=== PATIENT | male | born 1945 | race Caucasian/White ===

== ENCOUNTER 2022-09-08 09:19 | Outpatient (OUT) | payer MEDICARE, OTHER, SELFPAY ==
[2022-09-08 12:27] LABS: Prostate Specific Antigen Dx 0.96 ng/mL (<=4.00)
[2022-09-09 08:09] LABS: Testosterone 322 ng/dL (264-916)
== END 2022-09-08 09:20 ==
PROVIDERS: PCP Family Medicine
DX: N40.1 Benign prostatic hyperplasia with lower urinary tract symptoms (principal)
CPT/HCPCS: 36415; 84153

== ENCOUNTER 2022-09-08 09:25 | Outpatient (OUT) | payer MEDICARE, OTHER, SELFPAY ==
[2022-09-08 11:23] LABS: Basophils Percent Auto 0.4 % (0.2-2.0); Eosinophils Absolute Auto 0.1 10^3/uL (0.0-0.7); Eosinophils Percent Auto 2.1 % (0.9-7.0); Hematocrit 56.9 % (42.0-54.0); Hemoglobin 18.9 g/dL (14.0-18.0); Immature Granulocytes Abs Auto 0.02 10^3/uL (0.00-0.03); Immature Granulocytes Pct Auto 0.3 % (0.0-0.5); Lymphocytes Absolute Auto 1.7 10^3/uL (1.2-3.8); Lymphocytes Percent Auto 25.3 % (20.5-60.0); Mean Corpuscular HGB Conc 33.2 g/dL (29.9-35.2); Mean Corpuscular Hemoglobin 31.1 pg (25.9-34.0); Mean Corpuscular Volume 93.6 fL (80.0-94.0); Monocytes Absolute Auto 0.7 10^3/uL (0.3-0.8); Monocytes Percent Auto 9.9 % (1.7-12.0); Neutrophils Absolute Auto 4.1 10^3/uL (1.4-6.5); Platelet Count 154 10^3/uL (150-450); Red Blood Count 6.08 10^6/uL (4.70-6.10); Red Cell Distribution Width 14.3 % (11.0-15.0); White Blood Count 6.7 10^3/uL (4.0-11.0)
[2022-09-08 13:26] LABS: Alanine Aminotransferase 48 U/L (16-63); Albumin Globulin Ratio 0.9; Albumin Level 3.8 g/dL (3.4-5.0); Alkaline Phosphatase 75 U/L (46-116); Anion Gap 11.4; Aspartate Amino Transferase 26 U/L (15-37); Bilirubin Total 0.8 mg/dL (0.2-1.0); Calcium 9.4 mg/dL (8.5-10.1); Carbon Dioxide 27.1 mmol/L (21.0-32.0); Chloride 104 mmol/L (98-107); Estimated GFR (African America >60 (>=60); Estimated GFR (Non-African Ame 52 (>=60); Globulin 4.3 g/dL; Glucose 105 mg/dL (74-106); Potassium 4.5 mmol/L (3.5-5.1); Sodium 138 mmol/L (136-145); Thyroid Stimulating Hormone 1.196 uIU/mL (0.358-3.740); Total Protein 8.1 g/dL (6.4-8.2)
== END 2022-09-08 09:26 ==
LOC: LAB 09:27
PROVIDERS: PCP Family Medicine; Visit Provider Family Medicine
DX: N40.1 Benign prostatic hyperplasia with lower urinary tract symptoms (principal); E03.9 Hypothyroidism, unspecified; I10 Essential (primary) hypertension; N52.9 Male erectile dysfunction, unspecified
CPT/HCPCS: 36415; 80053; 84153; 84403; 84436; 84443; 85025

== ENCOUNTER 2022-10-24 20:50 | Outpatient (OUT) | payer MEDICARE, OTHER, SELFPAY | END 2022-10-24 20:51 | disposition home or self-care (01) | LOC: SLEEP 20:50 | PROVIDERS: PCP Psychiatry & Neurology Neurology; Visit Provider Psychiatry & Neurology Neurology | DX: G47.33 Obstructive sleep apnea (adult) (pediatric) (principal) | CPT/HCPCS: 95811 ==

== ENCOUNTER 2022-11-03 07:56 | Outpatient (OUT) | payer MEDICARE, OTHER, SELFPAY ==
[2022-11-03 08:27] LABS: Hemoglobin 17.5 g/dL (14.0-18.0)
[2022-11-03 09:08] LABS: Alanine Aminotransferase 45 U/L (16-63); Albumin Level 3.8 g/dL (3.4-5.0); Alkaline Phosphatase 71 U/L (46-116); Aspartate Amino Transferase 22 U/L (15-37); Bilirubin Direct 0.2 mg/dL (0.0-0.2); Bilirubin Total 0.7 mg/dL (0.2-1.0); Chol HDL Ratio 4.7; Cholesterol 169 mg/dL (<=200); Globulin 3.8 g/dL; HDL Cholesterol 36 mg/dL (40-60); Total Protein 7.6 g/dL (6.4-8.2); Triglycerides 88 mg/dL (<=150); VLDL CHOLESTEROL 17.6 mg/dL
== END 2022-11-03 07:57 ==
LOC: LAB 11-14 07:57
PROVIDERS: PCP Psychiatry & Neurology Neurology
DX: E29.1 Testicular hypofunction (principal)
CPT/HCPCS: 36415; 80061; 80076; 85014; 85018

== ENCOUNTER 2022-11-29 09:31 | Outpatient (OUT) | payer MEDICARE, OTHER, SELFPAY ==
[2022-11-30 04:10] LABS: Testosterone 561 ng/dL (264-916)
== END 2022-11-29 09:32 | disposition home or self-care (01) ==
LOC: LAB 09:34
PROVIDERS: PCP Family Medicine
DX: E29.1 Testicular hypofunction (principal)
CPT/HCPCS: 36415; 84403

== ENCOUNTER 2023-03-04 10:22 | Outpatient (OUT) | payer MEDICARE, OTHER, SELFPAY ==
[2023-03-05 08:12] LABS: Testosterone 530 ng/dL (264-916)
== END 2023-03-04 10:23 | disposition home or self-care (01) ==
LOC: LAB 10:24
PROVIDERS: PCP Family Medicine; Visit Provider Physician Assistant
DX: E29.1 Testicular hypofunction (principal)
CPT/HCPCS: 36415; 84403

== ENCOUNTER 2023-06-14 10:04 | Outpatient (OUT) | payer MEDICARE, OTHER, SELFPAY ==
--- OUTSIDE RECORDS SUMMARY | 2023-06-14 10:28 | XMS_ITS | CCD ---
Author Name Unknown Address [address] [place] [id number] Organization [facility] Care Team Providers Care Loading Inspector Name Role Phone NARCISO MARINELLI Attending Unavailable RICE, MURALI Blancas Referring Unavailable FANNING, NARCISO Zapien Referring Unavailable FANLUISA, NARCISO Zapien Attending Unavailable RUPERTO BLAS Referring Unavailab Frederick Villafuerte Primary Care Physician [phone] LISA, DR HARMAN Primary Care Unavailable SCOTT, DR MURALI Blancas Consulting Unavailable RICE, DR MURALI Blancas Admitting Unavailable RICE, DR MURALI Blanacs Attending Unavailable HOUSE, DR HARMAN Admitting Unavailable HOUSE, DR HARMAN Attending Unavailable HOUSE, DR HARMAN Consulting Unavailable HOUSE, DR HARMAN Primary Care Unavailable RICE, DR MURALI Blancas Attending Unavailable HOUSE, DR HARMAN Primary Care Unavailable RICE, DR MURALI Blancas Consulting Unavailable RICE, DR MURALI Blancas Admitting Unavailable HOUSE, DR HARMAN Primary Care Unavailable RICE, DR MURALI Blancas Attending Unavailable RICE, DR MURALI Blancas Consulting Unavailable SCOTT, DR MURALI Blancas Admitting Unavailable Magnolia Costa Unavailable Murali SCHRADER Attending Unavailable DARRION VIERA Attending Unavailab DARRION Mays Attending Unavailab DARRION Mays Admitting Unavailab DARRION Mays Attending Unavailab le SCOTT, Murali Blancas Attending Unavailable Myrna Isbell Unavailable Allergies Allergy Classification Reported Allergen(s) Allergy Type Date of Onset Reaction(s) Facility (1 source) No Known Medication Allergies; 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: [No Known Medication Allergies] Propensity to adverse reactions (disorder) [facility] Repository Medications Current Medications Medication Drug Class(es) Dates Sig (Normalized) Sig (Original) amoxicillin 875 mg / clavulanate 125 mg oral tablet (1 source) Penicillin-class Antibacterial Start: 03-19-2023 take 1 tablet by mouth every twelve hours Amoxicillin-Pot Clavulanate 875-125 MG 1 tablet Orally every 12 hrs for 10 day(s) Mar, Active azithromycin 250 mg oral tablet (2 sources) Macrolide Antimicrobial Start: 03-15-2023 Zithromax Z-Jean-Claude 250 MG as directed Orally Mar, Active levothyroxine sodium 0.075 mg oral tablet (6 sources) l-Thyroxine Start: 10-10-2020 take 1 tablet by mouth once daily levothyroxine 75 mcg (0.075 mg) Tab mcg tab(s), Oral, Daily, Refills(s) 0 Start Date: 10/10/20 Status: Ordered take 1 tablet by bryanna th once daily in the morning Levothyroxine Sodium 75 MCG 1 tablet in the morning on an empty stomach Orally Once a day Active omeprazole 10 mg delayed release oral capsule (6 sources) Proton Pump Inhibitor Start: 12-29-2018 take 1 mg by mouth once daily Prilosec 10 mg Cap-EC mg cap(s), Oral, Daily, Refills(s) 0 Start Date: 12/29/18 Status: Ordered take 1 capsule by mouth once skye ly PriLOSEC 10 MG 1 capsule 30 minutes before morning meal Orally Once a day Active tadalafil 5 mg oral tablet (3 sources) Phosphodiesterase 5 Inhibitor Start: 10-23-2018 take 1 tablet by mouth once daily Cialis 5 mg oral tablet 5 mg = 1 tab(s), Oral, Daily Start Date: 10/23/18 Status: Ordered Temazepam (5 sources) Benzodiazepine Start: 12-25-2018 temazepam 30 m g Start Date: 12/25/18 Status: Ordered Temazepam Not-Ta radha/PRN testosterone cypionate 100 mg/ml injectable solution (5 sources) Androgen Start: 10-17-2022 testosterone c ypionate 100 mg/mL intramuscular solution 50 mg, IntraMuscular, q5day, # 10 mL, Refills(s) 5, Pharmacy: [facility] #[id number], 172, cm, 10/17/22 13:50:00 EDT, Height/Length Dosing, 95, kg, 10/17/22 13:50:00 EDT, Weight Dosing Start Date: 10/17/22 Status: Ordered Start: 01-22-2022 testosterone c ypionate 100 mg/mL intramuscular solution 50 mg, IntraMuscular, q5day, # 10 mL, Refills(s) 3, Pharmacy: [facility] #[id number], 172, cm, 10/16/21 14:53:00 EDT, Height/Length Dosing, 95, kg, 10/16/21 14:53:00 EDT, Weight Dosing Start Date: 01/22/22 Status: Ordered Start: 10-16-2021 testosterone c ypionate 100 mg/mL intramuscular solution 50 mg, IntraMuscular, q7day, # 10 mL, Refills(s) 3, Pharmacy: [facility] #[id number], 172, cm, 10/16/21 14:53:00 EDT, Height/Length Dosing, 95, kg, 10/16/21 14:53:00 EDT, Weight Dosing Start Date: 10/16/21 Status: Ordered Start: 09-28-2019 Depo-Testoster one 50 mg, IntraMuscular Start Date: 09/28/19 Status: Ordered Testosterone Cypionate 50 MG/ML (3 sources) Testosterone Cyp ionate 50 MG/ML as directed Injection Active Timolol (6 sources) beta-Adrenergic Lala Start: 10-10-2020 Timolol GFS 0.5% Gel drop(s), Daily, Refill(s) 0 Start Date: 10/10/20 Status: Ordered Start: 10-10-2020 Timolol GFS 0. 5% Gel drop(s), Daily, Refill(s) 0 Start Date: 10/10/20 Status: Ordered Timolol Maleate Active valsartan 80 mg oral tablet (6 sources) Angiotensin 2 Receptor Lala Start: 10-10-2020 take 1 mg by mouth once daily valsartan 80 mg Tab mg tab(s), Oral, Daily, Refills(s) 0 Start Date: 10/10/20 Status: Ordered take 1 tablet by bryanna every twelve hours Valsartan 40 MG 1 tablet Orally Twice a day Active zolpidem tartrate 12.5 mg extended release oral tablet (4 sources) gamma-Aminobutyric Acid-ergic Agonist Start: 10-17-2022 take 1 tablet by mouth once daily at bedtime as needed for sleep Ambien CR 12.5 mg Tab-ER 12.5 mg = 1 tab(s), Oral, Once a day (at bedtime), PRN for sleep Start Date: 10/17/22 Status: Ordered Completed/Discontinued Medications Medication Drug Class(es) Dates Sig (Normalized) Sig (Original) methylPREDNISolone 4 mg oral tablet (3 sources) Corticosteroid Start: 12-31-2019 Medrol 4 MG as directed Orally for 6 days Dec, Not-Taking/PRN Triamcinolone (3 sources) Corticosteroid Start: 12-31-2019 KENALOG - 10 mg Dec, 40 mg Problems Active Problems Problem Classification Problem Date Documented Da te Episodic/Chronic Coagulation and hemorrhagic disorders (1 source) Thrombocytopenia, unspecified; 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: [THROMBOCYTOPENIA UNSPECIFIED] Onset: 09-12-2021 Chronic Essential hypertension (1 source) Essential (primary) hypertension; 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: [ESSENTIAL PRIMARY HYPERTENSION] Onset: 09-12-2021 Chronic Genitourinary symptoms and ill-defined conditions (4 sources) Delay when starting to pass urine; 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: [Microscopic hematuria] Onset: 10-17-2022 10-23-2018 Episodic Hyperplasia of prostate (14 sources) Benign prostatic hypertrophy with outflow obstruction; 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: [Benign prostatic hyperplasia with lower urinary tract symptoms] Onset: 09-01-2021 Chronic Other circulatory disease (1 source) Elevated blood-pressure reading, without diagnosis of hypertension Episodic Other endocrine disorders (3 sources) Testicular hypofunction; 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: [Testicular hypofunction] Onset: 10-16-2021 Chronic Other endocrine disorders (3 sources) Male hypogonadism 10-23-2018 Chronic Other endocrine disorders (5 sources) Testicular hypofunction; 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: [TESTICULAR HYPOFUNCTION] Onset: 09-07-2021 Chronic Other hematologic conditions (1 source) Secondary polycythemia; 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: [Secondary polycythemia] Onset: 05-29-2018 Episodic Other male genital disorders (3 sources) Impotence 10-23-2018 Chronic Other nutritional; endocrine; and metabolic disorders (3 sources) Body mass index 30+ - obesity 04-04-2020 Chronic Other upper respiratory infections (3 sources) Acute pharyngitis, unspecified; 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: [Acute pansinusitis, unspecified] Episodic Residual codes; unclassified (3 sources) Sleep apnea 10-23-2018 Chronic Residual codes; unclassified (3 sources) Insomnia 10-23-2018 Episodic Thyroid disorders (1 source) Hypothyroidism, unspecified; 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: [HYPOTHYROIDISM UNSPECIFIED] Onset: 09-12-2021 Chronic Unclassified (3 sources) Asymptomatic microscopic hematuria 04-04-2020 Unclassified (3 sources) Drug therapy finding 10-23-2018 Past or Other Problems Problem Classification Problem Date Documented Da te Episodic/Chronic Unclassified (1 source) Contact with and (suspected) exposure to covid-19 Z20.822 Results Test Name Value Interpretation Reference Range Facility [facility] 03-19-2023 Lab Reports [id number] IFF Normal [facility] COVID + FLU Quick Testingon 03-14-2023 SARS-CoV-2 (COVID-19) RNA STEFF+probe Ql (Unsp spec) Negative [facility] Other COVID + FLU Quick Testing Negative [facility] Other Quick Strepon 03-14-2023 S. pyogenes Org specific cx Ql (Throat) Negative [facility] Other Quick Strep [facility] Other [facility] 12-04-2022 Lab Reports [id number] D:127 Normal [facility] 11-27-2022 Lab Reports [id number] D:127 Normal [facility] C Urineon 10-19-2022 Bacteria identified Cx Nom (U) Microbiology PROCEDURE: Urine Culture [R1] SOURCE: U Random BODY SITE: COLLECTED DATE/TIME: 10/17/2022 15:25 EDT RECEIVED DATE/TIME: 10/17/2022 18:26 EDT START DATE/TIME: 10/17/2022 18:26 EDT FREE TEXT SOURCE: EWA VIERA PA-C, PA-C, JENNIFER E FINAL REPORTS Final Report [] Verified Date/Time: 10/19/2022 11:24 EDT No growth at 2 days. Performing Locations R1: This test was performed at: [facility], [address] [place] [address], [address] [email or web address]], [facility] Comment on above: Performed By: #### 2 [id number] ####[facility] [address] [place] [address] [facility] 10-19-2022 Lab Reports [id number] CD:127 [facility] Screenson 10-19-2022 Screens [id number] CD:127 [facility] Ambulatory Visit Summaryon 0 10-17-2022 Ambulatory Visit Summary LAMONT LOWERY :1945 MRN: Visit Date:10/17/2022 Ambulatory Visit Instructions Your Diagnosis BPH with urinary obstruction Male hypogonadism Asymptomatic microscopic hematuria Tests Performed Urnls Dip Stick Auto w/o Microscopy POC [id number] Your Care Team Attending Physician - EWA VIERA PA-C Primary Care Physician - Frederick Gonzalez DO This Is Your Medications List testosterone (testosterone cypionate 100 mg/mL intramuscular solution) Contact prescribing physician if questions or concerns levothyroxine (levothyroxine 75 mcg (0.075 mg) Tab) omeprazole (Prilosec 10 mg Cap-EC) tadalafil (Cialis 5 mg oral tablet) timolol ophthalmic (Timolol GFS 0.5% Gel) valsartan (valsartan 80 mg Tab) zolpidem (Ambien CR 12.5 mg Tab-ER) Procedures Performed Appendectomy, Carpal tunnel release. Discharge Vitals Heart Rate (Peripheral) 81 Blood Pressure 172/112 Height 172.0 cm Height 68 in Weight 95 kg Weight 209 lb BMI 32.11 What to do next Scheduled Follow-Up Appointments Saturday 1:20 PM EDT With: EWA VIERA PA-C Where: [facility] Patient Educationon 10-18-19 23 Patient Education Urology Hypogonadism, Male Male hypogonadism is a condition of having a level of testosterone that is lower than normal. Testosterone is a chemical, or hormone, that is made mainly in the testicles. In boys, testosterone is responsible for the development of male characteristics during puberty. These include: ? Making the penis bigger. ? Growing and building the muscles. ? Growing facial hair. ? Deepening the voice. In adult men, testosterone is responsible for maintaining: ? An interest in sex and the ability to have sex. ? Muscle mass. ? Sperm production. ? Red blood cell production. ? Bone strength. Testosterone also gives men energy and a sense of well-being. Testosterone normally decreases as men age and the testicles make less testosterone. Testosterone levels can vary from man to man. Not all men will have signs and symptoms of low testosterone. Weight, alcohol use, medicines, and certain medical conditions can affect a man's testosterone level. What are the causes? This condition is caused by: ? A natural decrease in testosterone that occurs as a man grows older. This is the main cause of this condition. ? Use of medicines, such as antidepressants, steroids, and opioids. ? Diseases and conditions that affect the testicles or the making of testosterone. These include: ? Injury or damage to the testicles from trauma, cancer, cancer treatment, or infection. ? Diabetes. ? Sleep apnea. ? Genetic conditions that men are born with. ? Disease of the pituitary gland. This gland is in the brain. It produces hormones. ? Obesity. ? Metabolic syndrome. This is a group of diseases that affect blood pressure, blood sugar, cholesterol, and belly fat. ? HIV or AIDS. ? Alcohol abuse. ? Kidney failure. ? Other long-term or chronic diseases. What are the signs or symptoms? Common symptoms of this condition include: ? Loss of interest in sex (low sex drive). ? Inability to have or maintain an erection (erectile dysfunction). ? Feeling tired (fatigue). ? Mood changes, like irritability or depression. ? Loss of muscle and body hair. ? Infertility. ? Large breasts. ? Weight gain (obesity). How is this diagnosed? Your health care provider can diagnose hypogonadism based on: ? Your signs and symptoms. ? A physical exam to check your testosterone levels. This includes blood tests. Testosterone levels can change throughout the day. Levels are highest in the morning. You may need to have repeat blood tests before getting a diagnosis of hypogonadism. Depending on your medical history and test results, your health care provider may also do other tests to find the cause of low testosterone. How is this treated? This condition is treated with testosterone replacement therapy. Testosterone can be given by: ? Injection or through pellets inserted under the skin. ? Gels or patches placed on the skin or in the mouth. Testosterone therapy is not for everyone. It has risks and side effects. Your health care provider will consider your medical history, your risk for prostate cancer, your age, and your symptoms before putting you on testosterone replacement therapy. Follow these instructions at home: ? Take ldnk-ril-ygburjk and prescription medicines only as told by your health care provider. ? Eat foods that are high in fiber, such as beans, whole grains, and fresh fruits and vegetables. Limit foods that are high in fat and processed sugars, such as fried or sweet foods. ? If you drink alcohol: ? Limit how much you have to 0?2 drinks a day. ? Know how much alcohol is in your drink. In the [place] one drink equals one 12 oz bottle of beer (355 mL), one 5 oz glass of wine (148 mL), or one 1? oz glass of hard liquor (44 mL). ? Return to your normal activities as told by your health care provider. Ask your health care provider what activities are safe for you. ? Keep all follow-up visits. This is important. Contact a health care provider if: ? You have any of the signs or symptoms of low testosterone. ? You have any side effects from testosterone therapy. Summary ? Male hypogonadism is a condition of having a level of testosterone that is lower than normal. ? The natural drop in testosterone production that occurs with age is the most common cause of this condition. ? Low testosterone can also be caused by many diseases and conditions that affect the testicles and the making of testosterone. ? This condition is treated with testosterone replacement therapy. ? There are risks and side effects of testosterone therapy. Your health care provider will consider your age, medical history, symptoms, and risks for prostate cancer before putting you on testosterone therapy. This information is not intended to replace advice given to you by your health care provider. Make sure you discuss any questions you have with your health care provider. Document Revised: 11/17/2020 Document (more content not included)... Normal [facility] Urinalysison 10-17-2022 Bilirubin Ql (U) Negative Normal Negative [facility] Comment on above: Performed By: #### 1 [id number] ####[facility] [address] [place] [address] Clarity (U) CLEAR Normal Clear [facility] Comment on above: Performed By: #### 1 [id number] ####[address] [address] Color (U) YELLOW Normal Yellow [facility] Comment on above: Performed By: #### 1 [id number] ####[address] [address] Epithelial cells.squamous LM.HPF (Urine sed) [#/Area] 0-2 Normal 0-2 [facility] Comment on above: Performed By: #### 1 [id number] ####[address] [address] Glucose Test strip (U) [Mass/Vol] Negative Normal Negative [facility] Comment on above: Performed By: #### 1 [id number] ####[address] [address] Hemoglobin Ql (U) Negative Normal Negative [facility] Comment on above: Performed By: #### 1 [id number] ####[address] [address] Ketones (U) [Mass/Vol] Negative Normal Negative [facility] Comment on above: Performed By: #### 1 [id number] ####[address] [address] [place].plasma/Lit hium.RBC (Bld) [Mass ratio] 0-3 Normal 0-3 [facility] Comment on above: Performed By: #### 1 [id number] ####[address] [address] Nitrite Ql (U) Negative Normal Negative [facility] Comment on above: Performed By: #### 1 [id number] ####[address] [address] pH (U) 6.0 [pH] Invalid Interpretation Code 5.0-9.0 [facility] Comment on above: Performed By: #### 1 [id number] ####[facility] [address] [place] [address] Protein (U) [Mass/Vol] Negative Normal Negative [facility] Comment on above: Performed By: #### 1 [id number] ####[address] [place] [address] Specific gravity (U) [Rel density] 1.015 Invalid Interpretation Code 1.005-1.030 [facility] Comment on above: Performed By: #### 1 [id number] ####[facility] [address] [place] [address] Type of Urine collection method Random Urine Normal [facility] Comment on above: Performed By: #### 1 [id number] ####[address] [address] Urobilinogen Qn (U) 0.2 {Elizabeth'U}/dL Normal 0.0-1.0 [facility] Comment on above: Performed By: #### 1 [id number] ####[facility] [address] [place] [address] WBC Auto Ql (U) Negative Normal Negative [facility] Comment on above: Performed By: #### 1 [id number] ####[facility] [address] [place] [address] WBC LM.HPF (Urine sed) [#/Area] 0-5 Normal 0-5 [facility] Comment on above: Performed By: #### 1 [id number] ####[facility] [address] [place] [address] Urology Office/Clinic Noteon 10-17-2022 Urology Office/Clinic Note Chief Complaint 6 month follow up w/ Testosterone levels HPI Staff Lamont is a 77 yr old male here for a 6 mos f/u with a testosterone level. Previous DX:BPH with Urinary Obstruction and Male Hypogonadism. Testosterone Levels:09/01/21-328, 01/26/22-740, 05/24/22- 749 (most recent). Pt is not currently on any BPH meds. Pt is taking 50mg 1/2 depo testosterone x 5 days, pt gives himself the injection. Previous PSA on 09/01/21 was 1.04. Most recent PSA 09/08/22 was 0.96. IPSS SCORE 8. Dysuria: denies pain and burning Incomplete bladder emptying: denies Hematuria: denies visible blood Frequency: every 2 hours Urgency: denies Nocturia: once a night Stream: denies hesitancy, spray stream towards the end Leaking: denies Post void dripping: denies Wearing pads/ Depends: denies Urge incontinence: denies Stress incontinence: denies Incontinence without Sensory Awareness: denies Abdominal pain: denies Flank pain: denies Sexual complaints: denies History of Present Illness staff HPI reviewed and agree. Review of Systems PHQ Score Initial Depression Screen Score: 0 no fever, chills, malaise, myalgia. no rash/lesions. no chest pain, palpitations, or SOB. no abdominal pain, nausea, vomiting. no unilateral calf swelling, redness, pain Physical Exam Vitals & Measurements HR: 81(Peripheral) BP: 172/112 HT: 68 in HT: 172.0 cm WT: 95 kg WT: 209 lb BMI: 32.11 General: nontoxic, NAD Mouth: moist mucosa Lungs: normal respiratory effort Cardio: regular rate, good distal perfusion Abdomen: nondistended, no suprapubic distention or tenderness, no CVA tenderness Neurologic: Grossly normal Skin: No rashes or suspicious lesions Assessment/Plan 1. BPH with urinary obstruction (N40.1: Benign prostatic hyperplasia with lower urinary tract symptoms) IPSS 8(7). QOL 2 Pt is currently taking Cialis 5 mg daily_and is mostly satisfiedwith overall symptom control. Pt is experiencing noside effects. Pt prefers to continue current regimen with no changes at this time. Does not need refills today. 2. Male hypogonadism (E29.1: Testicular hypofunction) Testosterone 01/26/22 - 740 09/01/21 - 328 05/24/22 - 749 09/08/22 - 322 pt gets his level drawn the day before he is due for next injection. he's been doing it this way for years w RWR and does not wish to change anything at this point. requested standing order to check it q3mos. written order provided. Currently taking 50mg every 5-7 days. Pt gives himself the injections. Pt states he tried prolonging the # of days btwn injections from 5 to 7 but notices a huge difference in sx on day 6 and day 7. would like to remain on 50mg every 5 days. refills provided. Discussed that the pt's HCT and HGB levels are high. Advised pt that he should donate blood TONEY to lower his levels and per guidelines he should withhold injections until he does so. Did give him a few upcoming dates from [employer] website of local blood drives. Pt will repeat his H&H levels after he donates. He will continue to donate blood every 2-3 mos to keep levels within normal range. PSA 09/01/21 - 1.04 09/08/22 - 0.96 Pt hasn't had lipid or LFTs in >1yr. was given written order to obtain in next couple weeks when he does repeat H&H. f/u 1 yr w PSA, LFTs, Lipids, H&H, total T level. call in meantime if feels dosing needs adjusted and we will schedule ov. 3. Asymptomatic microscopic hematuria (R31.21: Asymptomatic microscopic hematuria) today's in-office UA shows trace-intact hgb. we will send for microscopic eval and culture. if shows significant microhematuria and completely negative cx, then we will need to proceed with hematuria eval. hematuria eval components were not discussed in depth during today's visit. if + will need phone call or o.v. to discuss at length. if micro negative then no additional action needed at this time - pt aware that no news is good news in this regard. Follow up in 1 yr w/ Labs. All questions/concerns were discussed. Pt to call the office if he encounters any issues prior. Pt acknowledges understanding. Follow-up With When Contact Information EWA VIERA PA-C, URL [address] [place] [address] Additional Instructions: 1 yr w multiple labs Patient Education Hypogonadism, Male Documentation recorded by the scribmisa Munguia accurately reflects the services(s) I performed and decisions made by me. Authenticated by Ewa Viera PA-C on 10/17/2022 16:18:03. Pippa Abel, personally scribed for Ewa Viera PA-C on 10/17/2022 14:57:58. . Problem List/Past Medical History Ongoing Anticoagulated Asymptomatic microscopic hematuria BMI 30.0-30.9,adult BPH with urinary obstruction Male hypogonadism Male impotence Urinary hesitancy Historical Insomnia Sleep apnea Procedure/Surgical History Appendectomy, Carpal tunnel release. Medication (more content not included)... Normal [facility] Comment on above: Result Comment: Elec tronically Signed By: EWA VIERA PA-C\.br\Date and Time Signed: 10/17/22 16:19 EDT [facility] 05-28-2022 Lab Reports [id number] D:127 Normal [facility] TESTOSTERONE, TOTALon 2022 Testosterone [Mass/Vol] 749 ng/dL Normal [id number] [facility] Comment on above: Result Comment: Adul t male reference interval is based on a population of healthy nonobese males (BMI <30) between 19 and 39 years old. martha Roman.al. JCEM 2017,102;[id number]. PMID: [id number]. Performed By: #### T ESTTOT #### [facility] [address] [place] [address] Dr. Lazaro Sam [place] 04-18-2022 Screens [id number] [id number] D:127 Normal [facility] Ambulatory Visit Summaryon 0 04-16-2022 Ambulatory Visit Summary LAMONT LOWERY :1945 MRN:[id number] Visit Date:04/16/2022 Ambulatory Visit Instructions Your Diagnosis BPH with urinary obstruction Male hypogonadism Tests Performed Urnls Dip Stick Auto w/o Microscopy POC 36767 Your Care Team Attending Physician - SCOTT HOANG, Murali Blancas Primary Care Physician - House DO, Frederick P This Is Your Medications List testosterone (testosterone cypionate 100 mg/mL intramuscular solution) Contact prescribing physician if questions or concerns levothyroxine (levothyroxine 75 mcg (0.075 mg) Tab) omeprazole (Prilosec 10 mg Cap-EC) tadalafil (Cialis 5 mg oral tablet) temazepam testosterone (testosterone cypionate 100 mg/mL intramuscular solution) timolol ophthalmic (Timolol GFS 0.5% Gel) valsartan (valsartan 80 mg Tab) Procedures Performed Appendectomy, Carpal tunnel release. Discharge Vitals Height 172.0 cm Height 68 in Weight 95 kg Weight 209 lb BMI 32.11 What to do next Scheduled Follow-Up Appointments Saturday 2:15 PM EDT With: Murali SCHRADER MD Where: [facility] Patient Educationon 04-16-19 23 Patient Education Urology Testicular Self-Exam A self-examination of your testicles (testicular self-exam) involves looking at and feeling your testicles for abnormal lumps or swelling. Several things can cause swelling, lumps, or pain in your testicles. Some of these causes are: ? Injuries. ? Inflammation. ? Infection. ? Buildup of fluids around your testicle (hydrocele). ? Twisted testicles (testicular torsion). ? Testicular cancer. Why is it important to do a testicular self-exam? Self-examination of the testicles and the left and right groin areas may be recommended if you are at risk for testicular cancer. Your groin is where your lower abdomen meets your upper thighs. You may be at risk for testicular cancer if you have: ? An undescended testicle (cryptorchidism). ? A history of previous testicular cancer. ? A family history of testicular cancer. How to do a testicular self-exam The testicles are easiest to examine after a warm bath or shower. They are more difficult to examine when you are cold. This is because the muscles attached to the testicles retract and pull them up higher or into the abdomen. A normal testicle is egg-shaped and feels firm. It is smooth and not tender. The spermatic cord can be felt as a firm, spaghetti-like cord at the back of your testicle. Look and feel for changes ? Stand and hold your penis away from your body. ? Look at each testicle to check for lumps or swelling. ? Roll each testicle between your thumb and forefinger, feeling the entire testicle. Feel for: ? Lumps. ? Swelling. ? Discomfort. ? Check the groin area between your abdomen and upper thighs on both sides of your body. Look and feel for any swelling or bumps that are tender. These could be enlarged lymph nodes. Contact a health care provider if: ? You find any bumps or lumps, such as a small, hard, pea-sized lump. ? You find swelling, pain, or soreness. ? You see or feel any other changes in your testicles. Summary ? A self-examination of your testicles (testicular self-exam) involves looking at and feeling your testicles for any changes. ? Self-examination of the testicles and the left and right groin areas may be recommended if you are at risk for testicular cancer. ? You should check each of your testicles for lumps, swelling, or discomfort. ? You should check for swelling or tender bumps in your groin area between your lower abdomen and upper thighs. This information is not intended to replace advice given to you by your health care provider. Make sure you discuss any questions you have with your health care provider. Document Released: 06/24/2001 Document Revised: 07/09/2019 Document Reviewed: 02/11/2017 [employer] Patient Education ? 2019 [employer] [facility] Urology Office/Clinic Noteon 04-16-2022 Urology Office/Clinic Note Chief Complaint 6 month follow up w/ testosterone HPI Staff Lamont is a 76 y.o. male here for 6 month follow up w/ testosterone level. Previous Dx: asymptomatic microscopic hematuria, BPH w/ urinary obstruction, hypogonadism, impotence, urinary hesitancy. No urological procedures. Current testosterone 740 done on 01/26/22. Previous testosterone 328 done on 09/01/21. Previous PSA 1.04 done on 09/01/21. No current PSA. Dysuria: denies Incomplete bladder emptying: denies Hematuria: denies Frequency: only w/ caffeine Urgency: denies Nocturia: denies Stream: steady stream but weakens at end Leaking: denies Post void dripping: denies Wearing pads/ Depends: denies Urge incontinence: denies Stress incontinence: denies Incontinence without Sensory Awareness: denies Abdominal pain: denies Flank pain: denies Sexual complaints: _ History of Present Illness Tests Reviewed: Reviewed UA. I have reviewed and verified the staff HPI to be accurate for this encounter. I have reviewed the previous health record information and history for this patient from Dr. Schrader There have been no associated fever, chills, flank pain, or blood in the urine. Denies any urinary infections since last encounter. Review of Systems PHQ Score Initial Depression Screen Score: 0 ROS - Provider Constitutional: denies weight loss, denies hot flashes. Eyes: denies eye problems. Gastrointestinal: denies nausea, denies vomiting. Cardiovascular: denies chest pain or angina. Integumentary: no dryness Musculoskeletal: denies musculoskeletal symptoms. ENMT: denies otolaryngeal symptoms. Respiratory: no shortness of breath. Heme/Lymph: denies easy bleeding tendency, denies easy bruising tendency. Psychiatric: no confusion, no anxiety. Genitourinary: denies dysuria, denies hematuria, denies discharge, denies urinary frequency, denies urinary hesitancy, denies nocturia, denies incontinence, denies genital sores, denies decreased libido, and denies erectile dysfunction. Physical Exam Vitals & Measurements HT: 68 in HT: 172.0 cm WT: 95 kg WT: 209 lb BMI: 32.11 General Appearance: alert, no distress, well nourished, well developed male. Genitourinary: normal scrotum, normal testes, normal urethra, normal epididymis, normal vas deferens/spermatic cord. Flank Pain: none. Bladder: nonpalpable. Assessment/Plan 1. BPH with urinary obstruction (N40.1: Benign prostatic hyperplasia with lower urinary tract symptoms) IPSS(7) UA today shows trace-intact blood No urological procedures Currently not on any BPH medications at this time. PSA No recent PSA 09/01/21-1.04 PT will have his PSA checked in 6 months. PT agrees with this plan. All questions and concerns were discussed. Pt acknowledge and understands. Pt will call our office with any changes in urinary symptoms. 2. Male hypogonadism (E29.1: Testicular hypofunction) Testosterone 01/26/22- 740 09/01/21- 328 Currently taking 50mg 1/2 depo testosterone every 5 days. Pt gives his self the injections. Will continue to monitor with repeat labs. Well interesting testosterone level at 740 he is on the 50 every 5 days gives himself injections of the Depo he is happy where it is 6 months refill his medications redo the test and see him that Documentation recorded by the scribe, Sharon Headley, accurately reflects the services(s) I performed and decisions made by me. Authenticated by Dr. Schrader on 04/16/2022 16:09:10. Follow-up With When Contact Information SCOTT HOANG, SAMI Wells Within [address] [place] [address]- Additional Instructions: PSA & testosterone Patient Education Testicular Self-Exam Problem List/Past Medical History Ongoing Anticoagulated Asymptomatic microscopic hematuria BMI 30.0-30.9,adult BPH with urinary obstruction Male hypogonadism Male impotence Urinary hesitancy Historical Insomnia Sleep apnea Procedure/Surgical History Appendectomy, Carpal tunnel release. Medications Cialis 5 mg oral tablet, 5 mg= 1 tab(s), Oral, Daily levothyroxine 75 mcg (0.075 mg) Tab, Oral, Daily Prilosec 10 mg Cap-EC, Oral, Daily temazepam, 30 mg testosterone cypionate 100 mg/mL intramuscular solution, 50 mg, IntraMuscular, q5day, 3 refills testosterone cypionate 100 mg/mL intramuscular solution, 50 mg, IntraMuscular, q7day, 3 refills Timolol GFS 0.5% Gel, Daily valsartan 80 mg Tab, Oral, Daily Allergies No Known Medication Allergies Social History Alcohol Current, 1-2 times per month, 10/23/2018 Substance Abuse Past, Heavy steroid use, 10/23/2018 Tobacco Never (less than 100 in lifetime) Tobacco Use:. Never Smokeless Tobacco Use:., 04/16/2022 Immunizations Vaccine Date Status Comments SARS-CoV-2 (COVID-19) mRNA BNT-162b2 vax 03/16/2021 Recorded 2022-04-16: [id number] SARS-CoV-2 (COVID-19) mRNA BNT-162b2 vax 03/2021 Recorded SARS-CoV-2 (COVID-19) mRNA BNT-162b2 vax 06/29/2020 Recorded SARS-CoV-2 (COVID-19) mRN (more content not included)... Normal [facility] Comment on above: Result Comment: Elec tronically Signed By: Murali SCHRADER MD\.br\Date and Time Signed: 04/16/22 16:09 EST\.br\Electronically Co-Signed By: Nichol Rios\.br\Date and Time Co-Signed: 04/16/22 15:32 EST TESTOSTERONE, TOTALon 2021 Testosterone [Mass/Vol] 740 ng/dL Normal 264-916 [facility] Comment on above: Result Comment: Adul t male reference interval is based on a population of healthy nonobese males (BMI <30) between 19 and 39 years old. Abel et.al. JCEM 2017,102;3004-2368. PMID: [id number]. Performed By: #### T ESTTOT #### [facility] [address] [place] [address] Dr. Lazaro Sam CBC AUTO DIFFon 09-08-2021 BASO # 0.0 103/ul Normal 0.0-0.1 [facility] Comment on above: Performed By: #### C BC #### [facility] [address] [place] [address] Dr. Lazaro Sam Basophils/100 WBC (Bld) 0.4 % Normal 0.2-2.0 [facility] Comment on above: Performed By: #### C BC #### [facility] [address] [place] [address] Dr. Lazaro Sam EO # 0.1 103/ul Normal 0.0-0.7 [facility] Comment on above: Performed By: #### C BC #### [facility] [address] [place] [address] Dr. Lazaro Sam Eosinophils/100 WBC (Bld) 0.6 % Critically low 0.9-7.0 [facility] Comment on above: Performed By: #### C BC #### [facility] [address] [place] [address] Dr. Lazaro aSm Erythrocyte distribution width (RBC) [Ratio] 13.7 % Normal 11.0-15.0 [facility] Comment on above: Performed By: #### C BC #### [facility] [address] [place] [address] Dr. Lazaro Sam Hematocrit (Bld) [Volume fraction] 52.4 % Normal 42.0-54.0 [facility] Comment on above: Performed By: #### C BC #### [facility] [address] [place] [address] Dr. Lazaro Sam Hemoglobin (Bld) [Mass/Vol] 17.3 g/dL Normal 14.0-18.0 [facility] Comment on above: Performed By: #### C BC #### [facility] [address] [place] [address] Dr. Lazaro Sam IG # 0.03 10e3/ul Normal 0.00-0.03 [facility] Comment on above: Performed By: #### C BC #### [facility] [address] [place] [address] Dr. Lazaro Sam IG % 0.4 % Normal 0.0-0.5 [facility] Comment on above: Performed By: #### C BC #### [facility] [address] [place] [address] Dr. Lazaro Sam LYMPH # 1.5 103/ul Normal 1.2-3.8 [facility] Comment on above: Performed By: #### C BC #### [facility] [address] [place] [address] Dr. Lazaro Sam Lymphocytes/100 WBC (Bld) 18.7 % Critically low 20.5-60.0 [facility] Comment on above: Performed By: #### C BC #### [facility] [address] [place] [address] Dr. Lazaro Sam MANUAL DIFF REQ NO Normal [facility] Comment on above: Performed By: #### C BC #### [facility] [address] [place] [address] Dr. Lazaro Sam MCH (RBC) [Entitic mass] 29.7 pg Normal 25.9-34.0 [facility] Comment on above: Performed By: #### C BC #### [facility] [address] [address] [address] Lazaro Sam MCHC (RBC) [Mass/Vol] 33.0 g/dL Normal 29.9-35.2 [facility] Comment on above: Performed By: #### C BC #### [facility] [address] [place] [address] Dr. Lazaro Sam MCV (RBC) [Entitic vol] 90.0 fL Normal 80.0-94.0 [facility] Comment on above: Performed By: #### C BC #### [facility] [address] [place] [address] Dr. Lazaro Sam MONO # 0.6 103/ul Normal 0.3-0.8 [facility] Comment on above: Performed By: #### C BC #### [facility] [address] [place] [address] Dr. Lazaro Sam Monocytes/100 WBC (Bld) 7.7 % Normal 1.7-12.0 [facility] Comment on above: Performed By: #### C BC #### [facility] [address] [place] [address] Dr. Lazaro Sam NEUT # 5.8 103/ul Normal 1.4-6.5 [facility] Comment on above: Performed By: #### C BC #### [facility] [address] [place] [address] Dr. Lazaro Sam Neutrophils/100 WBC (Bld) 72.2 % Normal 43.0-75.0 [facility] Comment on above: Performed By: #### C BC #### [facility] [address] [place] [address] Dr. Lazaro Sam Platelet mean volume (Bld) [Entitic vol] 9.1 fL Critically low 9.5-13.5 [facility] Comment on above: Performed By: #### C BC #### [facility] [address] [place] [address] Dr. Lazaro Sam PLT 162 103/ul Normal 150-450 [facility] Comment on above: Performed By: #### C BC #### [facility] [address] [place] [address] Dr. Lazaro Sam RBC 5.82 106/ul Normal 4.70-6.10 [facility] Comment on above: Performed By: #### C BC #### [facility] [address] [place] [address] Dr. Lazaro Sam WBC 8.1 103/ul Normal 4.0-11.0 [facility] Comment on above: Performed By: #### C BC #### [facility] [address] [place] [address] Dr. Lazaro Sam PROF 14(COMP METB)on 022 Albumin [Mass/Vol] 3.7 g/dL Normal 3.4-5.0 [facility] Comment on above: Performed By: #### C MP, TSH #### [facility] [address] [place] [address] Dr. Lazaro Sam Albumin/Globulin [Mass ratio] 0.9 {ratio} Normal [facility] Comment on above: Performed By: #### C MP, TSH #### [facility] [address] [place] [address] Dr. Lazaro Sam ALP [Catalytic activity/Vol] 72 U/L Normal 46-116 [facility] Comment on above: Performed By: #### C MP, TSH #### [facility] [address] [place] [address] Dr. Lazaro Sam ALT [Catalytic activity/Vol] 42 U/L Normal 16-63 [facility] Comment on above: Performed By: #### C MP, TSH #### [facility] [address] [place] [address] Dr. Lazaro Sam Anion gap [Moles/Vol] 13.4 mmol/L Normal [facility] Comment on above: Performed By: #### C MP, TSH #### [facility] [address] [place] [address] Dr. Lazaro Sam AST [Catalytic activity/Vol] 22 U/L Normal 15-37 [facility] Comment on above: Performed By: #### C MP, TSH #### [facility] [address] [address] [address] Lazaro Sam Bilirubin [Mass/Vol] 0.6 mg/dL Normal 0.2-1.0 [facility] Comment on above: Performed By: #### C MP, TSH #### [facility] [address] [address] [address] Lazaro Sam Calcium [Mass/Vol] 8.8 mg/dL Normal 8.5-10.1 [facility] Comment on above: Performed By: #### C MP, TSH #### [facility] [address] [address] [address] Lazaro Sam Chloride [Moles/Vol] 104 mmol/L Normal 98-107 [facility] Comment on above: Performed By: #### C MP, TSH #### [facility] [address] [place] [address] Dr. Lazaro Sam CO2 [Moles/Vol] 26.5 mmol/L Normal 21.0-32.0 [facility] Comment on above: Performed By: #### C MP, TSH #### [facility] [address] [place] [address] Dr. Lazaro Sam Creatinine [Mass/Vol] 1.30 mg/dL Normal 0.70-1.30 [facility] Comment on above: Performed By: #### C MP, TSH #### [facility] [address] [place] [address] Dr. Lazaro Sam EGFR-AF [place] >60 Normal >=60 [facility] Comment on above: Performed By: #### C MP, TSH #### [facility] [address] [place] [address] Dr. Lazaro Sam EGFR-NON AF [place] 54 mL/min/1.73m2 Critically low >=60 [facility] Comment on above: Performed By: #### C MP, TSH #### [facility] [address] [place] [address] Dr. Lazaro Sam Globulin (S) [Mass/Vol] 3.9 g/dL Normal [facility] Comment on above: Performed By: #### C MP, TSH #### [facility] [address] [address] [address] Lazaro Sam Glucose [Mass/Vol] 117 mg/dL Critically high 74-106 [facility] Comment on above: Performed By: #### C MP, TSH #### [facility] [address] [address] [address] Lazaro Sam Potassium [Moles/Vol] 3.9 mmol/L Normal 3.5-5.1 [facility] Comment on above: Performed By: #### C MP, TSH #### [facility] [address] [place] [address] Dr. Lazaro Sam Protein [Mass/Vol] 7.6 g/dL Normal 6.4-8.2 [facility] Comment on above: Performed By: #### C MP, TSH #### [facility] [address] [place] [address] Dr. Lazaro Sam Sodium [Moles/Vol] 140 mmol/L Normal 136-145 [facility] Comment on above: Performed By: #### C MP, TSH #### [facility] [address] [place] [address] Dr. Lazaro Sam Urea nitrogen [Mass/Vol] 23.0 mg/dL Critically high 7.0-18.0 [facility] Comment on above: Performed By: #### C MP, TSH #### [facility] [address] [place] [address] Dr. Lazaro Sam Urea nitrogen/Creatinin e [Mass ratio] 17.7 mg/mg Normal [facility] Comment on above: Performed By: #### C MP, TSH #### [facility] [address] [place] [address] Dr. Lazaro Sam T4on 09-08-2021 T4 [Mass/Vol] 7.70 ug/dL Normal 4.50-12.10 [facility] Comment on above: Performed By: #### T 4 #### [facility] [address] [place] [address] Dr. Lazaro Sam TSHon 09-08-2021 TSH 1.079 uIU/mL Normal 0.358-3.740 [facility] Comment on above: Performed By: #### C MP, TSH #### [facility] [address] [place] [address] Dr. Lazaro Sam TSH RANGE SEE BELOW Normal [facility] Comment on above: Result Comment: <0.3 4 UIU/ml HYPERTHYROID 0.34-5.60 UIU/ml EUTHYROID >5.60 UIU/ml HYPOTHYROID Performed By: #### C MP, TSH #### [facility] [address] [place] [address] Dr. Lazaro Sam TESTOSTERONE, FREE,DIRECT, T OTALon 09-03-2021 Free Testosterone(Direc t) 9.4 pg/mL Normal 6.6-18.1 [facility] Comment on above: Result Comment: Perf ormed at: BN Performed By: #### T ESTFRD #### [facility] [address] [place] [address] Dr. Lazaro Sam Testosterone [Mass/Vol] 328 ng/dL Normal 264-916 [facility] Comment on above: Result Comment: Adul t male reference interval is based on a population of healthy nonobese males (BMI <30) between 19 and 39 years old. Abel et.al. JCEM 2017,102;2288-3326. PMID: [id number]. Performed at: CB Performed By: #### T ESTFRD #### [facility] [address] [place] [address] Dr. Lazaro GRIFFITHOVSPon 06-19-2018 CNOVS Visit (SP) Office ([facility]) LAMONT LOWERY ([id number]) 1945 M Date Time Provider Department 06/19/18 2:30 PM NARCISO MARINELLI HEMACL During your visit today, we recorded the following information about you: Temperature Pulse Respiration Blood pressure 98 degrees 74/minute 18/minute 186/97 Weight Height 93.6 kg 1.727 m Narciso Marinelli MD 06/19/2018 2:18 PM Signed HPI Lamont Lowery is a 72 year old male who presents in follow up. His hgb is better today down to normal. He backed his testosterone down to 50 mg weekly. I suspect his erythrocytosis is from testerone injections, especially since he backed his shot strength off and his hgb/hct has normalized. Hemoglobin (g/dL) Date Value 06/19/2018 16.8 Hematocrit (%) Date Value 06/19/2018 48.8 WBC (k/uL) Date Value 06/19/2018 8.91 Platelet Count (k/uL) Date Value 06/19/2018 152 Our work up is negative. It is reviewed below: BCR-ABL QUALITATIVE MULTIPLEX RT-PCR ? Date Ordered: ?05/30/2018 ? ? ? Date Reported: ?06/10/2018 Procedure Results and Interpretation BCR/ABL1 RT-PCR, QUALITATIVE Specimen type: Peripheral blood Result: ?BCR/ABL1 fusion transcripts are NOT DETECTED MYELOPROLIFERATIVE NEOPLASM PANEL BLOOD ? Date Ordered: ?05/30/2018 ? ? ? Date Reported: ?06/06/2018 Procedure Results and Interpretation Specimen type: Peripheral Blood Results: CALR ?No variant detected (Reference sequence: [id number]) JAK2 ?No variant detected (Reference sequence: [id number]) ? MPL - No variant detected (Reference sequence: [id number]) Results for LAMONT LOWERY ( ) as of 06/19/2018 14:15 Ref. 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 He has been on this since 1993. He has had erythrocytosis for some time now with his hemoglobin 19.4 hematocrit 58.5 back in 2014. In 2007 his hemoglobin was 18.9 with hematocrit of 56.5. More recently in April 2018 hemoglobin 19.4 with the normal up to 15.7 and hematocrit 59.2 with the normal up to 47.5. Current Outpatient Medications: lovastatin (MEVACOR) 10 mg tablet lovastatin 10 mg tablet Take 1 tablet every day by oral route. Omeprazole Magnesium (PRILOSEC OTC) 20 mg tablet Prilosec OTC 10mg QD testosterone cypionate (DEPO-TESTOSTERONE) 200 mg/mL injection testosterone cypionate 200 mg/mL intramuscular oil Tadalafil (CIALIS) 5 mg tablet Take 5 mg by mouth. CPAP RED YEAST RICE ORAL Take by mouth. VITAMIN A ORAL Take by mouth. cholecalciferol, vitamin D3, (VITAMIN D3 ORAL) Take by mouth. flaxseed oil (OMEGA 3 ORAL) Take by mouth. GARLIC OIL ORAL Take by mouth. Zinc 50 mg tab Take by mouth. lisinopril (ZESTRIL, PRINIVIL) 10 mg tablet Take 10 mg by mouth once daily. temazepam (RESTORIL) 30 mg cap Take by mouth at bedtime as needed. testosterone cypionate (DEPO-TESTOSTERONE) 100 mg/mL injection Inject intramuscularly one time only. timolol hemihydrate (BETIMOL) 0.25 % ophthalmic solution twice daily. No current facility-administered medications for this visit. ALLERGIES No Known Allergies REVIEW OF SYSTEMS GENERAL: No weight loss, malaise or fevers., SEE HPI HEENT: Negative for frequent or significant headaches, No changes in hearing or vision, no nose bleeds or other nasal problems NECK: Negative for lumps, goiter, pain and significant neck swelling RESPIRATORY: Negative for cough, wheezing or shortness of breath. CARDIOVASCULAR: Negative for chest pain, leg swelling or palpitations. GI: Negative for abdominal discomfort, blood in stools or black stools or change in bowel habits MUSCULOSKELETAL: Negative for joint pain or swelling, back pain or muscle pain. SKIN: Negative for lesions, rash, and itching. PSYCH: Negative for sleep disturbance, mood disorder and recent psychosocial stressors. HEMATOLOGY/LYMPHOLOGY: Negative for prolonged bleeding, bruising easily or swollen nodes. NEURO: No history of headaches, syncope, paralysis, seizures or tremors All other reviewed and negative other than HPI. PHYSICAL EXAM: BP 186/97 Pulse 74 Temp 36.7 ?C (98 ?F) (Oral) Resp 18 Ht 172.7 cm (5' 7.99 ) Wt 93.6 kg (206 lb 4.8 oz) SpO2 97% BMI 31.38 kg/m? General Appearance: alert and oriented, appearing in no acute distress Skin: skin color, texture, turgor normal, no suspicious rashes or lesions. Head: normal. Eyes: Anicteric sclera. Pupils are equally round. Extraocular movements are intact. . Ears: external ears normal Neck: Supple, no adenopathy; thyroid symmetric, normal size, no bruits. Back:no pain with ambulation Lungs: good air exchange overall Heart: RRR Abdomen: No obvious evidence of rebound tenderness or guarding Extremities: Extremities normal. No deformities, edema, or skin discoloration. Good capillary refill.. Musculoskeletal: Spine range of motion normal. Muscular strength intact. Peripheral Pulses: Normal. Neurologic: Gait normal. No gross cerebellar defects Psychiatric: the patient has an appropriate affect Hemoglobin (g/dL) Date Value 06/19/2018 16.8 Hematocrit (%) Date Value 06/19/2018 48.8 WBC (k/uL) Date Value 06/19/2018 8.91 Platelet Count (k/uL) Date Value 06/19/2018 152 ASSESSMENT/PLAN: 1. Erythrocytosis - ICD9: 289.0, ICD10: D75.1 He needs to be off testosterone. I discussed with him the likely cause of his erythrocytosis. Given that his hemoglobin and hematocrit normalized on the lower dose is good evidence that this is from testosterone. I will recommend checking a CBC once a month and see me in one year. The patient is hesitant about coming off of testosterone and wants to stay on 50 mg a week. - CBC + DIFF (FOR REMOTE [facility] USE) Narciso Marinelli MD Referring Provider: RUPERTO BLAS [[id number]] Allergies As of Date: 06/19/2018 (No Known Allergies) Date Reviewed: 06/19/2018 Reviewed by: Melvi Valle - Fully Assessed Reason for Visit: polycythemia [Other] Cmt: follow up Primary Visit Diagnosis:Erythrocytosi s [D75.1] Order(s):CBC + DIFF (FOR REMOTE [facility] USE) [SQRCBCDF] Order #: [id number] STANDING Disposition: Return in about 1 year (around 06/20/2019). Follow-up and Disposition History Recorded Prescriptions as of 06/19/2018 Sig: LOVASTATIN 10 MG TABLET lovastatin 10 mg tablet Viraj* OMEPRAZOLE MAGNESIUM 20 MG TA* Prilosec OTC 10mg QD TESTOSTERONE CYPIONATE 200 MG* testosterone cypionate 200 mg* TADALAFIL 5 MG TABLET Take 5 mg by mouth. CPAP RED YEAST RICE ORAL Take by mouth. VITAMIN A ORAL Take by mouth. VITAMIN D3 ORAL Take by mouth. OMEGA 3 ORAL Take by mouth. GARLIC OIL ORAL Take by mouth. ZINC 50 MG TABLET Take by mouth. LISINOPRIL 10 MG TABLET Take 10 mg by mouth once robyn* TEMAZEPAM 30 MG CAPSULE Take by mouth at bedtime as n* TESTOSTERONE CYPIONATE 100 MG* Inject intramuscularly one ti* TIMOLOL 0.25 % EYE DROPS twice daily. Problem List As Of Date 06/19/2018 Noted Resolved Erythrocytosis [D75.1] INVALID FOR* Encounter Status:Closed by NARCISO MARINELLI MD on 06/19/18 Normal [facility] PROGRESSon 06-19-2018 Protein mass conc HNO ID: [id number] Author: Narciso Marinelli Service: ? Author Type: Physician Type: Progress Notes Filed: 06/19/2018 2:18 PM Note Text: BARB Lamont Lowery is a 72 year old male who presents in follow up. His hgb is better today down to normal. He backed his testosterone down to 50 mg weekly. I suspect his erythrocytosis is from testerone injections, especially since he backed his shot strength off and his hgb/hct has normalized. Hemoglobin (g/dL) Date Value 06/19/2018 16.8 Hematocrit (%) Date Value 06/19/2018 48.8 WBC (k/uL) Date Value 06/19/2018 8.91 Platelet Count (k/uL) Date Value 06/19/2018 152 Our work up is negative. It is reviewed below: BCR-ABL QUALITATIVE MULTIPLEX RT-PCR ? Date Ordered: ?05/30/2018 ? ? ? Date Reported: ?06/10/2018 Procedure Results and Interpretation BCR/ABL1 RT-PCR, QUALITATIVE Specimen type: Peripheral blood Result: ?BCR/ABL1 fusion transcripts are NOT DETECTED MYELOPROLIFERATIVE NEOPLASM PANEL BLOOD ? Date Ordered: ?05/30/2018 ? ? ? Date Reported: ?06/06/2018 Procedure Results and Interpretation Specimen type: Peripheral Blood Results: CALR ?No variant detected (Reference sequence: [id number]) JAK2 ?No variant detected (Reference sequence: [id number]) ? MPL - No variant detected (Reference sequence: [id number]) Results for LAMONT LOWERY ( ) as of 06/19/2018 14:15 Ref. 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 He has been on this since 1993. He has had erythrocytosis for some time now with his hemoglobin 19.4 hematocrit 58.5 back in 2014. In 2007 his hemoglobin was 18.9 with hematocrit of 56.5. More recently in April 2018 hemoglobin 19.4 with the normal up to 15.7 and hematocrit 59.2 with the normal up to 47.5. Current Outpatient Medications: lovastatin (MEVACOR) 10 mg tablet lovastatin 10 mg tablet Take 1 tablet every day by oral route. Omeprazole Magnesium (PRILOSEC OTC) 20 mg tablet Prilosec OTC 10mg QD testosterone cypionate (DEPO-TESTOSTERONE) 200 mg/mL injection testosterone cypionate 200 mg/mL intramuscular oil Tadalafil (CIALIS) 5 mg tablet Take 5 mg by mouth. CPAP RED YEAST RICE ORAL Take by mouth. VITAMIN A ORAL Take by mouth. cholecalciferol, vitamin D3, (VITAMIN D3 ORAL) Take by mouth. flaxseed oil (OMEGA 3 ORAL) Take by mouth. GARLIC OIL ORAL Take by mouth. Zinc 50 mg tab Take by mouth. lisinopril (ZESTRIL, PRINIVIL) 10 mg tablet Take 10 mg by mouth once daily. temazepam (RESTORIL) 30 mg cap Take by mouth at bedtime as needed. testosterone cypionate (DEPO-TESTOSTERONE) 100 mg/mL injection Inject intramuscularly one time only. timolol hemihydrate (BETIMOL) 0.25 % ophthalmic solution twice daily. No current facility-administered medications for this visit. ALLERGIES No Known Allergies REVIEW OF SYSTEMS GENERAL: No weight loss, malaise or fevers., SEE HPI HEENT: Negative for frequent or significant headaches, No changes in hearing or vision, no nose bleeds or other nasal problems NECK: Negative for lumps, goiter, pain and significant neck swelling RESPIRATORY: Negative for cough, wheezing or shortness of breath. CARDIOVASCULAR: Negative for chest pain, leg swelling or palpitations. GI: Negative for abdominal discomfort, blood in stools or black stools or change in bowel habits MUSCULOSKELETAL: Negative for joint pain or swelling, back pain or muscle pain. SKIN: Negative for lesions, rash, and itching. PSYCH: Negative for sleep disturbance, mood disorder and recent psychosocial stressors. HEMATOLOGY/LYMPHOLOGY: Negative for prolonged bleeding, bruising easily or swollen nodes. NEURO: No history of headaches, syncope, paralysis, seizures or tremors All other reviewed and negative other than HPI. PHYSICAL EXAM: BP 186/97 Pulse 74 Temp 36.7 ?C (98 ?F) (Oral) Resp 18 Ht 172.7 cm (5' 7.99 ) Wt 93.6 kg (206 lb 4.8 oz) SpO2 97% BMI 31.38 kg/m? General Appearance: alert and oriented, appearing in no acute distress Skin: skin color, texture, turgor normal, no suspicious rashes or lesions. Head: normal. Eyes: Anicteric sclera. Pupils are equally round. Extraocular movements are intact. . Ears: external ears normal Neck: Supple, no adenopathy; thyroid symmetric, normal size, no bruits. Back:no pain with ambulation Lungs: good air exchange overall Heart: RRR Abdomen: No obvious evidence of rebound tenderness or guarding Extremities: Extremities normal. No deformities, edema, or skin discoloration. Good capillary refill.. Musculoskeletal: Spine range of motion normal. Muscular strength intact. Peripheral Pulses: Normal. Neurologic: Gait normal. No gross cerebellar defects Psychiatric: the patient has an appropriate affect Hemoglobin (g/dL) Date Value 06/19/2018 16.8 Hematocrit (%) Date Value 06/19/2018 48.8 WBC (k/uL) Date Value 06/19/2018 8.91 Platelet Count (k/uL) Date Value 06/19/2018 152 ASSESSMENT/PLAN: 1. Erythrocytosis - ICD9: 289.0, ICD10: D75.1 He needs to be off testosterone. I discussed with him the likely cause of his erythrocytosis. Given that his hemoglobin and hematocrit normalized on the lower dose is good evidence that this is from testosterone. I will recommend checking a CBC once a month and see me in one year. The patient is hesitant about coming off of testosterone and wants to stay on 50 mg a week. - CBC + DIFF (FOR REMOTE [facility] USE) Narciso Marinelli MD Normal [facility] Remote CBCDIF (for [facility] use o nly)on 06-19-2018 Abs Baso <0.03 Normal 0.00-0.10 [facility] Abs Meeker 1.02 k/uL High 0.00-0.86 [facility] Abs Neut 5.04 k/uL Normal 1.45-7.50 [facility] Basophils/100 WBC (Bld) 0.2 % Normal [facility] Eosinophils #/vol (Bld) 0.40 10*3/uL Normal 0.00-0.45 [facility] Eosinophils/100 WBC (Bld) 4.5 % Normal [facility] Erythrocyte distribution width Ratio (RBC) 13.3 % Normal 11.5-15.0 [facility] Hematocrit Volume Fraction (Bld) 48.8 % Normal 39.0-51.0 [facility] Hemoglobin mass conc (Bld) 16.8 g/dL Normal 13.0-17.0 [facility] Lymphocytes #/vol (Bld) 2.43 10*3/uL Normal 1.00-4.00 [facility] Lymphocytes/100 WBC (Bld) 27.3 % Normal [facility] MCH Entitic mass (RBC) 30.5 pG Normal 26.0-34.0 [facility] MCHC mass conc (RBC) 34.4 g/dL Normal 30.5-36.0 [facility] MCV Entitic volume (RBC) 88.6 fL Normal 80.0-100.0 [facility] Monocytes/100 WBC (Bld) 11.4 % Normal [facility] Neutrophils/100 WBC (Bld) 56.6 % Normal [facility] Platelet mean volume Entitic volume (Bld) 9.6 fL Normal 9.0-12.7 [facility] Platelets #/vol (Bld) 152 10*3/uL Normal 150-400 [facility] RBC #/vol (Bld) 5.51 10*6/uL Normal 4.20-6.00 [facility] WBC #/vol (Bld) 8.91 10*3/uL Normal 3.70-11.00 [facility] BCR-ABL Qualitativeon 2018 BCR-ABL Qualitative (NOTE) Normal [facility] Comment on above: Result Comment: Shannan vann refer to [facility] Surgical Pathology report, Performed By: #### C ALR, BCRQL #### [facility] [address], [place] [address] CALR Exon 9 Mutationon 05-29 CALR Result/Interp Duplicate request Normal [facility] Comment on above: Result Comment: Acco unt Credited SEE MPNP. DMCKNIGHT 05 30 2018 Performed By: #### C ALR, BCRQL #### [facility] [address] [place] [address] CALR Reviewed by Duplicate request Normal [facility] Comment on above: Result Comment: Acco unt Credited SEE MPNP. DMCKNIGHT 05 30 2018 Performed By: #### C ALR, BCRQL #### [facility] [address] [place] [address] CALR Specimen Type Duplicate request Normal [facility] Comment on above: Result Comment: Acco unt Credited SEE MPNP. DMCKNIGHT 05 30 2018 Performed By: #### C ALR, BCRQL #### [place] [address] CNCOon 05-29-2018 CNCO Letter Text Dear Lamont Lowery: How to activate your [facility] [employer] Account 1. Visit the [employer] Signup page at [email or web address] 2. Identify yourself using your one-time use activation code: [email or web address] 3. Follow the on-screen prompts to choose your own secure username and password The following information will be necessary to access your account for the first time: Information needed for sign-up: Your custom activation code used one-time only for the initial account set-up. Your date of The last 4 digits of your social security number What to do next: Fill in the requested information on the Identify Yourself Form at [email or web address] , click Next. Create your login and password, choose a [employer] ID and password that will be easy for you to use, but impossible for anyone else to guess. Pick a security question that will assist you in the event you forget your password the next time you log-on. If you have difficulty activating your account, please call our [employer] helpline at [phone] or toll free at . We hope you enjoy using [employer]! 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 He has been on this since 1993. He has had erythrocytosis for some time now with his hemoglobin 19.4 hematocrit 58.5 back in 2014. In 2007 his hemoglobin was 18.9 with hematocrit of 56.5. More recently in April 2018 hemoglobin 19.4 with the normal up to 15.7 and hematocrit 59.2 with the normal up to 47.5. He is presenting for evaluation. PAST MEDICAL HISTORY Diagnosis Date - Anxiety - Decreased testosterone level - Glaucoma - High blood hemoglobin F (HCC) ref. Dr. Schrader - Hypercholesterolemia - Sleep apnea PAST SURGICAL HISTORY Procedure Laterality Date - APPENDECTOMY HX - CARPAL TUNNEL - PAST SURGICAL HISTORY OF removed tonsils Social History Substance Use Topics - Smoking status: Never Smoker - Smokeless tobacco: Never Used - Alcohol use Yes Comment: occasionally FAMILY HISTORY Problem Relation Age of Onset - other (esophageal cancer) Mother - other (hypothyroidism) Mother - Parkinson?s Disease Father - other (smoker) Father - Breast Cancer Sister Current Outpatient Prescriptions: lovastatin (MEVACOR) 10 mg tablet lovastatin 10 mg tablet Take 1 tablet every day by oral route. Omeprazole Magnesium (PRILOSEC OTC) 20 mg tablet Prilosec OTC 10mg QD testosterone cypionate (DEPO-TESTOSTERONE) 200 mg/mL injection testosterone cypionate 200 mg/mL intramuscular oil Tadalafil (CIALIS) 5 mg tablet Take 5 mg by mouth. CPAP RED YEAST RICE ORAL Take by mouth. VITAMIN A ORAL Take by mouth. cholecalciferol, vitamin D3, (VITAMIN D3 ORAL) Take by mouth. flaxseed oil (OMEGA 3 ORAL) Take by mouth. GARLIC OIL ORAL Take by mouth. Zinc 50 mg tab Take by mouth. lisinopril (ZESTRIL, PRINIVIL) 10 mg tablet Take 10 mg by mouth once daily. temazepam (RESTORIL) 30 mg cap Take by mouth at bedtime as needed. testosterone cypionate (DEPO-TESTOSTERONE) 100 mg/mL injection Inject intramuscularly one time only. timolol hemihydrate (BETIMOL) 0.25 % ophthalmic solution twice daily. No current facility-administered medications for this visit. ALLERGIES No Known Allergies REVIEW OF SYSTEMS GENERAL: No weight loss, malaise or fevers., SEE HPI HEENT: Negative for frequent or significant headaches, No changes in hearing or vision, no nose bleeds or other nasal problems NECK: Negative for lumps, goiter, pain and significant neck swelling RESPIRATORY: Negative for cough, wheezing or shortness of breath. CARDIOVASCULAR: Negative for chest pain, leg swelling or palpitations. GI: Negative for abdominal discomfort, blood in stools or black stools or change in bowel habits MUSCULOSKELETAL: Negative for joint pain or swelling, back pain or muscle pain. SKIN: Negative for lesions, rash, and itching. PSYCH: Negative for sleep disturbance, mood disorder and recent psychosocial stressors. HEMATOLOGY/LYMPHOLOGY: Negative for prolonged bleeding, bruising easily or swollen nodes. NEURO: No history of headaches, syncope, paralysis, seizures or tremors All other reviewed and negative other than HPI. PHYSICAL EXAM: BP 192/89 Pulse 69 Temp 36.6 ?C (97.8 ?F) (Oral) Resp 16 Ht 172.7 cm (5' 8 ) Wt 91.8 kg (202 lb 4.8 oz) SpO2 97% BMI 30.76 kg/m? General Appearance: alert and oriented, appearing in no acute distress Skin: rubor like complexion Head: normal. Eyes: Anicteric sclera. Pupils are equally round. Extraocular movements are intact. . Ears: external ears normal Neck: Supple, no adenopathy; thyroid symmetric, normal size, no bruits. Back:no pain with ambulation Lungs: good air exchange overall Heart: RRR Abdomen: No obvious evidence of rebound tenderness or guarding No splenomegaly Extremities: Extremities normal. No deformities, edema, or skin discoloration. Good capillary refill.. Musculoskeletal: Spine range of motion normal. Muscular strength intact. Peripheral Pulses: Normal. Neurologic: Gait normal. No gross cerebellar defects Psychiatric: the patient has an appropriate affect Hemoglobin (g/dL) Date Value 05/29/2018 17.1 Hematocrit (%) Date Value 05/29/2018 49.6 WBC (k/uL) Date Value 05/29/2018 6.86 Platelet Count (k/uL) Date Value 05/29/2018 146 ASSESSMENT/PLAN: 1. 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 Will proceed with work up for myeloproliferative syndrome, check erythropoietin level. He talked about options and a lower dose testosterone could be in order or holding it altogether. If he is getting spikes in testosterone levels from the Depo shots then AndroGel low dose could be used with close attention to his hematocrit. The big danger of course is clotting, thrombosis, given that the biggest determinant of blood viscosity is hematocrit with the risk of DE, CVA, Budd Chiari, etc all increased proportionately to hematocrit. We will proceed with work up and see me in follow up. - LOVASTATIN 10 MG TABLET - OMEPRAZOLE MAGNESIUM 20 MG TABLET,DELAYED RELEASE - TESTOSTERONE CYPIONATE 200 MG/ML INTRAMUSCULAR OIL - TADALAFIL 5 MG TABLET - CPAP - RED YEAST RICE ORAL - VITAMIN A ORAL - VITAMIN D3 ORAL - OMEGA 3 ORAL - GARLIC OIL ORAL - ZINC 50 MG TABLET - JAK2 V617F MUTATION BLOOD - BCR-ABL QUALITATIVE MULTIPLEX RT-PCR - CALR EXON 9 MUTATION ANALYSIS BLOOD - MPL MUTATION ANALYSIS BLOOD - ABS GRAN CT + CBC (FOR REMOTE [facility] USE) - ERYTHROPOIETIN/EPO - HEPATIC FUNCTION PNL - TESTOSTERONE TOTAL 2. Erythrocytosis - ICD9: 289.0, ICD10: D75.1 See above - LOVASTATIN 10 MG TABLET - OMEPRAZOLE MAGNESIUM 20 MG TABLET,DELAYED RELEASE - TESTOSTERONE CYPIONATE 200 MG/ML INTRAMUSCULAR OIL - TADALAFIL 5 MG TABLET - CPAP - RED YEAST RICE ORAL - VITAMIN A ORAL - VITAMIN D3 ORAL - OMEGA 3 ORAL - GARLIC OIL ORAL - ZINC 50 MG TABLET - JAK2 V617F MUTATION BLOOD - BCR-ABL QUALITATIVE MULTIPLEX RT-PCR - CALR EXON 9 MUTATION ANALYSIS BLOOD - MPL MUTATION ANALYSIS BLOOD - ABS GRAN CT + CBC (FOR REMOTE [facility] USE) - ERYTHROPOIETIN/EPO - HEPATIC FUNCTION PNL - TESTOSTERONE TOTAL Narciso Marinelli MD Referring Provider: MURALI SCHRADER [[id number]] Allergies As of Date: 05/29/2018 (No Known Allergies) Date Reviewed: 05/29/2018 Reviewed by: Melvi Valle - Fully Assessed Reason for Visit: high HGB [Other] Cmt: new patient consultation ref. Dr. Schrader Primary Visit Diagnosis:Polycythemia [D75.1] Other Visit Diagnosis:Erythrocytosi s [D75.1] Order(s):JAK2 V617F MUTATION BLOOD [SQJAK2] Order #: [id number] FUTURE BCR-ABL QUALITATIVE MULTIPLEX RT-PCR [SQBCRQL] Order #: [id number] FUTURE CALR EXON 9 MUTATION ANALYSIS BLOOD [SQCALR] Order #: [id number] FUTURE MPL MUTATION ANALYSIS BLOOD [SQMPL] Order #: [id number] FUTURE ABS GRAN CT + CBC (FOR REMOTE [facility] USE) [SQRAGCBC] Order #: [id number] FUTURE ERYTHROPOIETIN/EPO [SQEPO] Order #: [id number] FUTURE HEPATIC FUNCTION PNL [SQHFP] Order #: [id number] FUTURE TESTOSTERONE TOTAL [SQTESTO] Order #: [id number] FUTURE Disposition: Return in about 3 weeks (around 06/19/2018). Follow-up and Disposition History Recorded Prescriptions as of 05/29/2018 Sig: LOVASTATIN 10 MG TABLET lovastatin 10 mg tablet Viraj* OMEPRAZOLE MAGNESIUM 20 MG TA* Prilosec OTC 10mg QD TESTOSTERONE CYPIONATE 200 MG* testosterone cypionate 200 mg* TADALAFIL 5 MG TABLET Take 5 mg by mouth. CPAP RED YEAST RICE ORAL Take by mouth. VITAMIN A ORAL Take by mouth. VITAMIN D3 ORAL Take by mouth. OMEGA 3 ORAL Take by mouth. GARLIC OIL ORAL Take by mouth. ZINC 50 MG TABLET Take by mouth. LISINOPRIL 10 MG TABLET Take 10 mg by mouth once robyn* TEMAZEPAM 30 MG CAPSULE Take by mouth at bedtime as n* TESTOSTERONE CYPIONATE 100 MG* Inject intramuscularly one ti* TIMOLOL 0.25 % EYE DROPS twice daily. Problem List As Of Date 05/29/2018 Noted Resolved Erythrocytosis [D75.1] INVALID FOR* Encounter Status:Closed by NARCISO MARINELLI MD on 05/29/18 Normal [facility] EPOon 05-29-2018 EPO 8.8 mIU/mL Normal 2.6-18.5 [facility] Comment on above: Result Comment: Test analyzed by the [employer] DxI method. Performed By: #### Lucille AK2, EPO, HFP #### [facility] [address] [address] Hepatic Functn Panelon 05-29 Albumin mass conc 4.6 g/dL Normal 3.9-4.9 [facility] Comment on above: Performed By: #### Lucille AKLesvia, EPO, HFP #### [facility] [address], [place] [id number] ALP enzyme act/vol 60 U/L Normal 38-113 [facility] Comment on above: Performed By: #### Lucille AK2, EPO, HFP #### [facility] [address], [place] [id number] ALT enzyme act/vol 36 U/L Normal 10-54 [facility] Comment on above: Performed By: #### Lucille AK2, EPO, HFP #### [facility] [address], [place] [address] AST enzyme act/vol 29 U/L Normal 14-40 [facility] Comment on above: Performed By: #### Lucille AK2, EPO, HFP #### [facility] [address], [place] [address] Bilirubin mass conc 0.5 mg/dL Normal 0.2-1.3 [facility] Comment on above: Performed By: #### J AK2, EPO, HFP #### [facility] [employer] [address] [place] [address] Bilirubin,Conjugat ed <0.2 Normal <0.2 [facility] Comment on above: Performed By: #### J AK2, EPO, HFP #### [place] [address] [place] [phone] Protein mass conc 7.6 g/dL Normal 6.3-8.0 [facility] Comment on above: Performed By: #### J AK2, EPO, HFP #### [place] [address] [place] [phone] JAK2 V617F Mutationon 2018 JAK2 V617F Interp Duplicate request Normal [facility] Comment on above: Result Comment: Acco unt Credited SEE MPNP. 2018 Performed By: #### J AK2, EPO, HFP #### [place] [address] [place] [phone] JAK2 V617F Spec Type Duplicate request Normal [facility] Comment on above: Result Comment: Acco unt Credited SEE MPNP. 2018 Performed By: #### J AK2, EPO, HFP #### [place] [id number] [place] [phone] Molecular Path Rev Duplicate request Normal [facility] Comment on above: Result Comment: Acco unt Credited SEE MPNP. 2018 Performed By: #### J AK2, EPO, HFP #### [facility] [address] [phone] MPL Mutationon 05-29-2018 MPL Mutation Interp Duplicate request Normal [facility] Comment on above: Result Comment: Acco unt Credited SEE MPNP. 2018 Performed By: #### M PL #### [place] [address] [id number] [place] [phone] Myeloprolif Neopl Pnl Bloodo n 05-29-2018 Myelo Neopl Pnl Bld (NOTE) Normal [facility] Comment on above: Result Comment: Shannan vann refer to [facility] Surgical Pathology report, . 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 He has been on this since 1993. He has had erythrocytosis for some time now with his hemoglobin 19.4 hematocrit 58.5 back in 2014. In 2007 his hemoglobin was 18.9 with hematocrit of 56.5. More recently in April 2018 hemoglobin 19.4 with the normal up to 15.7 and hematocrit 59.2 with the normal up to 47.5. He is presenting for evaluation. PAST MEDICAL HISTORY Diagnosis Date - Anxiety - Decreased testosterone level - Glaucoma - High blood hemoglobin F (HCC) ref. Dr. Schrader - Hypercholesterolemia - Sleep apnea PAST SURGICAL HISTORY Procedure Laterality Date - APPENDECTOMY HX - CARPAL TUNNEL - PAST SURGICAL HISTORY OF removed tonsils Social History Substance Use Topics - Smoking status: Never Smoker - Smokeless tobacco: Never Used - Alcohol use Yes Comment: occasionally FAMILY HISTORY Problem Relation Age of Onset - other (esophageal cancer) Mother - other (hypothyroidism) Mother - Parkinson?s Disease Father - other (smoker) Father - Breast Cancer Sister Current Outpatient Prescriptions: lovastatin (MEVACOR) 10 mg tablet lovastatin 10 mg tablet Take 1 tablet every day by oral route. Omeprazole Magnesium (PRILOSEC OTC) 20 mg tablet Prilosec OTC 10mg QD testosterone cypionate (DEPO-TESTOSTERONE) 200 mg/mL injection testosterone cypionate 200 mg/mL intramuscular oil Tadalafil (CIALIS) 5 mg tablet Take 5 mg by mouth. CPAP RED YEAST RICE ORAL Take by mouth. VITAMIN A ORAL Take by mouth. cholecalciferol, vitamin D3, (VITAMIN D3 ORAL) Take by mouth. flaxseed oil (OMEGA 3 ORAL) Take by mouth. GARLIC OIL ORAL Take by mouth. Zinc 50 mg tab Take by mouth. lisinopril (ZESTRIL, PRINIVIL) 10 mg tablet Take 10 mg by mouth once daily. temazepam (RESTORIL) 30 mg cap Take by mouth at bedtime as needed. testosterone cypionate (DEPO-TESTOSTERONE) 100 mg/mL injection Inject intramuscularly one time only. timolol hemihydrate (BETIMOL) 0.25 % ophthalmic solution twice daily. No current facility-administered medications for this visit. ALLERGIES No Known Allergies REVIEW OF SYSTEMS GENERAL: No weight loss, malaise or fevers., SEE HPI HEENT: Negative for frequent or significant headaches, No changes in hearing or vision, no nose bleeds or other nasal problems NECK: Negative for lumps, goiter, pain and significant neck swelling RESPIRATORY: Negative for cough, wheezing or shortness of breath. CARDIOVASCULAR: Negative for chest pain, leg swelling or palpitations. GI: Negative for abdominal discomfort, blood in stools or black stools or change in bowel habits MUSCULOSKELETAL: Negative for joint pain or swelling, back pain or muscle pain. SKIN: Negative for lesions, rash, and itching. PSYCH: Negative for sleep disturbance, mood disorder and recent psychosocial stressors. HEMATOLOGY/LYMPHOLOGY: Negative for prolonged bleeding, bruising easily or swollen nodes. NEURO: No history of headaches, syncope, paralysis, seizures or tremors All other reviewed and negative other than HPI. PHYSICAL EXAM: BP 192/89 Pulse 69 Temp 36.6 ?C (97.8 ?F) (Oral) Resp 16 Ht 172.7 cm (5' 8 ) Wt 91.8 kg (202 lb 4.8 oz) SpO2 97% BMI 30.76 kg/m? General Appearance: alert and oriented, appearing in no acute distress Skin: rubor like complexion Head: normal. Eyes: Anicteric sclera. Pupils are equally round. Extraocular movements are intact. . Ears: external ears normal Neck: Supple, no adenopathy; thyroid symmetric, normal size, no bruits. Back:no pain with ambulation Lungs: good air exchange overall Heart: RRR Abdomen: No obvious evidence of rebound tenderness or guarding No splenomegaly Extremities: Extremities normal. No deformities, edema, or skin discoloration. Good capillary refill.. Musculoskeletal: Spine range of motion normal. Muscular strength intact. Peripheral Pulses: Normal. Neurologic: Gait normal. No gross cerebellar defects Psychiatric: the patient has an appropriate affect Hemoglobin (g/dL) Date Value 05/29/2018 17.1 Hematocrit (%) Date Value 05/29/2018 49.6 WBC (k/uL) Date Value 05/29/2018 6.86 Platelet Count (k/uL) Date Value 05/29/2018 146 ASSESSMENT/PLAN: 1. 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 Will proceed with work up for myeloproliferative syndrome, check erythropoietin level. He talked about options and a lower dose testosterone could be in order or holding it altogether. If he is getting spikes in testosterone levels from the Depo shots then AndroGel low dose could be used with close attention to his hematocrit. The big danger of course is clotting, thrombosis, given that the biggest determinant of blood viscosity is hematocrit with the risk of DE, CVA, Budd Chiari, etc all increased proportionately to hematocrit. We will proceed with work up and see me in follow up. - LOVASTATIN 10 MG TABLET - OMEPRAZOLE MAGNESIUM 20 MG TABLET,DELAYED RELEASE - TESTOSTERONE CYPIONATE 200 MG/ML INTRAMUSCULAR OIL - TADALAFIL 5 MG TABLET - CPAP - RED YEAST RICE ORAL - VITAMIN A ORAL - VITAMIN D3 ORAL - OMEGA 3 ORAL - GARLIC OIL ORAL - ZINC 50 MG TABLET - JAK2 V617F MUTATION BLOOD - BCR-ABL QUALITATIVE MULTIPLEX RT-PCR - CALR EXON 9 MUTATION ANALYSIS BLOOD - MPL MUTATION ANALYSIS BLOOD - ABS GRAN CT + CBC (FOR REMOTE C USE) - ERYTHROPOIETIN/EPO - HEPATIC FUNCTION PNL - TESTOSTERONE TOTAL 2. Erythrocytosis - ICD9: 289.0, ICD10: D75.1 See above - LOVASTATIN 10 MG TABLET - OMEPRAZOLE MAGNESIUM 20 MG TABLET,DELAYED RELEASE - TESTOSTERONE CYPIONATE 200 MG/ML INTRAMUSCULAR OIL - TADALAFIL 5 MG TABLET - CPAP - RED YEAST RICE ORAL - VITAMIN A ORAL - VITAMIN D3 ORAL - OMEGA 3 ORAL - GARLIC OIL ORAL - ZINC 50 MG TABLET - JAK2 V617F MUTATION BLOOD - BCR-ABL QUALITATIVE MULTIPLEX RT-PCR - CALR EXON 9 MUTATION ANALYSIS BLOOD - MPL MUTATION ANALYSIS BLOOD - ABS GRAN CT + CBC (FOR REMOTE [facility] USE) - ERYTHROPOIETIN/EPO - HEPATIC FUNCTION PNL - TESTOSTERONE TOTAL Narciso Marinelli MD Normal [facility] Remote Abs Gran + CBC (for [facility] use only)on 05-29-2018 Absol Gran Count 3.85 k/uL Normal 1.45-7.50 [facility] Erythrocyte distribution width Ratio (RBC) 13.6 % Normal 11.5-15.0 [facility] Hematocrit Volume Fraction (Bld) 49.6 % Normal 39.0-51.0 [facility] Hemoglobin mass conc (Bld) 17.1 g/dL High 13.0-17.0 [facility] MCH Entitic mass (RBC) 30.5 pG Normal 26.0-34.0 [facility] MCHC mass conc (RBC) 34.5 g/dL Normal 30.5-36.0 [facility] MCV Entitic volume (RBC) 88.6 fL Normal 80.0-100.0 [facility] Platelet mean volume Entitic volume (Bld) 9.9 fL Normal 9.0-12.7 [facility] Platelets #/vol (Bld) 146 10*3/uL Low 150-400 [facility] RBC #/vol (Bld) 5.60 10*6/uL Normal 4.20-6.00 [facility] WBC #/vol (Bld) 6.86 10*3/uL Normal 3.70-11.00 [facility] SURGICAL PATHOLOGYon 019 SURGICAL PATHOLOGY PROCEDURE REPORT Specimen originated from [facility] Specimen #: [id number] Submitting Physician: NARCISO MARINELLI MD SPECIMEN SUBMITTED A: PERIPHERAL BLOOD PROCEDURE(S) BCR-ABL QUALITATIVE MULTIPLEX RT-PCR Date Ordered: 05/30/2018 Date Reported: 06/10/2018 Procedure Results and Interpretation BCR/ABL1 RT-PCR, QUALITATIVE Specimen type: Peripheral blood Result: BCR/ABL1 fusion transcripts are NOT DETECTED Interpretation: RT-PCR studies are negative for BCR/ABL1 fusion transcripts. For more sensitive residual disease detection in patients with a history of BCR/ABL1 positive chronic myeloid leukemia or acute lymphoblastic leukemia, please order BCR/ABL1 p210 RT-PCR, Quantiative or BCR/ABL1 p190 RT-PCR, Quantitative. Methodology: RNA was purified from this sample, and cDNA prepared by reverse air compressor engineer. Multiplex RT-PCR studies were performed using fluorescently labeled primers for BCR/ABL1 fusion transcripts including p210 (e13a2, e14a2, e13a3, e14a3), p190 (e1a2, e1a3), p230 (e19a2) and e6a2 isoforms. As an amplification control, primers for wild-type BCR are also included. PCR products are analyzed by capillary electrophoresis. The limit of detection of this assay is approximately 1% BCR/ABL1 normalized copy numbers (BCRABL1/ABL1). This test was developed and its performance characteristics determined by [facility]'s [facility] [place] ([facility]). It has not been cleared or approved by the FDA. -[facility] is regulated under CLIA as qualified to perform high-complexity testing. This test is used for clinical purposes. It should not be regarded as investigational or for research. As Reviewed by: Narciso Luong M.D., Ph. D. [facility]/cp 06/10/2018 Procedure Pathologist: Narciso Luong M.D. Electronic Signature MYELOPROLIFERATIVE NEOPLASM PANEL BLOOD Date Ordered: 05/30/2018 Date Reported: 06/06/2018 Procedure Results and Interpretation Specimen type: Peripheral Blood Results: CALR No variant detected (Reference sequence: [id number]) JAK2 No variant detected (Reference sequence: [id number]) MPL - No variant detected (Reference sequence: [id number]) Interpretation: No variants were identified in CALR exon 9, JAK2 exons 12-16 or MPL exons 10 and 11. This result does not exclude the possibility of a myeloproliferative neoplasm. If clinically indicated, additional testing for a broader panel of myeloid neoplasm-associated mutations (i.e., Hematologic Neoplasms NGS panel) may be helpful to further assess for clonal hematopoiesis. Methodology: Genomic DNA extracted from blood or bone marrow was subject to an amplicon based method to enrich for CALR exon 9, JAK2 exons 12-16 and MPL exons 10 and 11, including the flanking canonical splicing sites. Pair-end DNA sequencing was performed on the Illumina instrument ([place], [place]). A customized bioinformatic pipeline was used to align the sequencing reads to the reference human genome (GRCh37/hg19). Benign common polymorphisms are not reported. Limitations: Sequence changes outside the analyzed regions, including intronic, noncoding, and splice-site variants, will not be identified by this test. The lower limit of detection of this assay is approximately 1% allele proportion for the JAK2 [id number] single nucleotide variant and approximately 5% allele proportion for other variants. Variants below 5% allele proportion may be reported at the discretion of the molecular pathology professional staff if the technical quality of the sequencing is sufficient at that location and the call is unequivocal. Common germline polymorphisms are considered to represent wild type sequence and are not included in this report. The presence of nucleotide polymorphisms or variants at the annealing sites of the primers used in amplification and sequencing may cause allele drop-outs, hence a false negative result is possible. This test was developed and its performance characteristics determined by [facility]'s [facility] [place] ([facility]). It has not been cleared or approved by the FDA. [facility] is regulated under CLIA as qualified to perform high-complexity testing. This test is used for clinical purposes. It should not be regarded as investigational or for research. As Reviewed by: Quin Hill M.D. Ph.D. [facility]K/ap [id number] References: Temi DA, Syd A, Joshua R, Payal J, Borowitz MJ, Johanna Rashid MM, et al. The 2016 revision to the World Health Organization (WHO) classification of myeloid neoplasms and acute leukemia. Blood 2016;127: 2391-405. NCCN Guidelines, Myeloproliferative Neoplasms, Version 2.2018. Patricio K, Leobardo DELUCA. Genomics of Myeloproliferative Neoplasms. J Clin Oncol. 2017 Jun 18;35(9):947-954. Procedure Pathologist: Quin Hill M.D. Electronic Signature CLINICAL DATA None provided. Date of Report: Date of Procedure: 05/29/2018 Date of Receipt: 05/30/2018 Submitted: NARCISO MARINELLI MD Location: [facility] Diagnostic interpretation performed at [facility], [address] [place] [address]. Normal [facility] Testosteroneon 05-29-2018 Testosterone mass conc 249 ng/dL Normal 193-824 [facility] Comment on above: Result Comment: A te stosterone level in the 193-320 ng/dL range with associated clinical symptoms is considered low and may indicate hypogonadism (from NEJM 2010 363:123-135). Results >320 ng/dL are considered normal. Performed By: #### T ESTO ####[facility] [address] [place], [place] [phone] Vital Signs Date Time Vital Sign Value Performing Clinician Facility 03-19-2023 12:05-0500 Body height 172.72 cm Myrna Isbell Other [facility] Other 03-19-2023 12:05-0500 Body mass index (BMI) [Ratio] 30.62 kg/m2 Myrna Isbell Other [facility] Other 03-19-2023 12:05-0500 Body temperature 98.9 [degF] Myrna Isbell Other [facility] Other 03-19-2023 12:05-0500 Body weight 91.36 kg Myrna Isbell Other [facility] Other 03-19-2023 12:05-0500 Diastolic blood pressure 104 mm[Hg] Myrna Isbell Other [facility] Other 03-19-2023 12:05-0500 Respiratory rate 18 /min Myrna Isbell Other [facility] Other 03-19-2023 12:05-0500 SaO2% (BldA) [Mass fraction] 96 % Myrna Isbell Other [facility] Other 03-19-2023 12:05-0500 Systolic blood pressure 178 mm[Hg] Myrna Isbell Other [facility] Other 03-14-2023 13:10-0500 Body height 172.72 cm Magnolia Igor Other [facility] Other 03-14-2023 13:10-0500 Body mass index (BMI) [Ratio] 30.41 kg/m2 Magnolia Igor Other [facility] Other 03-14-2023 13:10-0500 Body temperature 100.1 [degF] [facility] I[facility] Other [facility] Other 03-14-2023 13:10-0500 Body weight 90.72 kg Magnolia Igor Other [facility] Other 03-14-2023 13:10-0500 Diastolic blood pressure 87 mm[Hg] Magnolia Igor Other [facility] Other 03-14-2023 13:10-0500 Respiratory rate 18 /min Magnolia Igor Other [facility] Other 03-14-2023 13:10-0500 SaO2% (BldA) [Mass fraction] 96 % Magnolia Igor Other [facility] Other 03-14-2023 13:10-0500 Systolic blood pressure 190 mm[Hg] Magnolia Igor Other [facility] Other 10-17-2022 13:35-0400 Blood Pressure Location EWA VIERA [facility] 10-17-2022 13:35-0400 Diastolic blood pressure 112 mm[Hg] EWA VIERA [facility] 10-17-2022 13:35-0400 Heart rate 81 /min EWA VIERA [facility] 10-17-2022 13:35-0400 Systolic blood pressure 172 mm[Hg] EWA VIERA [facility] 04-16-2022 14:37-0500 Blood Pressure Location Murali [employer] [facility] 10-16-2021 14:30-0400 Blood Pressure Location [employer]urali [employer] [facility] [place] 10-16-2021 14:30-0400 Diastolic blood pressure 85 mm[Hg] [employer] [facility] [place] 10-16-2021 14:30-0400 Heart rate 67 /min [employer] [facility] [place] 10-16-2021 14:30-0400 Respiratory rate 16 /min [email or web address] [email or web address] [facility] [place] [employer] 10-16-2021 14:30-0400 Systolic blood pressure 170 mm[Hg] [email or web address] [email or web address] [facility] [place] [employer] Encounters Encounter Date Encounter Type Care Provider Facility Start: 03-19-2023 End: 03-19-2023 ambulatory Myrna Isbell Other [facility] Other Start: 03-19-2023 Office outpatient vi sit 15 minutes Myrna Isbell [facility] Start: 03-15-2023 End: 03-15-2023 ambulatory Magnolia Igor Other [facility] Other Start: 03-15-2023 Telephone encounter Magnolia Igor [facility] Start: 03-14-2023 End: 03-14-2023 ambulatory Magnolia Igor Other [facility] Other Start: 03-14-2023 Office outpatient vi sit 15 minutes Magnolia Igor [facility] Start: 10-17-2022 End: 10-18-2022 ambulatory PAMillicent VIERA [place] Start: 10-17-2022 End: 10-18-2022 ambulatory DARRION VIERA Facility:[facility] Start: 10-17-2022 End: 10-17-2022 Patient encounter procedure EWA VIERA [facility] Start: 10-15-2022 ambulatory Murali SCHRADER Facility: [facility] Start: 05-24-2022 End: 05-25-[address] FREDERICK GONZALEZ Facility:[facility] Start: 04-16-2022 End: 04-17-2022 ambulatory Murali SCHRADER Facility:[facility] [place] Start: 04-16-2022 End: 04-16-2022 Patient encounter procedure Murali SCHRADER [facility] [place] Start: 01-26-2022 End: 01-27-[address] MURALI SCHRADER Facility:[facility] Start: 10-16-2021 End: 10-16-2021 Patient encounter procedure Murali SCHRADER [facility] [place] Start: 09-08-2021 End: 09-09-[address] FREDERICK GONZALEZ Facility:[facility] Start: 09-01-2021 End: 09-02-[address] FREDERICK GONZALEZ Facility:[facility] Start: 06-19-2018 End: 06-20-2018 Patient encounter procedure NARCISO MARINELLI [facility] Start: 05-29-2018 End: 05-30-2018 Patient encounter procedure NARCISO MARINELLI [facility] Procedures Date Procedure Procedure Detail Performing Clinician Start: 09-01-[address] ROBIN GONZALEZ Comment on above: Performed By: #### P SAD #### [facility] [address] [place] [address] Dr. Lazaro Sam Appendectomy [employer] Decompression of med trev nerve [employer] Plan of Treatment Date Care Activity Detail Author Start: 10-23-2023 ambulatory Ambulatory Facility:[facility] Immunizations Immunization Date Immunization Notes Care Provider Fa cility 03-16-2021 SARS-CoV-2 (COVID-19 ) mRNA BNT-162b2 vax [facility] Comment on above: Result Comment: 2022: [id number] 03-01-2021 SARS-CoV-2 (COVID-19 ) mRNA BNT-162b2 vax Dakim [facility] 06-29-2020 SARS-CoV-2 (COVID-19 ) mRNA BNT-162b2 vax [employer] [facility] 06-24-2020 SARS-CoV-2 (COVID-19 ) mRNA-1273 vaccine [employer] [facility] 06-08-2020 SARS-CoV-2 (COVID-19 ) mRNA BNT-162b2 vax Dakim [facility] 06-03-2020 SARS-CoV-2 (COVID-19 ) mRNA-1273 vaccine [employer] [facility] 04-10-2018 tetanus toxoid, redu maurisio diphtheria toxoid, and acellular pertussis vaccine, adsorbed [facility]urali [email or web address] [facility] Payers Date Payer Category Payer Medicare [id number] 1957 Medicare [id number] 1957 Unknown [id number] 1945 Unknown [id number] 2.16.84 [id number] 1945 Unknown [id number] 2.16.84 [id number] 1945 Unknown [id number] 2.16.84 [id number] 1945 Unknown [id number] 2.16.84 [id number] 1945 Unknown [id number] 2.16.8 [id number] 1945 Unknown [id number] 2.16.8 [id number] 1947 Unknown [id number] 2.16.8 [id number] 1945 Unknown [id number] 2.16.8 [id number] 1945 Unknown [id number] 2.16.8 [id number] Unknown [id number] 2.16.84 [id number] Social History Date Type Detail Facility Start: 04-17-2021 End: 10-17-2022 Tobacco smoking status Never smoked tobacco (finding) [facility] Tobacco smoking status Never [facility] [employer] Sex Assigned At Male [facility] [employer] Functional Status Date Assessment Result Facility 10-17-2022 Functional Status N/A [facility] 04-16-2022 Functional Status N/A [facility] 10-16-2021 Functional Status N/A [facility] [employer] Clinical Notes 10-16-2021 to 03-19-2023 Note Date & Type Note Facility 03-19-2023 Evaluation note Encounter Date Diagnosis Assessment Notes Mar, Acute non-recurrent pansinusitis (ICD-10 - J01.40) Will tx tody for bacterial sinusitis based on physical exam and duration of symptoms. Previously on z-pack, will switch to Augmentin. Take antibiotic as prescribed, complete entire course of therapy even if symptoms resolve. Encouraged Mucinex. Supportive care as directed, push fluids and rest, Tylenol/Motrin as directed for aches/fever, warm moist compress over sinuses several times a day, cool mist humidifier, nasal saline spray as directed. Symptoms should improve in the next 3 days, if symptoms persist follow up with PCP. Immediate eval for warning s/sx as discussed. Patient verbalizes understanding and is agreeable to treatment plan. Mar, Elevated blood pressure reading (ICD-10 - R03.0) Discussed elevated BP. known hx of HTN. Is waiting to be seen by new PCP this month. He does monitor at home and earlier today 120s/80s, he reports white coat syndrome. [facility] Other 12-14-2023 Evaluation note* Encounter Date Diagnosis Assessment Notes Treatment Notes Treatment Clinical Notes Mar, Sore throat (ICD-10 - J02.9) Mar, Acute viral pharyngitis (ICD-10 - J02.9) Patient is a 77 yo male who presents to urgent care with complaints of fever, chills, sore throat, congestion, post nasal drip and ear pain for the past seeral days. He denies chest pain, shoretness of breath, or difficulty breathing. DDX includes strep., covid, flu, viral URI, viral pharyngitis. Patient tested negative for covid, strep and flu. Exam is consistent with a viral UIR, viral sore throat. He is being diagnosed with viral pharyngitis. He has been educated to rest. Take tylenol as needed for fever, sore throat. Drink plenty of water/fluids. garle with warm salt water as needed. May use over the counter throat chloraseptic spray as needed. Follow up with primary care provider if symptoms persist. Go to the ER if shortness of breath, chest pain occur. Mar, Contact with and (suspected) exposure to covid-19 (ICD-10 - Z20.822) [facility] Other 07-19-2023 Hospital Discharge instructions Patient Education 10/17/2022 14:52:18 Hypogonadism, Male Hypogonadism, Male Male hypogonadism is a condition of having a level of testosterone that is lower than normal. Testosterone is a chemical, or hormone, that is made mainly in the testicles. In boys, testosterone is responsible for the development of male characteristics during puberty. These include: Making the penis bigger. Growing and building the muscles. Growing facial hair. Deepening the voice. In adult men, testosterone is responsible for maintaining: An interest in sex and the ability to have sex. Muscle mass. Sperm production. Red blood cell production. Bone strength. Testosterone also gives men energy and a sense of well-being. Testosterone normally decreases as men age and the testicles make less testosterone. Testosterone levels can vary from man to man. Not all men will have signs and symptoms of low testosterone. Weight, alcohol use, medicines, and certain medical conditions can affect a man's testosterone level. What are the causes? This condition is caused by: A natural decrease in testosterone that occurs as a man grows older. This is the main cause of thiscondition. Use of medicines, such as antidepressants, steroids, and opioids. Diseases and conditions that affect the testicles or the making of testosterone. These include: ?Injury or damage to the testicles from trauma, cancer, cancer treatment, or infection. ?Diabetes. ?Sleep apnea. ?Genetic conditions that men are born with. ?Disease of the pituitary gland. This gland is in the brain. It produces hormones. ?Obesity. ?Metabolic syndrome. This is a group of diseases that affect blood pressure, blood sugar, cholesterol, and belly fat. ?HIV or AIDS. ?Alcohol abuse. ?Kidney failure. ?Other long-term or chronic diseases. What are the signs or symptoms? Common symptoms of this condition include: Loss of interest in sex (low sex drive). Inability to have or maintain an erection (erectile dysfunction). Feeling tired (fatigue). Mood changes, like irritability or depression. Loss of muscle and body hair. Infertility. Large breasts. Weight gain (obesity). How is this diagnosed? Your health care provider can diagnose hypogonadism based on: Your signs and symptoms. A physical exam to check your testosterone levels. This includes blood tests. Testosterone levels can change throughout the day. Levels are highest in the morning. You may need to have repeat blood tests before getting a diagnosis of hypogonadism. Depending on your medical history and test results, your health care provider may also do other tests to find the cause of low testosterone. How is this treated? This condition is treated with testosterone replacement therapy. Testosterone can be given by: Injection or through pellets inserted under the skin. Gels or patches placed on the skin or in the mouth. Testosterone therapy is not for everyone. It has risks and side effects. Your health care provider will consider your medical history, your risk for prostate cancer, your age, and your symptoms before putting you on testosterone replacement therapy. Follow these instructions at home: Take vbsx-stq-niqyvjj and prescription medicines only as told by your health care provider. Eat foods that are high in fiber, such as beans, whole grains, and fresh fruits and vegetables. Limit foods that are high in fat and processed sugars, such as fried or sweet foods. If you drink alcohol: ?Limit how much you have to 0 2 drinks a day. ?Know how much alcohol is in your drink. In the [place] one drink equals one 12 oz bottle of beer (355 mL), one 5 oz glass of wine (148 mL), or one 1 oz glass of hard liquor (44 mL). Return to your normal activities as told by your health care provider. Ask your health care provider what activities are safe for you. Keep all follow-up visits. This is important. Contact a health care provider if: You have any of the signs or symptoms of low testosterone. You have any side effects from testosterone therapy. Summary Male hypogonadism is a condition of having a level of testosterone that is lower than normal. The natural drop in testosterone production that occurs with age is the most common cause of this condition. Low testosterone can also be caused by many diseases and conditions that affect the testicles and the making of testosterone. This condition is treated with testosterone replacement therapy. There are risks and side effects of testosterone therapy. Your health care provider will consider your age, medical history, symptoms, and risks for prostate cancer before putting you on testosteronetherapy. This information is not intended to replace advice given to you by your health care provider. Make sure you discuss any questions you have with your health care provider. Document Revised: 11/17/2020 Document Reviewed: 11/17/2020 [employer] Patient Education 2022 [employer]. Follow Up Care 08/31/2022 12:38:12 With:EWA VIERA PA-C, URL Address: [address] [place], [place] [address] [address] When: Unknown [facility] 01-16-2023 Hospital Discharge instructions Patient Education 04/16/2022 15:28:45 Testicular Self-Exam Testicular Self-Exam A self-examination of your testicles (testicular self-exam) involves looking at and feeling your testicles for abnormal lumps or swelling. Several things can cause swelling, lumps, or pain in your testicles. Some of these causes are: Injuries. Inflammation. Infection. Buildup of fluids around your testicle (hydrocele). Twisted testicles (testicular torsion). Testicular cancer. Why is it important to do a testicular self-exam? Self-examination of the testicles and the left and right groin areas may be recommended if you are at risk for testicular cancer. Your groin is where your lower abdomen meets your upper thighs. You may be at risk for testicular cancer if you have: An undescended testicle (cryptorchidism). A history of previous testicular cancer. A family history of testicular cancer. How to do a testicular self-exam The testicles are easiest to examine after a warm bath or shower. They are more difficult to examine when you are cold. This is because the muscles attached to the testicles retract and pull them up higher or into the abdomen. A normal testicle is egg-shaped and feels firm. It is smooth and not tender. The spermatic cord canbe felt as a firm, spaghetti-like cord at the back of your testicle. Look and feel for changes Stand and hold your penis away from your body. Look at each testicle to check for lumps or swelling. Roll each testicle between your thumb and forefinger, feeling the entire testicle. Feel for: ?Lumps. ?Swelling. ?Discomfort. Check the groin area between your abdomen and upper thighs on both sides of your body. Look and feel for any swelling or bumps that are tender. These could be enlarged lymph nodes. Contact a health care provider if: You find any bumps or lumps, such as a small, hard, pea-sized lump. You find swelling, pain, or soreness. You see or feel any other changes in your testicles. Summary A self-examination of your testicles (testicular self-exam) involves looking at and feeling your testicles for any changes. Self-examination of the testicles and the left and right groin areas may be recommended if you are at risk for testicular cancer. You should check each of your testicles for lumps, swelling, or discomfort. You should check for swelling or tender bumps in your groin area between your lower abdomen and upper thighs. This information is not intended to replace advice given to you by your health care provider. Make sure you discuss any questions you have with your health care provider. Document Released: 06/24/2001 Document Revised: 07/09/2019 Document Reviewed: 02/11/2017 [employer] Patient Education 2020 [employer] Follow Up Care 10/16/2021 15:07:22 With:SCOTT HOANG, Murali Blancas, URL Address: [address] [place], [place] [id number]- When:6 months Comments:PSA & testosterone [facility] 07-18-2022 Hospital Discharge instructions Patient Education 10/16/2021 15:04:58 Benign Prostatic Hyperplasia Benign Prostatic Hyperplasia Benign prostatic hyperplasia (BPH) is an enlarged prostate gland that is caused by the normal agingprocess and not by cancer. The prostate is a walnut-sized gland that is involved in the production of semen. It is located in front of the rectum and below the bladder. The bladder stores urine and the urethra is the tube that carries the urine out of the body. The prostate may get bigger as a man gets older. An enlarged prostate can press on the urethra. This can make it harder to pass urine. The build-up of urine in the bladder can cause infection. Back pressure and infection may progress to bladder damage and kidney (renal) failure. What are the causes? This condition is part of a normal aging process. However, not all men develop problems from this condition. If the prostate enlarges away from the urethra, urine flow will not be blocked. If it enlarges toward the urethra and compresses it, there will be problems passing urine. What increases the risk? This condition is more likely to develop in men over the age of 50 years. What are the signs or symptoms? Symptoms of this condition include: Getting up often during the night to urinate. Needing to urinate frequently during the day. Difficulty starting urine flow. Decrease in size and strength of your urine stream. Leaking (dribbling) after urinating. Inability to pass urine. This needs immediate treatment. Inability to completely empty your bladder. Pain when you pass urine. This is more common if there is also an infection. Urinary tract infection (UTI). How is this diagnosed? This condition is diagnosed based on your medical history, a physical exam, and your symptoms. Tests will also be done, such as: A post-void bladder scan. This measures any amount of urine that may remain in your bladder after you finish urinating. A digital rectal exam. In a rectal exam, your health care provider checks your prostate by putting a lubricated, gloved finger into your rectum to feel the back of your prostate gland. This exam detects the size of your gland and any abnormal lumps or growths. An exam of your urine (urinalysis). A prostate specific antigen (PSA) screening. This is a blood test used to screen for prostate cancer. An ultrasound. This test uses sound waves to electronically produce a picture of your prostate gland. Your health care provider may refer you to a specialist in kidney and prostate diseases (urologist). How is this treated? Once symptoms begin, your health care provider will monitor your condition (active surveillance or watchful waiting). Treatment for this condition will depend on the severity of your condition. Treatment may include: Observation and yearly exams. This may be the only treatment needed if your condition and symptoms are mild. Medicines to relieve your symptoms, including: ?Medicines to shrink the prostate. ?Medicines to relax the muscle of the prostate. Surgery in severe cases. Surgery may include: ?Prostatectomy. In this procedure, the prostate tissue is removed completely through an open incision or with a laparoscope or robotics. ?Transurethral resection of the prostate (TURP). In this procedure, a tool is inserted through the opening at the tip of the penis (urethra). It is used to cut away tissue of the inner core of the prostate. The pieces are removed through the same opening of the penis. This removes the blockage. ?Transurethral incision (TUIP). In this procedure, small cuts are made in the prostate. This lessens the prostate's pressure on the urethra. ?Transurethral microwave thermotherapy (TUMT). This procedure uses microwaves to create heat. The heat destroys and removes a small amount of prostate tissue. ?Transurethral needle ablation (TUNA). This procedure uses radio frequencies to destroy and remove a small amount of prostate tissue. ?Interstitial laser coagulation (ILC). This procedure uses a laser to destroy and remove a small amount of prostate tissue. ?Transurethral electrovaporization (TUVP). This procedure uses electrodes to destroy and remove a small amount of prostate tissue. ?Prostatic urethral lift. This procedure inserts an implant to push the lobes of the prostate away from the urethra. Follow these instructions at home: Take ywqa-nyg-tytehcy and prescription medicines only as told by your health care provider. Monitor your symptoms for any changes. Contact your health care provider with any changes. Avoid drinking large amounts of liquid before going to bed or out in public. Avoid or reduce how much caffeine or alcohol you drink. Give yourself time when you urinate. Keep all follow-up visits as told by your health care provider. This is important. Contact a health care provider if: You have unexplained back pain. Your symptoms do not get better with treatment. You develop side effects from the medicine you are taking. Your urine becomes very dark or has a bad smell. Your lower abdomen becomes distended and you have trouble passing your urine. Get help right away if: You have a fever or chills. You suddenly cannot urinate. You feel lightheaded, or very dizzy, or you faint. There are large amounts of blood or clots in the urine. Your urinary problems become hard to manage. You develop moderate to severe low back or flank pain. The flank is the side of your body between the ribs and the hip. These symptoms may represent a serious problem that is an emergency. Do not wait to see if the symptoms will go away. Get medical help right away. Call your local emergency services (911 in the [place] Do not drive yourself to the hospital. Summary Benign prostatic hyperplasia (BPH) is an enlarged prostate that is caused by the normal aging process and not by cancer. An enlarged prostate can press on the urethra. This can make it hard to pass urine. This condition is part of a normal aging process and is more likely to develop in men over the age of 50 years. Get help right away if you suddenly cannot urinate. This information is not intended to replace advice given to you by your health care provider. Make sure you discuss any questions you have with your health care provider. Document Released: 03/18/2006 Document Revised: 02/10/2019 Document Reviewed: 04/22/2017 [employer] Patient Education 2020 [employer]. Follow Up Care 04/17/2021 14:02:48 With:Murali SCHRADER MD, URL Address: [address] [place], [place] [id number]- When:3 months Comments:Testosterone level [facility] Evaluation + Plan note Future Appointments Appointment Date:04/16/2022 02:15:00 PM Scheduled Provider:Murali SCHRADER MD Location:[facility] Appointment Type:URO Office Visit Diagnostic Tests Pending * Testosterone Level Total 10/16/21 [facility] Evaluation + Plan note Future Appointments Appointment Date:10/15/2022 02:15:00 PM Scheduled Provider:Murali SCHRADER MD Location:[facility] Appointment Type:URO Office Visit Diagnostic Tests Pending * PSA Total 04/16/22 * Testosterone Level Total 04/16/22 [facility] [employer] Evaluation + Plan note Future Appointments Appointment Date:10/23/2023 01:20:00 PM Scheduled Provider:EWA VIERA PA-C Location:[facility] Appointment Type:URO Office Visit Diagnostic Tests Pending * PSA Total 08/31/23 * Testosterone Level Total 10/17/22 * Hemoglobin and Hematocrit 08/31/23 * Hepatic Function Panel 08/31/23 * Lipid Panel 08/31/23 [facility] evaluation noteNo InformationNort [facility] Other History general Narrative - Reported* Type Description Date Medical History glaucoma Medical History insomnia Medical History GERD (gastroesophageal reflux di sease) Medical History Hypothyroidism Surgical History tonsillectomy Surgical History appendectomy Surgical History carpal tunnel release right Hospitalization History see above Provasculon Other Hospital course Narrative No data available for this section [facility] [employer] Progress note No data available for this section [facility] [employer] Summary Purpose Family History No Family History Records FoundNo Family History Records FoundNo Family History Records Found Advance Directives No Advanced Directives Records FoundNo Advanced Directives Records FoundNo Advanced Directives Records Found Additional Source Comments (unrecognized sect ion and content) No Status Records FoundNo Status Records FoundNo Status Records Found INFORMATION SOURCE (unrecogn ized section and content) DATE CREATED AUTHOR 06/20/2018 [facility] DATE CREATED AUTHOR AUTHOR'S ORGANIZ ATION 05/29/2022 [facility] DATE CREATED AUTHOR AUTHOR'S ORGANIZ ATION 03/19/2023 [facility] Care Team (unrecognized sect ion and content) Personnel Name: Frederick Gonzalez DO Address: [address] [place] [address] Personnel Name: Frederick Gonzalez DO Address: Address: [address] [place] [address] Personnel Name: Frederick Gonzalez DO Address: Address: [address] [place] [id number]- REASON FOR VISIT (unrecogniz ed section and content) SINUS INFECTION, SORE THROAT , YELLOW MUCUSNo InformationSINUS INFECTION, HERE A WEEK AGO, FINISHED MEDICATIONS BUT SYMPTOMS PERSIST FOR RECORDS PERTAINING TO PATIENTS WHO ARE OR HAVE BEEN ENROLLED IN A CHEMICAL DEPENDENCY/SUBSTANCEABUSE PROGRAM, SOME INFORMATION MAY BE OMITTED. This clinical summary was aggregated from multiple sources. Caution should be exercised in using it in the provision of clinical care. This summary normalizes information from multiple sources, and as a consequence, information in this document may materially change the coding, format and clinical context of patient data. In addition, data may be omitted in some cases. CLINICAL DECISIONS SHOULD BE BASED ON THE PRIMARY CLINICAL RECORDS. [employer] provides no warranty or guarantee of the accuracy or completeness of information in this document.
[2023-06-15 02:07] LABS: Testosterone 524 ng/dL (264-916)
== END 2023-06-14 10:05 | disposition home or self-care (01) ==
LOC: LAB 10:06
PROVIDERS: Visit Provider Physician Assistant
DX: E29.1 Testicular hypofunction (principal)
CPT/HCPCS: 36415; 84403

== ENCOUNTER 2023-09-07 09:09 | Outpatient (OUT) | payer MEDICARE, OTHER, SELFPAY ==
--- OUTSIDE RECORDS SUMMARY | 2023-09-07 09:13 | XMS_ITS ---
Patient Summarization (C-CDA 2.1 CCD) Created on: September 07, 2023 LAMONT LOWERY : 1945 Sex: Male Author Organization Sample organization Care Team Providers Care Restoration Ecologist Name Role Phone NARCISO MARINELLI Attending Unavailable RICE, MURALI Blancas Referring Unavailable FANNING, NARCISO Zapien Referring Unavailable FANNING, NARCISO Zapien Attending Unavailable RUPERTO BLAS Referring Unavailab Frederick Villafuerte Primary Care Physician HOUSE, DR HARMAN Primary Care Unavailable RICE, DR MURALI Blancas Consulting Unavailable RICE, DR MURALI Blancas Admitting Unavailable RICE, DR MURALI Blancas Attending Unavailable HOUSE, DR HARMAN Admitting Unavailable [...] Unavailable RICE, DR MURALI Blancas Admitting Unavailable Igor, Magnolia Unavailable Myrna Isbell Unavailable Murali SCHRADER Attending Unavailable MAXIMILIANOEWA Attending Unavailable MAXIMILIANOEWA BENITEZ Attending Unavailable MAXIMILIANO, EWA Zapien Admitting Unavailable MAXIMILIANOEWA BENITEZ Attending Unavailable Allergies Allergy Classification Reported Allergen(s) Allergy Type Date of Onset Reaction(s) Facility (1 source) No Known Medication Allergies; 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: [No Known Medication Allergies] Propensity to adverse reactions (disorder) [facility] Repository Encounters Encounter Date Encounter Type Care Provider Facility Start: 03-19-2023 End: 03-19-2023 ambulatory Myrna Isbell Other [facility] Other Start: 03-19-2023 Office outpatient vi sit 15 minutes Myrna Isbell [facility] Start: 03-15-2023 End: 03-15-2023 ambulatory Magnolia Costa Other [facility] Other Start: 03-15-2023 Telephone encounter Magnolia Igor [facility] Start: 03-14-2023 End: 03-14-2023 ambulatory Magnolia Igor Other [facility] Other Start: 03-14-2023 Office outpatient vi sit 15 minutes Magnolia Igor [facility] Start: 10-17-2022 End: 10-18-2022 ambulatory EWA VIERA Facility:[facility] Start: 10-17-2022 End: 10-18-2022 ambulatory EWA VIERA Facility:[facility] Start: 10-17-2022 End: 10-17-2022 Patient encounter procedure EWA VIERA [facility] Start: 10-15-2022 ambulatory Murali SCHRADER Facility: [facility] Start: 05-24-2022 End: 05-25-[address] FREDERICK GONZALEZ Facility:[facility] Start: 04-16-2022 End: 04-16-2022 Patient encounter procedure Murali SCHRADER [facility] Start: 01-26-2022 End: 01-27-[address] MURALI SCHRADER Facility:[facility] Start: 10-16-2021 End: 10-16-2021 Patient encounter procedure Murali SCHRADER [facility] Start: 09-08-2021 End: 09-09-[address] FREDERICK GONZALEZ Facility:[facility] Start: 09-01-2021 End: 09-02-[address] FREDERICK GONZALEZ Facility:[facility] Start: 06-19-2018 End: 06-20-2018 Patient encounter procedure NARCISO MARINELLI [facility] Start: 05-29-2018 End: 05-30-2018 Patient encounter procedure NARCISO MARINELLI [facility] Immunizations Immunization Date Immunization Notes Care Provider Fa itzel 03-16-2021 SARS-CoV-2 (COVID-19 ) mRNA BNT-162b2 vax [facility] Comment on above: Result Comment: 2022: [id number] 03-01-2021 SARS-CoV-2 (COVID-19 ) mRNA BNT-162b2 vax [facility] 06-29-2020 SARS-CoV-2 (COVID-19 ) mRNA BNT-162b2 vax [facility] 06-24-2020 SARS-CoV-2 (COVID-19 ) mRNA-1273 vaccine [facility] 06-08-2020 SARS-CoV-2 (COVID-19 ) mRNA BNT-162b2 Edufiix [facility] 06-03-2020 SARS-CoV-2 (COVID-19 ) mRNA-1273 vaccine [facility] 04-10-2018 tetanus toxoid, redu maurisio diphtheria toxoid, and acellular pertussis vaccine, adsorbed [facility] Medications Current Medications Medication Drug Class(es) Dates [...] Status: Ordered take 1 tablet by bryanna once daily in the morning Levothyroxine Sodium [...] q5day, # 10 mL, Refills(s) 5, Pharmacy: [id number], 172, cm, 10/17/22 13:50:00 EDT, Height/Length Dosing, 95, kg, 10/17/22 13:50:00 EDT, Weight Dosing Start Date: 10/17/22 Status: Ordered Start: 01-22-2022 testosterone c ypionate 100 mg/mL intramuscular solution 50 mg, IntraMuscular, q5day, # 10 mL, Refills(s) 3, Pharmacy: [facility][id number], 172, cm, 10/16/21 14:53:00 EDT, Height/Length Dosing, 95, kg, 10/16/21 14:53:00 EDT, Weight Dosing Start Date: 01/22/22 Status: Ordered Start: 10-16-2021 testosterone c ypionate 100 mg/mL intramuscular solution 50 mg, IntraMuscular, q7day, # 10 mL, Refills(s) 3, Pharmacy: [facility] #[id number], 172, cm, 10/16/21 14:53:00 EDT, Height/Length Dosing, [...] 10/10/20 Status: Ordered take 1 tablet by [facility] every twelve hours Valsartan 40 MG 1 [...] KENALOG - 10 mg Dec, 40 mg Payers Date Payer Category Payer Medicare [id number] 1957 Medicare [id number] 1957 Unknown [id number] 1945 Unknown [id number] 2.16.84 [id number] 1945 Unknown [id number] 2.16.84 [id number] 1945 Unknown [id number] 2.16.84 [id number] 1945 Unknown [id number] 2.16.84 [id number] 1945 Unknown [id number] 2.16.8 [id number] 1945 Unknown [id number] 2.16.8 [id number] 1945 Unknown [id number] 2.16.8 [id number] 1945 Unknown [id number] 2.16.8 [id number] Unknown [id number] 2.16.84 [id number] Plan of Treatment Date Care Activity Detail Author Start: 10-15-2023 ambulatory Ambulatory Facility:[facility] Problems Active Problems Problem Classification Problem Date [...] with and (suspected) exposure to covid-19 Z20.822 Procedures Date Procedure Procedure Detail Performing Clinician Start: 09-01-[address] ROBIN GONZALEZ Comment on above: Performed By: #### P SAD #### [facility] [address] [place] [address] Dr. Lazaro Sam Appendectomy Murali SCHRADER Decompression of med trev nerve Murali SCHRADER Results Test Name Value Interpretation Reference Range Facility [facility] 06-17-2023 Lab Reports [id number]#1.00T IFF Normal [facility] 03-19-2023 Lab Reports [id number]#1.00T IFF Normal [facility] COVID + FLU Quick Testingon 03-14-2023 SARS-CoV-2 (COVID-19) RNA STEFF+probe Ql (Unsp spec) Negative [facility] Other COVID + FLU Quick Testing Negative [facility] Other Quick Strepon 03-14-2023 S. pyogenes Org specific cx Ql (Throat) Negative [facility] Other Quick Strep [facility] Other [facility] 12-04-2022 Lab Reports [id number]#1.00C D:127 Normal [facility] 11-27-2022 Lab Reports [id number]#1.00C D:127 Normal [facility] C Urineon 10-19-2022 Bacteria identified Cx Nom (U) Microbiology PROCEDURE: Urine Culture [R1] SOURCE: U Random BODY SITE: COLLECTED DATE/TIME: 10/17/2022 15:25 EDT RECEIVED DATE/TIME: 10/17/2022 18:26 EDT START DATE/TIME: 10/17/2022 18:26 EDT FREE TEXT SOURCE: MAXIMILIANO MAIER, EWA VIERA PA-C, EWA Zapien FINAL REPORTS Final Report [] Verified Date/Time: 10/19/2022 11:24 EDT No growth at 2 days. Performing Locations R1: This test was performed at: [employer] [facility], [address] [place] [address], [id number] , , [facility] Comment on above: Performed By: #### 2 [id number] #### [address] [place] [address] [facility] 10-19-2022 Lab Reports [id number]#1.00 CD:127 Normal [facility] Screenson 10-19-2022 Screens [id number]#1.00 CD:127 Normal [facility] Ambulatory Visit Summaryon 0 10-17-2022 Ambulatory Visit Summary LAMONT LOWERY :1945 MRN: Visit Date:10/17/2022 Ambulatory Visit Instructions Your Diagnosis BPH with urinary obstruction Male hypogonadism Asymptomatic microscopic hematuria Tests Performed Urnls Dip Stick Auto w/o Microscopy POC [id number] Your Care Team Attending Physician - EWA [...] EWA VIERA PA-C Where: [facility] Patient Educationon 10-18-19 23 Patient Education Urology [...] Follow these instructions at home: ? Take bqhq-hrh-popjepj and prescription medicines only as told by [...] 11/17/2020 Document (more content not included)... Normal [facility] Urinalysison 10-17-2022 Bilirubin Ql (U) Negative Normal Negative [facility] Comment on above: Performed By: #### 1 [id number] #### [facility] [address] [place] [address] Clarity (U) CLEAR Normal Clear [facility] Comment on above: Performed By: #### 1 [id number] #### [facility] [address] [place] [address] Color (U) YELLOW Normal Yellow [facility] Comment on above: Performed By: #### 1 [id number] #### [facility] [address] [place] [address] Epithelial cells.squamous LM.HPF (Urine sed) [#/Area] 0-2 Normal 0-2 [facility] Comment on above: Performed By: #### 1 [id number] #### [facility] [address] [place] [address] Glucose Test strip (U) [Mass/Vol] Negative Normal Negative [facility] Comment on above: Performed By: #### 1 [id number] #### [facility] [address] [place] [address] Hemoglobin Ql (U) Negative Normal Negative [facility] Comment on above: Performed By: #### 1 [id number] #### [facility] [address] [place] [address] Ketones (U) [Mass/Vol] Negative Normal Negative [facility] Comment on above: Performed By: #### 1 [id number] #### [facility] [address] [place] [address] [place].plasma/Lit hium.RBC (Bld) [Mass ratio] 0-3 Normal 0-3 [facility] Comment on above: Performed By: #### 1 [id number] #### [facility] [address] [place] [address] Nitrite Ql (U) Negative Normal Negative [facility] Comment on above: Performed By: #### 1 [id number] #### [facility] [address] [place] [address] pH (U) 6.0 [pH] Invalid Interpretation Code 5.0-9.0 [facility] Comment on above: Performed By: #### 1 [id number] #### [facility] [address] [place] [address] Protein (U) [Mass/Vol] Negative Normal Negative [facility] Comment on above: Performed By: #### 1 [id number] #### [facility] [address] [place] [address] Specific gravity (U) [Rel density] 1.015 Invalid Interpretation Code 1.005-1.030 [facility] Comment on above: Performed By: #### 1 [id number] #### [facility] [address] [id number] Type of Urine collection method Random Urine Normal [facility] Comment on above: Performed By: #### 1 [id number] #### [facility] [address] [place] [address] Urobilinogen Qn (U) 0.2 {Elizabeth'U}/dL Normal 0.0-1.0 [facility] Comment on above: Performed By: #### 1 [id number] #### [facility] [address] [place] [address] WBC Auto Ql (U) Negative Normal Negative [facility] Comment on above: Performed By: #### 1 [id number] #### [facility] [address] [place] [address] WBC LM.HPF (Urine sed) [#/Area] 0-5 Normal 0-5 [facility] Comment on above: Performed By: #### 1 [id number] #### [facility] [address] [id number] Urology Office/Clinic Noteon 10-17-2022 Urology Office/Clinic Note [...] give him a few upcoming dates from [employer] website of local blood drives. Pt will [...] When Contact Information EWA VIERA PA-C, URL [address] [place] [place] [address] Additional Instructions: 1 yr w multiple labs Patient Education Hypogonadism, Male Documentation recorded by the scribe Pippa Munguia accurately reflects the services(s) I performed and decisions made by me. Authenticated by Ewa Viera PA-C on 10/17/2022 16:18:03. IPippa, personally scribed for Ewa Viera PA-C on 10/17/2022 14:57:58. . Problem List/Past Medical History Ongoing Anticoagulated Asymptomatic microscopic hematuria BMI 30.0-30.9,adult BPH with urinary obstruction Male hypogonadism Male impotence Urinary hesitancy Historical Insomnia Sleep apnea Procedure/Surgical History Appendectomy, Carpal tunnel release. Medication (more content not included)... Normal [facility] Comment on above: Result Comment: Elec tronically Signed By: MAXIMILIANO MAIER, EWA Zapien\.br\Date and Time Signed: 10/17/22 16:19 EDT TESTOSTERONE, TOTALon 2022 Testosterone [Mass/Vol] 749 ng/dL Normal 264-916 [facility] Comment on above: Result Comment: Adul t male reference interval is based on a population of healthy nonobese males (BMI <30) between 19 and 39 years old. Abel, et.al. JCEM 2017,102;4776-7471. PMID: [id number]. Performed By: #### T ESTTOT #### [facility] [address] [place] [address] Dr. Lazaro Sam TESTOSTERONE, TOTALon 2021 Testosterone [Mass/Vol] 740 ng/dL Normal 264-916 [facility] Comment on above: Result Comment: Adul t male reference interval is based on a population of healthy nonobese males (BMI <30) between 19 and 39 years old. Travison, et.al. JCEM 2017,102;2773-9351. PMID: [id number]. Performed By: #### T ESTTOT #### [facility] [address] [place] [address] Dr. Lazaro Sam CBC AUTO DIFFon 09-08-2021 BASO # 0.0 103/ul Normal 0.0-0.1 [facility] Comment on above: Performed By: #### C BC #### [facility] [address] [place] [address] Dr. Lazaro Sam Basophils/100 WBC (Bld) 0.4 % Normal 0.2-2.0 [facility] Comment on above: Performed By: #### C BC #### [facility] [address] [place] [address] Dr. Lazaro Sam EO # 0.1 103/ul Normal 0.0-0.7 [facility] Comment on above: Performed By: #### C BC #### [facility] [address] [place] [address] Dr. Lazaro Sam Eosinophils/100 WBC (Bld) 0.6 % Critically low 0.9-7.0 [facility] Comment on above: Performed By: #### C BC #### [facility] [address] [place] [address] Dr. Lazaro Sam Erythrocyte distribution width (RBC) [Ratio] 13.7 % Normal 11.0-15.0 [facility] Comment on above: Performed By: #### C BC #### [facility] [address] [place] [address] Dr. Lazaro Sam Hematocrit (Bld) [Volume fraction] 52.4 % Normal 42.0-54.0 [facility] Comment on above: Performed By: #### C BC #### [facility] [address] [place] [address] Dr. Lazaro Sam Hemoglobin (Bld) [Mass/Vol] 17.3 g/dL Normal 14.0-18.0 [facility] Comment on above: Performed By: #### C BC #### [facility] [address] [place] [address] Dr. Lazaro Sam IG # 0.03 10e3/ul Normal 0.00-0.03 [facility] Comment on above: Performed By: #### C BC #### [facility] [address] [place] [address] Dr. Lazaro Sam IG % 0.4 % Normal 0.0-0.5 [facility] Comment on above: Performed By: #### C BC #### [facility] [address] [place] [address] Dr. Lazaro Sam LYMPH # 1.5 103/ul Normal 1.2-3.8 [facility] Comment on above: Performed By: #### C BC #### [facility] [address] [place] [address] Dr. Lazaro Sam Lymphocytes/100 WBC (Bld) 18.7 % Critically low 20.5-60.0 [facility] Comment on above: Performed By: #### C BC #### [facility] [address] [address] [address] Lazaro Sam MANUAL DIFF REQ NO Normal [facility] Comment on above: Performed By: #### C BC #### [facility] [address] [place] [address] Dr. Lazaor Sam MCH (RBC) [Entitic mass] 29.7 pg Normal 25.9-34.0 [facility] Comment on above: Performed By: #### C BC #### [facility] [address] [place] [address] Dr. Lazaro Sam MCHC (RBC) [Mass/Vol] 33.0 g/dL Normal 29.9-35.2 [facility] Comment on above: Performed By: #### C BC #### [facility] [address] [place] [address] Dr. Lazaro Sam MCV (RBC) [Entitic vol] 90.0 fL Normal 80.0-94.0 [facility] Comment on above: Performed By: #### C BC #### [facility] [address] [place] [address] Dr. Lazaro Sam MONO # 0.6 103/ul Normal 0.3-0.8 [facility] Comment on above: Performed By: #### C BC #### [facility] [address] [place] [address] Dr. Lazaro Sam Monocytes/100 WBC (Bld) 7.7 % Normal 1.7-12.0 [facility] Comment on above: Performed By: #### C BC #### [facility] [address] [place] [address] Dr. Lazaro Sam NEUT # 5.8 103/ul Normal 1.4-6.5 [facility] Comment on above: Performed By: #### C BC #### [facility] [address] [place] [address] Dr. Lazaro Sam Neutrophils/100 WBC (Bld) 72.2 % Normal 43.0-75.0 [facility] Comment on above: Performed By: #### C BC #### [facility] [address] [place] [address] Dr. Lazaro Sam Platelet mean volume (Bld) [Entitic vol] 9.1 fL Critically low 9.5-13.5 [facility] Comment on above: Performed By: #### C BC #### [facility] [address] [place] [address] Dr. Lazaro Sam PLT 162 103/ul Normal 150-450 [facility] Comment on above: Performed By: #### C BC #### [facility] [address] [place] [address] Dr. Lazaro Sam RBC 5.82 106/ul Normal 4.70-6.10 [facility] Comment on above: Performed By: #### C BC #### [facility] [address] [place] [address] Dr. Lazaro Sam WBC 8.1 103/ul Normal 4.0-11.0 [facility] Comment on above: Performed By: #### C BC #### [facility] [address] [place] [address] Dr. Lazaro Sam PROF 14(COMP METB)on 022 Albumin [Mass/Vol] 3.7 g/dL Normal 3.4-5.0 [facility] Comment on above: Performed By: #### C MP, TSH #### [facility] [address] [place] [address] Dr. Lazaro Sam Albumin/Globulin [Mass ratio] 0.9 {ratio} Normal [facility] Comment on above: Performed By: #### C MP, TSH #### [facility] [address] [place] [address] Dr. Lazaro Sam ALP [Catalytic activity/Vol] 72 U/L Normal 46-116 [facility] Comment on above: Performed By: #### C MP, TSH #### [facility] [address] [address] [address] Lazaro Sam ALT [Catalytic activity/Vol] 42 U/L Normal 16-63 [facility] Comment on above: Performed By: #### C MP, TSH #### [facility] [address] [place] [address] Dr. Lazaro Sam Anion gap [Moles/Vol] 13.4 mmol/L Normal [facility] Comment on above: Performed By: #### C MP, TSH #### [facility] [address] [address] [address] Lazaro Sam AST [Catalytic activity/Vol] 22 U/L Normal 15-37 [facility] Comment on above: Performed By: #### C MP, TSH #### [facility] [address] [place] [address] Dr. Lazaro Sam Bilirubin [Mass/Vol] 0.6 mg/dL Normal 0.2-1.0 [facility] Comment on above: Performed By: #### C MP, TSH #### [facility] [address] [place] [address] Dr. Lazaro Sam Calcium [Mass/Vol] 8.8 mg/dL Normal 8.5-10.1 [facility] Comment on above: Performed By: #### C MP, TSH #### [facility] [address] [place] [address] Dr. Lazaro Sam Chloride [Moles/Vol] 104 mmol/L Normal 98-107 [facility] Comment on above: Performed By: #### C MP, TSH #### [facility] [address] [place] [address] Dr. Lazaro Sam CO2 [Moles/Vol] 26.5 mmol/L Normal 21.0-32.0 [facility] Comment on above: Performed By: #### C MP, TSH #### [facility] [address] [place] [address] Dr. Lazaro Sam Creatinine [Mass/Vol] 1.30 mg/dL Normal 0.70-1.30 [facility] Comment on above: Performed By: #### C MP, TSH #### [facility] [address] [address] [address] Lazaro Sam EGFR-AF [place]ER >60 Normal >=60 [facility] Comment on above: Performed By: #### C MP, TSH #### [facility] [address] [address] [address] Lazaro Sam EGFR-NON AF [place] 54 mL/min/1.73m2 Critically low >=60 [facility] Comment on above: Performed By: #### C MP, TSH #### [facility] [address] [address] [address] Lazaro Sam Globulin (S) [Mass/Vol] 3.9 g/dL Normal [facility] Comment on above: Performed By: #### C MP, TSH #### [facility] [address] [address] [address] Lazaro Sam Glucose [Mass/Vol] 117 mg/dL Critically high 74-106 [facility] Comment on above: Performed By: #### C MP, TSH #### [facility] [address] [address] [address] Lazaro Sam Potassium [Moles/Vol] 3.9 mmol/L Normal 3.5-5.1 [facility] Comment on above: Performed By: #### C MP, TSH #### [facility] [address] [place] [address] Dr. Lazaro Sam Protein [Mass/Vol] 7.6 g/dL Normal 6.4-8.2 [facility] Comment on above: Performed By: #### C MP, TSH #### [facility] [address] [place] [address] Dr. Lazaro Sam Sodium [Moles/Vol] 140 mmol/L Normal 136-145 [facility] Comment on above: Performed By: #### C MP, TSH #### [facility] [address] [address] [address] Lazaro Sam Urea nitrogen [Mass/Vol] 23.0 mg/dL Critically high 7.0-18.0 [facility] Comment on above: Performed By: #### C MP, TSH #### [facility] [address] [place] [address] Dr. Lazaro Sam Urea nitrogen/Creatinin e [Mass ratio] 17.7 mg/mg Normal [facility] Comment on above: Performed By: #### C MP, TSH #### [facility] [address] [place] [address] Dr. Lazaro Sam T4on 09-08-2021 T4 [Mass/Vol] 7.70 ug/dL Normal 4.50-12.10 [facility] Comment on above: Performed By: #### T 4 #### [facility] [address] [place] [address] Dr. Lazaro Sam TSHon 09-08-2021 TSH 1.079 uIU/mL Normal 0.358-3.740 [facility] Comment on above: Performed By: #### C MP, TSH #### [facility] [address] [place] [address] Dr. Lazaro Sam TSH RANGE SEE BELOW Normal [facility] Comment on above: Result Comment: <0.3 4 UIU/ml HYPERTHYROID 0.34-5.60 UIU/ml EUTHYROID >5.60 UIU/ml HYPOTHYROID Performed By: #### C MP, TSH #### [facility] [address] [place] [address] Dr. Lazaro Sam TESTOSTERONE, FREE,DIRECT, T OTALon 09-03-2021 Free Testosterone(Direc t) 9.4 pg/mL Normal 6.6-18.1 [facility] Comment on above: Result Comment: Perf ormed at: BN Performed By: #### T ESTFRD #### [facility] [address] [place] [address] Dr. Lazaro Sam Testosterone [Mass/Vol] 328 ng/dL Normal 264-916 [facility] Comment on above: Result Comment: Adul t male reference interval is based on a population of healthy nonobese males (BMI <30) between 19 and 39 years old. martha Roman.al. JCEM 2017,102;5304-4030. PMID: [id number]. Performed at: CB Performed By: #### T ESTFRD #### [facility] [address] [address] [address] Lazaro Sam CNOVSPon 06-19-2018 CNOVSP Visit (SP) Office (HEMACL) LAMONT LOWERY ([id number]) 1945 M Date Time Provider Department 06/19/18 2:30 PM NARCISO MARINELLI During your visit today, we recorded the [...] week. - CBC + DIFF (FOR REMOTE ON LICENSE OF [facility] USE) Narciso Marinelli MD Referring Provider: RUPERTO BLAS [[id number]] Allergies As of Date: 06/19/2018 (No Known Allergies) Date Reviewed: 06/19/2018 Reviewed by: Melvi Valle - Fully Assessed Reason for Visit: polycythemia [Other] Cmt: follow up Primary Visit Diagnosis:Erythrocytosi s [D75.1] Order(s):CBC + DIFF (FOR REMOTE ON LICENSE OF [facility] USE) [SQRCBCDF] Order #: [id number] STANDING Disposition: Return in about 1 year [...] by NARCISO MARINELLI MD on 06/19/18 Normal [facility] [place] [facility] PROGRESSon 06-19-2018 Protein mass conc HNO ID: [id number] Author: Narciso Marinelli Service: ? Author Type: Physician Type: Progress Notes Filed: 06/19/2018 2:18 PM Note Text: BARB Lowery is a 72 year old male [...] week. - CBC + DIFF (FOR REMOTE ON LICENSE OF [facility] USE) Narciso Marinelli MD Normal [facility] [place] [facility] Remote CBCDIF (for ON LICENSE OF [facility] use o nly)on 06-19-2018 Abs Baso <0.03 Normal 0.00-0.10 [facility] [place] [facility] Abs [place] 1.02 k/uL High 0.00-0.86 [facility] [place] [facility] Abs Neut 5.04 k/uL Normal 1.45-7.50 [facility] [place] [facility] Basophils/100 WBC (Bld) 0.2 % Normal [facility] [place] [facility] Eosinophils #/vol (Bld) 0.40 10*3/uL Normal 0.00-0.45 [facility] [place] [facility] Eosinophils/100 WBC (Bld) 4.5 % Normal [facility] [place] [facility] Erythrocyte distribution width Ratio (RBC) 13.3 % Normal 11.5-15.0 [facility] [place] [facility] Hematocrit Volume Fraction (Bld) 48.8 % Normal 39.0-51.0 [facility] [place] [facility] Hemoglobin mass conc (Bld) 16.8 g/dL Normal 13.0-17.0 [facility] [place] [facility] Lymphocytes #/vol (Bld) 2.43 10*3/uL Normal 1.00-4.00 [facility] [place] [facility] Lymphocytes/100 WBC (Bld) 27.3 % Normal [facility] [place] [facility] MCH Entitic mass (RBC) 30.5 pG Normal 26.0-34.0 [facility] [place] [facility] MCHC mass conc (RBC) 34.4 g/dL Normal 30.5-36.0 [facility] [place] [facility] MCV Entitic volume (RBC) 88.6 fL Normal 80.0-100.0 [facility] [place] [facility] Monocytes/100 WBC (Bld) 11.4 % Normal [facility] [place] [facility] Neutrophils/100 WBC (Bld) 56.6 % Normal [facility] [place] [facility] Platelet mean volume Entitic volume (Bld) 9.6 fL Normal 9.0-12.7 [facility] [place] [facility] Platelets #/vol (Bld) 152 10*3/uL Normal 150-400 [facility] [place] [facility] RBC #/vol (Bld) 5.51 10*6/uL Normal 4.20-6.00 [facility] WBC #/vol (Bld) 8.91 10*3/uL Normal 3.70-11.00 [facility] BCR-ABL Qualitativeon 2018 BCR-ABL Qualitative (NOTE) Normal [facility] [place] [facility] Comment on above: Result Comment: Plea se refer to [facility] Surgical Pathology report, Performed By: #### C ALR, BCRQL #### [id number] [address] CALR Exon 9 Mutationon 05-29 CALR Result/Interp Duplicate request Normal [facility] [place] [facility] Comment on above: Result Comment: Acco unt Credited SEE MPNP. DMCKNIGHT 05 30 2018 Performed By: #### C ALR, BCRQL #### [address] [address] CALR Reviewed by Duplicate request Normal [facility] Comment on above: Result Comment: Acco unt Credited SEE MPNP. DMCKNIGHT 05 30 2018 Performed By: #### C ALR, BCRQL #### [id number] [place] [address] CALR Specimen Type Duplicate request Normal [facility] [place] [facility] Comment on above: Result Comment: Acco unt Credited SEE MPNP. DMCK2018 Performed By: #### C ALR, BCRQL #### [id number] [place] [address] CNCOon 05-29-2018 CNCO Letter Text Dear Lamont Lowery: How to activate your [facility] [employer] Account 1. Visit the [employer] Signup page at [email or web address] 2. Identify yourself using your one-time use activation code: [email or web address] 3. Follow the on-screen prompts to choose [...] information on the Identify Yourself Form at [email or web address] , click Next. Create your login and password, choose a [employer] ID and password that will be easy for you to use, but impossible for anyone else to guess. Pick a security question that will assist you in the event you forget your password the next time you log-on. If you have difficulty activating your account, please call our [employer] helpline at [phone] or toll free at . We hope you enjoy using [employer]! Kindest Regards, [facility] [employer] Team Normal [facility] [place] [facility] CNOVSPon 05-29-2018 CNOVSP Visit (SP) Office (HEMACL) LAMONT LOWERY ([id number]) 1945 M Date Time Provider Department 05/29/18 11:15 AM NARCISO MARINELLI HEMGIULIANA During your visit today, we recorded the following information about you: Temperature Pulse Respiration Blood pressure 97.8 degrees 69/minute 16/minute 192/89 Weight Height 91.8 kg 1.727 m Narciso Marinelli MD 05/29/2018 12:28 PM Signed HPI Lamont Aguirre Beverley is a 72 year old male who [...] viscosity is hematocrit with the risk of TN, CVA, Budd Chiari, etc all increased proportionately [...] Narciso Marinelli MD Referring Provider: MURALI SCHRADER [[id number]] Allergies As of Date: 05/29/2018 (No Known Allergies) Date Reviewed: 05/29/2018 Reviewed by: Melvi Valle - Fully Assessed Reason for Visit: high HGB [Other] Cmt: new patient consultation ref. Dr. Schrader Primary Visit Diagnosis:Polycythemia [D75.1] Other Visit Diagnosis:Erythrocytosi s [D75.1] Order(s):JAK2 V617F MUTATION BLOOD [SQJAK2] Order #: [id number] FUTURE BCR-ABL QUALITATIVE MULTIPLEX RT-PCR [SQBCRQL] Order #: [id number] FUTURE CALR EXON 9 MUTATION ANALYSIS BLOOD [SQCALR] Order #: [id number] FUTURE MPL MUTATION ANALYSIS BLOOD [SQMPL] Order #: [id number] FUTURE ABS GRAN CT + CBC (FOR REMOTE [facility] USE) [SQRAGCBC] Order #: [id number] FUTURE ERYTHROPOIETIN/EPO [SQEPO] Order #: [id number] FUTURE HEPATIC FUNCTION PNL [SQHFP] Order #: [id number] FUTURE TESTOSTERONE TOTAL [SQTESTO] Order #: [id number] FUTURE Disposition: Return in about 3 weeks [...] by NARCISO MARINELLI MD on 05/29/18 Normal [facility] [place] [facility] EPOon 05-29-2018 EPO 8.8 mIU/mL Normal 2.6-18.5 [facility] [place] [facility] Comment on above: Result Comment: Test analyzed by the Xiang DxI method. Performed By: #### Lucille AK2, EPO, HFP #### [facility] [employer] [address] [id number] Hepatic Functn Panelon 05-29 Albumin mass conc 4.6 g/dL Normal 3.9-4.9 [facility] Comment on above: Performed By: #### J AK2, EPO, HFP #### [facility] [employer] [address] [place], [place] [address] ALP enzyme act/vol 60 U/L Normal 38-113 [facility] Comment on above: Performed By: #### J AK2, EPO, HFP #### [facility] [employer] [address] [address] ALT enzyme act/vol 36 U/L Normal 10-54 [facility] Comment on above: Performed By: #### J AK2, EPO, HFP #### [address] [place] [address] AST enzyme act/vol 29 U/L Normal 14-40 [facility] Comment on above: Performed By: #### Lucille AK2, EPO, HFP #### [address] [place] [address] Bilirubin mass conc 0.5 mg/dL Normal 0.2-1.3 [facility] [place] [facility] Comment on above: Performed By: #### Lucille AK2, EPO, HFP #### [address] [place] [address] Bilirubin,Conjugat ed <0.2 Normal <0.2 [facility] [place] [facility] Comment on above: Performed By: #### Lucille AK2, EPO, HFP #### [address] [address] Protein mass conc 7.6 g/dL Normal 6.3-8.0 [facility] Comment on above: Performed By: #### Lucille AK2, EPO, HFP #### [address] [place] [address] JAK2 V617F Mutationon 2018 JAK2 V617F Interp Duplicate request Normal [facility] [place] [facility] Comment on above: Result Comment: Acco unt Credited SEE MPNP. DMCKNIGHT 05 30 2018 Performed By: #### Lucille AK2, EPO, HFP #### [address] [place] [address] JAK2 V617F Spec Type Duplicate request Normal [facility] [place] [facility] Comment on above: Result Comment: Acco unt Credited SEE MPNP. DMCKNIGHT 05 30 2018 Performed By: #### Lucille AK2, EPO, HFP #### [address] [address] Molecular Path Rev Duplicate request Normal [facility] [place] [facility] Comment on above: Result Comment: Acco unt Credited SEE MPNP. DMCKNIGHT 05 30 2018 Performed By: #### J AK2, EPO, HFP #### [facility] [address] [place], [place] [address] MPL Mutationon 05-29-2018 MPL Mutation Interp Duplicate request Normal [facility] [place] [facility] Comment on above: Result Comment: Acco unt Credited SEE MPNP. DMCKNIGHT 05 30 2018 Performed By: #### M PL #### [facility] [address] [id number] Myeloprolif Neopl Pnl Bloodo n 05-29-2018 Myelo Neopl Pnl Bld (NOTE) Normal [facility] [place] [facility] Comment on above: Result Comment: Plea se refer to [facility] Surgical Pathology report, . Performed By: #### M PNP ####[facility] [address] [place], [place] [phone] PROGRESSon 05-29-2018 Protein mass conc HNO ID: [id number] Author: Narciso Marinelli Service: (none) Author Type: Physician Type: Progress Notes Filed: 05/29/2018 12:28 PM Note Text: BARB Lamont Lowery is [...] viscosity is hematocrit with the risk of TN, CVA, Budd Chiari, etc all increased proportionately [...] - TESTOSTERONE TOTAL Narciso Marinelli MD Normal [facility] [place] [facility] Remote Abs Gran + CBC (for [facility] use only)on 05-29-2018 Absol Gran Count 3.85 k/uL Normal 1.45-7.50 [facility] Erythrocyte distribution width Ratio (RBC) 13.6 % Normal 11.5-15.0 [facility] [place] [facility] Hematocrit Volume Fraction (Bld) 49.6 % Normal 39.0-51.0 [facility] [place] [facility] Hemoglobin mass conc (Bld) 17.1 g/dL High 13.0-17.0 [facility] [place] [facility] MCH Entitic mass (RBC) 30.5 pG Normal 26.0-34.0 [facility] [place] [facility] MCHC mass conc (RBC) 34.5 g/dL Normal 30.5-36.0 [facility] [place] [facility] MCV Entitic volume (RBC) 88.6 fL Normal 80.0-100.0 [facility] [place] [facility] Platelet mean volume Entitic volume (Bld) 9.9 fL Normal 9.0-12.7 [facility] [place] [facility] Platelets #/vol (Bld) 146 10*3/uL Low 150-400 [facility] [place] [facility] RBC #/vol (Bld) 5.60 10*6/uL Normal 4.20-6.00 [facility] WBC #/vol (Bld) 6.86 10*3/uL Normal 3.70-11.00 [facility] SURGICAL PATHOLOGYon 28-2 019 SURGICAL PATHOLOGY PROCEDURE REPORT Specimen originated from [facility] Specimen #: [id number] Submitting Physician: NARCISO MARINELLI MD SPECIMEN SUBMITTED [...] this sample, and cDNA prepared by reverse pc tech. Multiplex RT-PCR studies were performed using fluorescently [...] developed and its performance characteristics determined by [facility]'s [facility] [place] ([facility]). It has not been cleared or approved by the FDA. [facility] is regulated under CLIA as qualified to perform high-complexity testing. This test is used for clinical purposes. It should not be regarded as investigational or for research. As Reviewed by: Narciso Luong M.D., Ph. D. [facility] [[email or web address] 06/10/2018 Procedure Pathologist: Narciso Luong M.D. Electronic [...] sequencing was performed on the Illumina instrument ([place], [place]). A customized bioinformatic pipeline was used to align the sequencing reads to the reference human genome (GRCh37/hg19). Benign common polymorphisms are not reported. Limitations: Sequence changes outside the analyzed regions, including intronic, noncoding, and splice-site variants, will not be identified by this test. The lower limit of detection of this assay is approximately 1% allele proportion for the JAK2 [id number] single nucleotide variant and approximately 5% allele [...] developed and its performance characteristics determined by [facility] [place] ([facility]). It has not been cleared or approved by the FDA. -[facility] is regulated under CLIA as qualified to perform high-complexity testing. This test is used for clinical purposes. It should not be regarded as investigational or for research. As Reviewed by: Quin Hill M.D. Ph.D. HENRIK/ap [id number] References: Temi HESTER, Syd A, Joshua R, Payal J, Ariella MJ, Johanna Rashid MM, et al. The 2016 revision to the World Health Organization (WHO) classification of myeloid neoplasms and acute leukemia. Blood 2016;127: 2391-405. NCCN Guidelines, Myeloproliferative Neoplasms, Version 2.2018. Patricio K, Leobardo DELUCA. Genomics of Myeloproliferative Neoplasms. J Clin Oncol. 2017 May 20;35(9):947-954. Procedure Pathologist: Quin Hill M.D. Electronic Signature CLINICAL DATA None provided. Date of Report: Date of Procedure: 05/29/2018 Date of Receipt: 05/30/2018 Submitted: NARCISO MARINELLI MD Location: [facility] Diagnostic interpretation performed at [facility], [address] [place] [address]. Normal [facility] [place] [facility] Testosteroneon 05-29-2018 Testosterone mass conc 249 ng/dL Normal 193-824 [facility] [place] [facility] Comment on above: Result Comment: A te stosterone level in the 193-320 ng/dL range with associated clinical symptoms is considered low and may indicate hypogonadism (from RIJ 2010 363:123-135). Results >320 ng/dL are considered normal. Performed By: #### T ESTO ####[facility] [address] [place], [place] [phone] Social History Date Type Detail Facility Start: 04-17-2021 End: 10-17-2022 Tobacco smoking status Never smoked tobacco (finding) [facility] [place] [employer] Tobacco smoking status Never [facility] [place] Sex Assigned At Male [facility] [employer] Vital Signs Date Time Vital Sign Value Performing Clinician Facility 03-19-2023 12:05-0500 Body height 172.72 cm Myrna Isbell Other [facility] Other 03-19-2023 12:05-0500 Body mass index (BMI) [Ratio] 30.62 kg/m2 Myrna Isbell Other [facility] Other 03-19-2023 12:05-0500 Body temperature 98.9 [degF] Myrna Isbell Other [facility] Other 03-19-2023 12:05-0500 Body weight 91.36 kg Myrna Isbell Other [facility] Other 03-19-2023 12:05-0500 Diastolic blood pressure 104 mm[Hg] Myrna Isbell Other [facility] Other 03-19-2023 12:05-0500 Respiratory rate 18 /min Myrna Isbell Other [facility] Other 03-19-2023 12:05-0500 SaO2% (BldA) [Mass fraction] 96 % Myrna Isbell Other [facility] Other 03-19-2023 12:05-0500 Systolic blood pressure 178 mm[Hg] Myrna Isbell Other [facility] Other 03-14-2023 13:10-0500 Body height 172.72 cm Magnolia Igor Other [facility] Other 03-14-2023 13:10-0500 Body mass index (BMI) [Ratio] 30.41 kg/m2 Magnolia Igor Other [facility] Other 03-14-2023 13:10-0500 Body temperature 100.1 [degF] Magnolia Igor Other [facility] Other 03-14-2023 13:10-0500 Body weight 90.72 kg Magnolia Igor Other [facility] Other 03-14-2023 13:10-0500 Diastolic blood pressure 87 mm[Hg] Magnolia Igor Other [facility] Other 03-14-2023 13:10-0500 Respiratory rate 18 /min Magnolia Igor Other [facility] Other 03-14-2023 13:10-0500 SaO2% (BldA) [Mass fraction] 96 % Magnolia Igor Other [facility] Other 03-14-2023 13:10-0500 Systolic blood pressure 190 mm[Hg] Magnolia Igor Other [facility] [employer] Other 10-17-2022 13:35-0400 Blood Pressure Location EWA CARRRY [facility] 10-17-2022 13:35-0400 Diastolic blood pressure 112 mm[Hg] EWA MAXIMILIANO [facility] 10-17-2022 13:35-0400 Heart rate 81 /min EWA MAXIMILIANO [facility] 10-17-2022 13:35-0400 Systolic blood pressure 172 mm[Hg] EWA MAXIMILIANO [facility] 04-16-2022 14:37-0500 Blood Pressure Location Murali RICE [facility] 10-16-2021 14:30-0400 Blood Pressure Location Murali RICE [facility] 10-16-2021 14:30-0400 Diastolic blood pressure 85 mm[Hg] Murali RICE [facility] [place] [employer] 10-16-2021 14:30-0400 Heart rate 67 /min [place] [facility] [place] [employer] 10-16-2021 14:30-0400 Respiratory rate 16 /min [place] 10-16-2021 14:30-0400 Systolic blood pressure 170 mm[Hg] [facility] [place] [employer] Functional Status Date Assessment Result Facility 10-17-2022 Functional Status N/A [facility] 04-16-2022 Functional Status N/A [facility] 10-16-2021 Functional Status N/A [facility] Clinical Notes 10-16-2021 to 03-19-2023 Note Date [...] today 120s/80s, he reports white coat syndrome. [facility] Other 12-14-2023 Evaluation note* Encounter Date Diagnosis [...] (suspected) exposure to covid-19 (ICD-10 - Z20.822) [facility] Other 07-19-2023 Hospital Discharge instructions Patient Education [...] therapy. Follow these instructions at home: Take skfq-tul-wppxtix and prescription medicines only as told by [...] provider. Document Revised: 11/17/2020 Document Reviewed: 11/17/2020 [employer] Patient Education 2022 [employer]. Follow Up Care 08/31/2022 12:38:12 With:EWA VIERA PA-C, URL Address: [address] [place] [address] When: Unknown [facility] 01-16-2023 Hospital Discharge instructions Patient Education 04/16/2022 [...] 06/24/2001 Document Revised: 07/09/2019 Document Reviewed: 02/11/2017 [employer] Patient Education 2019 [employer]. Follow Up Care 10/16/2021 15:07:22 With:SCOTT HOANG, SAMI Wells Address: [address] [place] [address]- When:6 months Comments:PSA & testosterone [facility] 07-18-2022 Hospital Discharge instructions Patient Education 10/16/2021 [...] urethra. Follow these instructions at home: Take hfza-wqm-qcwqtee and prescription medicines only as told by [...] 03/18/2006 Document Revised: 02/10/2019 Document Reviewed: 04/22/2017 [employer] Patient Education 2020 [employer] Follow Up Care 04/17/2021 14:02:48 With:SCOTT HOANG, Murali Blancas, URL Address: [address] [place] [address]- When:3 months Comments:Testosterone level [facility] Evaluation + Plan note Future Appointments Appointment Date:04/16/2022 02:15:00 PM Scheduled Provider:Murali SCHRADER MD Location:[facility] Appointment Type:URO Office Visit Diagnostic Tests Pending * Testosterone Level Total 10/16/21 [facility] [employer] Evaluation + Plan note Future Appointments Appointment Date:10/15/2022 02:15:00 PM Scheduled Provider:Murali SCHRADER MD Location:[facility] Appointment Type:URO Office Visit Diagnostic Tests Pending * PSA Total 04/16/22 * Testosterone Level Total 04/16/22 [facility] [employer] Evaluation + Plan note Future Appointments Appointment Date:10/23/2023 01:20:00 PM Scheduled Provider:EWA VIERA PA-C Location:[facility] Appointment Type:URO Office Visit Diagnostic Tests Pending * PSA Total 08/31/23 * Testosterone Level Total 10/17/22 * Hemoglobin and Hematocrit 08/31/23 * Hepatic Function Panel 08/31/23 * Lipid Panel 08/31/23 [facility] [place] evaluation [facility]No [facility] [employer] Other History general Narrative - Reported* Type Description Date Medical History glaucoma Medical History insomnia Medical History GERD (gastroesophageal reflux di sease) Medical History Hypothyroidism Surgical History tonsillectomy Surgical History appendectomy Surgical History carpal tunnel release right Hospitalization History see above [facility] Other Hospital course Narrative No data available for this section [facility] Progress note No data available for this section [facility] [place] [employer] Summary Purpose Family History No Family History Records FoundNo Family History Records FoundNo Family History Records Found Advance Directives No Advanced Directives Records FoundNo Advanced Directives Records FoundNo Advanced Directives Records Found Additional Source Comments (unrecognized sect ion and content) No Status Records FoundNo Status Records FoundNo Status Records Found INFORMATION SOURCE (unrecogn ized section and content) DATE CREATED AUTHOR 06/20/2018 [facility] [place] [facility] DATE CREATED AUTHOR AUTHOR'S ORGANIZ ATION 05/29/2022 [facility] DATE CREATED AUTHOR AUTHOR'S ORGANIZ ATION 07/12/2023 Adian Solomon [facility] Team (unrecognized sect ion and content) Personnel Name: Frederick Gonzalez DO Address: [address] [place] [address] Personnel Name: Frederick Gonzalez DO Address: Address: [address] [place] [address] Personnel Name: Frederick Gonzalez DO Address: Address: [address] [place] [address] REASON FOR VISIT (unrecogniz ed section and [...] BE BASED ON THE PRIMARY CLINICAL RECORDS. [facility]. provides no warranty or guarantee of the accuracy or completeness of information in this document.
[2023-09-07 10:20] LABS: Hematocrit 50.5 % (42.0-54.0); Hemoglobin 16.4 g/dL (14.0-18.0)
[2023-09-07 11:20] LABS: Prostate Specific Antigen Dx 1.01 ng/mL (<=4.00)
[2023-09-07 14:52] LABS: Alanine Aminotransferase 45 U/L (16-63); Albumin Level 3.8 g/dL (3.4-5.0); Alkaline Phosphatase 78 U/L (46-116); Aspartate Amino Transferase 27 U/L (15-37); Bilirubin Direct 0.1 mg/dL (0.0-0.2); Bilirubin Total 0.6 mg/dL (0.2-1.0); Chol HDL Ratio 4.5; Cholesterol 166 mg/dL (<=200); Globulin 3.9 g/dL; HDL Cholesterol 37 mg/dL (40-60); Total Protein 7.7 g/dL (6.4-8.2); Triglycerides 58 mg/dL (<=150); VLDL CHOLESTEROL 11.6 mg/dL
[2023-09-08 08:10] LABS: Testosterone 353 ng/dL (264-916)
== END 2023-09-07 09:10 | disposition home or self-care (01) ==
LOC: LAB 09:11
PROVIDERS: Visit Provider Physician Assistant
DX: N40.1 Benign prostatic hyperplasia with lower urinary tract symptoms (principal); E29.1 Testicular hypofunction; R31.21 Asymptomatic microscopic hematuria
CPT/HCPCS: 36415; 80061; 80076; 84153; 84403; 85014; 85018

== ENCOUNTER 2023-11-02 09:27 | Emergency (ER) | payer MEDICARE, OTHER, SELFPAY ==
[2023-11-02 09:34] VITALS: PULSE 85; TEMP 36.8; O2SAT 96; BMI 28.9
[2023-11-02 09:39] VITALS: BP 178/104
--- NOTE | 2023-11-02 09:49 | ED.WOUNDLAC1 ---
HPI - Wound/Laceration General Chief Complaint: Wound/Laceration Stated Complaint: WOUND CHECK, FACE/MOUTH Time Seen by Provider: 11/02/23 09:28 Source: patient Mode of arrival: walk-in Limitations: no limitations History of Present Illness HPI narrative: 78 old male presents for a wound on his right upper lip. He had a small scab and when he was shaving he nicked off the scab and it started bleeding and he can get it to stop. He is not on blood thinners. He has never had any bleeding issues. He put pressure on it at home. Related Data Allergies Allergy/AdvReac Type Severity Reaction Status Date / Time No Known Drug Allergies Allergy Verified 11/02/23 09:36 Review of Systems ROS Narrative A ten point review of systems is negative except as noted above. Exam Narrative Exam Narrative: Nurses note and vital signs reviewed and patient is not hypoxic. General: The patient appears well and in no apparent distress. Patient is resting comfortably on cart. He is holding pressure on his upper lip when I walked into the room. Skin: Warm, dry, no pallor noted. There is no rash noted. No bruises or petechia. Head: Normocephalic, atraumatic Eye: Normal conjunctiva, no drainage Ears, Nose, Mouth, and Throat: oral mucosa is moist. Nares patent. He has a pinhole sized wound on the right upper lip. There is no active bleeding. Cardiovascular: Regular Rate and Rhythm Respiratory: Patient is in no distress, no accessory muscle use, lungs are clear to auscultation, no wheezing, rales or rhonchi Back: non-tender GI: Soft and nontender Musculoskeletal: The patient has no evidence of calf tenderness, no pitting edema, symmetrical pulses noted bilaterally Neurological: Awake and alert Psychiatric: Cooperative Constitutional Vital Signs, click to edit/add: Last Vital Signs Temp 98.2 F 11/02/23 09:34 Pulse 71 11/02/23 10:27 Resp 18 11/02/23 10:27 BP 174/94 H 11/02/23 10:27 Pulse Ox 95 11/02/23 10:27 O2 Del Method Room Air 11/02/23 09:34 Course Vital Signs Vital signs: Vital Signs Temperature 98.2 F 11/02/23 09:34 Pulse Rate 85 11/02/23 09:34 Respiratory Rate 18 11/02/23 09:34 Pulse Oximetry 96 11/02/23 09:34 Oxygen Delivery Method Room Air 11/02/23 09:34 Temperature 98.2 F 11/02/23 09:34 Pulse Rate 71 11/02/23 10:27 Respiratory Rate 18 11/02/23 10:27 Blood Pressure 174/94 H 11/02/23 10:27 Pulse Oximetry 95 11/02/23 10:27 Oxygen Delivery Method Room Air 11/02/23 09:34 MDM - Wound/Laceration MDM Narrative Medical decision making narrative: Gelfoam and pressure were applied and the bleeding has now stopped and he is able to be discharged. Findings were discussed with the patient. Differential Diagnosis Differential diagnosis: Likely laceration and avulsion of skin Discharge Plan Discharge Stand Alone Forms: Portal Instructions Chief Complaint: Wound/Laceration Clinical Impression: Laceration Patient Disposition: Home, Self-Care Time of Disposition Decision: 10:30 Condition: Good Mode of Transportation: Private Vehicle Print Language: [place] Instructions: Laceration Without Closure (ED) Referrals: Physician,Non-Staff, MD [Primary Care Provider] - 1 week
--- OUTSIDE RECORDS SUMMARY | 2023-11-02 09:55 | XMS_ITS | CCD ---
Author Organization [facility] Care Team Providers Care Homoeopath Name Role Phone NARCISO MARINELLI Attending Unavailable RICE, MURALI Blancas Referring Unavailable FANNING, NARCISO Zapien Referring Unavailable FANLUISA, NARCISO Zapien Attending Unavailable RUPERTO BLAS Referring Unavailab Frederick Villafuerte Primary Care Physician [phone] LISA, DR HARMAN Primary Care Unavailable RICE, DR [...] Unavailable RICE, DR MURALI Blancas Admitting Unavailable IgorMagnolia pinzon Unavailable Myrna Isbell Unavailable EWA VIERA Attending Unavailable EWA VIERA Attending Unavailable MAXIMILIANO, EWA Zapien Attending Unavailable EWA VIERA Admitting Unavailable Allergies Allergy Classification Reported Allergen(s) Allergy Type Date of Onset Reaction(s) Facility (1 source) No Known Medication Allergies; 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: [No Known Medication Allergies] Propensity to adverse reactions (disorder) [facility] Repository Medications Current Medications Medication Drug Class(es) [...] 10/10/20 Status: Ordered take 1 tablet by [facility] once daily in the morning Levothyroxine Sodium 75 MCG 1 tablet in the morning on an empty stomach Orally Once a day Active methylPREDNISolone 4 mg oral tablet (4 sources) Corticosteroid Start: 11-01-2023 take 1 tablet by mouth once Methylprednisolone (Medrol (Jean-Claude)) 4 mg tablets,dose pack Active 0 PO per package directions November 01, 2023 12:00am PO PER PKG DIR Start: 12-31-2019 Medrol 4 MG as directed Orally for 6 days Dec, Not-Taking/PRN omeprazole 10 mg delayed release oral capsule (8 sources) Proton Pump Inhibitor Start: 11-01-2023 take 10 mg by mouth once daily Omeprazole Active 10 MG PO Daily November 01, 2023 12:00am Start: 12-29-2018 take 1 mg by mouth once daily Prilosec 10 mg Cap-EC mg cap(s), Oral, Daily, Refills(s) 0 Start Date: 12/29/18 Status: Ordered take 1 capsule by [facility] once daily PriLOSEC 10 MG 1 capsule 30 minutes before morning meal Orally Once a day Active tadalafil 5 mg oral tablet (4 sources) Phosphodiesterase 5 Inhibitor Start: 10-23-2018 take 1 tablet by mouth once daily Cialis 5 mg oral tablet 5 mg = 1 tab(s), Oral, Daily Start Date: 10/23/18 Status: Ordered Temazepam (5 sources) Benzodiazepine Start: 12-25-2018 temazepam 30 m g Start Date: 12/25/18 Status: Ordered Temazepam Not-Ta radha/PRN testosterone cypionate 100 mg/ml injectable solution (7 sources) Androgen Start: 11-01-2023 Testosterone C ypionate Active 50 MG IM .Q5days November 01, 2023 12:00am Start: 09-17-2023 testosterone c ypionate 100 mg/mL intramuscular solution 50 mg, IntraMuscular, q5day, # 10 mL, Refills(s) 5, Pharmacy: [id number], 172, cm, 10/17/22 13:50:00 EDT, Height/Length Dosing, 95, kg, 10/17/22 13:50:00 EDT, Weight Dosing Start Date: 09/17/23 Status: Ordered Start: 10-17-2022 testosterone c ypionate 100 mg/mL intramuscular solution 50 mg, IntraMuscular, q5day, # 10 mL, Refills(s) 5, Pharmacy: [id number], 172, cm, 10/17/22 13:50:00 EDT, Height/Length Dosing, 95, kg, 10/17/22 13:50:00 EDT, Weight Dosing Start Date: 10/17/22 Status: Ordered Start: 01-22-2022 testosterone c ypionate 100 mg/mL intramuscular solution 50 mg, IntraMuscular, q5day, # 10 mL, Refills(s) 3, Pharmacy: [facility] #[id number], 172, cm, 10/16/21 14:53:00 EDT, Height/Length Dosing, 95, kg, 10/16/21 14:53:00 EDT, Weight Dosing Start Date: 01/22/22 Status: Ordered Start: 10-16-2021 testosterone c ypionate 100 mg/mL intramuscular solution 50 mg, IntraMuscular, q7day, # 10 mL, Refills(s) 3, Pharmacy: [facility] #[id number], 172, cm, 10/16/21 14:53:00 EDT, Height/Length Dosing, 95, kg, 10/16/21 14:53:00 EDT, Weight Dosing Start Date: 10/16/21 Status: Ordered Start: 09-28-2019 Depo-Testoster one 50 mg, IntraMuscular Start Date: 09/28/19 Status: Ordered Testosterone Cypionate 50 MG/ML (3 sources) Testosterone Cypionate 50 MG/ML as directed Injection Active Timolol (8 sources) beta-Adrenergic Lala Start: 11-01-2023 take 1 drop(s) into the eye(s) once daily Timolol Active 1 DROPS EYE-BOTH Daily November 01, 2023 12:00am Start: 10-10-2020 Timolol GFS 0. 5% Gel drop(s), Daily, Refill(s) 0 Start Date: 10/10/20 Status: Ordered Start: 10-10-2020 Timolol GFS 0. 5% Gel drop(s), Daily, Refill(s) 0 Start Date: 10/10/20 Status: Ordered Timolol Maleate Active valsartan 40 mg oral tablet (8 sources) Angiotensin 2 Receptor Lala Start: 11-01-2023 take 40 mg by mouth once daily Valsartan Active 40 MG PO Daily November 01, 2023 12:00am Start: 10-10-2020 take 1 mg by mouth once daily valsartan 80 mg Tab mg tab(s), Oral, Daily, Refills(s) 0 Start Date: 10/10/20 Status: Ordered take 1 tablet by bryanna th every twelve hours Valsartan 40 MG 1 tablet Orally Twice a day Active zolpidem tartrate 12.5 mg extended release oral tablet (6 sources) gamma-Aminobutyric Acid-ergic Agonist Start: 11-01-2023 Zolpidem Active MG PO November 01, 2023 12:00am Start: 10-17-2022 take 1 tablet by bryanna th once daily at bedtime as needed for sleep Ambien CR 12.5 mg Tab-ER 12.5 mg = 1 tab(s), Oral, Once a day (at bedtime), PRN for sleep Start Date: 10/17/22 Status: Ordered Completed/Discontinued Medications Medication Drug Class(es) Dates Sig (Normalized) Sig (Original) Triamcinolone (3 sources) Corticosteroid Start: 12-31-2019 KENALOG - 10 m g Dec, 40 mg Problems Active Problems Problem Classification Problem Date Documented Da te Episodic/Chronic Coagulation and hemorrhagic disorders (1 source) Thrombocytopenia, unspecified; 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: [THROMBOCYTOPENIA UNSPECIFIED] Onset: 09-12-2021 Chronic Essential hypertension (1 source) Essential (primary) hypertension; 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: [ESSENTIAL PRIMARY HYPERTENSION] Onset: 09-12-2021 Chronic Genitourinary symptoms and ill-defined conditions (6 sources) Delay when starting to pass urine; 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: [Microscopic hematuria] Onset: 10-17-2022 10-23-2018 Episodic Hyperplasia of prostate (16 sources) Benign prostatic hypertrophy with outflow obstruction; 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: [Benign prostatic hyperplasia with lower urinary tract symptoms] Onset: 09-01-2021 Chronic Other circulatory disease (1 source) Elevated blood-pressure reading, without diagnosis of hypertension Episodic Other endocrine disorders (4 sources) Testicular hypofunction; 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: [Testicular hypofunction] Onset: 10-16-2021 Chronic Other endocrine disorders (4 sources) Male hypogonadism 10-23-2018 Chronic Other endocrine disorders (5 sources) Testicular hypofunction; 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: [TESTICULAR HYPOFUNCTION] Onset: 09-07-2021 Chronic Other hematologic conditions (1 source) Secondary polycythemia; 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: [Secondary polycythemia] Onset: 05-29-2018 Episodic Other male genital disorders (4 sources) Impotence 10-23-2018 Chronic Other nutritional; endocrine; and metabolic disorders (4 sources) Body mass index 30+ - obesity 04-04-2020 Chronic Other upper respiratory infections (3 sources) Acute pharyngitis, unspecified; 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: [Acute pansinusitis, unspecified] Episodic Poisoning by nonmedicinal substances (2 sources) Bee sting; 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: [Toxic effect of venom of bees, accidental (unintentional), initial encounter] 11-01-2023 Episodic Residual codes; unclassified (4 sources) Sleep apnea 10-23-2018 Chronic Residual codes; unclassified (4 sources) Insomnia 10-23-2018 Episodic Thyroid disorders (1 source) Hypothyroidism, unspecified; 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: [HYPOTHYROIDISM UNSPECIFIED] Onset: 09-12-2021 Chronic Unclassified (4 sources) Asymptomatic microscopic hematuria 04-04-2020 Unclassified (4 sources) Drug therapy finding 10-23-2018 Past or Other Problems Problem Classification Problem Date Documented Da te Episodic/Chronic Unclassified (1 source) Contact with and (suspected) exposure to covid-19 Z20.822 Results Test Name Value Interpretation Reference Range Facility Ambulatory Visit Summaryon 0 10-15-2023 Ambulatory Visit Summary Ambulatory Visit Summary LAMONT LOWERY :1945 Visit Date:09/27/2018 Ambulatory Visit Instructions Your Diagnosis Male hypogonadism Abnormal LFTs (liver function tests) This Is Your Medications List omeprazole (Prilosec 10 mg Cap-EC) tadalafil (Cialis 5 mg oral tablet) testosterone (testosterone cypionate 100 mg/mL intramuscular solution) timolol ophthalmic (Timolol GFS 0.5% Gel) valsartan (valsartan 80 mg Tab) zolpidem (Ambien CR 12.5 mg Tab-ER) [Image Removed: STOP]Stop taking these medications aspirin lisinopril lovastatin timolol Procedures Performed Appendectomy, Carpal tunnel release. Medications What How Much When Why Instructions Changed omeprazole (Prilosec 10 mg Cap-EC) By Mouth Every day Changed testosterone (testosterone cypionate 100 mg/ mL intramuscular solution) 50 Milligram Intramuscular Every 5 days Male hypogonadism Pickup at [facility] Unchanged tadalafil (Cialis 5 mg oral tablet) 1 Tablets By Mouth Every day Unchanged timolol ophthalmic (Timolol GFS 0.5% Gel) Every day Unchanged valsartan (valsartan 80 mg Tab) By Mouth Every day Unchanged zolpidem (Ambien CR 12.5 mg Tab-ER) 1 Tablets By Mouth Once a day (at bedtime) as needed for for sleep Pharmacy Information [facility]: [address] [place], [place] [id number] [phone] What When Comments Stop Taking aspirin Stop Taking lisinopril Stop Taking lovastatin Stop Taking timolol Allergies No Known Medication Allergies Problems Ongoing - Any problem that you are currently receiving treatment for. Anticoagulated Asymptomatic microscopic hematuria BMI 30.0-30.9,adult BPH with urinary obstruction Male hypogonadism Male impotence Urinary hesitancy Historical - Any problem that you are no longer receiving treatment for. Insomnia Sleep apnea Patient Survey You may receive a survey via text or e-mail asking about your office visit. Please share your experience with us by completing your survey. We appreciate your feedback and thank you for choosing us for your care. Normal [facility] Urology Office/Clinic Noteon 10-15-2023 Urology Office/Clinic Note Urology Office/Clinic Note Chief Complaint 1yr T Level HPI Staff 78 year old male patient presents today for a year follow up with labs. Previous DX:BPH with Urinary Obstruction and Male Hypogonadism. *Cialis 5mg qd Pt is taking 50mg q5 days, pt gives himself the injection. Testosterone: 11/29/22: 561 03/04/23- 530 06/14/23- 524 09/07/23- 353 PSA: 09/08/22- 0.96. 09/07/23- 1.01 HGB on 11/03/22: 17.5 09/07/23- 16.4 HCT: 11/03/22- 52 09/07/23- 50.5 Lipids done 09/07/23 as well Has been donating blood q65 days or so. Denies complications with injections. Takes a while for stream to start, but no other complaints voiding. History of Present Illness staff HPI reviewed and agree. Review of Systems PHQ Score Initial Depression Screen Score: 0 SCORE no fever, chills, malaise, myalgia. no rash/lesions. no chest pain, palpitations, or SOB. no abdominal pain, nausea, vomiting. no unilateral calf swelling, redness, pain Physical Exam Vitals & Measurements HR: 81(Peripheral) RR: 16 BP: 162/90 HT: 68 in HT: 172 cm WT: 88.5 kg WT: 194.7 lb BMI: 29.91 General: nontoxic, NAD Mouth: moist mucosa Lungs: normal respiratory effort Cardio: regular rate, good distal perfusion Abdomen: nondistended, no suprapubic distention or tenderness, no CVA tenderness Neurologic: Grossly normal Skin: No rashes or suspicious lesions Assessment/Plan Prior RWR pt 1. Male hypogonadism (E29.1: Testicular hypofunction) Testosterone: 01/26/22 - 740 09/01/21 - 328 05/24/22 - 749 09/08/22 - 322 11/29/22 - 561 03/04/23 - 530 06/14/23 - 524 09/07/23 - 353 CBC: 11/03/22 - Hgb 17.5, Hct 52 09/07/23 - Hgb 16.4, Hct 50.5 PSA: 09/01/21 - 1.04 09/08/22 - 0.96 09/07/23 - 1.01 pt gets his level drawn the day before he is due for next injection. he's been doing it this way for years w RWR and does not wish to change anything at this point. [1] On testosterone IM 50mg every 5 days, gives himself the injections. Has been donating blood q65 days, most recently gave blood 10/04/23, hgb was 17.3. Reviewed labs, all wnl. No indication for dosage changes. States he feels current energy level is slightly lower but has been on TRT for many years. Pt inquired about Jatenzo as this would allow for more stability of sxs. Pt states he will call his insurance to see if this is covered. -F/u in 1 year w/ PSA, LFTs, Lipids, H&H, total T level -Cont Testosterone 50mg q5days and donating blood q2mos -Call if wishes to switch to Jatenzo and if able to obtain insurance coverage 2. BPH with urinary obstruction (N40.1: Benign prostatic hyperplasia with lower urinary tract symptoms) Taking Cialis 5 mg qd. Has some hesitancy and occasional urgency. Pt is taking Cialis 5 mg qd and is highly satisfiedwith overall symptom control. Pt is experiencing noside effects. IPSS 7 QOL 1 We discussed current dose and optional changes: adding an additional agent such as finasteride/dutasteride I discussed with the patient the different surgical treatment options for bladder outlet obstruction including TURP, Rezum, and Urolift. The patient prefers to continue the BPH medications with no changes at this time. -Cont Cialis 5mg qd 3. Asymptomatic microscopic hematuria (R31.21: Asymptomatic microscopic hematuria) Micro UA 10/27/22 - 0-3 RBC. Neg cx. UA today negative for blood (trace-intact). -Cont sx monitoring and routine UAs Follow-up With When Contact Information MAXIMILIANO MAIER, EWA Zapien, URL [address] [facility] [place] [address] [phone] Additional Instructions: 1 year w/ PSA, LFTs, Lipids, H&H, total T level Patient Education Hypogonadism, Male Documentation recorded by the ava Mason accurately reflects the services(s) I performed and decisions made by me. Authenticated by Ewa Viera PA-C on 10/15/2023 13:46:14. IChhaya, personally scribed for Ewa Viera PA-C on 10/15/2023 13:42:41. . Problem List/Past Medical History Ongoing Anticoagulated Asymptomatic microscopic hematuria BMI 30.0-30.9,adult BPH with urinary obstruction Male hypogonadism Male impotence Urinary hesitancy Historical Insomnia Sleep apnea Procedure/Surgical History Appendectomy, Carpal tunnel release. Medications Ambien CR 12.5 mg Tab-ER, 12.5 mg= 1 tab(s), Oral, Once a day (at bedtime), PRN Cialis 5 mg oral tablet, 5 mg= 1 tab(s), Oral, Daily Prilosec 10 mg Cap-EC, Oral, Daily testosterone cypionate 100 mg/mL intramuscular solution, 50 mg, IntraMuscular, q5day, 5 refills Timolol GFS 0.5% Gel, Daily valsartan 80 mg Tab, Oral, Daily Allergies No Known Medication Allergies Social History Alcohol Current, 1-2 times per month, 10/23/2018 Substance Abuse Past, Heavy steroid use, 10/23/2018 Tobacco Never (less than 100 in lifetime) Tobacco Use:. Never Smokeless Tobacco Use:., 10/15/2023 Family History Family (more content not included)... Normal [facility] Comment on above: Result Comment: Elec tronically Signed By: EWA VIERA PA-C\.br\Date and Time Signed: 10/15/23 13:49 EDT\.br\Electronically Co-Signed By: Chhaya Mason\.br\Date and Time Co-Signed: 10/15/23 13:43 EDT [facility] 09-12-2023 Lab Reports [id number]#1.00T IFF Normal [facility] 06-17-2023 Lab Reports [id number]#1.00T IFF Normal [facility] 03-18-2023 Lab Reports [id number]#1.00T IFF Normal [facility] COVID + FLU Quick Testingon 03-14-2023 SARS-CoV-2 (COVID-19) RNA STEFF+probe Ql (Unsp spec) Negative [employer]gg Other COVID + FLU Quick Testing Negative [employer] Other Quick Strepon 03-14-2023 S. pyogenes Org specific cx Ql (Throat) Negative [employer] [facility] Easy Tempo Other Quick Strep [employer] [facility] [employer] Other [facility] 12-03-2022 Lab Reports [id number]#1.00C D:[address] [facility] 11-27-2022 Lab Reports [id number]#1.00C D:[address] [facility] C Urineon 10-19-2022 Bacteria identified Cx Nom [...] Locations R1: This test was performed at: [facility], [address] [place] [address], [address] [place] [address], [facility] Comment on above: Performed By: #### 2 [id number] ####[facility] [address] [place] [address] Lab Report[facility] 10-19-2022 Lab Reports [id number] CD:[address] [facility] Screenson 10-19-2022 Screens [id number] CD:127 [facility] Ambulatory Visit Summaryon 0 10-17-2022 Ambulatory Visit Summary LAMONT LOWERY :1945 MRN: Visit Date:10/17/2022 Ambulatory Visit Instructions Your Diagnosis BPH with urinary obstruction Male hypogonadism Asymptomatic microscopic hematuria Tests Performed Urnls Dip Stick Auto w/o Microscopy POC [id number] Your Care Team Attending Physician - EWA [...] EWA VIERA PA-C Where: [facility] Patient Educationon 10-18-19 Patient Education Urology Hypogonadism, Male Male hypogonadism [...] Follow these instructions at home: ? Take eejh-sto-oijkeqm and prescription medicines only as told by [...] 11/17/2020 Document (more content not included)... Normal [facility] Urinalysison 10-17-2022 Bilirubin Ql (U) Negative Normal Negative [facility] Comment on above: Performed By: #### 1 [id number] ####[facility] [address] [place] [address] Clarity (U) CLEAR Normal Clear [facility] Comment on above: Performed By: #### 1 [id number] ####[facility] [address] [place] [address] Color (U) YELLOW Normal Yellow [facility] Comment on above: Performed By: #### 1 [id number] ####[facility] [address] [place] [address] Epithelial cells.squamous LM.HPF (Urine sed) [#/Area] 0-2 Normal 0-2 [facility] Comment on above: Performed By: #### 1 [id number] ####[address] [address] Glucose Test strip (U) [Mass/Vol] Negative Normal Negative [facility] Comment on above: Performed By: #### 1 [id number] ####[address] [address] Hemoglobin Ql (U) Negative Normal Negative [facility] Comment on above: Performed By: #### 1 [id number] ####[address] [address] Ketones (U) [Mass/Vol] Negative Normal Negative [facility] Comment on above: Performed By: #### 1 [id number] ####[address] [address] Gravette.plasma/Lit hium.RBC (Bld) [Mass ratio] 0-3 Normal 0-3 [facility] Comment on above: Performed By: #### 1 [id number] ####[address] [address] Nitrite Ql (U) Negative Normal Negative [facility] Comment on above: Performed By: #### 1 [id number] ####[address] [address] pH (U) 6.0 [pH] Invalid Interpretation Code 5.0-9.0 [facility] Comment on above: Performed By: #### 1 [id number] ####[address] [address] Protein (U) [Mass/Vol] Negative Normal Negative [facility] Comment on above: Performed By: #### 1 [id number] ####[address] [address] Specific gravity (U) [Rel density] 1.015 Invalid Interpretation Code 1.005-1.030 [facility] Comment on above: Performed By: #### 1 [id number] ####[address] [address] Type of Urine collection method Random Urine Normal [facility] Comment on above: Performed By: #### 1 [id number] ####[facility] [address] [place] [address] Urobilinogen Qn (U) 0.2 {Elizabeth'U}/dL Normal 0.0-1.0 [facility] Comment on above: Performed By: #### 1 [id number] ####[facility] [address] [place] [address] WBC Auto Ql (U) Negative Normal Negative [facility] Comment on above: Performed By: #### 1 [id number] ####[facility] [address] [place] [address] WBC LM.HPF (Urine sed) [#/Area] 0-5 Normal 0-5 [facility] Comment on above: Performed By: #### 1 [id number] ####[facility] [address] [place] [address] Urology Office/Clinic Noteon 10-17-2022 Urology Office/Clinic Note [...] doing it this way for years w [facility] and does not wish to change anything [...] give him a few upcoming dates from [employer] website of local blood drives. Pt will [...] When Contact Information EWA VIERA PA-C, URL [address] [place] [address] Additional Instructions: 1 yr w multiple labs Patient Education Hypogonadism, Male Documentation recorded by the ava Munguia accurately reflects the services(s) I performed [...] release. Medication (more content not included)... Normal [facility] Comment on above: Result Comment: Elec tronically Signed By: EWA VIERA PA-C\.br\Date and Time Signed: 07/19/23 16:19 EDT TESTOSTERONE, TOTALon 2022 Testosterone [Mass/Vol] 749 ng/dL Normal 264-916 [facility] Comment on above: Result Comment: Adul t male reference interval is based on a population of healthy nonobese males (BMI <30) between 19 and 39 years old. Abel, et.al. JCEM 2017,102;6459-6855. PMID: 39866470. Performed By: #### T ESTTOT #### [facility] [address] [place] [address] Dr. Lazaro Sam TESTOSTERONE, TOTALon 2021 Testosterone [Mass/Vol] 740 ng/dL Normal 264-916 [facility] Comment on above: Result Comment: Adul t male reference interval is based on a population of healthy nonobese males (BMI <30) between 19 and 39 years old. Abel, et.al. JCEM 2017,102;3168-0748. PMID: [id number]. Performed By: #### T ESTTOT #### [facility] [address] [place] [address] Dr. Lazaro Sam CBC AUTO DIFFon 09-08-2021 BASO # 0.0 103/ul Normal 0.0-0.1 [facility] Comment on above: Performed By: #### C BC #### [facility] [address] [place] [address] Dr. Lazaro Sam Basophils/100 WBC (Bld) 0.4 % Normal 0.2-2.0 [facility] Comment on above: Performed By: #### C BC #### [facility] [address] [place] [address] Dr. Lazaro Sam EO # 0.1 103/ul Normal 0.0-0.7 [facility] Comment on above: Performed By: #### C BC #### [facility] [address] [place] [address] Dr. Lazaro Sam Eosinophils/100 WBC (Bld) 0.6 % Critically low 0.9-7.0 [facility] Comment on above: Performed By: #### C BC #### [facility] [address] [place] [address] Dr. Lazaro Sam Erythrocyte distribution width (RBC) [Ratio] 13.7 % Normal 11.0-15.0 [facility] Comment on above: Performed By: #### C BC #### [facility] [address] [place] [address] Dr. Lazaro Sam Hematocrit (Bld) [Volume fraction] 52.4 % Normal 42.0-54.0 [facility] Comment on above: Performed By: #### C BC #### [facility] [address] [place] [address] Dr. Lazaro Sam Hemoglobin (Bld) [Mass/Vol] 17.3 g/dL Normal 14.0-18.0 [facility] Comment on above: Performed By: #### C BC #### [facility] [address] [place] [address] Dr. Lazaro Sam IG # 0.03 10e3/ul Normal 0.00-0.03 [facility] Comment on above: Performed By: #### C BC #### [facility] [address] [place] [address] Dr. Lazaro Sam IG % 0.4 % Normal 0.0-0.5 [facility] Comment on above: Performed By: #### C BC #### [facility] [address] [place] [address] Dr. Lazaro Sam LYMPH # 1.5 103/ul Normal 1.2-3.8 [facility] Comment on above: Performed By: #### C BC #### [facility] [address] [place] [address] Dr. Lazaro aSm Lymphocytes/100 WBC (Bld) 18.7 % Critically low 20.5-60.0 [facility] Comment on above: Performed By: #### C BC #### [facility] [address] [place] [address] Dr. Lazaro Sam MANUAL DIFF REQ NO Normal [facility] Comment on above: Performed By: #### C BC #### [facility] [address] [place] [address] Dr. Lazaro Sam MCH (RBC) [Entitic mass] 29.7 pg Normal 25.9-34.0 [facility] Comment on above: Performed By: #### C BC #### [facility] [address] [place] [address] Dr. Lazaro Sam MCHC (RBC) [Mass/Vol] 33.0 g/dL Normal 29.9-35.2 [facility] Comment on above: Performed By: #### C BC #### [facility] [address] [place] [address] Dr. Lazaro Sam MCV (RBC) [Entitic vol] 90.0 fL Normal 80.0-94.0 [facility] Comment on above: Performed By: #### C BC #### [facility] [address] [place] [address] Dr. Lazaro Sam MONO # 0.6 103/ul Normal 0.3-0.8 [facility] Comment on above: Performed By: #### C BC #### [facility] [address] [place] [address] Dr. Lazaro Sam Monocytes/100 WBC (Bld) 7.7 % Normal 1.7-12.0 [facility] Comment on above: Performed By: #### C BC #### [facility] [address] [place] [address] Dr. Lazaro Sam NEUT # 5.8 103/ul Normal 1.4-6.5 [facility] Comment on above: Performed By: #### C BC #### [facility] [address] [place] [address] Dr. Lazaro Sam Neutrophils/100 WBC (Bld) 72.2 % Normal 43.0-75.0 [facility] Comment on above: Performed By: #### C BC #### [facility] [address] [place] [address] Dr. Lazaro Sam Platelet mean volume (Bld) [Entitic vol] 9.1 fL Critically low 9.5-13.5 [facility] Comment on above: Performed By: #### C BC #### [facility] [address] [place] [address] Dr. Lazaro Sam PLT 162 103/ul Normal 150-450 [facility] Comment on above: Performed By: #### C BC #### [facility] [address] [place] [address] Dr. Lazaro Sam RBC 5.82 106/ul Normal 4.70-6.10 [facility] Comment on above: Performed By: #### C BC #### [facility] [address] [place] [address] Dr. Lazaro Sam WBC 8.1 103/ul Normal 4.0-11.0 [facility] Comment on above: Performed By: #### C BC #### [facility] [address] [place] [address] Dr. Lazaro Sam PROF 14(COMP METB)on 022 Albumin [Mass/Vol] 3.7 g/dL Normal 3.4-5.0 [facility] Comment on above: Performed By: #### C MP, TSH #### [facility] [address] [place] [address] Dr. Lazaro Sam Albumin/Globulin [Mass ratio] 0.9 {ratio} Normal [facility] Comment on above: Performed By: #### C MP, TSH #### [facility] [address] [place] [address] Dr. Lazaro Sam ALP [Catalytic activity/Vol] 72 U/L Normal 46-116 [facility] Comment on above: Performed By: #### C MP, TSH #### [facility] [address] [place] [address] Dr. Lazaro Sam ALT [Catalytic activity/Vol] 42 U/L Normal 16-63 [facility] Comment on above: Performed By: #### C MP, TSH #### [facility] [address] [place] [address] Dr. Lazaro Sam Anion gap [Moles/Vol] 13.4 mmol/L Normal [facility] Comment on above: Performed By: #### C MP, TSH #### [facility] [address] [place] [address] Dr. Lazaro Sam AST [Catalytic activity/Vol] 22 U/L Normal 15-37 [facility] Comment on above: Performed By: #### C MP, TSH #### [facility] [address] [place] [address] Dr. Lazaro Sam Bilirubin [Mass/Vol] 0.6 mg/dL Normal 0.2-1.0 [facility] Comment on above: Performed By: #### C MP, TSH #### [facility] [address] [place] [address] Dr. Lazaro Sma Calcium [Mass/Vol] 8.8 mg/dL Normal 8.5-10.1 [facility] Comment on above: Performed By: #### C MP, TSH #### [facility] [address] [place] [address] Dr. Lazaro Sam Chloride [Moles/Vol] 104 mmol/L Normal 98-107 [facility] Comment on above: Performed By: #### C MP, TSH #### [facility] [address] [place] [address] Dr. Lazaro Sam CO2 [Moles/Vol] 26.5 mmol/L Normal 21.0-32.0 [facility] Comment on above: Performed By: #### C MP, TSH #### [facility] [address] [place] [address] Dr. Lazaro Sam Creatinine [Mass/Vol] 1.30 mg/dL Normal 0.70-1.30 [facility] Comment on above: Performed By: #### C MP, TSH #### [facility] [address] [place] [address] Dr. Lazaro Sam EGFR-AF ZIMBABWEAN >60 Normal >=60 [facility] Comment on above: Performed By: #### C MP, TSH #### [facility] [address] [place] [address] Dr. Lazaro Sam EGFR-NON AF ZIMBABWEAN 54 mL/min/1.73m2 Critically low >=60 [facility] Comment on above: Performed By: #### C MP, TSH #### [facility] [address] [place] [address] Dr. Lazaro Sam Globulin (S) [Mass/Vol] 3.9 g/dL Normal [facility] Comment on above: Performed By: #### C MP, TSH #### [facility] [address] [place] [address] Dr. Lazaro Sam Glucose [Mass/Vol] 117 mg/dL Critically high 74-106 [facility] Comment on above: Performed By: #### C MP, TSH #### [facility] [address] [place] [address] Dr. Lazaro Sam Potassium [Moles/Vol] 3.9 mmol/L Normal 3.5-5.1 [facility] Comment on above: Performed By: #### C MP, TSH #### [facility] [address] [place] [address] Dr. Lazaro Sam Protein [Mass/Vol] 7.6 g/dL Normal 6.4-8.2 [facility] Comment on above: Performed By: #### C MP, TSH #### [facility] [address] [place] [address] Dr. Lazaro Sam Sodium [Moles/Vol] 140 mmol/L Normal 136-145 [facility] Comment on above: Performed By: #### C MP, TSH #### [facility] [address] [place] [address] Dr. Lazaro Sam Urea nitrogen [Mass/Vol] 23.0 mg/dL Critically high 7.0-18.0 [facility] Comment on above: Performed By: #### C MP, TSH #### [facility] [address] [place] [address] Dr. Lazaro Sam Urea nitrogen/Creatinin e [Mass ratio] 17.7 mg/mg Normal [facility] Comment on above: Performed By: #### C MP, TSH #### [facility] [address] [place] [address] Dr. Lazaro Sam T4on 09-08-2021 T4 [Mass/Vol] 7.70 ug/dL Normal 4.50-12.10 [facility] Comment on above: Performed By: #### T 4 #### [facility] [address] [place] [address] Dr. Lazaro Sam TSHon 09-08-2021 TSH 1.079 uIU/mL Normal 0.358-3.740 [facility] Comment on above: Performed By: #### C MP, TSH #### [facility] [address] [address] [address] Lazaro Sam TSH RANGE SEE BELOW Normal [facility] Comment on above: Result Comment: <0.3 4 UIU/ml HYPERTHYROID 0.34-5.60 UIU/ml EUTHYROID >5.60 UIU/ml HYPOTHYROID Performed By: #### C MP, TSH #### [facility] [address] [address] [address] Lazaro Sam TESTOSTERONE, FREE,DIRECT, T OTALon 09-03-2021 Free Testosterone(Direc t) 9.4 pg/mL Normal 6.6-18.1 [facility] Comment on above: Result Comment: Perf ormed at: BN Performed By: #### T ESTFRD #### [facility] [address] [address] [address] Lazaro Sam Testosterone [Mass/Vol] 328 ng/dL Normal 264-916 [facility] Comment on above: Result Comment: Adul t male reference interval is based on a population of healthy nonobese males (BMI <30) between 19 and 39 years old. Abel et.al. JCEM 2017,102;5175-4104. PMID: [id number]. Performed at: CB Performed By: #### T ESTFRD #### [facility] [address] [address] [address] Lazaro Sam CNOVSPon 06-19-2018 CNOVSP Visit (SP) Office (HEMACL) LAMONT LOWERY ([id number]) 1945 M Date Time Provider Department 3/21/19 2:30 PM NARCISO MARINELLI During your visit [...] week. - CBC + DIFF (FOR REMOTE [facility] USE) Narciso Marinelli MD Referring Provider: RUPERTO BLAS [[id number]] Allergies As of Date: 06/19/2018 (No Known Allergies) Date Reviewed: 06/19/2018 Reviewed by: Melvi Valle - Fully Assessed Reason for Visit: polycythemia [Other] Cmt: follow up Primary Visit Diagnosis:Erythrocytosi s [D75.1] Order(s):CBC + DIFF (FOR REMOTE [facility] USE) [SQRCBCDF] Order #: [id number] STANDING Disposition: Return in about 1 year [...] by NARCISO MARINELLI MD on 06/19/18 Normal [facility] PROGRESSon 06-19-2018 Protein mass conc HNO ID: [id number] Author: Narciso Marinelli Service: ? Author Type: [...] week. - CBC + DIFF (FOR REMOTE [facility] USE) Narcios Marinelli MD Normal [facility] Remote CBCDIF (for [facility] use o nly)on 06-19-2018 Abs Baso <0.03 Normal 0.00-0.10 [facility] Abs Randolph 1.02 k/uL High 0.00-0.86 [facility] Abs Neut 5.04 k/uL Normal 1.45-7.50 [facility] Basophils/100 WBC (Bld) 0.2 % Normal [facility] Eosinophils #/vol (Bld) 0.40 10*3/uL Normal 0.00-0.45 [facility] Eosinophils/100 WBC (Bld) 4.5 % Normal [facility] Erythrocyte distribution width Ratio (RBC) 13.3 % Normal 11.5-15.0 [facility] Hematocrit Volume Fraction (Bld) 48.8 % Normal 39.0-51.0 [facility] Hemoglobin mass conc (Bld) 16.8 g/dL Normal 13.0-17.0 [facility] Lymphocytes #/vol (Bld) 2.43 10*3/uL Normal 1.00-4.00 [facility] Lymphocytes/100 WBC (Bld) 27.3 % Normal [facility] MCH Entitic mass (RBC) 30.5 pG Normal 26.0-34.0 [facility] MCHC mass conc (RBC) 34.4 g/dL Normal 30.5-36.0 [facility] MCV Entitic volume (RBC) 88.6 fL Normal 80.0-100.0 [facility] Monocytes/100 WBC (Bld) 11.4 % Normal [facility] Neutrophils/100 WBC (Bld) 56.6 % Normal [facility] Platelet mean volume Entitic volume (Bld) 9.6 fL Normal 9.0-12.7 [facility] Platelets #/vol (Bld) 152 10*3/uL Normal 150-400 [facility] RBC #/vol (Bld) 5.51 10*6/uL Normal 4.20-6.00 [facility] WBC #/vol (Bld) 8.91 10*3/uL Normal 3.70-11.00 [facility] BCR-ABL Qualitativeon 2018 BCR-ABL Qualitative (NOTE) Normal [facility] Comment on above: Result Comment: Plea se refer to [facility] Surgical Pathology report, Performed By: #### C ALR, BCRQL #### [facility] [address] [address] CALR Exon 9 Mutationon 05-29 CALR Result/Interp Duplicate request Normal [facility] Comment on above: Result Comment: Acco unt Credited SEE MPNP. DMCKNIGHT 05 30 2018 Performed By: #### C ALR, BCRQL #### [facility] [place] [address] [address] CALR Reviewed by Duplicate request Normal [facility] Comment on above: Result Comment: Acco unt Credited SEE MPNP. DMCKNIGHT 05 30 2018 Performed By: #### C ALR, BCRQL #### [facility] [address] [address] CALR Specimen Type Duplicate request Normal [facility] Comment on above: Result Comment: Acco unt Credited SEE MPNP. DMCK2018 Performed By: #### C ALR, BCRQL #### [facility] [address] [address] CNCOon 05-29-2018 CNCO Letter Text Dear Lamont Lowery: How to activate your [facility] [employer] Account 1. Visit the [employer] Signup page at [email or web address] 2. Identify yourself using your one-time use activation code: [id number] 3. Follow the on-screen prompts to choose [...] information on the Identify Yourself Form at [email or web address] , click Next. Create your login and password, choose a [employer] ID and password that will be easy for you to use, but impossible for anyone else to guess. Pick a security question that will assist you in the event you forget your password the next time you log-on. If you have difficulty activating your account, please call our [employer] helpline at [phone] or toll free at . We hope you enjoy using [employer]! Kindest Regards, [facility] [employer] Team Normal [facility] CNOVSPon 05-29-2018 CNOVSP Visit (SP) Office (HEMACL) LAMONT LOWERY ([id number]) 1945 M Date Time Provider Department 05/29/18 11:15 AM NARCISO MARINELLI HEMACL During your visit today, we recorded the following information about you: Temperature Pulse Respiration Blood pressure 97.8 degrees 69/minute 16/minute 192/89 Weight Height 91.8 kg 1.727 m Narciso Marinelli MD 05/29/2018 12:28 PM Signed HPI Lamont Lowery is a [...] viscosity is hematocrit with the risk of HI, CVA, Budd Chiari, etc all increased proportionately [...] Narciso Marinelli MD Referring Provider: MURALI SCHRADER [[id number]] Allergies As of Date: 05/29/2018 (No Known Allergies) Date Reviewed: 05/29/2018 Reviewed by: Melvi Valle - Fully Assessed Reason for Visit: high HGB [Other] Cmt: new patient consultation ref. Dr. Schrader Primary Visit Diagnosis:Polycythemia [D75.1] Other Visit Diagnosis:Erythrocytosi s [D75.1] Order(s):JAK2 V617F MUTATION BLOOD [SQJAK2] Order #: [id number] FUTURE BCR-ABL QUALITATIVE MULTIPLEX RT-PCR [SQBCRQL] Order #: [id number] FUTURE CALR EXON 9 MUTATION ANALYSIS BLOOD [SQCALR] Order #: [id number] FUTURE MPL MUTATION ANALYSIS BLOOD [SQMPL] Order #: [id number] FUTURE ABS GRAN CT + CBC (FOR REMOTE [facility] USE) [SQRAGCBC] Order #: [id number] FUTURE ERYTHROPOIETIN/EPO [SQEPO] Order #: [id number] FUTURE HEPATIC FUNCTION PNL [SQHFP] Order #: [id number] FUTURE TESTOSTERONE TOTAL [SQTESTO] Order #: [id number] FUTURE Disposition: Return in about 3 weeks [...] by NARCISO MARINELLI MD on 05/29/18 Normal [facility] EPOon 05-29-2018 EPO 8.8 mIU/mL Normal 2.6-18.5 [facility] Comment on above: Result Comment: Test analyzed by the [employer] DxI method. Performed By: #### Lucille AK2, EPO, HFP #### [facility] [address] [address] Hepatic Functn Panelon 05-29 Albumin mass conc 4.6 g/dL Normal 3.9-4.9 [facility] Comment on above: Performed By: #### Lucille AK2, EPO, HFP #### [facility] [place] [address] [address] ALP enzyme act/vol 60 U/L Normal 38-113 [facility] Comment on above: Performed By: #### Lucille AK2, EPO, HFP #### [facility] [place] [address] [place], [place] [address] ALT enzyme act/vol 36 U/L Normal 10-54 [facility] Comment on above: Performed By: #### Lucille AK2, EPO, HFP #### [facility] [place] [address] [address] AST enzyme act/vol 29 U/L Normal 14-40 [facility] Comment on above: Performed By: #### Lucille AK2, EPO, HFP #### [facility] [place] [address] [address] Bilirubin mass conc 0.5 mg/dL Normal 0.2-1.3 [facility] Comment on above: Performed By: #### Lucille AK2, EPO, HFP #### [address] [phone] Bilirubin,Conjugat ed <0.2 Normal <0.2 [facility] Comment on above: Performed By: #### Lucille AK2, EPO, HFP #### [address] [phone] Protein mass conc 7.6 g/dL Normal 6.3-8.0 [facility] Comment on above: Performed By: #### Lucille AK2, EPO, HFP #### [address] [phone] JAK2 V617F Mutationon 2018 JAK2 V617F Interp Duplicate request Normal [facility] Comment on above: Result Comment: Acco unt Credited SEE MPNP. [id number] Performed By: #### Lucille AK2, EPO, HFP #### [address] [phone] JAK2 V617F Spec Type Duplicate request Normal [facility] Comment on above: Result Comment: Acco unt Credited SEE MPNP. 2018 Performed By: #### Lucille AK2, EPO, HFP #### [address] [address] Molecular Path Rev Duplicate request Normal [facility] Comment on above: Result Comment: Acco unt Credited SEE MPNP. DM2018 Performed By: #### Lucille AK2, EPO, HFP #### [address] [phone] MPL Mutationon 05-29-2018 MPL Mutation Interp Duplicate request Normal [facility] Comment on above: Result Comment: Acco unt Credited SEE MPNP. 2018 Performed By: #### M PL #### [address] [place], [place] [address] Myeloprolif Neopl Pnl Bloodo n 05-29-2018 Myelo Neopl Pnl Bld (NOTE) Normal [facility] Comment on above: Result Comment: Hectormau vann refer to [facility] Surgical Pathology report, . Performed By: #### M PNP ####[facility] [id number] [place], [place] [phone] PROGRESSon 05-29-2018 Protein mass conc HNO ID: [id number] Author: Narciso Marinelli Service: (none) Author Type: [...] viscosity is hematocrit with the risk of HI, CVA, Budd Chiari, etc all increased proportionately [...] ABS GRAN CT + CBC (FOR REMOTE [facility] USE) - ERYTHROPOIETIN/EPO - HEPATIC FUNCTION PNL [...] - TESTOSTERONE TOTAL Narciso Marinelli MD Normal [facility] Remote Abs Gran + CBC (for [facility] use only)on 05-29-2018 Absol Gran Count 3.85 k/uL Normal 1.45-7.50 [facility] Erythrocyte distribution width Ratio (RBC) 13.6 % Normal 11.5-15.0 [facility] Hematocrit Volume Fraction (Bld) 49.6 % Normal 39.0-51.0 [facility] Hemoglobin mass conc (Bld) 17.1 g/dL High 13.0-17.0 [facility] MCH Entitic mass (RBC) 30.5 pG Normal 26.0-34.0 [facility] MCHC mass conc (RBC) 34.5 g/dL Normal 30.5-36.0 [facility] MCV Entitic volume (RBC) 88.6 fL Normal 80.0-100.0 [facility] Platelet mean volume Entitic volume (Bld) 9.9 fL Normal 9.0-12.7 [facility] Platelets #/vol (Bld) 146 10*3/uL Low 150-400 [facility] RBC #/vol (Bld) 5.60 10*6/uL Normal 4.20-6.00 [facility] WBC #/vol (Bld) 6.86 10*3/uL Normal 3.70-11.00 [facility] SURGICAL PATHOLOGYon 019 SURGICAL PATHOLOGY PROCEDURE REPORT Specimen originated from [facility] Specimen #: [id number] Submitting Physician: NARCISO MARINELLI MD SPECIMEN SUBMITTED [...] this sample, and cDNA prepared by reverse spinning frame fixer. Multiplex RT-PCR studies were performed using fluorescently [...] developed and its performance characteristics determined by [facility]'s [facility] Pathology [facility] [place] ([facility]). It has not been cleared or approved by the FDA. -[facility] is regulated under CLIA as qualified to perform high-complexity testing. This test is used for clinical purposes. It should not be regarded as investigational or for research. As Reviewed by: Narciso Luong M.D., Ph. D. JRC/cp 06/10/2018 Procedure Pathologist: Narciso Luong M.D. Electronic [...] sequencing was performed on the Illumina instrument ([place], [place]). A customized bioinformatic pipeline was used to align the sequencing reads to the reference human genome (GRCh37/hg19). Benign common polymorphisms are not reported. Limitations: Sequence changes outside the analyzed regions, including intronic, noncoding, and splice-site variants, will not be identified by this test. The lower limit of detection of this assay is approximately 1% allele proportion for the JAK2 Hec145Upl single nucleotide variant and approximately 5% allele [...] developed and its performance characteristics determined by [facility]'s [facility] Pathology [facility] [place] ([facility]). It has not been cleared or approved by the FDA. -[facility] is regulated under CLIA as qualified to perform high-complexity testing. This test is used for clinical purposes. It should not be regarded as investigational or for research. As Reviewed by: Quin Hill M.D. Ph.D. [facility]/ap [id number] References: Temi DA, Syd A, Joshua R, Payal J, Borvirgil MJ, Johanna Rashid MM, et al. The 2016 revision to the World Health Organization (WHO) classification of myeloid neoplasms and acute leukemia. Blood 2016;127: 2391-405. NCCN Guidelines, Myeloproliferative Neoplasms, Version 2.2018. Patricio Sapp, Leobardo DELUCA. Genomics of Myeloproliferative Neoplasms. J Clin Oncol. 2017 May 20;35(9):947-954. Procedure Pathologist: Quin Hill M.D. Electronic Signature CLINICAL DATA None provided. Date of Report: Date of Procedure: 05/29/2018 Date of Receipt: 05/30/2018 Submitted: NARCISO MARINELLI MD Location: [facility] Diagnostic interpretation performed at [facility], [address] [place] [address]. Normal [facility] 05-29-2018 Testosterone mass conc 249 ng/dL Normal 193-824 [facility] Comment on above: Result Comment: A te stosterone level in the 193-320 ng/dL range with associated clinical symptoms is considered low and may indicate hypogonadism (from NEJM 2009 363:123-135). Results >320 ng/dL are considered normal. Performed By: #### T ESTO ####[facility] [id number] [place], [place] [phone] Vital Signs Date Time Vital Sign Value Performing Clinician Facility 11-01-2023 14:44-0400 Body height 172.72 cm [facility] 11-01-2023 14:44-0400 Body mass index (BMI) [Ratio] 30.4 kg/m2 [facility] 11-01-2023 14:44-0400 Body temperature 99.1 [degF] [facility] 11-01-2023 14:44-0400 Body weight 90.94 kg [facility] 11-01-2023 14:44-0400 Diastolic blood pressure 98 mm[Hg] [facility] 11-01-2023 14:44-0400 Heart rate 80 /min [facility] 11-01-2023 14:44-0400 Respiratory rate 18 /min [facility] 11-01-2023 14:44-0400 SaO2% (BldA) [Mass fraction] 95 % [facility] 11-01-2023 14:44-0400 Systolic blood pressure 169 mm[Hg] [facility] 10-15-2023 12:58-0400 Blood Pressure Location [facility] 10-15-2023 12:58-0400 Diastolic blood pressure 90 mm[Hg] [facility] 10-15-2023 12:58-0400 Heart rate 81 /min [facility] 10-15-2023 12:58-0400 Respiratory rate 16 /min [facility] 10-15-2023 12:58-0400 Systolic blood pressure 162 mm[Hg] [facility] 03-19-2023 12:05-0500 Body height 172.72 cm Myrna Isbell Other [facility] Other 03-19-2023 12:05-0500 Body mass index (BMI) [Ratio] 30.62 kg/m2 Myrna Isbell Other [facility] Other 03-19-2023 12:05-0500 Body temperature 98.9 [degF] [facility]rna Isbell Other [facility] Other 03-19-2023 12:05-0500 Body weight 91.36 kg Myrna Isbell Other [facility] Other 03-19-2023 12:05-0500 Diastolic blood pressure 104 mm[Hg] [facility]rna Isbell Other [facility] Other 03-19-2023 12:05-0500 Respiratory rate 18 /min Myrna Isbell Other [facility] Other 03-19-2023 12:05-0500 SaO2% (BldA) [Mass fraction] 96 % Myrna Isbell Other [facility] Other 03-19-2023 12:05-0500 Systolic blood pressure 178 mm[Hg] Myrna Isbell Other [facility] Other 03-14-2023 13:10-0500 Body height 172.72 cm Magnolia Igor Other [facility] Other 03-14-2023 13:10-0500 Body mass index (BMI) [Ratio] 30.41 kg/m2 Magnolia Igor Other [facility] Other 03-14-2023 13:10-0500 Body temperature 100.1 [degF] Magnolia Igor Other [facility] Other 03-14-2023 13:10-0500 Body weight 90.72 kg Magnolia Igor Other [facility] Other 03-14-2023 13:10-0500 Diastolic blood pressure 87 mm[Hg] Magnolia Igor Other [facility] Other 03-14-2023 13:10-0500 Respiratory rate 18 /min Magnolia Igor Other [facility] Other 03-14-2023 13:10-0500 SaO2% (BldA) [Mass fraction] 96 % Magnolia Igor Other [facility] Other 03-14-2023 13:10-0500 Systolic blood pressure 190 mm[Hg] Magnolia Igor Other [facility] Other 10-17-2022 13:35-0400 Blood Pressure Location EWA VIERA [facility] 10-17-2022 13:35-0400 Diastolic blood pressure 112 mm[Hg] EWA VIERA [facility] 10-17-2022 13:35-0400 Heart rate 81 /min EWA VIERA [facility] 10-17-2022 13:35-0400 Systolic blood pressure 172 mm[Hg] EWA VIERA [facility] 04-16-2022 14:37-0500 Blood Pressure Location Murali RICE [facility] 10-16-2021 14:30-0400 Blood Pressure Location Murali Playroll [facility] [place] 10-16-2021 14:30-0400 Diastolic blood pressure 85 mm[Hg] Murali Playroll [facility] [place] 10-16-2021 14:30-0400 Heart rate 67 /min Murali RICE [facility] [place] 10-16-2021 14:30-0400 Respiratory rate 16 /min Murali Playroll [facility] [place] 10-16-2021 14:30-0400 Systolic blood pressure 170 mm[Hg] Murali RICE [facility] [place] Encounters Encounter Date Encounter Type Care Provider Facility Start: 11-01-2023 End: 11-01-2023 ambulatory [facility] Work Phone: Start: 11-01-2023 End: 11-01-2023 Patient encounter procedure [facility] Work Phone: Start: 10-15-2023 End: 10-15-2023 ambulatory EWA Zapien MAXIMILIANO Facility:[facility] Start: 10-15-2023 End: 10-15-2023 Patient encounter procedure EWA Curry MAXIMILIANO [facility] Start: 03-19-2023 End: 03-19-2023 ambulatory Myrna Isbell Other [facility] Other Start: 03-19-2023 Office outpatient vi sit 15 minutes Myrna Isbell [facility] Start: 03-15-2023 End: 03-15-2023 ambulatory Magnolia Igor Other [facility] Other Start: 03-15-2023 Telephone encounter Magnolia Igor [facility] Start: 03-14-2023 End: 03-14-2023 ambulatory Magnolia Igor Other [facility] Other Start: 03-14-2023 Office outpatient vi sit 15 minutes Magnolia Igor [facility] Start: 10-17-2022 End: 10-17-2022 ambulatory EWA Zapien MAXIMILIANO Facility:[facility] Start: 10-17-2022 End: 10-17-2022 ambulatory EWA CARRRY Facility:[facility] Start: 10-17-2022 End: 10-17-2022 Patient encounter procedure EWAJOSE MANUEL VIERA [facility] Start: 05-24-2022 End: 05-25-[address] FREDERICK GONZALEZ Facility: Start: 04-16-2022 End: 04-16-2022 Patient encounter procedure Murali SCHRADER [facility] [place] Start: 01-26-2022 End: 01-27-[address] MURALI SCHRADER Facility:[facility] Start: 10-16-2021 End: 10-16-2021 Patient encounter procedure Murali Blancas SCOTT [facility] Start: 09-08-2021 End: 09-09-[address] FREDERICK GONZALEZ Facility:[facility] Start: 09-01-2021 End: 09-02-[address] FREDERICK GONZALEZ Facility:[facility] Start: 06-19-2018 End: 06-20-2018 Patient encounter procedure NARCISO MARINELLI [facility] Start: 05-29-2018 End: 05-30-2018 [facility] Procedures Date Procedure Procedure Detail Performing Clinician Start: 09-01-[address] ROBIN GONZALEZ Comment on above: Performed By: #### P SAD #### [facility] [address] [place] [address] Dr. Lazaro Sam Appendectomy Murali SCHRADER Decompression of med trev nerve Murali Playroll Immunizations Immunization Date Immunization Notes Care Provider Fa cility 03-16-2021 SARS-CoV-2 (COVID-19 ) mRNA BNT-162b2 vax Murali Playroll [facility] Comment on above: Result Comment: 2022: [id number] 03-01-2021 SARS-CoV-2 (COVID-19 ) mRNA BNT-162b2 vax Murali Playroll [facility] 06-29-2020 SARS-CoV-2 (COVID-19 ) mRNA BNT-162b2 vax Murali Playroll [facility] 06-24-2020 SARS-CoV-2 (COVID-19 ) mRNA-1273 vaccine Murali Playroll [facility] 06-08-2020 SARS-CoV-2 (COVID-19 ) mRNA BNT-162b2 vax Murali Playroll [facility] 06-03-2020 SARS-CoV-2 (COVID-19 ) mRNA-1273 vaccine Murali Playroll [facility] 04-10-2018 tetanus toxoid, redu maurisio diphtheria toxoid, and acellular pertussis vaccine, adsorbed Murali Playroll [facility] Payers Date Payer Category Payer Unknown [id number] 2018 Medicare [id number] 1957 Medicare [id number] 1957 Unknown [id number] 1945 Unknown [id number] 2.16.84 [id number] 1945 Unknown [id number] 2.16.84 [id number] 1945 Unknown [id number] 2.16.84 [id number] 1945 Unknown [id number] 2.16.84 [id number] 1945 Unknown [id number] 2.16.8 [id number] 1945 Unknown [id number] 2.16.8 [id number] 1945 Unknown [id number] 2.16.8 [id number] Unknown [id number] 2.16.84 [id number] Social History Date Type Detail Facility Start: 04-17-2021 End: 10-15-2023 Tobacco smoking status Never smoked tobacco (finding) [facility] [place] [employer] Tobacco smoking status Never [facility] [employer] Sex Assigned At Male [facility] Start: 1945 Sex Assigned At Male F [facility] Functional Status Date Assessment Result Facility 10-15-2023 Functional Status N/A [facility] 10-17-2022 Functional Status N/A [facility] 04-16-2022 Functional Status N/A [facility] 10-16-2021 Functional Status N/A [facility] [employer] Clinical Notes 10-16-2021 to 10-15-2023 Note Date & Type Note Facility 10-15-2023 Hospital Discharge instructions Patient Education 10/15/2023 13:38:59 Hypogonadism, Male Hypogonadism, Male Male hypogonadism is [...] is the main cause of this condition. Use of medicines, such as antidepressants, steroids, [...] therapy. Follow these instructions at home: Take cfnn-qpa-rdxyjen and prescription medicines only as told by [...] provider. Document Revised: 11/17/2020 Document Reviewed: 11/17/2020 [facility] Patient Education 2022 [employer]. Follow Up Care 10/17/2022 15:04:57 With:MAXIMILIANO MAIER, EWA Zapien, URL Address: [address] [place] [address]. [place] [address] [phone] When: Unknown Comments:1 year w/ PSA, LFTs, Lipids, H&H, total T level [facility] 10-15-2023 Evaluation + Plan note Diagnostic Tests PendingTestosterone Level Total 10/15/23epatic Function Panel 10/15/23Lipid Panel 10/15/23emoglobin and Hematocrit 10/15/23PSA Total 10/15/23 [facility] 10-15-2023 Note Patient Education Urology Hypogonadism, Male Male hypogonadism [...] Follow these instructions at home: ? Take wmib-ygw-ksgkufe and prescription medicines only as told by [...] with your health care provider. Document Revised: (more content not included)... [facility] 03-19-2023 Evaluation note Encounter Date Diagnosis Assessment [...] today 120s/80s, he reports white coat syndrome. [facility] Other 12-14-2023 Evaluation note* Encounter Date Diagnosis [...] (suspected) exposure to covid-19 (ICD-10 - Z20.822) [facility] Other 07-19-2023 Hospital Discharge instructions Patient Education [...] therapy. Follow these instructions at home: Take yztw-ulj-dkoreyt and prescription medicines only as told by [...] provider. Document Revised: 11/17/2020 Document Reviewed: 11/17/2020 [facility] Patient Education 2022 [employer]rating. Follow Up Care 08/31/2022 12:38:12 With:EWA VIERA PA-C, URL Address: [address] [place] [address] When: Unknown [facility] 01-16-2023 Hospital Discharge instructions Patient Education 04/16/2022 [...] 06/24/2001 Document Revised: 07/09/2019 Document Reviewed: 02/11/2017 [facility] Patient Education 2020 [employer]. Follow Up Care 10/16/2021 15:07:22 With:SCOTT HOANG, Murali Blancas, URL Address: [address] [place] [address]- When:6 months Comments:PSA & testosterone [facility] 07-18-2022 Hospital Discharge instructions Patient Education 10/16/2021 [...] urethra. Follow these instructions at home: Take rxfk-lni-vkkdofn and prescription medicines only as told by [...] 03/18/2006 Document Revised: 02/10/2019 Document Reviewed: 04/22/2017 [facility] Patient Education 2020 [facility] [employer] Follow Up Care 04/17/2021 14:02:48 With:SCOTT HOANG, Murali Blancas, URL Address: [address] [place] [address] [place] [address]- When:3 months Comments:Testosterone level [facility] Evaluation + Plan note Future Appointments Appointment Date:04/16/2022 02:15:00 PM Scheduled Provider:Murali SCHRADER MD Location:[facility] Appointment Type:URO Office Visit Diagnostic Tests Pending * Testosterone Level Total 10/16/21 [facility] Evaluation + Plan note Future Appointments Appointment Date:10/15/2022 02:15:00 PM Scheduled Provider:Murali SCHRADER MD Location:[facility] Appointment Type:URO Office Visit Diagnostic Tests Pending * PSA Total 04/16/22 * Testosterone Level Total 04/16/22 [facility] Evaluation + Plan note Future Appointments Appointment Date:10/23/2023 01:20:00 PM Scheduled Provider:EWA VIERA PA-C Location:[facility] Appointment Type:URO Office Visit Diagnostic Tests Pending * PSA Total 08/31/23 * Testosterone Level Total 10/17/22 * Hemoglobin and Hematocrit 08/31/23 * Hepatic Function Panel 08/31/23 * Lipid Panel 08/31/23 [facility] evaluation [facility]No [facility] Other Evaluation note* Diagnosis Onset Date Resolution Status Bee sting reaction acute [facility] Work Phone: History general Narrative - Reported* Type Description Date Medical History glaucoma Medical History insomnia Medical History GERD (gastroesophageal reflux di sease) Medical History Hypothyroidism Surgical History tonsillectomy Surgical History appendectomy Surgical History carpal tunnel release right Hospitalization History see above [facility] Other Hospital course Narrative No data available for this section [facility] Progress note No data available for this section [facility] Summary Purpose Family History Relationship Condition Age at Onset Recorded Date/T mason father Unknown mother Unknown Advance Directives Advance Directive Response Recorded Date/ Time Advance Directives No October 31 2:36pm Chief Complaint and Reason for Visit Chief Complaint bug bite on left bearden d,foot Reason for Visit Bee sting reaction Additional Source Comments (unrecognized sect ion and content) No Status Records FoundNo Status Records FoundNo Status Records Found INFORMATION SOURCE (unrecogn ized section and content) DATE CREATED AUTHOR 06/20/2018 [facility] DATE CREATED AUTHOR AUTHOR'S ORGANIZ ATION 05/29/2022 [facility] DATE CREATED AUTHOR AUTHOR'S ORGANIZ ATION 10/17/2023 [facility] Care Team (unrecognized sect ion and content) Team Status: Active Member Role Status Dates PHYSICIAN NO FAMILY Primary Care Provider Active Team Status: Inactive Member Role Status Dates PHYSICIAN NO FAMILY Primary Care Provider Active Start: November 01, 2023 End: November 01, 2023 Magnolia Costa APRN Attending Provider Active S tart: November 01, 2023 End: November 01, 2023 REASON FOR VISIT (unrecogniz ed section and content) SINUS INFECTION, SORE THROAT , YELLOW MUCUSNo InformationSINUS INFECTION, HERE A WEEK AGO, FINISHED MEDICATIONS BUT SYMPTOMS PERSIST Goals (unrecognized section and content) Goals may be documented in a n alternate section FOR RECORDS PERTAINING TO PATIENTS WHO ARE [...] BE BASED ON THE PRIMARY CLINICAL RECORDS. [employer] [facility]. provides no warranty or guarantee of the accuracy or completeness of information in this document.
[2023-11-02] MEDS: SURGIFOAM GEL SPONGE SIZE 100 1 EACH TOPICAL (09:56)
[2023-11-02 10:27] VITALS: BP 174/94; PULSE 71; O2SAT 95
[2023-11-02 10:39] VITALS: BP 102/59
== END 2023-11-02 10:42 | disposition home or self-care (01) ==
PROVIDERS: Emergency Provider Emergency Medicine
DX: S01.511A Laceration without foreign body of lip, initial encounter (principal); W45.8XXA Other foreign body or object entering through skin, initial encounter
CPT/HCPCS: 99282

== ENCOUNTER 2023-12-31 12:56 | Emergency (ER) | payer MEDICARE, OTHER, SELFPAY ==
[2023-12-31 13:03] VITALS: BP 178/105; PULSE 102; TEMP 36.7; O2SAT 97; BMI 29.3
--- OUTSIDE RECORDS SUMMARY | 2023-12-31 13:12 | XMS_ITS | CCD ---
Author Organization [facility] Care Team Providers Care Harness Maker Name Role Phone NARCISO MARINELLI Attending Unavailable RICE, MURALI Blancas Referring Unavailable FANNING, NARCISO Bynum Referring Unavailable FANNING, NARCISO Bynum Attending Unavailable RUPERTO BLAS Referring Unavailab Frederick Villafuerte Primary Care Physician LISA, DR HARMAN Primary Care Unavailable RICE, [...] Unavailable RICE, DR MURALI Blancas Admitting Unavailable Magnolia Costa Unavailable Myrna Isbell Unavailable EWA VIREA Attending Unavailable EWA VIERA Attending Unavailable MAXMIILIANO, EWA Bynum Attending Unavailable EWA VIERA Admitting Unavailable JOSH HERNANDEZ Attending Unavailguillermo bynum Allergies Allergy Classification Reported Allergen(s) Allergy Type Date of Onset Reaction(s) Facility (1 source) No Known Medication Allergies; 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: [No Known Medication Allergies] Propensity to adverse reactions (disorder) [facility] Repository Medications Current Medications Medication Drug Class(es) Dates Sig (Normalized) Sig (Original) amoxicillin 875 mg / clavulanate 125 mg oral tablet (2 sources) Penicillin-class Antibacterial Start: 12-28-2023 take 1 tablet by mouth every twelve hours Amoxicillin-Pot Clavulanate Active 1 TAB PO Every 12 hours 18 01December 28, 2023 12:00am Start: 03-19-2023 take 1 tablet by bryanna th every twelve hours Amoxicillin-Pot Clavulanate 875-125 MG 1 tablet Orally every 12 hrs for 10 day(s) Mar, Active azithromycin 250 mg oral tablet (2 sources) Macrolide Antimicrobial Start: 03-15-2023 Zithromax Z-Jean-Claude 250 MG as directed Orally Mar, Active fluticasone propionate 0.05 mg/actuat metered dose nasal spray (1 source) Corticosteroid Start: 12-28-2023 Fluticasone Propionate Active INTRANASAL December 28, 2023 12:00am levothyroxine sodium 0.075 mg oral tablet (6 sources) l-Thyroxine Start: 10-10-2020 take 1 tablet by mouth once daily levothyroxine 75 mcg (0.075 mg) Tab mcg tab(s), Oral, Daily, Refills(s) 0 Start Date: 10/10/20 Status: Ordered take 1 tablet by bryanna once daily in the morning Levothyroxine Sodium 75 MCG 1 tablet in the morning on an empty stomach Orally Once a day Active loratadine 10 mg oral tablet (1 source) Start: 12-28-2023 take 1 tablet by mouth once daily Loratadine (Allergy Relief (Loratadine)) 10 mg tablet Active 10 MG PO Daily December 28, 2023 12:00am omeprazole 10 mg delayed release oral capsule (9 sources) Proton Pump Inhibitor Start: 11-01-2023 take 10 mg by mouth once daily Omeprazole Active 10 MG PO Daily November 01, 2023 12:00am Start: 12-29-2018 take 1 mg by mouth once daily Prilosec 10 mg Cap-EC mg cap(s), Oral, Daily, Refills(s) 0 Start Date: 12/29/18 Status: Ordered take 1 [facility] PriLOSEC 10 MG 1 [...] radha/PRN testosterone cypionate 100 mg/ml injectable solution (8 sources) Androgen Start: 11-01-2023 Testosterone C ypionate Active 50 MG IM .Q5days November 01, 2023 12:00am Start: 09-17-2023 testosterone c ypionate 100 mg/mL intramuscular solution 50 mg, IntraMuscular, q5day, # 10 mL, Refills(s) 5, Pharmacy: [id number], 172, cm, 10/17/22 13:50:00 EDT, Height/Length Dosing, 95, kg, 10/17/22 13:50:00 EDT, Weight Dosing Start Date: 09/17/23 Status: Ordered Start: 10-17-2022 testosterone c ypionate 100 mg/mL intramuscular solution 50 mg, IntraMuscular, q5day, # 10 mL, Refills(s) 5, Pharmacy: [id number], 172, cm, 10/17/22 13:50:00 EDT, Height/Length Dosing, 95, kg, 10/17/22 13:50:00 EDT, Weight Dosing Start Date: 10/17/22 Status: Ordered Start: 01-22-2022 testosterone c ypionate 100 mg/mL intramuscular solution 50 mg, IntraMuscular, q5day, # 10 mL, Refills(s) 3, [facility]: [id number], 172, cm, 10/16/21 14:53:00 EDT, Height/Length Dosing, 95, kg, 10/16/21 14:53:00 EDT, Weight Dosing Start Date: 01/22/22 Status: Ordered Start: 10-16-2021 testosterone c ypionate 100 mg/mL intramuscular solution 50 mg, IntraMuscular, q7day, # 10 mL, Refills(s) 3, [facility]: [facility] #[id number], 172, cm, 10/16/21 14:53:00 EDT, Height/Length Dosing, 95, kg, 10/16/21 14:53:00 EDT, Weight Dosing Start Date: 10/16/21 Status: Ordered Start: 09-28-2019 Depo-Testoster one 50 mg, IntraMuscular Start Date: 09/28/19 Status: Ordered Testosterone Cypionate 50 MG/ML (3 sources) Testosterone Cyp ionate 50 MG/ML as directed Injection Active timolol 2.5 mg/ml ophthalmic solution (10 sources) beta-Adrenergic Lala Start: 12-28-2023 take 1 drop(s) into the eye(s) once Timolol Maleate Active 1 DROPS OPHTHALMIC Once December 28, 2023 12:00am Start: 11-01-2023 End: 12-28-2023 take 1 drop(s) into the eye(s) once daily Timolol Discontinued 1 DROPS EYE-BOTH Daily November 01, 2023 12:00am December 28, 2023 11:22am Start: 11-01-2023 take 1 drop(s) into the eye(s) once daily Timolol Active 1 DROPS EYE-BOTH Daily November 01, 2023 12:00am Start: 10-10-2020 Timolol GFS 0. 5% Gel drop(s), Daily, Refill(s) 0 Start Date: 10/10/20 Status: Ordered Start: 10-10-2020 Timolol GFS 0. 5% Gel drop(s), Daily, Refill(s) 0 Start Date: 10/10/20 Status: Ordered Timolol Maleate Active zolpidem tartrate 12.5 mg extended release oral tablet (7 sources) gamma-Aminobutyric Acid-ergic Agonist Start: 11-01-2023 Zolpidem Active MG PO November 01, 2023 12:00am Start: 10-17-2022 take 1 tablet by bryanna once daily at bedtime as needed for sleep Ambien CR 12.5 mg Tab-ER 12.5 mg = 1 tab(s), Oral, Once a day (at bedtime), PRN for sleep Start Date: 10/17/22 Status: Ordered Completed/Discontinued Medications Medication Drug Class(es) Dates Sig (Normalized) Sig (Original) methylPREDNISolone 4 mg oral tablet (5 sources) Corticosteroid Start: 4 End: 4 take 1 tablet by mouth once Methylprednisolone (Medrol (Jean-Claude)) 4 mg tablets,dose pack Discontinued 0 PO per package directions November 01, 2023 12:00am December 28, 2023 11:19am PO PER PKG DIR Start: 12-31-2019 Medrol 4 MG as directed Orally for 6 days Dec, Not-Taking/PRN Triamcinolone (3 sources) Corticosteroid Start: 12-31-2019 KENALOG - 10 mg Dec, 40 mg valsartan 40 mg oral tablet (11 sources) Angiotensin 2 Receptor Lala Start: 12-28-2023 End: 12-28-2023 take 80 mg by mouth once daily Valsartan Discontinued 80 MG PO Daily December 28, 2023 11:20am December 28, 2023 11:22am Start: 12-28-2023 take 80 mg by mouth once daily Valsartan Active 80 MG PO Daily December 28, 2023 12:00am Start: 11-01-2023 End: 12-28-2023 take 40 mg by mouth once daily Valsartan Discontinued 40 MG PO Daily November 01, 2023 12:00am December 28, 2023 11:22am Start: 10-10-2020 take 1 mg by mouth once daily valsartan 80 mg Tab mg tab(s), Oral, Daily, Refills(s) 0 Start Date: 10/10/20 Status: Ordered take 1 tablet by bryanna th every twelve hours Valsartan 40 MG 1 tablet Orally Twice a day Active Problems Active Problems Problem Classification Problem Date [...] obesity 04-04-2020 Chronic Other upper respiratory infections (5 sources) Acute pharyngitis, unspecified; 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: [Acute pansinusitis, unspecified] Episodic Poisoning by nonmedicinal substances (4 sources) Bee sting; 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: [Toxic effect of [...] 10-15-2023 Ambulatory Visit Summary Ambulatory Visit Summary JEFERSON LAMONT Aguirre :1945 Visit Date:09/27/2018 Ambulatory Visit Instructions Your [...] Every 5 days Male hypogonadism Pickup at [facility] Unchanged tadalafil (Cialis 5 mg oral tablet) 1 Tablets By Mouth Every day Unchanged timolol ophthalmic (Timolol GFS 0.5% Gel) Every day Unchanged valsartan (valsartan 80 mg Tab) By Mouth Every day Unchanged zolpidem (Ambien CR 12.5 mg Tab-ER) 1 Tablets By Mouth Once a day (at bedtime) as needed for for sleep Pharmacy Information [id number]: [address] [place] [id number] [phone] What When Comments Stop Taking aspirin Stop [...] for choosing us for your care. Normal [facility] Urology Office/Clinic Noteon 10-15-2023 Urology [...] With When Contact Information MAXIMILIANO MAIER, EWA Bynum, URL [address] [facility] [place] [address] [phone] Additional Instructions: 1 year w/ PSA, LFTs, Lipids, H&H, total T level Patient Education Hypogonadism, Male Documentation recorded by the scribmisa Mason accurately reflects the services(s) I performed [...] History Family (more content not included)... Normal [facility] Comment on above: Result Comment: Elec tronically Signed By: EWA VIERA PA-C\.br\Date and Time Signed: 10/15/23 13:49 EDT\.br\Electronically Co-Signed By: Chhaya Mason\.br\Date and Time Co-Signed: 10/15/23 13:43 EDT [facility] 09-12-2023 Lab Reports [id number] IFF [facility] Lab Report[facility] 06-17-2023 Lab Reports [id number] IFF [facility] 03-18-2023 Lab Reports [id number] IFF Normal [facility] COVID + FLU Quick Testingon 03-14-2023 SARS-CoV-2 (COVID-19) RNA STEFF+probe Ql (Unsp spec) Negative N[facility]ed [facility] [employer] Other COVID + FLU Quick Testing Negative [employer] Other Quick Strepon 03-14-2023 S. pyogenes Org specific cx Ql (Throat) Negative [employer] Other Quick Strep [employer] Other Lab Report[facility] 12-03-2022 Lab Reports [id number] D:127 Normal [facility] Lab Report[facility] 11-27-2022 Lab Reports [id number] D:127 Normal [facility] C Urineon 10-19-2022 Bacteria identified [...] Locations R1: This test was performed at: [facility], [address] [place] [address], [facility] , , [facility] Comment on above: Performed By: #### 2 [id number] ####[facility] [address] [place] [address] Lab Reportson 10-19-2022 Lab Reports [id number] CD:127 Normal [facility] Screenson 10-19-2022 Screens [id number] CD:127 Normal [facility] Ambulatory Visit Summaryon 0 10-17-2022 Ambulatory Visit Summary LAMONT LOWERY :1945 [id number] Visit Date:10/17/2022 Ambulatory Visit Instructions Your Diagnosis BPH with urinary obstruction Male hypogonadism Asymptomatic microscopic hematuria Tests Performed Urnls Dip Stick Auto w/o Microscopy POC 11166 Your Care Team Attending Physician - EWA [...] EWA VIERA PA-C Where: [facility] Normal [facility] Patient Educationon 10-18-19 Patient Education Urology Hypogonadism, [...] Follow these instructions at home: ? Take jcog-ehz-jiufsbl and prescription medicines only as told by [...] 11/17/2020 Document (more content not included)... Normal [facility] Urinalysison 10-17-2022 Bilirubin Ql (U) Negative Normal Negative [facility] Comment on above: Performed By: #### 1 [id number] ####[facility] [address] [place] [address] Clarity (U) CLEAR Normal Clear [facility] Comment on above: Performed By: #### 1 [id number] ####[facility] [address] [place] [address] Color (U) YELLOW Normal Yellow [facility] Comment on above: Performed By: #### 1 [id number] ####[facility] [address] [place] [address] Epithelial cells.squamous LM.HPF (Urine sed) [#/Area] 0-2 Normal 0-2 [facility] Comment on above: Performed By: #### 1 [id number] ####[facility] [address] [place] [address] Glucose Test strip (U) [Mass/Vol] Negative Normal Negative [facility] Comment on above: Performed By: #### 1 [id number] ####[facility] [address] [place] [address] Hemoglobin Ql (U) Negative Normal Negative [facility] Comment on above: Performed By: #### 1 [id number] ####[facility] [address] [address] Ketones (U) [Mass/Vol] Negative Normal Negative [facility] Comment on above: Performed By: #### 1 [id number] ####[address] [address] Shorter.plasma/Lit hium.RBC (Bld) [Mass ratio] 0-3 Normal 0-3 [facility] Comment on above: Performed By: #### 1 [id number] ####[address] [address] Nitrite Ql (U) Negative Normal Negative [facility] Comment on above: Performed By: #### 1 [id number] ####[address] [address] pH (U) 6.0 [pH] Invalid Interpretation Code 5.0-9.0 [facility] Comment on above: Performed By: #### 1 [id number] ####[address] [address] Protein (U) [Mass/Vol] Negative Normal Negative [facility] Comment on above: Performed By: #### 1 [id number] ####[address] [address] Specific gravity (U) [Rel density] 1.015 Invalid Interpretation Code 1.005-1.030 [facility] Comment on above: Performed By: #### 1 [id number] ####[address] [address] Type of Urine collection method Random Urine Normal [facility] Comment on above: Performed By: #### 1 [id number] ####[address] [address] Urobilinogen Qn (U) 0.2 {Elizabeth'U}/dL Normal 0.0-1.0 [facility] Comment on above: Performed By: #### 1 [id number] ####[address] [address] WBC Auto Ql (U) Negative Normal Negative [facility] Comment on above: Performed By: #### 1 [id number] ####[facility] [address] [place] [address] WBC LM.HPF (Urine sed) [#/Area] 0-5 Normal 0-5 [facility] Comment on above: Performed By: #### 1 [id number] ####[facility] [address] [place] [address] Urology Office/Clinic Noteon 10-17-2022 Urology Office/Clinic Note [...] give him a few upcoming dates from [employer] website of local blood drives. Pt will [...] When Contact Information EWA VIERA PA-C, URL [address] [place] [address] Additional Instructions: 1 yr w multiple labs Patient Education Hypogonadism, Male Documentation recorded by the scribmisa Munguia accurately reflects the services(s) I performed and decisions made by me. Authenticated by Ewa Viera PA-C on 10/17/2022 16:18:03. I, Pippa Munguia, personally scribed for Ewa Viera PA-C on 10/17/2022 14:57:58. . Problem List/Past Medical History Ongoing Anticoagulated Asymptomatic microscopic hematuria BMI 30.0-30.9,adult BPH with urinary obstruction Male hypogonadism Male impotence Urinary hesitancy Historical Insomnia Sleep apnea Procedure/Surgical History Appendectomy, Carpal tunnel release. Medication (more content not included)... Normal [facility] Comment on above: Result Comment: Elec tronically Signed By: EWA VIERA PA-C\.br\Date and Time Signed: 10/17/22 16:19 EDT TESTOSTERONE, TOTALon 2022 Testosterone [Mass/Vol] 749 ng/dL Normal 264-916 [facility] Comment on above: Result Comment: Adul t male reference interval is based on a population of healthy nonobese males (BMI <30) between 19 and 39 years old. martha Roman.al. JCEM 2017,102;0870-6949. PMID: [id number]. Performed By: #### T ESTTOT #### [facility] [address] [place] [address] Dr. Lazaro Sam TESTOSTERONE, TOTALon 2021 Testosterone [Mass/Vol] 740 ng/dL Normal 264-916 [facility] Comment on above: Result Comment: Adul t male reference interval is based on a population of healthy nonobese males (BMI <30) between 19 and 39 years old. Abel et.al. JCEM 2017,102;7524-8317. PMID: [id number]. Performed By: #### T ESTTOT #### [facility] [address] [place] [address] Dr. Lazaro Sam CBC AUTO DIFFon 09-08-2021 BASO # 0.0 103/ul Normal 0.0-0.1 [facility] Comment on above: Performed By: #### C BC #### [facility] [address] [place] [address] Dr. Lazaro Sam Basophils/100 WBC (Bld) 0.4 % Normal 0.2-2.0 [facility] Comment on above: Performed By: #### C BC #### [facility] [address] [place] [address] Dr. Lazaro Sam EO # 0.1 103/ul Normal 0.0-0.7 [facility] Comment on above: Performed By: #### C BC #### [facility] [address] [place] [address] Dr. Lazaro Sam Eosinophils/100 WBC (Bld) 0.6 % Critically low 0.9-7.0 [facility] Comment on above: Performed By: #### C BC #### [facility] [address] [place] [address] Dr. Lazaro Sam Erythrocyte distribution width (RBC) [Ratio] 13.7 % Normal 11.0-15.0 [facility] Comment on above: Performed By: #### C BC #### [facility] [address] [place] [address] Dr. Lazaro Sam Hematocrit (Bld) [Volume fraction] 52.4 % Normal 42.0-54.0 [facility] Comment on above: Performed By: #### C BC #### [facility] [address] [address] [address] Lazaro Sam Hemoglobin (Bld) [Mass/Vol] 17.3 g/dL Normal 14.0-18.0 [facility] Comment on above: Performed By: #### C BC #### [facility] [address] [place] [address] Dr. Lazaro Sam IG # 0.03 10e3/ul Normal 0.00-0.03 [facility] Comment on above: Performed By: #### C BC #### [facility] [address] [place] [address] Dr. Lazaro Sam IG % 0.4 % Normal 0.0-0.5 [facility] Comment on above: Performed By: #### C BC #### [facility] [address] [place] [address] Dr. Lazaro Sam LYMPH # 1.5 103/ul Normal 1.2-3.8 [facility] Comment on above: Performed By: #### C BC #### [facility] [address] [place] [address] Dr. Lazaro Sam Lymphocytes/100 WBC (Bld) 18.7 % Critically low 20.5-60.0 [facility] Comment on above: Performed By: #### C BC #### [facility] [address] [place] [address] Dr. Lazaro Sam MANUAL DIFF REQ NO Normal [facility] Comment on above: Performed By: #### C BC #### [facility] [address] [place] [address] Dr. Lazaro Sam MCH (RBC) [Entitic mass] 29.7 pg Normal 25.9-34.0 [facility] Comment on above: Performed By: #### C BC #### [facility] [address] [place] [address] Dr. Lazaro Sam MCHC (RBC) [Mass/Vol] 33.0 g/dL Normal 29.9-35.2 [facility] Comment on above: Performed By: #### C BC #### [facility] [address] [address] [address] Lazaro Sam MCV (RBC) [Entitic vol] 90.0 fL Normal 80.0-94.0 [facility] Comment on above: Performed By: #### C BC #### [facility] [address] [address] [address] Lazaro Sam MONO # 0.6 103/ul Normal 0.3-0.8 [facility] Comment on above: Performed By: #### C BC #### [facility] [address] [place] [address] Dr. Lazaro Sam Monocytes/100 WBC (Bld) 7.7 % Normal 1.7-12.0 [facility] Comment on above: Performed By: #### C BC #### [facility] [address] [place] [address] Dr. Lazaro Sam NEUT # 5.8 103/ul Normal 1.4-6.5 [facility] Comment on above: Performed By: #### C BC #### [facility] [address] [place] [address] Dr. Lazaro Sam Neutrophils/100 WBC (Bld) 72.2 % Normal 43.0-75.0 [facility] Comment on above: Performed By: #### C BC #### [facility] [address] [place] [address] Dr. Lazaro Sam Platelet mean volume (Bld) [Entitic vol] 9.1 fL Critically low 9.5-13.5 [facility] Comment on above: Performed By: #### C BC #### [facility] [address] [place] [address] Dr. Lazaro Sam PLT 162 103/ul Normal 150-450 [facility] Comment on above: Performed By: #### C BC #### [facility] [address] [place], [place] [id number] Dr. Lazaro Sam RBC 5.82 106/ul Normal 4.70-6.10 [facility] Comment on above: Performed By: #### C BC #### [facility] [address] [place] [address] Dr. Lazaro Sam WBC 8.1 103/ul Normal 4.0-11.0 [facility] Comment on above: Performed By: #### C BC #### [facility] [address] [place] [address] Dr. Lazaro Sam PROF 14(COMP METB)on 022 Albumin [Mass/Vol] 3.7 g/dL Normal 3.4-5.0 [facility] Comment on above: Performed By: #### C MP, TSH #### [facility] [address] [place] [address] Dr. Lazaro Sam Albumin/Globulin [Mass ratio] 0.9 {ratio} Normal [facility] Comment on above: Performed By: #### C MP, TSH #### [facility] [address] [place] [address] Dr. Lazaro Sam ALP [Catalytic activity/Vol] 72 U/L Normal 46-116 [facility] Comment on above: Performed By: #### C MP, TSH #### [facility] [address] [place] [address] Dr. Lazaro Sam ALT [Catalytic activity/Vol] 42 U/L Normal 16-63 [facility] Comment on above: Performed By: #### C MP, TSH #### [facility] [address] [place] [address] Dr. Lazaro Sam Anion gap [Moles/Vol] 13.4 mmol/L Normal [facility] Comment on above: Performed By: #### C MP, TSH #### [facility] [address] [place] [address] Dr. Lazaro Sam AST [Catalytic activity/Vol] 22 U/L Normal 15-37 [facility] Comment on above: Performed By: #### C MP, TSH #### [facility] [address] [place] [address] Dr. Lazaro Sam Bilirubin [Mass/Vol] 0.6 mg/dL Normal 0.2-1.0 [facility] Comment on above: Performed By: #### C MP, TSH #### [facility] [address] [place] [address] Dr. Lazaro Sam Calcium [Mass/Vol] 8.8 mg/dL Normal 8.5-10.1 [facility] Comment on above: Performed By: #### C MP, TSH #### [facility] [address] [place] [address] Dr. Lazaro Sam Chloride [Moles/Vol] 104 mmol/L Normal 98-107 [facility] Comment on above: Performed By: #### C MP, TSH #### [facility] [address] [place] [address] Dr. Lazaro Sam CO2 [Moles/Vol] 26.5 mmol/L Normal 21.0-32.0 [facility] Comment on above: Performed By: #### C MP, TSH #### [facility] [address] [place] [address] Dr. Lazaro Sam Creatinine [Mass/Vol] 1.30 mg/dL Normal 0.70-1.30 [facility] Comment on above: Performed By: #### C MP, TSH #### [facility] [address] [place] [address] Dr. Lazaro Sam EGFR-AF SCOTTISH >60 Normal >=60 [facility] Comment on above: Performed By: #### C MP, TSH #### [facility] [address] [place] [address] Dr. Lazaro Sam EGFR-NON AF SCOTTISH 54 mL/min/1.73m2 Critically low >=60 [facility] Comment on above: Performed By: #### C MP, TSH #### [facility] [address] [place] [address] Dr. Lazaro Sam Globulin (S) [Mass/Vol] 3.9 g/dL Normal [facility] Comment on above: Performed By: #### C MP, TSH #### [facility] [address] [place] [address] Dr. Lazaro Sam Glucose [Mass/Vol] 117 mg/dL Critically high 74-106 T [facility] Comment on above: Performed By: #### C MP, TSH #### [facility] [address] [place] [address] Dr. Lazaro Sam Potassium [Moles/Vol] 3.9 mmol/L Normal 3.5-5.1 [facility] Comment on above: Performed By: #### C MP, TSH #### [facility] [address] [place] [address] Dr. Lazaro Sam Protein [Mass/Vol] 7.6 g/dL Normal 6.4-8.2 [facility] Comment on above: Performed By: #### C MP, TSH #### [facility] [address] [place] [address] Dr. Lazaro Sam Sodium [Moles/Vol] 140 mmol/L Normal 136-145 [facility] Comment on above: Performed By: #### C MP, TSH #### [facility] [address] [place] [address] Dr. Lazaro Sam Urea nitrogen [Mass/Vol] 23.0 mg/dL Critically high 7.0-18.0 [facility] Comment on above: Performed By: #### C MP, TSH #### [facility] [address] [place] [address] Dr. Lazaro Sam Urea nitrogen/Creatinin e [Mass ratio] 17.7 mg/mg Normal [facility] Comment on above: Performed By: #### C MP, TSH #### [facility] [address] [place] [address] Dr. Lazaro Sam T4on 09-08-2021 T4 [Mass/Vol] 7.70 ug/dL Normal 4.50-12.10 [facility] Comment on above: Performed By: #### T 4 #### [facility] [address] [place] [address] Dr. Lazaro Sam TSHon 09-08-2021 TSH 1.079 uIU/mL Normal 0.358-3.740 [facility] Comment on above: Performed By: #### C MP, TSH #### [facility] [address] [place] [address] Dr. Lazaro Sam TSH RANGE SEE BELOW Normal [facility] Comment on above: Result Comment: <0.3 4 UIU/ml HYPERTHYROID 0.34-5.60 UIU/ml EUTHYROID >5.60 UIU/ml HYPOTHYROID Performed By: #### C MP, TSH #### [facility] [id number] aLzaro Sam TESTOSTERONE, FREE,DIRECT, T OTALon 09-03-2021 Free Testosterone(Direc t) 9.4 pg/mL Normal 6.6-18.1 [facility] Comment on above: Result Comment: Perf ormed at: BN Performed By: #### T ESTFRD #### [facility] [address] [address] [address] Lazaro Sam Testosterone [Mass/Vol] 328 ng/dL Normal 264-916 [facility] Comment on above: Result Comment: Adul t male reference interval is based on a population of healthy nonobese males (BMI <30) between 19 and 39 years old. Abel et.al. JCEM 2017,102;4154-7243. PMID: [id number]. Performed at: CB Performed By: #### T ESTFRD #### [facility] [address] [place] [address] Dr. Lazaro Sam CNOVSPon 06-19-2018 CNOVSP Visit (SP) Office (HEMACL) LAMONT LOWERY ([id number]) 1945 M Date Time Provider Department 06/19/18 2:30 PM NARCISO MARINELLI During your visit today, we recorded the following information about you: Temperature Pulse Respiration Blood pressure 98 degrees 74/minute 18/minute 186/97 Weight Height 93.6 kg 1.727 m Narciso Marinelli MD 06/19/2018 2:18 PM Signed HPI Lamont Carla Lowery is [...] week. - CBC + DIFF (FOR REMOTE [facility] USE) Narciso Marinelli MD Referring Provider: RUPERTO BLAS [[id number]] Allergies As of Date: 06/19/2018 (No Known Allergies) Date Reviewed: 06/19/2018 Reviewed by: Melvi Valle - Fully Assessed Reason for Visit: polycythemia [Other] Cmt: follow up Primary Visit Diagnosis:Erythrocytosi s [D75.1] Order(s):CBC + DIFF (FOR REMOTE [facility] USE) [SQRCBCDF] Order #: [id number] STANDING Disposition: Return in about 1 year [...] by NARCISO MARINELLI MD on 06/19/18 Normal [facility] PROGRESSon 06-19-2018 Protein mass conc HNO ID: [id number] Author: Narciso Marinelli Service: ? Author Type: [...] week. - CBC + DIFF (FOR REMOTE [facility] USE) Narciso Marinelli MD Normal [facility] Remote CBCDIF (for [facility] use o nly)on 06-19-2018 Abs Baso <0.03 Normal 0.00-0.10 [facility] Abs Adams 1.02 k/uL High 0.00-0.86 [facility] Abs Neut 5.04 k/uL Normal 1.45-7.50 [facility] Basophils/100 WBC (Bld) 0.2 % Normal [facility] Eosinophils #/vol (Bld) 0.40 10*3/uL Normal 0.00-0.45 [facility] Eosinophils/100 WBC (Bld) 4.5 % Normal [facility] Erythrocyte distribution width Ratio (RBC) 13.3 % Normal 11.5-15.0 [facility] Hematocrit Volume Fraction (Bld) 48.8 % Normal 39.0-51.0 [facility] Hemoglobin mass conc (Bld) 16.8 g/dL Normal 13.0-17.0 [facility] Lymphocytes #/vol (Bld) 2.43 10*3/uL Normal 1.00-4.00 [facility] Lymphocytes/100 WBC (Bld) 27.3 % Normal [facility] MCH Entitic mass (RBC) 30.5 pG Normal 26.0-34.0 [facility] MCHC mass conc (RBC) 34.4 g/dL Normal 30.5-36.0 [facility] MCV Entitic volume (RBC) 88.6 fL Normal 80.0-100.0 [facility] Monocytes/100 WBC (Bld) 11.4 % Normal [facility] Neutrophils/100 WBC (Bld) 56.6 % Normal [facility] Platelet mean volume Entitic volume (Bld) 9.6 fL Normal 9.0-12.7 [facility] Platelets #/vol (Bld) 152 10*3/uL Normal 150-400 [facility] RBC #/vol (Bld) 5.51 10*6/uL Normal 4.20-6.00 [facility] WBC #/vol (Bld) 8.91 10*3/uL Normal 3.70-11.00 [facility] BCR-ABL Qualitativeon 2018 BCR-ABL Qualitative (NOTE) Normal [facility] Comment on above: Result Comment: Plea se refer to [facility] Surgical Pathology report, Performed By: #### C ALR, BCRQL #### [facility] [address] [place], [place] [address] CALR Exon 9 Mutationon 05-29 CALR Result/Interp Duplicate request Normal [facility] Comment on above: Result Comment: Acco unt Credited SEE MPNP. DMCKNIGHT 05 30 2018 Performed By: #### C ALR, BCRQL #### [facility] [address] [place], [place] [address] CALR Reviewed by Duplicate request Normal [facility] Comment on above: Result Comment: Acco unt Credited SEE MPNP. DMCKNIGHT 05 30 2018 Performed By: #### C ALR, BCRQL #### [facility] [address] [address] CALR Specimen Type Duplicate request Normal [facility] Comment on above: Result Comment: Acco unt Credited SEE MPNP. DMCKNIGHT 05 30 2018 Performed By: #### C ALR, BCRQL #### [facility] [address] [id number] CNCOon 05-29-2018 CNCO Letter Text Dear Lamont Lowery: How to activate your [facility] [employer] Account 1. Visit the [employer] Signup page at [email or web address] 2. Identify yourself using your one-time use activation code: [email or web address] 3. Follow the on-screen prompts to choose [...] information on the Identify Yourself Form at [email or web address] , click Next. Create your login and password, choose a First[employer] ID and password that will be easy for you to use, but impossible for anyone else to guess. Pick a security question that will assist you in the event you forget your password the next time you log-on. If you have difficulty activating your account, please call our [employer] helpline at [phone] or toll free at . We hope you enjoy using [employer]! Kindest Regards, [facility] [employer] Team Normal [facility] CNOVSPon 05-29-2018 CNOVSP Visit (SP) Office (HEMACL) LAMONT LOWERY ([id number]) 1945 M Date Time Provider Department 05/29/18 11:15 AM NARCISO MARINELLI During your visit today, we [...] viscosity is hematocrit with the risk of UT, CVA, Budd Chiari, etc all increased proportionately [...] ABS GRAN CT + CBC (FOR REMOTE [facility] USE) - ERYTHROPOIETIN/EPO - [...] Narciso Marinelli MD Referring Provider: MURALI SCHRADER [[id number]] Allergies As of Date: 05/29/2018 (No Known Allergies) Date Reviewed: 05/29/2018 Reviewed by: Melvi Valle - Fully Assessed Reason for Visit: high HGB [Other] Cmt: new patient consultation ref. Dr. Schrader Primary Visit Diagnosis:Polycythemia [D75.1] Other Visit Diagnosis:Erythrocytosi s [D75.1] Order(s):JAK2 V617F MUTATION BLOOD [SQJAK2] Order #: [id number] FUTURE BCR-ABL QUALITATIVE MULTIPLEX RT-PCR [SQBCRQL] Order #: [id number] FUTURE CALR EXON 9 MUTATION ANALYSIS BLOOD [SQCALR] Order #: [id number] FUTURE MPL MUTATION ANALYSIS BLOOD [SQMPL] Order #: [id number] FUTURE ABS GRAN CT + CBC (FOR REMOTE [facility] USE) [SQRAGCBC] Order #: [id number] FUTURE ERYTHROPOIETIN/EPO [SQEPO] Order #: [id number] FUTURE HEPATIC FUNCTION PNL [SQHFP] Order #: [id number] FUTURE TESTOSTERONE TOTAL [SQTESTO] Order #: [id number] FUTURE Disposition: Return in about 3 weeks [...] by NARCISO MARINELLI MD on 05/29/18 Normal [facility] EPOon 05-29-2018 EPO 8.8 mIU/mL Normal 2.6-18.5 [facility] Comment on above: Result Comment: Test analyzed by the Ocelus DxI method. Performed By: #### Lucille AK2, EPO, HFP #### [facility] [address] [address] Hepatic Functn Panelon 05-29 Albumin mass conc 4.6 g/dL Normal 3.9-4.9 [facility] Comment on above: Performed By: #### Lucille AK2, EPO, HFP #### [address] [phone] ALP enzyme act/vol 60 U/L Normal 38-113 [facility] Comment on above: Performed By: #### Lucille AK2, EPO, HFP #### [address] [address] ALT enzyme act/vol 36 U/L Normal 10-54 [facility] Comment on above: Performed By: #### Lucille AK2, EPO, HFP #### [address] [address] AST enzyme act/vol 29 U/L Normal 14-40 [facility] Comment on above: Performed By: #### J AK2, EPO, HFP #### [address] [address] Bilirubin mass conc 0.5 mg/dL Normal 0.2-1.3 [facility] Comment on above: Performed By: #### J AK2, EPO, HFP #### [address] [address] Bilirubin,Conjugat ed <0.2 Normal <0.2 [facility] Comment on above: Performed By: #### Lucille AK2, EPO, HFP #### [address] [place], [place] [address] Protein mass conc 7.6 g/dL Normal 6.3-8.0 [facility] Comment on above: Performed By: #### J AK2, EPO, HFP #### [facility] [address] [id number] JAK2 V617F Mutationon 2018 JAK2 V617F Interp Duplicate request Normal [facility] Comment on above: Result Comment: Acco unt Credited SEE MPNP. DMCK2018 Performed By: #### J AK2, EPO, HFP #### [facility] [address] [address] JAK2 V617F Spec Type Duplicate request Normal [facility] Comment on above: Result Comment: Acco unt Credited SEE MPNP. DM2018 Performed By: #### Lucille AK2, EPO, HFP #### [facility] [address] [phone] Molecular Path Rev Duplicate request Normal [facility] Comment on above: Result Comment: Acco unt Credited SEE MPNP. DMCK2018 Performed By: #### J AK2, EPO, HFP #### [facility] [address] [place], [place] [address] MPL Mutationon 05-29-2018 MPL Mutation Interp Duplicate request Normal [facility] Comment on above: Result Comment: Acco unt Credited SEE MPNP. DMCK2018 Performed By: #### M PL #### [facility] [address] [place], [place] [address] Myeloprolif Neopl Pnl Bloodo n 05-29-2018 Myelo Neopl Pnl Bld (NOTE) Normal [facility] Comment on above: Result Comment: Plea se refer to [facility] Surgical Pathology report, . Performed By: #### M PNP ####[facility] [phone] PROGRESSon 05-29-2018 Protein mass conc HNO ID: [id number] Author: Narciso Marinelli Service: (none) Author Type: [...] viscosity is hematocrit with the risk of UT, CVA, Budd Chiari, etc all increased proportionately [...] - TESTOSTERONE TOTAL Narciso Marinelli MD Normal [facility] Remote Abs Gran + CBC (for [facility] use only)on 05-29-2018 Absol Gran Count 3.85 k/uL Normal 1.45-7.50 [facility] Erythrocyte distribution width Ratio (RBC) 13.6 % Normal 11.5-15.0 [facility] Hematocrit Volume Fraction (Bld) 49.6 % Normal 39.0-51.0 [facility] Hemoglobin mass conc (Bld) 17.1 g/dL High 13.0-17.0 [facility] MCH Entitic mass (RBC) 30.5 pG Normal 26.0-34.0 [facility] MCHC mass conc (RBC) 34.5 g/dL Normal 30.5-36.0 [facility] MCV Entitic volume (RBC) 88.6 fL Normal 80.0-100.0 [facility] Platelet mean volume Entitic volume (Bld) 9.9 fL Normal 9.0-12.7 [facility] Platelets #/vol (Bld) 146 10*3/uL Low 150-400 [facility] RBC #/vol (Bld) 5.60 10*6/uL Normal 4.20-6.00 [facility] WBC #/vol (Bld) 6.86 10*3/uL Normal 3.70-11.00 [facility] SURGICAL PATHOLOGYon 019 SURGICAL PATHOLOGY PROCEDURE REPORT Specimen originated from [facility] Specimen #: [id number] Submitting Physician: NARCISO MARINELLI MD SPECIMEN SUBMITTED [...] this sample, and cDNA prepared by reverse av specialist. Multiplex RT-PCR studies were performed using fluorescently [...] developed and its performance characteristics determined by [facility] [place] ([facility]). It has not been cleared or approved by the FDA. [facility] is regulated under CLIA as qualified to perform high-complexity testing. This test is used for clinical purposes. It should not be regarded as investigational or for research. As Reviewed by: Narciso Luong M.D., Ph. D. [facility]/cp 06/10/2018 Procedure Pathologist: Narciso Luong M.D. Electronic [...] sequencing was performed on the Illumina instrument ([place], [place]). A customized bioinformatic pipeline was used to align the sequencing reads to the reference human genome (GRCh37/hg19). Benign common polymorphisms are not reported. Limitations: Sequence changes outside the analyzed regions, including intronic, noncoding, and splice-site variants, will not be identified by this test. The lower limit of detection of this assay is approximately 1% allele proportion for the JAK2 [id number] single nucleotide variant and approximately 5% allele [...] developed and its performance characteristics determined by [facility] [place] ([facility]). It has not been cleared or approved by the FDA. [facility] is regulated under CLIA as qualified to perform high-complexity testing. This test is used for clinical purposes. It should not be regarded as investigational or for research. As Reviewed by: Quin Hill M.D. Ph.D. [facility]ENRIK/ap [id number] References: Temi DA, Syd A, Joshua R, Payal J, Ariella [...] Receipt: 05/30/2018 Submitted: NARCISO MARINELLI MD Location: [facility] Diagnostic interpretation performed at [facility], [address] [place] [id number]. Normal [facility] Testosteroneon 05-29-2018 Testosterone mass conc 249 ng/dL Normal 193-824 [facility] Comment on above: Result Comment: A te stosterone level in the 193-320 ng/dL range with associated clinical symptoms is considered low and may indicate hypogonadism (from NEJM 2010 363:123-135). Results >320 ng/dL are considered normal. Performed By: #### T ESTO ####[address] [phone] Vital Signs Date Time Vital Sign Value Performing Clinician Facility 12-28-2023 11:16-0400 Body height 172.72 cm [facility] 12-28-2023 11:16-0400 Body mass index (BMI) [Ratio] 30.1 kg/m2 [facility] 12-28-2023 11:16-0400 Body temperature 98 [degF] [facility] 12-28-2023 11:16-0400 Body weight 89.92 kg [facility] 12-28-2023 11:16-0400 Diastolic blood pressure 92 mm[Hg] [facility] 12-28-2023 11:16-0400 Heart rate 102 /min [facility] 12-28-2023 11:16-0400 Respiratory rate 18 /min [facility] 12-28-2023 11:16-0400 SaO2% (BldA) [Mass fraction] 95 % [facility] 12-28-2023 11:16-0400 Systolic blood pressure 153 mm[Hg] [facility] 11-01-2023 14:44-0400 Body height 172.72 cm [facility] 11-01-2023 14:44-0400 Body mass index (BMI) [Ratio] 30.4 kg/m2 [facility] 11-01-2023 14:44-0400 Body temperature 99.1 [degF] [facility] 11-01-2023 14:44-0400 Body weight 90.94 kg [facility] 11-01-2023 14:44-0400 Diastolic blood pressure 98 mm[Hg] [facility] 11-01-2023 14:44-0400 Heart rate 80 /min [facility] 11-01-2023 14:44-0400 Respiratory rate 18 /min [facility] 11-01-2023 14:44-0400 SaO2% (BldA) [Mass fraction] 95 % [facility] 11-01-2023 14:44-0400 Systolic blood pressure 169 mm[Hg] [facility] 07-16-2024 12:58-0400 Blood Pressure Location EWAKEV CARRRY [facility] [place] [facility] 10-15-2023 12:58-0400 Diastolic blood pressure 90 mm[Hg] EWA MAXIMILIANO [facility] [place] [facility] 10-15-2023 12:58-0400 Heart rate 81 /min EWA MAXIMILIANO [facility] [place] [facility] 10-15-2023 12:58-0400 Respiratory rate 16 /min EWA MAXIMILIANO [facility] 10-15-2023 12:58-0400 Systolic blood pressure 162 mm[Hg] EWA MAXIMILIANO [facility] 03-19-2023 12:05-0500 Body height 172.72 cm Myrna Isbell Other [facility] Other 03-19-2023 12:05-0500 Body mass index (BMI) [Ratio] 30.62 kg/m2 Myrna Isbell Other [facility] Other 03-19-2023 12:05-0500 Body temperature 98.9 [degF] Myrna Isbell Other [facility] Other 03-19-2023 12:05-0500 Body weight 91.36 kg Myrna Isbell Other [facility] Other 03-19-2023 12:05-0500 Diastolic blood pressure 104 mm[Hg] Myrna Isbell Other [facility] Other 03-19-2023 12:05-0500 Respiratory rate 18 /min Myrna Isbell Other [facility] Other 03-19-2023 12:05-0500 SaO2% (BldA) [Mass fraction] 96 % Myrna Isbell Other [facility] Other 03-19-2023 12:05-0500 Systolic blood pressure 178 mm[Hg] Myrna Isbell Other [facility] Other 03-14-2023 13:10-0500 Body height 172.72 cm Magnolia Igor Other [facility] Other 03-14-2023 13:10-0500 Body mass index (BMI) [Ratio] 30.41 kg/m2 Magnolia Igor Other [facility] Other 03-14-2023 13:10-0500 Body temperature 100.1 [degF] Magnolia Igor Other [facility] Other 03-14-2023 13:10-0500 Body weight 90.72 kg Magnolia Igor Other [facility] Other 03-14-2023 13:10-0500 Diastolic blood pressure 87 mm[Hg] Magnolia Igor Other [facility] Other 03-14-2023 13:10-0500 Respiratory rate 18 /min Magnolia Igor Other [facility] Other 03-14-2023 13:10-0500 SaO2% (BldA) [Mass fraction] 96 % Magnolia Igor Other [employer] Other 03-14-2023 13:10-0500 Systolic blood pressure 190 mm[Hg] Magnolia Costa Other [facility] Other 10-17-2022 13:35-0400 Blood Pressure Location EWA VIERA [facility] [place] [facility] 10-17-2022 13:35-0400 Diastolic blood pressure 112 mm[Hg] EWA CARRRY [facility] [place] [facility] 10-17-2022 13:35-0400 Heart rate 81 /min EWA CARRRY [facility] [place] [facility] 10-17-2022 13:35-0400 Systolic blood pressure 172 mm[Hg] EWA CARRRY [facility] [place] [facility] 04-16-2022 14:37-0500 Blood Pressure Location Murali RICE [facility] 10-16-2021 14:30-0400 Blood Pressure Location Murali RICE [facility] 10-16-2021 14:30-0400 Diastolic blood pressure 85 mm[Hg] Murali RICE [facility] 10-16-2021 14:30-0400 Heart rate 67 /min Murali RICE [facility] 10-16-2021 14:30-0400 Respiratory rate 16 /min Murali RICE [facility] 10-16-2021 14:30-0400 Systolic blood pressure 170 mm[Hg] Murali RICE [facility] [place] Encounters Encounter Date Encounter Type Care Provider Facility Start: 12-28-2023 End: 12-28-2023 ambulatory [facility] Work Phone: Start: 12-28-2023 End: 12-28-2023 Patient encounter procedure [facility] Work Phone: Start: 12-12-2023 End: 12-12-2023 ambulatory JOSH RUSHPATRICK Not Available Start: 11-01-2023 End: 11-01-2023 ambulatory [facility] Work Phone: Start: 11-01-2023 End: 11-01-2023 Patient encounter procedure [facility] Work Phone: Start: 10-15-2023 End: 10-15-2023 ambulatory EWA VIERA Facility:[facility] Start: 10-15-2023 End: 10-15-2023 Patient encounter procedure EWA CARRRY [facility] Start: 03-19-2023 End: 03-19-2023 ambulatory Myrna Isbell Other [facility] [employer] Other Start: 03-19-2023 Office outpatient visit 15 minutes Myrna Isbell [facility] Start: 03-15-2023 End: 03-15-2023 ambulatory Magnolia Igor Other [employer] Other Start: 03-15-2023 Telephone encounter Magnolia Igor [facility] Start: 03-14-2023 End: 03-14-2023 ambulatory Magnolia Igor Other [facility] Other Start: 03-14-2023 Office outpatient visit 15 minutes Magnolia Igor [facility] Start: 10-17-2022 End: 10-17-2022 ambulatory EWA VIERA Facility:[facility] Start: 10-17-2022 End: 10-17-2022 ambulatory EWA VIERA Facility:[facility] Start: 10-17-2022 End: 10-17-2022 Patient encounter procedure EWA VIERA [facility] [place] Start: 05-24-2022 End: 05-25-[address] FREDERICK GONZALEZ Facility:[facility] Start: 04-16-2022 End: 04-16-2022 Patient encounter procedure Murali SCHRADER [facility] [place] Start: 01-26-2022 End: 01-27-[address] MURALI SCHRADER Facility:[facility] Start: 10-16-2021 End: 10-16-2021 Patient encounter procedure Murali SCHRADER [facility] [place] Start: 09-08-2021 End: 09-09-[address] FREDERICK GONZALEZ Facility:[facility] Start: 09-01-2021 End: 09-02-[address] FREDERICK GONZALEZ Facility:[facility] Start: 06-19-2018 End: 06-20-2018 Patient encounter procedure NARCISO MARINELLI [facility] Start: 05-29-2018 End: 05-30-2018 Patient encounter procedure NARCISO MARINELLI [facility] Procedures Date Procedure Procedure Detail Performing Clinician Start: 09-01-[address] ROBIN GONZALEZ Comment on above: Performed By: #### P SAD #### [facility] [address] [place] [address] Dr. Lazaro Sam Appendectomy Murali SCHRADER Decompression of med trev nerve Murali SCHRADER Immunizations Immunization Date Immunization Notes Care Provider Fa ciliphong 03-16-2021 SARS-CoV-2 (COVID-19 ) mRNA BNT-162b2 vax Ansira [facility] Comment on above: Result Comment: 2022: [id number] 03-01-2021 SARS-CoV-2 (COVID-19 ) mRNA BNT-162b2 vax [facility] 06-29-2020 SARS-CoV-2 (COVID-19 ) mRNA BNT-162b2 vax Ansira [facility] 06-24-2020 SARS-CoV-2 (COVID-19 ) mRNA-1273 vaccine Ansira [facility] 06-08-2020 SARS-CoV-2 (COVID-19 ) mRNA BNT-162b2 vax Ansira [facility] 06-03-2020 SARS-CoV-2 (COVID-19 ) mRNA-1273 vaccine [facility] 04-10-2018 tetanus toxoid, redu maurisio diphtheria toxoid, and acellular pertussis vaccine, adsorbed [facility] Payers Date Payer Category Payer Unknown [id number] 2018 Medicare [id number] 1959 Medicare [id number] 1959 Unknown [id number] 1945 Unknown [id number] 2.16.84 [id number] 1945 Unknown [id number] 2.16.84 [id number] 1945 Unknown [id number] 2.16.84 [id number] 1945 Unknown [id number] 2.16.84 [id number] 1945 Unknown [id number] 2.16.8 [id number] 1945 Unknown [id number] 2.16.8 [id number] 1945 Unknown [id number] 2.16.8 [id number] 1945 Unknown [id number] 2.16.84 [id number] Unknown [id number] 2.16.84 [id number] Social History Date Type Detail Facility Start: 04-17-2021 End: 10-15-2023 Tobacco smoking status Never smoked tobacco (finding) [facility] [employer] Tobacco smoking status Never [facility] [employer] Sex Assigned At Male [facility] [employer] Start: 1945 Sex Assigned At Male F [facility] Functional Status Date Assessment Result Facility 10-15-2023 Functional Status N/A [facility] 10-17-2022 Functional Status N/A [facility] 04-16-2022 Functional Status N/A [facility] 10-16-2021 Functional Status N/A [facility] [employer] Clinical Notes 10-16-2021 to 10-15-2023 Note Date & Type Note Facility 07-16-2024 Hospital Discharge instructions Patient Education 10/15/2023 13:38:59 [...] therapy. Follow these instructions at home: Take rxjk-vwz-xksrrym and prescription medicines only as told by [...] provider. Document Revised: 11/17/2020 Document Reviewed: 11/17/[address] [employer] Patient Education 2022 [employer]. Follow Up Care 10/17/2022 15:04:57 With:EWA VIERA PA-C, URL Address: [address] [place] [address] [phone] When: Unknown Comments:1 year w/ PSA, LFTs, Lipids, H&H, total T level [facility] 10-15-2023 Evaluation + Plan note Diagnostic Tests PendingTestosterone Level Total 10/15/23epatic Function Panel 10/15/23Lipid Panel 10/15/23emoglobin and Hematocrit 10/15/23PSA Total 10/15/23 [facility] 10-15-2023 Note Patient Education Urology Hypogonadism, Male [...] Follow these instructions at home: ? Take ghrr-fmf-znmysxn and prescription medicines only as told by [...] provider. Document Revised: (more content not included)... [facility] 03-19-2023 Evaluation note Encounter Date [...] today 120s/80s, he reports white coat syndrome. [employer] Other 12-14-2023 Evaluation note* Encounter Date Diagnosis [...] (suspected) exposure to covid-19 (ICD-10 - Z20.822) [employer] Other 07-19-2023 Hospital Discharge instructions Patient Education [...] therapy. Follow these instructions at home: Take blgn-flv-vjupmlv and prescription medicines only as told by [...] provider. Document Revised: 11/17/2020 Document Reviewed: 11/17/[address] [employer] Patient Education 2022 [employer]. Follow Up Care 08/31/2022 12:38:12 With:MAXIMILIANO MAIER, EWA Bynum, URL Address: [address] [place] [address] When: Unknown [facility] 01-16-2023 Hospital Discharge instructions Patient [...] 06/24/2001 Document Revised: 07/09/2019 Document Reviewed: 02/11/2017 [employer] Patient Education 2020 [employer]. Follow Up Care 10/16/2021 15:07:22 With:SCOTT HOANG, Murali W, URL Address: [address] [place], [place] [id number]- When:6 months Comments:PSA & testosterone [facility] 07-18-2022 Hospital Discharge instructions Patient Education 10/16/2021 [...] urethra. Follow these instructions at home: Take qdwa-zeh-yyjrjsp and prescription medicines only as told by [...] 03/18/2006 Document Revised: 02/10/2019 Document Reviewed: 04/22/[address] [employer] Patient Education 2020 [employer]. Follow Up Care 04/17/2021 14:02:48 With:Murali SCHRADER MD, URL Address: [address] [place] [address]- When:3 months Comments:Testosterone level [facility] Evaluation + Plan note Future Appointments Appointment Date:04/16/2022 02:15:00 PM Scheduled Provider:Murali SCHRADER MD Location:[facility] Appointment Type:URO Office Visit Diagnostic Tests Pending * Testosterone Level Total 10/16/21 [facility] Evaluation + Plan note Future Appointments Appointment Date:10/15/2022 02:15:00 PM Scheduled Provider:Murali SCHRADER MD Location:[facility] Appointment Type:URO Office Visit Diagnostic Tests Pending * PSA Total 04/16/22 * Testosterone Level Total 04/16/22 [facility] Evaluation + Plan note Future Appointments Appointment Date:10/23/2023 01:20:00 PM Scheduled Provider:EWA VIERA PA-C Location:[facility] Appointment Type:URO Office Visit Diagnostic Tests Pending * PSA Total 08/31/23 * Testosterone Level Total 10/17/22 * Hemoglobin and Hematocrit 08/31/23 * Hepatic Function Panel 08/31/23 * Lipid Panel 08/31/23 [facility] [employer] Other Evaluation note* Diagnosis Onset Date Resolution Status Bee sting reaction acute [facility] Work Phone: Evaluation note* Diagnosis Onset Date Resolution Status Bee sting reaction acute Acute maxillary sinusitis, unspecified acute [facility] Work Phone: History general Narrative - Reported* Type Description Date Medical History glaucoma Medical History insomnia Medical History GERD (gastroesophageal reflux di sease) Medical History Hypothyroidism Surgical History tonsillectomy Surgical History appendectomy Surgical History carpal tunnel release right Hospitalization History see above [employer] Other Hospital course Narrative No data available for this section [facility] [employer] Progress note No data available for this section [facility] Summary Purpose Family History Relationship Condition Age at Onset Recorded Date/T mason father Unknown mother Unknown Advance Directives Advance Directive Response Recorded Date/ Time Advance Directives No October 31 2:36pm Chief Complaint and Reason for Visit Chief Complaint bug bite on left bearden d,foot Reason for Visit Bee sting reaction Chief Complaint bug bite on left bearden d,foot cough,congestion Reason for Visit Bee sting reaction Acute maxillary sinusitis, unspecified Additional Source Comments (unrecognized sect ion and content) No Status Records FoundNo Status Records FoundNo Status Records FoundNo Status Records Found INFORMATION SOURCE (unrecogn ized section and content) DATE CREATED AUTHOR 06/20/2018 [facility] DATE CREATED AUTHOR AUTHOR'S ORGANIZ ATION 05/29/2022 [facility] DATE CREATED AUTHOR AUTHOR'S ORGANIZ ATION 10/17/2023 Aidan Solomon [facility] DATE CREATED AUTHOR AUTHOR'S ORGANIZ ATION 12/14/[address] [facility] Care Team (unrecognized sect ion and content) Team Status: Active Member Role Status Dates PHYSICIAN NO FAMILY Primary Care Provider Active Team Status: Inactive Member Role Status Dates PHYSICIAN NO FAMILY Primary Care Provider Active Start: November 01, 2023 End: November 01, 2023 Magnolia Costa APRN Attending Provider Active S tart: November 01, 2023 End: November 01, 2023 Team Status: Inactive Member Role Status Dates PHYSICIAN NO FAMILY Primary Care Provider Active Start: December 28, 2023 End: December 28, 2023 Paige Melendrez APRN Attending Provider Active Start: December 28, 2023 End: December 28, 2023 REASON FOR VISIT (unrecogniz ed section [...] BE BASED ON THE PRIMARY CLINICAL RECORDS. [employer] provides no warranty or guarantee of the accuracy or completeness of information in this document.
--- NOTE | 2023-12-31 13:15 | ECG_ITS ---
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
--- NOTE | 2023-12-31 13:15 | CT_ITS ---
The [address] [address] Patient Name: ALEXSANDER GOVEA MRN: [id number] date: 1945 Sex: M Assigned Patient Location: ER Current Patient Location: ER Accession/Order Number: [id number] Exam Date: 12/31/2023 13:25 Report Date: 12/31/2023 13:46 At the request of: TRISHA DELVALLE Procedure: CT stroke head/brain wo con NONCONTRAST HEAD CT COMPARISON: None. CLINICAL HISTORY: None provided. TECHNIQUE: Routine noncontrast images of the brain obtained. CT examination of the head without IV contrast. Dose reduction techniques were achieved by using: automated exposure control and/or adjustment of mA and /or kV according to patient size and/or use of iterative reconstruction technique. FINDINGS: Paranasal sinuses and mastoid air cells are clear. Intraorbital contents are unremarkable. No acute bony abnormality. Intracranially, there is no evidence of hemorrhage, mass effect, or midline shift. Ventricles and cisternal spaces are age appropriate. There are dense carotid vascular calcifications noted. CT/CT stroke head/brain wo con IMPRESSION: No acute intracranial abnormality. Electronically authenticated by: KASANDRA RAMOS Date: 12/31/2023 13:46
--- NOTE | 2023-12-31 13:15 | XR_ITS ---
The [address] [address] Patient Name: ALEXSANDER GOVEA MRN: [id number] date: 1945 Sex: M Assigned Patient Location: ER Current Patient Location: ER Accession/Order Number: [id number] Exam Date: 12/31/2023 13:25 Report Date: 12/31/2023 13:45 At the request of: TRISHA DELVALLE Procedure: XR chest 1V EXAMINATION: XR chest 1V HISTORY: CVA COMPARISON: No relevant comparison available. TECHNIQUE: AP portable FINDINGS: LUNGS: No significant pulmonary parenchymal abnormalities. VASCULATURE: No increased pulmonary vasculature. PLEURA: No pneumothorax, effusion, or pleural thickening. CARDIAC: No cardiomegaly or cardiac silhouette abnormality. MEDIASTINUM: No visible mass or adenopathy. BONES: No fracture or visible bone lesion. OTHER: Negative. XR/XR chest 1V IMPRESSION: No acute cardiopulmonary process Electronically authenticated by: JAILENE MATTA Date: 12/31/2023 13:45
--- NOTE | 2023-12-31 13:23 | CT_ITS ---
The [address] [address] Patient Name: ALEXSANDER GOVEA MRN: [id number] date: 1945 Sex: M Assigned Patient Location: ER Current Patient Location: Accession/Order Number: [id number] Exam Date: 12/31/2023 14:11 Report Date: 12/31/2023 14:58 At the request of: TRISHA DELVALLE Procedure: CT angio neck EXAM: CT angiogram of the head and neck using 100 mL of IV iodinated contrast. 3D images were generated on an independent workstation for better evaluation of the vasculature. NASCET criteria were used when evaluating the carotid arteries. Dose reduction technique used: Automated exposure control and/or adjustment of the mA and/or kV according to patient size and/or use of iterative reconstruction technique. REASON FOR EXAM: Facial palsy COMPARISON: CT scan from earlier today FINDINGS: CTA: No large vessel occlusion. No significant intracranial arterial stenoses. No arterial dissections. No intracranial aneurysms. Patent dural venous sinuses. Bilateral common carotid, bilateral internal carotid and bilateral vertebral arteries are patent without significant stenosis, aneurysm or dissection in the neck. NON-VASCULAR: No mass effect or midline shift. No hydrocephalus. Remainder unremarkable. CT/CT angio neck IMPRESSION: No acute arterial abnormalities in the head or neck. Electronically authenticated by: BRENNA PULIDO Date: 12/31/2023 14:58
--- NOTE | 2023-12-31 13:23 | CT_ITS ---
The [address] [address] Patient Name: ALEXSANDER GOVEA MRN: [id number] date: 1945 Sex: M Assigned Patient Location: ER Current Patient Location: Accession/Order Number: [id number] Exam Date: 12/31/2023 14:11 Report Date: 12/31/2023 14:58 At the request of: TRISHA DELVALLE Procedure: CT angio head EXAM: CT angiogram of the head and neck using 100 mL of IV iodinated contrast. 3D images were generated on an independent workstation for better evaluation of the vasculature. NASCET criteria were used when evaluating the carotid arteries. Dose reduction technique used: Automated exposure control and/or adjustment of the mA and/or kV according to patient size and/or use of iterative reconstruction technique. REASON FOR EXAM: Facial palsy COMPARISON: CT scan from earlier today FINDINGS: CTA: No large vessel occlusion. No significant intracranial arterial stenoses. No arterial dissections. No intracranial aneurysms. Patent dural venous sinuses. Bilateral common carotid, bilateral internal carotid and bilateral vertebral arteries are patent without significant stenosis, aneurysm or dissection in the neck. NON-VASCULAR: No mass effect or midline shift. No hydrocephalus. Remainder unremarkable. CT/CT angio head IMPRESSION: No acute arterial abnormalities in the head or neck. Electronically authenticated by: BRENNA PULIDO Date: 12/31/2023 14:58
--- NOTE | 2023-12-31 13:23 | ED_ITS ---
Documented by User: MG Bean 12/31/23 16:14 HPI HPI - General Adult General Chief complaint: Weakness Stated complaint: CVA SYMPTOMS Time Seen by Provider: 12/31/23 13:16 Source: patient Mode of arrival: walk-in Limitations: no limitations History of Present Illness HPI narrative: Patient is a 78-year-old male with a history of hypertension who presents to the emergency department for evaluation of right-sided facial drooping that he noticed this morning on waking. Patient wears a CPAP at night, he states that he thought that the difference in his facial symmetry was due to the chinstrap from his CPAP. He states he went to work from 7 AM to noon and a coworker told him that he had facial drooping on the right side. He states his speech is thick but he has not had any aphasia, he did have some difficulty with drooling and tearing from the right eye. He denies any extremity weakness or paresthesias. He is currently being treated with antibiotics for nasal congestion that he noted last week. No fevers or vomiting. No chest pain or shortness of breath. Related Data Home Medications ?Medication ?Instructions ?Recorded ?Confirmed loratadine 10 mg tablet (Allergy 10 mg PO Q24H 12/31/23 12/31/23 Relief (loratadine)) testosterone cypionate 100 mg/mL 100 mg subcut Q7D 12/31/23 12/31/23 intramuscular oil timolol maleate 0.25 % eye drops 1 drp ophthalmic (eye) DAILY 12/31/23 12/31/23 valsartan 80 mg tablet 80 mg PO DAILY 12/31/23 12/31/23 zolpidem 12.5 mg tablet,extended 12.5 mg PO DAILY 12/31/23 12/31/23 release,multiphase Previous Rx's ?Medication ?Instructions ?Recorded methylprednisolone 4 mg tablets in See Rx Instructions .Route 12/31/23 a dose pack (Medrol (Jean-Claude)) .COMPLEX #21 ea Allergies Allergy/AdvReac Type Severity Reaction Status Date / Time No Known Drug Allergies Allergy Verified 11/02/23 09:36 Opioid HPI Opioid Management Most Recent Opioid Data: No Data to Display Review of Systems ROS Constitutional Denies: fever or chills Eyes Denies: change in vision Ears, nose, mouth, and throat Reports: nasal congestion Cardiovascular Denies: chest pain Respiratory Denies: shortness of breath or cough Gastrointestinal Denies: abdominal pain, nausea or vomiting Musculoskeletal Denies: back pain, neck pain, extremity pain or extremity swelling Neurological Denies: numbness in extremities, weakness in extremities or dizziness Hematologic/Lymphatic Denies: easy bruising or easy bleeding [facility] Social History Little interest or pleasure in doing things: not at all Feeling down, depressed, or hopeless: not at all Exam Narrative Exam Narrative: Gen.: Awake, alert, in no distress Head: Normocephalic, atraumatic ENT: Drooping of the right corner of the mouth noted with drooping of the right corner of the eye. Respiratory: No respiratory distress, lungs clear bilaterally Cardio: Regular rate and rhythm Gastrointestinal: Abdomen is soft, nondistended and nontender to palpation Extremities: Moves extremities equally, no injuries noted Psych: Normal mood and affect Neuro: NIH stroke scale of 4 for facial palsy and mild dysarthria Skin: Warm, dry, intact Constitutional Vital Signs, click to edit/add: Last Vital Signs Temp 98.0 F 12/31/23 13:03 Pulse 96 H 12/31/23 13:55 Resp 18 12/31/23 13:55 BP 155/91 H 12/31/23 13:55 Pulse Ox 98 12/31/23 13:55 O2 Del Method Room Air 12/31/23 13:55 Course Vital Signs Vital signs: Vital Signs Temperature 98.0 F 12/31/23 13:03 Pulse Rate 102 H 12/31/23 13:03 Respiratory Rate 18 12/31/23 13:03 Blood Pressure 178/105 H 12/31/23 13:03 Pulse Oximetry 97 12/31/23 13:03 Oxygen Delivery Method Room Air 12/31/23 13:03 Temperature 98.0 F 12/31/23 13:03 Pulse Rate 96 H 12/31/23 13:55 Respiratory Rate 18 12/31/23 13:55 Blood Pressure 155/91 H 12/31/23 13:55 Pulse Oximetry 98 12/31/23 13:55 Oxygen Delivery Method Room Air 12/31/23 13:55 Medical Decision Making MDM Narrative Medical decision making narrative: Patient with no peripheral symptoms and exam consistent with Gordon's palsy. Stroke workup was obtained including noncontrast head CT, CT angio of the head and neck and all the studies are within normal limits. Vital signs are within normal limits, patient has had no progression of his symptoms in the emergency department. I did discuss the case with [facility] [place] neurology, Dr. Bronson. Patient was reevaluated by attending physician, based on the patient's clinical exam, we do not feel he needs to be admitted for observation and can be treated with steroids for home. Please see attending physician's note for further documentation, follow-up closely with PCP and return to the ER if symptoms change or worsen. SHARED APC VISIT, PHYSICIAN ATTESTATION: [id number] I performed a substantive part of the MDM during the patient?s E/M visit. I personally evaluated and examined the patient. I personally made or approved the documented management plan and acknowledge its risk of complications. Medical Records Medical records reviewed: Yes I reviewed the patient's medical records Lab Data Lab results reviewed: Yes I reviewed the patient's lab results Labs: Lab Results 12/31/23 Range/Units 13:20 WBC 8.0 (4.0-11.0) 10^3/uL RBC 5.66 (4.70-6.10) 10^6/uL Hgb 16.1 (14.0-18.0) g/dL Hct 48.3 (42.0-54.0) % MCV 85.3 (80.0-94.0) fL MCH 28.4 (25.9-34.0) pg MCHC 33.3 (29.9-35.2) g/dL RDW 14.0 (11.0-15.0) % Plt Count 163 (150-450) 10^3/uL MPV 9.6 (9.5-13.5) fL Neut % (Auto) 63.7 (43.0-75.0) % Lymph % (Auto) 26.7 (20.5-60.0) % [place] % (Auto) 8.0 (1.7-12.0) % Eos % (Auto) 1.0 (0.9-7.0) % Baso % (Auto) 0.3 (0.2-2.0) % Neut # (Auto) 5.1 (1.4-6.5) 10^3/uL Lymph # (Auto) 2.1 (1.2-3.8) 10^3/uL [place] # (Auto) 0.6 (0.3-0.8) 10^3/uL Eos # (Auto) 0.1 (0.0-0.7) 10^3/uL Baso # (Auto) 0.0 (0.0-0.1) 10^3/uL Abs Immat Gran (auto) 0.02 (0.00-0.03) 10^3/uL Imm/Tot Granulo (auto) 0.3 (0.0-0.5) % PT 10.7 (9.0-11.6) sec INR 1.01 Sodium 136 (136-145) mmol/L Potassium 3.8 (3.5-5.1) mmol/L Chloride 103 (98-107) mmol/L Carbon Dioxide 22.6 (21.0-32.0) mmol/L Anion Gap 14.2 BUN 23.0 H (7.0-18.0) mg/dL Creatinine 1.46 H (0.70-1.30) mg/dL Est GFR ( Amer) 57 L (>=60) Est GFR (Non-Af Amer) 47 L (>=60) BUN/Creatinine Ratio 15.8 Glucose 146 H (74-106) mg/dL Lactate 1.4 (0.4-2.0) mmol/L Calcium 9.5 (8.5-10.1) mg/dL Total Bilirubin 0.4 (0.2-1.0) mg/dL AST 22 (15-37) U/L ALT 41 (16-63) U/L Alkaline Phosphatase 75 (46-116) U/L Troponin I High Sens 68.7 (4.0-76.1) pg/mL Total Protein 7.3 (6.4-8.2) g/dL Albumin 3.6 (3.4-5.0) g/dL Globulin 3.7 g/dL Albumin/Globulin Ratio 1.0 TSH 2.810 (0.358-3.740) uIU/mL Imaging Data CT scan - head: Attestation: I have reviewed the pertinent imaging results. Radiologist's impression: ITS Impressions Brain CT 12/31/23 13:15 IMPRESSION: No acute intracranial abnormality. Electronically authenticated by: KASANDRA RAMOS Date: 12/31/2023 13:46 Chest X-Ray 12/31/23 13:15 IMPRESSION: No acute cardiopulmonary process Electronically authenticated by: JAILENE MATTA Date: 12/31/2023 13:45 Head CTA 12/31/23 13:23 IMPRESSION: No acute arterial abnormalities in the head or neck. Electronically authenticated by: BRENNA PULIDO Date: 12/31/2023 14:58 Neck CTA 12/31/23 13:23 IMPRESSION: No acute arterial abnormalities in the head or neck. Electronically authenticated by: BRENNA PULIDO Date: 12/31/2023 14:58 ECG Data Attestation: I personally reviewed and interpreted this ECG as follows: (Normal sinus rhythm at a rate of 95, no acute ST elevation or ectopy. EKG reviewed by attending physician) Discharge Plan Discharge Chief Complaint: Weakness Clinical Impression: Gordon's palsy Patient Disposition: Home, Self-Care Time of Disposition Decision: 16:11 Condition: Good Prescriptions / Home Meds: New methylprednisolone [Medrol (Jean-Claude)] 4 mg tablets,dose pack See Rx Instructions .ROUTE .COMPLEX Qty: 21 0RF Rx Instructions: Taper as directed No Action loratadine [Allergy Relief (loratadine)] 10 mg tablet 10 mg PO Q24H timolol maleate 0.25 % drops 1 drp OPHTHALMIC (EYE) DAILY testosterone cypionate 100 mg/mL oil 100 mg subcut Q7D valsartan 80 mg tablet 80 mg PO DAILY zolpidem 12.5 mg tablet,ext release multiphase 12.5 mg PO DAILY Print Language: Azeri Instructions: Gordon Palsy (ED) Additional Instructions: Please follow up closely with your PCP for reevaluation Referrals: Physician,Non-Staff, [Physician] - 1 week Documented by User: Robert Pina MD 12/31/23 16:18 HPI HPI - General Adult General Chief complaint: Weakness Stated complaint: CVA SYMPTOMS Time Seen by Provider: 12/31/23 13:16 Related Data Home Medications ?Medication ?Instructions ?Recorded ?Confirmed loratadine 10 mg tablet (Allergy 10 mg PO Q24H 12/31/23 12/31/23 Relief (loratadine)) testosterone cypionate 100 mg/mL 100 mg subcut Q7D 12/31/23 12/31/23 intramuscular oil timolol maleate 0.25 % eye drops 1 drp ophthalmic (eye) DAILY 12/31/23 12/31/23 valsartan 80 mg tablet 80 mg PO DAILY 12/31/23 12/31/23 zolpidem 12.5 mg tablet,extended 12.5 mg PO DAILY 12/31/23 12/31/23 release,multiphase Previous Rx's ?Medication ?Instructions ?Recorded methylprednisolone 4 mg tablets in See Rx Instructions .Route 12/31/23 a dose pack (Medrol (Jean-Claude)) .COMPLEX #21 ea Allergies Allergy/AdvReac Type Severity Reaction Status Date / Time No Known Drug Allergies Allergy Verified 11/02/23 09:36 Opioid HPI Opioid Management Most Recent Opioid Data: No Data to Display [facility] Social History Little interest or pleasure in doing things: not at all Feeling down, depressed, or hopeless: not at all Exam Constitutional Vital Signs, click to edit/add: Last Vital Signs Temp 98.0 F 12/31/23 13:03 Pulse 96 H 12/31/23 13:55 Resp 18 12/31/23 13:55 BP 155/91 H 12/31/23 13:55 Pulse Ox 98 12/31/23 13:55 O2 Del Method Room Air 12/31/23 13:55 Course Vital Signs Vital signs: Vital Signs Temperature 98.0 F 12/31/23 13:03 Pulse Rate 102 H 12/31/23 13:03 Respiratory Rate 18 12/31/23 13:03 Blood Pressure 178/105 H 12/31/23 13:03 Pulse Oximetry 97 12/31/23 13:03 Oxygen Delivery Method Room Air 12/31/23 13:03 Temperature 98.0 F 12/31/23 13:03 Pulse Rate 96 H 12/31/23 13:55 Respiratory Rate 18 12/31/23 13:55 Blood Pressure 155/91 H 12/31/23 13:55 Pulse Oximetry 98 12/31/23 13:55 Oxygen Delivery Method Room Air 12/31/23 13:55 Medical Decision Making MDM Narrative Medical decision making narrative: Patient with no peripheral symptoms and exam consistent with Gordon's palsy. Stroke workup was obtained including noncontrast head CT, CT angio of the head and neck and all the studies are within normal limits. Vital signs are within normal limits, patient has had no progression of his symptoms in the emergency department. I did discuss the case with [facility] [place] neurology, Dr. Bronson. Patient was reevaluated by attending physician, based on the patient's clinical exam, we do not feel he needs to be admitted for observation and can be treated with steroids for home. Please see attending physician's note for further documentation, follow-up closely with PCP and return to the ER if symptoms change or worsen. SHARED APC VISIT, PHYSICIAN ATTESTATION: [id number] I performed a substantive part of the MDM during the patient?s E/M visit. I personally evaluated and examined the patient. I personally made or approved the documented management plan and acknowledge its risk of complications. JK 4:15pm CT is negative. The only neurologic symptoms he has is weakness on the right side of his face and he does not have forehead sparing. 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 At this point I do not suspect a stroke. He is discharged home on a Medrol Dosepak and he will follow-up with his family physician. He was instructed to return to the emergency department if he develops any new symptoms. Treatment diagnosis and follow-up were discussed with the patient and his . Lab Data Labs: Lab Results 12/31/23 Range/Units 13:20 WBC 8.0 (4.0-11.0) 10^3/uL RBC 5.66 (4.70-6.10) 10^6/uL Hgb 16.1 (14.0-18.0) g/dL Hct 48.3 (42.0-54.0) % MCV 85.3 (80.0-94.0) fL MCH 28.4 (25.9-34.0) pg MCHC 33.3 (29.9-35.2) g/dL RDW 14.0 (11.0-15.0) % Plt Count 163 (150-450) 10^3/uL MPV 9.6 (9.5-13.5) fL Neut % (Auto) 63.7 (43.0-75.0) % Lymph % (Auto) 26.7 (20.5-60.0) % [place] % (Auto) 8.0 (1.7-12.0) % Eos % (Auto) 1.0 (0.9-7.0) % Baso % (Auto) 0.3 (0.2-2.0) % Neut # (Auto) 5.1 (1.4-6.5) 10^3/uL Lymph # (Auto) 2.1 (1.2-3.8) 10^3/uL [place] # (Auto) 0.6 (0.3-0.8) 10^3/uL Eos # (Auto) 0.1 (0.0-0.7) 10^3/uL Baso # (Auto) 0.0 (0.0-0.1) 10^3/uL Abs Immat Gran (auto) 0.02 (0.00-0.03) 10^3/uL Imm/Tot Granulo (auto) 0.3 (0.0-0.5) % PT 10.7 (9.0-11.6) sec INR 1.01 Sodium 136 (136-145) mmol/L Potassium 3.8 (3.5-5.1) mmol/L Chloride 103 (98-107) mmol/L Carbon Dioxide 22.6 (21.0-32.0) mmol/L Anion Gap 14.2 BUN 23.0 H (7.0-18.0) mg/dL Creatinine 1.46 H (0.70-1.30) mg/dL Est GFR ( Amer) 57 L (>=60) Est GFR (Non-Af Amer) 47 L (>=60) BUN/Creatinine Ratio 15.8 Glucose 146 H (74-106) mg/dL Lactate 1.4 (0.4-2.0) mmol/L Calcium 9.5 (8.5-10.1) mg/dL Total Bilirubin 0.4 (0.2-1.0) mg/dL AST 22 (15-37) U/L ALT 41 (16-63) U/L Alkaline Phosphatase 75 (46-116) U/L Troponin I High Sens 68.7 (4.0-76.1) pg/mL Total Protein 7.3 (6.4-8.2) g/dL Albumin 3.6 (3.4-5.0) g/dL Globulin 3.7 g/dL Albumin/Globulin Ratio 1.0 TSH 2.810 (0.358-3.740) uIU/mL Imaging Data CT scan - head: Radiologist's impression: ITS Impressions Brain CT 12/31/23 13:15 IMPRESSION: No acute intracranial abnormality. Electronically authenticated by: KASANDRA RAMOS Date: 12/31/2023 13:46 Chest X-Ray 12/31/23 13:15 IMPRESSION: No acute cardiopulmonary process Electronically authenticated by: JAILENE MATTA Date: 12/31/2023 13:45 Head CTA 12/31/23 13:23 IMPRESSION: No acute arterial abnormalities in the head or neck. Electronically authenticated by: BRENNA PULIDO Date: 12/31/2023 14:58 Neck CTA 12/31/23 13:23 IMPRESSION: No acute arterial abnormalities in the head or neck. Electronically authenticated by: BRENNA PULIDO Date: 12/31/2023 14:58 Discharge Plan Discharge Chief Complaint: Weakness Clinical Impression: Gordon's palsy Patient Disposition: Home, Self-Care Time of Disposition Decision: 16:11 Condition: Good Prescriptions / Home Meds: New methylprednisolone [Medrol (Jean-Claude)] 4 mg tablets,dose pack See Rx Instructions .ROUTE .COMPLEX Qty: 21 0RF Rx Instructions: Taper as directed No Action loratadine [Allergy Relief (loratadine)] 10 mg tablet 10 mg PO Q24H timolol maleate 0.25 % drops 1 drp OPHTHALMIC (EYE) DAILY testosterone cypionate 100 mg/mL oil 100 mg subcut Q7D valsartan 80 mg tablet 80 mg PO DAILY zolpidem 12.5 mg tablet,ext release multiphase 12.5 mg PO DAILY Print Language: Azeri Instructions: Gordon Palsy (ED) Additional Instructions: Please follow up closely with your PCP for reevaluation Referrals: Physician,Non-Staff, MD [Physician] - 1 week
[2023-12-31 13:34] LABS: Basophils Percent Auto 0.3 % (0.2-2.0); Eosinophils Absolute Auto 0.1 10^3/uL (0.0-0.7); Hematocrit 48.3 % (42.0-54.0); Hemoglobin 16.1 g/dL (14.0-18.0); Immature Granulocytes Abs Auto 0.02 10^3/uL (0.00-0.03); Immature Granulocytes Pct Auto 0.3 % (0.0-0.5); Lymphocytes Absolute Auto 2.1 10^3/uL (1.2-3.8); Lymphocytes Percent Auto 26.7 % (20.5-60.0); Mean Corpuscular HGB Conc 33.3 g/dL (29.9-35.2); Mean Corpuscular Hemoglobin 28.4 pg (25.9-34.0); Mean Corpuscular Volume 85.3 fL (80.0-94.0); Mean Platelet Volume 9.6 fL (9.5-13.5); Monocytes Absolute Auto 0.6 10^3/uL (0.3-0.8); Neutrophils Absolute Auto 5.1 10^3/uL (1.4-6.5); Neutrophils Percent Auto 63.7 % (43.0-75.0); Platelet Count 163 10^3/uL (150-450); Red Blood Count 5.66 10^6/uL (4.70-6.10)
[2023-12-31 13:42] LABS: INR 1.01; Prothrombin Time 10.7 sec (9.0-11.6)
[2023-12-31 13:47] LABS: Lactate/Lactic Acid 1.4 mmol/L (0.4-2.0)
[2023-12-31 13:48] LABS: Alanine Aminotransferase 41 U/L (16-63); Albumin Level 3.6 g/dL (3.4-5.0); Alkaline Phosphatase 75 U/L (46-116); Anion Gap 14.2; Aspartate Amino Transferase 22 U/L (15-37); BUN Creatinine Ratio 15.8; Bilirubin Total 0.4 mg/dL (0.2-1.0); Calcium 9.5 mg/dL (8.5-10.1); Carbon Dioxide 22.6 mmol/L (21.0-32.0); Chloride 103 mmol/L (98-107); Estimated GFR (African America 57 (>=60); Estimated GFR (Non-African Ame 47 (>=60); Globulin 3.7 g/dL; Glucose 146 mg/dL (74-106); Potassium 3.8 mmol/L (3.5-5.1); Sodium 136 mmol/L (136-145); Total Protein 7.3 g/dL (6.4-8.2); Troponin I High Sensitivity 68.7 pg/mL (4.0-76.1)
[2023-12-31 13:55] VITALS: BP 155/91; PULSE 96; O2SAT 98
[2023-12-31 16:23] VITALS: BP 160/90; PULSE 81
== END 2023-12-31 16:24 | disposition home or self-care (01) ==
PROVIDERS: Physician Assistant; Emergency Provider Emergency Medicine
DX: G51.0 Bell's palsy (principal); I10 Essential (primary) hypertension
CPT/HCPCS: 36415; 70450; 70496; 70498; 71045; 80053; 83605; 84443; 84484; 85025; 85610; 93005; 99285; Q9967

== ENCOUNTER 2024-05-16 09:21 | Outpatient (OUT) | payer MEDICARE, OTHER, SELFPAY ==
--- OUTSIDE RECORDS SUMMARY | 2024-05-16 09:24 | XMS_ITS | CCD ---
Author Organization [facility] Care Team Providers Care Polygraph Examiner Name Role Phone NARCISO MARINELLI Attending Unavailable RICE, MURALI Blancas Referring Unavailable FANNING, NARCISO Zapien Referring Unavailable FANNING, NARCISO Zapien Attending Unavailable RUPERTO BLAS Referring Unavailab abelardo Gonzalez, Frederick Bradley Primary Care Physician [phone] LISA, DR HARMAN Primary Care Unavailable RICE, [...] Unavailable IgorMagnolia pinzon Unavailable Myrna Isbell Unavailable ERASMO RUSS Consulting Unavailab le INPATIENT, TELENEUROLOGY Consulting Unavail able Roddy Orona MD Primary Care Provider Josh Hearn NP Unavailable Frederick Gonzalez MD Primary Care Provider JOSH HEARN Attending UnavailJOSH Chavez Attending UnavailBRII Trivedi Attending Unavailable APLINGBRII Referring Unavailable APLINGBRII Attending Unavailable EWA VIERA Attending Unavailable EWA VIERA Attending Unavailable LISA, DO FREDERICK Bradley Attending Unavailable FREDERICK GONZALEZ Primary Care Unavailable LISA, DO FREDERICK Bradley Attending Unavailable FREDERICK GONZALEZ Primary Care Unavailable Allergies Allergy Classification Reported Allergen(s) Allergy Type Date of Onset Reaction(s) Facility (1 source) No Known Medication Allergies; 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: [No Known Medication Allergies] Propensity to adverse reactions (disorder) [facility] Repository Medications Current Medications Medication Drug Class(es) Dates Sig (Normalized) Sig (Original) Albuterol Sulfate 90 mcg/actuation HFA aerosol inhaler (1 source) Start: 05-09-2024 Albuterol Sulfate 90 mcg/actuation HFA aerosol inhaler Active 2 INH INHALATION EVERY 4-6 HOURS as needed for shortness of breath or wheezing 6.7 May 09, 2024 12:00am azithromycin 250 mg oral tablet (2 sources) Macrolide Antimicrobial Start: 03-15-2023 Zithromax Z-Jean-Claude 250 MG as directed Orally Mar, Active benzonatate 100 mg oral capsule (1 source) Non-narcotic Antitussive Start: 05-09-2024 take 1 capsule by mouth three times daily as needed for cough Benzonatate 100 mg capsule Active 100 MG PO Three times daily as needed for cough 7 May 09, 2024 12:00am cholecalciferol (Vitamin D3) 200 Unit tablet split tablet (13 sources) cholecalciferol (Vitamin D3) 200 Unit tablet split tablet Take by mouth Active fluticasone propionate 0.05 mg/actuat metered dose nasal spray (15 sources) Corticosteroid Start: 12-12-2023 End: 12-11-2024 Fluticasone Propionate 50 mcg/actuation spray,suspension Active INTRANASAL December 27, 2023 11:00pm levothyroxine sodium 0.075 mg oral tablet (6 [...] day Active loratadine 10 mg oral tablet (16 sources) Start: 12-28-2023 take 1 tablet by mouth once daily at bedtime Allergy Relief 10 MG tablet Indications: Seasonal allergies TAKE 1 TABLET BY MOUTH ONCE DAILY AT BEDTIME 30 tablet 2 03/05/2024 Active Start: 12-12-2023 End: 03-05-2024 take 1 capsule by mouth at bedtime Loratadine 10 MG capsule Indications: Seasonal allergies Take 10 mg by mouth at bedtime 30 capsule 2 12/12/2023 03/05/2024 Discontinued omeprazole 10 mg delayed release oral capsule (20 sources) Proton Pump Inhibitor Start: 12-29-2018 take 1 capsule by mouth once daily Omeprazole 10 mg capsule,delayed release(DR/EC) Active 10 MG PO Daily October 31, 2023 11:00pm take 1 capsule by mouth once skye ly PriLOSEC 10 MG 1 capsule 30 minutes before morning meal Orally Once a day Active predniSONE 20 mg oral tablet (1 source) Start: 05-09-2024 take 2 tablets by mouth once daily Prednisone 20 mg tablet Active 40 MG PO Daily 6 May 09, 2024 12:00am tadalafil 5 mg oral tablet (17 sources) Phosphodiesterase 5 Inhibitor Start: 10-23-2018 take 1 tablet by mouth once daily Cialis 5 mg oral tablet 5 mg = 1 tab(s), Oral, Daily Start Date: 10/23/18 Status: Ordered Temazepam (5 sources) Benzodiazepine Start: 12-25-2018 temazepam 30 mg Start Date: 12/25/18 Status: Ordered Temazepam Not-Ta radha/PRN testosterone cypionate 100 mg/ml injectable solution (9 sources) Androgen Start: 11-01-2023 Testosterone C ypionate 100 mg/mL oil Active 50 MG IM .Q5October 31, 2023 11:00pm Start: 11-01-2023 Testosterone C ypionate Active 50 MG IM .Q5November 01, 2023 12:00am Start: 09-17-2023 testosterone c ypionate 100 mg/mL intramuscular solution 50 mg, IntraMuscular, q5day, # 10 mL, Refills(s) 5, Pharmacy: [id number], 172, cm, 10/17/22 13:50:00 EDT, Height/Length Dosing, 95, kg, 10/17/22 13:50:00 EDT, Weight Dosing Start Date: 09/17/23 Status: Ordered Start: 10-17-2022 testosterone c ypionate 100 mg/mL intramuscular solution 50 mg, IntraMuscular, q5day, # 10 mL, Refills(s) 5, Pharmacy: [id number], 172, cm, 10/17/22 13:50:00 EDT, Height/Length Dosing, 95, kg, 10/17/22 13:50:00 EDT, Weight Dosing Start Date: 10/17/22 Status: Ordered Start: 01-22-2022 testosterone c ypionate 100 mg/mL intramuscular solution 50 mg, IntraMuscular, q5day, # 10 mL, Refills(s) 3, [facility]: [id number], 172, cm, 10/16/21 14:53:00 EDT, Height/Length Dosing, 95, kg, 10/16/21 14:53:00 EDT, Weight Dosing Start Date: 01/22/22 Status: Ordered Start: 10-16-2021 testosterone c ypionate 100 mg/mL intramuscular solution 50 mg, IntraMuscular, q7day, # 10 mL, Refills(s) 3, [facility]: [id number], 172, cm, 10/16/21 14:53:00 EDT, Height/Length Dosing, 95, kg, 10/16/21 14:53:00 EDT, Weight Dosing Start Date: 10/16/21 Status: Ordered Start: 09-28-2019 Depo-Testoster one 50 mg, IntraMuscular Start Date: 09/28/19 Status: Ordered Testosterone Cypionate 50 MG/ML (3 sources) Testosterone Cyp ionate 50 MG/ML as directed Injection Active timolol 2.5 mg/ml ophthalmic solution (20 sources) beta-Adrenergic Lala Start: 12-28-2023 take 1 drop(s) into the eye(s) once Timolol Maleate 0.25 % drops Active 1 DROPS OPHTHALMIC Once December 27, 2023 11:00pm Start: 12-28-2023 take 1 drop(s) into the [...] Refill(s) 0 Start Date: 10/10/20 Status: Ordered take 1 drop(s) into the eye(s) once daily timolol (Timoptic) 0.5 % ophthalmic solution Administer 1 drop into both eyes Daily Active Timolol Maleate Active zolpidem tartrate 12.5 mg extended release oral tablet (20 sources) gamma-Aminobutyric Acid-ergic Agonist Start: 11-01-2023 Zolpidem Active MG PO November 01, 2023 12:00am Start: 10-17-2022 Zolpidem 12.5 mg tablet,ext release multiphase Active MG PO October 31, 2023 11:00pm Completed/Discontinued Medications Medication Drug Class(es) Dates Sig (Normalized) Sig (Original) amoxicillin 875 mg / clavulanate 125 mg oral tablet (3 sources) Penicillin-class Antibacterial Start: 12-28-2023 End: 05-09-2024 take 1 tablet by mouth every twelve hours Amoxicillin-Pot Clavulanate 875-125 mg tablet Discontinued 1 TAB PO Every 12 hours 18 01December 27, 2023 11:00pm May 09, 2024 9:29am Start: 03-19-2023 take 1 tablet by bryanna th every twelve hours Amoxicillin-Pot Clavulanate 875-125 MG 1 tablet Orally every 12 hrs for 10 day(s) Mar, Active 1 ml methylPREDNISolone acetate 40 mg/ml injection (14 sources) Corticosteroid Start: 03-09-2024 End: 03-09-2024 methylPREDNISolone acetate (DEPO-Medrol) injection 40 mg Start: 03-09-2024 End: 03-09-2024 40 mg, Intra-articular, Once PRN Procedure, Starting on Sat03/09/24 at 1025, For 1 dose Start: 02-17-2024 End: 02-17-2024 methylPREDNISolone acetate (DEPO-Medrol) injection 40 mg Start: 02-17-2024 End: 02-17-2024 40 mg, Intra-articular, Once PRN Procedure, Starting on Sat02/17/24 at 1157, For 1 dose Start: 11-01-2023 End: 12-28-2023 take 1 tablet by mouth once Methylprednisolone (Medrol (Jean-Claude)) 4 mg tablets,dose pack Discontinued 0 PO per package directions October 31, 2023 11:00pm December 28, 2023 10:19am PO PER PKG DIR Start: 12-31-2019 Medrol 4 MG as directed Orally for 6 days Dec, Not-Taking/PRN Timolol 0.5 % drops (1 source) Start: 11-01-2023 End: 12-28-2023 take 0.5 drop(s) into the eye(s) once daily Timolol 0.5 % drops Discontinued 1 DROPS EYE-BOTH Daily October 31, 2023 11:00pm December 28, 2023 10:22am Triamcinolone (3 sources) Corticosteroid Start: 12-31-2019 KENALOG - 10 mg Dec, 40 mg valsartan 40 mg oral tablet (20 sources) Angiotensin 2 Receptor Lala Start: 12-28-2023 End: 12-28-2023 take 2 tablets by mouth once daily Valsartan 40 mg tablet Discontinued 80 MG PO Daily December 28, 2023 10:20am December 28, 2023 10:22am Start: 12-28-2023 End: 12-28-2023 take 80 mg by mouth once daily Valsartan Discontinued 80 MG PO Daily December 28, 2023 11:20am December 28, 2023 11:22am Start: 12-28-2023 take 1 tablet by bryanna th once daily Valsartan 80 mg tablet Active 80 MG PO Daily December 27, 2023 11:00pm Start: 11-01-2023 End: 12-28-2023 take 1 tablet by mouth once daily Valsartan 40 mg tablet Discontinued 40 MG PO Daily October 31, 2023 11:00pm December 28, 2023 10:22am Start: 10-10-2020 End: 12-12-2023 take 1 tablet by mouth at bedtime valsartan (Diovan) 80 MG tablet Indications: Primary hypertension (CMS/HCC) Take 1 tablet (80 mg) by mouth at bedtime 90 tablet 12/12/2023 Active take 1 tablet by bryanna th every twelve hours Valsartan 40 MG 1 tablet Orally Twice a day Active Problems Active Problems Problem Classification Problem Date Documented Da te Episodic/Chronic Administrative/social admission (13 sources) First encounter by subject; 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: [Persons encountering health services in other specified circumstances] Onset: 12-12-2023 12-12-2023 Episodic Chronic obstructive pulmonary disease and bronchiectasis (2 sources) Bronchitis; 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: [Bronchitis, not specified as acute or chronic] 05-09-2024 Episodic Coagulation and hemorrhagic disorders (1 source) Thrombocytopenia, unspecified; 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: [THROMBOCYTOPENIA UNSPECIFIED] Onset: 09-12-2021 Chronic Essential hypertension (16 sources) Essential (primary) hypertension; 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: [Essential hypertension] Onset: 09-12-2021 12-13-2023 Chronic Genitourinary symptoms and ill-defined conditions (20 sources) Delay when starting to pass urine; 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: [Microscopic hematuria] Onset: 10-17-2022 10-23-2018 Episodic Hyperplasia of prostate (20 sources) Benign prostatic hypertrophy with outflow obstruction; 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: [Benign prostatic hyperplasia with lower urinary tract symptoms] Onset: 09-01-2021 Chronic Osteoarthritis (8 sources) Arthritis of left glenohumeral joint; 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: [Primary osteoarthritis, left shoulder] 02-17-2024 Chronic Other aftercare (13 sources) Drug therapy finding; 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: [FPC (current) use of 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] Onset: 12-12-2023 12-12-2023 Episodic Other circulatory disease (1 source) Elevated blood-pressure reading, without diagnosis of hypertension Episodic Other endocrine disorders (4 sources) Testicular hypofunction; 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: [Testicular hypofunction] Onset: 10-16-2021 Chronic Other endocrine disorders (17 sources) Male hypogonadism; 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: [Testicular hypofunction] Onset: 12-12-2023 10-23-2018 Chronic Other endocrine disorders (5 sources) Testicular hypofunction; 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: [TESTICULAR HYPOFUNCTION] Onset: 09-07-2021 Chronic Other hematologic conditions (1 source) Secondary polycythemia; 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: [Secondary polycythemia] Onset: 05-29-2018 Episodic Other male genital disorders (4 sources) Impotence 10-23-2018 Chronic Other male genital disorders (13 sources) Male erectile dysfunction, unspecified; 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: [Impotence of organic origin] Onset: 12-12-2023 4 Chronic Other nervous system disorders (11 sources) Gordon's palsy; 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] Onset: 01-09-2024 01-09-2024 Episodic Other non-traumatic joint disorders (8 sources) Disorder of shoulder; 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: [Other specified joint disorders, left shoulder] 02-17-2024 Episodic Other non-traumatic joint disorders (4 sources) Pain in left shoulder; 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: [Pain in joint, shoulder region] 02-14-2024 Episodic Other nutritional; endocrine; and metabolic disorders (17 sources) Body mass index 30+ - obesity; 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: [Body mass index (BMI) 30.0-30.9, adult] Onset: 12-12-2023 04-04-2020 Chronic Other screening for suspected conditions (not mental disorders or infectious disease) (20 sources) Patient encounter status; 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: [Encounter for screening for lipoid disorders] Onset: 12-13-2023 12-13-2023 Episodic Other upper respiratory disease (15 sources) Seasonal allergic rhinitis; 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: [Other seasonal allergic rhinitis] Onset: 12-12-2023 12-13-2023 Chronic Other upper respiratory disease (3 sources) Seasonal allergy; 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: [Other seasonal allergic rhinitis] 03-05-2024 Chronic Other upper respiratory infections (6 sources) Acute pharyngitis, unspecified; 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: [Acute pansinusitis, unspecified] Episodic Poisoning by nonmedicinal substances (5 sources) Bee sting; 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: [Toxic effect of [...] Classification Problem Date Documented Da te Episodic/Chronic Other hematologic conditions (13 sources) Erythrocytosis; 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: [Secondary polycythemia] Onset: 05-29-2018 12-12-2023 Episodic Unclassified (1 source) Contact with and (suspected) exposure to covid-19 Z20.822 Results Test Name Value Interpretation Reference Range Facility Outside Recordson 05-11-2024 Outside Records [id number]#1.00OTG TIFF [facility] Outside Recordson 03-10-2024 Outside Records [id number]#1.00OTGT IFF [facility] No Panel Informationon 03-09 Brii Oconnor NP 03/09/2024 10:34 AM L Inj/Asp: L subacromial bursa on 03/09/2024 10:25 AM Indications: pain Details: 20 G needle, posterior approach Medications: 40 mg methylPREDNISolone acetate 40 MG/ML Utilizing aseptic technique with universal precautions . Pt given injection Left Shoulder SA space Procedure, treatment alternatives, risks and benefits explained, specific risks discussed. Consent was given by the patient. Patient was prepped and draped in the usual sterile fashion. [facility] No Panel Informationon 02-16 Brii Oconnor NP 02/17/2024 9:46 PM L Inj/Asp: L subacromial bursa on 02/17/2024 11:57 AM Indications: pain Details: 20 G needle, posterior approach Medications: 40 mg methylPREDNISolone acetate 40 MG/ML Utilizing aseptic technique with universal precautions . Pt given injection Left Shoulder SA space Procedure, treatment alternatives, risks and benefits explained, specific risks discussed. Consent was given by the patient. Patient was prepped and draped in the usual sterile fashion. [facility] Shoulder - left 2 Viewson 02-17-2024 Imaging Result: Xrays AP, axillary and y-scapula of the left shoulder performed on February 17, 2024 demonstrates bone on bone glenohumeral joint. Narrowing of the ac joint in addition. No fractures noted. Humerus centered within the glenoid. There is abnormal glenoid morphology. Impression Advanced arthritis of the glenohumeral joint. 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 [facility] Phloronol Radiology Study observation (narrative) [facility] - left 2 ViewsOr dered By: Narciso Zarate on 02-17-2024 [employer] Work Phone: Lab - Other Lab Resultson Lab - Other Lab Results [id number]#1.00O [facility] Outside Recordson 01-17-2024 Outside Records [id number]#1.00O [facility] Patient Provided Health Data on 01-17-2024 Patient Provided Health Data [id number]#1.00O [facility] Ambulatory Visit Summaryon 0 10-15-2023 Ambulatory Visit Summary Ambulatory Visit Summary LAMONT LOWERY :1945 MRN:[id number] Visit Date:09/27/2018 Ambulatory Visit Instructions Your Diagnosis [...] Every 5 days Male hypogonadism Pickup at [facility] Unchanged tadalafil (Cialis 5 mg oral tablet) 1 Tablets By Mouth Every day Unchanged timolol ophthalmic (Timolol GFS 0.5% Gel) Every day Unchanged valsartan (valsartan 80 mg Tab) By Mouth Every day Unchanged zolpidem (Ambien CR 12.5 mg Tab-ER) 1 Tablets By Mouth Once a day (at bedtime) as needed for for sleep Pharmacy Information [id number]: [address] [place] [id number] [phone] What When Comments Stop Taking aspirin Stop [...] choosing us for your care. Normal [facility] Urology Office/Clinic Noteon 10-15-2023 Urology [...] Contact Information MAXIMILIANO MAIER, EWA Zapien, URL [address] [place] [address] [phone] Additional Instructions: 1 year w/ PSA, LFTs, [...] History Family (more content not included)... Normal [facility] Comment on above: Result Comment: Elec tronically Signed By: EWA VIERA PA-C\.br\Date and Time Signed: 10/15/23 13:49 EDT\.br\Electronically Co-Signed By: Chhaya Mason\.br\Date and Time Co-Signed: 10/15/23 13:43 EDT Lab Reportson 09-12-2023 Lab Reports [id number]#1.00TIF F Normal [facility] Lab Reportson 06-17-2023 Lab Reports [id number]#1.00TIF F Normal [facility] COVID + FLU Quick Testingon 03-14-2023 SARS-CoV-2 (COVID-19) RNA STEFF+probe Ql (Unsp spec) Negative [facility] PAIEON Other COVID + FLU Quick Testing Negative [facility] Other Quick Strepon 03-14-2023 S. pyogenes Org specific cx Ql (Throat) Negative [facility] Other Quick Strep [facility] Other TESTOSTERONE, TOTALon 2022 Testosterone [Mass/Vol] 749 ng/dL Normal 264-916 [facility] Comment on above: Result Comment: Adul t male reference interval is based on a population of healthy nonobese males (BMI <30) between 19 and 39 years old. Travison, et.al. JCEM 2017,102;3252-0557. PMID: 31460192. Performed By: #### T ESTTOT #### [facility] [address] [place] [address] Dr. Lazaro Sam TESTOSTERONE, TOTALon 2021 Testosterone [Mass/Vol] 740 ng/dL Normal 264-916 [facility] Comment on above: Result Comment: Adul t male reference interval is based on a population of healthy nonobese males (BMI <30) between 19 and 39 years old. Abel, et.al. JCEM 2017,102;7382-3195. PMID: 08133521. Performed By: #### T ESTTOT #### [facility] [address] [address] [address] Lazaro Sam CBC AUTO DIFFon 09-08-2021 BASO # 0.0 103/ul Normal 0.0-0.1 [facility] Comment on above: Performed By: #### C BC #### [facility] [address] [address] [address] Lazaro Sam Basophils/100 WBC (Bld) 0.4 % Normal 0.2-2.0 [facility] Comment on above: Performed By: #### C BC #### [facility] [address] [place] [address] Dr. Lazaro Sam EO # 0.1 103/ul Normal 0.0-0.7 [facility] Comment on above: Performed By: #### C BC #### [facility] [address] [place] [address] Dr. Lazaro Sam Eosinophils/100 WBC (Bld) 0.6 % Critically low 0.9-7.0 [facility] Comment on above: Performed By: #### C BC #### [facility] [address] [place] [address] Dr. Lazaro Sam Erythrocyte distribution width (RBC) [Ratio] 13.7 % Normal 11.0-15.0 [facility] Comment on above: Performed By: #### C BC #### [facility] [address] [place] [address] Dr. Lazaro Sam Hematocrit (Bld) [Volume fraction] 52.4 % Normal 42.0-54.0 [facility] Comment on above: Performed By: #### C BC #### [facility] [address] [place] [address] Dr. Lazaro Sam Hemoglobin (Bld) [Mass/Vol] 17.3 g/dL Normal 14.0-18.0 [facility] Comment on above: Performed By: #### C BC #### [facility] [address] [place] [address] Dr. Lazaro Sam IG # 0.03 10e3/ul Normal 0.00-0.03 [facility] Comment on above: Performed By: #### C BC #### [facility] [address] [place] [address] Dr. Lazaro Sam IG % 0.4 % Normal 0.0-0.5 [facility] Comment on above: Performed By: #### C BC #### [facility] [address] [place] [address] Dr. Lazaro Sam LYMPH # 1.5 103/ul Normal 1.2-3.8 [facility] Comment on above: Performed By: #### C BC #### [facility] [address] [place] [address] Dr. Lazaro Sam Lymphocytes/100 WBC (Bld) 18.7 % Critically low 20.5-60.0 [facility] Comment on above: Performed By: #### C BC #### [facility] [address] [place] [address] Dr. Lazaro Sam MANUAL DIFF REQ NO Normal [facility] Comment on above: Performed By: #### C BC #### [facility] [address] [place] [address] Dr. Lazaro Sam MCH (RBC) [Entitic mass] 29.7 pg Normal 25.9-34.0 [facility] Comment on above: Performed By: #### C BC #### [facility] [address] [place] [address] Dr. Lazaro Sam MCHC (RBC) [Mass/Vol] 33.0 g/dL Normal 29.9-35.2 [facility] Comment on above: Performed By: #### C BC #### [facility] [address] [place] [address] Dr. Lazaro Sam MCV (RBC) [Entitic vol] 90.0 fL Normal 80.0-94.0 [facility] Comment on above: Performed By: #### C BC #### [facility] [address] [place] [address] Dr. Lazaro Sam MONO # 0.6 103/ul Normal 0.3-0.8 [facility] Comment on above: Performed By: #### C BC #### [facility] [address] [place] [address] Dr. Lazaro Sam Monocytes/100 WBC (Bld) 7.7 % Normal 1.7-12.0 [facility] Comment on above: Performed By: #### C BC #### [facility] [address] [place] [address] Dr. Lazaro Sam NEUT # 5.8 103/ul Normal 1.4-6.5 [facility] Comment on above: Performed By: #### C BC #### [facility] [address] [place] [address] Dr. Lazaro Sam Neutrophils/100 WBC (Bld) 72.2 % Normal 43.0-75.0 [facility] Comment on above: Performed By: #### C BC #### [facility] [address] [place] [address] Dr. Lazaro Sam Platelet mean volume (Bld) [Entitic vol] 9.1 fL Critically low 9.5-13.5 [facility] Comment on above: Performed By: #### C BC #### [facility] [address] [place] [address] Dr. Lazaro Sam PLT 162 103/ul Normal 150-450 [facility] Comment on above: Performed By: #### C BC #### [facility] [address] [place] [address] Dr. Lazaro Sam RBC 5.82 106/ul Normal 4.70-6.10 [facility] Comment on above: Performed By: #### C BC #### [facility] [address] [place] [address] Dr. Lazaro Sam WBC 8.1 103/ul Normal 4.0-11.0 [facility] Comment on above: Performed By: #### C BC #### [facility] [address] [place] [address] Dr. Lazaro Sam PROF 14(COMP METB)on 022 Albumin [Mass/Vol] 3.7 g/dL Normal 3.4-5.0 [facility] Comment on above: Performed By: #### C MP, TSH #### [facility] [address] [address] [address] Lazaro Sam Albumin/Globulin [Mass ratio] 0.9 {ratio} Normal [facility] Comment on above: Performed By: #### C MP, TSH #### [facility] [address] [address] [address] Lazaro Sam ALP [Catalytic activity/Vol] 72 U/L Normal 46-116 [facility] Comment on above: Performed By: #### C MP, TSH #### [facility] [address] [address] [address] Lazaro Sam ALT [Catalytic activity/Vol] 42 U/L Normal 16-63 [facility] Comment on above: Performed By: #### C MP, TSH #### [facility] [address] [place] [address] Dr. Lazaro Sam Anion gap [Moles/Vol] 13.4 mmol/L Normal [facility] Comment on above: Performed By: #### C MP, TSH #### [facility] [address] [address] [address] Lazaro Sam AST [Catalytic activity/Vol] 22 U/L Normal 15-37 [facility] Comment on above: Performed By: #### C MP, TSH #### [facility] [address] [address] [address] Lazaro Sam Bilirubin [Mass/Vol] 0.6 mg/dL Normal 0.2-1.0 [facility] Comment on above: Performed By: #### C MP, TSH #### [facility] [address] [address] [address] Lazaro Sam Calcium [Mass/Vol] 8.8 mg/dL Normal 8.5-10.1 [facility] Comment on above: Performed By: #### C MP, TSH #### [facility] [address] [address] [address] Lazaro Sam Chloride [Moles/Vol] 104 mmol/L Normal 98-107 [facility] Comment on above: Performed By: #### C MP, TSH #### [facility] [address] [address] [address] Lazaro Sam CO2 [Moles/Vol] 26.5 mmol/L Normal 21.0-32.0 [facility] Comment on above: Performed By: #### C MP, TSH #### [facility] [address] [address] [address] Lazaro Sam Creatinine [Mass/Vol] 1.30 mg/dL Normal 0.70-1.30 [facility] Comment on above: Performed By: #### C MP, TSH #### [facility] [address] [address] [address] Lazaro Sam EGFR-AF STATELESS >60 Normal >=60 [facility] Comment on above: Performed By: #### C MP, TSH #### [facility] [address] [address] [address] Lazaro Sam EGFR-NON AF STATELESS 54 mL/min/1.73m2 Critically low >=60 [facility] Comment on above: Performed By: #### C MP, TSH #### [facility] [address] [address] [address] Lazaro Sam Globulin (S) [Mass/Vol] 3.9 g/dL Normal [facility] Comment on above: Performed By: #### C MP, TSH #### [facility] [address] [address] [address] Lazaro Sam Glucose [Mass/Vol] 117 mg/dL Critically high 74-106 [facility] Comment on above: Performed By: #### C MP, TSH #### [facility] [address] [address] [address] Lazaro Sam Potassium [Moles/Vol] 3.9 mmol/L Normal 3.5-5.1 [facility] Comment on above: Performed By: #### C MP, TSH #### [facility] [address] [address] [address] Lazaro Sam Protein [Mass/Vol] 7.6 g/dL Normal 6.4-8.2 [facility] Comment on above: Performed By: #### C MP, TSH #### [facility] [address] [place] [address] Dr. Lazaro Sam Sodium [Moles/Vol] 140 mmol/L Normal 136-145 [facility] Comment on above: Performed By: #### C MP, TSH #### [facility] [address] [place] [address] Dr. Lazaro Sam Urea nitrogen [Mass/Vol] 23.0 mg/dL Critically high 7.0-18.0 [facility] Comment on above: Performed By: #### C MP, TSH #### [facility] [address] [place] [address] Dr. Lazaro Sam Urea nitrogen/Creatinin e [Mass ratio] 17.7 mg/mg Normal [facility] Comment on above: Performed By: #### C MP, TSH #### [facility] [address] [place] [address] Dr. Lazaro Sam T4on 09-08-2021 T4 [Mass/Vol] 7.70 ug/dL Normal 4.50-12.10 [facility] Comment on above: Performed By: #### T 4 #### [facility] [address] [place] [address] Dr. Lazaro Sam TSHon 09-08-2021 TSH 1.079 uIU/mL Normal 0.358-3.740 [facility] Comment on above: Performed By: #### C MP, TSH #### [facility] [address] [place] [address] Dr. Lazaro Sam TSH RANGE SEE BELOW Normal [facility] Comment on above: Result Comment: <0.3 4 UIU/ml HYPERTHYROID 0.34-5.60 UIU/ml EUTHYROID >5.60 UIU/ml HYPOTHYROID Performed By: #### C MP, TSH #### [facility] [address] [place] [address] Dr. Lazaro Sam TESTOSTERONE, FREE,DIRECT, T OTALon 09-03-2021 Free Testosterone(Direc t) 9.4 pg/mL Normal 6.6-18.1 [facility] Comment on above: Result Comment: Perf ormed at: BN Performed By: #### T ESTFRD #### [facility] [address] [place], [place] [address] Dr. Lazaro Sam Testosterone [Mass/Vol] 328 ng/dL Normal 264-916 [facility] Comment on above: Result Comment: Adul t male reference interval is based on a population of healthy nonobese males (BMI <30) between 19 and 39 years old. Abel, et.al. JCEM 2017,102;1394-2065. PMID: [id number]. Performed at: CB Performed By: #### T ESTFRD #### [facility] [address] [place], [place] [address] Dr. Lazaro Sam CNOVSPon 06-19-2018 CNOVSP Visit (SP) Office (HEMACL) -------- LAMONT LOWERY ([id number]) 1945 M Date Time Provider Department 06/19/18 [...] week. - CBC + DIFF (FOR REMOTE [facility] USE) Narciso Marinelli MD Referring Provider: RUPERTO BLAS [[id number]] Allergies As of Date: 06/19/2018 (No Known Allergies) Date Reviewed: 06/19/2018 Reviewed by: Melvi Valle - Fully Assessed Reason for Visit: polycythemia [Other] Cmt: follow up Primary Visit Diagnosis:Erythrocytosis [D75.1] Order(s):CBC + DIFF (FOR REMOTE [facility] USE) [SQRCBCDF] Order #: [id number] STANDING Disposition: Return in about 1 year [...] by NARCISO MARINELLI MD on 06/19/18 Normal [facility] PROGRESSon 06-19-2018 Protein mass conc HNO ID: [id number] Author: Narciso Marinelli Service: ? Author Type: [...] week. - CBC + DIFF (FOR REMOTE [facility] USE) Narciso Marinelli MD Normal [facility] Remote CBCDIF (for [facility] use o nly)on 06-19-2018 Abs Baso <0.03 Normal 0.00-0.10 [facility] Abs [place] 1.02 k/uL High 0.00-0.86 [facility] Abs Neut 5.04 k/uL Normal 1.45-7.50 [facility] Basophils/100 WBC (Bld) 0.2 % Normal [facility] Eosinophils #/vol (Bld) 0.40 10*3/uL Normal 0.00-0.45 [facility] Eosinophils/100 WBC (Bld) 4.5 % Normal [facility] Erythrocyte distribution width Ratio (RBC) 13.3 % Normal 11.5-15.0 [facility] Hematocrit Volume Fraction (Bld) 48.8 % Normal 39.0-51.0 [facility] Hemoglobin mass conc (Bld) 16.8 g/dL Normal 13.0-17.0 [facility] Lymphocytes #/vol (Bld) 2.43 10*3/uL Normal 1.00-4.00 [facility] Lymphocytes/100 WBC (Bld) 27.3 % Normal [facility] MCH Entitic mass (RBC) 30.5 pG Normal 26.0-34.0 [facility] MCHC mass conc (RBC) 34.4 g/dL Normal 30.5-36.0 [facility] MCV Entitic volume (RBC) 88.6 fL Normal 80.0-100.0 [facility] Monocytes/100 WBC (Bld) 11.4 % Normal [facility] Neutrophils/100 WBC (Bld) 56.6 % Normal [facility] Platelet mean volume Entitic volume (Bld) 9.6 fL Normal 9.0-12.7 [facility] Platelets #/vol (Bld) 152 10*3/uL Normal 150-400 [facility] RBC #/vol (Bld) 5.51 10*6/uL Normal 4.20-6.00 [facility] WBC #/vol (Bld) 8.91 10*3/uL Normal 3.70-11.00 [facility] BCR-ABL Qualitativeon 2018 BCR-ABL Qualitative (NOTE) Normal [facility] Comment on above: Result Comment: Shannan vann refer to [facility] Surgical Pathology report, Performed By: #### C ALR, BCRQL #### [facility] [email or web address] [address] [address] CALR Exon 9 Mutationon 05-29 CALR Result/Interp Duplicate request Normal [facility] Comment on above: Result Comment: Acco unt Credited SEE MPNP. [id number] Performed By: #### C ALR, BCRQL #### [facility] [email or web address] [address] [address] CALR Reviewed by Duplicate request Normal [facility] Comment on above: Result Comment: Acco unt Credited SEE MPNP. [id number] Performed By: #### C ALR, BCRQL #### [facility] [email or web address] [address] [address] CALR Specimen Type Duplicate request Normal [facility] Comment on above: Result Comment: Acco unt Credited SEE MPNP. [id number] Performed By: #### C ALR, BCRQL #### [facility] [address] [place], [place] [address] CNCOon 05-29-2018 CNCO Letter Text Dear Lamont Lowery: How to activate your [facility] [employer] Account 1. Visit the [employer] Signup page at [email or web address] 2. Identify yourself using your one-time use activation code: [email or web address] 3. Follow the on-screen prompts to choose [...] information on the Identify Yourself Form at [email or web address] , click Next. Create your login and password, choose a [employer] ID and password that will be easy for you to use, but impossible for anyone else to guess. Pick a security question that will assist you in the event you forget your password the next time you log-on. If you have difficulty activating your account, please call our [employer] helpline at [phone] or toll free at . We hope you enjoy using [employer]! Kindest Regards, [facility] [employer] Team Normal [facility] CNOVSPon 05-29-2018 OVS Visit (SP) Office (HEMACL) -------- LAMONT LOWERY ([id number]) 1945 M Date Time Provider Department 05/29/18 [...] viscosity is hematocrit with the risk of VT, CVA, Budd Chiari, etc all increased proportionately [...] Narciso Marinelli MD Referring Provider: MURALI SCHRADER [[id number]] Allergies As of Date: 05/29/2018 (No Known Allergies) Date Reviewed: 05/29/2018 Reviewed by: Melvi Valle - Fully Assessed Reason for Visit: high HGB [Other] Cmt: new patient consultation ref. Dr. Schrader Primary Visit Diagnosis:Polycythemia [D75.1] Other Visit Diagnosis:Erythrocytosis [D75.1] Order(s):JAK2 V617F MUTATION BLOOD [SQJAK2] Order #: [id number] FUTURE BCR-ABL QUALITATIVE MULTIPLEX RT-PCR [SQBCRQL] Order #: [id number] FUTURE CALR EXON 9 MUTATION ANALYSIS BLOOD [SQCALR] Order #: [id number] FUTURE MPL MUTATION ANALYSIS BLOOD [SQMPL] Order #: [id number] FUTURE ABS GRAN CT + CBC (FOR REMOTE [facility] USE) [SQRAGCBC] Order #: [id number] FUTURE ERYTHROPOIETIN/EPO [SQEPO] Order #: [id number] FUTURE HEPATIC FUNCTION PNL [SQHFP] Order #: [id number] FUTURE TESTOSTERONE TOTAL [SQTESTO] Order #: [id number] FUTURE Disposition: Return in about 3 weeks [...] by NARCISO MARINELLI MD on 05/29/18 Normal [facility] EPOon 05-29-2018 EPO 8.8 mIU/mL Normal 2.6-18.5 [facility] Comment on above: Result Comment: Test analyzed by the Xiang DxI method. Performed By: #### J AK2, EPO, HFP #### [facility] [address] [place], [place] [address] Hepatic Functn Panelon 05-29 Albumin mass conc 4.6 g/dL Normal 3.9-4.9 [facility] Comment on above: Performed By: #### Lucille AK2, EPO, HFP #### [facility] [address] [place], [place] [address] ALP enzyme act/vol 60 U/L Normal 38-113 [facility] Comment on above: Performed By: #### Lucille AK2, EPO, HFP #### [facility] [address] [address] ALT enzyme act/vol 36 U/L Normal 10-54 [facility] Comment on above: Performed By: #### Lucille AK2, EPO, HFP #### [address] [address] AST enzyme act/vol 29 U/L Normal 14-40 [facility] Comment on above: Performed By: #### Lucille AK2, EPO, HFP #### [facility] [address] [address] Bilirubin mass conc 0.5 mg/dL Normal 0.2-1.3 [facility] Comment on above: Performed By: #### Lucille AK2, EPO, HFP #### [facility] [address] [place], [place] [address] Bilirubin,Conjugat ed <0.2 Normal <0.2 [facility] Comment on above: Performed By: #### Lucille AK2, EPO, HFP #### [facility] [email or web address] [address] [address] Protein mass conc 7.6 g/dL Normal 6.3-8.0 [facility] Comment on above: Performed By: #### Lucille AK2, EPO, HFP #### [facility] [address] [id number] JAK2 V617F Mutationon 2018 JAK2 V617F Interp Duplicate request Normal [facility] Comment on above: Result Comment: Acco unt Credited SEE MPNP. [id number] Performed By: #### J AK2, EPO, HFP #### [facility] [address] [phone] JAK2 V617F Spec Type Duplicate request Normal [facility] Comment on above: Result Comment: Acco unt Credited SEE MPNP. DM2018 Performed By: #### J AK2, EPO, HFP #### [facility] [address] [address] Molecular Path Rev Duplicate request Normal [facility] Comment on above: Result Comment: Acco unt Credited SEE MPNP. DM2018 Performed By: #### J AK2, EPO, HFP #### [address] [address] MPL Mutationon 05-29-2018 MPL Mutation Interp Duplicate request Normal [facility] Comment on above: Result Comment: Acco unt Credited SEE MPNP. DM2018 Performed By: #### M PL #### [facility] [address] [address] Myeloprolif Neopl Pnl Bloodo n 05-29-2018 Myelo Neopl Pnl Bld (NOTE) Normal [facility] Comment on above: Result Comment: Shannan se refer to [facility] Surgical Pathology report, . Performed By: #### M PNP ####[facility] [phone] PROGRESSon 05-29-2018 Protein mass conc HNO ID: [id number] Author: Narciso Marinelli Service: (none) Author Type: [...] viscosity is hematocrit with the risk of VT, CVA, Budd Chiari, etc all increased proportionately [...] - TESTOSTERONE TOTAL Narciso Marinelli MD Normal [facility] Remote Abs Gran + CBC (for [facility] use only)on 05-29-2018 Absol Gran Count 3.85 k/uL Normal 1.45-7.50 [facility] Erythrocyte distribution width Ratio (RBC) 13.6 % Normal 11.5-15.0 [facility] Hematocrit Volume Fraction (Bld) 49.6 % Normal 39.0-51.0 [facility] Hemoglobin mass conc (Bld) 17.1 g/dL High 13.0-17.0 [facility] MCH Entitic mass (RBC) 30.5 pG Normal 26.0-34.0 [facility] MCHC mass conc (RBC) 34.5 g/dL Normal 30.5-36.0 [facility] MCV Entitic volume (RBC) 88.6 fL Normal 80.0-100.0 [facility] Platelet mean volume Entitic volume (Bld) 9.9 fL Normal 9.0-12.7 [facility] Platelets #/vol (Bld) 146 10*3/uL Low 150-400 [facility] RBC #/vol (Bld) 5.60 10*6/uL Normal 4.20-6.00 [facility] WBC #/vol (Bld) 6.86 10*3/uL Normal 3.70-11.00 [facility] SURGICAL PATHOLOGYon 019 SURGICAL PATHOLOGY PROCEDURE REPORT Specimen originated from [facility] Specimen #: [id number] Submitting Physician: NARCISO MARINELLI MD SPECIMEN SUBMITTED [...] this sample, and cDNA prepared by reverse bridge/structure inspection team leader. Multiplex RT-PCR studies were performed using fluorescently [...] developed and its performance characteristics determined by [facility]'s Murali Tricia [facility] [place] ([facility]). It has not been cleared or approved by the FDA. [facility] is regulated under CLIA as qualified to perform high-complexity testing. This test is used for clinical purposes. It should not be regarded as investigational or for research. As Reviewed by: Narciso Luong M.D., Ph. D. JRSoo/brynn 06/10/2018 Procedure Pathologist: Narciso Luong M.D. Electronic [...] sequencing was performed on the Illumina instrument ([place], [place]). A customized bioinformatic pipeline was used to align the sequencing reads to the reference human genome (GRCh37/hg19). Benign common polymorphisms are not reported. Limitations: Sequence changes outside the analyzed regions, including intronic, noncoding, and splice-site variants, will not be identified by this test. The lower limit of detection of this assay is approximately 1% allele proportion for the JAK2 [id number] single nucleotide variant and approximately 5% allele [...] developed and its performance characteristics determined by [facility]'s Murali JPayal [facility] [place] ([facility]). It has not been cleared or approved by the FDA. [facility] is regulated under CLIA as qualified to perform high-complexity testing. This test is used for clinical purposes. It should not be regarded as investigational or for research. As Reviewed by: Quin Hill M.D. Ph.D. HENRIK/ap [id number] References: Temi DA, Syd A, Joshua R, Payal J, Borvirgil MJ, Abelardo Rashid MM, et al. The 2016 revision [...] Receipt: 05/30/2018 Submitted: NARCISO MARINELLI MD Location: [facility] Diagnostic interpretation performed at [facility], [address] [place] [address]. Normal [facility] Testosteroneon 05-29-2018 Testosterone mass conc 249 ng/dL Normal 193-824 [facility] Comment on above: Result Comment: A te stosterone level in the 193-320 ng/dL range with associated clinical symptoms is considered low and may indicate hypogonadism (from NEJM 2010 363:123-135). Results >320 ng/dL are considered normal. Performed By: #### T ESTO ####[facility] [email or web address] [place], [place] [phone] Vital Signs Date Time Vital Sign Value Performing Clinician Facility 05-09-2024 09: Body height 172.72 cm [facility] 05-09-2024 09: Body mass index (BMI) [Ratio] 30.6 kg/m2 [facility] 05-09-2024 09:050 Body temperature 98.4 [degF] [facility] 05-09-2024 09:28-0500 Body weight 91.34 kg [facility] 05-09-2024 09:28-0500 Diastolic blood pressure 86 mm[Hg] [facility] 05-09-2024 09:28-0500 Heart rate 100 /min [facility] 05-09-2024 09:28-0500 Respiratory rate 18 /min [facility] 05-09-2024 09:28-0500 SaO2% (BldA) [Mass fraction] 94 % [facility] 05-09-2024 09:28-0500 Systolic blood pressure 141 mm[Hg] [facility] 01-09-2024 13:47-0400 Body height 172.7 cm Josh Hearn [employer] Work Phone: [facility] 01-09-2024 13:47-0400 Body mass index (BMI) [Ratio] 31.17 kg/m2 Josh Hearn [employer] Work Phone: [facility] 01-09-2024 13:47-0400 Body temperature 96.21 [degF] Josh Hearn [employer] Work Phone: [facility] 01-09-2024 13:47-0400 Body weight 92.99 kg Josh Hearn [employer] Work Phone: [facility] 01-09-2024 13:47-0400 Diastolic blood pressure 76 mm[Hg] Josh Hearn [employer] Work Phone: [facility] 01-09-2024 13:47-0400 Heart rate 83 /min Josh Hearn [employer] Work Phone: [facility] 01-09-2024 13:47-0400 Respiratory rate 16 /min Josh Hearn [employer] Work Phone: [facility] 01-09-2024 13:47-0400 SaO2% (BldA) [Mass fraction] 98 % Josh Hearn [employer] Work Phone: [address] [id number] 13:47-0400 Systolic blood pressure 138 mm[Hg] Josh Hearn [employer] Work Phone: [facility] 12-28-2023 11:16-0400 Body height 172.72 cm [facility] 12-28-2023 11:16-0400 Body mass index (BMI) [Ratio] 30.1 kg/m2 [facility] 12-28-2023 11:16-0400 Body temperature 98 [degF] [facility] 12-28-2023 11:16-0400 Body weight 89.92 kg [facility] 12-28-2023 11:16-0400 Diastolic blood pressure 92 mm[Hg] [facility] 12-28-2023 11:16-0400 Heart rate 102 /min [facility] 12-28-2023 11:16-0400 Respiratory rate 18 /min [facility] 12-28-2023 11:16-0400 SaO2% (BldA) [Mass fraction] 95 % [facility] 12-28-2023 11:16-0400 Systolic blood pressure 153 mm[Hg] [facility] 12-12-2023 14:42-0400 Body height 172.7 cm Josh Hearn [employer] Work Phone: [facility] 12-12-2023 14:42-0400 Body mass index (BMI) [Ratio] 30.11 kg/m2 Josh Hearn [employer] Work Phone: [facility] 12-12-2023 14:42-0400 Body temperature 97.59 [degF] Josh Hearn [employer] Work Phone: [facility] 12-12-2023 14:42-0400 Body weight 89.81 kg Josh Hearn [employer] Work Phone: [facility] 12-12-2023 14:42-0400 Diastolic blood pressure 90 mm[Hg] Josh Hearn [employer] Work Phone: [facility] 12-12-2023 14:42-0400 Heart rate 100 /min Josh Ontiverosk [employer] Work Phone: [facility] Comment on above: 94% O2 12-12-2023 14:42-0400 Systolic blood pressure 160 mm[Hg] Josh Escamillatrick [employer] Work Phone: [facility] 11-01-2023 14:44-0400 Body height 172.72 cm [facility] 11-01-2023 14:44-0400 Body mass index (BMI) [Ratio] 30.4 kg/m2 [facility] 11-01-2023 14:44-0400 Body temperature 99.1 [degF] [facility] 11-01-2023 14:44-0400 Body weight 90.94 kg [facility] 11-01-2023 14:44-0400 Diastolic blood pressure 98 mm[Hg] [facility] 11-01-2023 14:44-0400 Heart rate 80 /min [facility] 11-01-2023 14:44-0400 Respiratory rate 18 /min [facility] 11-01-2023 14:44-0400 SaO2% (BldA) [Mass fraction] 95 % [facility] 11-01-2023 14:44-0400 Systolic blood pressure 169 mm[Hg] [facility] 10-15-2023 12:58-0400 Blood Pressure Location EWA VIERA [facility] 10-15-2023 12:58-0400 Diastolic blood pressure 90 mm[Hg] EWA CARRRY [facility] 10-15-2023 12:58-0400 Heart rate 81 /min EWA CARRRY [facility] 10-15-2023 12:58-0400 Respiratory rate 16 /min EWA VIERA [facility] 10-15-2023 12:58-0400 Systolic blood pressure 162 mm[Hg] EWA VIERA [facility] 03-19-2023 12:05-0500 Body height 172.72 cm Myrna Isbell Other [facility] Other 03-19-2023 12:05-0500 Body mass index (BMI) [Ratio] 30.62 kg/m2 Myrna Isbell Other [facility] 03-19-2023 12:05-0500 Body temperature 98.9 [degF] Myrna Isbell Other [facility] 03-19-2023 12:05-0500 Body weight 91.36 kg Myrna Isbell Other [facility] 03-19-2023 12:05-0500 Diastolic blood pressure 104 mm[Hg] Myrna Isbell Other [facility] 03-19-2023 12:05-0500 Respiratory rate 18 /min Myrna Isbell Other [facility] 03-19-2023 12:05-0500 SaO2% (BldA) [Mass fraction] 96 % Myrna Isbell Other [facility] 03-19-2023 12:05-0500 Systolic blood pressure 178 mm[Hg] Myrna Isbell Other [facility] 03-14-2023 13:10-0500 Body height 172.72 cm Magnolia Costa Other [facility] 03-14-2023 13:10-0500 Body mass index (BMI) [Ratio] 30.41 kg/m2 Magnolia Igor Other [facility] 03-14-2023 13:10-0500 Body temperature 100.1 [degF] Magnolia Igor Other [facility] 03-14-2023 13:10-0500 Body weight 90.72 kg Magnolia Igor Other [facility] 03-14-2023 13:10-0500 Diastolic blood pressure 87 mm[Hg] Magnolia Igor Other [facility] 03-14-2023 13:10-0500 Respiratory rate 18 /min Magnolia Igor Other [facility] 03-14-2023 13:10-0500 SaO2% (BldA) [Mass fraction] 96 % Magnolia Igor Other [facility] 03-14-2023 13:10-0500 Systolic blood pressure 190 mm[Hg] Magnolia Igor Other [facility] Other 10-17-2022 13:35-0400 Blood Pressure Location EWA VIERA [facility] 10-17-2022 13:35-0400 Diastolic blood pressure 112 mm[Hg] EWA MAXIMILIANO [facility] 10-17-2022 13:35-0400 Heart rate 81 /min EWA MAXIMILIANO [facility] 10-17-2022 13:35-0400 Systolic blood pressure 172 mm[Hg] EWA VIERA [facility] 04-16-2022 14:37-0500 Blood Pressure Location Murali Exose[facility] Secretary 10-16-2021 14:30-0400 Blood Pressure Location Murali [facility] Gaetano 10-16-2021 14:30-0400 Diastolic blood pressure 85 mm[Hg] Murali Exosect [facility] 10-16-2021 14:30-0400 Heart rate 67 /min Murali Exosect [facility] 10-16-2021 14:30-0400 Respiratory rate 16 /min Murali Exosect [facility] 10-16-2021 14:30-0400 Systolic blood pressure 170 mm[Hg] Murali Exosect [facility] Encounters Encounter Date Encounter Type Care Provider Facility Start: 10-12-2024 ambulatory EWA VIERA Facili ty:[facility] [place] Start: 05-14-2024 ambulatory DO FREDERICK Sheppard lity:[facility] Start: 05-09-2024 End: 05-09-2024 ambulatory [facility] Work Phone: Start: 05-09-2024 End: 05-09-2024 Patient encounter procedure [facility] Work Phone: Start: 03-09-2024 End: 03-09-2024 Bamboo flowsheet Brii B Apling BODY BUMPER Work Phone: [facility] Start: 03-09-2024 End: 03-09-2024 Bamboo flowsheet Brii B Apling BODY BUMPER Work Phone: [facility] Start: 03-09-2024 End: 03-09-2024 Office outpatient visit 15 minutes Brii B Apling BODY BUMPER Work Phone: [facility] Comment on above: Left shoulder pain, unspecified chronicity (Primary Dx); Glenohumeral arthritis, left; Arthritis of left acromioclavicular joint; Impingement of left shoulder Start: 03-09-2024 End: 03-09-2024 ambulatory BRII B APLING Not Available Start: 03-05-2024 End: 03-05-2024 Refill Josh Hearn BODY BUMPER Work Phone: [facility] Comment on above: Seasonal allergies Start: 02-17-2024 End: 02-17-2024 Bamboo flowsheet Brii B Apling BODY BUMPER Work Phone: [facility] Start: 02-17-2024 End: 02-17-2024 Bamboo flowsheet Brii B Apling BODY BUMPER Work Phone: [facility] Start: 02-17-2024 End: 02-17-2024 Office outpatient new 45 minutes Brii B Apling BODY BUMPER Work Phone: [facility] Comment on above: Left shoulder pain, unspecified chronicity (Primary Dx); Glenohumeral arthritis, left; Arthritis of left acromioclavicular joint; Impingement of left shoulder Start: 02-17-2024 End: 02-17-2024 ambulatory BRII B APLING Not Available Start: 01-16-2024 End: 01-16-2024 ambulatory DO FREDERICK [facility] Facility:[facility] Start: 01-09-2024 End: 01-09-2024 Bamboo flowscharan Hearn BODY BUMPER Work Phone: [facility] Start: 01-09-2024 End: 01-09-2024 Bamboo flowsheet Josh Hearn BODY BUMPER Work Phone: [facility] Start: 01-09-2024 End: 01-09-2024 Office outpatient visit 15 minutes Josh Hearn BODY BUMPER Work Phone: [facility] Comment on above: Gordon's palsy (Primar y Dx) Start: 01-09-2024 End: 01-09-2024 ambulatory JOSH HEARN Not Available Start: 12-31-2023 End: 01-03-2024 Emergency department patient visit [facility] Start: 12-28-2023 End: 12-28-2023 ambulatory [facility] Work Phone: Start: 12-28-2023 End: 12-28-2023 Patient encounter procedure [facility] Work Phone: Start: 12-21-2023 End: 12-21-2023 Orders Only Josh Hearn BODY BUMPER Work Phone: [facility] Comment on above: Encounter for wellne ss examination in adult (Primary Dx) Start: 12-21-2023 End: 12-21-2023 Patient encounter status Josh Hearn BODY BUMPER Work Phone: [facility] Work Phone: Start: 12-12-2023 End: 12-12-2023 Initial preventive medicine new patient 67yrs&> Josh Hearn BODY BUMPER Work Phone: [facility] Comment on above: Primary hypertension (CMS/HCC) (Primary Dx); Encounter for wellness examination in adult; Seasonal allergies; Seasonal allergic rhinitis, unspecified trigger; Screening for hyperlipidemia; Screening for diabetes mellitus Start: 12-12-2023 End: 12-12-2023 ambulatory JOSH HEARN Not Available Start: 12-12-2023 End: 12-12-2023 Bamboo flowsheet Josh Campbellpatrick BODY BUMPER Work Phone: [facility] Start: 12-12-2023 End: 12-12-2023 Bamboo flowsheet Josh Escamillatrick BODY BUMPER Work Phone: [facility] Start: 12-12-2023 End: 12-12-2023 Patient encounter status Josh Campbellpatrick BODY BUMPER Work Phone: [facility] Start: 11-01-2023 End: 11-01-2023 ambulatory [facility] Work Phone: Start: 11-01-2023 End: 11-01-2023 Patient encounter procedure [facility] Work Phone: Start: 10-15-2023 End: 10-15-2023 ambulatory EWA VIERA Facility:[facility] Start: 10-15-2023 End: 10-15-2023 Patient encounter procedure EWA VIERA [facility] Start: 03-19-2023 End: 03-19-2023 ambulatory Myrna Isbell Other Rain Other Start: 03-19-2023 Office outpatient vi sit 15 minutes Myrna Isbell [facility] Start: 03-15-2023 End: 03-15-2023 ambulatory Magnolia Igor Other Rain Other Start: 03-15-2023 Telephone encounter Magnolia Igor [facility] Start: 03-14-2023 End: 03-14-2023 ambulatory Magnolia Igor Other Rain Other Start: 03-14-2023 Office outpatient vi sit 15 minutes Magnolia Igor [facility] Start: 10-17-2022 End: 10-17-2022 Patient encounter procedure EWA VIERA [facility] [place] Start: 05-24-2022 End: 05-25-[address] FREDERICK GONZALEZ Facility:[facility] Start: 04-16-2022 End: 04-16-2022 Patient encounter procedure Murali SCHRADER [facility] Secretary Start: 01-26-2022 End: 01-27-[address] MURALI SCHRADER Facility:[facility] Start: 10-16-2021 End: 10-16-2021 Patient encounter procedure Murali SCHRADER [facility] Start: 09-08-2021 End: 09-09-[address] FREDERICK GONZALEZ Facility:[facility] Start: 09-01-2021 End: 09-02-[address] FREDERICK GONZALEZ Facility:[facility] Start: 06-19-2018 End: 06-20-2018 Patient encounter procedure NARCISO MARINELLI [facility] Start: 05-29-2018 End: 05-30-2018 Patient encounter procedure NARCISO MARINELLI [facility] Procedures Date Procedure Procedure Detail Performing Clinician Start: 03-09-2024 Arthrocentesis aspir &/inj major jt/bursa w/o us Brii Oconnor BODY BUMPER Work Phone: Start: 02-17-2024 Arthrocentesis aspir &/inj major jt/bursa w/o us Brii Oconnor BODY BUMPER Work Phone: Start: 02-17-2024 Radex shoulder compl ete minimum 2 views Brii Oconnor BODY BUMPER Work Phone: Start: 09-01-[address] ROBIN GONZALEZ Comment on above: Performed By: #### P SAD #### [facility] [address] [place] [address] Dr. Lazaro Sam Appendectomy Murali SCHRADER Decompression of med trev nerve Murali SCHRADER Plan of Treatment Date Care Activity Detail Author Start: 01-08-2025 Pneumococcal Vaccine: 65+ Years (1 of 1 - PCV) Pneumococcal Vaccine: 65+ Years (1 of 1 - PCV) [facility] Comment on above: Postponed from 09/04/2012 (Patient Refus ed) Start: 12-11-2024 Medicare Annual Wellness (AWV) Medicare Annual Wellness (AWV) [facility] Start: 03-12-2024 End: 03-12-2024 Patient encounter procedure 03/12/2024 3:30 PM EST [facility] [address] [place] [phone] Josh Hearn NP [address] [place] [address] [facility] Start: 03-09-2024 End: 03-09-2024 Patient encounter procedure [facility] Comment on above: Left shoulder pain, unspecified chronici ty (Primary Dx); Glenohumeral arthritis, left; Arthritis of left acromioclavicular joint; Impingement of left shoulder Start: 03-05-2024 Influenza vaccination Influenza Vaccine (#1) [facility] Comment on above: Postponed from 12/01/2023 (Patient Refus ed) Start: 01-09-2024 End: 01-09-2024 Patient encounter procedure 01/09/2024 2:00 PM EDT Office Visit [facility] [address] [place] [phone] Josh Hearn NP [address] [place] [phone] Arrived [facility] Comment on above: Arrived Start: 12-21-2023 End: 12-20-2024 25-hydroxyvitamin D3 [Mass/volume] in Serum or Plasma Vitamin D 25 hydroxy Lab Routine Encounter for wellness examination in adult Expected: 12/21/2023 (Approximate), Expires: 12/20/2024 [facility] Work Phone: Comment on above: Expected: 12/21/2023 (Approximate), Expi res: 12/20/2024 Start: 12-13-2023 End: 12-12-2024 CBC W Auto Differential panel - Blood CBC and differential Lab Routine Primary hypertension (CMS/HCC) Expected: 12/13/2023 (Approximate), Expires: 12/12/2024 [facility] Comment on above: Expected: 12/13/2023 (Approximate), Expi res: 12/12/2024 Start: 12-13-2023 End: 12-12-2024 Comprehensive metabolic 2000 panel - Serum or Plasma Comprehensive metabolic panel Lab Routine Primary hypertension (CMS/HCC) Screening for diabetes mellitus Expected: 12/13/2023 (Approximate), Expires: 12/12/2024 [facility] Comment on above: Expected: 12/13/2023 (Approximate), Expi res: 12/12/2024 Start: 12-13-2023 End: 12-12-2024 Hemoglobin A1c/Hemoglobin.total in Blood Hemoglobin A1c Lab Routine Screening for diabetes mellitus Expected: 12/13/2023 (Approximate), Expires: 12/12/2024 [facility] Comment on above: Expected: 12/13/2023 (Approximate), Expi res: 12/12/2024 Start: 12-13-2023 End: 12-12-2024 Lipid 1996 panel - Serum or Plasma Lipid panel Lab Routine Primary hypertension (CMS/HCC) Screening for hyperlipidemia Expected: 12/13/2023 (Approximate), Expires: 12/12/2024 [facility] Comment on above: Expected: 12/13/2023 (Approximate), Expi res: 12/12/2024 Start: 12-13-2023 End: 12-12-2024 TSH W/REFLEX TO FT4 TSH W/REFLEX TO FT4 Lab Routine Primary hypertension (CMS/HCC) Expected: 12/13/2023 (Approximate), Expires: 12/12/2024 [facility] Work Phone: Comment on above: Expected: 12/13/2023 (Approximate), Expi res: 12/12/2024 Start: 12-12-2023 End: 12-12-2023 Patient encounter procedure 12/12/2023 3:00 PM EDT Office Visit [facility] [address] [place] [address] Josh Hearn, LINA [address] [place] [address] Arrived [facility] Comment on above: Arrived Start: 12-01-2023 Influenza vaccination Influenza Vaccine (#1) [facility] Start: 09-04-2012 Pneumococcal Vaccine: 65+ Years (1 of 1 - PCV) Pneumococcal Vaccine: 65+ Years (1 of 1 - PCV) [facility] Start: 1945 Medicare Annual Wellness (AWV) Medicare Annual Wellness (AWV) [facility] Immunizations Immunization Date Immunization Notes Care Provider Fa cili 2023 ABRYSVO - Respirator y syncytial virus (RSV), vaccine, bivalent, protein subunit RSV prefusion F, diluent reconstituted, 0.5 mL, PF Josh Hearn BODY BUMPER Work Phone: [facility] 03-16-2021 SARS-CoV-2 (COVID-19 ) mRNA BNT-162l4 [employer] [facility] Comment on above: Result Comment: 2022: [id number] 03-01-2021 SARS-CoV-2 (COVID-19 ) mRNA BNT-162b2 [employer] [facility] 06-29-2020 SARS-CoV-2 (COVID-19 ) mRNA BNT-162b2 vax [employer] [facility] 06-24-2020 SARS-CoV-2 (COVID-19 ) mRNA-1273 vaccine Murali RICE [facility] 06-08-2020 SARS-CoV-2 (COVID-19 ) mRNA BNT-162b2 vax Murali SCHRADER [facility] 06-03-2020 SARS-CoV-2 (COVID-19 ) mRNA-1273 vaccine Murali SCHRADER [facility] 04-10-2018 tetanus toxoid, reduced diphtheria toxoid, and acellular pertussis vaccine, adsorbed Murali SCHRADER [facility] 10-09-2012 pneumococcal vaccine , unspecified formulation Josh Hearn NP Work Phone: [facility] Payers Date Payer Category Payer Private Health Insurance [id number] 2023 Unknown [facility] [id number] 2023-Present [address] [place] [address] [id number] 2019 Unknown [id number] 2018 Medicare [id number] 2012 Medicare [id number] 1959 Medicare [id number] 1959 Unknown [id number] 1947 Unknown [id number] .593 1947 Unknown [id number] .593 1947 Unknown [id number] [id number] .593 1947 Unknown [id number] [id number] .593 1947 Unknown [id number] [id number] .1259 1947 Unknown [id number] [id number] .1259 1947 Unknown [id number] [id number] .1259 1947 Unknown [id number] 2.16.840.1.193753.3.579.2 .1259 1947 Unknown [id number] [id number] .1259 1947 Unknown [id number] [id number] .727 1947 Unknown [id number] [id number] .727 1947 Unknown [id number] [id number] .718 1947 Unknown [id number] [id number] .718 Unknown [id number] Social History Date Type Detail Facility Start: 04-17-2021 End: 05-09-2024 Tobacco smoking status Never smoked tobacco (finding) [facility] Tobacco smoking status Never [facility] Start: 12-12-2023 End: 02-17-2024 Sex Assigned At Male [facility] Start: 1945 Sex Assigned At Male [facility] Start: 12-12-2023 Tobacco use and exposure Smokeless tobacco non-user [facility] Start: 12-12-2023 End: 03-09-2024 Alcoholic beverage intake Lifetime non-drinker (finding) [facility] Start: 12-12-2023 End: 02-17-2024 History of Social function [facility] Start: 1945 Sex assigned at Not on file [facility] Tobacco smoking status NHIS Tobacco smoking consumption unknown [facility] Start: 05-09-2024 Sex Male (finding) [facility] NEGATED: Highlighted rowStart: NINF History of tobacco use Passive smoker [facility] Functional Status Date Assessment Result Facility 10-15-2023 Functional Status N/A [facility] 10-17-2022 Functional Status N/A [facility] 04-16-2022 Functional Status N/A [facility] 10-16-2021 Functional Status N/A [facility] Clinical Notes 10-16-2021 to 03-09-2024 Brii Oconnor NP - 03/09/2024 10:00 AM Andry Oconnor NP - 02/17/2024 11:15 AM Samuel Hearn NP - 01/15/2024 8:40 AM Ayush Hearn NP - 01/09/2024 2:00 PM EDT Note Date & Type Note Facility 03-09-2024 History of Present illness Narrative Associated Order(s): L Inj/Asp: L subacromial bursa Post-Procedure Diagnose(s): Impingement of left shoulder Images from the original note were not included. Subjective Patient ID: Lamont Lowery is a 78 y.o. male. LT Shoulder No recent studies Pt is RT handed 3 weeks s/p subacromial depo medrol injection (02/17/24) with 75% improvement LT shoulder pain x 20+ years. Pain has been worsening the past 2 years. Notes he did P.T. in 2019 for his shoulder, and the therapy made the pain worse. 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 States it bothers him when he sleeps. Has to sleep on sided due to wearing CPAP. States his shoulder is better throughout the day. Pain anterior shoulder, occas radiates into bicep. Will get muscle spasms posteriorly. Taking TYL at HS. Using voltaren, some relief. Has noticed his arm/hand will shake intermittently. Only has N/T with arm bent. Denies swelling. Admits grinding. Limited ROM. Continues going to the gym. TX: XR [facility] 02/17/24, TYL, painburst cream, depo medrol subacromial injection 02/17/24 Objective Left Shoulder Exam Range of Motion Active abduction: 160 Muscle Strength Abduction: 4/5 Tests Watters test: positive Drop arm: negative Shoulder Musculoskeletal Exam Inspection Left Ecchymosis: none Atrophy: none Palpation Left Crepitus: moderate Tenderness: present Anterior shoulder: mild Range of Motion Left Active ROM: pain. Active forward elevation: 160. Shoulder active abduction: 160. Active external rotation at side: 10. Internal rotation: side. Strength Left Abduction: 4/5. Special Tests Left Rotator Cuff Signs Watters test: positive Drop arm test: negative L Inj/Asp: L subacromial bursa on 03/09/2024 10:25 AM Indications: pain Details: 20 G needle, posterior approach Medications: 40 mg methylPREDNISolone acetate 40 MG/ML Utilizing aseptic technique with universal precautions . Pt given injection Left Shoulder SA space Procedure, treatment alternatives, risks and benefits explained, specific risks discussed. Consent was given by the patient. Patient was prepped and draped in the usual sterile fashion. Assessment/Plan Encounter Diagnoses: ICD-10-CM 1. Left shoulder pain, unspecified chronicity M25.512 2. Glenohumeral arthritis, left M19.012 3. Arthritis of left acromioclavicular joint M19.012 4. Impingement of left shoulder M25.812 Activities as tolerated, Discussion of options, pt notes he would like an injection, side effects of bleeding and infection discussed, would like to proceed with the injection, using aspectic technique 40 mg of depo medrol was injected into the left shoulder subacromial space, pt tolerated well, bandaid applied, may do activities as tolerated, f/U prn documented in this encounter [facility] 02-17-2024 History of Present illness Narrative Associated Order(s): L Inj/Asp: L subacromial bursa Post-Procedure Diagnose(s): Impingement of left shoulder Images from the original note were not included. Subjective Patient ID: Lamont Lowery is a 78 y.o. male. LT Shoulder No recent studies Pt is RT handed LT shoulder pain x 20+ years. Notes he did P.T. in 2019 for his shoulder, and the therapy made the pain worse. 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 Admits waking at night. Pain has been worsening the past 2 years. Admits muscle spasms posterior shoulder, these come and go. Pain mainly posterior shoulder, and he has a tender spot anterior. Pain occas radiates down his bicep. He also gets off and on neck soreness. Describes pain in the shoulder as sharp and stabbing. Denies pain at rest. Pain at worst 10/10 when he abducts his arm. Admits grinding/cracking. Limited ROM, cannot raise him arm very high. Denies N/T. Occas takes TYL with little relief. He uses a painburst cream with relief. Notes his arm shakes when he drives, when his arm is elevated on the wheel. TX: XR [facility] 02/17/24, TYL, painburst cream, Objective Left Shoulder Exam Range of Motion Active abduction: 140 Muscle Strength Abduction: 4/5 Tests Watters test: positive Drop arm: negative Shoulder Musculoskeletal Exam Inspection Left Ecchymosis: none Atrophy: none Palpation Left Crepitus: moderate Tenderness: present Anterior shoulder: moderate Range of Motion Left Active ROM: pain. Active forward elevation: 140. Shoulder active abduction: 140. Active external rotation at side: 10. Internal rotation: side. Strength Left Abduction: 4/5. Special Tests Left Rotator Cuff Signs Watters test: positive Drop arm test: negative AC Joint Signs Active horizontal adduction pain: negative XR shoulder 2+ views left Imaging Result: Xrays AP, axillary and y-scapula of the left shoulder performed on February 17, 2024 demonstrates bone on bone glenohumeral joint. Narrowing of the ac joint in addition. No fractures noted. Humerus centered within the glenoid. There is abnormal glenoid morphology. Impression Advanced arthritis of the glenohumeral joint. 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 Pt given injection Left Shoulder SA space Procedure, treatment alternatives, risks and benefits explained, specific risks discussed. Consent was given by the patient. Patient was prepped and draped in the usual sterile fashion. Assessment/Plan Encounter Diagnoses: ICD-10-CM 1. Left shoulder pain, unspecified chronicity M25.512 XR shoulder 2+ views left 2. Glenohumeral arthritis, left M19.012 3. Arthritis of left acromioclavicular joint M19.012 4. Impingement of left shoulder M25.812 L Inj/Asp: L subacromial bursa Discussed surgical intervention and he notes he does not want surgery at this time. Discussion of options, pt notes he would like an injection, side effects of bleeding and infection discussed, would like to proceed with the injection, using aspectic technique 40 mg of depo medrol was injected into the left shoulder subacromial space, pt tolerated well, bandaid applied, may do activities as tolerated, f/u in 2 weeks. 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 Was seen in Ed on 12/31/23; Dx with Warren Palsy. Had a sinus infection the weeks prior; Had taken Azythromycin on his own- reports he has sonya old rx and took it. Then went to urgent care and was prescribed Augmentin. Was in ED one night. Was discharged with Methylprednisolone; Finished course. Pt reports symptoms are improving. Continue to monitor. Discussed with patient importance of not starting or stopping medications without medical advice from provider first. Pt verbalized understanding. Images from the original note were not included. Subjective Patient ID: Lamont Lowery is a 78 y.o. male who presents for Follow-up. HPI Was in ED for Warren Palsy on 12/31/2023- Had a sinus infection the weeks prior; Had taken Azythromycin on his own- reports he has sonya old rx and took it. Then went to urgent care and was prescribed Augmentin. Was discharged with Methylprednisolone; Finished course. Pt reports symptoms are improving. Review of Systems Constitutional: Negative for activity change, appetite change, chills, diaphoresis, fatigue, fever and unexpected weight change. HENT: Negative for congestion, ear pain, rhinorrhea, sinus pressure, sinus pain, sneezing, sore throat, trouble swallowing and voice change. Eyes: Negative for visual disturbance. Respiratory: Negative for cough, chest tightness, shortness of breath and wheezing. Cardiovascular: Negative for chest pain, palpitations and leg swelling. Gastrointestinal: Negative for abdominal distention, abdominal pain, blood in stool, constipation, diarrhea and vomiting. Genitourinary: Negative for decreased urine volume, dysuria, flank pain, frequency, hematuria and urgency. Musculoskeletal: Negative for arthralgias, gait problem, joint swelling and myalgias. Skin: Negative for rash. Neurological: Positive for facial asymmetry. Negative for dizziness, tremors, syncope, weakness, light-headedness and headaches. Psychiatric/Behavioral: Negative for decreased concentration and suicidal ideas. The patient is not nervous/anxious. Hematological: Does not bruise/bleed easily. Endocrine: Negative for cold intolerance, heat intolerance, polydipsia, polyphagia and polyuria. Objective Physical Exam Vitals reviewed. Constitutional: Appearance: Normal appearance. HENT: Head: Normocephalic and atraumatic. Right Ear: Tympanic membrane normal. Left Ear: Tympanic membrane normal. Nose: Nose normal. Mouth/Throat: Mouth: Mucous membranes are moist. Pharynx: Oropharynx is clear. Eyes: Pupils: Pupils are equal, round, and reactive to light. Cardiovascular: Rate and Rhythm: Normal rate and regular rhythm. Pulses: Normal pulses. Heart sounds: Normal heart sounds. Pulmonary: Effort: Pulmonary effort is normal. Breath sounds: Normal breath sounds. Abdominal: General: Abdomen is flat. Bowel sounds are normal. Palpations: Abdomen is soft. Musculoskeletal: General: Normal range of motion. Cervical back: Normal range of motion. Right lower leg: Edema present. Skin: General: Skin is warm and dry. Capillary Refill: Capillary refill takes less than 2 seconds. Neurological: General: No focal deficit present. Mental Status: He is alert and oriented to person, place, and time. Cranial Nerves: Facial asymmetry present. Comments: Right side facial asymmetry observed Psychiatric: Mood and Affect: Mood normal. Behavior: Behavior normal. Assessment/Plan Problem List Items Addressed This Visit Gordon's palsy - Primary Developed right sided facial asymmetry. Was seen in Ed on 12/31/23; Dx with Warren Palsy. Had a sinus infection the weeks prior; Had taken Azythromycin on his own- reports he has sonya old rx and took it. Then went to urgent care and was prescribed Augmentin. Was in ED one night. Was discharged with Methylprednisolone; Finished course. Pt reports symptoms are improving. Continue to monitor. Discussed with patient importance of not starting or stopping medications without medical advice from provider first. Pt verbalized understanding. documented in this encounter [facility] 12-13-2023 History of Present illness Narrative Associated Problem(s): Seasonal allergic rhinitis Ringing in ears has been ongoing for several years. Admits: Sinus congestion Runny nose Post nasal drip Initiated Flonase and cetirizine for allergy symptoms. Advised pt to continue this regimen, if no relief by next OV we can consider next steps such as ENT referral for tinnitus. Associated Problem(s): Primary hypertension (CMS/HCC) Pt was previously prescribed Valsartan 80mg once daily at bedtime. Pt changed medication regimen himself to Valsartan 80mg at bedtime 40mg Valsartan each AM. ( Chronic condition) Changed dosage himself due to having ringing in ears. Discussed with patient the significance of adhering to medication regimen and not making any changes without notifying provider. Brought very thorough BP logs to visit. Logs indicate Pt did not need double doage. Advised pt to return to 80mg nightly, continue checking BP twice daily. Bring logs back with him to next visit. We will re-evaluate medication regimen at next visit. Images from the original note were not included. Subjective Patient ID: Lamont Lowery is a 78 y.o. male who presents for [facility] (/). HPI Specialists: Neurology- [facility] Urology- Dr. Viera HTN: Pt changed medication regimen himself to Valsartan 80mg at bedtime 40mg Valsartan each AM. Brought BP logs with him to visit. Logs indicate PT did not need double dosage. Started it himself due to having ringing in ears. Discussed with patient the significance of adhering to medication regimen and not making any changes without notifying provider. Ringing in ears has been ongoing for several years. Denies frequent ear infections Hearing loss Dizziness cough Admits: Sinus congestion Runny nose Post nasal drip Initiated Flonase and cetirizine for allergy symptoms. Advised pt to continue this regimen, if no relief by next OV we can consider next steps such as ENT referral for tinnitus. Review of Systems Constitutional: Negative for activity change, appetite change, chills, diaphoresis, fatigue, fever and unexpected weight change. HENT: Positive for rhinorrhea, sinus pressure and tinnitus. Negative for congestion, ear pain, sinus pain, sneezing, sore throat, trouble swallowing and voice change. Eyes: Negative for visual disturbance. Respiratory: Negative for cough, chest tightness, shortness of breath and wheezing. Cardiovascular: Negative for chest pain, palpitations and leg swelling. Gastrointestinal: Negative for abdominal distention, abdominal pain, blood in stool, constipation, diarrhea and vomiting. Genitourinary: Negative for decreased urine volume, dysuria, flank pain, frequency, hematuria and urgency. Musculoskeletal: Negative for arthralgias, gait problem, joint swelling and myalgias. Skin: Negative for rash. Neurological: Negative for dizziness, tremors, syncope, weakness, light-headedness and headaches. Psychiatric/Behavioral: Negative for decreased concentration and suicidal ideas. Hematological: Does not bruise/bleed easily. Endocrine: Negative for cold intolerance, heat intolerance, polydipsia, polyphagia and polyuria. Objective Physical Exam Vitals reviewed. Constitutional: Appearance: Normal appearance. HENT: Head: Normocephalic and atraumatic. Right Ear: Tympanic membrane normal. Left Ear: Tympanic membrane normal. Nose: Nose normal. Mouth/Throat: Mouth: Mucous membranes are moist. Pharynx: Oropharynx is clear. Eyes: Pupils: Pupils are equal, round, and reactive to light. Cardiovascular: Rate and Rhythm: Normal rate and regular rhythm. Pulses: Normal pulses. Heart sounds: Normal heart sounds. Pulmonary: Effort: Pulmonary effort is normal. Breath sounds: Normal breath sounds. Abdominal: General: Abdomen is flat. Bowel sounds are normal. Palpations: Abdomen is soft. Musculoskeletal: General: Normal range of motion. Cervical back: Normal range of motion. Skin: General: Skin is warm and dry. Capillary Refill: Capillary refill takes less than 2 seconds. Neurological: General: No focal deficit present. Mental Status: He is alert and oriented to person, place, and time. Psychiatric: Mood and Affect: Mood is anxious. Behavior: Behavior normal. Assessment/Plan Problem List Items Addressed This Visit Encounter for wellness examination in adult Relevant Orders TSH W/REFLEX TO FT4 Lipid panel Hemoglobin A1c Comprehensive metabolic panel CBC and differential Seasonal allergic rhinitis Ringing in ears has been ongoing for several years. Admits: Sinus congestion Runny nose Post nasal drip Initiated Flonase and cetirizine for allergy symptoms. Advised pt to continue this regimen, if no relief by next OV we can consider next steps such as ENT referral for tinnitus. Relevant Medications fluticasone (Flonase) 50 MCG/ACT nasal spray Loratadine 10 MG capsule Primary hypertension (CMS/HCC) - Primary Pt was previously prescribed Valsartan 80mg once daily at bedtime. Pt changed medication regimen himself to Valsartan 80mg at bedtime 40mg Valsartan each AM. ( Chronic condition) Changed dosage himself due to having ringing in ears. Discussed with patient the significance of adhering to medication regimen and not making any changes without notifying provider. Brought very thorough BP logs to visit. Logs indicate Pt did not need double doage. Advised pt to return to 80mg nightly, continue checking BP twice daily. Bring logs back with him to next visit. We will re-evaluate medication regimen at next visit. Relevant Medications valsartan (Diovan) 80 MG tablet documented in this encounter [facility] 12-12-2023 Instructions Josh Hearn NP - 12/12/2023 3:00 PM EDT FASTING labs ordered. Nothing to eat or drink for 12 hours prior to blood draw. Water and black coffee ok. Your blood pressure is GOOD in the office today. Check your blood pressure at home 3 times per week, preferably in the afternoon. Goal <130/90. Record results in blood pressure log. Bring back with you to your next visit. Diet: Eat three meals per day. Breakfast, lunch, and dinner. Avoid snacking. Avoid eating after 5/6 pm. Daily protein GOAL 35% of your intake; 30g per meal. Daily calorie GOAL 1,800-2,000 per day. Consider tracking your food intake on MyFtinessPal or LoseIt Water: Increase water intake; GOAL 64-80oz of water per day. Exercise: Increase activity. GOAL 30 minutes, 5 days per week. START SLOW. Start with 5 minutes, 5 days per week. Then increase to 10 days, 5 days per week. Continue to increase until you reach the goal. Increase steps; GOAL 10,000 steps per day. Be sure to get adequate sleep; GOAL 6-8 hours of sleep per night. documented in this encounter [facility] 10-15-2023 Hospital Discharge instructions Patient Education 10/15/2023 [...] therapy. Follow these instructions at home: Take kxri-gyn-mtrnxjk and prescription medicines only as told by [...] provider. Document Revised: 11/17/2020 Document Reviewed: 11/17/2020 [employer] Views Patient Education 2022 [employer]. Follow Up Care 10/17/2022 15:04:57 With:EWA VIERA PA-C, URL Address: [address] [place] [phone] When: Unknown Comments:1 year w/ PSA, LFTs, Lipids, H&H, total T level [facility] 10-15-2023 Evaluation + Plan note Diagnostic Tests PendingTestosterone Level Total 10/15/23epatic Function Panel 10/15/23Lipid Panel 10/15/23emoglobin and Hematocrit 10/15/23PSA Total 10/15/23 [facility] 10-15-2023 Note Patient Education Urology [...] Follow these instructions at home: ? Take hvbq-qrb-ebpgjlt and prescription medicines only as told by [...] provider. Document Revised: (more content not included)... [facility] 03-19-2023 Evaluation note Encounter Date [...] today 120s/80s, he reports white coat syndrome. [facility] Other 12-14-2023 Evaluation note* Encounter Date Diagnosis [...] (suspected) exposure to covid-19 (ICD-10 - Z20.822) [facility] Other 07-19-2023 Hospital Discharge instructions Patient Education [...] therapy. Follow these instructions at home: Take hyct-spa-oyxyyyg and prescription medicines only as told by [...] provider. Document Revised: 11/17/2020 Document Reviewed: 11/17/2020 [employer] Patient Education 2022 [employer]. Follow Up Care 08/31/2022 12:38:12 With:EWA VIERA PA-C, URL Address: [address] [address] When: Unknown [facility] 01-16-2023 Hospital Discharge instructions Patient [...] 06/24/2001 Document Revised: 07/09/2019 Document Reviewed: 02/11/2017 Emergent Views Patient Education 2019 [employer]. Follow Up Care 10/16/2021 15:07:22 With:SCOTT HOANG, Murali Blancas, URL Address: [address] [place], [place] [id number]- When:6 months Comments:PSA & testosterone [facility] 07-18-2022 Hospital Discharge instructions Patient Education [...] urethra. Follow these instructions at home: Take ckkq-any-myqmart and prescription medicines only as told by [...] 03/18/2006 Document Revised: 02/10/2019 Document Reviewed: 04/22/2017 Emergent Views Patient Education [employer]. Follow Up Care 04/17/2021 14:02:48 With:Murali SCHRADER MD, URL Address: [address] [place] [address]- When:3 months Comments:Testosterone level [facility] evaluation + Plan note Future Appointments Appointment Date:04/16/2022 02:15:00 PM Scheduled Provider:Murali SCHRADER MD Location:[facility] Appointment Type:URO Office Visit Diagnostic Tests Pending * Testosterone Level Total 10/16/21 [facility] evaluation + Plan note Future Appointments Appointment Date:10/15/2022 02:15:00 PM Scheduled Provider:Murali SCHRADER MD Location:[facility] Appointment Type:URO Office Visit Diagnostic Tests Pending * PSA Total 04/16/22 * Testosterone Level Total 04/16/22 [facility] [employer]aluation + Plan note Future Appointments Appointment Date:10/23/2023 01:20:00 PM Scheduled Provider:EWA VIERA PA-C Location:[facility] Appointment Type:URO Office Visit Diagnostic Tests Pending * PSA Total 08/31/23 * Testosterone Level Total 10/17/22 * Hemoglobin and Hematocrit 08/31/23 * Hepatic Function Panel 08/31/23 * Lipid Panel 08/31/23 [facility] evaluation noteNo [facility] archify Other Evaluation note* Diagnosis Onset Date Resolution Status Bee sting reaction acute [facility] Work Phone: Evaluation note* Diagnosis Onset Date Resolution Status Bee sting reaction acute Acute maxillary sinusitis, unspecified acute [facility] Work Phone: Evaluation note* Diagnosis Primary hypertension (CMS/HCC)- Primary Unspecified essential hypertension Encounter for wellness examination in adult Seasonal allergies Allergic rhinitis, cause unspecified Seasonal allergic rhinitis, unspecified trigger Screening for hyperlipidemia Screening for lipoid disorders Screening for diabetes mellitus Gordon's palsy- Primary [facility] Diagnosis Primary hypertension (CMS/HCC)- Primary Unspecified essential hypertension Encounter for wellness examination in adult Seasonal allergies Allergic rhinitis, cause unspecified Seasonal allergic rhinitis, unspecified trigger Screening for hyperlipidemia Screening for lipoid disorders Screening for diabetes mellitus Gordon's palsy- Primary Left shoulder pain, unspecified chronicity- Primary Glenohumeral arthritis, left Arthritis of left acromioclavicular joint Impingement of left shoulder [facility] Diagnosis Primary hypertension (CMS/HCC)- Primary Unspecified essential hypertension Encounter for wellness examination in adult Seasonal allergies Allergic rhinitis, cause unspecified Seasonal allergic rhinitis, unspecified trigger Screening for hyperlipidemia Screening for lipoid disorders Screening for diabetes mellitus Gordon's palsy- Primary Seasonal allergies Allergic rhinitis, cause unspecified Left shoulder pain, unspecified chronicity- Primary Glenohumeral arthritis, left Arthritis of left acromioclavicular joint Impingement of left shoulder [facility] Diagnosis Primary hypertension (CMS/HCC)- Primary Unspecified essential hypertension Encounter for wellness examination in adult Seasonal allergies Allergic rhinitis, cause unspecified Seasonal allergic rhinitis, unspecified trigger Screening for hyperlipidemia Screening for lipoid disorders Screening for diabetes mellitus [facility] Diagnosis Primary hypertension (CMS/HCC)- Primary Unspecified essential hypertension Encounter for wellness examination in adult Seasonal allergies Allergic rhinitis, cause unspecified Seasonal allergic rhinitis, unspecified trigger Screening for hyperlipidemia Screening for lipoid disorders Screening for diabetes mellitus Gordon's palsy- Primary Left shoulder pain, unspecified chronicity- Primary Glenohumeral arthritis, left Arthritis of left acromioclavicular joint Impingement of left shoulder [facility]* Diagnosis Encounter for wellness examination in adult- Primary documented in this encounter [facility]* Diagnosis Onset Date Resolution Status Admit Date Bronchitis acute May 09, 2024 9:08am [facility] Work Phone: History general Narrative - Reported* Type Description Date Medical History glaucoma Medical History insomnia Medical History GERD (gastroesophageal reflux di sease) Medical History Hypothyroidism Surgical History tonsillectomy Surgical History appendectomy Surgical History carpal tunnel release right Hospitalization History see above [facility] Other Hospital course Narrative No data available for this section [facility] [employer] note No data available for this section [facility] Summary Purpose Family History No Family History Records Found Relationship Condition Age at Onset Recorded Date/T mason father Unknown mother Unknown Advance Directives No Advanced Directives Records Found Advance Directive Response Recorded Date/ Time Advance Directives No October 31 2:36pm Advance Directive Response Recorded Date/ Time Advance Directives No October 31 1:36pm Chief Complaint and Reason for Visit Chief Complaint bug bite on left bearden d,foot Reason for Visit Bee sting reaction Chief Complaint bug bite on left bearden d,foot cough,congestion Reason for Visit Bee sting reaction Acute maxillary sinusitis, unspecified Chief Complaint Admit Date Sinus congestion, cough May 09 9:08am Reason for Visit Admit Date Bronchitis May 09, 2024 9 :08am Additional Source Comments (unrecognized sect ion and content) No Status Records FoundNo Status Records FoundNo Status Records FoundNo Status Records FoundNo Status Records FoundNo Status Records Found INFORMATION SOURCE (unrecogn ized section and content) DATE CREATED AUTHOR 06/20/2018 [facility] DATE CREATED AUTHOR AUTHOR'S ORGANIZ ATION 05/29/2022 [facility] DATE CREATED AUTHOR AUTHOR'S ORGANIZ ATION 01/05/2024 [facility] DATE CREATED AUTHOR AUTHOR'S ORGANIZ ATION 03/12/2024 [facility] EPIC DATE CREATED AUTHOR AUTHOR'S ORGANIZ ATION 04/18/2024 [facility] DATE CREATED AUTHOR AUTHOR'S ORGANIZ ATION 05/13/2024 [facility] Care Team (unrecognized sect ion and content) [...] December 28, 2023 End: December 28, 2023 Polygraph Examiner Relationship Specialty Start Date End Date Roddy Orona MD [address] [place] [phone] PCP - General Family Medicine 12/09/23 Josh Hearn NP [address] [address] Nurse Practitioner Family Medicine 12/09/23 Polygraph Examiner Relationship Specialty Start Date End Date Roddy Orona MD [address] [place] [address] PCP - General Family Medicine 12/09/23 Josh Hearn NP [address] [phone] Nurse Practitioner Family Medicine 12/09/23 Polygraph Examiner Relationship Specialty Start Date End Date Frederick Gonzalez MD [address] [place] [address] PCP - General Family Medicine 02/17/24 Polygraph Examiner Relationship Specialty Start Date End Date Frederick Gonzalez MD [address] [place] [address] PCP - General Family Medicine 02/17/24 Polygraph Examiner Relationship Specialty Start Date End Date Frederick Gonzalez MD [address] [place] [address] PCP - General Family Medicine 02/17/24 Polygraph Examiner Relationship Specialty Start Date End Date Roddy Orona MD [address] [place] [place] [phone] PCP - General Family Medicine 12/09/23 Josh Hearn NP [address] [place] [address] Nurse Practitioner Family Medicine 12/09/23 Polygraph Examiner Relationship Specialty Start Date End Date Roddy Orona MD [address] [place] [phone] PCP - General Family Medicine 12/09/23 Josh Hearn NP [address] [place] [address] Nurse Practitioner Family Medicine 12/09/23 Polygraph Examiner Relationship Specialty Start Date End Date Frederick Gonzalez MD [address] [place] [address] PCP - General Family Medicine 02/17/24 Polygraph Examiner Relationship Specialty Start [place] [address] [place] [address] PCP - General Family Medicine 02/17/24 Polygraph Examiner Relationship Specialty Start Date End Date Roddy Orona MD [address] [facility] [place] [address] PCP - General Family Medicine 12/09/23 Josh Hearn NP [address] [facility] [place] [address] Nurse Practitioner Family Medicine 12/09/23 Team Status: Active Member Role Status Dates Frederick Gonzalez DO Primary Care Provider Active Team Status: Inactive Member Role Status Dates Frederick Gonzalez DO Primary Care Provider Active Start: May 09, 2024 End: May 09, 2024 Magnolia Costa APRN Attending Provider Active S tart: May 09, 2024 End: May 09, 2024 REASON FOR VISIT (unrecogniz ed section and content) Reason Comments Follow-up Reason Comments Pain Reason Comments Med Refill Reason Comments Establish Care Reason Comments Follow-up Goals (unrecognized section and content) Goals may [...] BE BASED ON THE PRIMARY CLINICAL RECORDS. [facility] [employer] [facility]. provides no warranty or guarantee of the accuracy or completeness of information in this document.
[2024-05-16 10:22] LABS: Thyroid Stimulating Hormone 2.279 uIU/mL (0.358-3.740)
== END 2024-05-16 09:22 | disposition home or self-care (01) ==
LOC: LAB 09:21
PROVIDERS: PCP Family Medicine; Visit Provider Family Medicine
DX: E03.9 Hypothyroidism, unspecified (principal)
CPT/HCPCS: 36415; 84436; 84443

== ENCOUNTER 2024-09-11 08:40 | Outpatient (OUT) | payer MEDICARE, OTHER, SELFPAY ==
--- OUTSIDE RECORDS SUMMARY | 2024-09-11 08:48 | XMS_ITS | Encounter Summary ---
Author Organization [facility] Address [address] [place] [address] Care Team Providers Care Operator Prefinish Name Role Phone Roddy Orona MD Primary Care Provider [phone] Shannon Hearn EMBROIDERY FINISHER Unavailable [phone] Frederick Arias MD Primary Care Provider [phone] Encounter Details Date Type Department Care Team (Late Contact Info) Description 01/09/2024 Abstract [facility] [address] [place] [address] Shannon Hearn NP Social History Tobacco Use Types Packs/Day Years Used Date Smoking Tobacco: Never Passive Smoke Exposure: Never Smokeless Tobacco: Never Alcohol Use Standard Drinks/Week Comments Never 0 (1 standard drink = 0.6 oz pur e alcohol) PHQ-2 Answer Date Recorded Patient Health Questionnaire-2 Score 0 12/12/2023 Sex and Gender Information Value Date Recorded Sex Assigned at Not on file Legal Sex Male 6:46 PM EDT Gender Identity Not on file Sexual Orientation Not on file documented as of this encounter Plan of Treatment Not on file documented as of this encounter Visit Diagnoses Not on filedocumented in this encounter Care Teams Operator Prefinish Relationship Specialty Start Date End Date Roddy Orona MD [address] [place] [address] PCP - General Family Medicine 12/09/23 02/16/24 Frederick Arias MD [address] [facility] [place] [address] PCP - General Family Medicine 02/17/24 Shannon Hearn NP [address] [place] [address] Nurse Practitioner Family Medicine 12/09/23 02/16/24 documented as of this encounter
--- OUTSIDE RECORDS SUMMARY | 2024-09-11 08:48 | XMS_ITS | Clinical Summary ---
Author Organization [facility] Address [address] [place], [place] [id number] Care Team Providers Care Spud Grader Name Role Phone Daniel Onofre Primary Care Provider Allergies No known active allergies Medications lisinopril (ZESTRIL, PRINIVIL) 10 mg tablet Take 10 mg by mouth once daily. Active temazepam (RESTORIL) 30 mg cap Take by mouth at bedtime as needed. Active testosterone cypionate (DEPO-TESTOSTER ONE) 100 mg/mL injection Inject intramuscularly one time only. Active timolol hemihydrate (BETIMOL) 0.25 % ophthalmic solution twice daily. Active lovastatin (MEVACOR) 10 mg tabletIndicatio ns:Polycythemia ,Erythrocytosis lovastatin 10 mg tablet Take 1 tablet every day by oral route. Active Omeprazole Magnesium (PRILOSEC OTC) 20 mg tabletIndicatio ns:Polycythemia ,Erythrocytosis Prilosec OTC 10mg QD Active testosterone cypionate (DEPO-TESTOSTER ONE) 200 mg/mL injectionIndica tions:Polycythe khurram,Erythrocyto sis testosterone cypionate 200 mg/mL intramuscular oil Active Tadalafil (CIALIS) 5 mg tabletIndicatio ns:Polycythemia ,Erythrocytosis Take 5 mg by mouth. Active CPAPIndications :Polycythemia,E rythrocytosis Active RED YEAST RICE ORALIndications :Polycythemia,E rythrocytosis Take by mouth. A ctive VITAMIN A ORALIndications :Polycythemia,E rythrocytosis Take by mouth. A ctive cholecalciferol , vitamin D3, (VITAMIN D3 ORAL)Indication s:Polycythemia, Erythrocytosis Take by mouth. Active flaxseed oil (OMEGA 3 ORAL)Indication s:Polycythemia, Erythrocytosis Take by mouth. Active GARLIC OIL ORALIndications :Polycythemia,E rythrocytosis Take by mouth. A ctive Zinc 50 mg tabIndications: Polycythemia,Er ythrocytosis Take by mouth. Ac tive Active Problems Problem Noted Date Diagnosed Date Erythrocytosis 05/29/2018 Family History Medical History Relation Comments Parkinson s Disease Father smoker Father esophageal cancer Mother hypothyroidism Mother Breast Cancer Sister Relation Status Comments Brother Alive Father Mother Sister Social History Tobacco Use Types Packs/Day Years Used Date Smoking Tobacco: Never Smokeless Tobacco: Never Alcohol Use Standard Drinks/Week Comments Yes 0 (1 standard drink = 0.6 oz pur e alcohol) occasionally PHQ-2 Answer Date Recorded PHQ-2 score 0 06/19/2018 Area Deprivation Index Answer Date Jonn rded National Score (1-100), lower number is lower ri sk Not on file 03/08/2020 State Score (1-10), lower number is lower risk N ot on file 03/08/2020 Data from: https://www.neighborhoodatlas.medicine.[facility]/. Last address used for calculation Not on file 03/08/2020 Sex and Gender Information Value Date Recorded Sex Assigned at Not on file Legal Sex Male 11:31 AM EST Gender Identity Not on file Sexual Orientation Not on file Last Filed Vital Signs Vital Sign Reading Time Taken Comments Blood Pressure 186/97 06/19/2018 1:48 PM EDT Pulse 74 06/19/2018 1:48 PM EDT Temperature 36.7 C (98 F) 06/19/2018 1:48 PM EDT Respiratory Rate 18 06/19/2018 1:48 PM EDT Oxygen Saturation 97% 06/19/2018 1:48 PM EDT Inhaled Oxygen Concentration - - Weight 93.6 kg (206 lb 4.8 oz) 06/19/2018 1:48 P M EDT Height 172.7 cm (5' 7.99 ) 06/19/2018 1:48 PM ED T Body Mass Index 31.38 06/19/2018 1:48 PM EDT Plan of Treatment Health Maintenance Due Date Last Done Comments Anxiety Screening 09[birth year]04/1963 Depression Screening 09/04/1965 Hepatitis C Screening 09/04/1965 Diabetes Screening 09/04/1992 Shingrix Vaccine (2 of 3) 12/31/2012 11/05/2012 RSV Vaccine (1 - 1-dose 75+ series) 09/04/2022 Covid-19 Vaccine (1 - season) 2023 Advance Directive Discussion 04/01/2024 Influenza Vaccine (Season Ended) 2024 DTaP,Tdap,Td Vaccine (2 - Td or Tdap) 04/10/202812/2018 Pneumococcal Vaccine: 50+ Completed 09/23/2014, 04/2012 Insurance MEDICARE Care Teams Spud Grader Relationship Specialty Start Date End Date Daniel Onofre DO [address] [place] [address] PCP - General Family Medicine 05/14/18
--- OUTSIDE RECORDS SUMMARY | 2024-09-11 08:48 | XMS_ITS | Clinical Summary ---
Author Organization [facility] Address [address] [place] [address] Care Team Providers Care Soft Shoe Dancer Name Role Phone House, Frederick Bradley MD Primary Care Provider [phone] Allergies No known active allergies Medications tadalafil (Cialis) 5 MG tablet Take 5 mg by mouth Daily Active zolpidem CR (Ambien CR) 12.5 MG ER tablet Take 12.5 mg by mouth as needed at bedtime for sleep Do not crush, chew, or split. Active timolol (Timoptic) 0.5 % ophthalmic solution Administer 1 drop into both eyes Daily Active cholecalciferol (Vitamin D3) 200 Unit tablet split tablet Take by mouth Act ruddy valsartan (Diovan) 80 MG tabletIndication s:Primary hypertension Take 1 tablet (80 mg) by mouth at bedtime 90 tablet 12/12/19 24 Active fluticasone (Flonase) 50 MCG/ACT nasal sprayIndications :Seasonal allergies Administer 1-2 sprays into each nostril Daily Shake gently. Before first use, prime pump. After use, clean tip and replace cap. 16 g 2 12/12/19 24 025 Active albuterol (ProAir Digihaler) 90 mcg/act breath-activated inhaler (w/ sensor) 0 Refill(s) 05/14/19 25 Active ALPRAZolam (Xanax) 0.5 MG tablet 0.5 mg 05/14/19 25 Active lisinopril 10 MG tablet Take 10 mg by mouth in the morning. Active temazepam (Restoril) 30 MG capsule Take by mouth Daily as needed Active testosterone cypionate (Depo-Testostero ne) 200 MG/ML injection testosterone cypionate 200 mg/mL intramuscular oil Active tiZANidine (Zanaflex) 4 MG capsule 0 Refill(s) 06/11/19 25 Active omeprazole (PriLOSEC) [address] capsuleIndicatio ns:LPRD (laryngopharynge al reflux disease) Take 1 capsule (40 mg) by mouth in the morning. Take before meals. Do not crush or chew.. 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 Was seen in [place] on 12/31/23; Dx with [place] Palsy. Had a sinus infection the weeks [...] advice from provider first. Pt verbalized understanding. Primary hypertension 12/13/2023 Assessment & Plan (12/13/2023 12:47 PM EDT): Pt was previously prescribed Valsartan 80mg once [...] will re-evaluate medication regimen at next visit. 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 Admits: Sinus congestion Runny nose Post nasal drip Initiated Flonase and cetirizine for allergy symptoms. Advised pt to continue this regimen, if no relief by next OV we can consider next steps such as ENT referral for tinnitus. Erythrocytosis 05/29/2018 Encounters Date Type Department Care Team Description 07/01/2024 10:50 AM EDT Office Visit [facility] [address] [facility] [address] [place] [address] Nancy Ferro MD LINSEY (obstructive sleep apnea) (Primary Dx); LPRD (laryngopharyngeal reflux disease) 07/01/2024 Bamboo flowsheet [facility] [address] [facility] [address] [place] [address] Nancy Ferro MD 07/01/2024 Travel from Last 3 Months Immunizations Immunization Administration Dates Next Due ABRYSVO - Respiratory syncyt ial virus (RSV), vaccine, bivalent, protein subunit RSV prefusion F, diluent reconstituted, 0.5 mL, PF 2023 Moderna SARS-CoV-2 Vaccination 06/24/2020,2020 Pneumococcal, Unspecified 10/09/2012 Tdap 04/10/2018 Family History Medical History Relation Name Comments No Known Problems Father No Known Problems Mother Relation Name Status Comments Father Mother Social History Tobacco Use Types Packs/Day Years Used Date Smoking Tobacco: Never Passive Smoke Exposure: Never Smokeless Tobacco: Never Tobacco Cessation:Counseling Given: Not Answered Alcohol Use Standard Drinks/Week Comments Never 0 [...] Sign Reading Time Taken Comments Blood Pressure 135/70 07/01/2024 10:45 AM EDT Pulse 68 07/01/2024 10:45 AM EDT Temperature 35.7 C (96.2 F) 01/09/2024 1:47 PM EDT Respiratory Rate 16 01/09/2024 1:47 PM EDT Oxygen Saturation 98% 01/09/2024 1:47 PM EDT Inhaled Oxygen Concentration - - Weight 90.7 kg (200 lb) 07/01/2024 10:45 AM EDT Height 167.6 cm (5' 6 ) 07/01/2024 10:45 AM EDT Body Mass Index 32.28 07/01/2024 10:45 AM EDT Plan of Treatment Health Maintenance Due Date Last Done Comments Influenza Vaccine (Season Ended) 2024 Pneumococcal Vaccine: 65+ Ye ars (1 of 1 - PCV) 01/08/2025 10/09/2012 Postponed from 09/04 (Patient Refused) Insurance MEDICARE [facility] Care Teams Soft Shoe Dancer Relationship Specialty Start Date End Date Frederick Arias MD [address] [place] [address] PCP - General Family Medicine 02/17/24
--- OUTSIDE RECORDS SUMMARY | 2024-09-11 08:48 | XMS_ITS | Clinical Summary ---
Author Organization [facility] Address [facility] [place] [id number] [address] [place] [address] Care Team Providers Care Datastage Developer Name Role Phone Unavailable Primary Care Provider Unavailabl e Social History Tobacco Use Types Packs/Day Years Used Date Smoking Tobacco: Never Assessed Childcare Answer Date Recorded Childcare Unknown 09/10/2018 Employment Answer Date Recorded Employment Unknown 09/10/2018 Sex and Gender Information Value Date Recorded Sex Assigned at Not on file Legal Sex Male 11:34 AM EDT Gender Identity Not on file Sexual Orientation Not on file Plan of Treatment Health Maintenance Due Date Last Done Comments Depression Screening 1957 Tobacco Screening 1957 Zoster (Shingles) Vaccine (1 of 2) 09/04/1997 Fall Risk Screening 09/04/2012 COVID-19 Vaccine (2023-2 5 season) 2023 03/16/2021, 06/29/2020, 06/24/2020, Additional history exists Influenza Vaccine 11/30/2024 DTaP,Tdap and Td Vaccines (2 - Td or Tdap) 04/10/2028 04/10/2018 Medical Devices Not on file
--- OUTSIDE RECORDS SUMMARY | 2024-09-11 09:02 | XMS_ITS | CCD ---
Author Organization [facility]ini[facility] Care Team Providers Care Medical Reimbursement Manager Name Role Phone NARCISO MARINELLI Attending Unavailable RICE, MURALI Blancas Referring Unavailable FANNING, NARCISO Zapien Referring Unavailable FANNING, NARCISO Zapien Attending Unavailable RUPERTO BLAS Referring Unavailab le [place], Frederick Bradley Primary Care Physician LISA, DR HARMAN Primary [...] able Roddy Orona MD Primary Care Provider [phone] Josh Hearn NP Unavailable Frederick Gonzalez MD Primary Care Provider EWA VIERA Attending Unavailable EWA VIERA Attending Unavailable HOUSE, DO FREDERICK Bradley Attending Unavailable HOUSE, FREDERICK Bradley Primary Care Unavailable HOUSE, FREDERICK Bradley Primary Care Unavailable HOUSE, DO FREDERICK Bradley Attending Unavailable HOUSE, DO FREDERICK Bradley Attending Unavailable HOUSE, FREDERICK Bradley Primary Care Unavailable EDA JUNIOR Attending Unavailable JOSH HEARN Attending UnavailJOSH Chavez Attending UnavailBRII Trivedi Attending Unavailable APLINGBRII Referring Unavailable APLBRII KATE Attending Unavailable Allergies Allergy Classification Reported Allergen(s) Allergy Type Date of Onset Reaction(s) Facility (1 source) No Known Medication Allergies; 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: [No Known Medication Allergies] Propensity to adverse reactions (disorder) [facility] Repository Medications Current Medications Medication Drug Class(es) Dates Sig (Normalized) Sig (Original) sensor 200 actuat albuterol 0.09 mg/actuat dry powder inhaler (3 sources) beta2-Adrenergic Agonist Start: 05-14-2024 albuterol (ProAir Digihaler) 90 mcg/act breath-activated inhaler (w/ sensor) 0 Refill(s) 05/14/2024 Active Albuterol Sulfate 90 mcg/actuation HFA aerosol inhaler (1 source) Start: 05-09-2024 Albuterol Sulfate 90 mcg/actuation HFA aerosol inhaler Active 2 INH INHALATION EVERY 4-6 HOURS as needed for shortness of breath or wheezing 6.7 May 09, 2024 12:00am ALPRAZolam 0.5 mg oral tablet (3 sources) Benzodiazepine Start: 05-14-2024 ALPRAZolam (Xanax) 0.5 MG tablet 0.5 mg 05/14/2024 Active azithromycin 250 mg oral tablet (2 [...] (Vitamin D3) 200 Unit tablet split tablet (16 sources) cholecalciferol (Vitamin D3) 200 Unit tablet split tablet Take by mouth Active doxycycline hyclate 100 mg oral capsule (3 sources) Tetracycline-class Drug Start: 06-10-2024 End: 07-01-2024 doxycycline (Vibramycin) 100 MG capsule 100 mg 06/10/2024 07/01/2024 Discontinued (Therapy completed) famotidine 20 mg oral tablet (2 sources) Histamine-2 Receptor Antagonist Start: 07-01-2024 End: 09-29-2024 take 1 tablet by mouth at bedtime famotidine (Pepcid) 20 MG tablet Indications: LPRD (laryngopharyngeal reflux disease) Take 1 tablet (20 mg) by mouth at bedtime 90 tablet 07/01/2024 09/29/2024 Active fluticasone propionate 0.05 mg/actuat metered dose nasal spray (18 sources) Corticosteroid Start: 12-12-2023 End: 12-11-2024 take 1-2 spray(s) nasal route once daily fluticasone (Flonase) 50 MCG/ACT nasal spray Indications: Seasonal allergies Administer 1-2 sprays into each nostril Daily Shake gently. Before first use, prime pump. After use, clean tip and replace cap. 16 g 2 12/12/2023 12/11/2024 Active levothyroxine sodium 0.075 mg oral tablet [...] empty stomach Orally Once a day Active lisinopril 10 mg oral tablet (3 sources) Angiotensin Converting Enzyme Inhibitor take 1 tablet by mouth in the morning lisinopril 10 MG tablet Take 10 mg by mouth in the morning. Active loratadine 10 mg oral tablet (19 sources) Start: End: take 1 tablet by mouth once daily at bedtime Allergy Relief 10 MG tablet Indications: Seasonal allergies TAKE 1 TABLET BY MOUTH ONCE DAILY AT BEDTIME 30 tablet 2 03/05/2024 07/01/2024 Discontinued (Therapy completed) Start: 12-12-2023 End: 03-05-2024 take 1 capsule by mouth at bedtime Loratadine 10 MG capsule Indications: Seasonal allergies Take 10 mg by mouth at bedtime 30 capsule 2 12/12/2023 03/05/2024 Discontinued omeprazole 40 mg delayed release oral capsule (20 sources) Proton Pump Inhibitor Start: 07-01-2024 End: 09-29-2024 take 1 capsule by mouth before mealtime omeprazole (PriLOSEC) [address] capsule Indications: LPRD (laryngopharyngeal reflux disease) Take 1 capsule (40 mg) by mouth in the morning. Take before meals. Do not crush or chew.. 90 capsule 07/01/2024 09/29/2024 Active Start: 12-29-2018 End: 07-01-2024 take 1 capsule by mouth once daily Omeprazole 10 mg capsule,delayed release(DR/EC) Active 10 MG PO Daily October 31, 2023 11:00pm End: 07-01-2024 omeprazole OTC (PriLOSEC OTC ) 20 MG EC tablet Prilosec OTC 10mg QD 07/01/2024 Discontinued (Therapy completed) take 1 capsule by mo [facility] once daily PriLOSEC 10 MG 1 capsule 30 minutes before morning meal Orally Once a day Active predniSONE 20 mg oral tablet (1 source) Start: 05-09-2024 take 2 tablets by mouth once daily Prednisone 20 mg tablet Active 40 MG PO Daily 6 May 09, 2024 12:00am tadalafil 5 mg oral tablet (20 sources) Phosphodiesterase 5 Inhibitor Start: 10-23-2018 take 1 tablet by mouth once daily Cialis 5 mg oral tablet 5 mg = 1 tab(s), Oral, Daily Start Date: 10/23/18 Status: Ordered Temazepam (8 sources) Benzodiazepine Start: 12-25-2018 temazepam 30 mg Start Date: 12/25/18 Status: Ordered temazepam (Maria A ril) 30 MG capsule Take by mouth Daily as needed Active Temazepam Not-Ta radha/PRN testosterone cypionate 100 mg/ml injectable solution (12 sources) Androgen Start: 11-01-2023 Testosterone C ypionate 100 mg/mL oil Active 50 MG IM .Q5days October 31, 2023 11:00pm Start: 11-01-2023 Testosterone C ypionate Active 50 MG IM .Q5November 01, 2023 12:00am Start: 09-17-2023 testosterone c ypionate 100 mg/mL intramuscular solution 50 mg, IntraMuscular, q5day, # 10 mL, Refills(s) 5, Pharmacy: [facility], 172, cm, 10/17/22 13:50:00 EDT, Height/Length Dosing, 95, kg, 10/17/22 13:50:00 EDT, Weight Dosing Start Date: 09/17/23 Status: Ordered Start: 10-17-2022 testosterone c ypionate 100 mg/mL intramuscular solution 50 mg, IntraMuscular, q5day, # 10 mL, Refills(s) 5, Pharmacy: [facility], 172, cm, 10/17/22 13:50:00 EDT, Height/Length Dosing, 95, kg, 10/17/22 13:50:00 EDT, Weight Dosing Start Date: 10/17/22 Status: Ordered Start: 01-22-2022 testosterone c ypionate 100 mg/mL intramuscular solution 50 mg, IntraMuscular, q5day, # 10 mL, Refills(s) 3, Pharmacy: [facility] #[id number], 172, cm, 10/16/21 14:53:00 EDT, Height/Length Dosing, 95, kg, 10/16/21 14:53:00 EDT, Weight Dosing Start Date: 01/22/22 Status: Ordered Start: 10-16-2021 testosterone c ypionate 100 mg/mL intramuscular solution 50 mg, IntraMuscular, q7day, # 10 mL, Refills(s) 3, Pharmacy: [facility] #[id number], 172, cm, 10/16/21 14:53:00 EDT, Height/Length Dosing, 95, kg, 10/16/21 14:53:00 EDT, Weight Dosing Start Date: 10/16/21 Status: Ordered Start: 09-28-2019 Depo-Testoster one 50 mg, IntraMuscular Start Date: 09/28/19 Status: Ordered testosterone cyp ionate (Depo-Testosterone) 200 MG/ML injection testosterone cypionate 200 mg/mL intramuscular oil Active Testosterone Cypionate 50 MG/ML (3 sources) Testosterone [...] both eyes Daily Active Timolol Maleate Active tiZANidine 4 mg oral capsule (3 sources) Central alpha-2 Adrenergic Agonist Start: 06-10-2024 tiZANidine (Zanaflex ) 4 MG capsule 0 Refill(s) 06/10/2024 Active zolpidem tartrate 12.5 mg extended release oral tablet (20 sources) gamma-Aminobutyric Acid-ergic Agonist Start: 11-01-2023 Zolpidem Active MG P O November 01, 2023 12:00am Start: 10-17-2022 Zolpidem [...] 2023 11:20am December 28, 2023 11:22am Start: 11-01-2023 End: 12-28-2023 take 1 tablet [...] Active Problems Problem Classification Problem Date Documented Date Episodic/Chronic Chronic kidney disease (2 sources) Chronic renal failure; 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: [Chronic kidney disease, unspecified] Onset: 07-01-2024 07-01-2024 Chronic Chronic obstructive pulmonary disease and bronchiectasis (2 sources) Bronchitis; 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: [Bronchitis, not specified as acute or chronic] 05-09-2024 Episodic Coagulation and hemorrhagic disorders (1 source) Thrombocytopenia, unspecified; 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: [THROMBOCYTOPENIA UNSPECIFIED] Onset: 09-12-2021 Chronic Esophageal disorders (4 sources) Laryngopharyngeal reflux; 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: [Gastro-esophageal reflux disease without esophagitis] Onset: 07-01-2024 07-01-2024 Chronic Essential hypertension (19 sources) Essential (primary) hypertension; 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: [Essential hypertension] Onset: 09-12-2021 12-13-2023 Chronic Glaucoma (2 sources) Glaucoma; 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: [Unspecified glaucoma] Onset: 07-01-2024 07-01-2024 Chronic Hyperplasia of prostate (20 sources) Benign prostatic hypertrophy with outflow obstruction; 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: [Benign prostatic hyperplasia with lower urinary tract symptoms] Onset: 09-01-2021 Chronic Osteoarthritis (10 sources) Arthritis of left glenohumeral joint; 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: [Primary osteoarthritis, left shoulder] Onset: 07-01-2024 02-17-2024 Chronic Other circulatory disease (1 source) Elevated blood-pressure reading, without diagnosis of hypertension Episodic Other endocrine disorders (4 sources) Testicular hypofunction; 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: [Testicular hypofunction] Onset: 10-16-2021 Chronic Other endocrine disorders (20 sources) Male hypogonadism; 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: [Testicular hypofunction] Onset: 12-12-2023 10-23-2018 Chronic Other endocrine disorders (5 sources) Testicular hypofunction; 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: [TESTICULAR HYPOFUNCTION] Onset: 06-09-2022 Chronic Other hematologic conditions (1 source) Secondary polycythemia; 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: [Secondary polycythemia] Onset: 05-29-2018 Episodic Other male genital disorders (4 sources) Impotence 10-23-2018 Chronic Other male genital disorders (16 sources) Male erectile dysfunction, unspecified; 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: [Impotence of organic origin] Onset: 12-12-2023 12-12-2023 Chronic Other non-traumatic joint disorders (8 sources) Disorder of shoulder; 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: [Other specified joint disorders, left shoulder] 02-17-2024 Episodic Other non-traumatic joint disorders (4 sources) Pain in left shoulder; 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: [Pain in joint, shoulder region] 02-14-2024 Episodic Other nutritional; endocrine; and metabolic disorders (20 sources) Body mass index 30+ - obesity; 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: [Body mass index (BMI) 30.0-30.9, adult] Onset: 12-12-2023 04-04-2020 Chronic Other upper respiratory disease (18 sources) Seasonal allergic rhinitis; 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: [Other seasonal allergic rhinitis] Onset: 12-12-2023 12-13-2023 Chronic Other upper respiratory disease (3 sources) Seasonal allergy; 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: [Other seasonal allergic rhinitis] 03-05-2024 Chronic Other upper respiratory infections (3 sources) Chronic sinusitis, unspecified; 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: [Sinusitis] Onset: 06-10-2024 07-01-2024 Chronic Other upper respiratory infections (6 sources) Acute pharyngitis, unspecified; 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: [Acute pansinusitis, unspecified] Episodic Poisoning by nonmedicinal substances (5 sources) Bee sting; 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: [Toxic effect of venom of bees, accidental (unintentional), initial encounter] 11-01-2023 Episodic Residual codes; unclassified (4 sources) Sleep apnea 10-23-2018 Chronic Residual codes; unclassified (4 sources) Obstructive sleep apnea syndrome; 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: [Obstructive sleep apnea (adult) (pediatric)] Onset: 07-01-2024 07-01-2024 Chronic Residual codes; unclassified (6 sources) Insomnia; 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: [Insomnia, unspecified] Onset: 07-01-2024 10-23-2018 Episodic Thyroid disorders (1 source) Hypothyroidism, unspecified; 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: [HYPOTHYROIDISM UNSPECIFIED] Onset: 09-12-2021 Chronic Unclassified (4 sources) Asymptomatic microscopic hematuria 04-04-2020 Unclassified (4 sources) Drug therapy finding 10-23-2018 Past or Other Problems Problem Classification Problem Date Documented Da te Episodic/Chronic Administrative/social admission (16 sources) First encounter by subject; 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: [Persons encountering health services in other specified circumstances] Onset: 12-12-2023 12-12-2023 Episodic Genitourinary symptoms and ill-defined conditions (20 sources) Delay when starting to pass urine; 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: [Microscopic hematuria] Onset: 10-17-2022 10-23-2018 Episodic Other aftercare (16 sources) Drug therapy finding; 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: [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] Onset: 12-12-2023 12-12-2023 Episodic Other hematologic conditions (16 sources) Erythrocytosis; 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: [Secondary polycythemia] Onset: 05-29-2018 12-12-2023 Episodic Other nervous system disorders (14 sources) Gordon's palsy; 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#1.00OTG TIFF [facility] Outside Recordson 03-10-2024 Outside Records [id number]#1.00OTGT IFF [facility] No Panel Informationon 03-09 Brii Oconnor NP [...] and draped in the usual sterile fashion. [facility]Advize e No Panel Informationon 02-16 Brii Oconnor, LINA 02/17/2024 9:46 PM L Inj/Asp: L subacromial [...] and draped in the usual sterile fashion. [facility] 2 Viewson 02-17-2024 Imaging Result: Xrays AP, axillary and y-scapula of the left shoulder performed on February 17, 2024 demonstrates bone on bone glenohumeral joint. Narrowing of the ac joint in addition. No fractures noted. Humerus centered within the glenoid. There is abnormal glenoid morphology. Impression Advanced arthritis of the glenohumeral joint. Brii Oconnor [employer] [facility] Radiology Study observation (narrative) [facility] XR Shoulder - left 2 ViewsOr dered By: Narciso Zarate on 02-17-2024 [facility] Phone: Lab - Other Lab [facility] Lab - Other Lab Results [id number]#1.00O [facility] Outside Recordson 01-17-2024 Outside Records [id number]#1.00O [facility] Patient Provided Health Data on 01-17-2024 Patient Provided Health Data [id number]#1.00O [facility] Ambulatory Visit Summaryon 0 10-15-2023 Ambulatory Visit [...] Every 5 days Male hypogonadism Pickup at [facility] Unchanged tadalafil (Cialis 5 mg oral tablet) 1 Tablets By Mouth Every day Unchanged timolol ophthalmic (Timolol GFS 0.5% Gel) Every day Unchanged valsartan (valsartan 80 mg Tab) By Mouth Every day Unchanged zolpidem (Ambien CR 12.5 mg Tab-ER) 1 Tablets By Mouth Once a day (at bedtime) as needed for for sleep Pharmacy Information [facility]: [address] [place], [place] [phone] What When Comments Stop Taking aspirin Stop [...] you for choosing us for your care. [facility] Urology Office/Clinic Noteon 10-15-2023 Urology [...] routine UAs Follow-up With When Contact Information EWA VIERA PA-C, URL [address] [place] [address] [phone] Additional Instructions: 1 year w/ PSA, LFTs, Lipids, H&H, total T level Patient Education Hypogonadism, Male Documentation recorded by the timibmisa Mason accurately reflects the services(s) I performed and decisions made by me. Authenticated by Ewa Viera PA-C on 10/15/2023 13:46:14. I, Chhaya Mason, personally scribed for Ewa Viera PA-C on [...] Family History Family (more content not included)... [facility] Comment on above: Result Comment: Elec tronically Signed By: EWA VIERA PA-C\.br\Date and Time Signed: 10/15/23 13:49 EDT\.br\Electronically Co-Signed By: Chhaya Mason\.br\Date and Time Co-Signed: 10/15/23 13:43 EDT Lab Reportson 09-12-2023 Lab Reports [id number]#1.00TIF F [facility] Lab Reportson 06-17-2023 Lab Reports [id number]#1.00TIF F [facility] COVID + FLU Quick Testingon 03-14-2023 SARS-CoV-2 (COVID-19) RNA STEFF+probe Ql (Unsp spec) Negative [facility] Other COVID + FLU Quick Testing Negative [facility] Other Quick Strepon 03-14-2023 S. pyogenes Org specific cx Ql (Throat) Negative [facility] Other Quick Strep [facility] Other TESTOSTERONE, TOTALon 2022 Testosterone [Mass/Vol] 749 ng/dL Normal 264-916 [facility] Comment on above: Result Comment: Adul t male reference interval is based on a population of healthy nonobese males (BMI <30) between 19 and 39 years old. Travison, et.al. JCEM 2017,102;5324-5575. PMID: [id number]. Performed By: #### T ESTTOT #### [facility] [address] [place] [address] Dr. Lazaro Sam TESTOSTERONE, TOTALon 2021 Testosterone [Mass/Vol] 740 ng/dL Normal 264-916 [facility] Comment on above: Result Comment: Adul t male reference interval is based on a population of healthy nonobese males (BMI <30) between 19 and 39 years old. Travison, et.al. JCEM 2017,102;0339-6150. PMID: 26376457. Performed By: #### T ESTTOT #### [facility] [address] [place] [address] Dr. Lazaro Sam CBC AUTO DIFFon 09-08-2021 BASO # 0.0 103/ul Normal 0.0-0.1 [facility] Comment on above: Performed By: #### C BC #### [facility] [address] [place] [address] Dr. Lazaro Sam Basophils/100 WBC (Bld) 0.4 % Normal 0.2-2.0 [facility] Comment on above: Performed By: #### C BC #### [facility] [address] [place] [address] Dr. Lazaro Sam EO # 0.1 103/ul Normal 0.0-0.7 [facility] Comment on above: Performed By: #### C BC #### [facility] [address] [place] [address] Dr. Lazaro Sam Eosinophils/100 WBC (Bld) 0.6 % Critically low 0.9-7.0 [facility] Comment on above: Performed By: #### C BC #### [facility] [address] [place] [address] Dr. Lazaro Sam Erythrocyte distribution width (RBC) [Ratio] 13.7 % Normal 11.0-15.0 [facility] Comment on above: Performed By: #### C BC #### [facility] [address] [place] [address] Dr. Lazaro Sam Hematocrit (Bld) [Volume fraction] 52.4 % Normal 42.0-54.0 [facility] Comment on above: Performed By: #### C BC #### [facility] [address] [place] [address] Dr. Lazaro Sam Hemoglobin (Bld) [Mass/Vol] 17.3 g/dL Normal 14.0-18.0 [facility] Comment on above: Performed By: #### C BC #### [facility] [address] [place] [address] Dr. Lazaro Sam IG # 0.03 10e3/ul Normal 0.00-0.03 [facility] Comment on above: Performed By: #### C BC #### [facility] [address] [place] [address] Dr. Lazaro Sam IG % 0.4 % Normal 0.0-0.5 [facility] Comment on above: Performed By: #### C BC #### [facility] [address] [place] [address] Dr. Lazaro Sam LYMPH # 1.5 103/ul Normal 1.2-3.8 [facility] Comment on above: Performed By: #### C BC #### [facility] [address] [place] [address] Dr. Lazaro Sam Lymphocytes/100 WBC (Bld) 18.7 % Critically low 20.5-60.0 [facility] Comment on above: Performed By: #### C BC #### [facility] [address] [place] [address] Dr. Lazaro Sam MANUAL DIFF REQ NO Normal [facility] Comment on above: Performed By: #### C BC #### [facility] [address] [place] [address] Dr. Lazaro Sam MCH (RBC) [Entitic mass] 29.7 pg Normal 25.9-34.0 [facility] Comment on above: Performed By: #### C BC #### [facility] [address] [place] [address] Dr. Lazaro Sam MCHC (RBC) [Mass/Vol] 33.0 g/dL Normal 29.9-35.2 [facility] Comment on above: Performed By: #### C BC #### [facility] [address] [place] [address] Dr. Lazaro Sam MCV (RBC) [Entitic vol] 90.0 fL Normal 80.0-94.0 [facility] Comment on above: Performed By: #### C BC #### [facility] [address] [place] [address] Dr. Lazaro Sam MONO # 0.6 103/ul Normal 0.3-0.8 [facility] Comment on above: Performed By: #### C BC #### [facility] [address] [place] [address] Dr. Lazaro Sam Monocytes/100 WBC (Bld) 7.7 % Normal 1.7-12.0 [facility] Comment on above: Performed By: #### C BC #### [facility] [address] [place] [address] Dr. Lazaro Sam NEUT # 5.8 103/ul Normal 1.4-6.5 [facility] Comment on above: Performed By: #### C BC #### [facility] [address] [place] [address] Dr. Lazaro Sam Neutrophils/100 WBC (Bld) 72.2 % Normal 43.0-75.0 [facility] Comment on above: Performed By: #### C BC #### [facility] [address] [place] [address] Dr. Lazaro Sam Platelet mean volume (Bld) [Entitic vol] 9.1 fL Critically low 9.5-13.5 [facility] Comment on above: Performed By: #### C BC #### [facility] [address] [place] [address] Dr. Lazaro Sam PLT 162 103/ul Normal 150-450 [facility] Comment on above: Performed By: #### C BC #### [facility] [address] [place] [address] Dr. Lazaro Sam RBC 5.82 106/ul Normal 4.70-6.10 [facility] Comment on above: Performed By: #### C BC #### [facility] [address] [place] [address] Dr. Lazaro Sam WBC 8.1 103/ul Normal 4.0-11.0 [facility] Comment on above: Performed By: #### C BC #### [facility] [address] [place] [address] Dr. Lazaro Sam PROF 14(COMP METB)on 022 Albumin [Mass/Vol] 3.7 g/dL Normal 3.4-5.0 [facility] Comment on above: Performed By: #### C MP, TSH #### [facility] [address] [place] [address] Dr. Lazaro Sam Albumin/Globulin [Mass ratio] 0.9 {ratio} Normal [facility] Comment on above: Performed By: #### C MP, TSH #### [facility] [address] [place] [address] Dr. Lazaro Sam ALP [Catalytic activity/Vol] 72 U/L Normal 46-116 [facility] Comment on above: Performed By: #### C MP, TSH #### [facility] [address] [place] [address] Dr. Lazaro Sam ALT [Catalytic activity/Vol] 42 U/L Normal 16-63 [facility] Comment on above: Performed By: #### C MP, TSH #### [facility] [address] [place] [address] Dr. Lazaro Sam Anion gap [Moles/Vol] 13.4 mmol/L Normal [facility] Comment on above: Performed By: #### C MP, TSH #### [facility] [address] [place] [address] Dr. Lazaro Sam AST [Catalytic activity/Vol] 22 U/L Normal 15-37 [facility] Comment on above: Performed By: #### C MP, TSH #### [facility] [address] [place] [address] Dr. Lazaro Sam Bilirubin [Mass/Vol] 0.6 mg/dL Normal 0.2-1.0 [facility] Comment on above: Performed By: #### C MP, TSH #### [facility] [address] [place] [address] Dr. Lazaro Sam Calcium [Mass/Vol] 8.8 mg/dL Normal 8.5-10.1 [facility] Comment on above: Performed By: #### C MP, TSH #### [facility] [address] [place] [address] Dr. Lazaro Sam Chloride [Moles/Vol] 104 mmol/L Normal 98-107 [facility] Comment on above: Performed By: #### C MP, TSH #### [facility] [address] [place] [address] Dr. Lazaro Sam CO2 [Moles/Vol] 26.5 mmol/L Normal 21.0-32.0 [facility] Comment on above: Performed By: #### C MP, TSH #### [facility] [address] [place] [address] Dr. Lazaro Sam Creatinine [Mass/Vol] 1.30 mg/dL Normal 0.70-1.30 [facility] Comment on above: Performed By: #### C MP, TSH #### [facility] [address] [place] [address] Dr. Lazaro Sam EGFR-AF MARSHALLESE >60 Normal >=60 [facility] Comment on above: Performed By: #### C MP, TSH #### [facility] [address] [address] [address] Lazaro Sam EGFR-NON AF MARSHALLESE 54 mL/min/1.73m2 Critically low >=60 [facility] Comment on above: Performed By: #### C MP, TSH #### [facility] [address] [address] [address] Lazaro Sam Globulin (S) [Mass/Vol] 3.9 g/dL Normal [facility] Comment on above: Performed By: #### C MP, TSH #### [facility] [address] [address] [address] Lazaro Sam Glucose [Mass/Vol] 117 mg/dL Critically high 74-106 [facility] Comment on above: Performed By: #### C MP, TSH #### [facility] [address] [address] [address] Lazaro Sam Potassium [Moles/Vol] 3.9 mmol/L Normal 3.5-5.1 [facility] Comment on above: Performed By: #### C MP, TSH #### [facility] [address] [place] [address] Dr. Lazaro Sam Protein [Mass/Vol] 7.6 g/dL Normal 6.4-8.2 [facility] Comment on above: Performed By: #### C MP, TSH #### [facility] [address] [address] [address] Lazaro Sam Sodium [Moles/Vol] 140 mmol/L Normal 136-145 [facility] Comment on above: Performed By: #### C MP, TSH #### [facility] [address] [address] [address] Lazaro Sam Urea nitrogen [Mass/Vol] 23.0 mg/dL Critically high 7.0-18.0 [facility] Comment on above: Performed By: #### C MP, TSH #### [facility] [address] [place] [address] Dr. Lazaro Sam Urea nitrogen/Creatinin e [Mass ratio] 17.7 mg/mg Normal [facility] Comment on above: Performed By: #### C MP, TSH #### [facility] [address] [place] [address] Dr. Lazaro Sam T4on 09-08-2021 T4 [Mass/Vol] 7.70 ug/dL Normal 4.50-12.10 [facility] Comment on above: Performed By: #### T 4 #### [facility] [address] [place] [address] Dr. Lazaro Sam TSHon 09-08-2021 TSH 1.079 uIU/mL Normal 0.358-3.740 [facility] Comment on above: Performed By: #### C MP, TSH #### [facility] [address] [place] [address] Dr. Lazaro Sam TSH RANGE SEE BELOW Normal [facility] Comment on above: Result Comment: <0.3 4 UIU/ml HYPERTHYROID 0.34-5.60 UIU/ml EUTHYROID >5.60 UIU/ml HYPOTHYROID Performed By: #### C MP, TSH #### [facility] [address] [place] [address] Dr. Lazaro Sam TESTOSTERONE, FREE,DIRECT, T OTALon 09-03-2021 Free Testosterone(Direc t) 9.4 pg/mL Normal 6.6-18.1 [facility] Comment on above: Result Comment: Perf ormed at: BN Performed By: #### T ESTFRD #### [facility] [address] [place] [address] Dr. Lazaro Sam Testosterone [Mass/Vol] 328 ng/dL Normal 264-916 [facility] Comment on above: Result Comment: Adul t male reference interval is based on a population of healthy nonobese males (BMI <30) between 19 and 39 years old. martha Roman.al. JCEM 2017,102;5186-6286. PMID: [id number]. Performed at: CB Performed By: #### T ESTFRD #### [facility] [address] [place] [address] Dr. Lazaro Sam CNOVSPon 06-19-2018 CNOVSP Visit (SP) Office (HEMACL) -------- LAMONT LOWERY ([id number]) 1945 M Date Time Provider Department 06/19/18 [...] week. - CBC + DIFF (FOR REMOTE [facility] USE) Narciso Marinelli MD Referring Provider: RUPERTO BLAS [[id number]] Allergies As of Date: 06/19/2018 (No Known Allergies) Date Reviewed: 06/19/2018 Reviewed by: Melvi Valle - Fully Assessed Reason for Visit: polycythemia [Other] Cmt: follow up Primary Visit Diagnosis:Erythrocytosis [D75.1] Order(s):CBC + DIFF (FOR REMOTE [facility] USE) [SQRCBCDF] Order #: [id number] STANDING Disposition: Return in about 1 year [...] by NARCISO MARINELLI MD on 06/19/[address] [facility] PROGRESSon 06-19-2018 Protein mass conc HNO ID: [id number] Author: Narciso Marinelli Service: ? Author Type: [...] week. - CBC + DIFF (FOR REMOTE [facility] USE) Narciso Marinelli MD Normal [facility] Remote CBCDIF (for [facility] use o nly)on 06-19-2018 Abs Baso <0.03 Normal 0.00-0.10 [facility] Abs [place] 1.02 k/uL High 0.00-0.86 [facility] Abs Neut 5.04 k/uL Normal 1.45-7.50 [facility] Basophils/100 WBC (Bld) 0.2 % Normal [facility] Eosinophils #/vol (Bld) 0.40 10*3/uL Normal 0.00-0.45 [facility] Eosinophils/100 WBC (Bld) 4.5 % Normal [facility] Erythrocyte distribution width Ratio (RBC) 13.3 % Normal 11.5-15.0 [facility] Hematocrit Volume Fraction (Bld) 48.8 % Normal 39.0-51.0 [facility] Hemoglobin mass conc (Bld) 16.8 g/dL Normal 13.0-17.0 [facility] Lymphocytes #/vol (Bld) 2.43 10*3/uL Normal 1.00-4.00 [facility] Lymphocytes/100 WBC (Bld) 27.3 % Normal [facility] MCH Entitic mass (RBC) 30.5 pG Normal 26.0-34.0 [facility] MCHC mass conc (RBC) 34.4 g/dL Normal 30.5-36.0 [facility] MCV Entitic volume (RBC) 88.6 fL Normal 80.0-100.0 [facility] Monocytes/100 WBC (Bld) 11.4 % Normal [facility] Neutrophils/100 WBC (Bld) 56.6 % Normal [facility] Platelet mean volume Entitic volume (Bld) 9.6 fL Normal 9.0-12.7 [facility] Platelets #/vol (Bld) 152 10*3/uL Normal 150-400 [facility] RBC #/vol (Bld) 5.51 10*6/uL Normal 4.20-6.00 [facility] WBC #/vol (Bld) 8.91 10*3/uL Normal 3.70-11.00 [facility] BCR-ABL Qualitativeon 2018 BCR-ABL Qualitative (NOTE) Normal [facility] Comment on above: Result Comment: Plea se refer to [facility] Surgical Pathology report, Performed By: #### C ALR, BCRQL #### [id number] [place] [address] CALR Exon 9 Mutationon 05-29 CALR Result/Interp Duplicate request Normal [facility] Comment on above: Result Comment: Acco unt Credited SEE MPNP. DMCKNIGHT 05 30 2018 Performed By: #### C ALR, BCRQL #### [address] [address] CALR Reviewed by Duplicate request Normal [facility] Comment on above: Result Comment: Acco unt Credited SEE MPNP. DMCKNIGHT 05 30 2018 Performed By: #### C ALR, BCRQL #### [address] [address] CALR Specimen Type Duplicate request Normal [facility] Comment on above: Result Comment: Acco unt Credited SEE MPNP. DMCK2018 Performed By: #### C ALR, BCRQL #### [address] [address] CNCOon 05-29-2018 CNCO Letter Text Dear Lamont Lowery: How to activate your [facility] Account 1. Visit the [employer]ovo Signup page at [email or web address] 2. Identify yourself using your one-time use activation code: [email or web address] 3. Follow the on-screen prompts to choose [...] Create your login and password, choose a [employer] ID and password that will be easy for you to use, but impossible for anyone else to guess. Pick a security question that will assist you in the event you forget your password the next time you log-on. If you have difficulty activating your account, please call our [employer] helpline at [phone] or toll free at . We hope you enjoy using [employer]! Kindest Regards, [facility] Dovo Team Normal [facility] CNOVSPon 05-29-2018 CNOVSP Visit (SP) Office (HEMACL) -------- LAMONT LOWERY ([id number]) 1945 M Date Time Provider Department 05/29/18 [...] viscosity is hematocrit with the risk of KS, CVA, Budd Chiari, etc all increased proportionately [...] Narciso Marinelli MD Referring Provider: MURALI SCHRADER [[id number]] Allergies As of Date: 05/29/2018 (No Known Allergies) Date Reviewed: 05/29/2018 Reviewed by: Melvi Valle - Fully Assessed Reason for Visit: high HGB [Other] Cmt: new patient consultation ref. Dr. Schrader Primary Visit Diagnosis:Polycythemia [D75.1] Other Visit Diagnosis:Erythrocytosis [D75.1] Order(s):JAK2 V617F MUTATION BLOOD [SQJAK2] Order #: [id number] FUTURE BCR-ABL QUALITATIVE MULTIPLEX RT-PCR [SQBCRQL] Order #: [id number] FUTURE CALR EXON 9 MUTATION ANALYSIS BLOOD [SQCALR] Order #: [id number] FUTURE MPL MUTATION ANALYSIS BLOOD [SQMPL] Order #: [id number] FUTURE ABS GRAN CT + CBC (FOR REMOTE [facility] USE) [SQRAGCBC] Order #: [id number] FUTURE ERYTHROPOIETIN/EPO [SQEPO] Order #: [id number] FUTURE HEPATIC FUNCTION PNL [SQHFP] Order #: [id number] FUTURE TESTOSTERONE TOTAL [SQTESTO] Order #: [id number] FUTURE Disposition: Return in about 3 weeks [...] by NARCISO MARINELLI MD on 05/29/[address] [facility] EPOon 05-29-2018 EPO 8.8 mIU/mL Normal 2.6-18.5 [facility] Comment on above: Result Comment: Test analyzed by the Xiang DxI method. Performed By: #### J AK2, EPO, HFP #### [facility] [employer] [address], [place] [address] Hepatic Functn Panelon 05-29 Albumin mass conc 4.6 g/dL Normal 3.9-4.9 [facility] Comment on above: Performed By: #### J AK2, EPO, HFP #### [facility] [employer] [address] [place] [place], [place] [address] ALP enzyme act/vol 60 U/L Normal 38-113 [facility] Comment on above: Performed By: #### J AK2, EPO, HFP #### [facility] [employer] [address] [place] [place], [place] [address] ALT enzyme act/vol 36 U/L Normal 10-54 [facility] Comment on above: Performed By: #### [place] AK2, EPO, HFP #### [id number] [place] [address] AST enzyme act/vol 29 U/L Normal 14-40 [facility] Comment on above: Performed By: #### Lucille AK2, EPO, HFP #### [address] [address] Bilirubin mass conc 0.5 mg/dL Normal 0.2-1.3 [facility] Comment on above: Performed By: #### [place] AK2, EPO, HFP #### [address] [place] [address] Bilirubin,Conjugat ed <0.2 Normal <0.2 [facility] Comment on above: Performed By: #### [place]ille AK2, EPO, HFP #### [address] [place] [address] Protein mass conc 7.6 g/dL Normal 6.3-8.0 [facility] Comment on above: Performed By: #### [place]ille AK2, EPO, HFP #### [address] [place] [address] JAK2 V617F Mutationon 2018 JAK2 V617F Interp Duplicate request Normal [facility] Comment on above: Result Comment: Acco unt Credited SEE MPNP. DMCK2018 Performed By: #### [place]ille AK2, EPO, HFP #### [id number] [place] [address] JAK2 V617F Spec Type Duplicate request Normal [facility] Comment on above: Result Comment: Acco unt Credited SEE MPNP. DMCK2018 Performed By: #### [place]ille AK2, EPO, HFP #### [id number] [place] [address] Molecular Path Rev Duplicate request Normal [facility] Comment on above: Result Comment: Acco unt Credited SEE MPNP. DMCKNIGHT 3 2018 Performed By: #### J AK2, EPO, HFP #### [facility] [employer] [address] [place], [place] [address] MPL Mutationon 05-29-2018 MPL Mutation Interp Duplicate request Normal [facility] Comment on above: Result Comment: Acco unt Credited SEE MPNP. DMCKNIGHT 05 30 2018 Performed By: #### M PL #### [facility] [address], [place] [id number] Myeloprolif Neopl Pnl Bloodo n 05-29-2018 Myelo Neopl Pnl Bld (NOTE) Normal [facility] Comment on above: Result Comment: Shannan se refer to [facility] Surgical Pathology report, . Performed By: #### M PNP ####[facility] [address] [place], [place] [phone] PROGRESSon 05-29-2018 Protein mass conc HNO ID: [id number] Author: Narciso Marinelli Service: (none) Author Type: [...] viscosity is hematocrit with the risk of KS, CVA, Budd Chiari, etc all increased proportionately [...] - TESTOSTERONE TOTAL Narciso Marinelli MD Normal [facility] Remote Abs Gran + CBC (for [facility] use only)on 05-29-2018 Absol Gran Count 3.85 k/uL Normal 1.45-7.50 [facility] Erythrocyte distribution width Ratio (RBC) 13.6 % Normal 11.5-15.0 [facility] Hematocrit Volume Fraction (Bld) 49.6 % Normal 39.0-51.0 [facility] Hemoglobin mass conc (Bld) 17.1 g/dL High 13.0-17.0 [facility] MCH Entitic mass (RBC) 30.5 pG Normal 26.0-34.0 [facility] MCHC mass conc (RBC) 34.5 g/dL Normal 30.5-36.0 [facility] MCV Entitic volume (RBC) 88.6 fL Normal 80.0-100.0 [facility] Platelet mean volume Entitic volume (Bld) 9.9 fL Normal 9.0-12.7 [facility] Platelets #/vol (Bld) 146 10*3/uL Low 150-400 [facility] RBC #/vol (Bld) 5.60 10*6/uL Normal 4.20-6.00 [facility] WBC #/vol (Bld) 6.86 10*3/uL Normal 3.70-11.00 [facility] SURGICAL PATHOLOGYon 02-28-2 019 SURGICAL PATHOLOGY PROCEDURE REPORT Specimen originated from [facility] Specimen #: [id number] Submitting Physician: NARCISO MARINELLI MD SPECIMEN SUBMITTED [...] this sample, and cDNA prepared by reverse textile technical officer. Multiplex RT-PCR studies were performed using fluorescently [...] developed and its performance characteristics determined by [facility]'s [facility] [place] ([facility] It has not been cleared or approved by the FDA. [facility] is regulated under CLIA as qualified [...] sequencing was performed on the Illumina instrument ([place], [place]). A customized bioinformatic pipeline was used to align the sequencing reads to the reference human genome (GRCh37/hg19). Benign common polymorphisms are not reported. Limitations: Sequence changes outside the analyzed regions, including intronic, noncoding, and splice-site variants, will not be identified by this test. The lower limit of detection of this assay is approximately 1% allele proportion for the JAK2 [id number] single nucleotide variant and approximately 5% allele [...] developed and its performance characteristics determined by [facility]'s [facility] [place] ([facility]). It has not been cleared or approved by the FDA. [facility] is regulated under CLIA as qualified to perform high-complexity testing. This test is used for clinical purposes. It should not be regarded as investigational or for research. As Reviewed by: Quin Hill M.D. Ph.D. HENRIK/ap [id number] References: Temi HESTER, Syd A, Joshua R, Payal J, Ariella MJ, Johanna Rashid MM, et al. The 2016 revision to the World Health Organization (WHO) classification of myeloid neoplasms and acute leukemia. Blood 2016;127: 2391-405. NCCN Guidelines, Myeloproliferative Neoplasms, Version 2.2018. Leobardo Posey. Genomics of Myeloproliferative Neoplasms. J Clin Oncol. 2017 May 20;35(9):947-954. Procedure Pathologist: Quin Hill M.D. Electronic Signature CLINICAL DATA None provided. Date of Report: Date of Procedure: 05/29/2018 Date of Receipt: 05/30/2018 Submitted: NARCISO MARINELLI MD Location: [facility] Diagnostic interpretation performed at [facility], [address] [place] [address] [facility] Testosteroneon 05-29-2018 Testosterone mass conc 249 ng/dL Normal 193-824 [facility] Comment on above: Result Comment: A te stosterone level in the 193-320 ng/dL range with associated clinical symptoms is considered low and may indicate hypogonadism (from NEJM 2009 363:123-135). Results >320 ng/dL are considered normal. Performed By: #### T ESTO ####[facility] [address] [place], [place] [phone] Vital Signs Date Time Vital Sign Value Performing Clinician Facility 07-01-2024 10:45-0400 Body height 167.6 cm Eda Junior MD Work Phone: [facility] 07-01-2024 10:45-0400 Body mass index (BMI) [Ratio] 32.28 kg/m2 Eda Junior MD Work Phone: [facility] 07-01-2024 10:45-0400 Body weight 90.72 kg Eda Junior MD Work Phone: [facility] 07-01-2024 10:45-0400 Diastolic blood pressure 70 mm[Hg] Eda Junior MD Work Phone: [facility] 07-01-2024 10:45-0400 Heart rate 68 /min Eda Junior MD Work Phone: [facility] 07-01-2024 10:45-0400 Systolic blood pressure 135 mm[Hg] Eda Junior MD Work Phone: [facility] 05-09-2024 09:280500 Body height 172.72 cm [facility] 05-09-2024 09:280500 Body mass index (BMI) [Ratio] 30.6 kg/m2 [facility] 05-09-2024 09:280500 Body temperature 98.4 [degF] [facility] 05-09-2024 09:280500 Body weight 91.34 kg [facility] 05-09-2024 09:[id number] Diastolic blood pressure 86 mm[Hg] [facility] 05-09-2024 09:280500 Heart rate 100 /min [facility] 05-09-2024 09:280500 Respiratory rate 18 /min [facility] 05-09-2024 09:280500 SaO2% (BldA) [Mass fraction] 94 % [facility] 05-09-2024 09:280500 Systolic blood pressure 141 mm[Hg] [facility] 01-09-2024 13:47-0400 Body height 172.7 cm Josh Hearn [employer] Work Phone: [facility] 01-09-2024 13:47-0400 Body mass index (BMI) [Ratio] 31.17 kg/m2 Josh Hearn [employer] Work Phone: [facility] 01-09-2024 13:47-0400 Body temperature 96.21 [degF] Josh Hearn [employer] Work Phone: [facility] 01-09-2024 13:47-0400 Body weight 92.99 kg Josh Hearn [employer] Work Phone: [facility] 01-09-2024 13:47-0400 Diastolic blood pressure 76 mm[Hg] Josh Hearn [employer] Work Phone: [facility] 01-09-2024 13:47-0400 Heart rate 83 /min Josh Hearn [employer] Work Phone: [facility] 01-09-2024 13:47-0400 Respiratory rate 16 /min Josh Campbellpatrick [employer] Work Phone: [facility] 01-09-2024 13:47-0400 SaO2% (BldA) [Mass fraction] 98 % Josh Hearn [employer] Work Phone: [facility] 01-09-2024 13:47-0400 Systolic blood pressure 138 mm[Hg] Josh Hearn [employer] Work Phone: [facility] 12-28-2023 11:16-0400 Body height 172.72 cm [facility] 12-28-2023 11:16-0400 Body mass index (BMI) [Ratio] 30.1 kg/m2 [facility] 12-28-2023 11:16-0400 Body temperature 98 [degF] [facility] 12-28-2023 11:16-0400 Body weight 89.92 kg [facility] 12-28-2023 11:16-0400 Diastolic blood pressure 92 mm[Hg] [facility] 12-28-2023 11:16-0400 Heart rate 102 /min [facility] 12-28-2023 11:16-0400 Respiratory rate 18 /min [facility] 12-28-2023 11:16-0400 SaO2% (BldA) [Mass fraction] 95 % [facility] 12-28-2023 11:16-0400 Systolic blood pressure 153 mm[Hg] [facility] 12-12-2023 14:42-0400 Body height 172.7 cm Josh Campbellpatrick [employer] Work Phone: [facility] 12-12-2023 14:42-0400 Body mass index (BMI) [Ratio] 30.11 kg/m2 Josh Hearn [employer] Work Phone: [facility] 12-12-2023 14:42-0400 Body temperature 97.59 [degF] Josh Hearn [employer] Work Phone: [facility] 12-12-2023 14:42-0400 Body weight 89.81 kg Josh Campbellpatrick [employer] Work Phone: [facility] 12-12-2023 14:42-0400 Diastolic blood pressure 90 mm[Hg] Josh Hearn [employer] Work Phone: [facility] 12-12-2023 14:42-0400 Heart rate 100 /min Josh Hearn [employer] Work Phone: [facility] Comment on above: 94% O2 12-12-2023 14:42-0400 Systolic blood pressure 160 mm[Hg] Josh Hearn [employer] Work Phone: [facility] 11-01-2023 14:44-0400 Body height 172.72 cm [facility] 11-01-2023 14:44-0400 Body mass index (BMI) [Ratio] 30.4 kg/m2 [facility] 11-01-2023 14:44-0400 Body temperature 99.1 [degF] [facility] 11-01-2023 14:44-0400 Body weight 90.94 kg [facility] 11-01-2023 14:44-0400 Diastolic blood pressure 98 mm[Hg] [facility] 11-01-2023 14:44-0400 Heart rate 80 /min [facility] 11-01-2023 14:44-0400 Respiratory rate 18 /min [facility] 11-01-2023 14:44-0400 SaO2% (BldA) [Mass fraction] 95 % [facility] 11-01-2023 14:44-0400 Systolic blood pressure 169 mm[Hg] [facility] 10-15-2023 12:58-0400 Blood Pressure Location EWA VIERA [facility] 10-15-2023 12:58-0400 Diastolic blood pressure 90 mm[Hg] EWA [facility] 10-15-2023 12:58-0400 Heart rate 81 /min EWA [facility] 10-15-2023 12:58-0400 Respiratory rate 16 /min EWA [facility] 10-15-2023 12:58-0400 Systolic blood pressure 162 mm[Hg] EWA VI[facility] 03-19-2023 12:05-0500 Body height 172.72 cm Myrna Isbell Other [employer] Other 03-19-2023 12:05-0500 Body mass index (BMI) [Ratio] 30.62 kg/m2 Myrna Isbell Other [employer] Other 03-19-2023 12:05-0500 Body temperature 98.9 [degF] Myrna Isbell Other [employer] Other 03-19-2023 12:05-0500 Body weight 91.36 kg Myrna Isbell Other [employer] Other 03-19-2023 12:05-0500 Diastolic blood pressure 104 mm[Hg] Myrna Isbell Other [employer] Other 03-19-2023 12:05-0500 Respiratory rate 18 /min Myrna Isbell Other [employer] Other 03-19-2023 12:05-0500 SaO2% (BldA) [Mass fraction] 96 % Myrna Isbell Other [employer] Other 03-19-2023 12:05-0500 Systolic blood pressure 178 mm[Hg] Myrna Isbell Other [employer] Other 03-14-2023 13:10-0500 Body height 172.72 cm Magnolia Igor Other [employer] Other 03-14-2023 13:10-0500 Body mass index (BMI) [Ratio] 30.41 kg/m2 Magnolia Igor Other [employer] Other 03-14-2023 13:10-0500 Body temperature 100.1 [degF] Magnolia Igor Other [employer] Other 03-14-2023 13:10-0500 Body weight 90.72 kg Magnolia Igor Other [employer] Other 03-14-2023 13:10-0500 Diastolic blood pressure 87 mm[Hg] Magnolia Igor Other [employer] Other 03-14-2023 13:10-0500 Respiratory rate 18 /min Magnolia Igor Other [employer] Other 03-14-2023 13:10-0500 SaO2% (BldA) [Mass fraction] 96 % Magnolia Igor Other [employer] Other 03-14-2023 13:10-0500 Systolic blood pressure 190 mm[Hg] Magnolia Igor Other [employer] Other 10-17-2022 13:35-0400 Blood Pressure Location EWA VIERA [facility] 10-17-2022 13:35-0400 Diastolic blood pressure 112 mm[Hg] EWA MAXIMILIANO [facility] 10-17-2022 13:35-0400 Heart rate 81 /min EWA VIERA [facility] 10-17-2022 13:35-0400 Systolic blood pressure 172 mm[Hg] EWA VIERA [facility] 04-16-2022 14:37-0500 Blood Pressure Location [employer] [facility] 10-16-2021 14:30-0400 Blood Pressure Location [employer] [facility] 10-16-2021 14:30-0400 Diastolic blood pressure 85 mm[Hg] Murali RICE [facility] 10-16-2021 14:30-0400 Heart rate 67 /min Murali RICE [facility] 10-16-2021 14:30-0400 Respiratory rate 16 /min Murali RICE [facility] 10-16-2021 14:30-0400 Systolic blood pressure 170 mm[Hg] Murali RICE [facility] Encounters Encounter Date Encounter Type Care Provider Facility Start: 10-12-2024 ambulatory EWA Bro ty:BAILEY GordonStefania Start: 07-01-2024 End: 07-01-2024 Bamboo flowsheet Eda Junior MD Work Phone: [facility] Start: 07-01-2024 End: 07-01-2024 Bamboo flowscharan Junior MD Work Phone: [facility] Start: 07-01-2024 End: 07-01-2024 Office outpatient new 45 minutes Eda Junior MD Work Phone: [facility] Comment on above: LINSEY (obstructive sle ep apnea) (Primary Dx); LPRD (laryngopharyngeal reflux disease) Start: 07-01-2024 End: 07-01-2024 ambulatory EDA JUNIOR Not Available Start: 06-10-2024 End: 06-10-2024 ambulatory FREDERICK GONZALEZ Facility:[facility] Start: 05-14-2024 ambulatory DO FREDERICK GONZALEZ Faci lity:[facility] Start: 05-09-2024 End: 05-09-2024 ambulatory [facility] Work Phone: Start: 05-09-2024 End: 05-09-2024 Patient encounter procedure [facility] Work Phone: Start: 03-09-2024 End: 03-09-2024 Bamboo flowsheet Brii Pinzon Apling [employer] Work Phone: [facility] Start: 03-09-2024 End: 03-09-2024 Bamboo flowsheet Brii B Apling [employer] Work Phone: [facility] Start: 03-09-2024 End: 03-09-2024 Office outpatient visit 15 minutes Brii Pinzon Apling [employer] Work Phone: [facility] Comment on above: Left shoulder pain, unspecified chronicity (Primary Dx); Glenohumeral arthritis, left; Arthritis of left acromioclavicular joint; Impingement of left shoulder Start: 03-09-2024 End: 03-09-2024 ambulatory BRII Pinzon APLING Not Available Start: 03-05-2024 End: 03-05-2024 Refill Josh Ontiverosk [employer] Work Phone: [facility] Comment on above: Seasonal allergies Start: 02-17-2024 End: 02-17-2024 Bamboo flowsheet Brii Pinzon Trishrocco [employer] Work Phone: [facility] Start: 02-17-2024 End: 02-17-2024 Bamboo flowsheet Brii Sari Oconnor [employer] Work Phone: [facility] Start: 02-17-2024 End: 02-17-2024 Office outpatient new 45 minutes Brii Sari Oconnor [employer] Work Phone: [facility] Comment on above: Left shoulder pain, unspecified chronicity (Primary Dx); Glenohumeral arthritis, left; Arthritis of left acromioclavicular joint; Impingement of left shoulder Start: 02-17-2024 End: 02-17-2024 ambulatory BRII OCONNOR Not Available Start: 01-16-2024 End: 01-16-2024 ambulatory DO [facility] Facility:[facility] Start: 01-09-2024 End: 01-09-2024 Bamboo flowsheet Josh Ontiverosk [employer] Work Phone: [facility] Start: 01-09-2024 End: 01-09-2024 Bamboo flowsheet Josh Escamillatrick [employer] Work Phone: [facility] Start: 01-09-2024 End: 01-09-2024 Office outpatient visit 15 minutes Josh Ontiverosk [employer] Work Phone: [facility] Comment on above: Gordon's palsy (Primar y Dx) Start: 01-09-2024 End: 01-09-2024 ambulatory JOSH ONTIVEROSK Not Available Start: 12-31-2023 End: 01-03-2024 Emergency department patient visit [facility] Start: 12-28-2023 End: 12-28-2023 ambulatory [facility] Work Phone: Start: 12-28-2023 End: 12-28-2023 Patient encounter procedure [facility] Work Phone: Start: 12-21-2023 End: 12-21-2023 Orders Only Josh Hearn [employer] Work Phone: [facility] Comment on above: Encounter for wellne ss examination in adult (Primary Dx) Start: 12-21-2023 End: 12-21-2023 Patient encounter status Josh Hearn [employer] Work Phone: [facility] Work Phone: Start: 12-12-2023 End: 12-12-2023 Initial preventive medicine new patient 67yrs&> Josh Hearn [employer] Work Phone: [facility] Comment on above: Primary hypertension (CMS/HCC) (Primary Dx); Encounter for wellness examination in adult; Seasonal allergies; Seasonal allergic rhinitis, unspecified trigger; Screening for hyperlipidemia; Screening for diabetes mellitus Start: 12-12-2023 End: 12-12-2023 ambulatory JOSH HEARN Not Available Start: 12-12-2023 End: 12-12-2023 Bamboo flowsheet Josh Hearn [employer] Work Phone: [facility] Start: 12-12-2023 End: 12-12-2023 Bamboo flowsheet Josh Ontiverosk [employer] Work Phone: [facility] Start: 12-12-2023 End: 12-12-2023 Patient encounter status Josh Hearn [employer] Work Phone: [facility] Start: 11-01-2023 End: 11-01-2023 ambulatory [facility] Work Phone: Start: 11-01-2023 End: 11-01-2023 Patient encounter procedure [facility] Work Phone: Start: 10-15-2023 End: 10-15-2023 ambulatory EWA CARRRY Facility:[facility] Start: 10-15-2023 End: 10-15-2023 Patient encounter procedure EWA E MAXIMILIANO [facility] Start: 03-19-2023 End: 03-19-2023 ambulatory Myrna Isbell Other [employer] Other Start: 03-19-2023 Office outpatient vi sit 15 minutes Myrna Isbell [facility] Start: 03-15-2023 End: 03-15-2023 ambulatory Magnolia Igor Other [employer] Other Start: 03-15-2023 Telephone encounter Magnolia Igor [facility] Start: 03-14-2023 End: 03-14-2023 ambulatory Magnolia Igor Other [employer] Other Start: 03-14-2023 Office outpatient vi sit 15 minutes Magnolia Igor [facility] Start: 10-17-2022 End: 10-17-2022 Patient encounter procedure EWA E MAXIMILIANO [facility] Start: 05-24-2022 End: 05-25-[address] FREDERICK GONZALEZ Facility:[facility] Start: 04-16-2022 End: 04-16-2022 Patient encounter procedure Murali SCHRADER [facility] Start: 01-26-2022 End: 01-27-[address] MURALI SCHRADER Facility:[facility] Start: 10-16-2021 End: 10-16-2021 Patient encounter procedure Murali SCHRADER [facility] Start: 09-08-2021 End: 09-09-[address] FREDERICK GONZALEZ Facility:[facility] Start: 09-01-2021 End: 09-02-[address] FREDERICK GONZALEZ Facility:[facility] Start: 06-19-2018 End: 06-20-2018 [facility] Start: 05-29-2018 End: 05-30-2018 Patient encounter procedure [facility]apien [facility] Procedures Date Procedure Procedure Detail Performing Clinician Start: 03-09-2024 Arthrocentesis aspir &/inj major jt/bursa w/o us Brii Pinzon Apling [employer] Work Phone: Start: 02-17-2024 Arthrocentesis aspir &/inj major jt/bursa w/o us Brii Pinzon Apling [employer] Work Phone: Start: 02-17-2024 Radex shoulder compl ete minimum 2 views Brii Pinzon Aplrocco [employer] Work Phone: Start: 09-01-[address] ROBIN GONZALEZ Comment on above: Performed By: #### P SAD #### [facility] [address] [place] [address] Dr. Lazaro Sam Appendectomy Murali SCHRADER Decompression of med trev nerve Murali SCHRADER Plan of Treatment Date Care Activity Detail Author Start: 01-08-2025 Pneumococcal Vaccine: 65+ Years (1 of 1 - PCV) Pneumococcal Vaccine: 65+ Years (1 of 1 - PCV) [facility] Comment on above: Postponed from 09/04/2012 (Patient Refus ed) Start: 12-11-2024 Medicare Annual Wellness (AWV) Medicare Annual Wellness (AWV) [facility] Start: 11-30-2024 Influenza vaccination Influenza Vaccine (Season Ended) [facility] Start: 07-01-2024 End: 07-01-2024 Patient encounter procedure 07/01/2024 10:50 AM EDT Office Visit [facility] [address] [address] Eda Junior MD [address] [place] [address] Arrived [facility] Comment on above: Arrived Start: 03-12-2024 End: 03-12-2024 Patient encounter procedure 03/12/2024 3:30 PM EST Office Visit [facility] [address] [place] [phone] Josh Hearn NP [address] [place] [phone] [facility] Start: 03-09-2024 End: 03-09-2024 Patient encounter procedure [facility] Comment on above: Left shoulder pain, unspecified chronici ty (Primary Dx); Glenohumeral arthritis, left; Arthritis of left acromioclavicular joint; Impingement of left shoulder Start: 03-05-2024 Influenza vaccination Influenza Vaccine (#1) [facility] Comment on above: Postponed from 12/01/2023 (Patient Refus ed) Start: 01-09-2024 End: 01-09-2024 Patient encounter procedure 01/09/2024 2:00 PM EDT Office Visit [facility] [address] [place] [address] Josh Hearn NP [address] [place] [phone] Arrived [facility] Comment on above: Arrived Start: 12-21-2023 End: 12-20-2024 25-hydroxyvitamin D3 [Mass/volume] in Serum or Plasma Vitamin D 25 hydroxy Lab Routine Encounter for wellness examination in adult Expected: 12/21/2023 (Approximate), Expires: 12/20/2024 [facility] Work Phone: Comment on above: Expected: 12/21/2023 (Approximate), Expi res: 12/20/2024 Start: 12-13-2023 End: 12-12-2024 CBC W Auto Differential panel - Blood CBC and differential Lab Routine Primary hypertension (CMS/HCC) Expected: 12/13/2023 (Approximate), Expires: 12/12/2024 [facility] Comment on above: Expected: 12/13/2023 (Approximate), Expi res: 12/12/2024 Start: 12-13-2023 End: 12-12-2024 Comprehensive metabolic 2000 panel - Serum or Plasma Comprehensive metabolic panel Lab Routine Primary hypertension ([facility]/HCC) Screening for diabetes mellitus Expected: 12/13/2023 (Approximate), Expires: 12/12/2024 [facility] Comment on above: Expected: 12/13/2023 (Approximate), Expi res: 12/12/2024 Start: 12-13-2023 End: 12-12-2024 Hemoglobin A1c/Hemoglobin.total in Blood Hemoglobin A1c Lab Routine Screening for diabetes mellitus Expected: 12/13/2023 (Approximate), Expires: 12/12/2024 [facility] Comment on above: Expected: 12/13/2023 (Approximate), Expi res: 12/12/2024 Start: 12-13-2023 End: 12-12-2024 Lipid 1996 panel - Serum or Plasma Lipid panel Lab Routine Primary hypertension ([facility]/HCC) Screening for hyperlipidemia Expected: 12/13/2023 (Approximate), Expires: 12/12/2024 [facility] Comment on above: Expected: 12/13/2023 (Approximate), Expi res: 12/12/2024 Start: 12-13-2023 End: 12-12-2024 TSH W/REFLEX TO FT4 TSH W/REFLEX TO FT4 Lab Routine Primary hypertension (CMS/HCC) Expected: 12/13/2023 (Approximate), Expires: 12/12/2024 [facility] Work Phone: Comment on above: Expected: 12/13/2023 (Approximate), Expi res: 12/12/2024 Start: 12-12-2023 End: 12-12-2023 Patient encounter procedure 12/12/2023 3:00 PM EDT Office Visit [facility] [address] [place] [phone] Josh Hearn, LINA [address] [facility] [place] [address] Arrived [facility] Comment on above: Arrived Start: 12-01-2023 Influenza vaccination Influenza Vaccine (#1) [facility] Start: 09-04-2012 Pneumococcal Vaccine: 65+ Years (1 of 1 - PCV) Pneumococcal Vaccine: 65+ Years (1 of 1 - PCV) [facility] Start: 1945 Medicare Annual Wellness (AWV) Medicare Annual Wellness (AWV) [facility] Immunizations Immunization Date Immunization Notes Care Provider Fa cility 2023 ABRYSVO - Respirator y syncytial virus (RSV), vaccine, bivalent, protein subunit RSV prefusion F, diluent reconstituted, 0.5 mL, PF Josh Hearn [employer] Work Phone: [facility] 03-16-2021 SARS-CoV-2 (COVID-19 ) mRNA BNT-162b2 vax [employer] [facility] Comment on above: Result Comment: 2022: [id number] 03-01-2021 SARS-CoV-2 (COVID-19 ) mRNA BNT-162b2 vax [employer] [facility] 06-29-2020 SARS-CoV-2 (COVID-19 ) mRNA BNT-162b2 vax [employer] [facility] 06-24-2020 SARS-CoV-2 (COVID-19 ) mRNA-1273 vaccine [employer] [facility] 06-08-2020 SARS-CoV-2 (COVID-19 ) mRNA BNT-162b2 vax [employer] [facility] 06-03-2020 SARS-CoV-2 (COVID-19 ) [id number] vaccine Murali SCHRADER [facility] 04-10-2018 tetanus toxoid, reduced diphtheria toxoid, and acellular pertussis vaccine, adsorbed Murali SCHRADER [facility] 10-09-2012 pneumococcal vaccine , unspecified formulation Josh Hearn [employer] Work Phone: [facility] Payers Date Payer Category Payer Private Health Insurance [id number] 2023 Unknown [facility] [id number] 2023-Present [address] [place] [address] [id number] 2023 Unknown [id number] 2019 Unknown [id number] 2018 Medicare [id number] 2012 Medicare [id number] 1959 Medicare [id number] 1959 Unknown [id number] 1947 Unknown [id number] [id number] .593 1947 Unknown [id number] 2.16.840.1.535001.3.579.2 .593 1947 Unknown [id number] 2.16.840.1.338487.3.579.2 .593 1947 Unknown [id number] 2.16.840.1.162144.3.579.2 .593 1947 Unknown [id number] 2.16.840.1.605774.3.579.2 .727 1947 Unknown [id number] 2.16.840.1.670519.3.579.2 .727 1947 Unknown [id number] 2.16.840.1.444199.3.579.2 .718 1947 Unknown [id number] 2.16.840.1.098328.3.579.2 .718 1947 Unknown [id number] 2.16.840.1.051531.3.579.2 .718 1947 Unknown [id number] 2.16.840.1.708339.3.579.2 .1259 1947 Unknown [id number] 2.16.840.1.593208.3.579.2 .1259 1947 Unknown [id number] 2.16.840.1.571301.3.579.2 .1259 1947 Unknown [id number] 2.16.840.1.139474.3.579.2 .1259 1947 Unknown [id number] 2.16.840.1.331164.3.579.2 .125 1947 Unknown [id number] 2.16.840.1.562157.3.579.2 .1259 Unknown [id number] [id number] Social History Date Type Detail Facility Start: 04-17-2021 End: 12-12-2023 Tobacco smoking status Never smoked tobacco (finding) [facility] Tobacco smoking status Never [facility] Start: 12-12-2023 End: 03-09-2024 Sex Assigned At Male [facility] Start: 1945 Sex Assigned At Male [facility] Start: 12-12-2023 Tobacco use and exposure Smokeless tobacco non-user [facility] Start: 12-12-2023 End: 07-01-2024 Alcoholic beverage intake Lifetime non-drinker (finding) [facility] Start: 12-12-2023 End: 03-09-2024 History of Social function [facility] Start: 1945 Sex assigned at Not on file [facility] Tobacco smoking status NHIS Tobacco smoking consumption unknown [facility] Start: 05-09-2024 Sex Male (finding) [facility] NEGATED: Highlighted rowStart: NINF History of tobacco use Passive smoker [facility] Functional Status Date Assessment Result Facility 10-15-2023 Functional Status N/A [facility] 10-17-2022 Functional Status N/A [facility] 04-16-2022 Functional Status N/A [facility] 10-16-2021 Functional Status N/A [facility] Clinical Notes 10-16-2021 to 07-01-2024 Eda Junior MD - 07/01/2024 10:50 AM Gume Oconnor NP - 03/09/2024 10:00 AM Andry Oconnor NP - 02/17/2024 11:15 AM Samuel Hearn NP - 01/15/2024 8:40 AM EDT Note Date & Type Note Facility 07-01-2024 History of Present illness Narrative Subjective Patient ID: Lamont Lowery is a 78 y.o. male who presents for Sinusitis Pt reports he has occas choking episodes when he eats and at night awakens with choking forever . Wears a CPAP machine at night. Pressure recently decreased from 9 to 8cm H2O. Denies heartburn. Takes 1/2 OTC omeprazole in the morning. Review of Systems All other systems reviewed and are negative. 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 Erythrocytosis 05/29/2018 Male hypogonadism 12/12/2023 Urinary hesitancy 12/12/2023 Encounter to establish care 12/12/2023 Encounter for wellness examination in adult 12/12/2023 Seasonal allergic rhinitis 12/12/2023 Primary hypertension (CMS/HCC) 12/13/2023 Screening for hyperlipidemia 12/13/2023 Screening for diabetes mellitus 12/13/2023 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 Chronic renal failure 07/01/2024 GERD without esophagitis 07/01/2024 Glaucoma 07/01/2024 Insomnia 07/01/2024 Osteoarthritis 07/01/2024 Sinusitis 07/01/2024 LINSEY on CPAP 07/01/2024 Resolved Ambulatory Problems Diagnosis Date Noted No Resolved Ambulatory Problems Past Medical History: Diagnosis Date HTN (hypertension) (CMS/HCC) LINSEY (obstructive sleep apnea) Testosterone deficiency in male Past Surgical History: Procedure Laterality Date CARPAL TUNNEL RELEASE Right 2015 DR ZARATE No Known Allergies Current Outpatient Medications on File Prior to Visit Medication Sig Dispense Refill albuterol (ProAir Digihaler) 90 mcg/act breath-activated inhaler (w/ sensor) 0 Refill(s) ALPRAZolam (Xanax) 0.5 MG tablet 0.5 mg cholecalciferol (Vitamin D3) 200 Unit tablet split tablet Take by mouth fluticasone (Flonase) 50 MCG/ACT nasal spray Administer 1-2 sprays into each nostril Daily Shake gently. Before first use, prime pump. After use, clean tip and replace cap. 16 g 2 lisinopril 10 MG tablet Take 10 mg by mouth in the morning. omeprazole (PriLOSEC) [address] capsule Take 10 mg by mouth in the morning. Take before meals. Do not crush or chew.. tadalafil (Cialis) 5 MG tablet Take 5 mg by mouth Daily temazepam (Restoril) 30 MG capsule Take by mouth Daily as needed testosterone cypionate (Depo-Testosterone) 200 MG/ML injection testosterone cypionate 200 mg/mL intramuscular oil timolol (Timoptic) 0.5 % ophthalmic solution Administer 1 drop into both eyes Daily tiZANidine (Zanaflex) 4 MG capsule 0 Refill(s) valsartan (Diovan) 80 MG tablet Take 1 tablet (80 mg) by mouth at bedtime 90 tablet 0 zolpidem CR (Ambien CR) 12.5 MG ER tablet Take 12.5 mg by mouth as needed at bedtime for sleep Do not crush, chew, or split. [DISCONTINUED] Allergy Relief 10 MG tablet TAKE 1 TABLET BY MOUTH ONCE DAILY AT BEDTIME 30 tablet 2 [DISCONTINUED] doxycycline (Vibramycin) 100 MG capsule 100 mg [DISCONTINUED] omeprazole OTC (PriLOSEC OTC) 20 MG EC tablet Prilosec OTC 10mg QD No current facility-administered medications on file prior to visit. Objective Last Recorded Vitals Vitals: 07/01/24 1045 BP: 135/70 Pulse: 68 ENT Physical Exam Constitutional Appearance: patient appears well-developed and well-nourished, Head and Face Appearance: head appears normal and face appears atraumatic; Ear Ear comments: Bakari ears normal Nose External Nose: nares patent bilaterally; external nose normal; Internal Nose: nasal mucosa normal; Oral Cavity/Oropharynx Lips: normal; Teeth: normal; Gums: gingiva normal; Tongue: normal; Oral mucosa: normal; Hard palate: normal; Neck Neck: neck normal; neck palpation normal; Thyroid: thyroid normal; Respiratory Inspection: breathing unlabored; normal breathing rate; Auscultation: breath sounds are clear; Cardiovascular Inspection: extremities are warm and well perfused; no peripheral edema present; Auscultation: regular rate and rhythm; Assessment/Plan Diagnoses and all orders for this visit: LINSEY (obstructive sleep apnea) LPRD (laryngopharyngeal reflux disease) Throat sx are most characteristic for LPRD or possibly inadequate CPAP pressure. 2022 CPAP titration was to 12cm H2O. I will start an aggressive reflux regime. I also recommend pt be referred back to Dr Quintanilla as his CPAP pressure is well below the titrated pressure documented in this encounter [facility] 03-09-2024 History of Present illness Narrative Associated [...] tolerated, f/U prn documented in this encounter [facility] 02-17-2024 History of Present illness Narrative [...] is elevated on the wheel. TX: XR [facility] 02/17/24, TYL, painburst cream, Objective Left Shoulder [...] arthritis of the glenohumeral joint. Brii Oconnor [employer] L Inj/Asp: L subacromial bursa on 02/17/2024 [...] in 2 weeks. 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 Was seen in Ed on 12/31/23; Dx with Meally Palsy. Had a sinus infection the weeks [...] for Follow-up. HPI Was in ED for Meally Palsy on 12/31/2023- Had a sinus infection [...] seen in Ed on 12/31/23; Dx with Meally Palsy. Had a sinus infection the weeks [...] Pt verbalized understanding. documented in this encounter [facility] 12-13-2023 History of Present illness Narrative [...] a 78 y.o. male who presents for Establish Care (/). HPI Specialists: Neurology- [facility] Urology- Dr. Viera HTN: Pt changed [...] 80 MG tablet documented in this encounter [facility] 12-12-2023 Instructions Josh Hearn NP - [...] sleep per night. documented in this encounter [facility] 10-15-2023 Hospital Discharge instructions Patient Education [...] therapy. Follow these instructions at home: Take lhpg-sbc-xkonldy and prescription medicines only as told by [...] provider. Document Revised: 11/17/2020 Document Reviewed: 11/17/2020 [employer] Patient Education 2022 Eons. Follow Up Care 10/17/2022 15:04:57 With:EWA VIERA PA-C, URL Address: [address] [place] [address] [phone] When: Unknown Comments:1 year w/ PSA, LFTs, Lipids, H&H, total T level [facility] 10-15-2023 Evaluation + Plan note Diagnostic Tests PendingTestosterone Level Total 10/15/23epatic Function Panel 10/15/23Lipid Panel 10/15/23emoglobin and Hematocrit 10/15/23PSA Total 10/15/23 [facility] 10-15-2023 Note Patient Education Urology Hypogonadism, [...] Follow these instructions at home: ? Take pgwe-eao-mamazem and prescription medicines only as told by [...] provider. Document Revised: (more content not included)... [facility] 03-19-2023 Evaluation note Encounter Date Diagnosis [...] today 120s/80s, he reports white coat syndrome. [employer] Other 12-14-2023 Evaluation note* Encounter Date Diagnosis [...] (suspected) exposure to covid-19 (ICD-10 - Z20.822) [employer] Other 07-19-2023 Hospital Discharge instructions Patient Education [...] therapy. Follow these instructions at home: Take wnem-lhd-igkskvn and prescription medicines only as told by [...] provider. Document Revised: 11/17/2020 Document Reviewed: 11/17/2020 [employer] Patient Education 2022 Eons. Follow Up Care 08/31/2022 12:38:12 With:EWA VIERA PA-C, URL Address: [address] [place] [address] [facility] [place] [address] When: Unknown [facility] 01-16-2023 Hospital Discharge instructions Patient Education [...] 06/24/2001 Document Revised: 07/09/2019 Document Reviewed: 02/11/2017 [employer] Patient Education 2020 [employer] Follow Up Care 10/16/2021 15:07:22 With:SCOTT HOANG, Murali Blancas, URL Address: [address] [place] [address]- When:6 months Comments:PSA & testosterone [facility] 07-18-2022 Hospital Discharge instructions Patient Education [...] urethra. Follow these instructions at home: Take owdp-gtu-vqbzpyn and prescription medicines only as told by [...] 03/18/2006 Document Revised: 02/10/2019 Document Reviewed: 04/22/2017 [employer] Patient Education [employer] Follow Up Care 04/17/2021 14:02:48 With:Murali SCHRADER MD, URL Address: [address] [place], [place] [id number]- When:3 months Comments:Testosterone level [facility] Evaluation + Plan note Future Appointments Appointment Date:04/16/2022 02:15:00 PM Scheduled Provider:Murali SCHRADER MD Location:[facility] Appointment Type:URO Office Visit Diagnostic Tests Pending * Testosterone Level Total 10/16/21 [facility] Evaluation + Plan note Future Appointments Appointment Date:10/15/2022 02:15:00 PM Scheduled Provider:Murali SCHRADER MD Location:[facility] Appointment Type:URO Office Visit Diagnostic Tests Pending * PSA Total 04/16/22 * Testosterone Level Total 04/16/22 [facility] evaluation + Plan note Future Appointments Appointment Date:10/23/2023 01:20:00 PM Scheduled Provider:EWA VIERA PA-C Location:[facility] Appointment Type:URO Office Visit Diagnostic Tests Pending * PSA Total 08/31/23 * Testosterone Level Total 10/17/22 * Hemoglobin and Hematocrit 08/31/23 * Hepatic Function Panel 08/31/23 * Lipid Panel 08/31/23 [facility] evaluation noteNo [employer] Other evaluation note* Diagnosis Onset Date Resolution Status Bee sting reaction acute [facility] Work Phone: evaluation note* Diagnosis Onset Date Resolution Status Bee sting reaction acute Acute maxillary sinusitis, unspecified acute [facility] Work Phone: evaluation note* Diagnosis Primary hypertension (CMS/HCC)- Primary Unspecified [...] in adult- Primary documented in this encounter [facility] Diagnosis Onset Date Resolution Status Admit Date Bronchitis acute May 09, 2024 9:08am [facility] Work Phone: Evaluation note* Diagnosis Primary hypertension (CMS/HCC)- Primary Unspecified essential hypertension Encounter for wellness examination in adult Seasonal allergies Allergic rhinitis, cause unspecified Seasonal allergic rhinitis, unspecified trigger Screening for hyperlipidemia Screening for lipoid disorders Screening for diabetes mellitus Gordon's palsy- Primary LINSEY (obstructive sleep apnea)- Primary Obstructive sleep apnea (adult) (pediatric) LPRD (laryngopharyngeal reflux disease) Acute laryngitis, without mention of obstruction documented in this encounter [facility] HealthcareHistory general Narrative - Reported* Type Description Date Medical History glaucoma Medical History insomnia Medical History GERD (gastroesophageal reflux di sease) Medical History Hypothyroidism Surgical History tonsillectomy Surgical History appendectomy Surgical History carpal tunnel release right Hospitalization History see above [employer] Other Hospital course Narrative No data available for this section [facility] [employer] Progress note No data available for this section [facility] [employer] Summary Purpose Family History No Family History [...] section and content) DATE CREATED AUTHOR 06/20/2018 [facility] DATE CREATED AUTHOR AUTHOR'S ORGANIZ ATION 05/29/2022 [facility] DATE CREATED AUTHOR AUTHOR'S ORGANIZ ATION 01/05/2024 [facility] DATE CREATED AUTHOR AUTHOR'S ORGANIZ ATION 04/18/2024 [facility] DATE CREATED AUTHOR AUTHOR'S ORGANIZ ATION 06/13/2024 [facility] DATE CREATED AUTHOR AUTHOR'S ORGANIZ ATION 07/04/2024 [facility] Care Team (unrecognized sect ion and content) [...] December 28, 2023 End: December 28, 2023 Medical Reimbursement Manager Relationship Specialty Start Date End Date Roddy Orona MD [address] [place] [phone] PCP - General Family Medicine 12/09/23 Josh Hearn NP [address] [place] [address] Nurse Practitioner Family Medicine 12/09/23 Medical Reimbursement Manager Relationship Specialty Start Date End Date Roddy Orona MD [address] [place] [phone] PCP - General Family Medicine 12/09/23 Josh Hearn NP [address] [place] [address] Nurse Practitioner Family Medicine 12/09/23 Medical Reimbursement Manager Relationship Specialty Start Date End Date Frederick Gonzalez MD [facility] [place] [address] PCP - General Family Medicine 02/17/24 Medical Reimbursement Manager Relationship Specialty Start Date End Date Frederick Gonzalez MD [facility] [place] [address] PCP - General Family Medicine 02/17/24 Medical Reimbursement Manager Relationship Specialty Start Date End Date Frederick Gonzalez MD [address] [place] [address] PCP - General Family Medicine 02/17/24 Medical Reimbursement Manager Relationship Specialty Start Date End Date Roddy Orona MD [address] [place] [phone] PCP - General Family Medicine 12/09/23 Josh Hearn NP [address] [place] [address] Nurse Practitioner Family Medicine 12/09/23 Medical Reimbursement Manager Relationship Specialty Start Date End Date Roddy Orona MD [address] [place] [phone] PCP - General Family Medicine 12/09/23 Josh Hearn NP [address] [place] [address] Nurse Practitioner Family Medicine 12/09/23 Medical Reimbursement Manager Relationship Specialty Start Date End Date Frederick Gonzalez MD [address] [place] [address] PCP - General Family Medicine 02/17/24 Medical Reimbursement Manager Relationship Specialty Start Date End Date Frederick Gonzalez MD [address] [place] [address] PCP - General Family Medicine 02/17/24 Medical Reimbursement Manager Relationship Specialty Start Date End Date Roddy Orona MD [address] [place] [phone] PCP - General Family Medicine 12/09/23 Josh Hearn NP [address] [place] [address] Nurse Practitioner Family Medicine 12/09/23 Team Status: Active Member Role Status Misty Gonzalez DO Primary Care Provider Active Team Status: Inactive Member Role Status Dates Frederick Gonzalez DO Primary Care Provider Active Start: May 09, 2024 End: May 09, 2024 Magnolia Costa APRN Attending Provider Active S tart: May 09, 2024 End: May 09, 2024 Medical Reimbursement Manager Relationship Specialty Start Date End Date Frederick Gonzalez MD [address] [place] [address] PCP - General Family Medicine 02/17/24 Medical Reimbursement Manager Relationship Specialty Start Date End Date Frederick Gonzalez MD [address] [place] [address] PCP - General Family Medicine 02/17/24 REASON FOR VISIT (unrecogniz ed section and content) Reason Comments Follow-up Reason Comments Pain Reason Comments Med Refill Reason Comments Establish Care Reason Comments Follow-up Reason Comments Sinusitis Goals (unrecognized section and content) Goals may [...] BE BASED ON THE PRIMARY CLINICAL RECORDS. [employer] provides no warranty or guarantee of the accuracy or completeness of information in this document.
[2024-09-11 09:27] LABS: Hematocrit 46.1 % (42.0-54.0); Hemoglobin 15.2 g/dL (14.0-18.0)
[2024-09-11 11:12] LABS: Prostate Specific Antigen Dx 1.25 ng/mL (<=4.00)
[2024-09-11 11:48] LABS: Alanine Aminotransferase 28 U/L (16-63); Albumin Globulin Ratio 0.9; Albumin Level 3.5 g/dL (3.4-5.0); Alkaline Phosphatase 89 U/L (46-116); Aspartate Amino Transferase 16 U/L (15-37); Bilirubin Direct 0.1 mg/dL (0.0-0.2); Bilirubin Total 0.7 mg/dL (0.2-1.0); Total Protein 7.5 g/dL (6.4-8.2)
[2024-09-12 04:50] LABS: Testosterone 355 ng/dL (264-916)
== END 2024-09-11 08:41 | disposition home or self-care (01) ==
LOC: LAB 08:46
PROVIDERS: PCP Family Medicine; Visit Provider Physician Assistant
DX: E29.1 Testicular hypofunction (principal); N40.1 Benign prostatic hyperplasia with lower urinary tract symptoms
CPT/HCPCS: 36415; 80076; 84153; 84403; 85014; 85018

== ENCOUNTER 2024-11-16 11:19 | Outpatient (OUT) | payer MEDICARE, OTHER, SELFPAY ==
--- NOTE | 2024-11-16 11:21 | XR_ITS ---
[place] [id number] Patient Name: ALEXSANDER GOVEA MRN: [id number] date: 1945 Sex: M Assigned Patient Location: [facility] Current Patient Location: [facility] Accession/Order Number: [id number] Exam Date: 11/16/2024 12:46 Report Date: 11/16/2024 12:47 At the request of: CHUCK RUIZ DO Procedure: XR shoulder LT min 2V 4 views left shoulder plain film HISTORY: Chronic left shoulder pain. COMPARISON: 04/10/2018 ACUTE FINDINGS: None DEGENERATIVE CHANGE: Marked glenohumeral joint space narrowing. Moderate progression. Inferior marginal spurring glenohumeral joint and acromioclavicular joint SOFT TISSUE FINDINGS: Unremarkable JOINT EFFUSION: None POSTOP CHANGES: None BONY MINERALIZATION: Adequate XR/XR shoulder LT min 2V IMPRESSION: Progressive extensive degenerative change Impression dictated by: Noam Aguilar M.D. 11/16/2024 12:47 PM Dictation Location: [place] [address] Electronically authenticated by: [id number] Y Date: 11/16/2024 12:47
--- OUTSIDE RECORDS SUMMARY | 2024-11-16 11:25 | XMS_ITS | CCD ---
Author Organization [facility] Care Team Providers Care Exceptional Children Teacher Name Role Phone NARCISO MARINELLI Attending Unavailable RICE, MURALI Blancas Referring Unavailable FANNING, NARCISO Zapien Referring Unavailable FANNING, NARCISO Zapien Attending Unavailable RUPERTO BLAS Referring Unavailab le Lisa, Frederick Bradley Primary Care Physician [phone] LISA, DR HARMAN Primary Care Unavailable RICE, [...] able Roddy Orona MD Primary Care Provider [phone] Josh Hearn NP Unavailable [phone] Frederick Gonzalez MD Primary Care Provider LISA, DO FREDERICK Bradley Attending Unavailable HOUSE, FREDERICK Bradley Primary Care Unavailable LISA, FREDERICK Bradley Primary Care Unavailable HOUSE, DO FREDERICK Bradley Attending Unavailable HOUSE, DO FREDERICK Bradley Attending Unavailable HOUSE, FREDERICK Bradley Primary Care Unavailable EDA JUNIOR Attending Unavailable JOSH HEARN Attending UnavailJOSH Chavez Attending UnavailBRII Trivedi Attending Unavailable APLBRII KATE Referring Unavailable BRII OCONNOR Attending Unavailable House Frederick CHAPA Primary Care Provider Sharon Rodriguez APRN Attending Provider [phone] FREDERICK GONZALEZ Primary Care Physician [phone] EWA VIERA Attending Unavailable EWA VIERA Attending Unavailable Allergies Allergy Classification Reported Allergen(s) Allergy Type Date of Onset Reaction(s) Facility (1 source) No Known Medication Allergies; 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: [No Known Medication Allergies] Propensity to adverse reactions (disorder) [facility] Repository Medications Current Medications Medication Drug Class(es) Dates Sig (Normalized) Sig (Original) sensor 200 actuat albuterol 0.09 mg/actuat dry powder inhaler (4 sources) beta2-Adrenergic Agonist Start: 05-14-2024 albuterol (ProAir Digihaler) 90 mcg/act breath-activated inhaler (w/ sensor) 0 Refill(s) 05/14/2024 Active Start: 05-09-2024 Albuterol Sulf ate 90 mcg/actuation HFA aerosol inhaler Active 2 INH INHALATION EVERY 4-6 HOURS as needed for shortness of breath or wheezing 6.7 May 09, 2024 1:00am Complies with drug therapy Albuterol Sulfate 90 mcg/actuation HFA aerosol inhaler [...] Mar, Active benzonatate 100 mg oral capsule (2 sources) Non-narcotic Antitussive Start: 05-09-2024 take 1 capsule by mouth three times daily as needed for cough Benzonatate 100 mg capsule Active 100 MG PO Three times daily as needed for cough 7 May 09, 2024 1:00am Complies with drug therapy cholecalciferol (Vitamin D3) 200 Unit tablet split [...] propionate 0.05 mg/actuat metered dose nasal spray (19 sources) Corticosteroid Start: 12-12-2023 End: 12-11-2024 Fluticasone Propionate 50 mcg/actuation spray,suspension Active INTRANASAL December 28, 2023 12:00am Complies with drug therapy levothyroxine sodium 0.075 mg oral tablet (6 [...] morning. Active loratadine 10 mg oral tablet (20 sources) Start: End: take 1 tablet by mouth once daily Loratadine (Allergy Relief (Loratadine)) 10 mg tablet Active 10 MG PO Daily December 28, 2023 12:00am Complies with drug therapy Start: 12-12-2023 End: 03-05-2024 take 1 capsule [...] Active Start: 12-29-2018 End: 07-01-2024 take 1 mg by mouth once daily Prilosec 10 mg Cap-EC mg cap(s), Oral, Daily, Refills(s) 0 Start Date: 12/29/18 Status: Ordered Repeat number: 1 End: 07-01-2024 omeprazole OTC (PriLOSEC OTC ) 20 MG EC tablet Prilosec OTC 10mg QD 07/01/2024 Discontinued (Therapy completed) [facility] PriLOSEC 10 MG 1 capsule 30 minutes before morning meal Orally Once a day Active predniSONE (4 sources) Start: 10-12-2024 predniSONE 10 mg Tab See Instructions, Refills(s) 0 Start Date: 10/12/24 Status: Ordered Repeat number: 1 Start: 10-08-2024 Prednisone 10 mg tablet Active 10 MG PO As Directed 20 12October 08, 2024 12:00am 4 tablets x 3 days, 2 tablets x 3 days, 1 tablet x 3 days Complies with drug therapy Start: 05-09-2024 take 2 tablets [facility] daily Prednisone 20 mg tablet Active 40 MG PO Daily 6 May 09, 2024 1:00am Complies with drug therapy tadalafil 5 mg oral tablet (20 sources) Phosphodiesterase 5 Inhibitor Start: 10-23-2018 take 1 tablet by mouth once daily Cialis 5 mg oral tablet 5 mg = 1 tab(s), Oral, Daily Start Date: 10/23/18 Status: Ordered Repeat number: 1 Temazepam (8 sources) Benzodiazepine Start: 12-25-2018 temazepam 30 m g Start Date: 12/25/18 Status: Ordered temazepam (Maria A ril) 30 MG capsule Take by mouth Daily as needed Active Temazepam Not-Ta radha/PRN testosterone cypionate 100 mg/ml injectable solution (14 sources) Androgen Start: 11-01-2023 testosterone c ypionate 100 mg/mL intramuscular solution 50 mg, IntraMuscular, q5day, # 10 mL, Refills(s) 5, Pharmacy: [id number], 172, cm, 10/15/23 13:01:00 EDT, Height/Length Dosing, 88.5, kg, 10/15/23 13:01:00 EDT, Weight Dosing Start Date: 07/24/24 Status: Ordered Quantity: 10.0 Unit: mL Repeat number: 6 Indications: Testicular hypofunction; Start: 11-01-2023 Testosterone C ypionate Active 50 MG IM .Q5days November 01, 2023 12:00am Start: 09-17-2023 testosterone c ypionate 100 mg/mL intramuscular solution 50 mg, IntraMuscular, q5day, # 10 mL, Refills(s) 5, Pharmacy: [id number], 172, cm, 10/17/22 13:50:00 EDT, Height/Length Dosing, 95, kg, 10/17/22 13:50:00 EDT, Weight Dosing Start Date: 09/17/23 Status: Ordered Start: 10-17-2022 testosterone c ypionate 100 mg/mL intramuscular solution 50 mg, IntraMuscular, q5day, # 10 mL, Refills(s) 5, Pharmacy: [id number], 172, cm, 10/17/22 13:50:00 EDT, Height/Length Dosing, 95, kg, 10/17/22 13:50:00 EDT, Weight Dosing Start Date: 10/17/22 Status: Ordered Start: 01-22-2022 testosterone c ypionate 100 mg/mL intramuscular solution 50 mg, IntraMuscular, q5day, # 10 mL, Refills(s) 3, [facility]: [id number], 172, cm, 10/16/21 14:53:00 EDT, Height/Length Dosing, 95, kg, 10/16/21 14:53:00 EDT, Weight Dosing Start Date: 01/22/22 Status: Ordered Start: 10-16-2021 testosterone c ypionate 100 mg/mL intramuscular solution 50 mg, IntraMuscular, q7day, # 10 mL, Refills(s) 3, [facility]: [id number], 172, cm, 10/16/21 14:53:00 EDT, Height/Length Dosing, [...] 2.5 mg/ml ophthalmic solution (20 sources) beta-Adrenergic Rosalino Start: 12-28-2023 take 1 drop(s) into the eye(s) once Timolol Maleate 0.25 % drops Active 1 DROPS OPHTHALMIC Once December 28, 2023 12:00am Complies with drug therapy Start: 12-28-2023 take 1 drop(s) into the eye(s) once Timolol Maleate Active 1 DROPS OPHTHALMIC Once December 28, 2023 12:00am Start: 11-01-2023 End: 12-28-2023 take 0.5 drop(s) into the eye(s) once daily Timolol 0.5 % drops Discontinued 1 DROPS EYE-BOTH Daily November 01, 2023 12:00am December 28, 2023 11:22am Start: 11-01-2023 End: 12-28-2023 take 1 drop(s) into the eye(s) once daily Timolol Discontinued 1 DROPS EYE-BOTH Daily November 01, 2023 12:00am December 28, 2023 11:22am Start: 11-01-2023 take 1 drop(s) into the eye(s) once daily Timolol Active 1 DROPS EYE-BOTH Daily November 01, 2023 12:00am Start: 10-10-2020 Timolol GFS 0. 5% Gel drop(s), Daily, Refill(s) 0 Start Date: 10/10/20 Status: Ordered Repeat number: 1 Start: 10-10-2020 Timolol GFS 0. 5% Gel [...] O November 01, 2023 12:00am Start: 10-17-2022 take 1 tablet by bryanna th once daily at bedtime as needed for sleep Ambien CR 12.5 mg Tab-ER 12.5 mg = 1 tab(s), Oral, Once a day (at bedtime), PRN for sleep Start Date: 10/17/22 Status: Ordered Repeat number: 1 Completed/Discontinued Medications Medication Drug Class(es) Dates Sig (Normalized) Sig (Original) amoxicillin 875 mg / clavulanate 125 mg oral tablet (4 sources) Penicillin-class Antibacterial Start: 12-28-2023 End: 05-09-2024 take 1 tablet by mouth every twelve hours Amoxicillin-Pot Clavulanate 875-125 mg tablet Discontinued 1 TAB PO Every 12 hours 18 01December 28, 2023 12:00am May 09, 2024 10:29am Start: 03-19-2023 take 1 tablet by bryanna th every twelve hours Amoxicillin-Pot Clavulanate 875-125 MG 1 tablet Orally every 12 hrs for 10 day(s) Mar, Active 1 ml methylPREDNISolone acetate 40 mg/ml injection (15 sources) Corticosteroid Start: 03-09-2024 End: 03-09-2024 methylPREDNISolone acetate (DEPO-Medrol) injection 40 mg Start: 03-09-2024 End: 03-09-2024 40 mg, Intra-articular, Once PRN Procedure, Starting on 03/09/24 at 1025, For 1 dose Start: 02-17-2024 End: 02-17-2024 methylPREDNISolone acetate (DEPO-Medrol) injection 40 mg Start: 02-17-2024 End: 02-17-2024 40 mg, Intra-articular, Once PRN Procedure, Starting on 02/17/24 at 1157, For 1 dose Start: 11-01-2023 [...] oral tablet (20 sources) Angiotensin 2 Receptor Rosalino Start: 12-28-2023 End: 12-28-2023 take 2 tablets by mouth once daily Valsartan 40 mg tablet Discontinued 80 MG PO Daily December 28, 2023 11:20am December 28, 2023 11:22am Start: 12-28-2023 End: 12-28-2023 take 80 mg by mouth once daily Valsartan Discontinued 80 MG PO Daily December 28, 2023 11:20am December 28, 2023 11:22am Start: 11-01-2023 End: 12-28-2023 take 1 tablet by mouth once daily Valsartan 40 mg tablet Discontinued 40 MG PO Daily November 01, 2023 12:00am December 28, 2023 11:22am Start: 10-10-2020 End: 12-12-2023 take 1 tablet by mouth once daily Valsartan 80 mg tablet Active 80 MG PO Daily December 28, 2023 12:00am Complies with drug therapy take 1 tablet by bryanna th every twelve hours Valsartan 40 MG 1 tablet Orally Twice a day Active Problems Active Problems Problem Classification Problem Date Documented Date Episodic/Chronic Chronic kidney disease (2 sources) Chronic renal failure; 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: [Chronic kidney disease, unspecified] Onset: 07-01-2024 07-01-2024 Chronic Chronic obstructive pulmonary disease and bronchiectasis (3 sources) Bronchitis; 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: [Bronchitis, not specified as [...] 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: [Microscopic hematuria] Onset: 10-17-2022 10-23-2018 Episodic Glaucoma (2 sources) Glaucoma; 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: [Unspecified glaucoma] [...] reading, without diagnosis of hypertension Episodic Other diseases of kidney and ureters (1 source) Urinary tract obstruction; 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: [Other obstructive and reflux uropathy] Onset: 10-12-2024 Episodic Other endocrine disorders (5 sources) Testicular hypofunction; 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: [Testicular hypofunction] Onset: 10-16-2021 Chronic Other endocrine disorders (20 sources) Male hypogonadism; 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: [Testicular hypofunction] Onset: 12-12-2023 10-23-2018 Chronic Other endocrine disorders (5 sources) Testicular hypofunction; 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: [TESTICULAR HYPOFUNCTION] Onset: 09-07-2021 Chronic Other hematologic conditions (1 source) Secondary polycythemia; 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: [Secondary polycythemia] Onset: 05-29-2018 Episodic Other male genital disorders (5 sources) Impotence 10-23-2018 Chronic Other male genital [...] 06-10-2024 07-01-2024 Chronic Other upper respiratory infections (7 sources) Acute pharyngitis, unspecified; 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: [Acute pansinusitis, unspecified] Episodic Poisoning by nonmedicinal substances (6 sources) Bee sting; 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: [Toxic effect of venom of bees, accidental (unintentional), initial encounter] 11-01-2023 Episodic Residual codes; unclassified (5 sources) Sleep apnea 10-23-2018 Chronic Residual codes; unclassified (4 sources) Obstructive sleep apnea syndrome; 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: [Obstructive sleep apnea (adult) (pediatric)] Onset: 07-01-2024 07-01-2024 Chronic Residual codes; unclassified (7 sources) Insomnia; 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: [Insomnia, unspecified] Onset: 07-01-2024 10-23-2018 Episodic Thyroid disorders (1 source) Hypothyroidism, unspecified; 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: [HYPOTHYROIDISM UNSPECIFIED] Onset: 09-12-2021 Chronic Unclassified (5 sources) Asymptomatic microscopic hematuria 04-04-2020 Unclassified (5 sources) Drug therapy finding 10-23-2018 Past or Other Problems Problem Classification Problem Date Documented Da te Episodic/Chronic Administrative/social admission (16 sources) First encounter by subject; 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: [Persons encountering health services in other specified circumstances] Onset: 12-12-2023 12-12-2023 Episodic Other aftercare (16 sources) Drug therapy finding; 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: [senior living (current) use of 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] Onset: 12-12-2023 12-12-2023 [...] Reference Range Facility Ambulatory Visit Summaryon 0 10-12-2024 Ambulatory Visit Summary Ambulatory Visit Summary LAMONT LOWERY :1945 Visit Date:10/12/2024 Ambulatory Visit Instructions Your Diagnosis Male hypogonadism BPH with urinary obstruction Other obstructive and reflux uropathy Your Care Team Attending Physician - EWA VIERA PA-C Primary Care Physician - FREDERICK GONZALEZ DO This Is Your Medications List omeprazole (Prilosec 10 mg Cap-EC) predniSONE (predniSONE 10 mg Tab) tadalafil (Cialis 5 mg oral tablet) testosterone (testosterone cypionate 100 mg/mL intramuscular solution) timolol ophthalmic (Timolol GFS 0.5% Gel) valsartan (valsartan 80 mg Tab) zolpidem (Ambien CR 12.5 mg Tab-ER) Procedures Performed Appendectomy, Carpal tunnel release. Discharge Vitals Temperature (Temporal Artery) 37 ???C Heart Rate (Peripheral) 85 Respiratory Rate 18 Blood Pressure 138/89 Height 172 cm Height 68 in Weight 89.7 kg Weight 197.754 lb BMI 30.32 What to do next You Need to Schedule the Following Appointments Follow Up with MAXIMILIANO MAIER, SAMI MARTINEZ When: In 1 year Where: [address] [place] [address] Medications What How Much When Why Instructions Unchanged omeprazole (Prilosec 10 mg Cap-EC) By Mouth Every day Unchanged predniSONE (predniSONE 10 mg Tab) See instructions Unchanged tadalafil (Cialis 5 mg oral tablet) 1 Tablets By Mouth Every day Unchanged testosterone (testosterone cypionate 100 mg/ mL intramuscular solution) 50 Milligram Intramuscular Every 5 days Male hypogonadism Unchanged timolol ophthalmic (Timolol GFS 0.5% Gel) Every day Unchanged valsartan (valsartan 80 mg Tab) By Mouth Every day Unchanged zolpidem (Ambien CR 12.5 mg Tab-ER) 1 Tablets By Mouth Once a day (at bedtime) as needed for for sleep Allergies No Known Medication Allergies Problems Ongoing [...] you for choosing us for your care. Education Materials Benign Prostatic Hyperplasia Benign prostatic hyperplasia (BPH) is an enlarged prostate gland that is caused by the normal aging process. The prostate may get bigger as a man gets older. The condition is not caused by cancer. The prostate is a walnut-sized gland that is involved in the production of semen. It is located in front of the rectum and below the bladder. The bladder stores urine. The urethra carries stored urine out of the body. An enlarged prostate can press on the urethra. This can make it harder to pass urine. The buildup of urine in the bladder can cause infection. Back pressure and infection may progress to bladder damage and kidney (renal) failure. What are the causes? This condition is part of the normal aging process. However, not all men develop problems from this condition. If the prostate enlarges away from the urethra, urine flow will not be blocked. If it enlarges toward the urethra and compresses it, there will be problems passing urine. What increases the risk? This condition is more likely to develop in men older than 50 years. What are the signs or symptoms? Symptoms of this condition include: ??? Getting up often during the night to urinate. ??? Needing to urinate frequently during the day. ??? Difficulty starting urine flow. ??? Decrease in size and strength of your urine stream. ??? Leaking (dribbling) after urinating. ??? Inability to pass urine. This needs immediate treatment. ??? Inability to completely empty your bladder. ??? Pain when you pass urine. This is more common if there is also an infection. ??? Urinary tract infection (UTI). How is this diagnosed? This condition is diagnosed based on your medical history, a physical exam, and your symptoms. Tests will also be done, such as: ??? A post-void bladder scan. This measures any amount of urine that may remain in your bladder after you finish urinating. ??? A digital rectal exam. In a rectal exam, your health care provider checks your prostate by putting a lubricated, gloved finger into your rectum to feel the back of your prostate gland. This exam detects the size of your gland and any abnormal lumps or growths. ??? An exam of your urine (urinalysis). ??? A prostate specific antigen (PSA) screening. This is a blood test used to screen for prostate cancer. ??? An ultrasound. This test uses sound waves to electronically produce a picture of your prostate gland. Your health care prov (more content not included)... [facility] Reminderson 10-12-2024 Reminders Reminders From: Lorri Metz To: EU - Administrative; Sent: 10/12/2024 13:45:33 EDT Show up: 06/30/2025 13:44:00 EDT Subject: Ambulatory Reminder Due Date/Time: 10/12/2025 13:43:00 EDT Reminder/Recall Patient was seeing Ewa Viera. He is needing a 1 yr f/u w/ PSA which is due around 10/12/2025. Please get him scheduled. [facility] Urology Office/Clinic Noteon 10-12-2024 Urology Office/Clinic Note Urology Office/Clinic Note Chief Complaint 1 year with labs HPI Staff 78 year old male here today for a 1yr follow up with labs. Previous DX:BPH with Urinary Obstruction and Male Hypogonadism. *Cialis 5mg qd Pt is taking 50mg q5 days, pt gives himself the injection. IPSS score today is 17. Incomplete emptying and frequency almost always. Intermittency about half the time. Weak stream less than half the time. Nocturia x2. Testosterone: 09/11/24 - 355 PSA: 09/11/24 - 1.25 HGB 09/11/24 - 15.2 HCT 09/11/24 - 46.1 Review of Systems PHQ Score Initial Depression Screen Score: 0 SCORE No fever, chills, malaise, myalgia. No abdominal pain, flank pain, gross hematuria. Physical Exam Vitals & Measurements T: 37 ???C(Temporal Artery) HR: 85(Peripheral) RR: 18 BP: 138/89 HT: 68 in HT: 172 cm WT: 197.754 lb WT: 89.7 kg BMI: 30.32 General: nontoxic, NAD Mouth: moist mucosa Lungs: normal respiratory effort Cardio: regular rate, good distal perfusion Abdomen: nondistended Neurologic: Grossly normal Skin: No rashes or suspicious lesions Assessment/Plan 1. Male hypogonadism (E29.1: Testicular hypofunction) On testosterone IM 50mg every 5 days, gives himself the injections. Has been donating blood q65 days. Pt gets his level drawn the day before he is due for next injection. He's been doing it this way for years w RWR and does not wish to change anything at this point. Testosterone: 06/14/23 - 524 09/07/23 - 353 09/11/24 - 355 CBC: 09/07/23 - Hgb 16.4, Hct 50.5 09/11/24 - Hgb 15.2, Hct 46.1 PSA: 09/01/21 - 1.04 09/08/22 - 0.96 09/07/23 - 1.01 09/11/24 - 1.25 LFTs 09/11/24 nl. Lipids 09/07/23 nl. Did not update prior to today's visit. -F/u in 1 year w/ PSA, LFTs, Lipids, H&H, total T level -Cont Testosterone 50mg q5days and donating blood q2mos Ordered: Complex E&M Add on G2211 E&M of Est. Patient Moderate 30-39 Min 76985 Hemoglobin and Hematocrit Hepatic Function Panel Lipid Panel PSA Screen, Total Testosterone Level Total Urnls Dip Stick Auto w/o Microscopy POC 32365 2. BPH with urinary obstruction (N40.1: Benign prostatic hyperplasia with lower urinary tract symptoms) Taking Cialis 5 mg qd. No side effects. RADHA 25. IPSS 17 (7) QOL 2 (1) Discussed options: Add 5 FELIBERTO. Pt does not feel sx are bothersome enough to warrant this. PVR is low. No UTIs or hematuria. I hesitate to add Alpha rosalino bc he brought record of BPs and they're running 100-120s so we don't have a lot of wiggle room if he were to get some orthostatic hypotension. -Cont Cialis 5mg qd Ordered: Complex E&M Add on G2211 E&M of Est. Patient Moderate 30-39 Min 27402 Other obstructive and reflux uropathy (N13.8: Other obstructive and reflux uropathy) Follow-up With When Contact Information MAXIMILIANO MAIER, EWA Zapien, URL In 1 year [address] [place] [address] Additional Instructions: Patient Education Benign Prostatic Hyperplasia Problem List/Past Medical History Ongoing Anticoagulated Asymptomatic microscopic hematuria BMI 30.0-30.9,adult BPH with urinary obstruction Male hypogonadism Male impotence Urinary hesitancy Historical Insomnia Sleep apnea Procedure/Surgical History Appendectomy, Carpal tunnel release. Medications Ambien CR 12.5 mg Tab-ER, 12.5 mg= 1 tab(s), Oral, Once a day (at bedtime), PRN Cialis 5 mg oral tablet, 5 mg= 1 tab(s), Oral, Daily predniSONE 10 mg Tab, See Instructions Prilosec 10 mg Cap-EC, Oral, Daily testosterone cypionate 100 mg/mL intramuscular solution, 50 mg, IntraMuscular, q5day, 5 refills Timolol GFS 0.5% Gel, Daily valsartan 80 mg Tab, Oral, Daily Allergies No Known Medication Allergies Social History Alcohol Current, 1-2 times per month, 10/23/2018 Substance Abuse Past, Heavy steroid use, 10/23/2018 Tobacco Never (less than 100 in lifetime) Tobacco Use:. Never Smokeless Tobacco Use:. Household tobacco concerns: No., 10/12/2024 Family History Family history is negative Immunizations Vaccine Date Status Comments SARS-CoV-2 (COVID-19) mRNA BNT-162b2 vax 03/16/2021 Recorded 2022-04-16: [id number] SARS-CoV-2 (COVID-19) mRNA BNT-162b2 vax 03/2021 Recorded SARS-CoV-2 (COVID-19) mRNA BNT-162b2 vax 06/29/2020 Recorded SARS-CoV-2 (COVID-19) mRNA-1273 vaccine 06/24/2020 Recorded SARS-CoV-2 (COVID-19) mRNA BNT-162b2 vax 06/08/2020 Recorded SARS-CoV-2 (COVID-19) mRNA-1273 vaccine 06/03/2020 Recorded diphtheria/pertussis, acel/tetanus adult 04/10/2018 Recorded Lab Results Ambulatory Point of Care Results Bilirubin Urine Dipstick: Negative (10/12/24 13:21:00) Blood Urine Dipstick: Trace-intact (10/12/24 13:21:00) Glucose Urine Dipstick: Negative (10/12/24 13:21:00) Ketones Urine Dipstick: Negative (10/12/24 13:21:00) Leukocytes Urine Dipstick: Negative (10/12/24 13:21:00) Nitrite Urine Dipstick: Negative (10/12/24 13:21:00) Protein Urine Dipstick: Negative (10/12/24 1 (more content not included)... [facility] Comment on above: Result Comment: Elec tronically Signed By: EWA VIERA PA-C\.br\Date and Time Signed: 10/12/24 13:49 EDT Lab - Other Lab Result[facility] Lab - Other Lab Results [id number]#1.00OT GTIFF [facility] Outside Recordson 05-11-2024 Outside Records [id number]#1.00OTG TIFF [facility] Outside [facility] 03-10-2024 Outside Records [id number] [id number]#1.00OTGT IFF [facility] No Panel Informationon 03-09 Brii Oconnor [...] and draped in the usual sterile fashion. Eveo e No Panel Informationon 02-16 Brii Oconnor [...] and draped in the usual sterile fashion. [facility] Should[facility] - left 2 Viewson 02-17-2024 Imaging Result: Xrays AP, axillary and y-scapula of the left shoulder performed on February 17, 2024 demonstrates bone on bone glenohumeral joint. Narrowing of the ac joint in addition. No fractures noted. Humerus centered within the glenoid. There is abnormal glenoid morphology. Impression Advanced arthritis of the glenohumeral joint. Brii Oconnor [facility] Radiology Study observation (narrative) [employer] XR Shoulder - left 2 ViewsOr dered By: Narciso Zarate on 02-17-2024 [employer] Work Phone: Lab - Other Lab Result[facility] Lab - Other Lab Results [id number]#1.00O [facility] Outside Recordson 01-17-2024 Outside Records [id number] [id number]#1.00O [facility] Patient Provided Health Data on 01-17-2024 Patient Provided Health Data [id number]#1.00O [facility] Ambulatory Visit Summaryon 0 10-15-2023 Ambulatory Visit Summary Ambulatory Visit Summary LAMONT LOWERY :1945 MRN: Visit Date:09/27/2018 Ambulatory Visit Instructions Your Diagnosis [...] Every 5 days Male hypogonadism Pickup at [facility] Unchanged tadalafil (Cialis 5 mg oral tablet) 1 Tablets By Mouth Every day Unchanged timolol ophthalmic (Timolol GFS 0.5% Gel) Every day Unchanged valsartan (valsartan 80 mg Tab) By Mouth Every day Unchanged zolpidem (Ambien CR 12.5 mg Tab-ER) 1 Tablets By Mouth Once a day (at bedtime) as needed for for sleep Pharmacy Information [facility]: [address] [place], [place] [id number] [phone] What When Comments Stop Taking aspirin Stop [...] choosing us for your care. Normal [facility] Urology Office/Clinic Noteon 10-15-2023 Urology Office/Clinic Note [...] When Contact Information EWA VIERA PA-C, URL [address] [address] [phone] Additional Instructions: 1 year w/ PSA, LFTs, [...] History Family (more content not included)... Normal [facility] Comment on above: Result Comment: Elec tronically Signed By: EWA VIERA PA-C\.br\Date and Time Signed: 10/15/23 13:49 EDT\.br\Electronically Co-Signed By: Chhaya Mason\.br\Date and Time Co-Signed: 10/15/23 13:43 EDT COVID + FLU Quick Testingon 03-14-2023 SARS-CoV-2 (COVID-19) RNA STEFF+probe Ql (Unsp spec) Negative [facility] Other COVID + FLU Quick Testing Negative [facility] Other Quick Strepon 03-14-2023 S. pyogenes Org specific cx Ql (Throat) Negative [facility] Other Quick Strep [facility] Other TESTOSTERONE, TOTALon 2022 Testosterone [Mass/Vol] 749 ng/dL Normal 264-916 [facility] Comment on above: Result Comment: Adul t male reference interval is based on a population of healthy nonobese males (BMI <30) between 19 and 39 years old. Travjackson, et.al. JCEM 2017,102;4360-1895. PMID: 96042050. Performed By: #### T ESTTOT #### [facility] [address] [place] [address] Dr. Lazaro Sam TESTOSTERONE, TOTALon 2021 Testosterone [Mass/Vol] 740 ng/dL Normal 264-916 [facility] Comment on above: Result Comment: Adul t male reference interval is based on a population of healthy nonobese males (BMI <30) between 19 and 39 years old. Travjackson, et.al. JCEM 2017,102;0870-4967. PMID: 16661002. Performed By: #### T ESTTOT #### [facility] [address] [place] [address] Dr. Lazaro Sam CBC AUTO DIFFon 09-08-2021 BASO # 0.0 103/ul Normal 0.0-0.1 [facility] Comment on above: Performed By: #### C BC #### [facility] [address] [place] [address] Dr. Lazaro Sam Basophils/100 WBC (Bld) 0.4 % Normal 0.2-2.0 [facility] Comment on above: Performed By: #### C BC #### [facility] [address] [place] [address] Dr. Lazaro Sam EO # 0.1 103/ul Normal 0.0-0.7 [facility] Comment on above: Performed By: #### C BC #### [facility] [address] [place] [address] Dr. Lazaro Sam Eosinophils/100 WBC (Bld) 0.6 % Critically low 0.9-7.0 [facility] Comment on above: Performed By: #### C BC #### [facility] [address] [place] [address] Dr. Lazaro Sam Erythrocyte distribution width (RBC) [Ratio] 13.7 % Normal 11.0-15.0 [facility] Comment on above: Performed By: #### C BC #### [facility] [address] [place] [address] Dr. Lazaro Sam Hematocrit (Bld) [Volume fraction] 52.4 % Normal 42.0-54.0 [facility] Comment on above: Performed By: #### C BC #### [facility] [address] [place] [address] Dr. Lazaro Sam Hemoglobin (Bld) [Mass/Vol] 17.3 g/dL Normal 14.0-18.0 [facility] Comment on above: Performed By: #### C BC #### [facility] [address] [place] [address] Dr. Lazaro Sam IG # 0.03 10e3/ul Normal 0.00-0.03 [facility] Comment on above: Performed By: #### C BC #### [facility] [address] [place] [address] Dr. Lazaro Sam IG % 0.4 % Normal 0.0-0.5 [facility] Comment on above: Performed By: #### C BC #### [facility] [address] [place] [address] Dr. Lazaro Sam LYMPH # 1.5 103/ul Normal 1.2-3.8 [facility] Comment on above: Performed By: #### C BC #### [facility] [address] [place] [address] Dr. Lazaro Sam Lymphocytes/100 WBC (Bld) 18.7 % Critically low 20.5-60.0 [facility] Comment on above: Performed By: #### C BC #### [facility] [address] [place] [address] Dr. Lazaro Sam MANUAL DIFF REQ NO Normal [facility] Comment on above: Performed By: #### C BC #### [facility] [address] [place] [address] Dr. Lazaro Sam MCH (RBC) [Entitic mass] 29.7 pg Normal 25.9-34.0 [facility] Comment on above: Performed By: #### C BC #### [facility] [address] [place] [address] Dr. Lazaro Sam MCHC (RBC) [Mass/Vol] 33.0 g/dL Normal 29.9-35.2 [facility] Comment on above: Performed By: #### C BC #### [facility] [address] [place] [address] Dr. Lazaro Sam MCV (RBC) [Entitic vol] 90.0 fL Normal 80.0-94.0 [facility] Comment on above: Performed By: #### C BC #### [facility] [address] [place] [address] Dr. Lazaro Sam MONO # 0.6 103/ul Normal 0.3-0.8 [facility] Comment on above: Performed By: #### C BC #### [facility] [address] [place] [address] Dr. Lazaro Sam Monocytes/100 WBC (Bld) 7.7 % Normal 1.7-12.0 [facility] Comment on above: Performed By: #### C BC #### [facility] [address] [place] [address] Dr. Lazaro Sam NEUT # 5.8 103/ul Normal 1.4-6.5 [facility] Comment on above: Performed By: #### C BC #### [facility] [address] [address] [address] Lazaro Sam Neutrophils/100 WBC (Bld) 72.2 % Normal 43.0-75.0 [facility] Comment on above: Performed By: #### C BC #### [facility] [address] [place] [address] Dr. Lazaro Sam Platelet mean volume (Bld) [Entitic vol] 9.1 fL Critically low 9.5-13.5 [facility] Comment on above: Performed By: #### C BC #### [facility] [address] [place] [address] Dr. Lazaro Sam PLT 162 103/ul Normal 150-450 [facility] Comment on above: Performed By: #### C BC #### [facility] [address] [place] [address] Dr. Lazaro Sam RBC 5.82 106/ul Normal 4.70-6.10 [facility] Comment on above: Performed By: #### C BC #### [facility] [address] [place] [address] Dr. Lazaro Sam WBC 8.1 103/ul Normal 4.0-11.0 [facility] Comment on above: Performed By: #### C BC #### [facility] [address] [place] [address] Dr. Lazaro Sam PROF 14(COMP METB)on 022 Albumin [Mass/Vol] 3.7 g/dL Normal 3.4-5.[address] [facility] Comment on above: Performed By: #### C MP, TSH #### [facility] [address] [place] [address] Dr. Lazaro Sam Albumin/Globulin [Mass ratio] 0.9 {ratio} Normal [facility] Comment on above: Performed By: #### C MP, TSH #### [facility] [address] [place] [address] Dr. Lazaro Sam ALP [Catalytic activity/Vol] 72 U/L Normal 46-116 [facility] Comment on above: Performed By: #### C MP, TSH #### [facility] [address] [address] [address] Lazaro Sam ALT [Catalytic activity/Vol] 42 U/L Normal 16-63 [facility] Comment on above: Performed By: #### C MP, TSH #### [facility] [address] [address] [address] Lazaro Sam Anion gap [Moles/Vol] 13.4 mmol/L Normal [facility] Comment on above: Performed By: #### C MP, TSH #### [facility] [address] [address] [address] Lazaro Sam AST [Catalytic activity/Vol] 22 U/L Normal 15-37 [facility] Comment on above: Performed By: #### C MP, TSH #### [facility] [address] [address] [address] Lazaro Sam Bilirubin [Mass/Vol] 0.6 mg/dL Normal 0.2-1.0 [facility] Comment on above: Performed By: #### C MP, TSH #### [facility] [address] [address] [address] Lazaro Sam Calcium [Mass/Vol] 8.8 mg/dL Normal 8.5-10.[address] [facility] Comment on above: Performed By: #### C MP, TSH #### [facility] [address] [address] [address] Lazaro Sam Chloride [Moles/Vol] 104 mmol/L Normal 98-107 [facility] Comment on above: Performed By: #### C MP, TSH #### [facility] [address] [address] [address] Lazaro Sam CO2 [Moles/Vol] 26.5 mmol/L Normal 21.0-32.0 [facility] Comment on above: Performed By: #### C MP, TSH #### [facility] [address] [address] [address] Lazaro Sam Creatinine [Mass/Vol] 1.30 mg/dL Normal 0.70-1.30 [facility] Comment on above: Performed By: #### C MP, TSH #### [facility] [address] [address] [address] Lazaro Sam EGFR-AF CITIZEN [place] >60 Normal >=60 [facility] Comment on above: Performed By: #### C MP, TSH #### [facility] [address] [address] [address] Lazaro Sam EGFR-NON AF CITIZEN OF [place] 54 mL/min/1.73m2 Critically low >=60 [facility] Comment on above: Performed By: #### C MP, TSH #### [facility] [address] [address] [address] Lazaro Sam Globulin (S) [Mass/Vol] 3.9 g/dL Normal [facility] Comment on above: Performed By: #### C MP, TSH #### [facility] [address] [address] [address] Lazaro Sam Glucose [Mass/Vol] 117 mg/dL Critically high 74-106 [facility] Comment on above: Performed By: #### C MP, TSH #### [facility] [address] [address] [address] Lazaro Sam Potassium [Moles/Vol] 3.9 mmol/L Normal 3.5-5.1 [facility] Comment on above: Performed By: #### C MP, TSH #### [facility] [address] [address] [address] Lazaro Sam Protein [Mass/Vol] 7.6 g/dL Normal 6.4-8.[address] [facility] Comment on above: Performed By: #### C MP, TSH #### [facility] [address] [address] [address] Lazaro Sam Sodium [Moles/Vol] 140 mmol/L Normal 136-[address] [facility] Comment on above: Performed By: #### C MP, TSH #### [facility] [address] [address] [address] Lazaro Sam Urea nitrogen [Mass/Vol] 23.0 mg/dL Critically high 7.0-18.0 [facility] Comment on above: Performed By: #### C MP, TSH #### [facility] [address] [place] [address] Dr. Lazaro Sam Urea nitrogen/Creatinin e [Mass ratio] 17.7 mg/mg Normal [facility] Comment on above: Performed By: #### C MP, TSH #### [facility] [address] [address] [address] Lazaro Sam T4on 09-08-2021 T4 [Mass/Vol] 7.70 ug/dL Normal 4.50-12.10 [facility] Comment on above: Performed By: #### T 4 #### [facility] [address] [place] [address] Dr. Lazaro Sam TSHon 09-08-2021 TSH 1.079 uIU/mL Normal 0.358-3.740 [facility] Comment on above: Performed By: #### C MP, TSH #### [facility] [address] [place] [address] Dr. Lazaro Sam TSH RANGE SEE BELOW Normal [facility] Comment on above: Result Comment: <0.3 4 UIU/ml HYPERTHYROID 0.34-5.60 UIU/ml EUTHYROID >5.60 UIU/ml HYPOTHYROID Performed By: #### C MP, TSH #### [facility] [address] [place] [address] Dr. Lazaro Sam TESTOSTERONE, FREE,DIRECT, T OTALon 09-03-2021 Free Testosterone(Direc t) 9.4 pg/mL Normal 6.6-18.1 [facility] Comment on above: Result Comment: Perf ormed at: BN Performed By: #### T ESTFRD #### [facility] [address] [place] [address] Dr. Lazaro Sam Testosterone [Mass/Vol] 328 ng/dL Normal 264-916 [facility] Comment on above: Result Comment: Adul t male reference interval is based on a population of healthy nonobese males (BMI <30) between 19 and 39 years old. Abel et.al. JCEM 2017,102;8056-2053. PMID: [id number]. Performed at: CB Performed By: #### T BIJAN #### [facility] [address] [place] [address] Dr. Lazaro Sam CNOVSPon 06-19-2018 CNOVSP Visit (SP) Office (HEMAC[facility]) -------- LAMONT LOWERY ([id number]) 1945 M Date Time Provider Department 06/19/18 2:30 PM NARCISO MARINELLI HEMGIULIANA During your visit today, [...] week. - CBC + DIFF (FOR REMOTE [facility] USE) Narciso Marinelli MD Referring Provider: RUPERTO BLAS [[id number]] Allergies As of Date: 06/19/2018 (No Known Allergies) Date Reviewed: 06/19/2018 Reviewed by: Melvi Valle - Fully Assessed Reason for Visit: polycythemia [Other] Cmt: follow up Primary Visit Diagnosis:Erythrocytosis [D75.1] Order(s):CBC + DIFF (FOR REMOTE [facility] USE) [SQRCBCDF] Order #: [id number] STANDING Disposition: Return in about 1 year [...] by NARCISO MARINELLI MD on 06/19/18 Normal [facility] PROGRESSon 06-19-2018 Protein mass conc HNO ID: [id number] Author: Narciso Marinelli Service: ? Author Type: [...] week. - CBC + DIFF (FOR REMOTE [facility] USE) Narciso Marinelli MD Normal [facility] Remote CBCDIF (for [facility] use o nly)on 06-19-2018 Abs Baso <0.03 Normal 0.00-0.10 [facility] Abs [place] 1.02 k/uL High 0.00-0.86 [facility] Abs Neut 5.04 k/uL Normal 1.45-7.50 [facility] Basophils/100 WBC (Bld) 0.2 % Normal [facility] Eosinophils #/vol (Bld) 0.40 10*3/uL Normal 0.00-0.45 [facility] Eosinophils/100 WBC (Bld) 4.5 % Normal [facility] Erythrocyte distribution width Ratio (RBC) 13.3 % Normal 11.5-15.0 [facility] Hematocrit Volume Fraction (Bld) 48.8 % Normal 39.0-51.0 [facility] Hemoglobin mass conc (Bld) 16.8 g/dL Normal 13.0-17.0 [facility] Lymphocytes #/vol (Bld) 2.43 10*3/uL Normal 1.00-4.00 [facility] Lymphocytes/100 WBC (Bld) 27.3 % Normal [facility] MCH Entitic mass (RBC) 30.5 pG Normal 26.0-34.0 [facility] MCHC mass conc (RBC) 34.4 g/dL Normal 30.5-36.0 [facility] MCV Entitic volume (RBC) 88.6 fL Normal 80.0-100.0 [facility] Monocytes/100 WBC (Bld) 11.4 % Normal [facility] Neutrophils/100 WBC (Bld) 56.6 % Normal [facility] Platelet mean volume Entitic volume (Bld) 9.6 fL Normal 9.0-12.7 [facility] Platelets #/vol (Bld) 152 10*3/uL Normal 150-400 [facility] RBC #/vol (Bld) 5.51 10*6/uL Normal 4.20-6.00 [facility] WBC #/vol (Bld) 8.91 10*3/uL Normal 3.70-11.00 [facility] BCR-ABL Qualitativeon 2018 BCR-ABL Qualitative (NOTE) Normal [facility] Comment on above: Result Comment: Plea se refer to [facility] Surgical Pathology report, Performed By: #### C ALR, BCRQL #### [facility] [address] [phone] CALR Exon 9 Mutationon 05-29 CALR Result/Interp Duplicate request Normal [facility] Comment on above: Result Comment: Acco unt Credited SEE MPNP. [id number] Performed By: #### C ALR, BCRQL #### [facility] [address] [address] CALR Reviewed by Duplicate request Normal [facility] Comment on above: Result Comment: Acco unt Credited SEE MPNP. [id number] Performed By: #### C ALR, BCRQL #### [facility] [address] [address] CALR Specimen Type Duplicate request Normal [facility] Comment on above: Result Comment: Acco unt Credited SEE MPNP. DMCKNIGHT 05 30 2018 Performed By: #### C ALR, BCRQL #### [facility] [address] [address] CNCOon 05-29-2018 CNCO Letter Text Dear Lamont Lowery: How to activate your [facility] [employer] Account 1. Visit the [employer] Signup page at [email or web address] 2. Identify yourself using your one-time use activation code: [email or web address] 3. Follow the on-screen prompts to choose [...] Create your login and password, choose a [employer] ID and password that will be easy for you to use, but impossible for anyone else to guess. Pick a security question that will assist you in the event you forget your password the next time you log-on. If you have difficulty activating your account, please call our [employer] helpline at [phone] or toll free at . We hope you enjoy using [employer]! Kindest Regards, [facility] [employer] Team Normal [facility] CNOVSPon 05-29-2018 CNOVSP Visit (SP) Office (HEMAC[facility]) -------- FRANKILAMONT GARCIA ([id number]) 1945 M Date Time Provider Department 05/29/18 [...] his hemoglobin 19.4 hematocrit 58.5 back in 2015. In 2007 his hemoglobin was 18.9 with [...] viscosity is hematocrit with the risk of AR, CVA, Budd Chiari, etc all increased proportionately [...] Narciso Marinelli MD Referring Provider: MURALI SCHRADER [[id number]] Allergies As of Date: 05/29/2018 (No Known Allergies) Date Reviewed: 05/29/2018 Reviewed by: Melvi Valle - Fully Assessed Reason for Visit: high HGB [Other] Cmt: new patient consultation ref. Dr. Schrader Primary Visit Diagnosis:Polycythemia [D75.1] Other Visit Diagnosis:Erythrocytosis [D75.1] Order(s):JAK2 V617F MUTATION BLOOD [SQJAK2] Order #: [id number] FUTURE BCR-ABL QUALITATIVE MULTIPLEX RT-PCR [SQBCRQL] Order #: [id number] FUTURE CALR EXON 9 MUTATION ANALYSIS BLOOD [SQCALR] Order #: [id number] FUTURE MPL MUTATION ANALYSIS BLOOD [SQMPL] Order #: [id number] FUTURE ABS GRAN CT + CBC (FOR [facility] USE) [SQRAGCBC] Order #: [id number] FUTURE ERYTHROPOIETIN/EPO [SQEPO] Order #: [id number] FUTURE HEPATIC FUNCTION PNL [SQHFP] Order #: [id number] FUTURE TESTOSTERONE TOTAL [SQTESTO] Order #: [id number] FUTURE Disposition: Return in about 3 weeks [...] by NARCISO MARINELLI MD on 05/29/18 Normal [facility] EPOon 05-29-2018 EPO 8.8 mIU/mL Normal 2.6-18.5 [facility] Comment on above: Result Comment: Test analyzed by the Xiang DxI method. Performed By: #### J AK2, EPO, HFP #### [facility] [address] [place], [place] [address] Hepatic Functn Panelon 05-29 Albumin mass conc 4.6 g/dL Normal 3.9-4.9 [facility] Comment on above: Performed By: #### J AK2, EPO, HFP #### [facility] [address] [place], [place] [address] ALP enzyme act/vol 60 U/L Normal 38-113 [facility] Comment on above: Performed By: #### J AK2, EPO, HFP #### [facility] [address] [phone] ALT enzyme act/vol 36 U/L Normal 10-54 [facility] Comment on above: Performed By: #### J AK2, EPO, HFP #### [id number] [phone] AST enzyme act/vol 29 U/L Normal 14-40 [facility] Comment on above: Performed By: #### [place]ille AK2, EPO, HFP #### [address] [phone] Bilirubin mass conc 0.5 mg/dL Normal 0.2-1.3 [facility] Comment on above: Performed By: #### Lucille AK2, EPO, HFP #### [address] [phone] Bilirubin,Conjugat ed <0.2 Normal <0.2 [facility] Comment on above: Performed By: #### Lucille AK2, EPO, HFP #### [address] [phone] Protein mass conc 7.6 g/dL Normal 6.3-8.0 [facility] Comment on above: Performed By: #### Lucille AK2, EPO, HFP #### [address] [phone] JAK2 V617F Mutationon 2018 JAK2 V617F Interp Duplicate request Normal [facility] Comment on above: Result Comment: Acco unt Credited SEE MPNP. [id number] Performed By: #### J AK2, EPO, HFP #### [address] [phone] JAK2 V617F Spec Type Duplicate request Normal [facility] Comment on above: Result Comment: Acco unt Credited SEE MPNP. [id number] Performed By: #### J AK2, EPO, HFP #### [facility] [address] [address] Molecular Path Rev Duplicate request Normal [facility] Comment on above: Result Comment: Acco unt Credited SEE MPNP. DMCKNIGHT 05 30 2018 Performed By: #### J AK2, EPO, HFP #### [facility] [address] [place] [address] MPL Mutationon 05-29-2018 MPL Mutation Interp Duplicate request Normal [facility] Comment on above: Result Comment: Acco unt Credited SEE MPNP. DMCKNIGHT 05 30 2018 Performed By: #### M PL #### [facility] [address] [id number] Myeloprolif Neopl Pnl Bloodo n 05-29-2018 Myelo Neopl Pnl Bld (NOTE) Normal [facility] Comment on above: Result Comment: Shannan vann refer to [facility] Surgical Pathology report, . Performed By: #### M PNP ####[facility] [id number] [phone] PROGRESSon 05-29-2018 Protein mass conc HNO ID: [id number] Author: Narciso Marinelli Service: (none) Author Type: Physician Type: Progress Notes Filed: 05/29/2018 12:28 PM Note Text: BARB Garibayjack Lowery is a 72 year old male [...] viscosity is hematocrit with the risk of AR, CVA, Budd Chiari, etc all increased proportionately [...] - TESTOSTERONE TOTAL Narciso Marinelli MD Normal [facility] Remote Abs Gran + CBC (for [facility] use only)on 05-29-2018 Absol Gran Count 3.85 k/uL Normal 1.45-7.50 [facility] Erythrocyte distribution width Ratio (RBC) 13.6 % Normal 11.5-15.0 [facility] Hematocrit Volume Fraction (Bld) 49.6 % Normal 39.0-51.0 [facility] Hemoglobin mass conc (Bld) 17.1 g/dL High 13.0-17.0 [facility] MCH Entitic mass (RBC) 30.5 pG Normal 26.0-34.0 [facility] MCHC mass conc (RBC) 34.5 g/dL Normal 30.5-36.0 [facility] MCV Entitic volume (RBC) 88.6 fL Normal 80.0-100.0 [facility] Platelet mean volume Entitic volume (Bld) 9.9 fL Normal 9.0-12.7 [facility] Platelets #/vol (Bld) 146 10*3/uL Low 150-400 [facility] RBC #/vol (Bld) 5.60 10*6/uL Normal 4.20-6.00 [facility] WBC #/vol (Bld) 6.86 10*3/uL Normal 3.70-11.00 [facility] SURGICAL PATHOLOGYon 28-2 019 SURGICAL PATHOLOGY PROCEDURE REPORT Specimen originated from [facility] Specimen #: [id number] Submitting Physician: NARCISO MARINELLI MD SPECIMEN SUBMITTED [...] this sample, and cDNA prepared by reverse hvac tech. Multiplex RT-PCR studies were performed using [...] developed and its performance characteristics determined by [facility]'s [facility] [place] ([facility]). It has not been cleared or approved by the FDA. -[facility] is regulated under CLIA as qualified to perform high-complexity testing. This test is used for clinical purposes. It should not be regarded as investigational or for research. As Reviewed by: Narciso Luong M.D., Ph. D. [facility]/cp 06/10/2018 Procedure Pathologist: Narciso Luong [...] sequencing was performed on the Illumina instrument ([place], [place]). A customized bioinformatic pipeline was used to align the sequencing reads to the reference human genome (GRCh37/hg19). Benign common polymorphisms are not reported. Limitations: Sequence changes outside the analyzed regions, including intronic, noncoding, and splice-site variants, will not be identified by this test. The lower limit of detection of this assay is approximately 1% allele proportion for the JAK2 [id number] single nucleotide variant and approximately 5% allele [...] developed and its performance characteristics determined by [facility]'s [facility] [place] ([facility]). It has not been cleared or approved by the FDA. -[facility] is regulated under CLIA as qualified to perform high-complexity testing. This test is used for clinical purposes. It should not be regarded as investigational or for research. As Reviewed by: Quin Hill M.D. Ph.D. HENRIK/ap [id number] References: Temi HESTER, Syd A, Joshua R, [...] Receipt: 05/30/2018 Submitted: NARCISO MARINELLI MD Location: [facility] Diagnostic interpretation performed at [facility], [address] [place] [id number]. Normal [facility] Testosteroneon 05-29-2018 Testosterone mass conc 249 ng/dL Normal [id number] [facility] Comment on above: Result Comment: A te stosterone level in the 193-320 ng/dL range with associated clinical symptoms is considered low and may indicate hypogonadism (from NEJM 2010 363:123-135). Results >320 ng/dL are considered normal. Performed By: #### T ESTO ####[facility] [id number] [place], [place] [phone] Vital Signs Date Time Vital Sign Value Performing Clinician Facility 10-08-2024 11:36-0400 Body height 172.72 cm [employer] Phone: [facility] 10-08-2024 11:36-0400 Body mass index (BMI) [Ratio] 29.5 kg/m2 [employer] Work Phone: [facility] 10-08-2024 11:36-0400 Body temperature 98.2 [degF] [employer] Work Phone: [facility] 10-08-2024 11:36-0400 Body weight 88.16 kg [employer] Phone: [facility] 10-08-2024 11:36-0400 Diastolic blood pressure 88 mm[Hg] [employer] Work Phone: [facility] 10-08-2024 11:36-0400 Heart rate 75 /min Frederick House DO Work Phone: [facility] 10-08-2024 11:36-0400 Respiratory rate 18 /min Frederick House DO Work Phone: [facility] 10-08-2024 11:36-0400 SaO2% (BldA) [Mass fraction] 97 % Frederick House DO Work Phone: [facility] 10-08-2024 11:36-0400 Systolic blood pressure 143 mm[Hg] Frederick House DO Work Phone: [facility] 07-01-2024 10:45-0400 Body height 167.6 cm Eda Junior MD Work Phone: [facility] 07-01-2024 10:45-0400 Body mass index (BMI) [Ratio] 32.28 kg/m2 Eda Junior MD Work Phone: [facility] 07-01-2024 10:45-0400 Body weight 90.72 kg Eda Junior MD Work Phone: [facility] 07-01-2024 10:45-0400 Diastolic blood pressure 70 mm[Hg] Eda Junior MD Work Phone: [facility] 07-01-2024 10:45-0400 Heart rate 68 /min Eda Junior MD Work Phone: [facility] 07-01-2024 10:45-0400 Systolic blood pressure 135 mm[Hg] Eda Junior MD Work Phone: [facility] 05-09-2024 09:28-0500 Body height 172.72 cm [facility] 05-09-2024 09:28-0500 Body mass index (BMI) [Ratio] 30.6 kg/m2 [facility] 05-09-2024 09:28-0500 Body temperature 98.4 [degF] [facility] 05-09-2024 09:28-0500 Body weight 91.34 kg [facility] 05-09-2024 09:28-0500 Diastolic blood pressure 86 mm[Hg] [facility] 05-09-2024 09:28-0500 Heart rate 100 /min [facility] 05-09-2024 09:28-0500 Respiratory rate 18 /min [facility] 05-09-2024 09:28-0500 SaO2% (BldA) [Mass fraction] 94 % [facility] 05-09-2024 09:28-0500 Systolic blood pressure 141 mm[Hg] [facility] 01-09-2024 13:47-0400 Body height 172.7 cm Josh Hearn TECHNOLOGIST DEVELOP[employer] Work Phone: [facility] 01-09-2024 13:47-0400 Body mass index (BMI) [Ratio] 31.17 kg/m2 Josh Hearn TECHNOLOGIST DEVELOPMENT Work Phone: [facility] 01-09-2024 13:47-0400 Body temperature 96.21 [degF] Josh Hearn TECHNOLOGIST DEVELOPMENT Work Phone: [facility] 01-09-2024 13:47-0400 Body weight 92.99 kg Josh Hearn TECHNOLOGIST DEVELOPMENT Work Phone: [facility] 01-09-2024 13:47-0400 Diastolic blood pressure 76 mm[Hg] Josh Hearn TECHNOLOGIST DEVELOPMENT Work Phone: [facility] 01-09-2024 13:47-0400 Heart rate 83 /min Josh Hearn TECHNOLOGIST DEVELOPMENT Work Phone: [facility] 01-09-2024 13:47-0400 Respiratory rate 16 /min Josh Hearn TECHNOLOGIST DEVELOPMENT Work Phone: [facility] 01-09-2024 13:47-0400 SaO2% (BldA) [Mass fraction] 98 % Josh Hearn TECHNOLOGIST DEVELOPMENT Work Phone: [place] [id number] 13:47-0400 Systolic blood pressure 138 mm[Hg] Josh Hearn TECHNOLOGIST DEVELOPMENT Work Phone: [facility] 12-28-2023 11:16-0400 Body height 172.72 cm [facility] 12-28-2023 11:16-0400 Body mass index (BMI) [Ratio] 30.1 kg/m2 [facility] 12-28-2023 11:16-0400 Body temperature 98 [degF] [facility] 12-28-2023 11:16-0400 Body weight 89.92 kg [facility] 12-28-2023 11:16-0400 Diastolic blood pressure 92 mm[Hg] [facility] 12-28-2023 11:16-0400 Heart rate 102 /min [facility] 12-28-2023 11:16-0400 Respiratory rate 18 /min [facility] 12-28-2023 11:16-0400 SaO2% (BldA) [Mass fraction] 95 % [facility] 12-28-2023 11:16-0400 Systolic blood pressure 153 mm[Hg] [facility] 12-12-2023 14:42-0400 Body height 172.7 cm Ojsh Hearn TECHNOLOGIST DEVELOPMENT Work Phone: [facility] 12-12-2023 14:42-0400 Body mass index (BMI) [Ratio] 30.11 kg/m2 Josh Hearn TECHNOLOGIST DEVELOPMENT Work Phone: [facility] 12-12-2023 14:42-0400 Body temperature 97.59 [degF] Josh Hearn TECHNOLOGIST DEVELOPMENT Work Phone: [facility] 12-12-2023 14:42-0400 Body weight 89.81 kg Josh Hearn TECHNOLOGIST DEVELOPMENT Work Phone: [facility] 12-12-2023 14:42-0400 Diastolic blood pressure 90 mm[Hg] Josh Hearn TECHNOLOGIST DEVELOPMENT Work Phone: [facility] 12-12-2023 14:42-0400 Heart rate 100 /min Josh Ontiverosk TECHNOLOGIST DEVELOPMENT Work Phone: [facility] Comment on above: 94% [facility] 12-12-2023 14:42-0400 Systolic blood pressure 160 mm[Hg] Josh Escamillatrick TECHNOLOGIST DEVELOPMENT Work Phone: [facility] 11-01-2023 14:44-0400 Body height 172.72 cm [facility] 11-01-2023 14:44-0400 Body mass index (BMI) [Ratio] 30.4 kg/m2 [facility] 11-01-2023 14:44-0400 Body temperature 99.1 [degF] [facility] 11-01-2023 14:44-0400 Body weight 90.94 kg [facility] 11-01-2023 14:44-0400 Diastolic blood pressure 98 mm[Hg] [facility] 11-01-2023 14:44-0400 Heart rate 80 /min [facility] 11-01-2023 14:44-0400 Respiratory rate 18 /min [facility] 11-01-2023 14:44-0400 SaO2% (BldA) [Mass fraction] 95 % [facility] 11-01-2023 14:44-0400 Systolic blood pressure 169 mm[Hg] [facility] 10-15-2023 12:58-0400 Blood Pressure Location EWA VIERA [facility] 10-15-2023 12:58-0400 Diastolic blood pressure 90 mm[Hg] EWA CARRRY [facility] 10-15-2023 12:58-0400 Heart rate 81 /min EWA CARRRY [facility] 10-15-2023 12:58-0400 Respiratory rate 16 /min EWA VIERA [facility] 10-15-2023 12:58-0400 Systolic blood pressure 162 mm[Hg] EWA VIERA [facility] 03-19-2023 12:05-0500 Body height 172.72 cm Myrna Isbell Other [employer] Other 03-19-2023 12:05-0500 Body mass index (BMI) [Ratio] 30.62 kg/m2 Myrna Isbell Other [employer] Other 03-19-2023 12:05-0500 Body temperature 98.9 [degF] Myrna Isbell Other [employer] Other 03-19-2023 12:05-0500 Body weight 91.36 kg Myrna Isbell Other [employer] Other 03-19-2023 12:05-0500 Diastolic blood pressure 104 mm[Hg] Myrna Isbell Other [employer] Other 03-19-2023 12:05-0500 Respiratory rate 18 /min Myrna Isbell Other [employer] Other 03-19-2023 12:05-0500 SaO2% (BldA) [Mass fraction] 96 % Myrna Isbell Other [employer] Other 03-19-2023 12:05-0500 Systolic blood pressure 178 mm[Hg] Myrna Isbell Other [employer] Other 03-14-2023 13:10-0500 Body height 172.72 cm Magnolia Costa Other [employer] Other 03-14-2023 13:10-0500 Body mass index (BMI) [Ratio] 30.41 kg/m2 Magnolia Igor Other [employer] Other 03-14-2023 13:10-0500 Body temperature 100.1 [degF] Magnolia Igor Other [employer] Other 03-14-2023 13:10-0500 Body weight 90.72 kg Magnolia Igor Other [employer] Other 03-14-2023 13:10-0500 Diastolic blood pressure 87 mm[Hg] Magnolia Igor Other [employer] Other 03-14-2023 13:10-0500 Respiratory rate 18 /min Magnolia Igor Other [employer] Other 03-14-2023 13:10-0500 SaO2% (BldA) [Mass fraction] 96 % Magnolia Igor Other [employer] Other 03-14-2023 13:10-0500 Systolic blood pressure 190 mm[Hg] Magnolia Igor Other [employer] Other 10-17-2022 13:35-0400 Blood Pressure Location EWA VIERA [facility] 10-17-2022 13:35-0400 Diastolic blood pressure 112 mm[Hg] EWA MAXIMILIANO [facility] 10-17-2022 13:35-0400 Heart rate 81 /min EWA MAXIMILIANO [facility] 10-17-2022 13:35-0400 Systolic blood pressure 172 mm[Hg] EWA VIERA [facility] 04-16-2022 14:37-0500 Blood Pressure Location [employer] [facility] [place] 10-16-2021 14:30-0400 Blood Pressure Location Murali [employer] [facility] [employer] 10-16-2021 14:30-0400 Diastolic blood pressure 85 mm[Hg] Murali [employer] [facility] [employer] 10-16-2021 14:30-0400 Heart rate 67 /min Murali [employer] [facility] 10-16-2021 14:30-0400 Respiratory rate 16 /min Murali [employer] [facility] 10-16-2021 14:30-0400 Systolic blood pressure 170 mm[Hg] Murali [employer] [facility] [employer] Encounters Encounter Date Encounter Type Care Provider Facility Start: 10-12-2024 End: 10-12-2024 ambulatory EWA VIERA Facility:[facility] Start: 10-12-2024 End: 10-12-2024 Patient encounter procedure [facility] [employer] Start: 10-09-2024 ambulatory EWA VIERA Facility :[facility] Start: 10-08-2024 End: 10-08-2024 ambulatory Frederick Gonzalez DO Work Phone: [facility] Work Phone: Start: 10-08-2024 End: 10-08-2024 Patient encounter procedure Sharon Rodriguez [employer] -[facility] [place] Work Phone: Start: 07-01-2024 End: 07-01-2024 Bamboo flowsheet Eda Junior MD Work Phone: [facility] Start: 07-01-2024 End: 07-01-2024 Bamboo flowsheet Eda Junior MD Work Phone: [facility] Start: 07-01-2024 End: 07-01-2024 Office outpatient new 45 minutes Eda Juinor MD Work Phone: [facility] Comment on above: LINSEY (obstructive sle ep apnea) (Primary Dx); LPRD (laryngopharyngeal reflux disease) Start: 07-01-2024 End: 07-01-2024 ambulatory EDA JUNIOR Not Available Start: 06-10-2024 End: 06-10-2024 ambulatory FREDERICK GONZALEZ Facility:[facility] Start: 05-14-2024 ambulatory DO FREDERICK GONZALEZ Faci lity:[facility] Start: 05-09-2024 End: 05-09-2024 ambulatory [facility] Work Phone: Start: 05-09-2024 End: 05-09-2024 Patient encounter procedure [facility] [place] Work Phone: Start: 03-09-2024 End: 03-09-2024 Bamboo flowsheet Brii Oconnor TECHNOLOGIST DEVELOPMENT Work Phone: [facility] Start: 03-09-2024 End: 03-09-2024 Bamboo flowsheet Brii Pinzon [employer] TECHNOLOGIST DEVELOPMENT Work Phone: [facility] Start: 03-09-2024 End: 03-09-2024 Office outpatient visit 15 minutes Brii B Apling TECHNOLOGIST DEVELOPMENT Work Phone: [facility] Comment on above: Left shoulder pain, unspecified chronicity (Primary Dx); Glenohumeral arthritis, left; Arthritis of left acromioclavicular joint; Impingement of left shoulder Start: 03-09-2024 End: 03-09-2024 ambulatory BRII Pinzon [employer] Not Available Start: 03-05-2024 End: 03-05-2024 Refill Josh Hearn TECHNOLOGIST DEVELOPMENT Work Phone: [facility] Comment on above: Seasonal allergies Start: 02-17-2024 End: 02-17-2024 Bamboo flowsheet Brii Pinzon [employer] TECHNOLOGIST DEVELOPMENT Work Phone: [facility] Start: 02-17-2024 End: 02-17-2024 Bamboo flowsheet Brii Sari Apling TECHNOLOGIST DEVELOPMENT Work Phone: [facility] Start: 02-17-2024 End: 02-17-2024 Office outpatient new 45 minutes Brii Pinzon [employer]pling TECHNOLOGIST DEVELOPMENT Work Phone: [facility] Comment on above: Left shoulder pain, unspecified chronicity (Primary Dx); Glenohumeral arthritis, left; Arthritis of left acromioclavicular joint; Impingement of left shoulder Start: 02-17-2024 End: 02-17-2024 ambulatory BRII B [employer]PL[employer] Not Available Start: 01-16-2024 End: 01-16-2024 ambulatory DO FREDERICK [place] Facility:[facility] Start: 01-09-2024 End: 01-09-2024 Bamboo flowsheet Josh Hearn TECHNOLOGIST DEVELOPMENT Work Phone: [facility] Start: 01-09-2024 End: 01-09-2024 Bamboo flowsheet Josh Hearn TECHNOLOGIST DEVELOPMENT Work Phone: [facility] Start: 01-09-2024 End: 01-09-2024 Office outpatient visit 15 minutes Josh Hearn TECHNOLOGIST DEVELOPMENT Work Phone: [facility] Comment on above: Gordon's palsy (Primar y Dx) Start: 01-09-2024 End: 01-09-2024 ambulatory JOSH HEARN Not Available Start: 12-31-2023 End: 01-03-2024 Emergency department patient visit [facility] Start: 12-28-2023 End: 12-28-2023 ambulatory [facility] Work Phone: Start: 12-28-2023 End: 12-28-2023 Patient encounter procedure [facility] [place] Work Phone: Start: 12-21-2023 End: 12-21-2023 Orders Only Josh Hearn TECHNOLOGIST DEVELOPMENT Work Phone: [facility] Comment on above: Encounter for wellne ss examination in adult (Primary Dx) Start: 12-21-2023 End: 12-21-2023 Patient encounter status Josh Hearn TECHNOLOGIST DEVELOPMENT Work Phone: [facility] Work Phone: Start: 12-12-2023 End: 12-12-2023 Initial preventive medicine new patient 65yrs&> Josh Hearn TECHNOLOGIST DEVELOPMENT Work Phone: [facility] Comment on above: Primary hypertension (CMS/HCC) (Primary Dx); Encounter for wellness examination in adult; Seasonal allergies; Seasonal allergic rhinitis, unspecified trigger; Screening for hyperlipidemia; Screening for diabetes mellitus Start: 12-12-2023 End: 12-12-2023 ambulatory JOSH HEARN Not Available Start: 12-12-2023 End: 12-12-2023 Bamboo flowsheet Josh Ontiverosk TECHNOLOGIST DEVELOPMENT Work Phone: [facility] Start: 12-12-2023 End: 12-12-2023 Bamboo flowsheet Josh Ontiverosk TECHNOLOGIST DEVELOPMENT Work Phone: [facility] Start: 12-12-2023 End: 12-12-2023 Patient encounter status Josh Hearn TECHNOLOGIST DEVELOPMENT Work Phone: [facility] Start: 11-01-2023 End: 11-01-2023 ambulatory [facility] Work Phone: Start: 11-01-2023 End: 11-01-2023 Patient encounter procedure [facility] [place] Work Phone: Start: 10-15-2023 End: 10-15-2023 ambulatory EWA VIERA Facility:[facility] Start: 10-15-2023 End: 10-15-2023 Patient encounter procedure EWA VIERA [facility] Start: 03-19-2023 End: 03-19-2023 ambulatory Myran Is[place] Other [employer] Other Start: 03-19-2023 Office outpatient vi sit 15 minutes Myrna Isbell [facility] [place] Start: 03-15-2023 End: 03-15-2023 ambulatory Magnolia Igor Other [employer] Other Start: 03-15-2023 Telephone encounter Magnolia Igor [facility] [place] Start: 03-14-2023 End: 03-14-2023 ambulatory Magnolia Igor Other [employer] Other Start: 03-14-2023 Office outpatient vi sit 15 minutes Magnolia Igor [facility] [place] Start: 10-17-2022 End: 10-17-2022 Patient encounter procedure EWA Curry MAXIMILIANO [facility] Start: 05-24-2022 End: 05-25-[address] FREDERICK GONZALEZ Facility: Start: 04-16-2022 End: 04-16-2022 Patient encounter procedure Murali SCHRADER [facility] Start: 01-26-2022 End: 01-27-[address] MURALI SCHRADER Facility:[facility] Start: 10-16-2021 End: 10-16-2021 Patient encounter procedure Murali SCHRADER [facility] Start: 09-08-2021 End: 09-09-[address] FREDERICK GONZALEZ Facility:[facility] Start: 09-01-2021 End: 09-02-[address] FREDERICK GONZALEZ Facility:[facility] Start: 06-19-2018 End: 06-20-2018 Patient [facility] Start: 05-29-2018 End: 05-30-2018 Patient encounter procedure [facility]ARCISO [facility]ap[facility] Procedures Date Procedure Procedure Detail Performing Clinician Start: 03-09-2024 Arthrocentesis aspir &/inj major jt/bursa w/o us Brii Pinzon [employer] TECHNOLOGIST DEVELOPMENT Work Phone: Start: 02-17-2024 Arthrocentesis aspir &/inj major jt/bursa w/o us Brii Pinzon [employer] TECHNOLOGIST DEVELOPMENT Work Phone: Start: 02-17-2024 Radex shoulder compl ete minimum 2 views Brii Pinzon [employer] TECHNOLOGIST DEVELOPMENT Work Phone: Start: 09-01-[address] ROBIN GONZALEZ Comment on above: Performed By: #### P SAD #### [facility] [address] [place] [address] Dr. Lazaro Sam Appendectomy Murali SCHRADER Decompression of med trev nerve Murali SCOTT Plan of Treatment Date Care Activity Detail Author Start: 01-08-2025 Pneumococcal Vaccine: 65+ Years (1 of 1 - PCV) Pneumococcal Vaccine: 65+ Years (1 of 1 - PCV) [facility] Comment on above: Postponed from 09/04/2012 (Patient Refus ed) Start: 12-11-2024 Medicare Annual Wellness (AWV) Medicare Annual Wellness (AWV) [facility] Start: 11-30-2024 Influenza vaccination Influenza Vaccine (Season Ended) [facility] Start: 07-01-2024 End: 07-01-2024 Patient encounter procedure 07/01/2024 10:50 AM EDT Office Visit [facility] [address] [place] [address] Eda Junior MD [address] [place] [address] Arrived [facility] Comment on above: Arrived Start: 03-12-2024 End: 03-12-2024 Patient encounter procedure 03/12/2024 3:30 PM EST Office Visit [facility] [address] [place] [phone] Josh Hearn NP [address] [place] [phone] [facility] Start: 03-09-2024 End: 03-09-2024 Patient encounter procedure [facility] Comment on above: Left shoulder pain, unspecified chronici ty (Primary Dx); Glenohumeral arthritis, left; Arthritis of left acromioclavicular joint; Impingement of left shoulder Start: 03-05-2024 Influenza vaccination Influenza Vaccine (#1) [facility] Comment on above: Postponed from 12/01/2023 (Patient Refus ed) Start: 01-09-2024 End: 01-09-2024 Patient encounter procedure 01/09/2024 2:00 PM EDT Office Visit [facility] [address] [place] [phone] Josh Hearn NP [address] [place] [phone] Arrived [facility] Comment on above: Arrived Start: 12-21-2023 End: 12-20-2024 25-hydroxyvitamin D3 [Mass/volume] in Serum or Plasma Vitamin D 25 hydroxy Lab Routine Encounter for wellness examination in adult Expected: 12/21/2023 (Approximate), Expires: 12/20/2024 [facility] Work Phone: Comment on above: Expected: 12/21/2023 (Approximate), Expi res: 12/20/2024 Start: 12-13-2023 End: 12-12-2024 CBC W Auto Differential panel - Blood CBC and differential Lab Routine Primary hypertension (CMS/HCC) Expected: 12/13/2023 (Approximate), Expires: 12/12/2024 [facility] Comment on above: Expected: 12/13/2023 (Approximate), Expi res: 12/12/2024 Start: 12-13-2023 End: 12-12-2024 Comprehensive metabolic 2000 panel - Serum or Plasma Comprehensive metabolic panel Lab Routine Primary hypertension (CMS/HCC) Screening for diabetes mellitus Expected: 12/13/2023 (Approximate), Expires: 12/12/2024 [facility] Comment on above: Expected: 12/13/2023 (Approximate), Expi res: 12/12/2024 Start: 12-13-2023 End: 12-12-2024 Hemoglobin A1c/Hemoglobin.total in Blood Hemoglobin A1c Lab Routine Screening for diabetes mellitus Expected: 12/13/2023 (Approximate), Expires: 12/12/2024 [facility] Comment on above: Expected: 12/13/2023 (Approximate), Expi res: 12/12/2024 Start: 12-13-2023 End: 12-12-2024 Lipid 1996 panel - Serum or Plasma Lipid panel Lab Routine Primary hypertension (CMS/HCC) Screening for hyperlipidemia Expected: 12/13/2023 (Approximate), Expires: 12/12/2024 [facility] Comment on above: Expected: 12/13/2023 (Approximate), Expi res: 12/12/2024 Start: 12-13-2023 End: 12-12-2024 TSH W/REFLEX TO FT4 TSH W/REFLEX TO FT4 Lab Routine Primary hypertension (CMS/HCC) Expected: 12/13/2023 (Approximate), Expires: 12/12/2024 [facility] Work Phone: Comment on above: Expected: 12/13/2023 (Approximate), Expi res: 12/12/2024 Start: 12-12-2023 End: 12-12-2023 Patient encounter procedure 12/12/2023 3:00 PM EDT Office Visit [facility] [address] [place] [address] Josh Hearn, LINA [address] [place] [address] Arrived [facility] Comment on above: Arrived Start: 12-01-2023 Influenza vaccination Influenza Vaccine (#1) [facility] Start: 09-04-2012 Pneumococcal Vaccine: 65+ Years (1 of 1 - PCV) Pneumococcal Vaccine: 65+ Years (1 of 1 - PCV) [facility] Start: 1945 Medicare Annual Wellness (AWV) Medicare Annual Wellness (AWV) [facility] Immunizations Immunization Date Immunization Notes Care Provider Fa cility 2023 ABRYSVO - Respirator y syncytial virus (RSV), vaccine, bivalent, protein subunit RSV prefusion F, diluent reconstituted, 0.5 mL, PF Josh Hearn NP Work Phone: [facility] 03-16-2021 SARS-CoV-2 (COVID-19 ) mRNA BNT-162b2 [facility] Comment on above: Result Comment: 2022: [id number] 03-01-2021 SARS-CoV-2 (COVID-19 ) mRNA BNT-162b2 [employer] [facility] 06-29-2020 SARS-CoV-2 (COVID-19 ) mRNA BNT-162b2 [employer] [facility] 06-24-2020 SARS-CoV-2 (COVID-19 ) mRNA-1273 vaccine Murali RICE [facility] 06-08-2020 SARS-CoV-2 (COVID-19 ) mRNA BNT-162b2 vax Murali SCHRADER [facility] 06-03-2020 SARS-CoV-2 (COVID-19 ) mRNA-1273 vaccine Murali RICE [facility] 04-10-2018 tetanus toxoid, reduced diphtheria toxoid, and acellular pertussis vaccine, adsorbed Murali SCHRADER [facility] 10-09-2012 pneumococcal vaccine , unspecified formulation Josh Hearn NP Work Phone: [facility] Payers Date Payer Category Payer Unknown [facility] [id number] 2023-Present [address] [facility] [place] [address] [id number] 2023 Unknown [id number] 2019 Private Health Insurance [id number] 2019 Unknown [id number] 2018 Medicare [id number] 2012 Medicare [id number] 1959 Medicare [id number] 1959 Unknown [id number] 1947 Unknown [id number] 1947 Unknown [id number] 1947 Unknown [id number] 1947 Unknown [id number] .593 1945 Unknown [id number] 2.16.840.1.027425.3.579.2 .718 1945 Unknown [id number] 2.16.840.1.105389.3.579.2 .718 1945 Unknown [id number] 2.840.1.014379.3.579.2 .718 1945 Unknown [id number] 2.840.1.008552.3.579.2 .1259 1945 Unknown [id number] 2.840.1.335568.3.579.2 .1259 1945 Unknown [id number] 2.840.1.550142.3.579.2 .1259 1945 Unknown [id number] 2.840.1.234652.3.579.2 .1259 1945 Unknown [id number] 2.840.1.452555.3.579.2 .1259 1945 Unknown [id number] 2.16840.1.735582.3.579.2 .1259 1945 Unknown [id number] 2.16840.1.491474.3.579.2 .727 1945 Unknown [id number] 2.16840.1.244106.3.579.2 .727 Unknown [id number] 2.840.1.780938.19 Social History Date Type Detail Facility Start: 04-17-2021 End: 10-12-2024 Tobacco smoking status Never smoked tobacco (finding) [facility] Tobacco smoking status Never [facility] Start: 12-12-2023 End: 03-09-2024 Sex Assigned At Male [facility] Start: 1945 Sex Assigned At Male [facility] Start: 12-12-2023 Tobacco use and exposure Smokeless tobacco non-user [facility] Start: 12-12-2023 End: 07-01-2024 Alcoholic beverage intake Lifetime non-drinker (finding) [facility] Start: 12-12-2023 End: 03-09-2024 History of Social function [facility] Start: 1945 Sex assigned at Not on file [facility] Tobacco smoking stat [facility] Tobacco smoking consumption unknown [facility] Start: 09-27-2018 End: 05-09-2024 Sex Male (finding) [facility] Sexual Orientation [facility] NEGATED: Highlighted rowStart: NINF History of tobacco use Passive smoker [facility] Functional Status Date Assessment Result Facility 10-15-2023 Functional Status N/A [facility] 10-17-2022 Functional Status N/A [facility] 04-16-2022 Functional Status N/A [facility] 10-16-2021 Functional Status N/A [facility] Clinical Notes 10-16-2021 to 10-12-2024 Eda Junior MD - 07/01/2024 10:50 AM Gume Oconnor NP - 03/09/2024 10:00 AM Andry Oconnor NP - 02/17/2024 11:15 AM Samuel Hearn NP - 01/15/2024 8:40 AM EDT Note Date & Type Note Facility 10-12-2024 Hospital Discharge instructions Patient Education 10/12/2024 13:29:44 Benign Prostatic Hyperplasia Benign Prostatic Hyperplasia Benign prostatic hyperplasia (BPH) is an enlarged prostate gland that is caused by the normal aging process. The prostate may get bigger as a man gets older. The condition is not caused by cancer. The prostate is a walnut-sized gland that is involved in the production of semen. It is located in front of the rectum and below the bladder. The bladder stores urine. The urethra carries stored urine out of the body. An enlarged prostate can press on the urethra. This can make it harder to pass urine. The buildup of urine in the bladder can cause infection. Back pressure and infection may progress to bladder damage and kidney (renal) failure. What are the causes? This condition is part of the normal aging process. However, not all men develop problems from this condition. If the prostate enlarges away from the urethra, urine flow will not be blocked. If it enlarges toward the urethra and compresses it, there will be problems passing urine. What increases the risk? This condition is more likely to develop in men older than 50 years. What are the signs or [...] urethra. Follow these instructions at home: Take gwil-itb-iwsxyig and prescription medicines only as told by your health care provider. Monitor your symptoms for any changes. Contact your health care provider with any changes. Avoid drinking large amounts of liquid before going to bed or out in public. Avoid or reduce how much caffeine or alcohol you drink. Give yourself time when you urinate. Keep all follow-up visits. This is important. Contact a health care provider if: You have unexplained back pain. Your symptoms do not get better with treatment. You develop side effects from the medicine you are taking. Your urine becomes very dark or has a bad smell. Your lower abdomen becomes distended and you have trouble passing urine. Get help right away if: You have a fever or chills. You suddenly cannot urinate. You feel light-headed or very dizzy, or you faint. There are large amounts of blood or clots in your urine. Your urinary problems become hard to manage. You develop moderate to severe low back or flank pain. The flank is the side of your body between the ribs and the hip. These symptoms may be an emergency. Get help right away. Call 911. Do not wait to see if the symptoms will go away. Do not drive yourself to the hospital. Summary Benign prostatic hyperplasia (BPH) is an enlarged prostate that is caused by the normal aging process. It is not caused by cancer. An enlarged prostate can press on the urethra. This can make it hard to pass urine. This condition is more likely to develop in men older than 50 years. Get help right away if you suddenly cannot urinate. This information is not intended to replace advice given to you by your health care provider. Make sure you discuss any questions you have with your health care provider. Document Revised: 10/04/2021 Document Reviewed: 10/04/2021 [employer] Patient Education 2023 NormOxys. Follow Up Care 04/15/2024 11:27:11 With:MAXIMILIANO MAIER, EWA Zapien, URL Address: [address] [place] [address]. [place] [address] When:Within 1 Year(s) [facility] 10-12-2024 Evaluation + Plan note Diagnostic Tests PendingTestosterone Level Total 10/12/24Hemoglobin and Hematocrit 10/19/24Lipid Panel 10/19/24Hepatic Function Panel 10/19/24PSA Screen, Total 10/19/24 [facility] 07-14-2025 Note Patient Education Urology Benign Prostatic Hyperplasia Benign prostatic hyperplasia (BPH) is an enlarged prostate gland that is caused by the normal aging process. The prostate may get bigger as a man gets older. The condition is not caused by cancer. The prostate is a walnut-sized gland that is involved in the production of semen. It is located in front of the rectum and below the bladder. The bladder stores urine. The urethra carries stored urine out of the body. An enlarged prostate can press on the urethra. This can make it harder to pass urine. The buildup of urine in the bladder can cause infection. Back pressure and infection may progress to bladder damage and kidney (renal) failure. What are the causes? This condition is part of the normal aging process. However, not all men develop problems from this condition. If the prostate enlarges away from the urethra, urine flow will not be blocked. If it enlarges toward the urethra and compresses it, there will be problems passing urine. What increases the risk? This condition is more likely to develop in men older than 50 years. What are the signs or symptoms? Symptoms of this condition include: ??? Getting up often during the night to urinate. ??? Needing to urinate frequently during the day. ??? Difficulty starting urine flow. ??? Decrease in size and strength of your urine stream. ??? Leaking (dribbling) after urinating. ??? Inability to pass urine. This needs immediate treatment. ??? Inability to completely empty your bladder. ??? Pain when you pass urine. This is more common if there is also an infection. ??? Urinary tract infection (UTI). How is this diagnosed? This condition is diagnosed based on your medical history, a physical exam, and your symptoms. Tests will also be done, such as: ??? A post-void bladder scan. This measures any amount of urine that may remain in your bladder after you finish urinating. ??? A digital rectal exam. In a rectal exam, your health care provider checks your prostate by putting a lubricated, gloved finger into your rectum to feel the back of your prostate gland. This exam detects the size of your gland and any abnormal lumps or growths. ??? An exam of your urine (urinalysis). ??? A prostate specific antigen (PSA) screening. This is a blood test used to screen for prostate cancer. ??? An ultrasound. This test uses sound waves [...] severity of your condition. Treatment may include: ??? Observation and yearly exams. This may be the only treatment needed if your condition and symptoms are mild. ??? Medicines to relieve your symptoms, including: ? Medicines to shrink the prostate. ? Medicines to relax the muscle of the prostate. ??? Surgery in severe cases. Surgery may include: ? Prostatectomy. In this procedure, the prostate tissue is removed completely through an open incision or with a laparoscope or robotics. ? Transurethral resection of the prostate (TURP). In this procedure, a tool is inserted through the opening at the tip of the penis (urethra). It is used to cut away tissue of the inner core of the prostate. The pieces are removed through the same opening of the penis. This removes the blockage. ? Transurethral incision (TUIP). In this procedure, small cuts are made in the prostate. This lessens the prostate's pressure on the urethra. ? Transurethral microwave thermotherapy (TUMT). This procedure uses microwaves to create heat. The heat destroys and removes a small amount of prostate tissue. ? Transurethral needle ablation (TUNA). This procedure uses radio frequencies to destroy and remove a small amount of prostate tissue. ? Interstitial laser coagulation (ILC). This procedure uses a laser to destroy and remove a small amount of prostate tissue. ? Transurethral electrovaporization (TUVP). This procedure uses electrodes to destroy and remove a small amount of prostate tissue. ? Prostatic urethral lift. This procedure inserts an implant to push the lobes of the prostate away from the urethra. Follow these instructions at home: ??? Take kbbi-ptj-tdxvsjz and prescription medicines only as told by your health care provider. ??? Monitor your symptoms for any changes. Contact your health care provider with any changes. ??? Avoid drinking large amounts of liquid before going to bed or out in public. ??? Avoid or reduce how much caffeine or alcohol you drink. ??? Give yourself time when you urinate. ??? Keep all follow-up visits. This is important. Contact a health care provider if: ??? You have unexplained back pain. ??? Your symptoms do not get (more content not included)... [facility] 07-01-2024 History of Present illness Narrative Subjective [...] the titrated pressure documented in this encounter [facility] 03-09-2024 History of Present illness Narrative Associated [...] tolerated, f/U prn documented in this encounter [facility] 02-17-2024 History of Present illness Narrative Associated [...] arthritis of the glenohumeral joint. 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 Was seen in Ed on 12/31/23; Dx with [place] Palsy. Had a sinus infection the weeks [...] for Follow-up. HPI Was in ED for [place] Palsy on 12/31/2023- Had a sinus infection [...] seen in Ed on 12/31/23; Dx with [place] Palsy. Had a sinus infection the weeks [...] Pt verbalized understanding. documented in this encounter [facility] 12-13-2023 History of Present illness Narrative Associated [...] for Establish Care (/). HPI Specialists: Neurology- [facility] Urology- Dr. Viera HTN: Pt changed [...] 80 MG tablet documented in this encounter [facility] 12-12-2023 Instructions Josh Hearn NP - 12/12/2023 [...] sleep per night. documented in this encounter [facility] 10-15-2023 Hospital Discharge instructions Patient Education 10/15/2023 [...] therapy. Follow these instructions at home: Take rvxn-pzy-thsybgp and prescription medicines only as told by [...] provider. Document Revised: 11/17/2020 Document Reviewed: 11/17/2020 [employer] Patient Education 2022 NormOxys. Follow Up Care 10/17/2022 15:04:57 With:EWA VIERA PA-C, URL Address: [address] [place] [address]. [place] [address] [phone] When: Unknown Comments:1 year w/ PSA, LFTs, Lipids, H&H, total T level [facility] 10-15-2023 Evaluation + Plan note Diagnostic Tests PendingTestosterone Level Total 10/15/23epatic Function Panel 10/15/23Lipid Panel 10/15/23emoglobin and Hematocrit 10/15/23PSA Total 10/15/23 [facility] 10-15-2023 Note Patient Education Urology Hypogonadism, [...] Follow these instructions at home: ? Take ozvu-zfo-pqcacyq and prescription medicines only as told by [...] provider. Document Revised: (more content not included)... [facility] 03-19-2023 Evaluation note Encounter Date Diagnosis Assessment [...] today 120s/80s, he reports white coat syndrome. [facility] 12-14-2023 Evaluation note* Encounter Date Diagnosis [...] (suspected) exposure to covid-19 (ICD-10 - Z20.822) [facility] 07-19-2023 Hospital Discharge instructions Patient Education [...] therapy. Follow these instructions at home: Take bubi-ung-vdjzftn and prescription medicines only as told by [...] provider. Document Revised: 11/17/2020 Document Reviewed: 11/17/2020 [employer] Patient Education 2022 NormOxys. Follow Up Care 08/31/2022 12:38:12 With:MAXIMILIANO MAIER, EWA Zapien, URL Address: [address] [place] [address] When: Unknown [facility] 01-16-2023 Hospital Discharge instructions Patient Education 04/16/2022 [...] 06/24/2001 Document Revised: 07/09/2019 Document Reviewed: 02/11/2017 [employer] Patient Education 2019 NormOxys. Follow Up Care 10/16/2021 15:07:22 With:SCOTT HOANG, Murali Blancas, URL Address: [address] [place] [address]- When:6 months Comments:PSA & testosterone [facility] 07-18-2022 Hospital Discharge instructions Patient Education [...] urethra. Follow these instructions at home: Take ofjj-zmt-ckzityy and prescription medicines only as told by [...] 03/18/2006 Document Revised: 02/10/2019 Document Reviewed: 04/22/2017 [employer] Patient Education 2020 NormOxys. Follow Up Care 04/17/2021 14:02:48 With:Murali SCHRADER MD, URL Address: [address] [place] [address]- When:3 months Comments:Testosterone level [facility] evaluation + Plan note Future Appointments Appointment Date:04/16/2022 02:15:00 PM Scheduled Provider:Murali SCHRADER MD Location:[facility] Appointment Type:URO Office Visit Diagnostic Tests Pending * Testosterone Level Total 10/16/21 [facility] Evaluation + Plan note Future Appointments Appointment Date:10/15/2022 02:15:00 PM Scheduled Provider:Murali SCHRADER MD Location:[facility] Appointment Type:URO Office Visit Diagnostic Tests Pending * PSA Total 04/16/22 * Testosterone Level Total 04/16/22 [facility] evaluation + Plan note Future Appointments Appointment Date:10/23/2023 01:20:00 PM Scheduled Provider:EWA VIERA PA-C Location:[facility] Appointment Type:URO Office Visit Diagnostic Tests Pending * PSA Total 08/31/23 * Testosterone Level Total 10/17/22 * Hemoglobin and Hematocrit 08/31/23 * Hepatic Function Panel 08/31/23 * Lipid Panel 08/31/23 [facility] evaluation noteNo [facility] [employer] Other evaluation note* Diagnosis Onset Date Resolution Status Bee sting reaction acute [facility] Work Phone: evaluation note* Diagnosis Onset Date Resolution Status Bee sting reaction acute Acute maxillary sinusitis, unspecified acute [facility] Work Phone: evaluation note* Diagnosis Primary hypertension [...] Date Bronchitis acute May 09, 2024 9:08am [facility] Work Phone: Evaluation note* Diagnosis Primary hypertension [...] mention of obstruction [facility] Work Phone: History general Narrative - Reported* Type Description Date Medical History glaucoma Medical History insomnia Medical History GERD (gastroesophageal reflux di sease) Medical History Hypothyroidism Surgical History tonsillectomy Surgical History appendectomy Surgical History carpal tunnel release right Hospitalization History see above [facility] Hospital course Narrative No data available for this section [facility] [employer] [facility] note No data available for this section [facility] Reason for referral (narrative)No reason for referral information availableF[facility] Work Phone: Summary Purpose Family History No Family History [...] Date Bronchitis May 09, 2024 9 :08am Chief Complaint Admit Date Bug Bites on Legs October 08, 2024 11:2 8am Additional Source Comments (unrecognized sect ion and content) No Status Records FoundNo Status Records FoundNo Status Records FoundNo Status Records FoundNo Status Records FoundNo Status Records Found INFORMATION SOURCE (unrecogn ized section and content) DATE CREATED AUTHOR 06/20/2018 [facility] DATE CREATED AUTHOR AUTHOR'S ORGANIZ ATION 05/29/2022 [facility] DATE CREATED AUTHOR AUTHOR'S ORGANIZ ATION 01/05/2024 [facility] DATE CREATED AUTHOR AUTHOR'S ORGANIZ ATION 06/13/2024 [facility] DATE CREATED AUTHOR AUTHOR'S ORGANIZ ATION 07/04/2024 [facility] EPIC DATE CREATED AUTHOR AUTHOR'S ORGANIZ ATION 10/14/2024 Aidan Solomon [facility] Care Team (unrecognized sect ion and content) [...] December 28, 2023 End: December 28, 2023 [facility] Relationship Specialty Start Date End Date Roddy Orona MD [address] [place] [phone] PCP - General Family Medicine 12/09/23 Josh Hearn NP [address] [place] [phone] Nurse Practitioner Family Medicine 12/09/23 [facility] Teacher Relationship Specialty Start Date End Date Roddy Orona MD [address] [place] [phone] PCP - General Family Medicine 12/09/23 Josh Hearn NP [address] [place] [phone] Nurse Practitioner Family Medicine 12/09/23 [facility] [employer] Teacher Relationship Specialty Start Date End Date Frederick Gonzalez MD [address] [facility] [place] [address] PCP - General Family Medicine 02/17/24 [facility] [employer] Teacher Relationship Specialty Start Date End Date Frederick Gonzalez MD [address] [facility] [place] [address] PCP - General Family Medicine 02/17/24 [facility] Teacher Relationship Specialty Start Date End Date Frederick Gonzalez MD [address] [facility] [place] [address] PCP - General Family Medicine 02/17/24 [facility] [employer] Teacher Relationship Specialty Start Date End Date Roddy Orona MD [address] [place] [phone] PCP - General Family Medicine 12/09/23 Josh Hearn NP [address] [place] [phone] Nurse Practitioner Family Medicine 12/09/23 [facility] Teacher Relationship Specialty Start Date End Date Roddy Orona MD [address] [place] [phone] PCP - General Family Medicine 12/09/23 Josh Hearn NP [address] [place] [phone] Nurse Practitioner Family Medicine 12/09/23 [facility] [employer] Teacher Relationship Specialty Start Date End Date Frederick Gonzalez MD [address] [facility] [place] [address] PCP - General Family Medicine 02/17/24 [facility] [employer] Teacher Relationship Specialty Start [place] [address] [place] [address] PCP - General Family Medicine 02/17/24 [facility] [employer] Teacher Relationship Specialty Start Date End Date Roddy Orona MD [address] [facility] [place] [address] PCP - General Family Medicine 12/09/23 Josh Hearn NP [address] [facility] [place] [address] Nurse Practitioner Family Medicine 12/09/23 Team Status: Active Member Role Status Dates Frederick Gonzalez DO Primary Care Provider Active Team Status: Inactive Member Role Status Dates Frederick Gonzalez DO Primary Care Provider Active Start: May 09, 2024 End: May 09, 2024 Magnolia Costa APRN Attending Provider Active S tart: May 09, 2024 End: May 09, 2024 [facility] Teacher Relationship Specialty Start Date End Date Frederick Gonzalez MD [address] [place] [address] PCP - General Family Medicine 02/17/24 [facility] Teacher Relationship Specialty Start [place] [address] [place] [address] PCP - General Family Medicine 02/17/24 Team Status: Inactive Member Role Status Dates Frederick Gonzalez DO Primary Care Provider Active Start: October 08, 2024 End: October 08, 2024 Sharon Rodriguez APRN Attending Provider Active Start: October 08, 2024 End: October 08, 2024 REASON FOR VISIT (unrecogniz ed section [...] BE BASED ON THE PRIMARY CLINICAL RECORDS. [facility]. provides no warranty or guarantee of the accuracy or completeness of information in this document.
== END 2024-11-16 11:20 | disposition home or self-care (01) ==
LOC: RAD 11:19
PROVIDERS: PCP Family Medicine; Visit Provider Orthopaedic Surgery Orthopaedic Trauma
DX: M25.512 Pain in left shoulder (principal); M19.012 Primary osteoarthritis, left shoulder
CPT/HCPCS: 73030

== ENCOUNTER 2025-02-08 11:53 | Outpatient (OUT) | payer MEDICARE, OTHER, SELFPAY ==
--- OUTSIDE RECORDS SUMMARY | 2025-02-08 11:57 | XMS_ITS | Clinical Summary ---
Author Organization [facility] Healthcare Address [address] [place] [address] Care Team Providers Care Geology Scientist Name Role Phone House, Frederick Bradley MD Primary Care Provider [phone] Allergies No known active allergies Medications MedicationSigDispense QuantityRefillsLast FilledStart DateEnd DateStatus tadalafil (Cialis) 5 MG tablet Take 5 mg by mouth DailyActive zolpidem CR (Ambien CR) 12.5 MG ER tablet Take 12.5 mg by mouth as needed at bedtime for sleep Do not crush, chew, or split.Active timolol (Timoptic) 0.5 % ophthalmic solution Administer 1 drop into both eyes DailyActive cholecalciferol (Vitamin D3) 200 Unit tablet split tablet Take by mouthActive valsartan (Diovan) 80 MG tablet Indications:Primary hypertensionTake 1 tablet (80 mg) by mouth at bedtime 90 tablet 4Active fluticasone (Flonase) 50 MCG/ACT nasal spray Indications:Seasonal allergiesAdminister 1-2 sprays into each nostril Daily Shake gently. Before first use, prime pump. After use, clean tip and replace cap. 16 g 4Active albuterol (ProAir Digihaler) 90 mcg/act breath-activated inhaler (w/ sensor) 0 Refill(s)5Active ALPRAZolam (Xanax) 0.5 MG tablet 0.5 mg5Active lisinopril 10 MG tablet Take 10 mg by mouth in the morning.Active temazepam (Restoril) 30 MG capsule Take by mouth Daily as neededActive testosterone cypionate (Depo-Testosterone) 200 MG/ML injection testosterone cypionate 200 mg/mL intramuscular oilActive tiZANidine (Zanaflex) 4 MG capsule 0 Refill(s)5Active omeprazole (PriLOSEC) [address] capsule Indications:LPRD (laryngopharyngeal reflux disease)Take 1 capsule (40 mg) by mouth in the morning. Take before meals. Do not crush or chew.. 90 capsule 5Active famotidine (Pepcid) 20 MG tablet Indications:LPRD (laryngopharyngeal reflux disease)Take 1 tablet (20 mg) by mouth at bedtime 90 tablet 5Active Active Problems ProblemNoted DateDiagnosed DateChronic renal zxxdfjf0207/01/2024GERD without drwpbtesumc73/02/9802Bkelhcqt25/02/3928Gdxzovwl01/02/2025Osteoarthritis 07/01/20248367Veyluptfh04/02/2025OSA on CPAP07/01/2024ell's palsy01/09/2024 Assessment & Plan (01/15/2024 8:41 AM EDT): Developed right sided facial asymmetry. Was seen in [place] on 12/31/23; Dx with [place] Palsy. Had a sinusinfection the weeks prior; Had taken Azythromycin on [...] from provider first. Pt verbalized understanding. Primary lzyupvwllqse83/13/2024 Assessment & Plan (12/13/2023 12:47 PM EDT): [...] medication regimen at next visit. Screening for zjvebtrrxsyzfc54/13/2024Screening for diabetes ypuqcgpd70/13/2024 Zlyatktxd66/12/8511Rrgpmrcfuckyor99/12/2024symptomatic microscopic hematuria 12/12/2023MI 30.0-30.9,adult12/12/2023PH with urinary wytavdtulsv19/12/2024 Male zicamoyigbuf04/12/2024Urinary pzswvjvag44/12/2024Encounter to establish care12/12/2023Encounter for wellness examination in adult12/12/2023Seasonal allergic jlsbdnur93/12/2024 Assessment & Plan (12/13/2023 12:50 PM EDT): Ringing in ears has been ongoing for several years. Admits: Sinus congestion Runny nose Post nasal drip Initiated Flonase and cetirizine for allergy symptoms. Advised pt to continue this regimen, if no relief by next OV we can consider next steps such as ENT referral for tinnitus. Wehzrlebjevgwx78/28/2019 Immunizations ImmunizationAdministration DatesNext DueABRYSVO - Respiratory syncytial virus (RSV), vaccine, bivalent, protein subunit RSV prefusion F, diluent reconstituted, 0.5 mL, PF2023Moderna SARS-CoV-2 Teaoyxqzbnv44/26/2021, 1Pneumococcal, Rokcbmhkjaj01/11/4630Wrsm48/10/2019 Family History Medical HistoryRelationNameCommentsNo Known ProblemsFatherNo Known Problems MotherRelationNameStatusCommentsFatherDeceasedMotherDeceased Social History Tobacco UseTypesPacks/DayYears UsedDateSmoking Tobacco: NeverPassive Smoke Exposure: NeverSmokeless Tobacco: Never Tobacco Cessation:Counseling Given: Not Answered Alcohol UseStandard Drinks/WeekCommentsNever0 (1 standard drink = 0.6 oz pure alcohol)PHQ-2AnswerDate RecordedPatient Health Questionnaire-2 Eklkh805 Sex and Gender InformationValueDate RecordedSex Assigned at BirthNot on file Legal OggWrub9906/13/2022 6:46 PM EDTGender IdentityNot on fileSexual Orientation Not on file Last Filed Vital Signs Vital SignReadingTime TakenCommentsBlood Izdnuvwm950/7004 10:45 AM EDT Avwuo2541 10:45 AM VCDPaouoapzzrc95.7 ??C (96.2 ??F)01/09/2024 1:47 PM EDTRespiratory Qmmt1252 1:47 PM EDTOxygen Hyxdfmrdpk94%01/09/2024 1:47 PM EDTInhaled Oxygen Concentration--Wbigen72.7 kg (200 lb)07/01/2024 10:45 AM XTVDapkaf658.6 cm (5' 6 )07/01/2024 10:45 AM EDTBody Mass Index32.28007/01/2024 10:45 AM EDT Plan of Treatment Health MaintenanceDue DateLast DoneCommentsPneumococcal Vaccine: 65+ Years (1 of 1 - PCV)COVID-19 Vaccine (2024- season)2024 03/16/2021, 06/29/2020, 06/24/2020, Additional history existsInfluenza Vaccine (#1)11/30/2024 [place] [phone] Care Teams Team MemberRelationshipSpecialtyStart DateEnd Date Frederick Arias MD [facility] [place] [address] PCP - GeneralFamily Hkoqumaz16/18/24
--- OUTSIDE RECORDS SUMMARY | 2025-02-08 11:57 | XMS_ITS | Continuity of Care Document ---
Author Organization [facility] Address [address] [place] [address] Phone Care Team Providers Care Tip Stretcher Name Role Phone Frederick Arias DO Primary Care Provider [phone] Jun Ayala DO Attending Provider [phone] Eloy Garcia MD Attending Provider Care Teams Patient Care Team Team Status: Active Member Role/Relationship Status Dates Frederick Arias DO Primary Care Provider Active Visit Care Team Team Status: Inactive Member Role/Relationship Status Dates Frederick Arias DO Primary Care Provider Active Start: November 16, 2024 End: November 16, 2024Jukellie Ayala DOAttarin ProviderActiveStart: November 16, 2024 End: November 16, 2024 Patient Care Team Team Status: Inactive Member Role/Relationship Status Dates Frederick Arias DO Primary Care Provider Active Start: December 24, 2024 End: December 24, 2024Damary ellen Garcia MDAttarin ProviderActiveStart: December 24, 2024 End: December 24, 2024 Chief Complaint and Reason for Visit Chief Complaint Admit Date [facility] SHOULDER PAIN NX November 16, 2024 11:03am G47.33 December 24, 2024 1:32pm Reason for Visit Admit Date Primary osteoarthritis, left shoulder Au carla 2024 11:03am Central apnea December 24, 2024 1:32pm Chronic insomnia December 24, 2024 1:32pm Hypnotic dependence December 24, 2024 1:32pm Obstructive sleep apnea December 24, 2024 1:32pm Allergies, Adverse Reactions, Alerts Allergen Type Severity Reaction Last Updated Verified Status No Known Allergies Allergy Unknown November 16, 2024 11:06amYesActive Social History Smoking Status Status Start Date End Date Date of Observa tion Never smoked tobacco (finding) May 09, 2024 8:31am Observation Status Observation Response Date of Response Legal Sex Male (finding) Sex Assigned At [facility] 1945 Family History Relationship Condition Age at Onset Recorded Date/T mason father Unknown motherDeceasedUnknown Problems Active Problems Problem Diagnosis/Recorded Date Onset Date Stat us Hypnotic dependence December 24, 2024 2:24pm Unknow n Active Obstructive sleep apnea December 24, 2024 2:05pm Un known Active Primary osteoarthritis, left shoulder November 16 11:10am Unknown Active Acute maxillary sinusitis, unspecified December 28, 2023 10:42am Unknown Active Central apnea December 24, 2024 2:05pm Unknown Active Chronic insomnia December 24, 2024 2:05pm Unknown Active Bee sting reaction November 01, 2023 2:13pm Unknown Active Bronchitis May 09, 2024 9:56am Unknown Ac tive Medications Medication Status Dose Units Route Directions Qty Days Refills S tart Date Stop Date End Date Reason(s) Instructions Adherence Zolpidem 12.5 mg tablet,ext release multiphase A ctive MGPOAugust 2023 11:00pmComplies with drug therapyTestosterone Cypionate 100 mg/mL jbfSocpcr78BRUL.L8yeekYobzbj 2023 11:00pmComplies with drug therapy Timolol 0.5 % quujhAjexvvfxikfa1LMQEBBAX-UVERNdnykSuanqt 2023 11:00pm December 28, 2023 10:22amValsartan 40 mg zetvkdUfzrhxovlwsl17GXSMEdjjyInqdza 2023 11:00pmSept2023 10:22amOmeprazole 10 mg capsule,delayed release(DR/EC)Optikibhszia28WERHBtvtlElxuov 2023 11:00pmDecember 24, 2024 1:08pmMethylprednisolone (Medrol (Jean-Claude)) 4 mg tablets,dose packDiscontinued0 POper package sixccruidp120Umntqi 2023 11:00pmSept2023 10:19am PO PER PKG DIRValsartan 40 mg jysaiyZbthalxptqwp70VWVMWofgoPdpnkfipu 2023 10:20amSeptember 2023 10:22amPrednisone 20 mg ezyxcqPwnlphwqhnpz81ETDM Qlyiz230Zfwuxngi 2024 12:00amSeptember 2024 1:07pmAlbuterol Sulfate 90 mcg/actuation HFA aerosol ylbyywsFgbuif9WXYWUQEHXPHNOUQOPE 4-6 HOURS as needed for shortness of breath or wheezing6.70February 2024 12:00amComplies with drug therapyBenzonatate 100 mg dwvfzzrKvbomfvfoxnx100PVPIHqnrs times daily as needed for krxmm53Todwcocu 2024 12:00amSept2024 1:08pm Prednisone 10 mg xpaialDzmlkfsjdlho53CAWLMs Dnfrptvz3274Imek 2024 11:00pm December 24, 2024 1:07pm4 tablets x 3 days, 2 tablets x 3 days, 1 tablet x 3 daysLoratadine (Allergy Relief (Loratadine)) 10 mg btpoalIlrzrc73FXWLXyvow December 27, 2023 11:00pmComplies with drug therapyFluticasone Propionate 50 mcg/actuation spray,suspensionActiveINTRANASALSeptember 2023 11:00pm Complies with drug therapyValsartan 80 mg twtiudKuiwvqlkmbhr66PCJIGhmsiAbixzfyxz 2023 11:00pmSeptember 2024 1:08pmTimolol Maleate 0.25 % dropsActive1 DROPSOPHTHALMICOnceSeptember 2023 11:00pmComplies with drug therapy Amoxicillin-Pot Clavulanate 875-125 mg nhiscrImbegqhfbfoa3NYXIKRyfxc 12 hours20 100September 2023 11:00pmFebruary 2024 9:29amAmlodipine 5 mg tablet Pzjfzd2MCLVCysivCgdcvviuu 24th, 2025 11:00pmComplies with drug therapyOmeprazole Magnesium (Prilosec Otc) 20 mg tablet,delayed release (DR/EC)Mnpdiv40OMERKjfeg December 23, 2024 11:00pmComplies with drug therapyTadalafil 5 mg tablet Lkyiso7QOQITfmcqSpwlzklgu 24th, 2025 11:00pmComplies with drug therapy Vital Signs Vital Reading Result Reference Range Collection Date/Time Height 68 [in_i] December 24, 2024 1:39ywQldedz30.45 kgSe2024 1:11pmHeart Rate78 /upr21-584Okxkwgxfb 25th, 2025 1:11pmOxygen saturation by Pulse gcecxoaz91 % 95-100Sept2024 1:11pmBP Fssflrgd963 mm[Hg]100-140Sept2024 1:11pmBP Ribicpxms79 mm[Hg]60-100Sept2024 1:11pmBMI (Body Mass Index)29.6 kg/a5Akrsajkfe2024 1:11pm Advance Directives Advance Directive Response Recorded Date/ Time Advance Directives No October 31 1:36pm Insurance Providers Guarantor Lamont Lowery Address [address] [address]Contact Info.Home Phone: Payer Group Member ID Coverage Type Subscriber Relationship to Subscriber Effective Date Expiration Date Medicare [id number] G Miesle Id: [id number] [address] [facility] [address] Home Phone: Email: [email or web address] G Miesle Id: [id number] [address] [address] Home Phone: Email: [email or web address] Encounters Encounter Location(s) Arrival/Admit Date Discharge/Departure Date Discharge/Departure Disposition Provider(s) Departed Physician/ Provider Office Visit -[facility] November 16, 2024 11:03am November 16, 2024 12:25pm Discharged to home care or self care (routine discharge) Jun Ayala DO Departed Physician/ Provider Office Visit -[facility] December 24, 2024 1:32pm December 24, 2024 3:59pm Discharged to home care or self care (routine discharge) Eloy Garcia MD Recent Diagnosis Onset Date Admit Date Primary osteoarthritis, left shoulder Unknown November 16, 2024 11:03am Central apnea Unknown December 24, 2024 1:32pm Chronic insomnia Unknown December 24, 2024 1:32pm Hypnotic dependence Unknown December 242024 1:32pm Obstructive sleep apnea Unknown r 2024 1:32pm Assessments Diagnosis Onset Date Resolution Status Admit Date Primary osteoarthritis, left shoulder acuteAugust 2024 11:03amCentral apneaacuteSept2024 1:32pm Chronic insomniaacuteSe2024 1:32pmHypnotic dependenceacute December 24, 2024 1:32pmObstructive sleep apneaacuteDecember 24, 2024 1:32pm Plan of Treatment Author Jun [facility]ala [facility]Authored[facility] 11:46amBrent presents with end-stage left glenohumeral arthritis. At this juncture we have discussed the findings and diagnosis as well as personally reviewed appropriate imaging and performed interpretation of related testing and examination with the patient in office today. Prior medical notes from Frederick Arias DO and history have been reviewed. Our discussion today regarding glenohumeral arthritis and his treatment. Nonoperative and operative treatment options were discussed. At this time he wants to move forward with conservative treatment. Under sterile technique patient's left shoulder was injected via the posterior portal into the glenohumeral joint with 4 cc of Marcaine and 1 cc of Kenalog. Discussed home exercise program along with anti-inflammatory use as needed. I will plan to see him back as needed The patient has been involved in our cooperative treatment plan and agrees to move forward with treatment at this time. Images and pain etiology were discussed with the patient. Many of the symptoms are coming from arthritis in the shoulder. Treatment modalities were discussed including conservative treatment in the form of oral anti-inflammatories, injection, physical therapy. Surgical interventions were discussed in the form of arthroplasty. We will treat this conservatively at this time and he will think about surgery. We discussed an injection at this time and patient wishes to proceed. Under sterile condition, 1 cc of Kenalog/ 4 cc bupivacaine were injected into the left subacromial space. Patient tolerated the procedure well. Advised we can not do surgery for 3 months following the injection. He should continue to do at home exercises. He can follow up as needed for a repeat injection or to further discuss surgery. Future Tests Future scheduled test information is unavailable Pending Tests Test Name Ordered Date Scheduled Date XR shoulder LT min 2V* November 12, 2024 11:57am Future Visits Future appointment information is unavailable Future Procedures Future procedure information is unavailable Future Medications Future medication information is unavailable Patient Instructions Patient instructions are unavailable
--- OUTSIDE RECORDS SUMMARY | 2025-02-08 11:57 | XMS_ITS | Clinical Summary ---
Author Organization [facility] Address [address] [place], [place] [address] Care Team Providers Care Combat Systems Officer Name Role Phone Daniel Onofre Primary Care Provider Allergies No known active allergies Medications MedicationSigDispense QuantityRefillsLast FilledStart DateEnd DateStatus lisinopril (ZESTRIL, PRINIVIL) 10 mg tablet Take 10 mg by mouth once daily.Active temazepam (RESTORIL) 30 mg cap Take by mouth at bedtime as needed.Active testosterone cypionate (DEPO-TESTOSTERONE) 100 mg/mL injection Inject intramuscularly one time only.Active timolol hemihydrate (BETIMOL) 0.25 % ophthalmic solution twice daily.Active lovastatin (MEVACOR) 10 mg tablet Indications:Polycythemia,Erythrocytosislovastatin 10 mg tablet Take 1 tablet every day by oral route.Active Omeprazole Magnesium (PRILOSEC OTC) 20 mg tablet Indications:Polycythemia,ErythrocytosisPrilosec OTC 10mg QDActive testosterone cypionate (DEPO-TESTOSTERONE) 200 mg/mL injection Indications:Polycythemia,Erythrocytosistestosterone cypionate 200 mg/mL intramuscular oilActive Tadalafil (CIALIS) 5 mg tablet Indications:Polycythemia,ErythrocytosisTake 5 mg by mouth.Active CPAP Indications:Polycythemia,ErythrocytosisActive RED YEAST RICE ORAL Indications:Polycythemia,ErythrocytosisTake by mouth.Active VITAMIN A ORAL Indications:Polycythemia,ErythrocytosisTake by mouth.Active cholecalciferol, vitamin D3, (VITAMIN D3 ORAL) Indications:Polycythemia,ErythrocytosisTake by mouth.Active flaxseed oil (OMEGA 3 ORAL) Indications:Polycythemia,ErythrocytosisTake by mouth.Active GARLIC OIL ORAL Indications:Polycythemia,ErythrocytosisTake by mouth.Active Zinc 50 mg tab Indications:Polycythemia,ErythrocytosisTake by mouth.Active Active Problems ProblemNoted DateDiagnosed SdhbZtfkumyabfnvem17/28/2019 Family History Medical HistoryRelationCommentsParkinson???s DiseaseFathersmokerFatheresophageal cancerMotherhypothyroidismMotherBreast CancerSisterRelationStatusCommentsBrother AliveFatherDeceasedMotherDeceasedSisterDeceased Social History Tobacco UseTypesPacks/DayYears UsedDateSmoking Tobacco: NeverSmokeless Tobacco: NeverAlcohol UseStandard Drinks/WeekCommentsYes0 (1 standard drink = 0.6 oz pure alcohol)occasionallyPHQ-2AnswerDate RecordedPHQ-2 qavoe165Area Deprivation IndexAnswerDate RecordedNational Score (1-100), lower number is lower riskNot on file03/08/2020State Score (1-10), lower number is lower riskNot on file03/08/2020Data from: https://www.neighborhoodatlas.[facility].edu/. Last address used for calculationNot on file03/08/2020Sex and Gender Information ValueDate RecordedSex Assigned at BirthNot on fileLegal YsmLwov6705/14/2018 11:31 AM ESTGender IdentityNot on fileSexual OrientationNot on file Last Filed Vital Signs Vital SignReadingTime TakenCommentsBlood Nvqhxgcn287/9703 1:48 PM EDT Ssqei709806/19/2018 1:48 PM JPLHwogckdiamw81.7 ??C (98 ??F)06/19/2018 1:48 PM EDT Respiratory Ksns762606/19/2018 1:48 PM EDTOxygen Jfcosahgaj98%06/19/2018 1:48 PM EDTInhaled Oxygen Concentration--Mjkwwf10.6 kg (206 lb 4.8 oz)06/19/2018 1:48 PM VSNZcaxjf143.7 cm (5' 7.99 )06/19/2018 1:48 PM EDTBody Mass Index31.38006/19/2018 1:48 PM EDT Plan of Treatment Health MaintenanceDue DateLast DoneCommentsAnxiety Uhcdcvtra44/06/1966Depression Vuitmufjh09/06/1966Hepatitis C Xedxerzqm91/06/1966Diabetes Bpzvirfth58/06/1993 Shingrix Vaccine (2 of 3)RSV Vaccine (1 - 1-dose 75+ series) 09/04/2022dvance Directive Nfqrnrgyeu85/01/2025ovid-19 Vaccine (1 - 2024- season)2024Influenza Vaccine (#1)2024DTaP,Tdap,Td Vaccine (2 - Td or Tdap)Pneumococcal Vaccine: 50+Uuxumsltx10/25/2015, 09/29/2012 Insurance Care Teams Team MemberRelationshipSpecialtyStart DateEnd Date Daniel Onofre DO [address] [facility], [place] [address] PCP - GeneralFamily Medicine05/14/18
--- OUTSIDE RECORDS SUMMARY | 2025-02-08 12:04 | XMS_ITS | CCD ---
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 Role Phone NARCISO MARINELLI Attending Unavailable RICE, MURALI Blancas Referring Unavailable FANNING, NARCISO Zapien Referring Unavailable FANNING, NARCISO Zapien Attending Unavailable RUPERTO BLAS Referring Unavailab Frederick Villafuerte Primary Care Physician [phone] LISA, DR HARMAN Primary Care Unavailable RICE, [...] MURALI Blancas Consulting Unavailable RICE, DR MURALI Blnacas Admitting Unavailable HOUSE, DR HARMAN Primary Care Unavailable RICE, DR MURALI Blancas Attending Unavailable RICE, DR MURALI Blancas Consulting Unavailable RICE, DR MURALI Blancas Admitting Unavailable IgorMagnolia pinzon Unavailable Myrna Isbell Unavailable ERASMO RUSS Consulting Unavailab le INPATIENT, TELENEUROLOGY Consulting Unavail able Roddy Orona MD Primary Care Provider [phone] Josh Hearn NP Unavailable Frederick Gonzalez MD Primary Care Provider EDA JUNIOR Attending Unavailable JOSH HEARN Attending UnavailJOSH Chavez Attending UnavailBRII Trivedi Attending Unavailable BRII OCONNOR Referring Unavailable BRII OCONNOR Attending Unavailable Frederick Gonzalez DO Primary Care Provider Sharon Rodriguez APRN Attending Provider [phone] FREDERICK GONZALEZ Primary Care Physician [phone] EWA RICHMOND Attending Unavailable EWA RICHMOND Attending Unavailable House Frederick CHAPA Primary Care Provider Nancy Quintanilla DO Attending Provider Jun Ayala DO Attending Provider FREDERICK GONZALEZ Primary Care Unavailable HOUSE, DO FREDERICK P Attending Unavailable HOUSE, FREDERICK P Primary Care Unavailable HOUSE, DO FREDERICK P Attending Unavailable HOUSE, FREDERICK P Primary Care Unavailable HOUSE, DO FREDERICK P Attending Unavailable HOUSE, FREDERICK P Primary Care Unavailable HOUSE, DO FREDERICK P Attending Unavailable Jose HOANG, Eloy Whittaker Attending Provider [phone] Allergies Allergy ClassificationReported Allergen(s)Allergy TypeDate of OnsetReaction(s) Facility (1 source)No Known Medication Allergies; 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: [No Known Medication Allergies]Propensity to adverse reactions (disorder)[facility] Repository Medications Current Medications MedicationDrug Class(es)DatesSig (Normalized)Sig (Original)sensor 200 actuat albuterol 0.09 mg/actuat dry powder inhaler (6 sources)beta2-Adrenergic AgonistStart: 96-14-0091ubbzkiofl (ProAir Digihaler) 90 mcg/act breath-activated inhaler (w/ sensor) 0 Refill(s) 5Active Start: 78-19-5456Vfizzpyjp Sulfate 90 mcg/actuation HFA aerosol inhaler Active 2 INH INHALATION EVERY 4-6 HOURS as needed for shortness of breath or wheezing 6.7 May 09, 2024 1:00am Complies with drug therapyAlbuterol Sulfate 90 mcg/actuation HFA aerosol inhaler (1 source)Start: 32-19-5992Jrqjghlck Sulfate 90 mcg/actuation HFA aerosol inhaler Active 2 INH INHALATION EVERY 4-6 HOURS as needed for shortness of breath or wheezing 6.7 May 09, 2024 12:00amALPRAZolam 0.5 mg oral tablet (3 sources)BenzodiazepineStart: 23-21-8886TSXHTMgwxx (Xanax) 0.5 MG tablet 0.5 mg 05/14/2024 ActiveamLODIPine 5 mg oral tablet (1 source)Dihydropyridine Calcium Channel BlockerStart: 75-60-5649simg 1 tablet by mouth once dailyAmlodipine 5 mg tablet Active 5 MG PO Daily December 24, 2024 12:00am Complies with drug therapyazithromycin 250 mg oral tablet (2 sources)Macrolide AntimicrobialStart: 39-63-4258Ztqswxgne Z-Jean-Claude 250 MG as directed Orally Mar, Activecholecalciferol (Vitamin D3) 200 Unit tablet split tablet (16 sources)cholecalciferol (Vitamin D3) 200 Unit tablet split tablet Take by mouth Activedoxycycline hyclate 100 mg oral capsule (3 sources)Tetracycline-class DrugStart: 06-10-2024 End: 73-56-9712zfxmjlkfuup (Vibramycin) 100 MG capsule 100 mg 06/10/2024 07/01/2024 Discontinued (Therapy completed)famotidine 20 mg oral tablet (2 sources)Histamine-2 Receptor AntagonistStart: 07-01-2024 End: 74-88-1485pnjc 1 tablet by mouth at bedtimefamotidine (Pepcid) 20 MG tablet Indications: LPRD (laryngopharyngeal reflux disease) Take 1 tablet(20 mg) by mouth at bedtime 90 tablet 07/01/2024 09/29/2024 Activefluticasone propionate 0.05 mg/actuat metered dose nasal spray (20 sources)CorticosteroidStart: 12-12-2023 End: 18-03-1163Vmemkpvuffq Propionate 50 mcg/actuation spray,suspension Active INTRANASAL December 28, 2023 12:00am Complies with drug therapylevothyroxine sodium 0.075 mg oral tablet (6 sources)l-ThyroxineStart: 29-60-4152mpvn 1 tablet by mouth once daily levothyroxine 75 mcg (0.075 mg) Tab mcg tab(s), Oral, Daily, Refills(s) 0 Start Date: 10/10/20 Status: Orderedtake 1 tablet by mouth once daily in the morning Levothyroxine Sodium 75 MCG 1 tablet in the morning on an empty stomach Orally Once a day Activelisinopril 10 mg oral tablet (3 sources)Angiotensin Converting Enzyme Inhibitortake 1 tablet by mouth in the morninglisinopril 10 MG tablet Take 10 mg by mouth in the morning. Active loratadine 10 mg oral tablet (20 sources)Start: 12-28-2023 End: 98-19-6613zumd 1 tablet by mouth once dailyLoratadine (Allergy Relief (Loratadine)) 10 mg tablet Active 10 MG PO Daily December 28, 2023 12:00am Complies with drug therapyStart: 12-12-2023 End: 25-22-5417heuh 1 capsule by mouth at bedtimeLoratadine 10 MG capsule Indications: Seasonal allergies Take 10 mg by mouth at bedtime 30 capsule 2 12/12/2023 03/05/2024 Discontinuedomeprazole 20 mg delayed release oral tablet (20 sources)Proton Pump InhibitorStart: 29-28-0537wuvk 1 tablet by mouth once dailyOmeprazole Magnesium (Prilosec Otc) 20 mg tablet,delayed release (DR/EC) Active 20 MG PO Daily December 24, 2024 12:00am Complies with drug therapy Start: 07-01-2024 End: 93-84-8673zjdv 1 capsule by mouth before mealtimeomeprazole (PriLOSEC) [address] capsule Indications: LPRD (laryngopharyngeal reflux disease) Take 1 c apsule (40 mg) by mouth in the morning. Take before meals. Do not crush or chew.. 90 capsule 07/01/2024 09/29/2024 ActiveStart: 12-29-2018 End: 52-38-1856cdzj 1 capsule by mouth once dailyOmeprazole 10 mg capsule,delayed release(DR/EC) Discontinued 10 MG PO Daily November 01, 2023 12:00am December 24, 2024 2:08pm End: 78-52-6398gnahqwkipz OTC (PriLOSEC OTC) 20 MG EC tablet Prilosec OTC 10mg QD 07/01/2024 Discontinued (Therapycompleted)take 1 capsule by mouth once daily PriLOSEC 10 MG 1 capsule 30 minutes before morning meal Orally Once a day Active predniSONE (8 sources)Start: 09-27-2854mcolenUDZZ 10 mg Tab See Instructions, Refills(s) 0 Start Date: 10/12/24 Status: Ordered Repeat number: 1Start: 10-08-2024 End: 67-82-4486Qyoqgfradk 10 mg tablet Discontinued 10 MG PO As Directed 20 12October 08, 2024 12:00am December 24, 2024 2:07pm 4 tablets x 3 days, 2 tablets x 3 days, 1 tablet x 3 daysStart: 05-09-2024 End: 98-78-8025tbdw 2 tablets by mouth once dailyPrednisone 20 mg tablet Discontinued 40 MG PO Daily 6 May 09, 2024 1:00am December 24, 2024 2:07pmtadalafil 5 mg oral tablet (20 sources)Phosphodiesterase 5 InhibitorStart: 05-06-5375gqnu 1 tablet by mouth once dailyTadalafil 5 mg tablet Active 5 MG PO Daily December 24, 2024 12:00am Complies with drug therapyStart: 51-76-8081xbrt 1 tablet by mouth once dailyCialis 5 mg oral tablet 5 mg = 1 tab(s), Oral, Daily Start Date: 10/23/18 Status: Ordered Repeat number: 1Temazepam (8 sources)BenzodiazepineStart: 97-19-2951ugmjinysq 30 mg Start Date: 12/25/18 Status: Orderedtemazepam (Restoril) 30 MG capsule Take by mouth Daily as needed ActiveTemazepam Not-Taking/PRNtestosterone cypionate 100 mg/ml injectable solution (16 sources)AndrogenStart: 59-86-3455Ahsovzdqrtic Cypionate 100 mg/mL oil Active 50 MG IM .Q5November 01, 2023 12:00am Complies withdrug therapyStart: 59-22-7855Vaermfwmplpr Cypionate Active 50 MG IM .Q5November 01, 2023 12:00amStart: 13-48-9614ptrjqrswzeoy cypionate 100 mg/mL intramuscular solution 50 mg, IntraMuscular, q5day, # 10 mL, Refills(s) 5, Pharmacy: [id number], 172, cm, 10/17/22 13:50:00 EDT, Height/Length Dosing,95, kg, 10/17/22 13:50:00 EDT, Weight Dosing Start Date: 09/17/23 Status: OrderedStart: 10-17-2022 testosterone cypionate 100 mg/mL intramuscular solution 50 mg, IntraMuscular, q5day, # 10 mL, Refills(s) 5, Pharmacy: [id number], 172, cm, 10/17/22 13:50:00 EDT, Height/Length Dosing,95, kg, 10/17/22 13:50:00 EDT, Weight Dosing Start Date: 10/17/22 Status: OrderedStart: 02-82-5053dperylopvkaa cypionate 100 mg/mL intramuscular solution 50 mg, IntraMuscular, q5day, # 10 mL, Refills(s) 3, Pharmacy: [facility] #[id number], 172, cm, 10/16/21 14:53:00 EDT, Height/Length Dosing, 95, kg, 10/16/21 14:53:00 EDT, Weight Dosing Start Date: 01/22/22 Status: OrderedStart: 41-63-6224bhdmtrwmquuq cypionate 100 mg/mL intramuscular solution 50 mg, IntraMuscular, q7day, # 10 mL, Refills(s) 3, Pharmacy: [facility] #[id number], 172, cm, 10/16/21 14:53:00 EDT, Height/Length Dosing, 95, kg, 10/16/21 14:53:00 EDT, Weight Dosing Start Date: 10/16/21 Status: Ordered Start: 81-78-5965Gwzh-Testosterone 50 mg, IntraMuscular Start Date: 09/28/19 Status: Orderedtestosterone cypionate (Depo-Testosterone) 200 MG/ML injection testosterone cypionate 200 mg/mL intramuscular oil ActiveTestosterone Cypionate 50 MG/ML (3 sources)Testosterone Cypionate 50 MG/ML as directed Injection Activetimolol 2.5 mg/ml ophthalmic solution (20 sources)beta-Adrenergic BlockerStart: 51-96-0804bdwe 1 drop(s) into the eye(s) onceTimolol Maleate 0.25 % drops Active 1 DROPS OPHTHALMIC Once December 28, 2023 12:00am Complies with drug therapyStart: 12-62-6524gaby 1 drop(s) into the eye(s) onceTimolol Maleate Active 1 DROPS OPHTHALMIC Once December 28, 2023 12:00amStart: 11-01-2023 End: 85-83-1525aijz 0.5 drop(s) into the eye(s) once dailyTimolol 0.5 % drops Discontinued 1 DROPS EYE-BOTH Daily November 01, 2023 12:00am December 27 11:22amStart: 11-01-2023 End: 41-08-1906pjyi 1 drop(s) into the eye(s) once dailyTimolol Discontinued 1 DROPS EYE-BOTH Daily November 01, 2023 12:00am December 28, 2023 11:22amStart: 19-27-2119euuv 1 drop(s) into the eye(s) once dailyTimolol Active 1 DROPS EYE- BOTH Daily November 01, 2023 12:00amStart: 66-76-1140Urxbnsz GFS 0.5% Gel drop(s), Daily, Refill(s) 0 Start Date: 10/10/20 Status: Ordered Repeat number:1 Start: 74-47-4091Kiwhpor GFS 0.5% Gel drop(s), Daily, Refill(s) 0 Start Date: 10/10/20 Status: OrderedStart: 45-48-5407Kojcsfy GFS 0.5% Gel drop(s), Daily, Refill(s) 0 Start Date: 10/10/20 Status: Orderedtake 1 drop(s) into the eye(s) once dailytimolol (Timoptic) 0.5 % ophthalmic solution Administer 1 drop into both eyes Daily ActiveTimolol Maleate ActivetiZANidine 4 mg oral capsule (3 sources)Central alpha-2 Adrenergic AgonistStart: 92-12-6856fmXYBiskjh (Zanaflex) 4 MG capsule 0 Refill(s) 06/10/2024 Activezolpidem tartrate 12.5 mg extended release oral tablet (20 sources)gamma-Aminobutyric Acid-ergic AgonistStart: 21-92-6883Czzmajbx Active MG PO November 01, 2023 12:00amStart: 43-00-2389Srzklkur 12.5 mg tablet,ext release multiphase Active MG PO November 01, 2023 12:00am Complies with drug therapy Completed/Discontinued Medications MedicationDrug Class(es)DatesSig (Normalized)Sig (Original)amoxicillin 875 mg / clavulanate 125 mg oral tablet (6 sources)Penicillin-class AntibacterialStart: 12-28-2023 End: 11-74-7460hyde 1 tablet by mouth every twelve hoursAmoxicillin-Pot Clavulanate 875-125 mg tablet Discontinued 1 TAB PO Every 12 hours 18 01December 28, 2023 12:00am May 09, 2024 10:29amStart: 52-94-1455pkdm 1 tablet by mouth every twelve hoursAmoxicillin-Pot Clavulanate 875-125 MG 1 tablet Orally every 12 hrs for 10 day(s) Mar, Activebenzonatate 100 mg oral capsule (4 sources)Non-narcotic AntitussiveStart: 05-09-2024 End: 09-36-2722yjil 1 capsule by mouth three times daily as needed for cough Benzonatate 100 mg capsule Discontinued 100 MG PO Three times daily as needed for cough May 09, 2024 1:00am December 24, 2024 2:08pm1 ml methylPREDNISolone acetate 40 mg/ml injection (17 sources)CorticosteroidStart: 03-09-2024 End: 50-28-2277nvvmstKGSUAQObdrum acetate (DEPO-Medrol) injection 40 mgStart: 03-09-2024 End: 53-88-112183 mg, Intra-articular, Once PRN Procedure, Starting on Sat03/09/24 at 1025, For 1 doseStart: 02-17-2024 End: 63-83-7966ovormjBPXORNJgeait acetate (DEPO-Medrol) injection 40 mgStart: 02-17-2024 End: 53-98-866636 mg, Intra-articular, Once PRN Procedure, Starting on Sat02/17/24 at 1157, For 1 doseStart: 11-01-2023 End: 83-78-2124wqvx 1 tablet by mouth onceMethylprednisolone (Medrol (Jean-Claude)) 4 mg tablets,dose pack Discontinued 0 PO per package directions November 01, 2023 12:00am December 28, 2023 11:19am PO PER PKG DIRStart: 59-68-6076Kgugdg 4 MG as directed Orally for 6 days Dec, Not-Taking/PRNTimolol 0.5 % drops (1 source)Start: 11-01-2023 End: 23-06-3971kpjs 0.5 drop(s) into the eye(s) once dailyTimolol 0.5 % drops Discontinued 1 DROPS EYE-BOTH Daily October 31, 2023 11:00pm December 27 10:22amTriamcinolone (3 sources)CorticosteroidStart: 47-99-7908BJGWIEQ - 10 mg Dec, 40 mg valsartan 40 mg oral tablet (20 sources)Angiotensin 2 Receptor BlockerStart: 12-28-2023 End: 56-71-0315ijtk 2 tablets by mouth once dailyValsartan 40 mg tablet Discontinued 80 MG PO Daily December 28, 2023 11:20am December 28, 2023 11:22amStart: 12-28-2023 End: 33-76-3502edha 80 mg by mouth once dailyValsartan Discontinued 80 MG PO Daily December 28, 2023 11:20am December 28, 2023 11:22amStart: 12-28-2023 End: 42-89-8007qvqy 1 tablet by mouth once dailyValsartan 80 mg tablet Discontinued 80 MG PO Daily December 28, 2023 12:00am December 24, 2024 2:08pmStart: 11-01-2023 End: 78-04-9283whyj 1 tablet by mouth once dailyValsartan 40 mg tablet Discontinued 40 MG PO Daily November 01, 2023 12:00am December 28, 2023 11: 22amStart: 10-10-2020 End: 97-38-7112lwrn 1 tablet by mouth once dailyValsartan 80 mg tablet Active 80 MG PO Daily December 28, 2023 12:00am Complies with drug therapytake 1 tablet by mouth every twelve hoursValsartan 40 MG 1 tablet Orally Twice a day Active Problems Active Problems Problem ClassificationProblemDateDocumented DateEpisodic/ChronicAnxiety disorders (1 source)Anxiety disorder, unspecified; 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: [Anxiety disorder, unspecified]Onset: 52-08-6197FzssfihHdoypjm kidney disease (3 sources)Chronic renal failure; 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: [Chronic kidney disease, unspecified]Onset: 080846-20-5712WxnaoquKrkmsnr obstructive pulmonary disease and bronchiectasis (5 sources)Bronchitis; 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: [Bronchitis, not specified as acute or chronic]62-24-4787GkpvgaiuTfiucwoeayd and hemorrhagic disorders (1 source)Thrombocytopenia, unspecified; 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: [THROMBOCYTOPENIA UNSPECIFIED]Onset: 10-70-8676RwfttluS Codes: Natural/environment (2 sources)Bitten or stung by nonvenomous insect and other nonvenomous arthropods, initial encounter; 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: [Insect bites]92-05-6354Ideigmod Esophageal disorders (5 sources)Laryngopharyngeal reflux; 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: [Gastro-esophageal reflux disease without esophagitis]Onset: 721562-83-5020NlcziquMogklsrht hypertension (20 sources)Essential (primary) hypertension; 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: [Essential hypertension]Onset: 454678-68-6672BgbxebdNhoostuzhawvh symptoms and ill- defined conditions (20 sources)Delay when starting to pass urine; 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: [Microscopic hematuria]Onset: 368484-22-4970JiblvkymTxsmsxqz (2 sources)Glaucoma; 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: [Unspecified glaucoma]Onset: 07-01-2024 09-73-9507MuebxciUegyqhneqyg of prostate (20 sources)Benign prostatic hypertrophy with outflow obstruction; 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: [Benign prostatic hyperplasia with lower urinary tract symptoms]Onset: 71-01-2223QifctrxRwcijmjxdtipm mental health disorders (2 sources)Chronic insomnia; 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: [Psychophysiologic insomnia] 25-04-4368BcbvvrdVhxhdbuarzthir (15 sources)Arthritis of left glenohumeral joint; 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: [Primary osteoarthritis, left shoulder]Onset: 571104-84-7460RprumboLvvga circulatory disease (1 source)Elevated blood-pressure reading, without diagnosis of hypertension EpisodicOther diseases of kidney and ureters (1 source)Urinary tract obstruction; 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: [Other obstructive and reflux uropathy]Onset: 79-12-9543LczrkosfDtywf endocrine disorders (5 sources)Testicular hypofunction; 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: [Testicular hypofunction] Onset: 76-19-7198FerelrlWxddp endocrine disorders (20 sources)Male hypogonadism; 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: [Testicular hypofunction]Onset: 333750-56-7313KfopegmFnoqm endocrine disorders (6 sources)Testicular hypofunction; 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: [TESTICULAR HYPOFUNCTION] Onset: 26-29-6131EhfponqHsvac hematologic conditions (1 source)Secondary polycythemia; 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: [Secondary polycythemia]Onset: 69-11-6645WolvtykrGnejw lower respiratory disease (2 sources)Apnea; 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: [Apnea, not elsewhere classified]12-24-2024 EpisodicOther male genital disorders (5 sources)Eadfskreu46-54-0695HamyrayOwmyh male genital disorders (16 sources)Male erectile dysfunction, unspecified; 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: [Impotence of organic origin]Onset: 780075-02-9321BzkmtjaZxtry non-traumatic joint disorders (8 sources)Disorder of shoulder; 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: [Other specified joint disorders, left shoulder]05-59-3731RgewtpvoZjtzb non-traumatic joint disorders (4 sources)Pain in left shoulder; 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: [Pain in joint, shoulder region] 13-33-7089YlgultiuLuvja nutritional; endocrine; and metabolic disorders (20 sources)Body mass index 30+ - obesity; 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: [Body mass index (BMI) 30.0-30.9, adult]Onset: 110459-40-6296UwwykqvHrlfe upper respiratory disease (18 sources)Seasonal allergic rhinitis; 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: [Other seasonal allergic rhinitis]Onset: 562592-08-5567JdkxewuCnwoz upper respiratory disease (3 sources)Seasonal allergy; 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: [Other seasonal allergic rhinitis] 00-14-3373UhnfpvrXuusj upper respiratory infections (3 sources)Sinusitis; 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: [Chronic sinusitis, unspecified]Onset: 041787-01-3309BmpsvjeSopnv upper respiratory infections (9 sources)Acute pharyngitis, unspecified; 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: [Acute pansinusitis, unspecified]EpisodicPoisoning by nonmedicinal substances (8 sources)Bee sting; 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: [Toxic effect of venom of bees, accidental (unintentional), initial encounter]82-81-8280RbqetkopFbsvvksp codes; unclassified (5 sources)Sleep dxuix92-91-8068GnordeyVlalgocl codes; unclassified (6 sources)Obstructive sleep apnea syndrome; 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: [Obstructive sleep apnea (adult) (pediatric)]Onset: 802432-97-0686AddtwljUuirwmcp codes; unclassified (1 source)Sleep apnea, unspecified; 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: [Sleep apnea, unspecified] Onset: 07-72-0968XmiucwaRgnntluk codes; unclassified (1 source)Obstructive sleep apnea (adult) (pediatric); 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: [Obstructive sleep apnea (adult) (pediatric)]Onset: 67-07-2010JzzvsddTfbjvisp codes; unclassified (7 sources)Insomnia; 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: [Insomnia, unspecified]Onset: 07-01-2024 27-26-5987KdzsafvfPvdiqhhv codes; unclassified (1 source)Insomnia, unspecified; 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: [Insomnia, unspecified]Onset: 37-51-9960MvedwwzqVwlqhmvyk-related disorders (2 sources)Hypnotic dependence; 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: [Sedative, hypnotic or anxiolytic dependence, uncomplicated]43-68-2847ZkckdxfHltamjz disorders (1 source)Hypothyroidism, unspecified; 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: [HYPOTHYROIDISM UNSPECIFIED]Onset: 75-44-6114PakzyjaSpveldafkfzy (5 sources)Asymptomatic microscopic lqiwvnuds92-65-6051Avtytahbyhqy (5 sources)Drug therapy pkdzzge25-05-8135 Past or Other Problems Problem ClassificationProblemDateDocumented DateEpisodic/Chronic Administrative/social admission (16 sources)First encounter by subject; 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: [Persons encountering health services in other specified circumstances]Onset: EpisodicOther aftercare (16 sources)Drug therapy finding; 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: [exterminator helper termite (current) use of 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]Onset: 000605-80-4912VbbkwlyeRvdsa hematologic conditions (16 sources)Erythrocytosis; 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: [Secondary polycythemia]Onset: 422953-94-5896CmyepoahKfxrb nervous system disorders (14 sources)Gordon's palsy; 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]Onset: 01-09-2024 09-16-4142ItchffrrUiucl screening for suspected conditions (not mental disorders or infectious disease) (20 sources)Patient encounter status; 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: [Encounter for screening for lipoid disorders]Onset: 394772-81-3056EzphgzdjSevestwsmhqt (1 source)Contact with and (suspected) exposure to covid-19 Z20.822 Results Test NameValueInterpretationReference RangeFacilityAmbulatory Visit Summaryon 43-43-0420Ycnhlditxm Visit SummaryAmbulatory Visit Summary LAMONT GOVEA :1945 Visit Date:10/12/2024 Ambulatory Visit Instructions Your Diagnosis Male hypogonadism BPH with urinary obstruction Other obstructive and reflux uropathy Your Care Team Attending Physician - MAXIMILIANO MAIER, EWA Zapien Primary Care Physician - WESLEY CHAPEL FREDERICK CHAPA This Is Your Medications List omeprazole (Prilosec [...] MARTINEZ When: In 1 year Where: [address] [facility] [place] [address] Medications What How Much When [...] gland that is caused by the normal agingprocess. The prostate may get bigger as a man gets older. The condition is not caused by cancer. The prostate is a walnut-sized gland that is involved in the production of semen. It is located in front of the rectum and below the bladder. The bladder stores urine. The urethra carries stored urine ou t of the body. An enlarged prostate can press on the urethra. This can make it harder to pass urine. The buildup of urine in the bladder can cause infection. Back pressure and infection may progress to bladder damage and kidney (renal) failure. What are the causes? This condition is part of the normal aging process. However, not all men develop problems from thiscondition. If the prostate enlarges away from the [...] Your health care prov (more content not included)...[facility] 01-45-6071GubsybgmrZskmfylte From: Lorri Metz To: EU - Administrative; Sent: 10/12/2024 13:45:33 EDT Show up: 06/30/2025 13:44:00 EDT Subject: Ambulatory Reminder Due Date/Time: 10/12/2025 13:43:00 EDT Reminder/Recall Patient was seeing Ewa Richmond. He is needing a 1 yr f/u w/ PSA which is due around 10/12/2025. Please get him scheduled.[facility] Office/Clinic Noteon 08-37-2301Yqjrozo Office/Clinic NoteUrology Office/Clinic Note Chief Complaint 1 year with [...] E&M of Est. Patient Moderate 30-39 Min 68966 Hemoglobin and Hematocrit Hepatic Function Panel Lipid Panel PSA Screen, Total Testosterone Level Total Urnls Dip Stick Auto w/o Microscopy POC 68008 2. BPH with urinary obstruction (N40.1: Benign [...] E&M of Est. Patient Moderate 30-39 Min 78221 Other obstructive and reflux uropathy (N13.8: Other obstructive and reflux uropathy) Follow-up With When Contact Information MAXIMILIANO MAIER, EWA Zapien, URL In 1 year [address] [place] [address] Additional Instructions: Patient Education Benign Prostatic Hyperplasia [...] Negative (10/12/24 1 (more content not included)... [facility]:Result Comment: Electronically Signed By: EWA RICHMOND PA-C\Date and Time Signed: 10/12/2512:49 EDTLab - Other Lab Resultson 49-93-8671Ipr - Other Lab Results [id number]#1.00OT[facility] Recordson 17-61-1511Ttwspnq Records [id number]#1.00OT[facility] Outside Recordson 25-11-5794Vigndjh Records [id number]#1.00OTOhio[facility] HospitalNo Panel Informationon 68-43-0636SrbngBrii Oconnor NP 03/09/2024 10:34 AM L Inj/Asp: [...] and draped in the usual sterile fashion. [facility] Information[facility] 41-99-6227CtkgiBrii Oconnor NP 02/17/2024 9:46 PM L Inj/Asp: [...] and draped in the usual sterile fashion. [facility] [place] [facility] - left 2 Viewson 20-76-1764Qbrmeqz Result: Xrays AP, axillary and y-scapula of the left shoulder performed on February 17, 2024 demonstrates bone on bone glenohumeral joint. Narrowing of the ac joint in addition. No fractures noted. Humerus centered within the glenoid. There is abnormal glenoid morphology. Impression Advanced arthritis of the glenohumeral joint. Brii [facility] HealthcareRadiology Study observation (narrative)[facility] Shoulder - left 2 ViewsOrdered By: Narciso Zarate on 02-17-2024 [facility] Triductor Work Phone: Lab - Other Lab Resultson [id number] - Other Lab [id number]#1.00[facility] HospitalOutside Recordson 50-19-1342Gktejvu Records [id number]#[address] [place] [address] Patient Provided Health Dataon 92-72-5197Exjlobz Provided Health Data [id number]#[address] [place] [address] Ambulatory Visit Summaryon 92-54-9214Gvxiivoksa Visit SummaryAmbulatory Visit Summary JEFERSON LAMONT Aguirre :1945 Visit [...] Every 5 days Male hypogonadism Pickup at [facility] Unchanged tadalafil (Cialis 5 mg oral tablet) 1 Tablets By Mouth Every day Unchanged timolol ophthalmic (Timolol GFS 0.5% Gel) Every day Unchanged valsartan (valsartan 80 mg Tab) By Mouth Every day Unchanged zolpidem (Ambien CR 12.5 mg Tab-ER) 1 Tablets By Mouth Once a day (at bedtime) as needed for for sleep Pharmacy Information [facility]: [address] [place], [place] [phone] What When Comments Stop Taking aspirin Stop [...] you for choosing us for your care. [facility]/Clinic Noteon 78-82-1389Octnvwt Office/Clinic NoteUrology Office/Clinic Note Chief Complaint 1yr T Level [...] Reviewed labs, all wnl. No indication for dosagechanges. States he feels current energy level is slightly lower but has been on TRT for many years.Pt inquired about Jatenzo as this would allow for more stability of sxs. [facility]. -F/u [...] highly satisfiedwith overall symptom control. Pt is experiencingnoside effects. IPSS 7 QOL 1 We discussed [...] Contact Information MAXIMILIANO MAIER, EWA Zapien, URL [address] [place] [address] [phone] Additional Instructions: 1 year w/ PSA, LFTs, Lipids, H&H, total T level Patient Education Hypogonadism, Male Documentation recorded by the ava Mason accurately reflects the services(s) I performed anddecisions made by me. Authenticated by Ewa Richmond PA-C on 10/15/2023 13:46:14. IChhaya, personally scribed for Ewa Richmond PA-C on 10/15/2023 13:42:41. . Problem List/Past [...] 10/15/2023 Family History Family (more content not included)...[facility] HospitalComment on above:Result Comment: Electronically Signed By: EWA RICHMOND PA-C\.br\Date and Time Signed: 10/14/2412:49 EDT\.br\Electronically Co-Signed By: Chhaya Mason\.br\Date and Time Co-Signed: 10/15/23 13:43 EDTCOVID + FLU Quick Testingon 79-42-2195HKYM-CoV-2 (COVID-19) RNA STEFF+probe Ql (Unsp spec)NegativeTervela QuarterSpot Other COVID + FLU Quick TestingNegativeAtlanta QuarterSpot Other Quick Strepon 03-14-2023S. pyogenes Org specific cx Ql (Throat)NegativeTervela QuarterSpot Other Quick BrazzleboxFixber Other TESTOSTERONE, TOTALon 61-06-4017Gugjgpmdpqrj [Mass/Vol]749 ng/hNRkcizr651-833ThwSamaritan HospitalComment on above:Result Comment: Adult male reference interval is based on a population of healthy nonobese males (BMI <30) between 19 and 39 years old. martha Roman.al. JCEM 2017,102;7138-6530. PMID: [id number].Performed By: #### TESTTOT #### [facility] [address] [place] [address] Dr. Lazaro SamTESTOSTERONE, TOTALon 75-78-4658Jlzpdhqiehxe [Mass/Vol]740 ng/dL Vdmadb387-949Gas [facility]onComment on above:Result Comment: Adult male reference interval is based on a population of healthy nonobese males (BMI <30) between 19 and 39 years old. Abel et.al. JCEM 2017,102;2459-3231. PMID: [id number].Performed By: #### TESTTOT #### [facility] [address] [place] [address] Dr. Lazaro BatesC AUTO DIFFon 29-49-2042DVVP #0.0 103/ulNormal0.0-0.1The [facility] AvonComment on above:Performed By: #### CBC #### [facility] [address] [place] [address] Dr. Lazaro SamBasophils/100 WBC (Bld)0.4 %Normal0.2-2.0The [facility] Comment on above:Performed By: #### CBC #### [facility] [address] [place] [address] Dr. Lazaro Haas #0.1 103/ulNormal0.0-0.7The [facility] AvonComment on above: Performed By: #### CBC #### [facility] [address] [place] [address] Dr. Lazaro Brayosinophils/100 WBC (Bld)0.6 %Critically low0.9-7.0The [facility] AvonComment on above:Performed By: #### CBC #### [facility] [address] [place] [address] Dr. Lazaro Brayrythrocyte distribution width (RBC) [Ratio]13.7 %Mttnso46.0-15.0 The [facility], AvonComment on above:Performed By: #### CBC #### [facility] [address] [place] [address] Dr. Lazaro SamHematocrit (Bld) [Volume fraction]52.4 %Zhrioh33.0-54.0The [facility] AvonComment on above:Performed By: #### CBC #### [facility] [address] [place] [address] Dr. Lazaro SamHemoglobin (Bld) [Mass/Vol]17.3 g/tJYpvggo80.0-18.0The [facility] AvonComment on above:Performed By: #### CBC #### [facility] [address] [place] [address] Dr. Lazaro Suarez #0.03 10e3/ulNormal0.00-0.03The [facility] AvonComment on above:Performed By: #### CBC #### [facility] [address] [place] [address] Dr. Lazaro Suarez %0.4 %Normal0.0-0.5The [facility], AvonComment on above: Performed By: #### CBC #### [facility] [address] [place] [address] Dr. Lazaro Loyd #1.5 103/ulNormal1.2-3.8The [facility], AvonComment on above:Performed By: #### CBC #### [facility] [address] [place] [address] Dr. Lazaro Munsonhocytes/100 WBC (Bld)18.7 %Critically low20.5-60.0The [facility]onComment on above:Performed By: #### CBC #### [facility] [address] [place] [address] Dr. Lazaro VarnerUAL DIFF REQNONormalThe [facility] AvonComment on above: Performed By: #### CBC #### [facility] [address] [place] [address] Dr. Lazaro Doshi (RBC) [Entitic mass]29.7 fsTncyig27.9-34.0The [facility] AvonComment on above:Performed By: #### CBC #### [facility] [address] [place] [address] Dr. Lazaro Coyne (RBC) [Mass/Vol]33.0 g/sDJhobzm68.9-35.2The [facility] AvonComment on above:Performed By: #### CBC #### [facility] [address] [place] [address] Dr. Lazaro Sow (RBC) [Entitic vol]90.0 uCJtluox27.0-94.0The [facility] AvonComment on above:Performed By: #### CBC #### [facility] [address] [place] [address] Dr. Lazaro Britton #0.6 103/ulNormal0.3-0.8The [facility] AvonComment on above:Performed By: #### CBC #### [facility] [address] [place] [address] Dr. Lazaro Diasocytes/100 WBC (Bld)7.7 %Normal1.7-12.0The [facility] Comment on above:Performed By: #### CBC #### [facility] [address] [place] [address] Dr. Lazaro Tubbs #5.8 103/ulNormal1.4-6.5The [facility]onComment on above:Performed By: #### CBC #### [facility] [address] [place] [address] Dr. Lazaro Porrasutrophils/100 WBC (Bld)72.2 %Nkbwsb94.0-75.0The [facility]onComment on above:Performed By: #### CBC #### [facility] [address] [place] [address] Dr. Lazaro Rossi mean volume (Bld) [Entitic vol]9.1 fLCritically low 9.5-13.5The [facility]onComment on above:Performed By: #### CBC #### [facility] [address] [place] [address] Dr. Lazaro SamPLT162 103/nlMjghdo627-949Jjn [facility] AvonComment on above: Performed By: #### CBC #### [facility] [address] [place] [address] Dr. Lazaro SamRBC5.82 106/ulNormal4.70-6.10The [facility]onComment on above:Performed By: #### CBC #### [facility] [address] [place] [address] Dr. Lazaro SamWBC8.1 103/ulNormal4.0-11.0The [facility]onComment on above: Performed By: #### CBC #### [facility] [address] [place] [address] Dr. Lazaro Taylor 14(COMP METB)on 02-40-3302Vcepjvq [Mass/Vol]3.7 g/dLNormal 3.4-5.0The [facility]onComment on above:Performed By: #### CMP, TSH #### [facility] [address] [place] [address] Dr. Lazaro SamAlbumin/Globulin [Mass ratio]0.9 {ratio}NormalThe [facility]onComment on above:Performed By: #### CMP, TSH #### [facility] [address] [place] [address] Dr. Lazaro Briseno [Catalytic activity/Vol]72 U/CTbifix11-687Lwx [facility] AvonComment on above:Performed By: #### CMP, TSH #### [facility] [address] [place] [address] Dr. Lazaro Nicole [Catalytic activity/Vol]42 U/ZMaeayh11-28Orz [facility] AvonComment on above:Performed By: #### CMP, TSH #### [facility] [address] [place] [address] Dr. Lazaro Barth gap [Moles/Vol]13.4 mmol/LNormalThe [facility] Comment on above:Performed By: #### CMP, TSH #### [facility] [address] [place] [address] Dr. Lazaro Richards [Catalytic activity/Vol]22 U/OHrjhrv38-63Zwj [facility], AvonComment on above:Performed By: #### CMP, TSH #### [facility] [address] [place] [address] Dr. Yilan ChangBilirubin [Mass/Vol]0.6 mg/dLNormal0.2-1.0The [facility] Comment on above:Performed By: #### CMP, TSH #### [facility] [address] [address] [address] Lazaro SamCalcium [Mass/Vol]8.8 mg/dLNormal8.5-10.1The [facility] Comment on above:Performed By: #### CMP, TSH #### [facility] [address] [address] [address] Lazaro SamChloride [Moles/Vol]104 mmol/FHirins56-817Anz [facility] Comment on above:Performed By: #### CMP, TSH #### [facility] [address] [place] [address] Dr. Lazaro SamCO2 [Moles/Vol]26.5 mmol/WDksrpd17.0-32.0[facility] Comment on above:Performed By: #### CMP, TSH #### [facility] [address] [place] [address] Dr. Lazaro SamCreatinine [Mass/Vol]1.30 mg/dLNormal0.70-1.30The [facility]onComment on above:Performed By: #### CMP, TSH #### [facility] [address] [place] [address] Dr. Lazaro BrayGFR-AF ERITREAN>60Normal>=60The [facility]onComment on above:Performed By: #### CMP, TSH #### [facility] [address] [place] [address] Dr. Lazaro BaryGFR-NON AF VOGHIRJS89 mL/min/1.69t3Ejwsjfifbz low>=60The [facility]onComment on above:Performed By: #### CMP, TSH #### [facility] [address] [place] [address] Dr. Lazaro SamGlobulin (S) [Mass/Vol]3.9 g/dLNormalThe [facility]onComment on above:Performed By: #### CMP, TSH #### [facility] [address] [address] [address] Lazaro SamGlucose [Mass/Vol]117 mg/dLCritically rigm70-081Drx [facility]onComment on above:Performed By: #### CMP, TSH #### [facility] [address] [place] [address] Dr. Lazaro SamPotassium [Moles/Vol]3.9 mmol/LNormal3.5-5.1The [facility] Comment on above:Performed By: #### CMP, TSH #### [facility] [address] [place] [address] Dr. Lazaro SamProtein [Mass/Vol]7.6 g/dLNormal6.4-8.2The [facility] Comment on above:Performed By: #### CMP, TSH #### [facility] [address] [place] [address] Dr. Lazaro SamSodium [Moles/Vol]140 mmol/ZGwbvob362-762Moh [facility] Comment on above:Performed By: #### CMP, TSH #### [facility] [address] [place] [address] Dr. Lazaro SamUrea nitrogen [Mass/Vol]23.0 mg/dLCritically high7.0-18.0The [facility]onComment on above:Performed By: #### CMP, TSH #### [facility] [address] [place] [address] Dr. Lazaro Trejo nitrogen/Creatinine [Mass ratio]17.7 mg/mgNormalThe [facility]onComment on above:Performed By: #### CMP, TSH #### [facility] [address] [place] [address] Dr. Lazaro Nelson4on 60-62-9247P9 [Mass/Vol]7.70 ug/dLNormal4.50-12.10The [facility]onComment on above:Performed By: #### T4 #### [facility] [address] [place] [address] Dr. Lazaro AkinsHolatoya 53-90-5345ZHU6.079 uIU/mLNormal0.358-3.740The [facility] on above:Performed By: #### CMP, TSH #### [facility] [address] [address] [address] Lazaro Vu [facility] BELOWNormalThMercy Health Allen HospitalCombeaumont hospital on above: Result Comment: <0.34 UIU/ml HYPERTHYROID 0.34-5.60 UIU/ml EUTHYROID >5.60 UIU/ml HYPOTHYROIDPerformed By: #### CMP, TSH #### [facility] [address] [place] [address] Dr. Lazaro SamTESTOSTERONE, FREE,DIRECT, TOTALon 21-81-0268Lqcm Testosterone(Direct)9.4 pg/mLNormal6.6-18.1[facility] on above:Result Comment: Performed at: BNPerformed By: #### TESTFRD #### [facility] [address] [place] [address] Dr. Lazaro SamTestosterone [Mass/Vol]328 ng/xZFhuymk841-859IpwMetroHealth Main Campus Medical Center on above:Result Comment: Adult male reference interval is based on a population of healthy nonobese males (BMI <30) between 19 and 39 years old. Abel et.al. JCEM 2017,102;8746-8189. PMID: [id number]. Performed at: CBPerformed By: #### TESTFRD #### [facility] [address] [place] [address] Dr. Lazaro BalderasOVSReed 63-21-0621ANKCJBHgqek (SP) Office (HEMACL) LAMONT GOVEA ([id number]) 1945 M Date Time Provider Department 06/19/18 2:30 PM NARCISO MARINELLI HEMACL During your visit today, we recorded the following information about you: Temperature Pulse Respiration Blood pressure 98 degrees 74/minute 18/minute 186/97 Weight Height 93.6 kg 1.727 m Narciso Marinelli MD 06/19/2018 2:18 PM Signed BARB Govea is a 72 year old male who [...] detected (Reference sequence: [id number]) Results for LAMONT GOVEA ( ) as of 06/19/2018 14:15 Ref. [...] week. - CBC + DIFF (FOR REMOTE [facility] USE) Narciso Marinelli MD Referring Provider: RUPERTO BLAS [[id number]] Allergies As of Date: 06/19/2018 (No Known Allergies) Date Reviewed: 06/19/2018 Reviewed by: Melvi Valle - Fully Assessed Reason for Visit: polycythemia [Other] Cmt: follow up Primary Visit Diagnosis:Erythrocytosis [D75.1] Order(s):CBC + DIFF (FOR REMOTE [facility] USE) [SQRCBCDF] Order #: [id number] STANDING Disposition: Return in about 1 year [...] Encounter Status:Closed by NARCISO MARINELLI MD on 06/19/18[facility] 02-56-5626Gduhjes mass concHNO ID: [id number] Author: Narciso Marinelli Service: ? Author Type: Physician Type: Progress Notes Filed: 06/19/2018 2:18 PM Note Text: BARB Lamont Govea is a 72 year old male who [...] detected (Reference sequence: [id number]) Results for LAMONT GOVEA ( ) as of 06/19/2018 14:15 Ref. [...] week. - CBC + DIFF (FOR REMOTE [facility] USE) Narciso Marinelli MDNormalCOhioHealth Dublin Methodist HospitalRemote CBCDIF (for [facility] use only)on 18-43-7703Rid Baso<0.28Nxkaqt0.00-0.10St. [facility] HospitalAbs [place] 1.02 k/uLHigh0.00-0.86[facility] Neut5.04 k/uLNormal1.45-7.50 [facility] HospitalBasophils/100 WBC (Bld)0.2 %NormalSt. Elizabeth HospitalEosinophils #/vol (Bld)0.40 10*3/uLNormal0.00-0.45St. Elizabeth HospitalEosinophils/100 WBC (Bld)4.5 %NormalSt. Elizabeth Hospital Erythrocyte distribution width Ratio (RBC)13.3 %Uybmoq73.5-15.0St. Elizabeth HospitalHematocrit Volume Fraction (Bld)48.8 %Pnxwpz82.0-51.0[facility]. [facility] HospitalHemoglobin mass conc (Bld)16.8 g/lBWwehcs95.0-17.0[facility] HospitalLymphocytes #/vol (Bld)2.43 10*3/uLNormal1.00-4.00St. [facility] HospitalLymphocytes/100 WBC (Bld)27.3 %NormalWadsworth-Rittman HospitalH Entitic mass (RBC)30.5 bRIlcmig61.0-34.0[facility]ittman HospitalHC mass conc (RBC)34.4 g/sCUlhdqd08.5-36.0W[facility]sworth-Rittman HospitalV Entitic volume (RBC) 88.[address] nIFkqwqg83.0-100.0[facility]. [facility] HospitalMonocytes/100 WBC (Bld)11.4 % NormalSt. Elizabeth HospitalNeutrophils/100 WBC (Bld)56.6 %NormalSt. Elizabeth HospitalPlatelet mean volume Entitic volume (Bld)9.6 fLNormal9.0-12.7 St[facility] HospitalPlatelets #/vol (Bld)152 10*3/fMVxward479-396DqchufftuSt. Elizabeth HospitalRBC #/vol (Bld)5.51 10*6/uLNormal4.20-6.00St. Elizabeth HospitalWBC #/vol (Bld)8.91 10*3/uLNormal3.70-11.00[facility] BCR-ABL Qualitativeon 30-07-6141RXC-ABL Qualitative(NOTE)NormalSt. Elizabeth HospitalComment on above:Result Comment: Please refer to [facility] Surgical Pathology report, By: #### CALR, BCRQL #### [address] [address] [address] JBTC Exon 9 Mutationon [id number] Result/InterpDuplicate request NormalSt. Elizabeth HospitalComment on above:Result Comment: Account Credited SEE MPNP. DMCKNIGHT 05 30 2019Performed By: #### CALR, BCRQL #### [address] [address] [address] VTJQ Reviewed byDuplicate requestNoAultman Alliance Community Hospital Comment on above:Result Comment: Account Credited SEE MPNP. DMCKNIGHT 05 30 2019Performed By: #### CALR, BCRQL #### [address] [address] KFAK Specimen TypeDuplicate requestNoAultman Alliance Community Hospital Comment on above:Result Comment: Account Credited SEE MPNP. DMCKNIGHT 05 30 2018Performed By: #### CALR, BCRQL #### [address] [address] NXENvi 67-52-6565VORCNegcwk Text Dear Lamont Govea: How to activate your [facility] [employer] Account 1. Visit the You.Dot Signup page at [email or web address] 2. Identify yourself using your one-time use activation code: [email or web address] 3. Follow the on-screen prompts to choose [...] information on the Identify Yourself Form at [email or web address] , click Next. Create your login and password, choose a [employer] ID and password that will be easy for you to use, but impossible for anyone else to guess. Pick a security question that will assist you in the event you forget your password the next time you log-on. If you have difficulty activating your account, please call our [employer] helpline at [phone] or toll free at . We hope you enjoy using [employer]! Kindest Regards, [facility] [employer] TeamNormalCOhioHealth Dublin Methodist HospitalCNOVSPon 05-29-2018 CNOVSPVisit (SP) Office (HEMACL) LAMONT GOVEA ([id number]) 1945 M Date Time Provider Department 05/29/18 11:15 AM NARCISO MARINELLI HEMGIULIANA During your visit today, we recorded the following information about you: Temperature Pulse Respiration Blood pressure 97.8 degrees 69/minute 16/minute 192/89 Weight Height 91.8 kg 1.727 m Narciso Marinelli MD 05/29/2018 12:28 PM Signed HPI Lamont Carla Goeva is a 72 year old male who [...] High blood hemoglobin F (HCC) ref. Dr. Chavez - Hypercholesterolemia - Sleep apnea PAST SURGICAL [...] viscosity is hematocrit with the risk of MO, CVA, Budd Chiari, etc all increased proportionately [...] TOTAL Narciso Marinelli MD Referring Provider: MURALI CHAVEZ [[id number]] Allergies As of Date: 05/29/2018 (No Known Allergies) Date Reviewed: 05/29/2018 Reviewed by: Melvi Valle - Fully Assessed Reason for Visit: high HGB [Other] Cmt: new patient consultation ref. Dr. Chavez Primary Visit Diagnosis:Polycythemia [D75.1] Other Visit Diagnosis:Erythrocytosis [D75.1] Order(s):JAK2 V617F MUTATION BLOOD [SQJAK2] Order #: [id number] FUTURE BCR-ABL QUALITATIVE MULTIPLEX RT-PCR [SQBCRQL] Order #: [id number] FUTURE CALR EXON 9 MUTATION ANALYSIS BLOOD [SQCALR] Order #: [id number] FUTURE MPL MUTATION ANALYSIS BLOOD [SQMPL] Order #: [id number] FUTURE ABS GRAN CT + CBC (FOR REMOTE [facility] USE) [SQRAGCBC] Order #: [id number] FUTURE ERYTHROPOIETIN/EPO [SQEPO] Order #: [id number] FUTURE HEPATIC FUNCTION PNL [SQHFP] Order #: [id number] FUTURE TESTOSTERONE TOTAL [SQTESTO] Order #: [id number] FUTURE Disposition: Return in about 3 weeks [...] Encounter Status:Closed by NARCISO MARINELLI MD on 05/29/18NormalCOhioHealth [facility] HospitalEPOon 31-45-4083CTZ5.8 mIU/mLNormal2.6-18.5COhioHealth [facility] Comment on above:Result Comment: Test analyzed by the [employer] DxI method. Performed By: #### JAK2, EPO, HFP #### [facility] Dafiti [facility] [place], [place] [address] Litvtax Functn Panelon 11-16-8837Hgrghpa mass conc4.6 g/dLNormal 3.9-4.9COhioHealth Dublin Methodist HospitalComment on above:Performed By: #### JAK2, EPO, HFP #### [facility] Dafiti [facility] [place], [place] [address] UVD enzyme act/vol60 U/BLydbrn13-204XxptqjfzrSt. [facility] Hospital Comment on above:Performed By: #### JAK2, EPO, HFP #### [facility] Dafiti [address] [place], [place] [address] WTN enzyme act/vol36 U/MLbkdmw25-98UbjezdhlsSt. Elizabeth HospitalComment on above:Performed By: #### JAK2, EPO, HFP #### [facility] Dafiti [address] [place], [place] [address] ZZJ enzyme act/vol29 U/VPcwgbo84-61GuffpqiglSt. Elizabeth HospitalCombeaumont hospital on above:Performed By: #### JAK2, EPO, HFP #### [place] [address] [place] [address] Hxhzmfbzs mass conc0.5 mg/dLNormal0.2-1.3COhioHealth [facility] Comment on above:Performed By: #### JAK2, EPO, HFP #### [place] [address] Xmcqvgzdf,Conjugated<0.2Normal<0.2CCrystal Clinic Orthopedic Center on above:Performed By: #### JAK2, EPO, HFP #### [place] [address] [place] [address] Iosnelk mass conc7.6 g/dLNormal6.3-8.0[facility] Comment on above:Performed By: #### JAK2, EPO, HFP #### [place] [address] HIN4 V617F Mutationon 26-11-0164BFI7 V617F InterpDuplicate request NormalSt. Elizabeth HospitalCombeaumont hospital on above:Result Comment: Account Credited SEE MPNP. DMCKNIGHT 05 30 2019Performed By: #### JAK2, EPO, HFP #### [place] [address] CZE9 V617F Spec TypeDuplicate requestNoMercy Hospital on above:Result Comment: Account Credited SEE MPNP. DMCKNIGHT 05 30 2019Performed By: #### JAK2, EPO, HFP #### [place] [address] Fvmlxwgga Path RevDuplicate requestNoAultman Alliance Community Hospital Comment on above:Result Comment: Account Credited SEE MPNP. DMCKNIGHT 05 30 2019Performed By: #### JAK2, EPO, HFP #### [place] [address] HNV Mutationon 28-48-3336PPT Mutation InterpDuplicate requestNormal [facility] Clinic ClevelandComment on above:Result Comment: Account Credited SEE JOSE ANTONIOP. DMCKNIGHT 3 2018Performed By: #### MPL #### [facility] [address] [place], [place] [address] Szroqqcresc Neopl Pnl Bloodon 36-91-2830Yxhni Neopl Pnl Bld(NOTE) NormalSt. Elizabeth HospitalComment on above:Result Comment: Please refer to [facility] Surgical Pathology report, .Performed By: #### MPNP ####[facility] [address] [place], [place] [phone] 65-44-7404Dgwcefi mass concHNO ID: [id number] Author: Narciso Marinelli Service: (none) Author Type: Physician Type: Progress Notes Filed: 05/29/2018 12:28 PM Note Text: BARB Govea is a 72 year old male who [...] High blood hemoglobin F (HCC) ref. Dr. Chavez - Hypercholesterolemia - Sleep apnea PAST SURGICAL [...] viscosity is hematocrit with the risk of MO, CVA, Budd Chiari, etc all increased proportionately [...] ABS GRAN CT + CBC (FOR REMOTE [facility] USE) - ERYTHROPOIETIN/EPO - HEPATIC FUNCTION PNL [...] ABS GRAN CT + CBC (FOR REMOTE [facility] USE) - ERYTHROPOIETIN/EPO - HEPATIC FUNCTION PNL - TESTOSTERONE TOTAL Narciso Marinelli MDNormalCOhioHealth Dublin Methodist HospitalRemote Abs Gran + CBC (for [facility] use only)on 36-74-8478Frhrf Gran Count3.85 k/uLNormal1.45-7.50St. Elizabeth HospitalErythrocyte distribution width Ratio (RBC)13.6 %Ndbzmf00.5-15.0 St[address] Elizabeth HospitalHematocrit Volume Fraction (Bld)49.6 %Qmdwzk41.0-51.0 St[address] [facility] HospitalHemoglobin mass conc (Bld)17.1 g/vMUqhg75.0-17.0 [facility] Entitic mass (RBC)30.5 tIOhdvof51.0-34.0[facility] HospitalHC mass conc (RBC)34.5 g/oCJmjwbi10.5-36.0[facility]man HospitalV Entitic volume (RBC)88.6 bSGkqaoe63.0-100.0St. Elizabeth HospitalPlatelet mean volume Entitic volume (Bld)9.9 fLNormal9.0-12.7COhioHealth Dublin Methodist HospitalPlatelets #/vol (Bld)146 10*3/vTPww423-136KvwxqqyebSt. Elizabeth HospitalRBC #/vol (Bld)5.60 10*6/uLNormal4.20-6.00St. Elizabeth HospitalWBC #/vol (Bld)6.86 10*3/uLNormal3.70-11.00St. Elizabeth HospitalSURGICAL PATHOLOGYon 35-69-5881MBLKJOQB PATHOLOGYPROCEDURE REPORT Specimen originated from [facility] Specimen #: [id number] Submitting Physician: NARCISO MARINELLI MD SPECIMEN SUBMITTED [...] sample, and cDNA prepared by reverse air plant engineer. Multiplex RT-PCR studies were performed using [...] developed and its performance characteristics determined by [facility]'s [facility]ology [facility] [place] ([facility]). It has not been cleared or approved by the FDA. RT-PLMO is regulated under CLIA as qualified to [...] sequencing was performed on the Illumina instrument ([place], [place]). A customized bioinformatic pipeline was used to align the sequencing reads to the reference human genome (GRCh37/hg19). Benign common polymorphisms are not reported. Limitations: Sequence changes outside the analyzed regions, including intronic, noncoding, and splice-site variants, will not be identified by this test. The lower limit of detection of this assay is approximately 1% allele proportion for the JAK2 Sxz798Akr single nucleotide variant and approximately 5% allele [...] developed and its performance characteristics determined by [facility]'s [facility] [place] ([facility]). It has not been cleared or approved by the FDA. [facility] is regulated under CLIA as qualified to perform high-complexity testing. This test is used for clinical purposes. It should not be regarded as investigational or for research. As Reviewed by: Quin Hill M.D. Ph.D. HENRIK/ap [id number] References: Temi DA, Syd A, Joshua R, [...] Receipt: 05/30/2018 Submitted: NARCISO MARINELLI MD Location: [facility] Diagnostic interpretation performed at [facility], [address] [place] [address].NormalSt. Elizabeth HospitalTestosteroneon 05-29-2018 Testosterone mass nqot280 ng/kFXfhxph956-493ZzojmfwjmCrystal Clinic Orthopedic Center on above:Result Comment: A testosterone level in the 193-320 ng/dL range with associated clinical symptoms is considered low and may indicate hypogonadism (from NEJM 2010 363:123-135). Results >320 ng/dL are considered normal.Performed By: #### TESTO ####[facility] [address] [place], [place] [phone] Vital Signs Date TimeVital SignValuePerforming IihtghwslLwlkdibw97-42-8000 14:11-0400Body zzegwt155.72 cmCharuniversity of connect[facility] House DO Work Phone: [phone]09-25-2025 14:11-0400 Body mass index (BMI) [Ratio]29.6 kg/q0Lrkqcks House DO Work Phone: [phone]09-25-2025 14:11-0400 Body ifjjdi98.45 kgMercy Health West Hospital House DO Work Phone: [phone]09-25-2025 14:11-0400 Diastolic blood wuvhhaik30 mm[Hg]Frederick Cloud Direct DO Work Phone: [phone]09-25-2025 14:11-0400 Heart rate78 /minCharsamson House DO Work Phone: [phone])[address]09-25-2025 14:11-0400 SaO2% (BldA) [Mass fraction]96 %Frederick House DO Work Phone: [phone]09-25-2025 14:11-0400 Systolic blood itbusttw418 mm[Hg]Frederick Cloud Direct DO Work Phone: [phone]07-10-2025 11:36-0400 Body bkwawm961.72 cmCharsamson House DO Work Phone: [phone] [place], [place] 4830407-10-2025 11:36-0400 Body mass index (BMI) [Ratio]29.5 kg/l9Loboudb House DO Work Phone: [phone] [place], [place] 4830407-10-2025 11:36-0400 Body .2 [degF]Frederick House DO Work Phone: [phone] [place], [place] 4830407-10-2025 11:36-0400 Body oqixbz87.16 kgSheilarsamson House DO Work Phone: [phone] [place], [place] 4830407-10-2025 11:36-0400 Diastolic blood xezbbfiu41 mm[Hg]Frederick House DO Work Phone: [phone] [place], [place] 4830407-10-2025 11:36-0400 Heart rate75 /minSheilarsamson House DO Work Phone: [phone] [place], [place] 4830407-10-2025 11:36-0400 Respiratory rate18 /minSheilarsamson House DO Work Phone: [phone] [place], [place] 4830407-10-2025 11:36-0400 SaO2% (BldA) [Mass fraction]97 %Frederick House DO Work Phone: [phone])[address] [place], [place] 4830407-10-2025 11:36-0400 Systolic blood rdfefdbj049 mm[Hg]Frederick House DO Work Phone: [phone] [place], [place] 4830404-02-2025 10:45-0400 Body taeaal392.6 cmEda Junior MD Work Phone: [facility] CenterQumjevpfgi63-65-0182 10:45-0400Body mass index (BMI) [Ratio]32.28 kg/w7DmmwxiEda Junior MD Work Phone: [facility] CenterSlfnjlpsty46-36-0712 10:45-0400Body uibtbf66.72 kgEda Junior MD Work Phone: [facility] CenterEckcuxvddx23-11-6263 10:45-0400Diastolic blood eozhbzha60 mm[Hg]Eda Junior MD Work Phone: [facility] CenterYgsineieov39-74-3235 10:45-0400Heart rate68 /min Eda Junior MD Work Phone: [facility] CenterOzhadtassh73-91-0479 10:45-0400Systolic blood ciizdakn397 mm[Hg]Eda Junior MD Work Phone: [facility] CenterDrvjoaidzi45-27-9844 09:28-0500Body owrgjt933.72 cmBl[facility]02-08-2025 09:28-0500Body mass index (BMI) [Ratio]30.6 kg/s5AzrvrvhctBlanchard Valley Health System [facility]02-08-2025 09:28-0500Body vniujhgjrwt47.4 [degF][facility]02-08-2025 09:28-0500Body uxuspg91.34 kgBlanchard Valley Health System [facility]02-08-2025 09:28-0500Diastolic blood rqdkljoi43 mm[Hg][facility]02-08-2025 09:28-0500 Heart rtur970 /[facility]02-08-2025 09:28-0500 Respiratory rate18 /[facility]02-08-2025 09:28-0500 SaO2% (BldA) [Mass fraction]94 %[facility]02-08-2025 09:28-0500Systolic blood oydoslug385 mm[Hg][facility] 01-09-2024 13:47-0400Body tlcguk473.7 cmJosh Escamillatrick TAILER IN Work Phone: [facility] CenterPcffxuzhob82-61-4695 13:47-0400Body mass index (BMI) [Ratio]31.17 kg/p0YkdakbkxJosh Campbellpatrick TAILER IN Work Phone: [facility] CenterIgqkdmixcs70-10-4482 13:47-0400Body temperature 96.21 [degF]Josh Hearn TAILER IN Work Phone: [facility] CenterEmjdeudugs28-63-4891 13:47-0400Body adhffw33.99 kgJosh Escamillatrick TAILER IN Work Phone: [facility] CenterTseadmnaxt00-57-7866 13:47-0400Diastolic blood myonlgeu12 mm[Hg]Josh Campbellpatrick TAILER IN Work Phone: [facility] CenterTxsbipbmii97-61-1083 13:47-0400Heart rate83 /min Joshchamp CampbellHearn TAILER IN Work Phone: [facility] CenterWhqenslced74-20-8793 13:47-0400Respiratory rate16 /minJosh Escamillatrick TAILER IN Work Phone: [facility] CenterEzxajqisdb60-02-4583 13:47-2472MeJ8% (BldA) [Mass fraction]98 %Josh Campbellpatrick TAILER IN Work Phone: [facility] CenterMtsozmbojd83-46-8535 13:47-0400Systolic blood uqktuzbp932 mm[Hg]Josh Escamillatrick TAILER IN Work Phone: [facility] CenterJcqwfnjqng46-08-3604 11:16-0400Body .72 cmBl[facility]ard [facility]09-28-2024 11:16-0400Body mass index (BMI) [Ratio]30.1 kg/y0BrzmhnmrnBlanchard Valley Health System [facility]09-28-2024 11:16-0400Body mfbfyyqsqwo03 [degF][facility]09-28-2024 11:16-0400Body kiqkvl44.92 kgBlanchard Valley Health System [facility]09-28-2024 11:16-0400Diastolic blood mm[Hg][facility]09-28-2024 11:16-0400 Heart btvj850 /[facility]09-28-2024 11:16-0400 Respiratory rate18 /[facility]09-28-2024 11:16-0400 SaO2% (BldA) [Mass fraction]95 %[facility]09-28-2024 11:16-0400Systolic blood nxefcicu095 mm[Hg][facility] 12-12-2023 14:42-0400Body pgocti511.7 cmJosh Campbellpatrick TAILER IN Work Phone: [facility] CenterYzhdrfwywf89-16-3718 14:42-0400Body mass index (BMI) [Ratio]30.11 kg/y4Otnijmak Hearn TAILER IN Work Phone: [facility] CenterZkbpumzocd73-03-0148 14:42-0400Body temperature 97.59 [degF]Josh Hearn TAILER IN Work Phone: [facility] CenterHrnsnyczyj66-03-7149 14:42-0400Body mlzayw22.81 kgJosh Escamillatrick TAILER IN Work Phone: [facility] CenterMxaonlbbsi96-83-2688 14:42-0400Diastolic blood jjisiebv94 mm[Hg]Josh Hearn TAILER IN Work Phone: [facility] CenterYpyxyhffme34-90-9007 14:42-0400Heart jxlc937 /min Josh Campbellpatrick TAILER IN Work Phone: [facility] CenterComment on above:94% F831-70-3549 14:42-0400Systolic blood ewywxqrj652 mm[Hg]Josh Hearn TAILER IN Work Phone: [facility] CenterAdgtoghmcs92-38-0430 14:44-0400Body zfiqvm287.72 cmBlanchard Valley Health [facility]08-02-2024 14:44-0400Body mass index (BMI) [Ratio]30.4 kg/l0MlqaxysvrBlanchard Valley Health System [facility]08-02-2024 14:44-0400Body zlmfliuwpit92.1 [degF][facility]08-02-2024 14:44-0400Body smxegn86.94 kgBlanchard Valley Health System [facility]08-02-2024 14:44-0400Diastolic blood pzmlziyh89 mm[Hg][facility]08-02-2024 14:44-0400 Heart rate80 /[facility]08-02-2024 14:44-0400 Respiratory rate18 /minBlanchard Valley Health System [facility]08-02-2024 14:44-0400 SaO2% (BldA) [Mass fraction]95 %[facility]08-02-2024 14:44-0400Systolic blood iiitzgoo120 mm[Hg][facility] 10-15-2023 12:58-0400Blood Pressure LocationJENNIFER MAXIMILIANO [facility]07-16-2024 12:58-0400Diastolic blood rhhnenvr24 mm[Hg]EWA MAXIMILIANO [facility]07-16-2024 12:58-0400Heart rate81 /minJENNIFER MAXIMILIANO [facility]07-16-2024 12:58-0400Respiratory rate16 /minJENNIFER MAXIMILIANO [facility]07-16-2024 12:58-0400Systolic blood opybmsso341 mm[Hg]EWA MAXIMILIANO [facility]12-19-2023 12:05-0500Body .72 cmAvarun Isbell Other [facility] [employer] Other 12-19-2023 12:05-0500Body mass index (BMI) [Ratio] 30.62 kg/m2Myrna Isbell Other [facility] [employer] Other 12-19-2023 12:05-0500Body qovnpibiifu44.9 [degF]Myrna Isbell Other [facility] [employer] Other 12-19-2023 12:05-0500Body mwvyjb88.36 kgMyrna Isbell Other [employer] Other 12-19-2023 12:05-0500Diastolic blood htjvajld737 mm[Hg]Myrna Isbell Other [employer] Other 12-19-2023 12:05-0500Respiratory rate18 /minMyrna Isbell Other [employer] Other 12-19-2023 12:05-0279FoE3% (BldA) [Mass fraction]96 % Mryna Isbell Other [employer] Other 12-19-2023 12:05-0500Systolic blood iecfyxlw443 mm[Hg] Myrna Isbell Other [employer] Other 12-14-2023 13:10-0500Body xliiih253.72 cmAmanda Igor Other [employer] Other 12-14-2023 13:10-0500Body mass index (BMI) [Ratio] 30.41 kg/i4Pdiuus Igor Other [employer] Other 12-14-2023 13:10-0500Body fqcaphenofz433.1 [degF] Magnolia Igor Other [employer] Other 12-14-2023 13:10-0500Body bgiezv58.72 kgAmanda Igor Other [employer] Other 12-14-2023 13:10-0500Diastolic blood eltwfziw44 mm[Hg] Magnolia Igor Other [employer] Other 12-14-2023 13:10-0500Respiratory rate18 /minAmanda Igor Other [place] [employer] Other 12-14-2023 13:10-9963ZvZ3% (BldA) [Mass fraction]96 % Magnolia Igor Other [facility] [employer] Other 12-14-2023 13:10-0500Systolic blood jqzvnemy875 mm[Hg] Magnolia Igor Other [facility] [employer] Other 07-19-2023 13:35-0400Blood Pressure LocationJENNIFER MAXIMILIANO [facility]07-19-2023 13:35-0400Diastolic blood netzosyx653 mm[Hg]EWA MAXIMLIIANO [facility]07-19-2023 13:35-0400Heart rate81 /minJENNIFER MAXIMILIANO [facility]07-19-2023 13:35-0400Systolic blood ovanhlab922 mm[Hg]EWA MAXIMILIANO [facility]01-16-2023 14:37-0500Blood Pressure LocationRobert RICE [facility]07-18-2022 14:30-0400Blood Pressure LocationRobert RICE [facility] 473971-65-3424 14:30-0400Diastolic blood mm[Hg] Murali RICE [facility] 07-18-2022 14:30-0400Heart rate67 /minRobert RICE [facility] [place] 07-18-2022 14:30-0400Respiratory rate16 /minRobert RICE [facility] [place] 07-18-2022 14:30-0400Systolic blood sdhiylpx416 mm[Hg] Murali SCOTT [facility] Encounters Encounter DateEncounter TypeCare ProviderFacilityStart: 12-24-2024 End: 82-43-1106lrxaykfwsqXwydyvh House DO Work Phone: [facility] Work Phone: Start: 12-24-2024 End: 52-73-8292Xdwkafv encounter procedureDamary ellen Garcia MD-[facility] Work Phone: Start: 12-09-2024 End: 78-86-0740jcxrhkkqvgBRTEOVE P HOUSEFacility:[facility] ClinicStart: 11-16-2024 End: 54-44-4845rudngyftkjZxxyowd [place] DO Work Phone: [facility] Work Phone: Start: 11-16-2024 End: 93-72-8890Kwvamyo encounter procedureJukellie Ayala DO-[facility] Work Phone: Start: 10-12-2024 End: 98-04-0076tqgaioobjiIVBWVLDJ E PERRYFacility:EU BellevueStart: 10-12-2024 End: 68-85-7289Cvkhrvu encounter procedureJENNIFER E MAXIMILIANO [facility] start: 68-96-1960fyuimdnsriZAHEKWXP PERRYFacility:[facility] HamiltonueStart: 10-08-2024 End: 03-91-8020illgdejgzaZuwzipx House DO Work Phone: [facility] Work Phone: Start: 10-08-2024 End: 99-48-8207Fsvjmws encounter procedureSharon Rodriguez SENIOR LICENSING MANAGER-[facility] Work Phone: Start: 57-19-2732Orh-patient / Non-visitNicole [facility] Work Phone: Start: 07-01-2024 End: 22-50-8865Njcmwd flowsheetEda Junior MD Work Phone: [facility] ENTStart: 07-01-2024 End: 13-70-6777Rviqjg Benny Junior MD Work Phone: [facility] ENTStart: 07-01-2024 End: 26-40-8938Txqowf outpatient new 45 minutesEda Junior MD Work Phone: [facility] ENTComment on above:LINSEY (obstructive sleep apnea) (Primary Dx); LPRD (laryngopharyngeal reflux disease)Start: 07-01-2024 End: 60-89-0888fzgzgctwxeZRKDEA H TIMMISNot AvailableStart: 06-10-2024 End: 06-93-4647mirlsgpjnnFUCJPRW P HOUSEFacility:[facility] ClinicStart: 05-14-2024 ambulatoryCHARLES P HOUSEFacility:[facility] ClinicStart: 05-09-2024 End: 82-17-6006obpgmijoamKfcbnlkth [facility] Work Phone: Start: 05-09-2024 End: 10-14-5490Lngrzfd encounter procedureFirdru Physician Group-[facility] Work Phone: Start: 03-09-2024 End: 43-62-9579Ofktfe flowsheetMaria B Apling TAILER IN Work Phone: [facility] ORTHOPAEDICSStart: 03-09-2024 End: 73-15-0536Xcgioa flowsheetMaria B Apling TAILER IN Work Phone: [facility] ORTHOPAEDICSStart: 03-09-2024 End: 99-20-7378Wsbjua outpatient visit 15 minutesMaria B Apling TAILER IN Work Phone: [facility] ORTHOPAEDICSComment on above:Left shoulder pain, unspecified chronicity (Primary Dx); Glenohumeral arthritis, left; Arthritis of left acromioclavicular joint; Impingement of left shoulderStart: 03-09-2024 End: 16-73-4628mpjuvgijocWVFYP B APLINGNot AvailableStart: 03-05-2024 End: 75-76-6738ZccgqhYpjgvfwaJuarez Hearn TAILER IN Work Phone: [facility] CWM FMComment on above:Seasonal allergiesStart: 02-17-2024 End: 27-49-2683Kpytzc flowsheetMaria B Apling TAILER IN Work Phone: [facility] ORTHOPAEDICSStart: 02-17-2024 End: 22-36-8230Gogcsy flowsheetMaria B Apling TAILER IN Work Phone: [facility] ORTHOPAEDICSStart: 02-17-2024 End: 36-85-0092Hnsnls outpatient new 45 minutesMaria B Apling TAILER IN Work Phone: [facility] CI ORTHOPAEDICSComment on above:Left shoulder pain, unspecified chronicity (Primary Dx); Glenohumeral arthritis, left; Arthritis of left acromioclavicular joint; Impingement of left shoulderStart: 02-17-2024 End: 51-02-9504txozahmbksPACGJ B APLINGNot AvailableStart: 01-16-2024 End: 26-16-4305diazdymuxpOPSOBIU P HOUSEFacility:[facility] ClinicStart: 01-09-2024 End: 34-70-5767Mdydkb flowsheetJosh Escamillatrick TAILER IN Work Phone: [facility] CWM FMStart: 01-09-2024 End: 68-96-0055Vhxvxa flowsheetJosh Escamillatrick TAILER IN Work Phone: [facility] CWM FMStart: 01-09-2024 End: 57-22-6995Ugpjee outpatient visit 15 minutesJosh Ontiverosk TAILER IN Work Phone: [facility] CWM FMComment on above:Gordon's palsy (Primary Dx) Start: 01-09-2024 End: 13-74-6759yfweuuhbglUTPTTSIS FITZPATRICKNot AvailableStart: 12-31-2023 End: 55-50-7141Hrfdgguzc department patient visitUCSF Medical Center Ambulatory PPGStart: 12-28-2023 End: 05-62-2322zzbwtcudynAdnszdtyoACMC Healthcare System Glen[facility] Work Phone: Start: 12-28-2023 End: 67-10-2573Lrqalen encounter procedureSloop Memorial Hospital Physician [facility] Work Phone: Start: 12-21-2023 End: 30-76-0801Yzterl OnlyJosh Ontiverosk TAILER IN Work Phone: [facility] CWM FMComment on above:Encounter for wellness examination in adult (Primary Dx)Start: 12-21-2023 End: 74-07-0672Hbiomws encounter statusJosh Ontiverosk TAILER IN Work Phone: [facility] Work Phone: Start: 12-12-2023 End: 84-94-9040Gjquler preventive medicine new patient 67yrs&>Josh Hearn TAILER IN Work Phone: [facility] CWM FMComment on above:Primary hypertension (CMS/HCC) (Primary Dx); Encounter for wellness examination in adult; Seasonal allergies; Seasonal allergic rhinitis, unspecified trigger; Screening for hyperlipidemia; Screening for diabetes mellitusStart: 12-12-2023 End: 09-35-5585ziqtpvrdruRCIDUHET FITCHARLAKNot AvailableStart: 12-12-2023 End: 83-37-6016Iedkoh flowsheetJosh Hearn TAILER IN Work Phone: [facility] CWM FMStart: 12-12-2023 End: 22-73-1383Aclmki flowsheetJosh Hearn TAILER IN Work Phone: [facility] CWM FMStart: 12-12-2023 End: 96-61-6881Vwgszqv encounter statusHannahgabi Hearn TAILER IN Work Phone: noms HealthcareStart: 11-01-2023 End: 65-40-5703tarxazkozqQkxnifhnxAultman [facility] Hospital Work Phone: Start: 11-01-2023 End: 96-44-4493Fkzduhs encounter procedureSloop Memorial Hospital Physician [facility] Work Phone: Start: 10-15-2023 End: 94-48-9328rgagrkoafeJONRYNWP E PERRYFacility:EU BellemilianoueStart: 10-15-2023 End: 57-77-3825Yzezfij encounter procedureJENNIFER E MAXIMILIANO [facility] start: 03-19-2023 End: 82-95-6804gbneagehorVfjr Hahn Other noTervela [employer] Other Start: 41-15-6380Louvte outpatient visit 15 minutes Myrna Avalos [facility] ClydeStart: 03-15-2023 End: 89-56-2248kqyiwqsrisRrewok Grob Other [employer] Other Start: 27-98-6136Uulooafsw encounterAmanda GrobFPG Urgent Care ClydeStart: 03-14-2023 End: 03-62-2039fondonaxkrAqdnpy Igor Other [facility] [employer] Other Start: 71-04-1373Cksxxv outpatient visit 15 minutes Magnolia GrobFPG Urgent Care ClydeStart: 10-17-2022 End: 80-58-4827Fnsjcql encounter procedureJEJESSYNIKKY RICHMOND [facility] start: 05-24-2022 End: 44-61-7321ntzvlyllypSV CHARLES WESLEY CHAPELFacility:K9Pxseo: 04-16-2022 End: 60-60-6870Ptfvpbq encounter procedureAnshujose CHAVEZ [facility] Start: 01-26-2022 End: 97-40-9325zmobrhtowiQJ MURALI Blancas RICEFacility:V1Ruqgb: 10-16-2021 End: 25-95-4326Sdqtrkb encounter procedureMurali CHAVEZ [facility] Start: 09-08-2021 End: 80-27-1434dzuwwgcmovGOBerna GONZALEZFacility:K2Gnpzj: 09-01-2021 End: 93-35-0160stzahsnowoDPMarcel GONZALEZFacility:J8Fxbev: 06-19-2018 End: 86-16-5916Bzfgdxx encounter procedureJACHIN Zapien FANHolmes County [facility] ClevelandStart: 05-29-2018 End: 27-30-0447Mihlxay encounter procedureJACHIN Zapien [facility] Procedures DateProcedureProcedure DetailPerforming ClinicianStart: 41-44-9544Xygahtdhlycbdl aspir&/inj major jt/bursa w/o usBrii Oconnor TAILER IN Work Phone: Start: 86-60-5600Zeqpdsvocephkz aspir&/inj major jt/bursa w/o usMaria B Apling TAILER IN Work Phone: Start: 78-34-0423Uyhxf shoulder complete minimum 2 viewsMaria B Apling TAILER IN Work Phone: Start: 32-47-0335DCV screeningDR FREDERICK HOUSEComment on above:Performed By: #### PSAD #### [facility] [address] [place] [address] Dr. Lazaro SamAppendectomyRobert RICE Decompression of median nerveRobert RICE Plan of Treatment DateCare ActivityDetailAuthorStart: 26-93-2877Cfxyflejkqfp Vaccine: 65+ Years (1 of 1 - PCV)Pneumococcal Vaccine: 65+ Years (1 of 1 - PCV)[facility]OMS HealthcareComment on above:Postponed from 09/04/2012 (Patient Refused)Start: 09-12-2025Medicare Annual Wellness (AWV)Medicare Annual Wellness (AWV)[facility]S HealthcareStart: 91-09-9695Lwayxexwd vaccinationInfluenza Vaccine (Season Ended)[facility] Start: 07-01-2024 End: 79-29-8335Fxrqmbf encounter olekahqoa43/02/2025 10:50 AM EDT Office Visit [facility] [address] [facility] [address] [place] [id number] Eda Junior MD [address] [facility] [address] [place] [address] ArrivedNOMS CI ENTComment on above:ArrivedStart: 03-12-2024 End: 54-02-7253Uaamwqw encounter ojfwsnqxe09/12/2024 3:30 PM EST Office Visit [facility] [address] [place] [address] Josh Hearn NP [address] [place] [address] [facility] FMStart: 03-09-2024 End: 27-14-5980Xqaqgct encounter procedureNOMS CI ORTHOPAEDICSComment on above: Left shoulder pain, unspecified chronicity (Primary Dx); Glenohumeral arthritis, left; Arthritis of left acromioclavicular joint; Impingement of left shoulderStart: 11-65-6788Miajmslel vaccinationInfluenza Vaccine (#1)NOMS HealthcareComment on above:Postponed from 12/01/2023 (Patient Refused)Start: 01-09-2024 End: 20-04-4669Qfnfzvj encounter tawexcfil41/10/2024 2:00 PM EDT Office Visit [facility] [address] [place] [address] Josh Hearn, LINA [address] [place] [address] ArrivedNOMS CWM FMComment on above:ArrivedStart: 12-21-2023 End: 61-28-760920164981-mkpweehwpdnfup D3 [Mass/volume] in Serum or PlasmaVitamin D 25 hydroxy Lab Routine Encounter for wellness examination in adult Expected: 12/21/2023 (Approximate), Expires: 12/20/2024[facility] Work Phone: Comment on above:Expected: 12/21/2023 (Approximate), Expires: 12/20/2024Start: 12-13-2023 End: 10-44-8138PTP W Auto Differential panel - BloodCBC and differential Lab Routine Primary hypertension (CMS/HCC) Expected: 12/13/2023 (Approximate), Expires: 12/12/2024NODE HealthcareComment on above:Expected: 12/13/2023 (Approximate), Expires: 12/12/2024Start: 12-13-2023 End: 67-57-7458Jctolwhyfeqpq metabolic 2000 panel - Serum or PlasmaComprehensive metabolic panel Lab Routine Primary hypertension (CMS/HCC) Screening for diabetes mellitus Expected: 12/13/2023 (Approximate), Expires: 12/12/2024NODE HealthcareComment on above:Expected: 12/13/2023 (Approximate), Expires: 12/12/2024Start: 12-13-2023 End: 63-77-4215Pdgpyfvonb A1c/Hemoglobin.total in BloodHemoglobin A1c Lab Routine Screening for diabetes mellitus Expected: 12/13/2023 (Approximate), Expires: 12/12/2024NODE HealthcareComment on above:Expected: 12/13/2023 (Approximate), Expires: 12/12/2024Start: 12-13-2023 End: 00-93-9655Snpfc 1996 panel - Serum or PlasmaLipid panel Lab Routine Primary hypertension ([facility]) Screening for hyperlipidemia Expected: 12/13/2023 (Approximate), Expires: 12/12/2024NODE HealthcareComment on above:Expected: 12/13/2023 (Approximate), Expires: 12/12/2024Start: 12-13-2023 End: 99-99-5356LLA W/REFLEX TO FT4TSH W/REFLEX TO FT4 Lab Routine Primary hypertension (CMS/HCC) Expected: 12/13/2023 (Approximate), Expires: 12/12/2024 [facility] Work Phone: Comment on above:Expected: 12/13/2023 (Approximate), Expires: 12/12/2024Start: 12-12-2023 End: 46-43-4744Skmsyzl encounter mfnptgsea58/12/2024 3:00 PM EDT Office Visit [facility] [address] [place] [address] Josh Hearn NP [address] [place] [address] [facility] FMComment on above:ArrivedStart: 12-01-2023 Influenza vaccinationInfluenza Vaccine (#1)[facility] HealthcareStart: 09-04-2012 Pneumococcal Vaccine: 65+ Years (1 of 1 - PCV)Pneumococcal Vaccine: 65+ Years (1 of 1 - PCV)[facility] HealthcareStart: 06-06-1948Medicare Annual Wellness (AWV) Medicare Annual Wellness (AWV)[facility]OMS HealthcareXR Shoulder - left [facility] Immunizations Immunization DateImmunizationNotesCare ViwvexalBjdiajyd07-48-9260SVQNEYG - Respiratory syncytial virus (RSV), vaccine, bivalent, protein subunit RSV prefusion F, diluent reconstituted, 0.5 mL, Viraj Hearn TAILER IN Work Phone: [facility] CenterYdxgsgbcut73-11-5617BEZO-LfN-5 (COVID-19) mRNA BNT-162b2 vaxRRateItAll [facility] Hospitalment on above:Result Comment: 2022-04-16: [id number]-AwC-7 (COVID-19) mRNA BNT-162b2 vaxRRateItAll [facility] [id number]-TxZ-5 (COVID-19) mRNA BNT-162b2 vax WindSim [facility]03-26-2021SARS-CoV-2 (COVID-19) mRNA-1273 vaccineRobert Myhomepage Ltd[employer] [facility] [id number]-BpS-7 (COVID-19) mRNA BNT-162b2 vax [employer] [facility]03-05-2021SARS-CoV-2 (COVID-19) mRNA-1273 vaccineRobert [employer] [facility] [id number] toxoid, reduced diphtheria toxoid, and acellular pertussis vaccine, adsorbedRobert RICE [facility]07-11-2013pneumococcal vaccine, unspecified formulationJosh Hearn TAILER IN Work Phone: [facility] Payers DatePayer CategoryPayerPolicy [id number] [facility] [id number] 2023-Present [address] [place] [address] [id number] Private Health [id number] [id number] [id number] [id number]. [id number] [id number] [id number] 2.840.1.701346.3.57[id number] 2.840.1.660067.3.57[id number] 2.840.1.137525.3.57[id number] 2.16840.1.966165.3.57[id number] 2.16.840.1.398799.3.57[id number] 2.16.840.1.408193.3.57[id number] 2.16.840.1.993479.3.57[id number] 2.16840.1.806666.3.57[id number] 2.16.840.1.467073.3.57[id number] 2.840.1.933581.3.57[id number] 2.840.1.046035.3.57[id number] 2.840.1.982323.3.57[id number] 2.840.1.643066.3.57[id number] 2.840.1.780808.3.57[id number] 2.0.1.754181.3.57[id number] 2.840.1.6[id number] 2.840.1.347274.19 Social History DateTypeDetailFacilityStart: 04-17-2021 End: 47-44-1365Rmatskc smoking statusNever smoked tobacco (finding)[facility] Tobacco smoking statusNeverExec[facility] of [facility] Start: 12-12-2023 End: 28-38-1114Tjx Assigned At [facility]theExec[facility] CHEQ[facility] Start: 58-30-2146Bwf Assigned At [facility] Hospitaltart: 96-96-7741Ujdanmt use and exposureSmokeless tobacco non-userNOMS HealthcareStart: 12-12-2023 End: 77-88-6717Iqactbtms beverage intakeLifetime non-drinker (finding)[facility] HealthcareStart: 12-12-2023 End: 56-90-3396Sryrfrf of Social functionNOMS HealthcareStart: 69-12-1547Xvi assigned at [facility] healthNot on fileSANPETE VALLEY [facility]OSPITAL HealthcareTobacco smoking status NHISTobacco smoking consumption unknownNODE HealthcareStart: 09-27-2018 End: 48-93-4567EqsAjkh (finding)[facility] Hospitalexual OrientationExec[facility] of [facility] CHEQROOM NEGATED: Highlighted rowStart: NINFHistory of tobacco usePassive smokerNODE Healthcare Functional Status WaxlYuwfhkvyjuMrdokaNyvszwrp90-31-8966Jfgmwzsrcr StatusN/AExec[facility]07-19-2023Functional StatusN/A[facility]01-16-2023Functional StatusN/A [facility]07-18-2022Functional StatusN/AExec[facility] CHEQ[facility]OM Clinical Notes 10-16-2021 to 10-12-2024 Note Date & VysqEpeaKtphrhob93-29-8069 Hospital Discharge instructions Patient Education 10/12/2024 13:29:44 Benign Prostatic Hyperplasia Benign Prostatic Hyperplasia Benign prostatic hyperplasia (BPH) is an enlarged prostate gland that is caused by the normal agingprocess. The prostate may get bigger as a man gets older. The condition is not caused by cancer. The prostate is a walnut-sized gland that is involved in the production of semen. It is located in front of the rectum and below the bladder. The bladder stores urine. The urethra carries stored urine ou t of the body. An enlarged prostate can press on the urethra. This can make it harder to pass urine. The buildup of urine in the bladder can cause infection. Back pressure and infection may progress to bladder damage and kidney (renal) failure. What are the causes? This condition is part of the normal aging process. However, not all men develop problems from thiscondition. If the prostate enlarges away from the [...] urethra. Follow these instructions at home: Take xjmt-bpp-qcaywin and prescription medicines only as told by [...] provider. Document Revised: 10/04/2021 Document Reviewed: 10/04/2021 [employer] Patient Education 2023 Apttus. Follow Up Care 04/15/2024 11:27:11 With:MAXIMILIANO MAIER, EWA Zapien, URL Address: [address] [place] [address]. [place] [address] When:Within 1 Year(s) [facility] 07-14-2025 Evaluation + Plan note Diagnostic Tests Pending * Testosterone Level Total 10/12/24 * Hemoglobin and Hematocrit 10/19/24 * Lipid Panel 10/19/24 * Hepatic Function Panel 10/19/24 * PSA Screen, Total 10/19/24 [facility] 07-14-2025 NotePatient Education Urology Benign Prostatic Hyperplasia Benign prostatic hyperplasia (BPH) is an enlarged prostate gland that is caused by the normal agingprocess. The prostate may get bigger as a man gets older. The condition is not caused by cancer. The prostate is a walnut-sized gland that is involved in the production of semen. It is located in front of the rectum and below the bladder. The bladder stores urine. The urethra carries stored urine ou t of the body. An enlarged prostate can press on the urethra. This can make it harder to pass urine. The buildup of urine in the bladder can cause infection. Back pressure and infection may progress to bladder damage and kidney (renal) failure. What are the causes? This condition is part of the normal aging process. However, not all men develop problems from thiscondition. If the prostate enlarges away from the [...] this procedure, a tool is inserted through theopening at the tip of the penis (urethra). [...] procedure uses radio frequencies to destroy and removea small amount of prostate tissue. ? Interstitial laser coagulation (ILC). This procedure uses a laser to destroy and remove a small amount of prostate tissue. ? Transurethral electrovaporization (TUVP). This procedure uses electrodes to destroy and remove a small amount of prostate tissue. ? Prostatic urethral lift. This procedure inserts an implant to push the lobes of the prostate awayfrom the urethra. Follow these instructions at home: ??? Take asdf-ukn-lxbscuz and prescription medicines only as told by [...] symptoms do not get (more content not included)...[facility]07-10-2025 Evaluation note* Diagnosis Onset Date Resolution Status Admit Date Insect bites noneactiveJuly 2024 11:28amPrimary osteoarthritis, left shoulderacute November 16, 2024 11:03am [facility] Work Phone: 1(982) 749-527507-10-2025 Evaluation note* Diagnosis Onset Date Resolution Status Admit Date Insect bites noneactiveJuly 2024 11:28amPrimary osteoarthritis, left shoulderacute November 16, 2024 11:03amCentral apneaacuteSeptember 2024 1:32pmChronic insomniaacuteSept2024 1:32pmHypnotic dependenceacuteSept2024 1:32pmObstructive sleep apneaacuteSept2024 1:32pm [facility] Work Phone: 1(973) 202-285804-02-2025 History of Present illness Narrative* Eda Junior MD - 07/01/2024 10:50 AM EDT Subjective Patient ID: Lamont Govea is a 78 y.o. male who presents [...] I also recommend pt be referred back toDr Quintanilla as his CPAP pressure is well below the titrated pressure documented in this encounterUniversity Health Truman Medical CenterRavgfkczxa83-86-7155 History of Present illness Narrative* Brii Oconnor NP - 03/09/2024 10:00 AM ESTAssociated Order(s): L Inj/Asp: L subacromial bursa Post-Procedure Diagnose(s): Impingement of left shoulder Images from the original note were not included. Subjective Patient ID: Lamont Govea is a 78 y.o. male. LT Shoulder [...] pt tolerated well, bandaid applied, may do acti vities as tolerated, f/U prn documented in this encounterUniversity Health Truman Medical CenterYjrtdtrcps22-25-0274 History of Present illness Narrative* Brii Oconnor NP - 02/17/2024 11:15 AM ESTAssociated Order(s): L Inj/Asp: L subacromial bursa Post-Procedure Diagnose(s): Impingement of left shoulder Images from the original note were not included. Subjective Patient ID: Lamont Govea is a 78 y.o. male. LT Shoulder [...] Advanced arthritis of the glenohumeral joint. 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 Was seen in Ed on 12/31/23; Dx with [place] Palsy. Had a sinusinfection the weeks prior; [...] advice from provider first. Pt verbalized understanding. * Josh Hearn NP - 01/09/2024 2:00 PM EDT Images from the original note were not included. Subjective Patient ID: Lamont Govea is a 78 y.o. male who presents for Follow-up. HPI Was in ED for [place] Palsy on 12/31/2023- Had a sinus infection [...] concentration and suicidal ideas. The patient is notnervous/anxious. Hematological: Does not bruise/bleed easily. Endocrine: Negative [...] seen in Ed on 12/31/23; Dx with [place] Palsy. Had a sinusinfection the weeks prior; [...] first. Pt verbalized understanding. documented in this encounterUniversity Health Truman Medical CenterGsedrzohxp50-25-2966 History of Present illness Narrative* Josh Hearn NP - 12/13/2023 12:50 PM EDTAssociated Problem(s): Seasonal allergic rhinitis Ringing in ears has been ongoing for several years. Admits: Sinus congestion Runny nose Post nasal drip Initiated Flonase and cetirizine for allergy symptoms. Advised pt to continue this regimen, if no relief by next OV we can consider next steps such as ENT referral for tinnitus. * Josh Hearn NP - 12/13/2023 12:47 PM EDTAssociated Problem(s): Primary hypertension (CMS/HCC) Pt was previously [...] will re-evaluate medication regimen at next visit. * Josh Hearn NP - 12/12/2023 3:00 PM EDT Images from the original note were not included. Subjective Patient ID: Lamont Govea is a 78 y.o. male who presents for [facility] Care (/). HPI Specialists: Neurology- [facility] Urology- Dr. Richmond HTN: Pt changed medication regimen himself to [...] Neurological: Negative for dizziness, tremors, syncope, weakness, light- headedness and headaches. Psychiatric/Behavioral: Negative for decreased concentration [...] (Diovan) 80 MG tablet documented in this [facility]09-12-2024 Instructions* Patient Instructions* Josh Hearn NP - 12/12/2023 3:00 PM [...] and dinner. Avoid snacking. Avoid eating after 5/6pm. Daily protein GOAL 35% of your intake; [...] of sleep per night. documented in this [facility]07-16-2024 Hospital Discharge instructions Patient Education 10/15/2023 13:38:59 [...] therapy. Follow these instructions at home: Take uwtn-yrn-meiotnx and prescription medicines only as told by [...] provider. Document Revised: 11/17/2020 Document Reviewed: 11/17/2020 [employer] Patient Education 2022 Apttus. Follow Up Care 10/17/2022 15:04:57 With:MAXIMILIANO MAIEREWA, URL Address: [address] [place] [address] [phone] When: Unknown Comments:1 year w/ PSA, LFTs, Lipids, H&H, total T level [facility] 07-16-2024 Evaluation + Plan note Diagnostic Tests Pending * Testosterone Level Total 10/15/23 * Hepatic Function Panel 10/15/23 * Lipid Panel 10/15/23 * Hemoglobin and Hematocrit 10/15/23 * PSA Total 10/15/23 [facility] 07-16-2024 NotePatient Education Urology Hypogonadism, Male Male hypogonadism is [...] testosterone levels. This includes blood tests. Testosterone levelscan change throughout the day. Levels are highest in the morning. You may need to have repeat bloodtests before getting a diagnosis of hypogonadism. Depending [...] Follow these instructions at home: ? Take rfmg-zmm-nwentjc and prescription medicines only as told by [...] age is the most common cause of thiscondition. ? Low testosterone can also be caused by many diseases and conditions that affect the testicles andthe making of testosterone. ? This condition is treated with testosterone replacement therapy. ? There are risks and side effects of testosterone therapy. Your health care provider will consideryour age, medical history, symptoms, and risks for prostate cancer before putting you on testosterone therapy. This information is not intended to replace advice given to you by your health care provider. Make sure you discuss any questions you have with your health care provider. Document Revised: (more content not included)...[facility] 03-19-2023 Evaluation note* Encounter Date Diagnosis Assessment Notes Treatment Notes Treatment Clinical Notes Mar, Acute non-recurrent pansinusitis (ICD-10 - J01.40) Will tx tody for bacterial sinusitis based on physical exam and duration of symptoms. Previously onz-pack, will switch to Augmentin. Take antibiotic as prescribed, complete entire course of therapy even if symptoms resolve. Encouraged Mucinex. Supportive care as directed, push fluids and rest, Tyle nol/Motrin as directed for aches/fever, warm moist compress over sinuses several times a day, cool mist humidifier, nasal saline spray as directed. Symptoms should improve in the next 3 days, if symptoms persist follow up with PCP. Immediate eval for warning s/sx as discussed. Patient verbalizes understanding and is agreeable to treatment plan. Mar,Elevated blood pressure reading (ICD-10 - R03.0)Discussed elevated BP. known hx of HTN. Is waiting to be seen by new PCP this month. He does monitor at home and earlier today 120s/80s, he reports white coat syndrome. [facility] Other 12-14-2023 Evaluation note* Encounter Date Diagnosis Assessment Notes Treatment Notes Treatment Clinical Notes Mar, Sore throat (ICD-10 - J02.9) Mar,cute viral pharyngitis (ICD-10 - J02.9) Patient is a 77 yo male who presents to urgent care with complaints of fever, chills, sore throat, congestion, post nasal drip and ear pain for the past seeral days. He denies chest pain, shoretness of breath, or difficulty breathing. DDX includes strep., covid, flu, viral URI, viral pharyngitis. Barrera solis tested negative for covid, strep and flu. [...] if shortness of breath, chest pain occur. Mar,ontact with and (suspected) exposure to covid-19 (ICD-10 - Z20.822) [facility] Other 07-19-2023 Hospital Discharge instructions Patient Education [...] therapy. Follow these instructions at home: Take pcsm-xmq-vxgxidk and prescription medicines only as told by [...] provider. Document Revised: 11/17/2020 Document Reviewed: 11/17/2020 [employer] Patient Education 2022 Apttus. Follow Up Care 08/31/2022 12:38:12 With:MAXIMILIANO MAIER, EWA Zapien, URL [facility]: [address] [address] [place] [address] When: Unknown [facility] 01-16-2023 Hospital Discharge instructions Patient Education [...] 06/24/2001 Document Revised: 07/09/2019 Document Reviewed: 02/11/2017 [employer] Patient Education 2019 Apttus. Follow Up Care 10/16/2021 15:07:22 With:SCOTT HOANG, Murali W, URL Address: [address] [place], [place] [id number]- When:6 months Comments:PSA & testosterone [facility] 07-18-2022 Hospital Discharge instructions Patient Education 10/16/2021 [...] urethra. Follow these instructions at home: Take jfhv-agu-bkihsds and prescription medicines only as told by [...] 03/18/2006 Document Revised: 02/10/2019 Document Reviewed: 04/22/2017 [employer] Patient Education 2020 Apttus. Follow Up Care 04/17/2021 14:02:48 With:Murali CHAVEZ MD, URL Address: [address] [place] [address]- When:3 months Comments:Testosterone level [facility] Evaluation + Plan note Future Appointments Appointment Date:04/16/2022 02:15:00 PM Scheduled Provider:Murali CHAVEZ MD Location:[facility] Appointment Type:URO Office Visit Diagnostic Tests Pending * Testosterone Level Total 10/16/21 [facility] Evaluation + Plan note Future Appointments Appointment Date:10/15/2022 02:15:00 PM Scheduled Provider:Murali CHAVEZ MD Location:[facility] Appointment Type:URO Office Visit Diagnostic Tests Pending * PSA Total 04/16/22 * Testosterone Level Total 04/16/22 [facility] [address] Evaluation + Plan note Future Appointments Appointment Date:10/23/2023 01:20:00 PM Scheduled Provider:EWA RICHMOND PA-C Location:[facility] Appointment Type:URO Office Visit Diagnostic Tests Pending * PSA Total 08/31/23 * Testosterone Level Total 10/17/22 * Hemoglobin and Hematocrit 08/31/23 * Hepatic Function Panel 08/31/23 * Lipid Panel 08/31/23 [facility] evaluation noteNo [facility] Other evaluation note* Diagnosis Onset Date Resolution Status Bee sting reaction acute [facility] Work Phone: evaluation note* Diagnosis Onset Date Resolution Status Bee sting reaction acuteAcute maxillary sinusitis, unspecifiedacute [facility] Work Phone: evaluation note* Diagnosis Primary hypertension [...] of left shoulder documented in this encounter [facility] HealthcareEvaluation note* Diagnosis Primary hypertension (CMS/HCC)- Primary Unspecified essential hypertension Encounter for wellness examination in adult Seasonal allergies Allergic rhinitis, cause unspecified Seasonal allergic rhinitis, unspecified trigger Screening for hyperlipidemia Screening for lipoid disorders Screening for diabetes mellitus documented in this encounter [facility] HealthcareEvaluation note* Diagnosis Primary hypertension (CMS/HCC)- Primary Unspecified essential hypertension Encounter for wellness examination in adult Seasonal allergies Allergic rhinitis, cause unspecified Seasonal allergic rhinitis, unspecified trigger Screening for hyperlipidemia Screening for lipoid disorders Screening for diabetes mellitus Gordon's palsy- Primary Left shoulder pain, unspecified chronicity- Primary Glenohumeral arthritis, left Arthritis of left acromioclavicular joint Impingement of left shoulder documented in this encounter [facility] HealthcareEvaluation note* Diagnosis Encounter for wellness examination in adult- Primary documented in this encounter [facility] HealthcareEvaluation note* Diagnosis Onset Date Resolution Status Admit Date Bronchitis acuteFebruary 2024 9:08am [facility] Work Phone: Evaluation note* Diagnosis Primary hypertension [...] mention of obstruction documented in this encounter [facility] HealthcareEvaluation noteNo assessment information availableKind[facility] Work [facility]: History general Narrative - Reported* Type Description Date Medical History glaucoma Medical HistoryinsomniaMedical HistoryGERD (gastroesophageal reflux disease) Medical HistoryHypothyroidismSurgical HistorytonsillectomySurgical History appendectomySurgical Historycarpal tunnel release rightHospitalization History see above [employer] Other Hospital course Narrative No data available for this section [facility] [place] Progress note No data available for this section [facility] Reason for referral (narrative)No reason for referral information availableKind[facility] Work Phone: Summary Purpose Family History Relationship Condition Age at Onset Recorded Date/T mason father Unknown motherDeceasedUnknown Advance Directives Advance Directive Response Recorded Date/ Time Advance Directives No October 31 2:36pm Advance Directive Response Recorded Date/ Time Advance Directives No October 31 1:36pm Chief Complaint and Reason for Visit Chief Complaint bug bite on left bearden d,foot Reason for Visit Bee sting reaction Chief Complaint bug bite on left bearden d,foot cough,congestionReason for VisitBee sting reaction Acute maxillary sinusitis, unspecified Chief Complaint Admit Date Sinus congestion, cough May 09 9:08am Reason for Visit Admit Date Bronchitis May 09, 2024 9 :08am Chief Complaint Admit Date Bug Bites on Legs October 08, 2024 11:2 8am Chief Complaint Admit Date Bug Bites on Legs October 08, 2024 11:2 8am [facility] November 16, 2024 11:03am Reason for Visit Admit Date Insect bites October 08, 2024 11:2 8am Primary osteoarthritis, left shoulder Au carla 2024 11:03am Chief Complaint Admit Date Bug Bites on Legs October 08, 2024 11:2 8am [facility] NX November 16, 2024 11:03am G47.33 December 24, 2024 1:32pm Reason for Visit Admit Date Insect bites October 08, 2024 11:2 8am Primary osteoarthritis, left shoulder Au carla 2024 11:03am Central apnea December 24, 2024 1:32pm Chronic insomnia December 24, 2024 1:32pm Hypnotic dependence December 24, 2024 1:32pm Obstructive sleep apnea December 24, 2024 1:32pm Additional Source Comments (unrecognized sect ion and content) No Status Records FoundNo Status Records FoundNo Status Records FoundNo Status Records FoundNo Status Records FoundNo Status Records Found INFORMATION SOURCE (unrecogn ized section and content) DATE CREATED AUTHOR 06/20/2018 [facility] DATE CREATED AUTHOR AUTHOR'S ORGANIZ ATION 05/29/2022 [facility] DATE CREATED AUTHOR AUTHOR'S ORGANIZ ATION 01/05/[address] [facility] DATE CREATED AUTHOR AUTHOR'S ORGANIZ ATION 07/04/2024 [facility] DATE CREATED AUTHOR AUTHOR'S ORGANIZ ATION 10/14/2024 [facility] DATE CREATED AUTHOR AUTHOR'S ORGANIZ ATION 12/11/2024 [facility] Care Team (unrecognized sect ion and content) Team Status: Active Member Role Status Dates rFederick Gonzalez DO Primary Care Provider Active Team Status: Active Member Role Status Dates Frederick Gonzalez DO Primary Care Provider Active Start: October 07, 2024 Good Cai ProviderActiveStart: October 07, 2024 Team Status: Inactive Member Role Status Dates Frederick Gonzalez DO Primary Care Provider Active Start: October 08, 2024 End: October 08Darlyn Boykin ProviderActiveStart: October 08, 2024 End: October 08, 2024 Team Status: Inactive Member Role Status Dates Frederick Gonzalez DO Primary Care Provider Active Start: November 16, 2024 End: November 16, 2024Good Valdes ProviderActiveStart: November 16, 2024 End: November 16, 2024 Team Status: Active Member Role Status Dates PHYSICIAN NO FAMILY Primary Care Provider Active Team Status: Inactive Member Role Status Dates PHYSICIAN NO FAMILY Primary Care Provider Active Start: November 01, 2023 End: October 31kirk Costa APRNAtdawna ProviderActiveStart: November 01, 2023 End: November 01, 2023 Team Status: Inactive Member Role Status Dates PHYSICIAN NO FAMILY Primary Care Provider Active Start: December 28, 2023 End: December 28, 2023Darlyn Clay ProviderActiveStart: December 28, 2023 End: December 28, 2023Team MemberRelationshipSpecialtyStart DateEnd Date Roddy Orona MD [address] [place] [address] PCP - GeneralFamily Medicine12/09/23 Josh Hearn NP [address] [place] [address] Nurse Practitionermily Medicine12/09/23Team MemberRelationshipSpecialtyStart DateEnd Date Roddy Orona MD [address] [place] [address] PCP - GeneralFamily Medicine12/09/23 Josh Hearn NP [address] [place] [address] [facility]12/09/23Team MemberRelationshipSpecialtyStart DateEnd Date Frederick Gonzalez MD [address] [place] [address] PCP - GeneralFamily Qryefwex07/18/24Team MemberRelationshipSpecialtyStart Date End Date Frederick Gonzalez MD [facility] [place] [address] PCP - GeneralFamily Ophjseif71/18/24Team MemberRelationshipSpecialtyStart Date End Date Frederick Gonzalez MD [facility] [place] [address] PCP - GeneralFamily Wdffjhcv57/18/24Team MemberRelationshipSpecialtyStart Date End Date Roddy Orona MD [address] [place] [address] PCP - GeneralFamily Medicine12/09/23 Josh Hearn, [place] [address] [place] [address] Nurse Practitionermily Medicine12/09/23Team MemberRelationshipSpecialtyStart DateEnd Date Roddy Orona MD [address] [place] [phone] PCP - GeneralFamily Medicine12/09/23 Josh Hearn NP [address] [place] [address] Nurse Pract[facility]er[facility]12/09/23Team MemberRelationshipSpecialtyStart DateEnd Date Frederick Gonzalez MD [facility] [place] [address] PCP - [facility]Kn[facility]ics[facility] Brkbprds29/18/24Team MemberRelationshipSpecialtyStart Date End Date Frederick Gonzalez MD [facility] [place] [address] PCP - Generalmily Xiipatpx31/18/24Team MemberRelationshipSpecialtyStart Date End Date Roddy Orona MD [address] [place] [phone] PCP - GeneralFamily Medicine12/09/23 Josh Hearn, LINA [address] [place] [address] [facility]12/09/23 Team Status: Inactive Member Role Status Dates Frederick Gonzalez DO Primary Care Provider Active Start: May 09, 2024 End: May 09Darlyn Posadas ProviderActiveStart: May 09, 2024 End: May 09, 2024Team MemberRelationshipSpecialtyStart DateEnd Date Frederick Gonzalez MD [address] [place] [address] PCP - [facility]02/17/24Team MemberRelationshipSpecialtyStart Date End Date Frederick Gonzalez MD [address] [place] [address] PCP - [facility]02/17/24 Team Status: Inactive Member Role Status Dates Frederick Gonzalez DO Primary Care Provider Active Start: December 24, 2024 End: December 24, 2024DaLove Person ProviderActiveStart: December 24, 2024 End: December 24, 2024 REASON FOR VISIT (unrecogniz ed section and content) ReasonCommentsFollow-upReasonCommentsPainReasonCommentsMed RefillReasonComments Establish CareReasonCommentsFollow-upReasonCommentsSinusitis Goals (unrecognized section and content) Goals may [...] BE BASED ON THE PRIMARY CLINICAL RECORDS. [employer] [facility]. provides no warranty or guarantee of the accuracy or completeness of information in this document.
--- NOTE | 2025-02-08 12:55 | PM.CN ---
Consult Note: HPI Data of Consult Patient: new to practice Consult date: 02/08/25 Requesting Physician: David Jones MD Primary Care Provider: GHAZAL GONZALEZ Consult Narrative Reason for consult: left shoulder pain Narrative: 79yom who presents for evaluation. longstanding left shoulder pain that has progressively worsened. has seen ortho and had multiple steroid injections, which initially helped. now ortho recommends total shoulder replacement, though he is hesitant given his very active lifestyle. has completed chiropractic therapy, physical therapy, home exercises >6 weeks, without lasting benefit. imaging shows fairly severe osteoarthritic changes. uses muscle relaxer. denies adverse med side effects. cc:: CC: David Jones MD Review of Systems ROS Status of ROS 10 or more systems reviewed and unremarkable except as noted in history and below PFSH PFSH Social History Little interest or pleasure in doing things: not at all Feeling down, depressed, or hopeless: not at all Meds Home Medications and Allergies Home Medications ?Medication ?Instructions ?Recorded ?Confirmed ?Type loratadine 10 mg tablet (Allergy 10 mg PO Q24H 12/31/23 12/31/23 History Relief (loratadine)) methylprednisolone 4 mg tablets in See Rx Instructions .Route 12/31/23 Rx a dose pack (Medrol (Jean-Claude)) .COMPLEX #21 ea testosterone cypionate 100 mg/mL 100 mg subcut Q7D 12/31/23 12/31/23 History intramuscular oil timolol maleate 0.25 % eye drops 1 drp ophthalmic (eye) DAILY 12/31/23 12/31/23 History valsartan 80 mg tablet 80 mg PO DAILY 12/31/23 12/31/23 History zolpidem 12.5 mg tablet,extended 12.5 mg PO DAILY 12/31/23 12/31/23 History release,multiphase Allergies Allergy/AdvReac Type Severity Reaction Status Date / Time No Known Drug Allergies Allergy Verified 11/02/23 09:36 Exam Narrative Exam Narrative: Psych-alert and oriented x 3.? Attentive and appropriate, constitutionally normal, displays normal mood and affect per situation.? There are no obvious deficits in memory, reasoning, or intellect.? Skin-no obvious rashes, bruising, or erythema noted to the patient's area of pain. Extremities-upper extremities are warm with minimal edema and palpable pulses. Cervical- tenderness to palpation noted in the cervical spine and paraspinal musculature.? Pain is elicited with extension, and lateral rotation of the cervical spine.? Range of motion is slightly diminished due to pain. Shoulder - tender to palpation in left shoulder. Pain with abduction, external rotation of left shoulder. Coordination remains intact.? Gait remains non-antalgic. Assessment and Plan Assessment and Plan (1) Primary osteoarthritis, left shoulder: (2) Left shoulder pain: Qualifiers: Chronicity: chronic Qualified Code(s): M25.512 - Pain in left shoulder; G89.29 - Other chronic pain Plan 79yom who presents for evaluation. failed conservative measures, as noted. imaging reviewed, as noted. given symptoms and imaging, prudent to attempt left suprascapular and axillary nerve block under fluoroscopic guidance with intention of proceeding to radiofrequency ablation. he is in agreement. meds reviewed. will trial gabapentin 300mg bid. follow up after procedure.
== END 2025-02-08 11:54 | disposition home or self-care (01) ==
LOC: PM 11:54
PROVIDERS: PCP Family Medicine; Visit Provider Anesthesiology
DX: M19.012 Primary osteoarthritis, left shoulder (principal); M25.512 Pain in left shoulder; G89.29 Other chronic pain
CPT/HCPCS: G0463

== ENCOUNTER 2025-02-15 07:16 | Day surgery (SDC) | payer MEDICARE, OTHER, SELFPAY ==
--- OUTSIDE RECORDS SUMMARY | 2025-02-15 07:20 | XMS_ITS | CCD ---
Author Organization [facility] Care Team Providers Care Clinical Partner Name Role Phone NARCISO MARINELLI Attending Unavailable RICE, MURLAI Blancas Referring Unavailable FANNING, NARCISO Zapien Referring Unavailable FANNING, NARCISO Zapien Attending Unavailable RUPERTO BLAS Referring Unavailab Frederick Villafuerte Primary Care Physician [phone] LISA, DR HARMAN Primary Care Unavailable RICE, DR MURALI Blancas Consulting Unavailable RICE, DR MURALI Blancas Admitting Unavailable RICE, DR MURALI Blancas Attending Unavailable HOUSE, DR HARMAN Admitting Unavailable HOUSE, DR HARMAN Attending Unavailable HOUSE, DR HARMAN Consulting Unavailable LISA, DR HARMAN Primary Care Unavailable RICE, DR MURALI Blancas Attending Unavailable HOUSE, DR HARMAN Primary Care Unavailable RICE, DR MURALI Blancas Consulting Unavailable RICE, DR MURALI Blancas Admitting Unavailable HOUSE, DR HARMAN Primary Care Unavailable RICE, DR MURALI Blancas Attending Unavailable RICE, DR MURALI Blancas Consulting Unavailable RICE, DR MURALI Blanacs Admitting Unavailable Magnolia Costa Unavailable Myrna Isbell Unavailable ERASMO RUSS Consulting Unavailab le INPATIENT, TELENEUROLOGY Consulting Unavail able Roddy Orona MD Primary Care Provider Josh Hearn NP Unavailable [phone] Frederick Gonzalez MD Primary Care Provider EDA JUNIOR Attending Unavailable JOSH HEARN Attending UnavailJOSH Chavez Attending UnavailBRII Trivedi Attending Unavailable BRII OCONNOR Referring Unavailable BRII OCONNOR Attending Unavailable Frederick Gonzalez DO Primary Care Provider [phone] Sharon Rodriguez APRN Attending Provider FREDERICK GONZALEZ Primary Care Physician EWA RICHMOND Attending Unavailable EWA RICHMOND Attending Unavailable House Frederick Primary Care Provider [phone] Nancy Quintanilla DO Attending Provider Jun Ayala DO Attending Provider [phone] Jose HOANG, Eloy Whittaker Attending Provider HOUSE, DO FREDERICK P Attending Unavailable HOUSE, FREDERICK P Primary Care Unavailable HOUSE, FREDERICK P Primary Care Unavailable HOUSE, DO FREDERICK P Attending Unavailable HOUSE, DO FREDERICK P Attending Unavailable HOUSE, FREDERICK P Primary Care Unavailable Karen HOANG, David Katz Attending Unavailable Allergies Allergy ClassificationReported Allergen(s)Allergy TypeDate of OnsetReaction(s) Facility (1 source)No Known Medication Allergies; 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: [No Known Medication Allergies]Propensity to adverse reactions (disorder)[facility] Repository Medications Current Medications MedicationDrug Class(es)DatesSig (Normalized)Sig (Original)sensor 200 actuat albuterol 0.09 mg/actuat dry powder inhaler (6 sources)beta2-Adrenergic AgonistStart: 02-62-2614hqisffepn (ProAir Digihaler) 90 mcg/act breath-activated inhaler (w/ sensor) 0 Refill(s) 5Active Start: 78-72-7180Btwwcuxqt Sulfate 90 mcg/actuation HFA aerosol inhaler Active 2 INH INHALATION EVERY 4-6 HOURS as needed for shortness of breath or wheezing 6.7 May 09, 2024 1:00am Complies with drug therapyAlbuterol Sulfate 90 mcg/actuation HFA aerosol inhaler (1 source)Start: 97-94-2634Fyvtcnlev Sulfate 90 mcg/actuation HFA aerosol inhaler Active 2 INH INHALATION EVERY 4-6 HOURS as needed for shortness of breath or wheezing 6.7 May 09, 2024 12:00amALPRAZolam 0.5 mg oral tablet (3 sources)BenzodiazepineStart: 36-64-8415YVXFTDxtoz (Xanax) 0.5 MG tablet 0.5 mg 05/14/2024 ActiveamLODIPine 5 mg oral tablet (1 source)Dihydropyridine Calcium Channel BlockerStart: 53-01-4024xlic 1 tablet by mouth once dailyAmlodipine 5 mg tablet Active 5 MG PO Daily December 24, 2024 12:00am Complies with drug therapyazithromycin 250 mg oral tablet (2 sources)Macrolide AntimicrobialStart: 76-05-5296Lsxslfjgs Z-Jean-Claude 250 MG as directed Orally Mar, Activecholecalciferol (Vitamin D3) 200 Unit tablet split tablet (16 sources)cholecalciferol (Vitamin D3) 200 Unit tablet split tablet Take by mouth Activedoxycycline hyclate 100 mg oral capsule (3 sources)Tetracycline-class DrugStart: 06-10-2024 End: 37-68-2560hfgtdemjxse (Vibramycin) 100 MG capsule 100 mg 06/10/2024 07/01/2024 Discontinued (Therapy completed)famotidine 20 mg oral tablet (2 sources)Histamine-2 Receptor AntagonistStart: 07-01-2024 End: 43-11-5745ysns 1 tablet by mouth at bedtimefamotidine (Pepcid) 20 MG tablet Indications: LPRD (laryngopharyngeal reflux disease) Take 1 tablet(20 mg) by mouth at bedtime 90 tablet 07/01/2024 09/29/2024 Activefluticasone propionate 0.05 mg/actuat metered dose nasal spray (20 sources)CorticosteroidStart: 12-12-2023 End: 02-48-2459Fudehkxltmo Propionate 50 mcg/actuation spray,suspension Active INTRANASAL December 28, 2023 12:00am Complies with drug therapylevothyroxine sodium 0.075 mg oral tablet (6 sources)l-ThyroxineStart: 02-73-4693msdo 1 tablet by mouth once daily levothyroxine [...] mg oral tablet (20 sources)Start: 12-28-2023 End: 10-08-3174blhr 1 tablet by mouth once dailyLoratadine (Allergy Relief (Loratadine)) 10 mg tablet Active 10 MG PO Daily December 28, 2023 12:00am Complies with drug therapyStart: 12-12-2023 End: 97-80-1220glwg 1 capsule by mouth at bedtimeLoratadine 10 MG capsule Indications: Seasonal allergies Take 10 mg by mouth at bedtime 30 capsule 2 12/12/2023 03/05/2024 Discontinuedomeprazole 20 mg delayed release oral tablet (20 sources)Proton Pump InhibitorStart: 28-27-2804sxlc 1 tablet by mouth once dailyOmeprazole Magnesium (Prilosec Otc) 20 mg tablet,delayed release (DR/EC) Active 20 MG PO Daily December 24, 2024 12:00am Complies with drug therapy Start: 07-01-2024 End: 05-08-2755spuf 1 capsule by mouth before mealtimeomeprazole (PriLOSEC) [address] capsule Indications: LPRD (laryngopharyngeal reflux disease) Take 1 c apsule (40 mg) by mouth in the morning. Take before meals. Do not crush or chew.. 90 capsule 07/01/2024 09/29/2024 ActiveStart: 12-29-2018 End: 60-76-4597edio 1 capsule by mouth once dailyOmeprazole 10 mg capsule,delayed release(DR/EC) Discontinued 10 MG PO Daily November 01, 2023 12:00am December 24, 2024 2:08pm End: 69-94-3310gmboseunht OTC (PriLOSEC OTC) 20 MG EC tablet Prilosec OTC 10mg QD 07/01/2024 Discontinued (Therapycompleted)take 1 capsule by mouth once daily PriLOSEC 10 MG 1 capsule 30 minutes before morning meal Orally Once a day Active predniSONE (8 sources)Start: 62-70-0036fgfsudZEAE 10 mg Tab See Instructions, Refills(s) 0 Start Date: 10/12/24 Status: Ordered Repeat number: 1Start: 10-08-2024 End: 68-48-2564Kxzsfijrdb 10 mg tablet Discontinued 10 MG PO As Directed 20 12October 08, 2024 12:00am December 24, 2024 2:07pm 4 tablets x 3 days, 2 tablets x 3 days, 1 tablet x 3 daysStart: 05-09-2024 End: 71-38-2243agrf 2 tablets by mouth once dailyPrednisone 20 mg tablet Discontinued 40 MG PO Daily 6 May 09, 2024 1:00am December 24, 2024 2:07pmtadalafil 5 mg oral tablet (20 sources)Phosphodiesterase 5 InhibitorStart: 46-12-2862aepd 1 tablet by mouth once dailyTadalafil 5 mg tablet Active 5 MG PO Daily December 24, 2024 12:00am Complies with drug therapyStart: 18-84-2792agxq 1 tablet by mouth once dailyCialis 5 mg oral tablet 5 mg = 1 tab(s), Oral, Daily Start Date: 10/23/18 Status: Ordered Repeat number: 1Temazepam (8 sources)BenzodiazepineStart: 38-04-0691stvbirqwh 30 mg Start Date: 12/25/18 Status: Orderedtemazepam (Restoril) 30 MG capsule Take by mouth Daily as needed ActiveTemazepam Not-Taking/PRNtestosterone cypionate 100 mg/ml injectable solution (16 sources)AndrogenStart: 42-36-1305Yzopyaxbzqcc Cypionate 100 mg/mL oil Active 50 MG IM .Q5November 01, 2023 12:00am Complies withdrug therapyStart: 38-22-9510Ighqohesruuj Cypionate Active 50 MG IM .Q5November 01, 2023 12:00amStart: 32-98-1623gohovtcaeeve cypionate 100 mg/mL intramuscular solution 50 mg, IntraMuscular, q5day, # 10 mL, Refills(s) 5, Pharmacy: [id number], 172, cm, 10/17/22 13:50:00 EDT, Height/Length Dosing,95, kg, 10/17/22 13:50:00 EDT, Weight Dosing Start Date: 09/17/23 Status: OrderedStart: 10-17-2022 testosterone cypionate 100 mg/mL intramuscular solution 50 mg, IntraMuscular, q5day, # 10 mL, Refills(s) 5, Pharmacy: [id number], 172, cm, 10/17/22 13:50:00 EDT, Height/Length Dosing,95, kg, 10/17/22 13:50:00 EDT, Weight Dosing Start Date: 10/17/22 Status: OrderedStart: 73-82-7945ewmooifaqsfm cypionate 100 mg/mL intramuscular solution 50 mg, IntraMuscular, q5day, # 10 mL, Refills(s) 3, Pharmacy: [id number], 172, cm, 10/16/21 14:53:00 EDT, Height/Length Dosing, 95, kg, 10/16/21 14:53:00 EDT, Weight Dosing Start Date: 01/22/22 Status: OrderedStart: 49-57-6534uylkuvhtjzrh cypionate 100 mg/mL intramuscular solution 50 mg, IntraMuscular, q7day, # 10 mL, Refills(s) 3, Pharmacy: [facility] #[id number], 172, cm, 10/16/21 14:53:00 EDT, Height/Length Dosing, 95, kg, 10/16/21 14:53:00 EDT, Weight Dosing Start Date: 10/16/21 Status: Ordered Start: 75-12-4080Nhvy-Testosterone 50 mg, IntraMuscular Start Date: 09/28/19 Status: Orderedtestosterone cypionate (Depo-Testosterone) 200 MG/ML injection testosterone cypionate 200 mg/mL intramuscular oil ActiveTestosterone Cypionate 50 MG/ML (3 sources)Testosterone Cypionate 50 MG/ML as directed Injection Activetimolol 2.5 mg/ml ophthalmic solution (20 sources)beta-Adrenergic BlockerStart: 07-95-4169numz 1 drop(s) into the eye(s) onceTimolol Maleate 0.25 % drops Active 1 DROPS OPHTHALMIC Once December 28, 2023 12:00am Complies with drug therapyStart: 35-33-3705fkcp 1 drop(s) into the eye(s) onceTimolol Maleate Active 1 DROPS OPHTHALMIC Once December 28, 2023 12:00amStart: 11-01-2023 End: 74-11-6426josb 0.5 drop(s) into the eye(s) once dailyTimolol 0.5 % drops Discontinued 1 DROPS EYE-BOTH Daily November 01, 2023 12:00am December 27 11:22amStart: 11-01-2023 End: 05-48-2216kabo 1 drop(s) into the eye(s) once dailyTimolol Discontinued 1 DROPS EYE-BOTH Daily November 01, 2023 12:00am December 28, 2023 11:22amStart: 77-94-1995dapa 1 drop(s) into the eye(s) once dailyTimolol Active 1 DROPS EYE- BOTH Daily November 01, 2023 12:00amStart: 38-10-2072Zfmgwie GFS 0.5% Gel drop(s), Daily, Refill(s) 0 Start Date: 10/10/20 Status: Ordered Repeat number:1 Start: 99-94-3020Evwkdcf GFS 0.5% Gel drop(s), Daily, Refill(s) 0 Start Date: 10/10/20 Status: OrderedStart: 87-10-1318Bcmxqeg GFS 0.5% Gel drop(s), Daily, Refill(s) 0 Start Date: 10/10/20 Status: Orderedtake 1 drop(s) into the eye(s) once dailytimolol (Timoptic) 0.5 % ophthalmic solution Administer 1 drop into both eyes Daily ActiveTimolol Maleate ActivetiZANidine 4 mg oral capsule (3 sources)Central alpha-2 Adrenergic AgonistStart: 98-72-7333mwBCTlebgw (Zanaflex) 4 MG capsule 0 Refill(s) 06/10/2024 Activezolpidem tartrate 12.5 mg extended release oral tablet (20 sources)gamma-Aminobutyric Acid-ergic AgonistStart: 26-06-7758Zexxwqcs Active MG PO November 01, 2023 12:00amStart: 52-03-6921Ankdrwle 12.5 mg tablet,ext release multiphase Active MG PO November 01, 2023 12:00am Complies with drug therapy Completed/Discontinued Medications MedicationDrug Class(es)DatesSig (Normalized)Sig (Original)amoxicillin 875 mg / clavulanate 125 mg oral tablet (6 sources)Penicillin-class AntibacterialStart: 12-28-2023 End: 81-30-8338gohb 1 tablet by mouth every twelve hoursAmoxicillin-Pot Clavulanate 875-125 mg tablet Discontinued 1 TAB PO Every 12 hours 18 01December 28, 2023 12:00am May 09, 2024 10:29amStart: 92-76-1069bbfb 1 tablet by mouth every twelve hoursAmoxicillin-Pot Clavulanate 875-125 MG 1 tablet Orally every 12 hrs for 10 day(s) Mar, Activebenzonatate 100 mg oral capsule (4 sources)Non-narcotic AntitussiveStart: 05-09-2024 End: 64-71-8359badf 1 capsule by mouth three times daily as needed for cough Benzonatate 100 mg capsule Discontinued 100 MG PO Three times daily as needed for cough May 09, 2024 1:00am December 24, 2024 2:08pm1 ml methylPREDNISolone acetate 40 mg/ml injection (17 sources)CorticosteroidStart: 03-09-2024 End: 65-39-8088twumlaPZOUASGbnvoh acetate (DEPO-Medrol) injection 40 mgStart: 03-09-2024 End: 10-76-948160 mg, Intra-articular, Once PRN Procedure, Starting on Sat03/09/24 at 1025, For 1 doseStart: 02-17-2024 End: 40-59-6797nhoxpwPJXIOOOlgrxi acetate (DEPO-Medrol) injection 40 mgStart: 02-17-2024 End: 29-33-767937 mg, Intra-articular, Once PRN Procedure, Starting on Sat02/17/24 at 1157, For 1 doseStart: 11-01-2023 End: 07-31-6380flgr 1 tablet by mouth onceMethylprednisolone (Medrol (Jean-Claude)) 4 mg tablets,dose pack Discontinued 0 PO per package directions November 01, 2023 12:00am December 28, 2023 11:19am PO PER PKG DIRStart: 38-10-3329Hnmqlk 4 MG as directed Orally for 6 days Dec, Not-Taking/PRNTimolol 0.5 % drops (1 source)Start: 11-01-2023 End: 31-33-2092amri 0.5 drop(s) into the eye(s) once dailyTimolol 0.5 % drops Discontinued 1 DROPS EYE-BOTH Daily October 31, 2023 11:00pm December 27 10:22amTriamcinolone (3 sources)CorticosteroidStart: 21-37-8488WWLZPEK - 10 mg Dec, 40 mg valsartan 40 mg oral tablet (20 sources)Angiotensin 2 Receptor BlockerStart: 12-28-2023 End: 62-89-9437wvzl 2 tablets by mouth once dailyValsartan 40 mg tablet Discontinued 80 MG PO Daily December 28, 2023 11:20am December 28, 2023 11:22amStart: 12-28-2023 End: 28-04-3077rcvy 80 mg by mouth once dailyValsartan Discontinued 80 MG PO Daily December 28, 2023 11:20am December 28, 2023 11:22amStart: 12-28-2023 End: 08-48-6828rxob 1 tablet by mouth once dailyValsartan 80 mg tablet Discontinued 80 MG PO Daily December 28, 2023 12:00am December 24, 2024 2:08pmStart: 11-01-2023 End: 92-35-5531tsqt 1 tablet by mouth once dailyValsartan 40 mg tablet Discontinued 40 MG PO Daily November 01, 2023 12:00am December 28, 2023 11: 22amStart: 10-10-2020 End: 21-61-3781fynh 1 tablet by mouth once dailyValsartan 80 mg tablet Active 80 MG PO Daily December 28, 2023 12:00am Complies with drug therapytake 1 tablet by mouth every twelve hoursValsartan 40 MG 1 tablet Orally Twice a day Active Problems Active Problems Problem ClassificationProblemDateDocumented DateEpisodic/ChronicAnxiety disorders (1 source)Anxiety disorder, unspecified; 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: [Anxiety disorder, unspecified]Onset: 65-53-5715EyjueviZdloowj kidney disease (3 sources)Chronic renal failure; 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: [Chronic kidney disease, unspecified]Onset: 823002-54-5839XtsigbfKwkpsvc obstructive pulmonary disease and bronchiectasis (5 sources)Bronchitis; 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: [Bronchitis, not specified as acute or chronic]45-43-9963OermyqrrOtupjftlofl and hemorrhagic disorders (1 source)Thrombocytopenia, unspecified; 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: [THROMBOCYTOPENIA UNSPECIFIED]Onset: 79-90-2583TqrkchpW Codes: Natural/environment (2 sources)Bitten or stung by nonvenomous insect and other nonvenomous arthropods, initial encounter; 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: [Insect bites]78-18-5798Fgemyxvb Esophageal disorders (5 sources)Laryngopharyngeal reflux; 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: [Gastro-esophageal reflux disease without esophagitis]Onset: 023778-00-8238DlqxxsgKccaxvqme hypertension (20 sources)Essential (primary) hypertension; 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: [Essential hypertension]Onset: 640397-79-6219VamiimzOjuumikwltzgm symptoms and ill- defined conditions (20 sources)Delay when starting to pass urine; 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: [Microscopic hematuria]Onset: 688557-88-4232NxsrecjbQthkomet (2 sources)Glaucoma; 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: [Unspecified glaucoma]Onset: 07-01-2024 79-95-2796OkyvypeLddvdyvunkv of prostate (20 sources)Benign prostatic hypertrophy with outflow obstruction; 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: [Benign prostatic hyperplasia with lower urinary tract symptoms]Onset: 87-61-2906EmutjmvSeclwetlghwku mental health disorders (2 sources)Chronic insomnia; 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: [Psychophysiologic insomnia] 59-24-0252VvrwrplZgifijtcqakyja (15 sources)Arthritis of left glenohumeral joint; 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: [Primary osteoarthritis, left shoulder]Onset: 538667-51-5810GiptjnrKfpab circulatory disease (1 source)Elevated blood-pressure reading, without diagnosis of hypertension EpisodicOther diseases of kidney and ureters (1 source)Urinary tract obstruction; 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: [Other obstructive and reflux uropathy]Onset: 67-36-1702MbshtfpmVvcxn endocrine disorders (5 sources)Testicular hypofunction; 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: [Testicular hypofunction] Onset: 06-20-6505IwxmlnwGdqap endocrine disorders (20 sources)Male hypogonadism; 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: [Testicular hypofunction]Onset: 947183-54-5392MrbteqfJfqxj endocrine disorders (6 sources)Testicular hypofunction; 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: [TESTICULAR HYPOFUNCTION] Onset: 53-02-2133MpwlubtQlsay hematologic conditions (1 source)Secondary polycythemia; 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: [Secondary polycythemia]Onset: 36-78-9677EcjxfeqmFoash lower respiratory disease (2 sources)Apnea; 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: [Apnea, not elsewhere classified]12-24-2024 EpisodicOther male genital disorders (5 sources)Txmpgydhx24-60-5913XkefszzRvgmn male genital disorders (16 sources)Male erectile dysfunction, unspecified; 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: [Impotence of organic origin]Onset: 204915-65-0557OqomjfwYpnsz non-traumatic joint disorders (8 sources)Disorder of shoulder; 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: [Other specified joint disorders, left shoulder]93-04-9119IlkddculJimoj non-traumatic joint disorders (4 sources)Pain in left shoulder; 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: [Pain in joint, shoulder region] 04-27-7378PxbowrnwLokyy nutritional; endocrine; and metabolic disorders (20 sources)Body mass index 30+ - obesity; 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: [Body mass index (BMI) 30.0-30.9, adult]Onset: 745582-53-0218HpatsbuOfbyq upper respiratory disease (18 sources)Seasonal allergic rhinitis; 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: [Other seasonal allergic rhinitis]Onset: 161193-50-0259JzcwzppIwkqo upper respiratory disease (3 sources)Seasonal allergy; 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: [Other seasonal allergic rhinitis] 20-96-8314ZucywlhPfmrs upper respiratory infections (3 sources)Sinusitis; 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: [Chronic sinusitis, unspecified]Onset: 734456-91-2224HcxrdudYnqqm upper respiratory infections (9 sources)Acute pharyngitis, unspecified; 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: [Acute pansinusitis, unspecified]EpisodicPoisoning by nonmedicinal substances (8 sources)Bee sting; 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: [Toxic effect of venom of bees, accidental (unintentional), initial encounter]97-09-4571TpidugfvSjxafasy codes; unclassified (5 sources)Sleep znubh87-34-6877IirrtntFeucdync codes; unclassified (6 sources)Obstructive sleep apnea syndrome; 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: [Obstructive sleep apnea (adult) (pediatric)]Onset: 446913-68-0708DqgxwmrRazcykwx codes; unclassified (1 source)Sleep apnea, unspecified; 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: [Sleep apnea, unspecified] Onset: 55-82-7226ZkqxejnOxvejynd codes; unclassified (1 source)Obstructive sleep apnea (adult) (pediatric); 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: [Obstructive sleep apnea (adult) (pediatric)]Onset: 39-70-4692IlmzxmrPmzcktrv codes; unclassified (7 sources)Insomnia; 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: [Insomnia, unspecified]Onset: 07-01-2024 55-52-3589LismwwvcHxjhcngj codes; unclassified (1 source)Insomnia, unspecified; 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: [Insomnia, unspecified]Onset: 06-76-9570CaykqkpxNkwyhdjzd-related disorders (2 sources)Hypnotic dependence; 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: [Sedative, hypnotic or anxiolytic dependence, uncomplicated]71-69-0539JdbyslaFctokim disorders (1 source)Hypothyroidism, unspecified; 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: [HYPOTHYROIDISM UNSPECIFIED]Onset: 08-45-4583IokfqjlSxchtxqsvpif (5 sources)Asymptomatic microscopic ikzwjjugf14-94-0945Zxkwmmqiftga (5 sources)Drug therapy oxfybpd71-87-8326 Past or Other Problems Problem ClassificationProblemDateDocumented DateEpisodic/Chronic Administrative/social admission (16 sources)First encounter by subject; 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: [Persons encountering health services in other specified circumstances]Onset: EpisodicOther aftercare (16 sources)Drug therapy finding; 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: [senior care (current) use of 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]Onset: 168328-95-8637JppxixanZojkx hematologic conditions (16 sources)Erythrocytosis; 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: [Secondary polycythemia]Onset: 625835-41-9010BbnncctpRydrk nervous system disorders (14 sources)Gordon's palsy; 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]Onset: 01-09-2024 92-28-9862JbiqyixjRxamt screening for suspected conditions (not mental disorders or infectious disease) (20 sources)Patient encounter status; 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: [Encounter for screening for lipoid disorders]Onset: 727078-01-7691EtlctlpoMkvrhqnshxxc (1 source)Contact with and (suspected) exposure to covid-19 Z20.822 Results Test NameValueInterpretationReference RangeFacilityOutside Recordson 02-08-2025 Outside [id number]#1.00OTGTIFFNormal [facility] HospitalAmbulatory Visit Summaryon 17-05-7336Hrbjxtgaff Visit Summary Ambulatory Visit Summary LAMONT GOVEA :1945 MRN: Visit Date:10/12/2024 Ambulatory Visit Instructions Your Diagnosis Male hypogonadism BPH with urinary obstruction Other obstructive and reflux uropathy Your Care Team Attending Physician - EWA RICHMOND PA-C Primary Care Physician - FREDERICK GONZALEZ [...] Schedule the Following Appointments Follow Up with EWA RICHMOND PA-C, URL When: In 1 year Where: [address] [facility] [place] [address] Medications What How Much When [...] Your health care prov (more content not included)...[facility] 62-79-4382GkghjahyeItbynxtye From: Lorri Metz To: EU - Administrative; Sent: 10/12/2024 13:45:33 EDT Show up: 06/30/2025 13:44:00 EDT Subject: Ambulatory Reminder Due Date/Time: 10/12/2025 13:43:00 EDT Reminder/Recall Patient was seeing Ewa Richmond. He is needing a 1 yr f/u w/ PSA which is due around 10/12/2025. Please get him scheduled.[facility] Office/Clinic Noteon 93-83-7142Phdpplm Office/Clinic NoteUrology Office/Clinic Note Chief Complaint 1 [...] E&M of Est. Patient Moderate 30-39 Min 36021 Hemoglobin and Hematocrit Hepatic Function Panel Lipid Panel PSA Screen, Total Testosterone Level Total Urnls Dip Stick Auto w/o Microscopy POC 73331 2. BPH with urinary obstruction (N40.1: Benign [...] E&M of Est. Patient Moderate 30-39 Min 91799 Other obstructive and reflux uropathy (N13.8: Other obstructive and reflux uropathy) Follow-up With When Contact Information MAXIMILIANO MAIER, EWA Zapien, URL In 1 year [address] [place] [address] Additional Instructions: Patient Education [...] Negative (10/12/24 1 (more content not included)... [place]ervilleComment on above:Result Comment: Electronically Signed By: EWA RICHMOND PA-Cbr\Date and Time Signed: 10/12/2512:49 EDTLab - Other Lab Resultson 97-29-4481Gkt - Other Lab Results [id number]#1.00OT[facility] Outside Recordson 62-71-5369Zjmgxgf Records [id number]#1.00OT[facility] Outside Recordson 51-03-3759Cspgjif Records [id number]#1.00OTOhioHealth Shelby HospitalNo Panel Informationon 84-21-2622VfqvbBrii Oconnro NP 03/09/2024 10:34 AM L Inj/Asp: L [...] and draped in the usual sterile fashion. [facility] Panel Informationon 09-55-9092ZibwyBrii Oconnor NP 02/17/2024 9:46 PM L Inj/Asp: [...] and draped in the usual sterile fashion. [facility] Shoulder - left 2 Viewson 60-13-9043Lvsmktz Result: Xrays AP, axillary and y-scapula of the left shoulder performed on February 17, 2024 demonstrates bone on bone glenohumeral joint. Narrowing of the ac joint in addition. No fractures noted. Humerus centered within the glenoid. There is abnormal glenoid morphology. Impression Advanced arthritis of the glenohumeral joint. Brii Oconnor [facility] HealthcareRadiology Study observation (narrative)[facility] Shoulder - left 2 ViewsOrdered By: Narciso Zarate on 02-17-2024 [facility] Work Phone: Ambulatory Visit Summaryon 82-46-6213Zrriqezkcy Visit SummaryAmbulatory Visit Summary LAMONT GOVEA :1945 Visit Date:09/27/2018 Ambulatory Visit Instructions Your [...] Every 5 days Male hypogonadism Pickup at [facility] Unchanged tadalafil (Cialis 5 mg oral tablet) 1 Tablets By Mouth Every day Unchanged timolol ophthalmic (Timolol GFS 0.5% Gel) Every day Unchanged valsartan (valsartan 80 mg Tab) By Mouth Every day Unchanged zolpidem (Ambien CR 12.5 mg Tab-ER) 1 Tablets By Mouth Once a day (at bedtime) as needed for for sleep Pharmacy Information [facility]: [address] [place] [id number] [phone] What When Comments Stop Taking aspirin Stop [...] you for choosing us for your care. [facility] Office/Clinic Noteon 03-62-2146Xeqhtht Office/Clinic NoteUrology Office/Clinic Note Chief Complaint 3yr [...] of sxs. Pt states he will call hisinsurance to see if this is covered. -F/u [...] Contact Information MAXIMILIANO MAIER, EWA Zapien, URL [address] [facility] [place] [address] [phone] Additional Instructions: 1 year w/ PSA, LFTs, Lipids, H&H, total T level Patient Education Hypogonadism, Male Documentation recorded by the scribcurry Mason accurately reflects the services(s) I performed anddecisions made by me. Authenticated by Ewa Richmond PA-C on 10/15/2023 13:46:14. I, Chhaya Mason, personally scribed for Ewa Richmond PA-C on [...] 10/15/2023 Family History Family (more content not included)...[place]ervilleComment on above:Result Comment: Electronically Signed By: EWA RICHMOND PA-C\.br\Date and Time Signed: 10/14/2412:49 EDT\.br\Electronically Co-Signed By: Chhaya Mason\.br\Date and Time Co-Signed: 10/15/23 13:43 EDTCOVID + FLU Quick Testingon 57-47-7818ZOGE-CoV-2 (COVID-19) RNA STEFF+probe Ql (Unsp spec)NegativeCheckd.In FluGen Other COVID + FLU Quick TestingNegativeRincon FluGen Other Quick Strepon 03-14-2023S. pyogenes Org specific cx Ql (Throat)NegativeLabcyte Other quick StrepPowerCloud Systems Other TESTOSTERONE, TOTALon 55-14-6398Dmlhecljxdse [Mass/Vol]749 ng/jEVuzfif677-480ErnDayton Children'S HospitalComment on above:Result Comment: Adult male reference interval is based on a population of healthy nonobese males (BMI <30) between 19 and 39 years old. Travison, et.al. JCEM 2017,102;1163-4769. PMID: [id number].Performed By: #### TESTTOT #### [facility] [address] [place] [address] Dr. Lazaro SamTESTOSTERONE, TOTALon 17-42-5944Fatdwxahicpe [Mass/Vol]740 ng/dL Jwvrfq752-953NtmDayton Children'S HospitalComment on above:Result Comment: Adult male reference interval is based on a population of healthy nonobese males (BMI <30) between 19 and 39 years old. Travjackson, et.al. JCEM 2017,102;6829-5660. PMID: 25004447.Performed By: #### TESTTOT #### [facility] [address] [place] [address] Dr. Lazaro Torres AUTO DIFFon 78-63-8768LDHN #0.0 103/ulNormal0.0-0.1The [facility] Butler HospitalComment on above:Performed By: #### CBC #### [facility] [address] [place] [address] Dr. Lazaro SamBasophils/100 WBC (Bld)0.4 %Normal0.2-2.0The [facility] Comment on above:Performed By: #### CBC #### [facility] [address] [place] [address] Dr. Willis ChangEShey #0.1 103/ulNormal0.0-0.7The [facility] HospitalComment on above: Performed By: #### CBC #### [facility] [address] [place] [address] Dr. Lazaro Brayosinophils/100 WBC (Bld)0.6 %Critically low0.9-7.0The [facility] HospitalComment on above:Performed By: #### CBC #### [facility] [address] [place] [address] Dr. Lazaro Brayrythrocyte distribution width (RBC) [Ratio]13.7 %Dwbjwo73.0-15.0 The [facility] HospitalComment on above:Performed By: #### CBC #### [facility] [address] [place] [address] Dr. Lazaro SamHematocrit (Bld) [Volume fraction]52.4 %Rntaob18.0-54.0The [facility] HospitalComment on above:Performed By: #### CBC #### [facility] [address] [place] [address] Dr. Lazaro SamHemoglobin (Bld) [Mass/Vol]17.3 g/xMJihnrk53.0-18.0The [facility] HospitalComment on above:Performed By: #### CBC #### [facility] [address] [address] [address] Lazaro Suarez #0.03 10e3/ulNormal0.00-0.03The [facility] HospitalComment on above:Performed By: #### CBC #### [facility] [address] [place] [address] Dr. Lazaro Suarez %0.4 %Normal0.0-0.5The [facility] HospitalComment on above: Performed By: #### CBC #### [facility] [address] [place] [address] Dr. Lazaro FunesDeng #1.5 103/ulNormal1.2-3.8The [facility] HospitalComment on above:Performed By: #### CBC #### [facility] [address] [place] [address] Dr. Lazaro Funeshocytes/100 WBC (Bld)18.7 %Critically low20.5-60.0The [facility] HospitalComkarmanos cancer center on above:Performed By: #### CBC #### [facility] [address] [place] [address] Dr. Lazaro VarnerUAL DIFF REQNONormalThe [facility] HospitalComment on above: Performed By: #### CBC #### [facility] [address] [place] [address] Dr. Lazaro Coyne (RBC) [Entitic mass]29.7 tqLckhfy01.9-34.0The [facility] HospitalComment on above:Performed By: #### CBC #### [facility] [address] [place] [address] Dr. Lazaro Coyne (RBC) [Mass/Vol]33.0 g/yMLamood08.9-35.2The [facility] HospitalComment on above:Performed By: #### CBC #### [facility] [address] [place] [address] Dr. Lazaro Coyne (RBC) [Entitic vol]90.0 iIPthtkq74.0-94.0The [facility] HospitalComment on above:Performed By: #### CBC #### [facility] [address] [address] [address] Lazaro Britton #0.6 103/ulNormal0.3-0.8The [facility] HospitalComment on above:Performed By: #### CBC #### [facility] [address] [address] [address] Lazaro Diasocytes/100 WBC (Bld)7.7 %Normal1.7-12.0The [facility] Comment on above:Performed By: #### CBC #### [facility] [address] [place] [address] Dr. Lazaro Tubbs #5.8 103/ulNormal1.4-6.5The [facility] HospitalComment on above:Performed By: #### CBC #### [facility] [address] [place] [address] Dr. Lazaro Porrasutrophils/100 WBC (Bld)72.2 %Sfyhxj48.0-75.0The [facility] HospitalComment on above:Performed By: #### CBC #### [facility] [address] [place] [address] Dr. Lazaro Rossi mean volume (Bld) [Entitic vol]9.1 fLCritically low 9.5-13.5The [facility] HospitalComment on above:Performed By: #### CBC #### [facility] [address] [place] [address] Dr. Lazaro SmaPLT162 103/peYogouc443-447Otu [facility] HospitalComment on above: Performed By: #### CBC #### [facility] [address] [place] [address] Dr. Lazaro SamRBC5.82 106/ulNormal4.70-6.10The [facility] HospitalComment on above:Performed By: #### CBC #### [facility] [address] [place] [address] Dr. Lazaro SamWBC8.1 103/ulNormal4.0-11.0The [facility] HospitalComment on above: Performed By: #### CBC #### [facility] [address] [address] [address] Lazaro Taylor 14(COMP METB)on 51-10-9586Umljydr [Mass/Vol]3.7 g/dLNormal 3.4-5.0The [facility] HospitalComment on above:Performed By: #### CMP, TSH #### [facility] [address] [address] [address] Lazaro SamAlbumin/Globulin [Mass ratio]0.9 {ratio}NormalThe [facility] HospitalComment on above:Performed By: #### CMP, TSH #### [facility] [address] [address] [address] Lazaro Briseno [Catalytic activity/Vol]72 U/PGyeeuo28-528Arc [facility] HospitalComment on above:Performed By: #### CMP, TSH #### [facility] [address] [place] [address] Dr. Lazaro Nicole [Catalytic activity/Vol]42 U/ZJnjumc33-07Qaf [facility] HospitalComment on above:Performed By: #### CMP, TSH #### [facility] [address] [address] [address] Lazaro Barth gap [Moles/Vol]13.4 mmol/LNormalThe [facility] Comment on above:Performed By: #### CMP, TSH #### [facility] [address] [address] [address] Lazaro SamAST [Catalytic activity/Vol]22 U/PVzjuoi15-77Cbe [facility] HospitalComment on above:Performed By: #### CMP, TSH #### [facility] [address] [address] [address] Lazaro SamBilirubin [Mass/Vol]0.6 mg/dLNormal0.2-1.0The [facility] Comment on above:Performed By: #### CMP, TSH #### [facility] [address] [address] [address] Lazaro SamCalcium [Mass/Vol]8.8 mg/dLNormal8.5-10.1The [facility] Comment on above:Performed By: #### CMP, TSH #### [facility] [address] [address] [address] Lazaro SamChloride [Moles/Vol]104 mmol/QGmlmri94-198Jxc [facility] Comment on above:Performed By: #### CMP, TSH #### [facility] [address] [address] [address] Lazaro SamCO2 [Moles/Vol]26.5 mmol/UHrespj52.0-32.0The [facility] Comment on above:Performed By: #### CMP, TSH #### [facility] [address] [address] [address] Lazaro SamCreatinine [Mass/Vol]1.30 mg/dLNormal0.70-1.30The [facility] HospitalComment on above:Performed By: #### CMP, TSH #### [facility] [address] [address] [address] Lazaro BrayGFR-AF PUERTO RICAN>60Normal>=60The [facility] HospitalComment on above:Performed By: #### CMP, TSH #### [facility] [address] [address] [address] Lazrao BrayGFR-NON AF VHJISABS32 mL/min/1.70s8Trywibwfkd low>=60The [facility] HospitalComment on above:Performed By: #### CMP, TSH #### [facility] [address] [address] [address] Lazaro SamGlobulin (S) [Mass/Vol]3.9 g/dLNormalThe [facility] HospitalComment on above:Performed By: #### CMP, TSH #### [facility] [address] [address] [address] Lazaro SamGlucose [Mass/Vol]117 mg/dLCritically ndun55-550Bze [facility] HospitalComment on above:Performed By: #### CMP, TSH #### [facility] [address] [address] [address] Lazaro SamPotassium [Moles/Vol]3.9 mmol/LNormal3.5-5.1The [facility] Comment on above:Performed By: #### CMP, TSH #### [facility] [address] [place] [address] Dr. Lazaro SamProtein [Mass/Vol]7.6 g/dLNormal6.4-8.2[facility] Comment on above:Performed By: #### CMP, TSH #### [facility] [address] [place] [address] Dr. Lazaro SamSodium [Moles/Vol]140 mmol/UByogcc865-671DoyDayton Children'S Hospital Comment on above:Performed By: #### CMP, TSH #### [facility] [address] [place] [address] Dr. Lazaro Trejo nitrogen [Mass/Vol]23.0 mg/dLCritically high7.0-18.0[facility]'S HospitalComment on above:Performed By: #### CMP, TSH #### [facility] [address] [place] [address] Dr. Lazaro Trejo nitrogen/Creatinine [Mass ratio]17.7 mg/mgNoFirelands Regional Medical CenterComment on above:Performed By: #### CMP, TSH #### [facility] [address] [place] [address] Dr. Lazaro Carr 91-81-6513P0 [Mass/Vol]7.70 ug/dLNormal4.50-12.10The [facility] HospitalComment on above:Performed By: #### T4 #### [facility] [address] [place] [address] Dr. Lazaro Hernadez 75-51-4194LIQ9.079 uIU/mLNormal0.358-3.740Day[facility] Children'S HospitalComment on above:Performed By: #### CMP, TSH #### [facility] [address] [place] [address] Dr. Lazaro Vu [facility] BELOWMercy Health Defiance HospitalComment on above: Result Comment: <0.34 UIU/ml HYPERTHYROID 0.34-5.60 UIU/ml EUTHYROID >5.60 UIU/ml HYPOTHYROIDPerformed By: #### CMP, TSH #### [facility] [address] [address] [address] Lazaro SamTESTOSTERONE, FREE,DIRECT, TOTALon 33-73-0647Wxby Testosterone(Direct)9.4 pg/mLNormal6.6-18.1The [facility] Medical Centerment on above:Result Comment: Performed at: BNPerformed By: #### TESTFRD #### [facility] [address] [place] [address] Dr. Lazaro SamTestosterone [Mass/Vol]328 ng/oKEirzei378-881Ilu [facility] HospitalComment on above:Result Comment: Adult male reference interval is based on a population of healthy nonobese males (BMI <30) between 19 and 39 years old. martha Roman.al. JCEM 2017,102;1497-4465. PMID: [id number]. Performed at: CBPerformed By: #### TESTFRD #### [facility] [address] [place] [address] Dr. Lazaro SamCNOVSPon 94-00-3892HUOJYFTgzfg (SP) Office (HEMACL) LAMONT GOVEA ([id number]) 1945 M Date Time Provider Department 06/19/18 2:30 PM NARCISO MARINELLI During your visit today, we recorded the following information about you: Temperature Pulse Respiration Blood pressure 98 degrees 74/minute 18/minute 186/97 Weight Height 93.6 kg 1.727 m Narciso Marinelli MD 06/19/2018 2:18 PM Signed HPI Lamont Carla Govea is a 72 year old male [...] CBC + DIFF (FOR REMOTE [facility] USE) Narciso Marinelli MD Referring Provider: RUPERTO BLAS [[id number]] Allergies As of Date: 06/19/2018 (No Known Allergies) Date Reviewed: 06/19/2018 Reviewed by: Melvi Valle - Fully Assessed Reason for Visit: polycythemia [Other] Cmt: follow up Primary Visit Diagnosis:Erythrocytosis [D75.1] Order(s):CBC + DIFF (FOR REMOTE [facility] USE) [SQRCBCDF] Order #: [id number] STANDING Disposition: Return in about 1 year [...] Encounter Status:Closed by NARCISO MARINELLI MD on 06/19/18[place] [facility] Hospitalon 15-49-4297Zyacumv mass concHNO ID: [id number] Author: Narciso Marinelli Service: ? Author Type: Physician Type: Progress Notes Filed: 06/19/2018 2:18 PM Note Text: BARB Govea is a [...] CBC + DIFF (FOR REMOTE [facility] USE) Narciso Marinelli MDNormalCBarney Children's Medical CenterRemote CBCDIF (for [facility] use only)on 36-18-0531Jzc Baso<0.54Lucvrf7.00-0.10St. [facility]S Medical CenterAbs [place] 1.02 k/uLHigh0.00-0.86St. [facility]S Medical CenterAbs Neut5.04 k/uLNormal1.45-7.50 [facility] Medical CenterBasophils/100 WBC (Bld)0.2 %NormalSt. Mary'S Medical CenterEosinophils #/vol (Bld)0.40 10*3/uLNormal0.00-0.45St. [facility]'S Medical CenterEosinophils/100 WBC (Bld)4.5 %NormalSt. Mary'S Medical Center Erythrocyte distribution width Ratio (RBC)13.3 %Rlprza12.5-15.0St. [facility]'S Medical CenterHematocrit Volume Fraction (Bld)48.8 %Kmveez58.0-51.0St. [facility]S Medical CenterHemoglobin mass conc (Bld)16.8 g/iQFohmxz16.0-17.0St. [facility]'S Medical CenterLymphocytes #/vol (Bld)2.43 10*3/uLNormal1.00-4.00St. [facility]'S Medical CenterLymphocytes/100 WBC (Bld)27.3 %NormalOhioHealth Grant Medical CenterH Entitic mass (RBC)30.5 vKEhqtrx00.0-34.0[facility] Medical CenterHC mass conc (RBC)34.4 g/aFFdaybc71.5-36.0[facility] Medical CenterV Entitic volume (RBC) 88.6 lHSkfrow55.0-100.0St[facility] Medical CenterMonocytes/100 WBC (Bld)11.4 % NormalSt. Mary'S Medical CenterNeutrophils/100 WBC (Bld)56.6 %NormalSt. Mary'S Medical CenterPlatelet mean volume Entitic volume (Bld)9.6 fLNormal9.0-12.7 St[facility]S Medical CenterPlatelets #/vol (Bld)152 10*3/rJKecois252-879Sshjxdgtp Clinic Clethe surgical hospital at southwoodsRBC #/vol (Bld)5.51 10*6/uLNormal4.20-6.00St. Mary'S Medical CenterWBC #/vol (Bld)8.91 10*3/uLNormal3.70-11.00[facility] BCR-ABL Qualitativeon 20-61-6267YPZ-ABL Qualitative(NOTE)[facility] on above:Result Comment: Please refer to [facility] Surgical Pathology report, By: #### CALR, BCRQL #### [facility] [employer] [address] [place], [place] [address] CALR Exon 9 Mutationon [id number] Result/InterpDuplicate request NormalBlanchard Valley Health System on above:Result Comment: Account Credited SEE MPNP. DMCKNIGHT 05 30 2018Performed By: #### CALR, BCRQL #### [facility] [address] [id number] MEUU Reviewed byDuplicate requestOhioHealth Nelsonville Health Center Comment on above:Result Comment: Account Credited SEE MPNP. DMCKNIGHT 05 30 2018Performed By: #### CALR, BCRQL #### [facility] [address] [address] KJTN Specimen TypeDuplicate requestNoMemorial Health System [facility] Comment on above:Result Comment: Account Credited SEE MPNP. DMCKNIGHT 3 2018Performed By: #### CALR, BCRQL #### [facility] [address] [address] CRVXim 51-69-1365MSHXLyqssa Text Dear Lamont Govea: How to activate your [facility] [employer] Account 1. Visit the [employer] Signup page at [email or web address] 2. Identify yourself using your one-time use activation code: [email or web address] 3. Follow the on-screen prompts to choose [...] information on the Identify Yourself Form at [email or web address] , click Next. Create your login and password, choose a [employer] ID and password that will be easy for you to use, but impossible for anyone else to guess. Pick a security question that will assist you in the event you forget your password the next time you log-on. If you have difficulty activating your account, please call our [employer] helpline at [phone] or toll free at . We hope you enjoy using [employer]! Kindest Regards, [facility] [employer] TeamNoMemorial Health System Marietta Memorial HospitalCNOVSPon 05-29-2018 CNOVSPVisit (SP) Office (HEMACL) LAMONT GOVEA ([id number]) 1945 M Date Time Provider Department 05/29/18 11:15 AM NARCISO MARINELLI HEMACL During your visit today, we recorded the following information about you: Temperature Pulse Respiration Blood pressure 97.8 degrees 69/minute 16/minute 192/89 Weight Height 91.8 kg 1.727 m Narciso Marinelli MD 05/29/2018 12:28 PM Signed HPI Lamont Govea is a 72 year old [...] viscosity is hematocrit with the risk of IL, CVA, Budd Chiari, etc all increased proportionately [...] CT + CBC (FOR REMOTE [facility] USE) - ERYTHROPOIETIN/EPO - HEPATIC FUNCTION PNL [...] Narciso Marinelli MD Referring Provider: MURALI CHAVEZ [[id number]] Allergies As of Date: 05/29/2018 (No Known Allergies) Date Reviewed: 05/29/2018 Reviewed by: Melvi Valle - Fully Assessed Reason for Visit: high HGB [Other] Cmt: new patient consultation ref. Dr. Chavez Primary Visit Diagnosis:Polycythemia [D75.1] Other Visit Diagnosis:Erythrocytosis [D75.1] Order(s):JAK2 V617F MUTATION BLOOD [SQJAK2] Order #: [id number] FUTURE BCR-ABL QUALITATIVE MULTIPLEX RT-PCR [SQBCRQL] Order #: [id number] FUTURE CALR EXON 9 MUTATION ANALYSIS BLOOD [SQCALR] Order #: [id number] FUTURE MPL MUTATION ANALYSIS BLOOD [SQMPL] Order #: [id number] FUTURE ABS GRAN CT + CBC (FOR REMOTE [facility] USE) [SQRAGCBC] Order #: [id number] FUTURE ERYTHROPOIETIN/EPO [SQEPO] Order #: [id number] FUTURE HEPATIC FUNCTION PNL [SQHFP] Order #: [id number] FUTURE TESTOSTERONE TOTAL [SQTESTO] Order #: [id number] FUTURE Disposition: Return in about 3 weeks [...] Encounter Status:Closed by NARCISO MARINELLI MD on 05/29/18NormalCBarney Children's Medical CenterEPOon 04-17-8249RFG0.8 mIU/mLNormal2.6-18.5CBarney Children's Medical Center Comment on above:Result Comment: Test analyzed by the [employer] DxI method. Performed By: #### JAK2, EPO, HFP #### [facility] [employer] [address] [address] Ugxqsbj Functn Panelon 55-21-5026Mbuwvrr mass conc4.6 g/dLNormal 3.9-4.9CBarney Children's Medical CenterComment on above:Performed By: #### JAK2, EPO, HFP #### [facility] [employer] [address] [address] NJE enzyme act/vol60 U/AVhtego12-033FdpiohvocSt. Mary'S Medical Center Comment on above:Performed By: #### JAK2, EPO, HFP #### [facility] [employer] [address] [address] EZA enzyme act/vol36 U/LAtpkxw06-61YifncnyppBlanchard Valley Health System on above:Performed By: #### JAK2, EPO, HFP #### [facility] [employer] [address] [id number] EHP enzyme act/vol29 U/NIxjstr84-69WqejnhnruBlanchard Valley Health System on above:Performed By: #### JAK2, EPO, HFP #### [facility] [employer] [address] [address] Iucrdnvvy mass conc0.5 mg/dLNormal0.2-1.3CBarney Children's Medical Center Comment on above:Performed By: #### JAK2, EPO, HFP #### [facility] [employer] [address] [address] Ftsbewkra,Conjugated<0.2Normal<0.2CThe Surgical Hospital [facility] Southwoods on above:Performed By: #### JAK2, EPO, HFP #### [address] [address] Vbgagop mass conc7.6 g/dLNormal6.3-8.0[facility] Comment on above:Performed By: #### JAK2, EPO, HFP #### [address] [address] IXK1 V617F Mutationon 19-88-5433JZS6 V617F InterpDuplicate request NormalBlanchard Valley Health System on above:Result Comment: Account Credited SEE MPNP. CK 2019Performed By: #### JAK2, EPO, HFP #### [address] [address] MSS3 V617F Spec TypeDuplicate requestNoWyandot Memorial Hospital on above:Result Comment: Account Credited SEE MPNP. DMCK 2019Performed By: #### JAK2, EPO, HFP #### [address] [address] Phnhqksxg Path RevDuplicate requestNoMemorial Health System [facility] Comment on above:Result Comment: Account Credited SEE MPNP. CK 2019Performed By: #### JAK2, EPO, HFP #### [address] [address] ECH Mutationon [id number] Mutation InterpDuplicate requestNormal [facility] on above:Result Comment: Account Credited SEE MPNP. CK 2019Performed By: #### MPL #### [address] [address] Jbmduaxkcyt Neopl Pnl Bloodon 57-06-3206Oxtjg Neopl Pnl Bld(NOTE) [facility] on above:Result Comment: Please refer to [facility] Surgical Pathology report, .Performed By: #### MPNP ####[facility] [address] [place], [place] [id number] 87-82-3317Biyyaiz mass concHNO ID: [id number] Author: Narciso Marinelli Service: (none) Author Type: Physician Type: Progress Notes Filed: 05/29/2018 12:28 PM Note Text: BARB Lamont Govea is [...] viscosity is hematocrit with the risk of IL, CVA, Budd Chiari, etc all increased proportionately [...] HEPATIC FUNCTION PNL - TESTOSTERONE TOTAL Narciso E Fanning, MDNormalCBarney Children's Medical CenterRemote Abs Gran + CBC (for [facility] use only)on 93-82-0436Yqdum Gran Count3.85 k/uLNormal1.45-7.50St. Mary'S Medical CenterErythrocyte distribution width Ratio (RBC)13.6 %Bjsamr19.5-15.0 [facility]'S Medical CenterHematocrit Volume Fraction (Bld)49.6 %Ijpufy64.0-51.0 [facility]'S Medical CenterHemoglobin mass conc (Bld)17.1 g/bABdrr75.0-17.0 [facility] CenterH Entitic mass (RBC)30.5 uJFmahiz50.0-34.0[facility] Medical CenterHC mass conc (RBC)34.5 g/zDHwuwyx16.5-36.0[facility] Medical CenterV Entitic volume (RBC)88.6 pDDjctcj23.0-100.0St[facility]'S Medical CenterPlatelet mean volume Entitic volume (Bld)9.9 fLNormal9.0-12.7CBarney Children's Medical CenterPlatelets #/vol (Bld)146 10*3/pNShh544-731VvzykpzhmSt. Mary'S Medical CenterRBC #/vol (Bld)5.60 10*6/uLNormal4.20-6.00[facility] CenterWBC #/vol (Bld)6.86 10*3/uLNormal3.70-11.00[facility] CenterSURGICAL PATHOLOGYon [id number] PATHOLOGYPROCEDURE REPORT Specimen originated from [facility] Specimen #: [id number] Submitting Physician: NARCISO MARINELLI MD SPECIMEN SUBMITTED [...] this sample, and cDNA prepared by reverse marriage and family social worker. Multiplex RT-PCR studies were performed using fluorescently [...] developed and its performance characteristics determined by [facility]'s [facility] Pathology and Laboratory Medicine [place] ([facility]). It has not been cleared or approved by the FDA. -PLIL is regulated under CLIA as qualified to perform high-complexity testing. This test is used for clinical purposes. It should not be regarded as investigational or for research. As Reviewed by: Narciso Luong M.D., Ph. D. [facility]/brynn 06/10/2018 Procedure Pathologist: Narciso Luong M.D. Electronic [...] sequencing was performed on the Illumina instrument ([place], [place]). A customized bioinformatic pipeline was used to align the sequencing reads to the reference human genome (GRCh37/hg19). Benign common polymorphisms are not reported. Limitations: Sequence changes outside the analyzed regions, including intronic, noncoding, and splice-site variants, will not be identified by this test. The lower limit of detection of this assay is approximately 1% allele proportion for the JAK2 Rrv437Pnl single nucleotide variant and approximately 5% allele [...] developed and its performance characteristics determined by [facility]'s [facility] Pathology and Laboratory Medicine [place] ([facility]). It has not been cleared or approved by the FDA. [facility] is regulated under CLIA as qualified to perform high-complexity testing. This test is used for clinical purposes. It should not be regarded as investigational or for research. As Reviewed by: Quin Hill M.D. Ph.D. HENRIK/ap [id number] References: Temi DA, Syd A, Davidertawny R, Payal J, Borowitz MJ, Johanna Rashid [...] Receipt: 05/30/2018 Submitted: NARCISO MARINELLI MD Location: [facility] Diagnostic interpretation performed at [facility], [address] [place] [address].NormalSt. Mary'S Medical CenterTestosteroneon 05-29-2018 Testosterone mass xaxz590 ng/iXQmfhno598-584UglfzpgwxThe [facility] on above:Result Comment: A testosterone level in the 193-320 ng/dL range with associated clinical symptoms is considered low and may indicate hypogonadism (from NEJ 2010 363:123-135). Results >320 ng/dL are considered normal.Performed By: #### TESTO ####[facility] [address] [place], [place] [id number] Vital Signs Date TimeVital SignValuePerforming GufrfptvwLmqdaiai10-26-4079 14:11-0400Body .72 [facility]alsams[facility] DO Work Phone: [phone])[address] [place], [place] 1544809-25-2025 14:11-0400 Body mass index (BMI) [Ratio]29.6 kg/n9Noaojjt House DO Work Phone: [phone])[address] [place], [place] 1544809-25-2025 14:11-0400 Body .45 kgUofl Health - Peace Hospitalsamson House DO Work Phone: 1(867)[address] [place], [place] 1544809-25-2025 14:11-0400 Diastolic blood tvsnbgne56 mm[Hg]Frederick House DO Work Phone: 1(298)[address] [place], [place] 1544809-25-2025 14:11-0400 Heart rate78 /minSheilarsamson House DO Work Phone: [phone])[address] [place], [place] 1544809-25-2025 14:11-0400 SaO2% (BldA) [Mass fraction]96 %Frederick House DO Work Phone: 1(632)[address] [place], [place] 1544809-25-2025 14:11-0400 Systolic blood atezhgnv659 mm[Hg]Frederick House DO Work Phone: 1(734)[address] [place], [place] 1544807-10-2025 11:36-0400 Body peeuzk890.72 [facility] Cityjaime House DO Work Phone: [phone])[address] [place], [place] 1544807-10-2025 11:36-0400 Body mass index (BMI) [Ratio]29.5 kg/p3Rvouhao House DO Work Phone: 1(505)[address] [place], [place] 1544807-10-2025 11:36-0400 Body bdfooztkopr58.2 [degF]Frederick House DO Work Phone: 1(724)[address] [place], [place] 1544807-10-2025 11:36-0400 Body djmwpu29.16 kgCharsamson House DO Work Phone: 1(624)[address] [place], [place] 1544807-10-2025 11:36-0400 Diastolic blood mm[Hg]Frederick House DO Work Phone: 1(117)[address] [place], [place] 1544807-10-2025 11:36-0400 Heart rate75 /minCharles House DO Work Phone: 1(345)[address] [place], [place] 1544807-10-2025 11:36-0400 Respiratory rate18 /minCharsamson House DO Work Phone: 1(797)[address] [place], [place] 1544807-10-2025 11:36-0400 SaO2% (BldA) [Mass fraction]97 %Frederick House DO Work Phone: 1(293)[address] [place], [place] 1544807-10-2025 11:36-0400 Systolic blood awboabey628 mm[Hg]Frederick Washington DO Work Phone: 1(327)[address] [place], [place] 1544804-02-2025 10:45-0400 Body mgzbiq026.6 cmEda Junior MD Work Phone: [facility] HospitalKitmmovdqw73-33-8840 10:45-0400Body mass index (BMI) [Ratio]32.28 kg/e0AyiwdvEda Junior MD Work Phone: [facility] HospitalIdzjgqbysh92-54-8055 10:45-0400Body .72 kgEda Junior MD Work Phone: [facility] HospitalLfytpunqrh55-83-6623 10:45-0400Diastolic blood mcyncull37 mm[Hg]Eda Junior MD Work Phone: [facility] HospitalErauysdgtx30-09-7433 10:45-0400Heart rate68 /min Eda Junior MD Work Phone: [facility] HospitalPgriuxnnmr89-56-2649 10:45-0400Systolic blood oozdcprz925 mm[Hg]Eda Junior MD Work Phone: [facility] HospitalBhfojcruvq77-71-7731 09:280500Body pzjmsu066.72 [facility]02-08-2025 09:28-0500Body mass index (BMI) [Ratio]30.6 kg/l7JfmbdyhieTogus Va Medical Center02-08-2025 09:28-0500Body xjvomoeeljt74.4 [degF][facility]02-08-2025 09:28-0500Body vlizvq18.34 kgTogus Va Medical Center02-08-2025 09:28-0500Diastolic blood aftxyhvl95 mm[Hg][facility]02-08-2025 09:28-0500 Heart gjlz720 /[facility]02-08-2025 09:28-0500 Respiratory rate18 /[facility]02-08-2025 09:28-0500 SaO2% (BldA) [Mass fraction]94 %[facility]02-08-2025 09:28-0500Systolic blood qsbbuenw693 mm[Hg][facility] 01-09-2024 13:47-0400Body wxatkh170.7 cmJosh Hearn ORTHOPEDICS PEDIATRIC PHYSICIAN Work Phone: [facility] HospitalMjbougsmom54-68-1117 13:47-0400Body mass index (BMI) [Ratio]31.17 kg/z1Vzzxmgau Hearn ORTHOPEDICS PEDIATRIC PHYSICIAN Work Phone: [facility] HospitalPwbbugsyml14-25-2234 13:47-0400Body temperature 96.21 [degF]Josh Hearn ORTHOPEDICS PEDIATRIC PHYSICIAN Work Phone: [facility] HospitalQiunpgoxix11-73-4234 13:47-0400Body torvhf08.99 kgBrittjose Hearn ORTHOPEDICS PEDIATRIC PHYSICIAN Work Phone: [facility] HospitalMmigputtxv46-77-0710 13:47-0400Diastolic blood mm[Hg]Josh Hearn ORTHOPEDICS PEDIATRIC PHYSICIAN Work Phone: [facility] HospitalFchfwdufih66-43-8776 13:47-0400Heart rate83 /min Josh Ontiverosk ORTHOPEDICS PEDIATRIC PHYSICIAN Work Phone: [facility] HospitalVugxxgmlye81-42-8815 13:47-0400Respiratory rate16 /minJosh Hearn ORTHOPEDICS PEDIATRIC PHYSICIAN Work Phone: [facility] HospitalBqfbmphdrh75-48-6549 13:47-3951TbC4% (BldA) [Mass fraction]98 %Josh Ontiverosk ORTHOPEDICS PEDIATRIC PHYSICIAN Work Phone: [facility] HospitalXsllevlxnv65-91-4485 13:47-0400Systolic blood lmhesozh854 mm[Hg]Josh Ontiverosk ORTHOPEDICS PEDIATRIC PHYSICIAN Work Phone: [facility] HospitalFhvhgiffkv42-59-1243 11:16-0400Body zvaymk035.72 cmTogus [facility] Center09-28-2024 11:16-0400Body mass index (BMI) [Ratio]30.1 kg/p5JwvwblgwuTogus Va Medical Center09-28-2024 11:16-0400Body ruhvemeojjo76 [degF][facility]09-28-2024 11:16-0400Body .92 kgTogus Va Medical Center09-28-2024 11:16-0400Diastolic blood mm[Hg][facility]09-28-2024 11:16-0400 Heart qxrx766 /[facility]09-28-2024 11:16-0400 Respiratory rate18 /[facility]09-28-2024 11:16-0400 SaO2% (BldA) [Mass fraction]95 %[facility]09-28-2024 11:16-0400Systolic blood gruhkptl740 mm[Hg][facility] 12-12-2023 14:42-0400Body wftwpo995.7 cmJosh Hearn ORTHOPEDICS PEDIATRIC PHYSICIAN Work Phone: [facility] HospitalJzoeulnutq82-21-7963 14:42-0400Body mass index (BMI) [Ratio]30.11 kg/i6JljexsyzJosh Ontiverosk ORTHOPEDICS PEDIATRIC PHYSICIAN Work Phone: [place] [address]Swsvahyiep44-65-9607 14:42-0400Body temperature 97.59 [degF]Josh Ramirezzpatrick ORTHOPEDICS PEDIATRIC PHYSICIAN Work Phone: [facility] HospitalRpadftisra55-39-8397 14:42-0400Body .81 kgJosh Campbellpatrick ORTHOPEDICS PEDIATRIC PHYSICIAN Work Phone: [facility] HospitalKowkpcgstz96-21-1552 14:42-0400Diastolic blood mm[Hg]Josh Hearn ORTHOPEDICS PEDIATRIC PHYSICIAN Work Phone: [facility] HospitalHrhukvenex97-76-9771 14:42-0400Heart gqyk011 /min Josh Hearn ORTHOPEDICS PEDIATRIC PHYSICIAN Work Phone: [facility] HospitalComment on above:94% K403-69-9015 14:42-0400Systolic blood vzlyukli783 mm[Hg]Josh Hearn ORTHOPEDICS PEDIATRIC PHYSICIAN Work Phone: [facility] HospitalTnplxvgxro86-87-1864 14:44-0400Body .72 cmT[facility] Center08-02-2024 14:44-0400Body mass index (BMI) [Ratio]30.4 kg/n2CzelpqclnTogus Va Medical Center08-02-2024 14:44-0400Body bgnumscnhog02.1 [degF][facility]08-02-2024 14:44-0400Body uicuqt25.94 kgTogus Va Medical Center08-02-2024 14:44-0400Diastolic blood xezsnjox73 mm[Hg][facility]08-02-2024 14:44-0400 Heart rate80 /[facility]08-02-2024 14:44-0400 Respiratory rate18 /[facility]08-02-2024 14:44-0400 SaO2% (BldA) [Mass fraction]95 %[facility]08-02-2024 14:44-0400Systolic blood uafglarw741 mm[Hg][facility] 10-15-2023 12:58-0400Blood Pressure LocationJENNVALLEYWISE [facility] MAXIMILIANO [facility]07-16-2024 12:58-0400Diastolic blood xoufccfo79 mm[Hg]EWA RICHMOND [facility]07-16-2024 12:58-0400Heart rate81 /minJENNIFER MAXIMILIANO [facility]07-16-2024 12:58-0400Respiratory rate16 /minJENNIFER MAXIMILIANO [facility]07-16-2024 12:58-0400Systolic blood lshevtln498 mm[Hg]EWA RICHMOND [facility]12-19-2023 12:05-0500Body .72 cmAvarun Isbell Other [facility] [employer] Other 12-19-2023 12:05-0500Body mass index (BMI) [Ratio] 30.62 kg/m2Myrna Isbell Other [employer] Other 12-19-2023 12:05-0500Body edhylbofaco59.9 [degF]Myrna Isbell Other [employer] Other 12-19-2023 12:05-0500Body .36 kgMyrna Isbell Other [employer] Other 12-19-2023 12:05-0500Diastolic blood fuwbbxfd361 mm[Hg]Myrna Isbell Other [employer] Other 12-19-2023 12:05-0500Respiratory rate18 /Alonso Isbell Other [employer] Other 12-19-2023 12:05-0347SvU0% (BldA) [Mass fraction]96 % Myrna Isblel Other [employer] Other 12-19-2023 12:05-0500Systolic blood ynpzitwn487 mm[Hg] Myrna Isbell Other [employer] Other 12-14-2023 13:10-0500Body vokoxz532.72 cmAmanda Igor Other [employer] Other 12-14-2023 13:10-0500Body mass index (BMI) [Ratio] 30.41 kg/l3Jozclr Igor Other [employer] Other 12-14-2023 13:10-0500Body jscdkqooboa065.1 [degF] Magnolia Igor Other [employer] Other 12-14-2023 13:10-0500Body .72 kgAmanda Igor Other [employer] Other 12-14-2023 13:10-0500Diastolic blood mm[Hg] Magnolia Igor Other [employer] Other 12-14-2023 13:10-0500Respiratory rate18 /minAmanda Igor Other [employer] Other 12-14-2023 13:10-7800RrR0% (BldA) [Mass fraction]96 % Magnolia Igor Other [employer] Other 12-14-2023 13:10-0500Systolic blood niyfytxx538 mm[Hg] Magnolia Costa Other [facility] [employer] Other 07-19-2023 13:35-0400Blood Pressure LocationJENNIFER MAXIMILIANO [facility]07-19-2023 13:35-0400Diastolic blood xafmoqra869 mm[Hg]EWA MAXIMILIANO [facility]07-19-2023 13:35-0400Heart rate81 /minJENNNIKKY CARRRY [facility]07-19-2023 13:35-0400Systolic blood tciuxuvk322 mm[Hg]EWA CARRRY [facility]01-16-2023 14:37-0500Blood Pressure LocationRobert RICE [facility]07-18-2022 14:30-0400Blood Pressure LocationRobert RICE [facility] 07-18-2022 14:30-0400Diastolic blood frsvgocu25 mm[Hg] Murali RICE [facility] 07-18-2022 14:30-0400Heart rate67 /minRobert RICE [facility] 07-18-2022 14:30-0400Respiratory rate16 /minRobert RICE [facility] [place] 616263-27-0290 14:30-0400Systolic blood mykpvnmi351 mm[Hg] Murali CHAVEZ [facility] [place] Encounters Encounter DateEncounter TypeCare ProviderFacilityStart: 02-08-2025 End: 61-16-6255ckhefzjcuiGiacraaChino Jones MDFacility:[facility] Start: 12-24-2024 End: 63-90-5405nthokvtyqaPaqkaha Washington DO Work Phone: [facility] Work Phone: Start: 12-24-2024 End: 86-21-6349Awxpkej encounter procedureEloy Garcia [facility] Work Phone: Start: 12-09-2024 End: 59-94-7410yniourpuxjUB CHARLES P HOUSEFacility:[facility] ClinicStart: 11-16-2024 End: 61-44-4524iaexvqhfbyFgiunay House DO Work Phone: [facility] Work Phone: Start: 11-16-2024 End: 81-81-4228Yjliuqe encounter procedureJun Ayala DO-[facility] Orthopedics Stefania Work Phone: Start: 10-12-2024 End: 79-59-3439cuhgjphvzuHGRVOALT E PERRYFacility:EU BellevueStart: 10-12-2024 End: 03-64-7311Cnnatha encounter procedureJENNIFER E MAXIMILIANO [facility] start: 11-33-5095ghwzlirifpRABDWRJJ PERRYFacility:EU BellevueStart: 10-08-2024 End: 14-46-0448pkyzbjywkuEetoxml House DO Work Phone: [facility] Work Phone: Start: 10-08-2024 End: 07-81-2569Jsqkwir encounter procedureSharon Rodriguez [employer]-[facility] Urgent Care Ismael Work Phone: Start: 32-46-6231Hlh-patient / Non-visitNicole [facility] OutPt Work Phone: Start: 07-01-2024 End: 86-23-2899Uvxqls flowsYamil Junior MD Work Phone: [facility] ENTStart: 07-01-2024 End: 91-40-8478Osxmpx Benny Junior MD Work Phone: [facility] ENTStart: 07-01-2024 End: 91-68-9101Opehom outpatient new 45 minutesEda Junior MD Work Phone: [facility] ENTComment on above:LINSEY (obstructive sleep apnea) (Primary Dx); LPRD (laryngopharyngeal reflux disease)Start: 07-01-2024 End: 66-29-9855lqoxgolsqzOLAHQQ H TIMMISNot AvailableStart: 06-10-2024 End: 14-07-3334gogxpicpeyHBUBGZK P HOUSEFacility:[facility] ClinicStart: 05-14-2024 ambulatoryDO FREDERICK P HOUSEFacility:[facility] ClinicStart: 05-09-2024 End: 21-56-7606dumguyvjsbFktscwcmi [facility] Work Phone: Start: 05-09-2024 End: 57-00-8709Xraoizu encounter procedureFirdru Physician Group-[facility] Urgent Care Ismael Work Phone: Start: 03-09-2024 End: 45-67-7650Fozndf flowsNayeli B Trishing ORTHOPEDICS PEDIATRIC PHYSICIAN Work Phone: [facility] ORTHOPAEDICSStart: 03-09-2024 End: 70-51-8961Hfdvtz flowsheetMaria B Apling ORTHOPEDICS PEDIATRIC PHYSICIAN Work Phone: [facility] ORTHOPAEDICSStart: 03-09-2024 End: 82-53-8926Jvvalp outpatient visit 15 minutesMaria B Apling ORTHOPEDICS PEDIATRIC PHYSICIAN Work Phone: [facility] ORTHOPAEDICSComment on above:Left shoulder pain, unspecified chronicity (Primary Dx); Glenohumeral arthritis, left; Arthritis of left acromioclavicular joint; Impingement of left shoulderStart: 03-09-2024 End: 91-20-3127lydmsnyuvjZDPIT B APLINGNot AvailableStart: 03-05-2024 End: 30-19-6785DhzryzVtpscwld Hearn ORTHOPEDICS PEDIATRIC PHYSICIAN Work Phone: [facility] CWM FMComment on above:Seasonal allergiesStart: 02-17-2024 End: 56-15-8418Dulngm flowsheetMaria B Apling ORTHOPEDICS PEDIATRIC PHYSICIAN Work Phone: [facility] ORTHOPAEDICSStart: 02-17-2024 End: 36-71-3597Ijheoo flowsheetMaria B Apling ORTHOPEDICS PEDIATRIC PHYSICIAN Work Phone: [facility] ORTHOPAEDICSStart: 02-17-2024 End: 41-36-8733Fzffqu outpatient new 45 minutesMaria B Apling ORTHOPEDICS PEDIATRIC PHYSICIAN Work Phone: [facility] ORTHOPAEDICSComment on above:Left shoulder pain, unspecified chronicity (Primary Dx); Glenohumeral arthritis, left; Arthritis of left acromioclavicular joint; Impingement of left shoulderStart: 02-17-2024 End: 40-90-6180ibmbkdeldgSPUSL B APLINGNot AvailableStart: 01-09-2024 End: 45-66-4753Qpnwca flowsheetBrittany Hearn ORTHOPEDICS PEDIATRIC PHYSICIAN Work Phone: [facility]WM FMStart: 01-09-2024 End: 73-10-3620Ocbhrn flowsheetBrittany Hearn ORTHOPEDICS PEDIATRIC PHYSICIAN Work Phone: NOGV CWM FMStart: 01-09-2024 End: 91-83-0896Nfghrc outpatient visit 15 minutesJosh Hearn ORTHOPEDICS PEDIATRIC PHYSICIAN Work Phone: [facility] CWM FMComment on above:Gordon's palsy (Primary Dx) Start: 01-09-2024 End: 49-84-2493wdywikxpgcCKSSBPFR FITZPATRICKNot AvailableStart: 12-31-2023 End: 60-63-1961Nnobnwtza department patient visitMetropolitan [facility] Hospital Ambulatory PPGStart: 12-28-2023 End: 96-36-6930welmnzfscrArefeglggSt. Mary's Medical Center Work Phone: Start: 12-28-2023 End: 92-82-7942Cqpmkpt encounter procedureAt[facility] Ur[facility] Ismael Work Phone: Start: 12-21-2023 End: 35-04-7667Rhmvba OnlyJosh Hearn ORTHOPEDICS PEDIATRIC PHYSICIAN Work Phone: [facility] CWM FMComment on above:Encounter for wellness examination in adult (Primary Dx)Start: 12-21-2023 End: 76-42-2511Scovduc encounter statusJosh Hearn ORTHOPEDICS PEDIATRIC PHYSICIAN Work Phone: [facility] Work Phone: Start: 12-12-2023 End: 85-38-4940Cbvwiuo preventive medicine new patient 65yrs&>Josh Hearn ORTHOPEDICS PEDIATRIC PHYSICIAN Work Phone: [facility] CWM FMComment on above:Primary hypertension (CMS/HCC) (Primary Dx); Encounter for wellness examination in adult; Seasonal allergies; Seasonal allergic rhinitis, unspecified trigger; Screening for hyperlipidemia; Screening for diabetes mellitusStart: 12-12-2023 End: 72-69-2305dyiuxqcgqtSEILXXIL FITZPATRICKNot AvailableStart: 12-12-2023 End: 10-22-7653Uujhpi flowsheetJosh Hearn ORTHOPEDICS PEDIATRIC PHYSICIAN Work Phone: [facility]WM FMStart: 12-12-2023 End: 08-43-7298Auliij flowsheetJosh Hearn ORTHOPEDICS PEDIATRIC PHYSICIAN Work Phone: [facility] CW FMStart: 12-12-2023 End: 58-91-8178Anoyhbp encounter statusJohs Hearn ORTHOPEDICS PEDIATRIC PHYSICIAN Work Phone: noms HealthcareStart: 11-01-2023 End: 71-64-2797ixjsqubtijBuzqxrkozAvita Health System Work Phone: Start: 11-01-2023 End: 20-44-2082Xerxnll encounter procedureAtrium Health [facility] Ur[facility] Ismael Work Phone: Start: 10-15-2023 End: 21-00-0751twzpilesklNGFNXDVF E PERRYFacility:EU BellevueStart: 10-15-2023 End: 05-35-2310Sahdntc encounter procedureJENNIFER E MAXIMILIANO [facility] start: 03-19-2023 End: 48-15-8554cutlqasrqxSlxp Hahn Other [employer] Other Start: 33-20-3030Nfyimz outpatient visit 15 minutes Myrna GoldenG [facility] Care ClydeStart: 03-15-2023 End: 64-28-4234pswjxroucfGmbltx Igor Other [employer] Other Start: 61-27-4118Aarabydsw encounterAmanda GrobFPG Urgent Care ClydeStart: 03-14-2023 End: 33-29-1561uyvgreukanVtovlz Igor Other [employer] Other Start: 59-82-5229Pymuet outpatient visit 15 minutes Magnolia GrobFPG [facility]gent Care ClydeStart: 10-17-2022 End: 90-25-7355Udujdgs encounter procedureJEALFIE RICHMOND [facility] [place] start: 05-24-2022 End: 97-02-8418crtweqirbqVJ CHARLES LISAFacility:W2Ahcid: 04-16-2022 End: 64-87-1270Etbqixa encounter procedureRobjose CHAVEZ [facility] [place] Start: 01-26-2022 End: 50-36-4222mgssypqwlvLZ MURALI CHAVEZFacility:U6Qynvy: 10-16-2021 End: 33-36-7404Nyqsgme encounter procedureRobjose CHAVEZ [facility] [place] Start: 09-08-2021 End: 33-16-1978yfbdqorddhPG CHARLES LISAFacility:M2Skjrv: 09-01-2021 End: 83-32-4241zyfljlubknOCBerna GONZALEZFacility:Z2Cibdn: 06-19-2018 End: 63-26-7513Ubvtzsd encounter procedureJACHIN [facility]ien [facility] HospitalStart: 05-29-2018 End: 31-84-9180Trebpau encounter procedureJAMES E [facility] Procedures DateProcedureProcedure DetailPerforming ClinicianStart: 78-53-8898Ldzwhobyxrdwvx aspir&/inj major jt/bursa w/o usMaria B Apling ORTHOPEDICS PEDIATRIC PHYSICIAN Work Phone: Start: 85-24-8465Bnaimbtvfnskwa aspir&/inj major jt/bursa w/o usMaria B Apling ORTHOPEDICS PEDIATRIC PHYSICIAN Work Phone: Start: 38-51-5390Mflpg shoulder complete minimum 2 viewsMaria B Apling ORTHOPEDICS PEDIATRIC PHYSICIAN Work Phone: Start: 33-17-9388YTI screeningDR FREDERICK HOUSEComment on above:Performed By: #### PSAD #### [facility] [address] [place] [address] Dr. Lazaro SamAppendectomyRobert RICE Decompression of median nerveRobert RICE Plan of Treatment DateCare ActivityDetailAuthorStart: 87-72-1629Mevbwvfskkzs Vaccine: 65+ Years (1 of 1 - PCV)Pneumococcal Vaccine: 65+ Years (1 of 1 - PCV)[facility] HealthcareComment on above:Postponed from 09/04/2012 (Patient Refused)Start: 09-12-2025Medicare Annual Wellness (AWV)Medicare Annual Wellness (AWV)[facility] HealthcareStart: 27-22-5307Owfqeplkj vaccinationInfluenza Vaccine (Season Ended)[facility] Start: 07-01-2024 End: 82-49-5904Hpjggmr encounter prylewtfo81/02/2025 10:50 AM EDT Office Visit [facility] [address] [facility] [address] [place] [address] Eda Junior MD [address] [facility] [address] [place] [address] ArrivedNOMS CI ENTComment on above:ArrivedStart: 03-12-2024 End: 70-30-0598Dlzhnvu encounter zrxpxkxfa26/12/2024 3:30 PM EST Office Visit [facility] [address] [place] [phone] Josh Hearn NP [address] [place] [id number] [facility] CW FMStart: 03-09-2024 End: 20-90-4539Enwrlyb encounter procedureNOMS CI ORTHOPAEDICSComment on above: Left shoulder pain, unspecified chronicity (Primary Dx); Glenohumeral arthritis, left; Arthritis of left acromioclavicular joint; Impingement of left shoulderStart: 72-08-7338Rwyissjke vaccinationInfluenza Vaccine (#1)[facility] HealthcareComment on above:Postponed from 12/01/2023 (Patient Refused)Start: 01-09-2024 End: 54-04-7446Zocetic encounter sxyjylaxj04/10/2024 2:00 PM EDT Office Visit [facility] [address] [place] [address] Josh Hearn, LINA [address] [place] [address] ArrivedNOMS CWM FMComment on above:ArrivedStart: 12-21-2023 End: 26-73-170500480728-uokieufaqlwmuj D3 [Mass/volume] in Serum or PlasmaVitamin D 25 hydroxy Lab Routine Encounter for wellness examination in adult Expected: 12/21/2023 (Approximate), Expires: 12/20/2024[facility] Work Phone: Comment on above:Expected: 12/21/2023 (Approximate), Expires: 12/20/2024Start: 12-13-2023 End: [id number] W Auto Differential panel - BloodCBC and differential Lab Routine Primary hypertension (CMS/HCC) Expected: 12/13/2023 (Approximate), Expires: 12/12/2024[facility]:Expected: 12/13/2023 (Approximate), Expires: 12/12/2024Start: 12-13-2023 End: [id number] metabolic 2000 panel - Serum or PlasmaComprehensive metabolic panel Lab Routine Primary hypertension (CMS/HCC) Screening for diabetes mellitus Expected: 12/13/2023 (Approximate), Expires: 12/12/2024[facility]:Expected: 12/13/2023 (Approximate), Expires: 12/12/2024Start: 12-13-2023 End: [id number] A1c/Hemoglobin.total in BloodHemoglobin A1c Lab Routine Screening for diabetes mellitus Expected: 12/13/2023 (Approximate), Expires: 12/12/2024[facility] HealthcareComment on above:Expected: 12/13/2023 (Approximate), Expires: 12/12/2024Start: 12-13-2023 End: 65-48-3190Teerl 1996 panel - Serum or PlasmaLipid panel Lab Routine Primary hypertension ([facility]/HCC) Screening for hyperlipidemia Expected: 12/13/2023 (Approximate), Expires: 12/12/2024[facility] HealthcareComment on above:Expected: 12/13/2023 (Approximate), Expires: 12/12/2024Start: 12-13-2023 End: 86-40-6600JLY W/REFLEX TO FT4TSH W/REFLEX TO FT4 Lab Routine Primary hypertension (CMS/HCC) Expected: 12/13/2023 (Approximate), Expires: 12/12/2024 [facility] Healthcare Work Phone: Comment on above:Expected: 12/13/2023 (Approximate), Expires: 12/12/2024Start: 12-12-2023 End: 71-16-4069Cbsxqfw encounter xxemfzoym97/12/2024 3:00 PM EDT Office Visit [facility] [address] [place] [address] Josh Hearn, ORTHOPEDICS PEDIATRIC PHYSICIAN [address] [place] [address] [facility]rived[facility] FMComment on above:ArrivedStart: 12-01-2023 Influenza vaccinationInfluenza Vaccine (#1)[facility] HealthcareStart: 09-04-2012 Pneumococcal Vaccine: 65+ Years (1 of 1 - PCV)Pneumococcal Vaccine: 65+ Years (1 of 1 - PCV)[facility] HealthcareStart: 06-06-1948Medicare Annual Wellness (AWV) Medicare Annual Wellness (AWV)[facility] Healthcare Shoulder - left [facility] Immunizations Immunization DateImmunizationNotesCare FpvvcichMkjkmemo69-61-1272AXUCCXO - Respiratory syncytial virus (RSV), vaccine, bivalent, protein subunit RSV prefusion F, diluent reconstituted, 0.5 mL, PFBrittany Eharn ORTHOPEDICS PEDIATRIC PHYSICIAN Work Phone: [facility] HospitalFfogbkuqrz80-09-6823GNXZ-FbP-4 (COVID-19) mRNA BNT-162b2 vaxRobert Global Filmdemic [facility]beighyComment on above:Result Comment: 2022-04-16: [id number]-QzG-7 (COVID-19) mRNA BNT-162b2 vaxRAdeyoh [facility] [id number]-AwG-5 (COVID-19) mRNA BNT-162b2 vax [employer] [facility]03-26-2021SARS-CoV-2 (COVID-19) mRNA-1273 vaccineRobert Global Filmdemic [facility] [id number]-GbK-8 (COVID-19) mRNA BNT-162b2 vax [employer] [facility]03-05-2021SARS-CoV-2 (COVID-19) mRNA-1273 vaccineRobert Global Filmdemic [facility] [id number] toxoid, reduced diphtheria toxoid, and acellular pertussis vaccine, adsorbedRobert RICE [facility]07-11-2013pneumococcal vaccine, unspecified formulationJosh Ramirezzpatrick ORTHOPEDICS PEDIATRIC PHYSICIAN Work Phone: [facility] Payers DatePayer CategoryPayerPolicy [id number] Private Health [id number] [id number] [id number]. [id number] [id number] [id number] 2.0.1.573166.3.57[id number] 2.0.1.947699.3.57[id number] 2.0.1.513455.3.57[id number] 2.0.1.031165.3.57[id number] 2.0.1.421845.3.57[id number] 2.840.1.907342.3.57[id number] 2.840.1.717207.3.57[id number] 2.840.1.516143.3.57[id number] 2.840.1.502058.3.57[id number] 2.16.840.1.210986.3.57[id number] 2.16.840.1.627674.3.579.[id number] 2.16.840.1.971720.3.57[id number] 2.16.840.1.079190.3.57[id number] 2.16.840.1.413125.3.57[id number] 2.16.840.1.529152.3.57[id number] 2.16.840.1.4[id number] 2.16.840.1.182132.19 Social History DateTypeDetailFacilityStart: 04-17-2021 End: 35-57-3769Chftuxw smoking statusNever smoked tobacco (finding)[facility] Tobacco smoking statusNeverExecutive [facility] Start: 12-12-2023 End: 42-47-9644Eml Assigned At [facility] Start: 35-09-8972Nis Assigned At [facility] Hospitaltart: 20-47-0045Abzzqtq use and exposureSmokeless tobacco non-userNOMS HealthcareStart: 12-12-2023 End: 15-54-7571Xpdurjnxa beverage intakeLifetime non-drinker (finding)[facility] HealthcareStart: 12-12-2023 End: 00-01-8024Vboyhhj of Social functionNOPR HealthcareStart: 93-77-1783Ghf assigned at birthNot on [facility], ColumbiaTobacco smoking status NHISTobacco smoking consumption unknownNOPR HealthcareStart: 09-27-2018 End: 44-33-1074RjfMrwt (finding)[facility] Hospitalexual OrientationExecutive [facility]rology of [facility] NEGATED: Highlighted rowStart: NINFHistory of tobacco usePassive smokerNOPR Healthcare Functional Status EzgkMzapesbheuRrhyjqJxpriuzx53-24-2834Mcbzrakquo StatusN/AExecutive [facility]rology of [facility]07-19-2023Functional StatusN/AExec[facility] of [facility]01-16-2023Functional StatusN/A [facility]07-18-2022Functional StatusN/A[facility] Clinical Notes 10-16-2021 to 10-12-2024 Note Date & LiktTkllMkmjocdc78-73-7142 Hospital Discharge instructions Patient Education 10/12/2024 13:29:44 [...] urethra. Follow these instructions at home: Take dxlt-izg-hgscpxg and prescription medicines only as told by [...] provider. Document Revised: 10/04/2021 Document Reviewed: 10/04/2021 [employer] Patient Education 2023 [employer]. Follow Up Care 04/15/2024 11:27:11 With:MAXIMILIANO MAIER, EWA Zapien, URL Address: [address] [address] When:Within 1 Year(s) [facility] 07-14-2025 Evaluation + Plan note Diagnostic Tests Pending * Testosterone Level Total 10/12/24 * Hemoglobin and Hematocrit 10/19/24 * Lipid Panel 10/19/24 * Hepatic Function Panel 10/19/24 * PSA Screen, Total 10/19/[address] [facility] 07-14-2025 NotePatient Education Urology Benign Prostatic Hyperplasia [...] Follow these instructions at home: ??? Take gqlt-vhv-fqiehqz and prescription medicines only as told by [...] symptoms do not get (more content not included)...[facility]07-10-2025 Evaluation note* Diagnosis Onset Date Resolution Status Admit Date Insect bites noneactiveJuly 2024 11:28amPrimary osteoarthritis, left shoulderacute November 16, 2024 11:03am [facility] Work Phone: 1(704) 609-349507-10-2025 Evaluation note* Diagnosis Onset Date Resolution Status Admit Date Insect bites noneactiveJuly 2024 11:28amPrimary osteoarthritis, left shoulderacute November 16, 2024 11:03amCentral apneaacuteSeptember 2024 1:32pmChronic insomniaacuteSeptember 2024 1:32pmHypnotic dependenceacuteSept2024 1:32pmObstructive sleep apneaacuteSept2024 1:[facility] Work Phone: 1(407) 864-944104-02-2025 History of Present illness Narrative* Eda Junior [...] Procedure Laterality Date CARPAL TUNNEL RELEASE Right 2014 DR ZARATE No Known Allergies Current Outpatient [...] below the titrated pressure documented in this encounterSaint John's Aurora Community HospitalOouirutnqx01-85-6206 History of Present illness Narrative* Brii Oconnor [...] as tolerated, f/U prn documented in this encounterSaint John's Aurora Community HospitalZkzqemijkn77-80-3355 History of Present illness Narrative* Brii Oconnor [...] arthritis of the glenohumeral joint. 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 Was seen in Ed on 12/31/23; Dx with [place] Palsy. Had a sinusinfection the weeks prior; [...] for Follow-up. HPI Was in ED for [place] Palsy on 12/31/2023- Had a sinus infection [...] seen in Ed on 12/31/23; Dx with [place] Palsy. Had a sinusinfection the weeks prior; [...] first. Pt verbalized understanding. documented in this encounterSaint John's Aurora Community HospitalSlejstqwvi58-81-2758 History of Present illness Narrative* Josh Hearn [...] for Establish Care (/). HPI Specialists: Neurology- [facility] Urology- Dr. Richmond HTN: Pt changed [...] (Diovan) 80 MG tablet documented in this encounterSaint John's Aurora Community HospitalQlfcxjuake47-09-0733 Instructions* Patient Instructions* Josh Hearn NP - [...] day. Consider tracking your food intake on MyLysosomal TherapeuticsinessPal or LoseIt Water: Increase water intake; GOAL [...] of sleep per night. documented in this encounterSaint John's Aurora Community HospitalJzjhoqnxep56-33-6565 Hospital Discharge instructions Patient Education 10/15/2023 13:38:59 [...] therapy. Follow these instructions at home: Take vfcc-ykt-nokbytk and prescription medicines only as told by [...] provider. Document Revised: 11/17/2020 Document Reviewed: 11/17/2020 [employer] Patient Education 2022 [employer]. Follow Up Care 10/17/2022 15:04:57 With:EWA RICHMOND PA-C, URL Address: [address] [place] [address] [phone] When: Unknown Comments:1 year w/ PSA, LFTs, Lipids, H&H, total T level [facility] 07-16-2024 Evaluation + Plan note Diagnostic Tests Pending * Testosterone Level Total 10/15/23 * Hepatic Function Panel 10/15/23 * Lipid Panel 10/15/23 * Hemoglobin and Hematocrit 10/15/23 * PSA Total 10/15/23 [facility] 07-16-2024 NotePatient Education Urology Hypogonadism, Male Male [...] Follow these instructions at home: ? Take uzgx-nrx-jbkotgb and prescription medicines only as told by [...] care provider. Document Revised: (more content not included)...[facility] 03-19-2023 Evaluation note* Encounter Date Diagnosis Assessment [...] today 120s/80s, he reports white coat syndrome. [employer] Other 12-14-2023 Evaluation note* Encounter Date Diagnosis [...] (suspected) exposure to covid-19 (ICD-10 - Z20.822) [employer] Other 07-19-2023 Hospital Discharge instructions Patient Education [...] therapy. Follow these instructions at home: Take qexz-evs-apdzhtc and prescription medicines only as told by [...] provider. Document Revised: 11/17/2020 Document Reviewed: 11/17/2020 [employer] Patient Education 2022 [employer]. Follow Up Care 08/31/2022 12:38:12 With:MAXIMILIANO MAIER EWA Curry, URL Address: [address] [place] [place] [address] When: Unknown [facility] 01-16-2023 Hospital Discharge instructions Patient [...] 06/24/2001 Document Revised: 07/09/2019 Document Reviewed: 02/11/2017 [employer] Patient Education 2020 [employer]. Follow Up Care 10/16/2021 15:07:22 With:SCOTT HOANG, Murali W, URL Address: [address] [place] [address]- When:6 months Comments:PSA & testosterone [facility] 07-18-2022 Hospital Discharge instructions Patient Education [...] urethra. Follow these instructions at home: Take fykp-cxr-hugzbqn and prescription medicines only as told by [...] 03/18/2006 Document Revised: 02/10/2019 Document Reviewed: 04/22/2017 [employer] Patient Education 2020 [employer]. 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[employer]uation + Plan note Future Appointments Appointment Date:04/16/2022 02:15:00 PM Scheduled Provider:Murali CHAVEZ MD Location:[facility] Appointment Type:URO Office Visit Diagnostic Tests Pending * Testosterone Level Total 10/16/21 [facility] [employer]altyaluation + Plan note Future Appointments Appointment Date:10/15/2022 02:15:00 PM Scheduled Provider:Murali CHAVEZ MD Location:[facility] Appointment Type:URO Office Visit Diagnostic Tests Pending * PSA Total 04/16/22 * Testosterone Level Total 04/16/22 [facility] Evaluation + Plan note Future Appointments Appointment Date:10/23/2023 01:20:00 PM Scheduled Provider:EWA RICHMOND PA-C Location[facility] Appointment Type:URO Office Visit Diagnostic Tests Pending * PSA Total 08/31/23 * Testosterone Level Total 10/17/22 * Hemoglobin and Hematocrit 08/31/23 * Hepatic Function Panel 08/31/23 * Lipid Panel 6/1/24 [facility] [place] evaluation noteNo [facility] [employer] Other Evaluation note* Diagnosis Onset Date Resolution Status Bee sting reaction acute [facility] Work Phone: Evaluation note* Diagnosis Onset Date Resolution Status Bee sting reaction acuteAcute maxillary sinusitis, unspecifiedacute [facility] Work Phone: Evaluation note* Diagnosis Primary [...] of left shoulder documented in this encounter [facility] HealthcareEvaluation note* Diagnosis Encounter for wellness examination in adult- Primary documented in this encounter [facility] HealthcareEvaluation note* Diagnosis Onset Date Resolution Status Admit Date Bronchitis acuteFebruary 2024 9:08am [facility] Work Phone: Evaluation note* Diagnosis Primary [...] mention of obstruction documented in this encounter [facility] HealthcareEvaluation noteNo assessment information availableFirUniversity Hospitals Geneva Medical Center Work Phone: History general Narrative - Reported* Type Description Date Medical History glaucoma Medical HistoryinsomniaMedical HistoryGERD (gastroesophageal reflux disease) Medical HistoryHypothyroidismSurgical HistorytonsillectomySurgical History appendectomySurgical Historycarpal tunnel release rightHospitalization History see above [employer] Other Hospital course Narrative No data available for this section [facility] Progress note No data available for this section [facility] Reason for referral (narrative)No reason for referral information availableBarberton Citizens Hospital Work Phone: Summary Purpose Family History No Family History Records Found Relationship Condition Age at Onset Recorded Date/T mason father Unknown motherDeceasedUnknown Advance Directives No Advanced Directives Records Found [...] and content) DATE CREATED AUTHOR 06/20/2018 [facility] DATE CREATED AUTHOR AUTHOR'S ORGANIZ ATION 05/29/2022 [facility] DATE CREATED AUTHOR AUTHOR'S ORGANIZ ATION 01/05/2024 [facility] DATE CREATED AUTHOR AUTHOR'S ORGANIZ ATION 07/04/2024 [facility] DATE CREATED AUTHOR AUTHOR'S ORGANIZ ATION 10/14/2024 [facility] DATE CREATED AUTHOR AUTHOR'S ORGANIZ ATION 02/09/2025 [facility] DATE CREATED AUTHOR AUTHOR'S ORGANIZ ATION 02/11/2025 [facility] Care Team (unrecognized sect ion and [...] Active Start: November 01, 2023 End: October 31Darlyn Posadas ProviderActiveStart: November 01, 2023 End: November 01, 2023 Team Status: Inactive Member Role Status Dates PHYSICIAN NO FAMILY Primary Care Provider Active Start: December 28, 2023 End: December 28, 2023Darlyn Clay ProviderActiveStart: December 28, 2023 End: December 28, 2023Team MemberRelationshipSpecialtyStart DateEnd Date Roddy Orona MD [address] [place] [address] PCP - GeneralFamily Medicine12/09/23 Josh Hearn NP [address] [place] [place] [address] Nurse PractitionerFamily Medicine12/09/23Team MemberRelationshipSpecialtyStart DateEnd Date Roddy Orona MD [address] [place] [address] PCP - GeneralFamily Medicine12/09/23 Josh Hearn NP [address] [place] [address] Nurse Practitionermily Medicine12/09/23Team MemberRelationshipSpecialtyStart DateEnd Date Frederick Gonzalez MD [address] [place] [address] PCP - GeneralCass County Health Systemly Jymnmywi68/18/24Team MemberRelationshipSpecialtyStart Date End Date Frederick Gonzalez MD [address] [place] [address] PCP - GeneralCass County Health Systemly Nfrjmbck45/18/24Team MemberRelationshipSpecialtyStart Date End Date Frederick Gonzalez MD [address] [place] [address] PCP - [facility]02/17/24Team MemberRelationshipSpecialtyStart Date End Date Roddy Orona MD [address] [place] [address] PCP - GeneralFamily Medicine12/09/23 Josh Hearn NP [address] [place] [address] Nurse PractitionerFannin Regional Hospital12/09/23Te MemberRelationshipSpecialtyStart DateEnd Date Roddy Orona MD [address] [place] [address] PCP - GeneralFamily Medicine12/09/23 Josh Hearn, LINA [address] [place] [address] Nurse Practitionermily Medicine12/09/23Team MemberRelationshipSpecialtyStart DateEnd Date Frederick Gonzalez MD [address] [place] [address] PCP - [facility]Char[facility] Zhhiuxoi73/18/24Team MemberRelationshipSpecialtyStart Date End Date Frederick Gonzalez MD [address] [place] [address] PCP - GeneralFannin Regional Hospital02/17/24Team MemberRelationshipSpecialtyStart Date End Date Roddy Orona MD [address] [place] [address] PCP - GeneralFamily Medicine12/09/23 Johs Hearn NP [address] [place] [address] Nurse PractitionerFannin Regional Hospital12/09/23 Team Status: Inactive Member Role Status Dates Frederick Gonzalez DO Primary Care Provider Active Start: May 09, 2024 End: May 09kirk Costa APRNAtdawna ProviderActiveStart: May 09, 2024 End: May 09, 2024Team MemberRelationshipSpecialtyStart DateEnd Date Frederick Gonzalez MD [address] [place] [address] PCP - GeneralFamily Iktuaouy01/18/24Team MemberRelationshipSpecialtyStart Date End Date Frederick Gonzalez MD [address] [place] [address] PCP - GeneralFamily Hkgzaorp45/18/24 Team Status: Inactive Member Role Status Dates Frederick Gonzalez DO Primary Care Provider Active Start: December 24, 2024 End: December 24, 2024Daviearlene Garcia MDAttending ProviderActiveStart: December 24, 2024 End: December 24, [...] BE BASED ON THE PRIMARY CLINICAL RECORDS. [facility]. provides no warranty or guarantee of the accuracy or completeness of information in this document.
--- OUTSIDE RECORDS SUMMARY | 2025-02-15 07:21 | XMS_ITS | Clinical Summary ---
Author Organization [facility] Address [facility] [address] [place] [address] Care Team Providers Care Director Of Veterans Affairs Name Role Phone Unavailable Primary Care Provider Unavailabl e Social History Tobacco UseTypesPacks/DayYears UsedDateSmoking Tobacco: Never AssessedChildcare AnswerDate FkuutpbmPulukwlyjSqduppe40/12/2019EmploymentAnswerDate Recorded EgnwslvwqlKvlyanw48/12/2019Sex and Gender InformationValueDate RecordedSex Assigned at BirthNot on fileLegal TiqJbla7611/04/2014 11:34 AM EDTGender Identity Not on fileSexual OrientationNot on file Plan of Treatment Not on file Medical Devices Not on file
--- OUTSIDE RECORDS SUMMARY | 2025-02-15 07:21 | XMS_ITS | Clinical Summary ---
Author Organization [facility] Address [address] [place] [address] Care Team Providers Care Baker Second Name Role Phone House, Frederick Bradley MD Primary Care Provider [phone] Allergies No known active allergies Medications MedicationSigDispense [...] 5Active Active Problems ProblemNoted DateDiagnosed DateChronic renal faklcpy8207/01/2024GERD without mqrhbwsjmup78/02/0373Pefwogit68/02/1574Udigucgu49/02/2025Osteoarthritis 07/01/20244133Hpodnuozt20/02/2025OSA on CPAP07/01/2024ell's palsy01/09/2024 Assessment & Plan (01/15/2024 8:41 AM EDT): Developed right sided facial asymmetry. Was seen in Ed on 12/31/23; Dx with [place] Palsy. Had a sinusinfection the weeks prior; [...] from provider first. Pt verbalized understanding. Primary kowkjfowfudu07/13/2024 Assessment & Plan (12/13/2023 12:47 PM EDT): [...] medication regimen at next visit. Screening for lrsucjhxytuoim90/13/2024Screening for diabetes wewztrif85/13/2024 Mhxqhwpsa71/12/4958Wykmpuexukvhkl87/12/2024symptomatic microscopic hematuria 12/12/2023MI 30.0-30.9,adult12/12/2023PH with urinary pjvzhimtizq51/12/2024 Male qjlbllyppgci71/12/2024Urinary icbxncaos13/12/2024Encounter to establish care12/12/2023Encounter for wellness examination in adult12/12/2023Seasonal allergic gthinpru67/12/2024 Assessment & Plan (12/13/2023 12:50 PM EDT): Ringing in ears has been ongoing for several years. Admits: Sinus congestion Runny nose Post nasal drip Initiated Flonase and cetirizine for allergy symptoms. Advised pt to continue this regimen, if no relief by next OV we can consider next steps such as ENT referral for tinnitus. Uizjyggczstkoe30/28/2019 Immunizations ImmunizationAdministration DatesNext DueABRYSVO - Respiratory syncytial virus (RSV), vaccine, bivalent, protein subunit RSV prefusion F, diluent reconstituted, 0.5 mL, PF2023Moderna SARS-CoV-2 Ffkzjqknjwd59/26/2021, 1Pneumococcal, Xupysxikhbs44/11/8624Awev02/10/2019 Family History Medical HistoryRelationNameCommentsNo Known ProblemsFatherNo Known Problems MotherRelationNameStatusCommentsFatherDeceasedMotherDeceased Social History Tobacco UseTypesPacks/DayYears UsedDateSmoking Tobacco: NeverPassive Smoke Exposure: NeverSmokeless Tobacco: Never Tobacco Cessation:Counseling Given: Not Answered Alcohol UseStandard Drinks/WeekCommentsNever0 (1 standard drink = 0.6 oz pure alcohol)PHQ-2AnswerDate RecordedPatient Health Questionnaire-2 Ogsrp367 Sex and Gender InformationValueDate RecordedSex Assigned at BirthNot on file Legal ZlcMiks2906/13/2022 6:46 PM EDTGender IdentityNot on fileSexual Orientation Not on file Last Filed Vital Signs Vital SignReadingTime TakenCommentsBlood Pfrrafhb120/7004 10:45 AM EDT Nwqpw1453 10:45 AM PHJAwpaohohzeh31.7 ??C (96.2 ??F)01/09/2024 1:47 PM EDTRespiratory Joeh7859 1:47 PM EDTOxygen Qkrkxnimyo28%01/09/2024 1:47 PM EDTInhaled Oxygen Concentration--Ulsivv96.7 kg (200 lb)07/01/2024 10:45 AM EQSDksicb467.6 cm (5' 6 )07/01/2024 10:45 AM EDTBody Mass Index32.28007/01/2024 10:45 AM EDT Plan of Treatment Not on file Insurance [place] [employer] [id number] Care Teams Team MemberRelationshipSpecialtyStart DateEnd Frederick Grimm MD [address] [place] [address] PCP - [facility]02/17/24
--- OUTSIDE RECORDS SUMMARY | 2025-02-15 07:21 | XMS_ITS | Clinical Summary ---
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 Name Role Phone Daniel Onofre Primary Care [...] Indications:Polycythemia,ErythrocytosisTake by mouth.Active Active Problems ProblemNoted DateDiagnosed ArxxBseddkkdctvodr16/28/2019 Family History Medical HistoryRelationCommentsParkinson???s DiseaseFathersmokerFatheresophageal cancerMotherhypothyroidismMotherBreast CancerSisterRelationStatusCommentsBrother AliveFatherDeceasedMotherDeceasedSisterDeceased Social History Tobacco UseTypesPacks/DayYears UsedDateSmoking Tobacco: NeverSmokeless Tobacco: NeverAlcohol UseStandard Drinks/WeekCommentsYes0 (1 standard drink = 0.6 oz pure alcohol)occasionallyPHQ-2AnswerDate RecordedPHQ-2 zjkhg059Area Deprivation IndexAnswerDate RecordedNational Score (1-100), lower number is lower riskNot on file03/08/2020State Score (1-10), lower number is lower riskNot on file03/08/2020Data from: https://www.neighborhoodatlas.[facility].[place].edu/. Last address used for calculationNot on file03/08/2020Sex and Gender Information ValueDate RecordedSex Assigned at BirthNot on fileLegal YbnOluc5805/14/2018 11:31 AM ESTGender IdentityNot on fileSexual OrientationNot on file Last Filed Vital Signs Vital SignReadingTime TakenCommentsBlood Prihfxtu779/9703 1:48 PM EDT Djwpn262906/19/2018 1:48 PM CEDQjjyncuxjti75.7 ??C (98 ??F)06/19/2018 1:48 PM EDT Respiratory Fsyw865606/19/2018 1:48 PM EDTOxygen Xljdpxnnlw07%06/19/2018 1:48 PM EDTInhaled Oxygen Concentration--Rqmuka66.6 kg (206 lb 4.8 oz)06/19/2018 1:48 PM WMDXeddht585.7 cm (5' 7.99 )06/19/2018 1:48 PM EDTBody Mass Index31.38006/19/2018 1:48 PM EDT Plan of Treatment Health MaintenanceDue DateLast DoneCommentsAnxiety Fmyquxazl74/06/1966Depression Wksethqxf06/06/1966Hepatitis C Bvyyzovcc61/06/1966Diabetes Dpidvuefc01/06/1993 Shingrix Vaccine (2 of 3)RSV Vaccine (1 - 1-dose 75+ series) 09/04/2022dvance Directive Nqfqxhgcid78/01/2025ovid-19 Vaccine (1 - 2024- season)2024Influenza Vaccine (#1)2024DTaP,Tdap,Td Vaccine (2 - Td or Tdap)Pneumococcal Vaccine: 50+Qyaldyjyn72/25/2015, 09/29/2012 Insurance Care Teams Team MemberRelationshipSpecialtyStart DateEnd Date Daniel Onofre DO [address] [facility] [place] [address] PCP - GeneralFamily Medicine05/14/18
[2025-02-15 07:23] VITALS: BP 161/83; PULSE 89; TEMP 36.7; O2SAT 98
[2025-02-15 08:04] VITALS: BP 167/81; PULSE 84; O2SAT 96
[2025-02-15 08:05] VITALS: BP 167/82; PULSE 82; O2SAT 94
[2025-02-15] MEDS: BUPIVACAINE HCL 0.25% PF 25 MG/10 ML VIAL INJ (08:05)
[2025-02-15] MEDS: LIDOCAINE HCL 2% 400 MG/20 ML MDV INJ (08:06)
[2025-02-15] MEDS: METHYLPREDNISOLONE ACETATE 40 MG/ML VIAL INJ (08:06)
--- NOTE | 2025-02-15 08:08 | W.PM.PROCNOT ---
Date of procedure: 02/15/25 Pre-op diagnosis: Pain due to left shoulder osteoarthritis Post-op diagnosis: same as pre-op Procedure: Procedure: Left suprascapular and axillary nerve block Medications: Bupivacaine 0.25% 2cc, lidocaine 2% 1cc, depomedrol 40mg The patient was seen and examined in the preoperative holding area. Informed consent was obtained and placed on the chart.? The patient was brought to the medical procedure unit and placed in the prone position. A timeout was completed verifying correct patient, procedure site, positioning, plan, and special equipment.? Using aseptic technique, under direct fluoroscopic visualization, a 25-gauge 3-1/2 inch spinal needle was advanced to the superior portion of the left posterior osseous rim of the glenoid fossa, lateral and superior to the spinal glenoid notch.? 0.5 cc of the above solution was injected.? The needle was then redirected 3 mm inferiorly and another 0.5 cc of the above medication was injected.? This needle was then removed.? Using aseptic technique, under direct fluoroscopic visualization, another 25-gauge 3-1/2 inch spinal needle was advanced toward the most inferior and lateral border of the greater tubercle.? 0.5 cc of the above medication was administered.? The needle was then redirected 3 mm inferiorly.? 0.5 cc was administered in this region.? This needle was removed. ? The patient was taken to the postprocedural recovery area and monitored for an appropriate length of time before being found suitable for discharge in the accompaniment of a responsible adult. Anesthesia: Local Surgeon: David Jones Pathology: none sent Condition: stable Disposition: no change
== END 2025-02-15 08:12 | disposition home or self-care (01) ==
LOC: SURGOUT 07:17
PROVIDERS: PCP Family Medicine; Visit Provider Anesthesiology
DX: M19.012 Primary osteoarthritis, left shoulder (principal); M25.512 Pain in left shoulder
CPT/HCPCS: 64417; 64418; J0665; J1010

== ENCOUNTER 2025-02-24 12:34 | Outpatient (OUT) | payer MEDICARE, OTHER, SELFPAY ==
--- OUTSIDE RECORDS SUMMARY | 2025-02-16 08:11 | XMS_ITS | Continuity of Care Document ---
Author Organization [facility] Address [address] [place] [address] Phone Care Team Providers Care Manager Applied Name Role Phone Frederick Arias DO Primary Care Provider Eloy Garcia MD Attending Provider Paige Melendrez APRN Attending Provider Care Teams Patient Care Team Team Status: Active Member Role/Relationship Status Dates Frederick Arias DO Primary Care Provider Active Visit Care Team Team Status: Inactive Member Role/Relationship Status Dates Frederick Arias DO Primary Care Provider Active Start: December 24, 2024 End: December 24, 2024DaLove Person ProviderActiveStart: December 24, 2024 End: December 24, 2024 Patient Care Team Team Status: Inactive Member Role/Relationship Status Dates Frederick Arias DO Primary Care Provider Active Start: February 16, 2025 End: February 16, 2025Darlyn Clay ProviderActiveStart: February 16, 2025 End: February 16, 2025 Chief Complaint and Reason for Visit Chief Complaint Admit Date G47.33 December 24, 2024 1:32pm Congestion February 16, 2025 12:39pm Reason for Visit Admit Date Central apnea December 24, 2024 1:32pm Chronic insomnia December 24, 2024 1:32pm Hypnotic dependence December 24, 2024 1:32pm Obstructive sleep apnea December 24, 2024 1:32pm Primary hypertension December 24 1:32pm Allergies, Adverse Reactions, Alerts Allergen Type Severity Reaction Last Updated Verified Status No Known Allergies Allergy Unknown February 16, 2025 12:42pmYesActive Social History Smoking Status Status Start Date End Date Date of Observa tion Never smoked tobacco (finding) May 09, 2024 9:31am Observation Status Observation Response Date of Response Legal Sex [facility] (finding) [facility] Family History Relationship Condition Age at [...] insomnia December 24, 2024 2:05pm Unknown Active Hypothyroidism October 08, 2024 10:28am Unknown Ac tive Bee sting reaction November 01, 2023 2:13pm Unknown Active Primary hypertension December 24, 2024 4:08pm Unkno wn Active Bronchitis May 09, 2024 9:56am Unknown Ac tive Medications Medication Status Dose Units Route Directions Qty Days Refills S tart Date Stop Date End Date Reason(s) Instructions Adherence Zolpidem 12.5 mg tablet,ext release multiphase A ctive MGPOAugust 2023 11:00pmComplies with drug therapyTestosterone Cypionate 100 mg/mL rfeMarrqt85EDBH.T0sbcnNuftie 2023 11:00pmComplies with drug therapy Timolol 0.5 % kvghqJxaqmikoslpt2RKXRTLOP-GJEJOnkbcUnvgts 2023 11:00pm December 28, 2023 10:22amValsartan 40 mg iamfrsVzvlxzsqtkau52XZOBFecppElwdti 2023 11:00pmSept2023 10:22amOmeprazole 10 mg capsule,delayed release(DR/EC)Srzahnzfhmdb65ALROCgooqOtsznt 2023 11:00pmpt2024 1:08pmMethylprednisolone (Medrol (Jean-Claude)) 4 mg tablets,dose packDiscontinued0 POper package ipvbffzjhq284Ntqmrq 2023 11:00pmpt2023 10:19am PO PER PKG DIRValsartan 40 mg zsheccIwamzardqapi22OMZPHntloIhsuwqlrh 2023 10:20amSeptember 2023 10:22amPrednisone 20 mg itodqqWazqcdbfcxoz56ALOE Zvhxn457Fvvxxqdb 2024 12:00amSept2024 1:07pmAlbuterol Sulfate 90 mcg/actuation HFA aerosol sszjvtsImibhm1IOEKBFDZMCOUSGVEZH 4-6 HOURS as needed for shortness of breath or wheezing6.70February 2024 12:00amComplies with drug therapyBenzonatate 100 mg syalzhqTifpbgftchza061BAETKkheu times daily as needed for zgird03Pqnojfpl 2024 12:00amSeptember 2024 1:08pm Prednisone 10 mg nvyzyeSodxrrrmkdol97MDEOLw Wfntdugr5373Exwi 2024 11:00pm December 24, 2024 1:07pm4 tablets x 3 days, 2 tablets x 3 days, 1 tablet x 3 daysLoratadine (Allergy Relief (Loratadine)) 10 mg mrsgylQyoxdd40DPMBIdheg December 27, 2023 11:00pmComplies with drug therapyFluticasone Propionate 50 mcg/actuation spray,suspensionActiveINTRANASALSeptember 2023 11:00pm Complies with drug therapyValsartan 80 mg cvnmllUxzvsukvqqxx87ANYYKmodsGbpkreddf 2023 11:00pmSeptember 2024 1:08pmTimolol Maleate 0.25 % dropsActive1 DROPSOPHTHALMICOnceSeptember 2023 11:00pmComplies with drug therapy Amoxicillin-Pot Clavulanate 875-125 mg qvaotyJecwalbfeixw1DIOHZTfgso 12 hours20 100September 2023 11:00pmFebruary 2024 9:29amAmlodipine 5 mg tablet Iukslpqmezhh4BPNYKggftPhbmwcdgs 24th, 2025 11:00pmNovember 2024 12:43pm Omeprazole Magnesium (Prilosec Otc) 20 mg tablet,delayed release (DR/EC)Hiujsm10 MGPODailySeptember 2024 11:00pmComplies with drug therapyTadalafil 5 mg xhtowzKpifzv9IGKUHdtxvSshiuzqdw 24th, 2025 11:00pmComplies with drug therapy Tizanidine 4 mg tabletActiveMGPONovember 2024 12:00amComplies with drug therapyAmlodipine 10 mg tabletActiveMGPONovember 2024 12:00amComplies with drug therapyGabapentin 300 mg capsuleActiveMGPONovember 2024 12:00am Complies with drug therapyDoxycycline Hyclate 100 mg lheqtolTslhwy385QDNVSkpnp tkhmj05078Loezmzio2024 12:00amComplies with drug therapy Vital Signs Vital Reading Result Reference Range Collection Date/Time Height 68 [in_i] December 24, 2024 1:91xxOxpfql31.45 kgSeptember 2024 1:11pmHeart Rate78 /omo84-187Mmmfqmeat 25th, 2025 1:11pmOxygen saturation by Pulse rlegvhjv60 % 95-100Sept2024 1:11pmBP Tlgrsezi182 mm[Hg]100-140Sept2024 1:11pmBP Zlpforraj44 mm[Hg]60-100Sept2024 1:11pmBMI (Body Mass Index)29.6 kg/d5Qpcvabhrl2024 1:34uqDblopi86 [in_i]February 16, 2025 12:72irOalryl82.86 [facility]Trans[facility]2024 12:50pmBody Oudpvigimpv74.9 [degF] 97.6-99.0[facility] 20[facility] 12:50pmHeart Rate91 /zpt25-131Sburxyjt 18th, 2025 12:50pmRespiratory rate18 /cge20-05Hrufatdr 18th, 2025 12:50pmOxygen saturation by Pulse zfaveygz94 %95-100Nov2024 12:50pmBP Hhepwfqg058 mm[Hg] 100-140Nov2024 12:50pmBP Rqwlvjxvg94 mm[Hg]60-100Nov2024 12:50pmBMI (Body Mass Index)30.1 kg/x2Ypgljuyg2024 12:50pm Advance Directives Advance Directive Response Recorded Date/ Time Advance Directives No October 31 024 1:36pm Insurance Providers Guarantor Lamont Aguirre Lauracatarino Address [address] [address]Contact Info.Home Phone: Payer Group Member ID Coverage Type Subscriber Relationship to Subscriber Effective Date Expiration Date Medicare [id number] G Miesle Id: [id number] [address] [facility] [address] Home Phone: Email: [email or web address] [id number] G Miesle Id: [id number] [address] [facility] [address] Home Phone: Email: [email or web address] Encounters Encounter Location(s) Arrival/Admit Date Discharge/Departure Date Discharge/Departure Disposition Provider(s) Departed Physician/ Provider Office Visit -[facility] December 24, 2024 1:32pm December 24, 2024 3:59pm Discharged to home care or self care (routine discharge) Eloy Garcia MD Departed Physician/ Provider Office Visit -[facility] February 16, 2025 12:39pm February 16, 2025 1:10pm Discharged to home care or self care (routine discharge) 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 Recent Diagnosis Onset Date Admit Date Central apnea Unknown December 24, 2024 1:32pm Chronic insomnia Unknown December 24, 2024 1:32pm Hypnotic dependence Unknown December 242024 1:32pm Obstructive sleep apnea Unknown 2024 1:32pm Primary hypertension Unknown December 012024 1:32pm Assessments Author Eloy Garcia [facility]2024 4:09pmAdvised to call or contact through portal if any problems sooner Plan of Treatment Author Eloy Garcia [facility] 2024 4:09pmMr Lowery presents with a complex picture and a very long, difficult to untangle, history. His original study from 2005 is not available, but his split-night study from 2022 clearly shows that CPAP 12 cm was effective in controlling sleep apnea. He is not using that pressure as it was incompatible with his current nasal pillows; he was unable to tolerate a traditional fullface mask due to high leakage. He did not tolerate and absolutely hated Auto CPAP, but his self-management of pressures with machine set at lower levels has not successfully controlled his sleep disordered breathing. I extensively reviewed his voluminous records, and advised that the central apneas did not occur and that his sleep apnea was well-controlled at CPAP 12 cm. The fact that he could not use nasal pillow due to mouth leak at that pressure simply means he needs a different mask, and we discussed the variety of modified fullface masks and all available that could solve the difficulties he had with a traditional FFM. Already in order to get his CPAP up to 12 cm (though it looks like he may adjust that himself), and we will see if he can get that new equipment. Should these changes control his obstructive sleep apnea without causing the download to show central apneas, our sleep disordered breathing goals will have been met. Should he continue to have difficulties, or should there continue to be central apneas, he would need polysomnography for titration to achieve control of both these problems. I reviewed his voluminous past records and personal notes He did not have central apneas on his PSG, so I am hopeful that he does not actually have complex sleep apnea and that the centrals that dominate his downloads are being caused by other factors (mask or mouth leak, medication side effects). If this were the case the above changes should resolve the central apneas, but if he continues to have central apneas polysomnography with split-night protocol would be indicated. I did discuss the relationship between [employer] suppressants including hypnotics, and central apnea frequency. He has had chronic psychophysiologic insomnia, but has also had abysmally poor sleep hygiene practices. He is always just laid in bed trying to sleep when he had insomnia, and he has tended to push for long times in bed whether he has insomnia or not. He admits to having considerable psychologic stress when not able to sleep, and after discussion states that he could see how this could worsen his sleep onset difficulties when bedtime comes. I extensively discussed good sleep hygiene, and explained how being in bed worsens insomnia dramatically. I explained that his awakening time of 6 AM should be a good target, but that going to bed between 930 and 10 can worsen his insomnia (and dependence on medication) due to long time in bed. He reports that if he does stay up to 11 he tends to get back to sleep at 5 AM and awaken at 6 AM. I advised him to change his bedtime to 11 PM, and to adjust his Ambien CR to that bedtime. We will not change dose now, but we will have him implement better sleep hygiene practices going forward. Should he have morning hangover on this dose of Ambien CR, we may be able to switch back to Ambien by reducing time in bed. I extensively discussed the circadian rhythm system and the process of normal sleep initiation and maintenance. I reviewed how this impacts sleep hygiene recommendations, and discussed those recommendations in detail. I emphasized the importance of getting up at the same time every day, and especially of not being in bed awake if unable to sleep. If the patient is in bed and unable to sleep more than 15 to 20 minutes the patient should get out of the bed and ideally read something boring until they are tired enough to fall back to sleep. They should avoid all naps. Handout materials were provided with specific instructions for the patient's situation. He has been dependent on hypnotics for sleep for a very long time, and the idea of not having them does add some stress. He admits he is dependent on these agents. However, he is looking forward to being able to work off these meds in the future. I do not plan on trying that until we have established better sleep hygiene practices, and until we have confirmed good control of sleep apnea with good toleration. Obstructive sleep apnea can significantly worsen blood pressure control. Patients with untreated sleep apnea have higher average blood pressures, but also have substantial variability in blood pressure day to day and even hour to hour. Treating underlying sleep apnea often reduces mean systolic and diastolic blood pressure, but can also substantially reduce variability between measurements. Future Tests Future scheduled test information is unavailable Pending Tests Pending diagnostic test information is unavailable Future Visits Future appointment information is unavailable Future Procedures Future procedure information is unavailable Future Medications Future medication information is unavailable Patient Instructions Patient instructions are unavailable
--- OUTSIDE RECORDS SUMMARY | 2025-02-24 12:37 | XMS_ITS | Clinical Summary ---
Author Organization [facility] Address [address] [place], [place] [address] Care Team Providers Care X Ray Equipment Servicer Name Role Phone Daniel Onofre Primary Care [...] Indications:Polycythemia,ErythrocytosisTake by mouth.Active Active Problems ProblemNoted DateDiagnosed JpdqIwmvwwbuyxbymu37/28/2019 Family History Medical HistoryRelationCommentsParkinson???s DiseaseFathersmokerFatheresophageal cancerMotherhypothyroidismMotherBreast CancerSisterRelationStatusCommentsBrother AliveFatherDeceasedMotherDeceasedSisterDeceased Social History Tobacco UseTypesPacks/DayYears UsedDateSmoking Tobacco: NeverSmokeless Tobacco: NeverAlcohol UseStandard Drinks/WeekCommentsYes0 (1 standard drink = 0.6 oz pure alcohol)occasionallyPHQ-2AnswerDate RecordedPHQ-2 zpawg177Area Deprivation IndexAnswerDate RecordedNational Score (1-100), lower number is lower riskNot on file03/08/2020State Score (1-10), lower number is lower riskNot on file03/08/2020Data from: https://www.neighborhoodatlas.[facility].edu/. Last address used for calculationNot on file03/08/2020Sex and Gender Information ValueDate RecordedSex Assigned at BirthNot on fileLegal VnhZaaj9705/14/2018 11:31 AM ESTGender IdentityNot on fileSexual OrientationNot on file Last Filed Vital Signs Vital SignReadingTime TakenCommentsBlood Kamabhyf656/9703 1:48 PM EDT Zgrve415306/19/2018 1:48 PM VJOVwihocdqumn66.7 ??C (98 ??F)06/19/2018 1:48 PM EDT Respiratory Gohs584906/19/2018 1:48 PM EDTOxygen Narhbyufhp76%06/19/2018 1:48 PM EDTInhaled Oxygen Concentration--Uplobj23.6 kg (206 lb 4.8 oz)06/19/2018 1:48 PM XEVPrjdkv369.7 cm (5' 7.99 )06/19/2018 1:48 PM EDTBody Mass Index31.38006/19/2018 1:48 PM EDT Plan of Treatment Health MaintenanceDue DateLast DoneCommentsAnxiety Szjkmdfhk05/06/1966Depression Ryiiuvolw81/06/1966Hepatitis C Wdnusvzqa89/06/1966Diabetes Ipilvzmti82/06/1993 Shingrix Vaccine (2 of 3)RSV Vaccine (1 - 1-dose 75+ series) 09/04/2022dvance Directive Xeebezqkhx01/01/2025ovid-19 Vaccine (1 - 2024- season)2024Influenza Vaccine (#1)2024DTaP,Tdap,Td Vaccine (2 - Td or Tdap)Pneumococcal Vaccine: 50+Xgtajofxh96/25/2015, 09/29/2012 Insurance Care Teams Team MemberRelationshipSpecialtyStart DateEnd Date Daniel Onofre DO [address] [facility] [place] [address] PCP - GeneralFamily Medicine05/14/18
--- OUTSIDE RECORDS SUMMARY | 2025-02-24 12:37 | XMS_ITS | Clinical Summary ---
Author Organization [facility] Address [facility] [address] [place] [address] Care Team Providers Care Shipboard Intelligence Analyst Name Role Phone Unavailable Primary Care Provider Unavailabl e Social History Tobacco UseTypesPacks/DayYears UsedDateSmoking Tobacco: Never AssessedChildcare AnswerDate QynsqmpvAkvfkfqaxIscqbwt96/12/2019EmploymentAnswerDate Recorded CackahopemSwlhnep49/12/2019Sex and Gender InformationValueDate RecordedSex Assigned at BirthNot on fileLegal DblHipc6911/04/2014 11:34 AM EDTGender Identity Not on fileSexual OrientationNot on file Plan of Treatment Not on file Medical Devices Not on file
--- OUTSIDE RECORDS SUMMARY | 2025-02-24 12:37 | XMS_ITS | Clinical Summary ---
Author Organization [facility] Address [address] [place] [address] Care Team Providers Care Car Designer Name Role Phone House, Frederick Bradley MD Primary Care Provider [phone] Allergies No known active allergies Medications MedicationSigDispense [...] 5Active Active Problems ProblemNoted DateDiagnosed DateChronic renal sajnhga3407/01/2024GERD without wredlriajie02/02/6509Eyadylkh92/02/3437Mwydmzxy37/02/2025Osteoarthritis 07/01/20246913Guztvdxns21/02/2025OSA on CPAP07/01/2024ell's palsy01/09/2024 Assessment & Plan (01/15/2024 8:41 AM EDT): Developed right sided facial asymmetry. Was seen in [place] on 12/31/23; Dx with Drummond Palsy. Had a sinusinfection the weeks prior; [...] from provider first. Pt verbalized understanding. Primary drpiizcdnpip88/13/2024 Assessment & Plan (12/13/2023 12:47 PM EDT): [...] medication regimen at next visit. Screening for pdaeleapewjszi59/13/2024Screening for diabetes wgljzpxy54/13/2024 Ubbktgwfv30/12/0742Oauhkivzwuzbqs57/12/2024symptomatic microscopic hematuria 12/12/2023MI 30.0-30.9,adult12/12/2023PH with urinary rorrllvhcja91/12/2024 Male qugkohamgulr18/12/2024Urinary uenwdbqyx59/12/2024Encounter to establish care12/12/2023Encounter for wellness examination in adult12/12/2023Seasonal allergic zoiprohu37/12/2024 Assessment & Plan (12/13/2023 12:50 PM EDT): Ringing in ears has been ongoing for several years. Admits: Sinus congestion Runny nose Post nasal drip Initiated Flonase and cetirizine for allergy symptoms. Advised pt to continue this regimen, if no relief by next OV we can consider next steps such as ENT referral for tinnitus. Njapandhsjhtlh88/28/2019 Immunizations ImmunizationAdministration DatesNext DueABRYSVO - Respiratory syncytial virus (RSV), vaccine, bivalent, protein subunit RSV prefusion F, diluent reconstituted, 0.5 mL, PF2023Moderna SARS-CoV-2 Exnnrfrhynb54/26/2021, 1Pneumococcal, Chtnrjwdohg55/11/7404Uewh43/10/2019 Family History Medical HistoryRelationNameCommentsNo Known ProblemsFatherNo Known Problems MotherRelationNameStatusCommentsFatherDeceasedMotherDeceased Social History Tobacco UseTypesPacks/DayYears UsedDateSmoking Tobacco: NeverPassive Smoke Exposure: NeverSmokeless Tobacco: Never Tobacco Cessation:Counseling Given: Not Answered Alcohol UseStandard Drinks/WeekCommentsNever0 (1 standard drink = 0.6 oz pure alcohol)PHQ-2AnswerDate RecordedPatient Health Questionnaire-2 Opezz049 Sex and Gender InformationValueDate RecordedSex Assigned at BirthNot on file Legal PmlIvgj9106/13/2022 6:46 PM EDTGender IdentityNot on fileSexual Orientation Not on file Last Filed Vital Signs Vital SignReadingTime TakenCommentsBlood Jfjxfgge777/7004 10:45 AM EDT Eseoy7933 10:45 AM XVFJnynxstsyie62.7 ??C (96.2 ??F)01/09/2024 1:47 PM EDTRespiratory Mwmu0405 1:47 PM EDTOxygen Avladaicit90%01/09/2024 1:47 PM EDTInhaled Oxygen Concentration--Zmkjxx13.7 kg (200 lb)07/01/2024 10:45 AM VTCGryvje695.6 cm (5' 6 )07/01/2024 10:45 AM EDTBody Mass Index32.28007/01/2024 10:45 AM EDT Plan of Treatment Not on file Insurance [place] [employer] [id number] Care Teams Team MemberRelationshipSpecialtyStart DateEnd Frederick Grimm MD [address] [place] [id number] PCP - [facility]02/17/24
--- OUTSIDE RECORDS SUMMARY | 2025-02-24 12:39 | XMS_ITS | CCD ---
Author Organization [facility] CliniSyid Care Team Providers Care Various Exceptionalities Teacher Name Role Phone NARCISO MARINELLI Attending Unavailable RICE, MURLAI Blancas Referring Unavailable FANNING, NARCISO Zapien Referring Unavailable FANNING, NARCISO Zapien Attending Unavailable RUPERTO BLAS Referring Unavailab Frederick Villafuerte Primary Care Physician [phone] LISA, DR HARMAN Primary Care Unavailable RICE, [...] Care Provider Sharon Rodriguez APRN Attending Provider [phone] FREDERICK GONZALEZ Primary Care Physician EWA RICHMOND Attending Unavailable EWA RICHMOND Attending Unavailable House Frederick Primary Care Provider [phone] Nancy Quintanilla DO Attending Provider [phone] Jun Ayala DO Attending Provider Jose HOANG, Eloy Whittaker Attending Provider HOUSE, [...] [No Known Medication Allergies]Propensity to adverse reactions (disorder)[facility] Repository Medications Current Medications MedicationDrug Class(es)DatesSig (Normalized)Sig (Original)sensor 200 actuat albuterol 0.09 mg/actuat dry powder inhaler (6 sources)beta2-Adrenergic AgonistStart: 22-51-9511vbqkehdam (ProAir Digihaler) 90 mcg/act breath-activated inhaler (w/ sensor) 0 Refill(s) 5Active Start: 77-40-2681Urukceqft Sulfate 90 mcg/actuation HFA aerosol inhaler Active 2 INH INHALATION EVERY 4-6 HOURS as needed for shortness of breath or wheezing 6.7 May 09, 2024 1:00am Complies with drug therapyAlbuterol Sulfate 90 mcg/actuation HFA aerosol inhaler (1 source)Start: 86-15-5414Yasuangpb Sulfate 90 mcg/actuation HFA aerosol inhaler Active 2 INH INHALATION EVERY 4-6 HOURS as needed for shortness of breath or wheezing 6.7 May 09, 2024 12:00amALPRAZolam 0.5 mg oral tablet (3 sources)BenzodiazepineStart: 07-97-7936GVEYCTkpmc (Xanax) 0.5 MG tablet 0.5 mg 05/14/2024 ActiveamLODIPine 5 mg oral tablet (1 source)Dihydropyridine Calcium Channel BlockerStart: 01-18-0099mjfe 1 tablet by mouth once dailyAmlodipine 5 mg tablet Active 5 MG PO Daily December 24, 2024 12:00am Complies with drug therapyazithromycin 250 mg oral tablet (2 sources)Macrolide AntimicrobialStart: 71-46-0588Llbdymvfa Z-Jean-Claude 250 MG as directed Orally Mar, Activecholecalciferol (Vitamin D3) 200 Unit tablet split tablet (16 sources)cholecalciferol (Vitamin D3) 200 Unit tablet split tablet Take by mouth Activedoxycycline hyclate 100 mg oral capsule (3 sources)Tetracycline-class DrugStart: 06-10-2024 End: 55-06-4263cfzscobabto (Vibramycin) 100 MG capsule 100 mg 06/10/2024 07/01/2024 Discontinued (Therapy completed)famotidine 20 mg oral tablet (2 sources)Histamine-2 Receptor AntagonistStart: 07-01-2024 End: 88-65-3785qexi 1 tablet by mouth at bedtimefamotidine (Pepcid) 20 MG tablet Indications: LPRD (laryngopharyngeal reflux disease) Take 1 tablet(20 mg) by mouth at bedtime 90 tablet 07/01/2024 09/29/2024 Activefluticasone propionate 0.05 mg/actuat metered dose nasal spray (20 sources)CorticosteroidStart: 12-12-2023 End: 48-44-0851Wznefcjnudo Propionate 50 mcg/actuation spray,suspension Active INTRANASAL December 28, 2023 12:00am Complies with drug therapylevothyroxine sodium 0.075 mg oral tablet (6 sources)l-ThyroxineStart: 68-46-0660szqh 1 tablet by mouth once daily levothyroxine [...] mg oral tablet (20 sources)Start: 12-28-2023 End: 14-09-9234pdfs 1 tablet by mouth once dailyLoratadine (Allergy Relief (Loratadine)) 10 mg tablet Active 10 MG PO Daily December 28, 2023 12:00am Complies with drug therapyStart: 12-12-2023 End: 54-98-0238sbjy 1 capsule by mouth at bedtimeLoratadine 10 MG capsule Indications: Seasonal allergies Take 10 mg by mouth at bedtime 30 capsule 2 12/12/2023 03/05/2024 Discontinuedomeprazole 20 mg delayed release oral tablet (20 sources)Proton Pump InhibitorStart: 32-63-6938bbbv 1 tablet by mouth once dailyOmeprazole Magnesium (Prilosec Otc) 20 mg tablet,delayed release (DR/EC) Active 20 MG PO Daily December 24, 2024 12:00am Complies with drug therapy Start: 07-01-2024 End: 48-57-1756ijej 1 capsule by mouth before mealtimeomeprazole (PriLOSEC) [address] capsule Indications: LPRD (laryngopharyngeal reflux disease) Take 1 c apsule (40 mg) by mouth in the morning. Take before meals. Do not crush or chew.. 90 capsule 07/01/2024 09/29/2024 ActiveStart: 12-29-2018 End: 45-97-4327mcfc 1 capsule by mouth once dailyOmeprazole 10 mg capsule,delayed release(DR/EC) Discontinued 10 MG PO Daily November 01, 2023 12:00am December 24, 2024 2:08pm End: 08-66-0632nfkoykphbi OTC (PriLOSEC OTC) 20 MG EC tablet Prilosec OTC 10mg QD 07/01/2024 Discontinued (Therapycompleted)take 1 capsule by mouth once daily PriLOSEC 10 MG 1 capsule 30 minutes before morning meal Orally Once a day Active predniSONE (8 sources)Start: 49-58-9947yqbilcLXQP 10 mg Tab See Instructions, Refills(s) 0 Start Date: 10/12/24 Status: Ordered Repeat number: 1Start: 10-08-2024 End: 17-45-8484Xbanijkade 10 mg tablet Discontinued 10 MG PO As Directed 20 12October 08, 2024 12:00am December 24, 2024 2:07pm 4 tablets x 3 days, 2 tablets x 3 days, 1 tablet x 3 daysStart: 05-09-2024 End: 65-37-8414rkox 2 tablets by mouth once dailyPrednisone 20 mg tablet Discontinued 40 MG PO Daily 6 May 09, 2024 1:00am December 24, 2024 2:07pmtadalafil 5 mg oral tablet (20 sources)Phosphodiesterase 5 InhibitorStart: 71-74-1738kcgq 1 tablet by mouth once dailyTadalafil 5 mg tablet Active 5 MG PO Daily December 24, 2024 12:00am Complies with drug therapyStart: 01-86-6865ydfg 1 tablet by mouth once dailyCialis 5 mg oral tablet 5 mg = 1 tab(s), Oral, Daily Start Date: 10/23/18 Status: Ordered Repeat number: 1Temazepam (8 sources)BenzodiazepineStart: 41-81-7479aqnocwzwa 30 mg Start Date: 12/25/18 Status: Orderedtemazepam (Restoril) 30 MG capsule Take by mouth Daily as needed ActiveTemazepam Not-Taking/PRNtestosterone cypionate 100 mg/ml injectable solution (16 sources)AndrogenStart: 03-18-9214Elhsbvuypvrq Cypionate 100 mg/mL oil Active 50 MG IM .Q5November 01, 2023 12:00am Complies withdrug therapyStart: 50-58-8237Djqscgwkoyxl Cypionate Active 50 MG IM .Q5November 01, 2023 12:00amStart: 93-23-7662hbuzqclzixux cypionate 100 mg/mL intramuscular solution 50 mg, IntraMuscular, q5day, # 10 mL, Refills(s) 5, Pharmacy: [facility], 172, cm, 10/17/22 13:50:00 EDT, Height/Length Dosing,95, kg, 10/17/22 13:50:00 EDT, Weight Dosing Start Date: 09/17/23 Status: OrderedStart: 10-17-2022 testosterone cypionate 100 mg/mL intramuscular solution 50 mg, IntraMuscular, q5day, # 10 mL, Refills(s) 5, Pharmacy: [facility], 172, cm, 10/17/22 13:50:00 EDT, Height/Length Dosing,95, kg, 10/17/22 13:50:00 EDT, Weight Dosing Start Date: 10/17/22 Status: OrderedStart: 30-68-4490cyatrovmbqxp cypionate 100 mg/mL intramuscular solution 50 mg, IntraMuscular, q5day, # 10 mL, Refills(s) 3, Pharmacy: [facility] #[id number], 172, cm, 10/16/21 14:53:00 EDT, Height/Length Dosing, 95, kg, 10/16/21 14:53:00 EDT, Weight Dosing Start Date: 01/22/22 Status: OrderedStart: 74-46-8136mbdiupzydjjw cypionate 100 mg/mL intramuscular solution 50 mg, IntraMuscular, q7day, # 10 mL, Refills(s) 3, Pharmacy: [facility] #[id number], 172, cm, 10/16/21 14:53:00 EDT, Height/Length Dosing, 95, kg, 10/16/21 14:53:00 EDT, Weight Dosing Start Date: 10/16/21 Status: Ordered Start: 56-50-5538Irwy-Testosterone 50 mg, IntraMuscular Start Date: 09/28/19 Status: Orderedtestosterone cypionate (Depo-Testosterone) 200 MG/ML injection testosterone cypionate 200 mg/mL intramuscular oil ActiveTestosterone Cypionate 50 MG/ML (3 sources)Testosterone Cypionate 50 MG/ML as directed Injection Activetimolol 2.5 mg/ml ophthalmic solution (20 sources)beta-Adrenergic BlockerStart: 02-68-9736ighg 1 drop(s) into the eye(s) onceTimolol Maleate 0.25 % drops Active 1 DROPS OPHTHALMIC Once December 28, 2023 12:00am Complies with drug therapyStart: 57-76-8477ikkl 1 drop(s) into the eye(s) onceTimolol Maleate Active 1 DROPS OPHTHALMIC Once December 28, 2023 12:00amStart: 11-01-2023 End: 83-76-9259utcd 0.5 drop(s) into the eye(s) once dailyTimolol 0.5 % drops Discontinued 1 DROPS EYE-BOTH Daily November 01, 2023 12:00am December 27 11:22amStart: 11-01-2023 End: 27-72-6163lowk 1 drop(s) into the eye(s) once dailyTimolol Discontinued 1 DROPS EYE-BOTH Daily November 01, 2023 12:00am December 28, 2023 11:22amStart: 54-79-7493jnmo 1 drop(s) into the eye(s) once dailyTimolol Active 1 DROPS EYE- BOTH Daily November 01, 2023 12:00amStart: 50-93-8674Gdnomjj GFS 0.5% Gel drop(s), Daily, Refill(s) 0 Start Date: 10/10/20 Status: Ordered Repeat number:1 Start: 75-84-8203Hzpazwl GFS 0.5% Gel drop(s), Daily, Refill(s) 0 Start Date: 10/10/20 Status: OrderedStart: 71-83-3858Owxokae GFS 0.5% Gel drop(s), Daily, Refill(s) 0 Start Date: 10/10/20 Status: Orderedtake 1 drop(s) into the eye(s) once dailytimolol (Timoptic) 0.5 % ophthalmic solution Administer 1 drop into both eyes Daily ActiveTimolol Maleate ActivetiZANidine 4 mg oral capsule (3 sources)Central alpha-2 Adrenergic AgonistStart: 06-96-2979tbGQMmvyjy (Zanaflex) 4 MG capsule 0 Refill(s) 06/10/2024 Activezolpidem tartrate 12.5 mg extended release oral tablet (20 sources)gamma-Aminobutyric Acid-ergic AgonistStart: 49-73-0483Scihmfen Active MG PO November 01, 2023 12:00amStart: 69-74-6373Xtwhynli 12.5 mg tablet,ext release multiphase Active MG PO November 01, 2023 12:00am Complies with drug therapy Completed/Discontinued Medications MedicationDrug Class(es)DatesSig (Normalized)Sig (Original)amoxicillin 875 mg / clavulanate 125 mg oral tablet (6 sources)Penicillin-class AntibacterialStart: 12-28-2023 End: 84-43-3688zkko 1 tablet by mouth every twelve hoursAmoxicillin-Pot Clavulanate 875-125 mg tablet Discontinued 1 TAB PO Every 12 hours 18 01December 28, 2023 12:00am May 09, 2024 10:29amStart: 16-97-8881qnkq 1 tablet by mouth every twelve hoursAmoxicillin-Pot Clavulanate 875-125 MG 1 tablet Orally every 12 hrs for 10 day(s) Mar, Activebenzonatate 100 mg oral capsule (4 sources)Non-narcotic AntitussiveStart: 05-09-2024 End: 23-02-6501fcar 1 capsule by mouth three times daily as needed for cough Benzonatate 100 mg capsule Discontinued 100 MG PO Three times daily as needed for cough May 09, 2024 1:00am December 24, 2024 2:08pm1 ml methylPREDNISolone acetate 40 mg/ml injection (17 sources)CorticosteroidStart: 03-09-2024 End: 76-87-9745pdmztaXDDOLETzqvoo acetate (DEPO-Medrol) injection 40 mgStart: 03-09-2024 End: 55-51-255609 mg, Intra-articular, Once PRN Procedure, Starting on Sat03/09/24 at 1025, For 1 doseStart: 02-17-2024 End: 34-29-9554dtnanjJBSVSTQetxea acetate (DEPO-Medrol) injection 40 mgStart: 02-17-2024 End: 42-27-389737 mg, Intra-articular, Once PRN Procedure, Starting on Sat02/17/24 at 1157, For 1 doseStart: 11-01-2023 End: 05-01-0228fsku 1 tablet by mouth onceMethylprednisolone (Medrol (Jean-Claude)) 4 mg tablets,dose pack Discontinued 0 PO per package directions November 01, 2023 12:00am December 28, 2023 11:19am PO PER PKG DIRStart: 48-54-1618Jojrss 4 MG as directed Orally for 6 days Dec, Not-Taking/PRNTimolol 0.5 % drops (1 source)Start: 11-01-2023 End: 66-27-9187yzuw 0.5 drop(s) into the eye(s) once dailyTimolol 0.5 % drops Discontinued 1 DROPS EYE-BOTH Daily October 31, 2023 11:00pm December 27 10:22amTriamcinolone (3 sources)CorticosteroidStart: 22-02-4564PNZMMEC - 10 mg Dec, 40 mg valsartan 40 mg oral tablet (20 sources)Angiotensin 2 Receptor BlockerStart: 12-28-2023 End: 98-86-9539ajag 2 tablets by mouth once dailyValsartan 40 mg tablet Discontinued 80 MG PO Daily December 28, 2023 11:20am December 28, 2023 11:22amStart: 12-28-2023 End: 24-87-6948eicw 80 mg by mouth once dailyValsartan Discontinued 80 MG PO Daily December 28, 2023 11:20am December 28, 2023 11:22amStart: 12-28-2023 End: 86-12-5223weak 1 tablet by mouth once dailyValsartan 80 mg tablet Discontinued 80 MG PO Daily December 28, 2023 12:00am December 24, 2024 2:08pmStart: 11-01-2023 End: 72-64-2420fkob 1 tablet by mouth once dailyValsartan 40 mg tablet Discontinued 40 MG PO Daily November 01, 2023 12:00am December 28, 2023 11: 22amStart: 10-10-2020 End: 40-75-8285fkqt 1 tablet by mouth once dailyValsartan 80 mg tablet Active 80 MG PO Daily December 28, 2023 12:00am Complies with drug therapytake 1 tablet by mouth every twelve hoursValsartan 40 MG 1 tablet Orally Twice a day Active Problems Active Problems Problem ClassificationProblemDateDocumented DateEpisodic/ChronicAnxiety disorders (1 source)Anxiety disorder, unspecified; 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: [Anxiety disorder, unspecified]Onset: 77-38-9358CeiaxlxTijbktx kidney disease (3 sources)Chronic renal failure; 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: [Chronic kidney disease, unspecified]Onset: 075291-47-7242NwbyauyAbpzibj obstructive pulmonary disease and bronchiectasis (5 sources)Bronchitis; 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: [Bronchitis, not specified as acute or chronic]60-82-4808LaczwfvvRianfafiavh and hemorrhagic disorders (1 source)Thrombocytopenia, unspecified; 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: [THROMBOCYTOPENIA UNSPECIFIED]Onset: 11-92-4966BbfnfeeN Codes: Natural/environment (2 sources)Bitten or stung by nonvenomous insect and other nonvenomous arthropods, initial encounter; 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: [Insect bites]75-73-3030Mwrsehng Esophageal disorders (5 sources)Laryngopharyngeal reflux; 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: [Gastro-esophageal reflux disease without esophagitis]Onset: 540664-33-6823PwrkcuqAgvndwixr hypertension (20 sources)Essential (primary) hypertension; 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: [Essential hypertension]Onset: 328321-15-7227IqggtuwNxgdsptpadvto symptoms and ill- defined conditions (20 sources)Delay when starting to pass urine; 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: [Microscopic hematuria]Onset: 597406-88-2734RrdbtxfnHtmhwoir (2 sources)Glaucoma; 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: [Unspecified glaucoma]Onset: 07-01-2024 86-53-7914ZwtmucxPkhtfkpnosx of prostate (20 sources)Benign prostatic hypertrophy with outflow obstruction; 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: [Benign prostatic hyperplasia with lower urinary tract symptoms]Onset: 36-36-3683AaemlfnZqxqnkfugdgzc mental health disorders (2 sources)Chronic insomnia; 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: [Psychophysiologic insomnia] 29-12-3842GrrmzzeCovutcuvhifbzf (15 sources)Arthritis of left glenohumeral joint; 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: [Primary osteoarthritis, left shoulder]Onset: 546729-87-1557QowolqwSfspv circulatory disease (1 source)Elevated blood-pressure reading, without diagnosis of hypertension EpisodicOther diseases of kidney and ureters (1 source)Urinary tract obstruction; 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: [Other obstructive and reflux uropathy]Onset: 42-09-5416UnoizkkfQgeir endocrine disorders (5 sources)Testicular hypofunction; 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: [Testicular hypofunction] Onset: 16-63-3841TekvknrWjnry endocrine disorders (20 sources)Male hypogonadism; 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: [Testicular hypofunction]Onset: 324870-98-1647HjbgnsyHfmlf endocrine disorders (6 sources)Testicular hypofunction; 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: [TESTICULAR HYPOFUNCTION] Onset: 48-56-4311YshlennJwncs hematologic conditions (1 source)Secondary polycythemia; 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: [Secondary polycythemia]Onset: 71-82-4564PsvdrasbBntah lower respiratory disease (2 sources)Apnea; 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: [Apnea, not elsewhere classified]12-24-2024 EpisodicOther male genital disorders (5 sources)Kpobcblda06-82-0553HqequykMmydc male genital disorders (16 sources)Male erectile dysfunction, unspecified; 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: [Impotence of organic origin]Onset: 740765-92-5737XvkckwbPnfvy non-traumatic joint disorders (8 sources)Disorder of shoulder; 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: [Other specified joint disorders, left shoulder]68-64-4254AvrwrjvsSysiv non-traumatic joint disorders (4 sources)Pain in left shoulder; 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: [Pain in joint, shoulder region] 75-56-5106UpocxqbcZcyzh nutritional; endocrine; and metabolic disorders (20 sources)Body mass index 30+ - obesity; 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: [Body mass index (BMI) 30.0-30.9, adult]Onset: 723569-14-3507QpnruutUcmbi upper respiratory disease (18 sources)Seasonal allergic rhinitis; 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: [Other seasonal allergic rhinitis]Onset: 370547-33-9097JsvowavMnmap upper respiratory disease (3 sources)Seasonal allergy; Translations: [Other seasonal allergic rhinitis] 97-17-3526AlxtrcaFutvo upper respiratory infections (3 sources)Sinusitis; Translations: [Chronic sinusitis, unspecified]Onset: 622538-85-3616RzyivdzFfsri upper respiratory infections (9 sources)Acute pharyngitis, unspecified; Translations: [Acute pansinusitis, unspecified]EpisodicPoisoning by nonmedicinal substances (8 sources)Bee sting; Translations: [Toxic effect of venom of bees, accidental (unintentional), initial encounter]98-31-9043QiindkgyQlltlvwn codes; unclassified (5 sources)Sleep zypga45-82-2778VdudamtKxudutco codes; unclassified (6 sources)Obstructive sleep apnea syndrome; Translations: [Obstructive sleep apnea (adult) (pediatric)]Onset: 050727-16-3386UifeqhbGofoqbuz codes; unclassified (1 source)Sleep apnea, unspecified; Translations: [Sleep apnea, unspecified] Onset: 71-65-2943WnhyevhBkcspdow codes; unclassified (1 source)Obstructive sleep apnea (adult) (pediatric); Translations: [Obstructive sleep apnea (adult) (pediatric)]Onset: 03-18-6587NwuqrloQpuvfgqv codes; unclassified (7 sources)Insomnia; Translations: [Insomnia, unspecified]Onset: 07-01-2024 67-19-7569MmlnbqdqWyvnjokj codes; unclassified (1 source)Insomnia, unspecified; Translations: [Insomnia, unspecified]Onset: 85-07-0997TdcfbrlpJpolprjib-related disorders (2 sources)Hypnotic dependence; Translations: [Sedative, hypnotic or anxiolytic dependence, uncomplicated]48-90-9769HwzkzshKrvvxet disorders (1 source)Hypothyroidism, unspecified; Translations: [HYPOTHYROIDISM UNSPECIFIED]Onset: 89-03-3334PgdprcuYpkgicuudmii (5 sources)Asymptomatic microscopic muhgetgyx85-97-1215Zbblidmtowpj (5 sources)Drug therapy wvtqewc89-54-4778 Past or Other Problems Problem ClassificationProblemDateDocumented DateEpisodic/Chronic Administrative/social admission (16 sources)First encounter by subject; Translations: [Persons encountering health services in other specified circumstances]Onset: EpisodicOther aftercare (16 sources)Drug therapy finding; Translations: [assisted (current) use of 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]Onset: 898296-15-1474TeejmkohXcimg hematologic conditions (16 sources)Erythrocytosis; Translations: [Secondary polycythemia]Onset: 854084-36-9038YzesoaspWvkfv nervous system disorders (14 sources)Gordon's palsy; 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]Onset: 01-09-2024 87-47-2235QgxmljzdSsfru screening for suspected conditions (not mental disorders or infectious disease) (20 sources)Patient encounter status; Translations: [Encounter for screening for lipoid disorders]Onset: 454509-31-6137MaumjdtbKoqymspxdyum (1 source)Contact with and (suspected) exposure to covid-19 Z20.822 Results Test NameValueInterpretationReference RangeFacilityOutside Recordson 02-08-2025 Outside [id number]#1.00OTGTIFFNormal [facility] HospitalAmbulatory Visit Summaryon 15-75-1532Sfjufawffz Visit Summary Ambulatory Visit Summary LAMONT GOVEA [...] In 1 year Where: [address] [facility] [place] [address] Medications What How Much When [...] Your health care prov (more content not included)...[facility] 66-59-6323KekhknsuyDzbtllwpy From: Lorri Metz To: EU - Administrative; Sent: 10/12/2024 13:45:33 EDT Show up: 06/30/2025 13:44:00 EDT Subject: Ambulatory Reminder Due Date/Time: 10/12/2025 13:43:00 EDT Reminder/Recall Patient was seeing Ewa Richmond. He is needing a 1 yr f/u w/ PSA which is due around 10/12/2025. Please get him scheduled.[facility] Urology Office/Clinic Noteon 05-88-0916Bgdyqip Office/Clinic NoteUrology Office/Clinic Note Chief Complaint 1 [...] E&M of Est. Patient Moderate 30-39 Min 99225 Hemoglobin and Hematocrit Hepatic Function Panel Lipid Panel PSA Screen, Total Testosterone Level Total Urnls Dip Stick Auto w/o Microscopy POC 00373 2. BPH with urinary obstruction (N40.1: Benign [...] E&M of Est. Patient Moderate 30-39 Min 64438 Other obstructive and reflux uropathy (N13.8: Other obstructive and reflux uropathy) Follow-up With When Contact Information MAXIMILIANO MAIER, EWA Zapien, URL In 1 year [address] [place] [address] Additional Instructions: Patient Education [...] Negative (10/12/24 1 (more content not included)... [facility] HospitalComment on above:Result Comment: Electronically Signed By: EWA RICHMOND PA-Cbr\Date and Time Signed: 10/12/2512:49 EDTLab - Other Lab Resultson 64-91-8216Dld - Other Lab Results [id number]#1.00OT[facility] Outside Recordson 07-92-0275Tbzcgeb Records [id number]#1.00OTUpper [facility] Outside Recordson 76-38-6150Dkgxeir Records [id number]#1.00OTUpper Valley Medical CenterNo Panel Informationon 48-40-5306MhwmaBrii Oconnor NP 03/09/2024 10:34 AM L Inj/Asp: [...] and draped in the usual sterile fashion. [facility] Panel Informationon 16-26-4262PlaxwBrii Oconnor NP 02/17/2024 9:46 PM L Inj/Asp: [...] and draped in the usual sterile fashion. [facility] Shoulder - left 2 Viewson 46-90-7417Ajfmgbz Result: Xrays AP, axillary and y-scapula of the left shoulder performed on February 17, 2024 demonstrates bone on bone glenohumeral joint. Narrowing of the ac joint in addition. No fractures noted. Humerus centered within the glenoid. There is abnormal glenoid morphology. Impression Advanced arthritis of the glenohumeral joint. Brii Oconnor [facility] HealthcareRadiology Study observation (narrative)[facility] Shoulder - left 2 ViewsOrdered By: Narciso Zarate on 02-17-2024 [facility] Work Phone: Ambulatory Visit Summaryon 57-55-2959Kotpltqtsc Visit SummaryAmbulatory Visit Summary LAMONT GOVEA :1945 [...] Every 5 days Male hypogonadism Pickup at [facility] Unchanged tadalafil (Cialis 5 mg oral tablet) 1 Tablets By Mouth Every day Unchanged timolol ophthalmic (Timolol GFS 0.5% Gel) Every day Unchanged valsartan (valsartan 80 mg Tab) By Mouth Every day Unchanged zolpidem (Ambien CR 12.5 mg Tab-ER) 1 Tablets By Mouth Once a day (at bedtime) as needed for for sleep Pharmacy Information [facility]: [address] [place] [id number] [phone] What When Comments Stop Taking aspirin Stop [...] you for choosing us for your care. [facility] HospitalU[facility] Office/Clinic Noteon 88-75-3347Ujxcahe Office/Clinic NoteUrology Office/Clinic Note Chief Complaint 1yr [...] Contact Information MAXIMILIANO MAIER, EWA Zapien, URL [address] [facility] [place] [address] [phone] Additional Instructions: 1 year w/ PSA, LFTs, [...] 10/15/2023 Family History Family (more content not included)...[facility] HospitalComment on above:Result Comment: Electronically Signed By: EWA RICHMOND PA-C\.br\Date and Time Signed: 10/14/2412:49 EDT\.br\Electronically Co-Signed By: Chhaya Mason\.br\Date and Time Co-Signed: 10/15/23 13:43 EDTCOVID + FLU Quick Testingon 34-83-7463DQJD-CoV-2 (COVID-19) RNA STEFF+probe Ql (Unsp spec)NegativeIMScouting [employer] Other COVID + FLU Quick TestingNegativeChicago [employer] Other Quick Strepon 03-14-2023S. pyogenes Org specific cx Ql (Throat)NegativeAircare Other quick StrepInSite [employer] Other TESTOSTERONE, TOTALon 40-72-2353Fhsegkhuapxi [Mass/Vol]749 ng/iBNgiioo020-049CtwMercy Health St. Joseph Warren HospitalComment on above:Result Comment: Adult male reference interval is based on a population of healthy nonobese males (BMI <30) between 19 and 39 years old. Travison, et.al. JCEM 2017,102;1233-8257. PMID: [id number].Performed By: #### TESTTOT #### [facility] [address] [place] [address] Dr. Lazaro SamTESTOSTERONE, TOTALon 31-07-3712Dpepmgfvgreh [Mass/Vol]740 ng/dL Xmrkdt927-483SnpMercy Health St. Joseph Warren HospitalComment on above:Result Comment: Adult male reference interval is based on a population of healthy nonobese males (BMI <30) between 19 and 39 years old. Travjackson, et.al. JCEM 2017,102;2478-0914. PMID: [id number].Performed By: #### TESTTOT #### [facility] [address] [place] [address] Dr. Lazaro Torres AUTO DIFFon [id number] #0.0 103/ulNormal0.0-0.1The [facility] HospitalComment on above:Performed By: #### CBC #### [facility] [address] [place] [address] Dr. Lazaro SamBasophils/100 WBC (Bld)0.4 %Normal0.2-2.0The [facility] Comment on above:Performed By: #### CBC #### [facility] [address] [place] [address] Dr. Willis ChangEShey #0.1 103/ulNormal0.0-0.7The [facility] HospitalComment on above: Performed By: #### CBC #### [facility] [address] [place] [address] Dr. Lazaro Brayosinophils/100 WBC (Bld)0.6 %Critically low0.9-7.0The [facility] HospitalComment on above:Performed By: #### CBC #### [facility] [address] [place] [address] Dr. Lazaro Brayrythrocyte distribution width (RBC) [Ratio]13.7 %Fnkkxd80.0-15.0 The [facility] HospitalComment on above:Performed By: #### CBC #### [facility] [address] [place] [address] Dr. Lazaro SamHematocrit (Bld) [Volume fraction]52.4 %Hhtrkv19.0-54.0The [facility] HospitalComment on above:Performed By: #### CBC #### [facility] [address] [place] [address] Dr. Lazaro SamHemoglobin (Bld) [Mass/Vol]17.3 g/uQXftzwb88.0-18.0The [facility] HospitalComment on above:Performed By: #### CBC #### [facility] [address] [address] [address] Lazaro Suarez #0.03 10e3/ulNormal0.00-0.03The [facility] HospitalComment on above:Performed By: #### CBC #### [facility] [address] [place] [address] Dr. Lazaro Suarez %0.4 %Normal0.0-0.5The [facility] HospitalComment on above: Performed By: #### CBC #### [facility] [address] [place] [address] Dr. Lazaro FunesDeng #1.5 103/ulNormal1.2-3.8The [facility] HospitalComment on above:Performed By: #### CBC #### [facility] [address] [place] [address] Dr. Lazaro Funeshocytes/100 WBC (Bld)18.7 %Critically low20.5-60.0The [facility] HospitalComtrinity health [facility] on above:Performed By: #### CBC #### [facility] [address] [place] [address] Dr. Lazaro VarnerUAL DIFF REQNONormalThe [facility] HospitalComment on above: Performed By: #### CBC #### [facility] [address] [place] [address] Dr. Lazaro Coyne (RBC) [Entitic mass]29.7 dnUppkdf57.9-34.0The [facility] HospitalComment on above:Performed By: #### CBC #### [facility] [address] [place] [address] Dr. Lazaro Coyne (RBC) [Mass/Vol]33.0 g/sPLqckev14.9-35.2The [facility] HospitalComment on above:Performed By: #### CBC #### [facility] [address] [place] [address] Dr. Lazaro Coyne (RBC) [Entitic vol]90.0 yDAgvsxw86.0-94.0The [facility] HospitalComment on above:Performed By: #### CBC #### [facility] [address] [address] [address] Lazaro Britton #0.6 103/ulNormal0.3-0.8The [facility] HospitalComment on above:Performed By: #### CBC #### [facility] [address] [address] [address] Lazaro Diasocytes/100 WBC (Bld)7.7 %Normal1.7-12.0The [facility] Comment on above:Performed By: #### CBC #### [facility] [address] [place] [address] Dr. Lazaro Tubbs #5.8 103/ulNormal1.4-6.5The [facility] HospitalComment on above:Performed By: #### CBC #### [facility] [address] [place] [address] Dr. Lazaro Porrasutrophils/100 WBC (Bld)72.2 %Njcyaz44.0-75.0The [facility] HospitalComment on above:Performed By: #### CBC #### [facility] [address] [place] [address] Dr. Lazaro Rossi mean volume (Bld) [Entitic vol]9.1 fLCritically low 9.5-13.5The [facility] HospitalComment on above:Performed By: #### CBC #### [facility] [address] [place] [address] Dr. Lazaro SamPLT162 103/jgOmjnyd616-740Vak [facility] HospitalComment on above: Performed By: #### CBC #### [facility] [address] [place] [address] Dr. Lazaro SamRBC5.82 106/ulNormal4.70-6.10The [facility] HospitalComment on above:Performed By: #### CBC #### [facility] [address] [place] [address] Dr. Lazaro SamWBC8.1 103/ulNormal4.0-11.0The [facility] HospitalComment on above: Performed By: #### CBC #### [facility] [address] [address] [address] Lazaro Taylor 14(COMP METB)on 18-39-0016Rquexob [Mass/Vol]3.7 g/dLNormal 3.4-5.0The [facility] HospitalComment on above:Performed By: #### CMP, TSH #### [facility] [address] [address] [address] Lazaro SamAlbumin/Globulin [Mass ratio]0.9 {ratio}NormalThe [facility] HospitalComment on above:Performed By: #### CMP, TSH #### [facility] [address] [address] [address] Lazaro Briseno [Catalytic activity/Vol]72 U/SBbdppq48-349Eco [facility] HospitalComment on above:Performed By: #### CMP, TSH #### [facility] [address] [place] [address] Dr. Lazaro Nicole [Catalytic activity/Vol]42 U/RQlookc12-15Cxv [facility] HospitalComment on above:Performed By: #### CMP, TSH #### [facility] [address] [address] [address] Lazaro Barth gap [Moles/Vol]13.4 mmol/LNormalThe [facility] Comment on above:Performed By: #### CMP, TSH #### [facility] [address] [address] [address] Lazaro SamAST [Catalytic activity/Vol]22 U/KEtubwe33-86Bti [facility] HospitalComment on above:Performed By: #### CMP, TSH #### [facility] [address] [address] [address] Lazaro SamBilirubin [Mass/Vol]0.6 mg/dLNormal0.2-1.0The [facility] Comment on above:Performed By: #### CMP, TSH #### [facility] [address] [address] [address] Lazaro SamCalcium [Mass/Vol]8.8 mg/dLNormal8.5-10.1The [facility] Comment on above:Performed By: #### CMP, TSH #### [facility] [address] [address] [address] Lazaro SamChloride [Moles/Vol]104 mmol/XAeyqsg50-329Wwe [facility] Comment on above:Performed By: #### CMP, TSH #### [facility] [address] [address] [address] Lazaro SamCO2 [Moles/Vol]26.5 mmol/WEnpjmd48.0-32.0The [facility] Comment on above:Performed By: #### CMP, TSH #### [facility] [address] [address] [address] Lazaro SamCreatinine [Mass/Vol]1.30 mg/dLNormal0.70-1.30The [facility] HospitalComment on above:Performed By: #### CMP, TSH #### [facility] [address] [address] [address] Lazaro BrayGFR-AF AFGHAN>60Normal>=60The [facility] HospitalComment on above:Performed By: #### CMP, TSH #### [facility] [address] [address] [address] Lazaro BrayGFR-NON AF CBEAXILC58 mL/min/1.19d6Obnxhkblsn low>=60The [facility] HospitalComment on above:Performed By: #### CMP, TSH #### [facility] [address] [address] [address] Lazaro SamGlobulin (S) [Mass/Vol]3.9 g/dLNormalThe [facility] HospitalComment on above:Performed By: #### CMP, TSH #### [facility] [address] [address] [address] Lazaro SamGlucose [Mass/Vol]117 mg/dLCritically ojzz98-370Hcw [facility] HospitalComment on above:Performed By: #### CMP, TSH #### [facility] [address] [address] [address] Lazaro SamPotassium [Moles/Vol]3.9 mmol/LNormal3.5-5.1The [facility] Comment on above:Performed By: #### CMP, TSH #### [facility] [address] [place] [address] Dr. Lazaro SamProtein [Mass/Vol]7.6 g/dLNormal6.4-8.2[facility] Comment on above:Performed By: #### CMP, TSH #### [facility] [address] [place] [address] Dr. Lazaro SamSodium [Moles/Vol]140 mmol/XLhtcex650-584OesMercy Health St[facility] Comment on above:Performed By: #### CMP, TSH #### [facility] [address] [place] [address] Dr. Lazaro Trejo nitrogen [Mass/Vol]23.0 mg/dLCritically high7.0-18.0[facility] HospitalComment on above:Performed By: #### CMP, TSH #### [facility] [address] [place] [address] Dr. Lazaro Trejo nitrogen/Creatinine [Mass ratio]17.7 mg/mgNoUniversity Hospitals St. John Medical CenterComment on above:Performed By: #### CMP, TSH #### [facility] [address] [place] [address] Dr. Lazaro Carr [id number] [Mass/Vol]7.70 ug/dLNormal4.50-12.10The [facility] HospitalComment on above:Performed By: #### T4 #### [facility] [address] [place] [address] Dr. Lazaro Hernadez 90-57-0256RYX7.079 uIU/mLNormal0.358-3.740[facility] HospitalComment on above:Performed By: #### CMP, TSH #### [facility] [address] [place] [address] Dr. Lazaro Vu [facility] BELOWUC HealthComment on above: Result Comment: <0.34 UIU/ml HYPERTHYROID 0.34-5.60 UIU/ml EUTHYROID >5.60 UIU/ml HYPOTHYROIDPerformed By: #### CMP, TSH #### [facility] [address] [address] [address] Lazaro SamTESTOSTERONE, FREE,DIRECT, TOTALon 14-99-4753Xrco Testosterone(Direct)9.4 pg/mLNormal6.6-18.1The [facility] Hospitalment on above:Result Comment: Performed at: BNPerformed By: #### TESTFRD #### [facility] [address] [place] [address] Dr. Lazaro SamTestosterone [Mass/Vol]328 ng/kCAayhgj442-411Oql [facility] HospitalComment on above:Result Comment: Adult male reference interval is based on a population of healthy nonobese males (BMI <30) between 19 and 39 years old. martha Roman.al. JCEM 2017,102;0281-1707. PMID: [id number]. Performed at: CBPerformed By: #### TESTFRD #### [facility] [address] [place] [address] Dr. Lazaro SamCNOVSPon 73-57-8296UKCNAUUcvlg (SP) Office (HEMACL) LAMONT GOVEA ([id number]) 1945 M Date Time Provider Department 06/19/18 2:30 PM NARCISO MARINELLI During your visit today, we recorded the following information about you: Temperature Pulse Respiration Blood pressure 98 degrees 74/minute 18/minute 186/97 Weight Height 93.6 kg 1.727 m Narciso Marienlli MD 06/19/2018 2:18 PM Signed HPI Lamont [...] week. - CBC + DIFF (FOR REMOTE [facility] USE) Narciso Marinelli MD Referring Provider: RUPERTO BLAS [[id number]] Allergies As of Date: 06/19/2018 (No Known Allergies) Date Reviewed: 06/19/2018 Reviewed by: Melvi Valle - Fully Assessed Reason for Visit: polycythemia [Other] Cmt: follow up Primary Visit Diagnosis:Erythrocytosis [D75.1] Order(s):CBC + DIFF (FOR REMOTE [facility] USE) [SQRCBCDF] Order #: [id number] STANDING Disposition: Return in about 1 year [...] Encounter Status:Closed by NARCISO MARINELLI MD on 06/19/18[facility] Hospitalon 55-94-3360Pztdqkv mass concHNO ID: [id number] Author: Narciso Marinelli Service: ? Author Type: [...] week. - CBC + DIFF (FOR REMOTE [facility] USE) Narciso Marinelli MDNormalCParkview HealthRemote CBCDIF (for [facility] use only)on 00-32-8026Skn Baso<0.45Jiekkh9.00-0.10[facility] CenterAbs Barton 1.02 k/uLHigh0.00-0.86[facility] Medical CenterAbs Neut5.04 k/uLNormal1.45-7.50 [facility] Medical CenterBasophils/100 WBC (Bld)0.2 %NormalUniversity Hospitals Samaritan Medical CenterEosinophils #/vol (Bld)0.40 10*3/uLNormal0.00-0.45[facility] Medical CenterEosinophils/100 WBC (Bld)4.5 %NormalUniversity Hospitals Samaritan Medical Center Erythrocyte distribution width Ratio (RBC)13.3 %Scdxol90.5-15.0[facility] Medical CenterHematocrit Volume Fraction (Bld)48.8 %Yzfpbu76.0-51.0[facility] Medical CenterHemoglobin mass conc (Bld)16.8 g/eBWoygkd80.0-17.0[facility] Medical CenterLymphocytes #/vol (Bld)2.43 10*3/uLNormal1.00-4.00[facility] Medical CenterLymphocytes/100 WBC (Bld)27.3 %NormalSelect Medical Specialty Hospital [facility] Board[facility], IncH Entitic mass (RBC)30.5 zETpsdmu05.0-34.0[facility], IncHC mass conc (RBC)34.4 g/eJHsfjlf40.5-36.0[facility], IncV Entitic volume (RBC) 88.6 bRDolwpu55.0-100.0[facility] Medical CenterMonocytes/100 WBC (Bld)11.4 % NormalUniversity Hospitals Samaritan Medical CenterNeutrophils/100 WBC (Bld)56.6 %NormalUniversity Hospitals Samaritan Medical CenterPlatelet mean volume Entitic volume (Bld)9.6 fLNormal9.0-12.7 [facility] Medical CenterPlatelets #/vol (Bld)152 10*3/jZYjkvxi049-512Wnbcyvakf Clinic Clemansfield hospitalRBC #/vol (Bld)5.51 10*6/uLNormal4.20-6.00[facility] Medical CenterWBC #/vol (Bld)8.91 10*3/uLNormal3.70-11.00[facility] BCR-ABL Qualitativeon 12-16-5691ETJ-ABL Qualitative(NOTE)[facility] on above:Result Comment: Please refer to [facility] Surgical Pathology report, By: #### CALR, BCRQL #### [facility] [employer] [address] [place], [place] [address] CALR Exon 9 Mutationon [id number] Result/InterpDuplicate request NormalMarion Hospital on above:Result Comment: Account Credited SEE MPNP. DMCKNIGHT 05 30 2018Performed By: #### CALR, BCRQL #### [facility] [address] [id number] SDNB Reviewed byDuplicate requestMedina Hospital Comment on above:Result Comment: Account Credited SEE MPNP. DMCKNIGHT 05 30 2018Performed By: #### CALR, BCRQL #### [facility] [address] [address] WLAY Specimen TypeDuplicate requestNoWVUMedicine Barnesville Hospital Comment on above:Result Comment: Account Credited SEE MPNP. DMCKNIGHT 3 2018Performed By: #### CALR, BCRQL #### [facility] [address] [address] VIPDti 02-46-7174IRMBWwaeeq Text Dear Lamont Govea: How to activate your [facility] Node Management Account 1. Visit the Node Management Signup page at [email or web address] 2. Identify yourself using your one-time use activation code: [id number] 3. Follow the on-screen prompts to choose [...] information on the Identify Yourself Form at [email or web address] , click Next. Create your login and password, choose a Node Management ID and password that will be easy for you to use, but impossible for anyone else to guess. Pick a security question that will assist you in the event you forget your password the next time you log-on. If you have difficulty activating your account, please call our [employer] Management helpline at [phone] or toll free at . We hope you enjoy using [employer] Management! Kindest Regards, [facility] Node Management TeamNoWVUMedicine Barnesville HospitalCNOVSPon 05-29-2018 CNOVSPVisit (SP) Office (HEMACL) LAMONT GOVEA ([id number]) 1945 M Date Time Provider Department 05/29/18 [...] viscosity is hematocrit with the risk of ND, CVA, Budd Chiari, etc all increased proportionately [...] ABS GRAN CT + CBC (FOR REMOTE [facility] USE) - ERYTHROPOIETIN/EPO - HEPATIC FUNCTION [...] Narciso Marinelli MD Referring Provider: MURALI CHAVEZ [[id number]] Allergies As of Date: 05/29/2018 (No Known Allergies) Date Reviewed: 05/29/2018 Reviewed by: Melvi Valle - Fully Assessed Reason for Visit: high HGB [Other] Cmt: new patient consultation ref. Dr. Chavez Primary Visit Diagnosis:Polycythemia [D75.1] Other Visit Diagnosis:Erythrocytosis [D75.1] Order(s):JAK2 V617F MUTATION BLOOD [SQJAK2] Order #: [id number] FUTURE BCR-ABL QUALITATIVE MULTIPLEX RT-PCR [SQBCRQL] Order #: [id number] FUTURE CALR EXON 9 MUTATION ANALYSIS BLOOD [SQCALR] Order #: [id number] FUTURE MPL MUTATION ANALYSIS BLOOD [SQMPL] Order #: [id number] FUTURE ABS GRAN CT + CBC (FOR REMOTE [facility] USE) [SQRAGCBC] Order #: [id number] FUTURE ERYTHROPOIETIN/EPO [SQEPO] Order #: [id number] FUTURE HEPATIC FUNCTION PNL [SQHFP] Order #: [id number] FUTURE TESTOSTERONE TOTAL [SQTESTO] Order #: [id number] FUTURE Disposition: Return in about 3 weeks [...] Encounter Status:Closed by NARCISO MARINELLI MD on 05/29/18NormalCParkview HealthEPOon 85-79-2865RCS5.8 mIU/mLNormal2.6-18.5CParkview Health Comment on above:Result Comment: Test analyzed by the Gemmyo DxI method. Performed By: #### JAK2, EPO, HFP #### [facility] [employer] [address] [address] Kggoern Functn Panelon 37-29-0633Ohjcrjm mass conc4.6 g/dLNormal 3.9-4.9CParkview HealthComment on above:Performed By: #### JAK2, EPO, HFP #### [facility] [employer] [address] [address] UUD enzyme act/vol60 U/RSyusee78-133CmrylyxsvUniversity Hospitals [facility]ar[facility] Medical Center Comment on above:Performed By: #### JAK2, EPO, HFP #### [facility] [employer] [address] [address] QWR enzyme act/vol36 U/NKpcwhv07-76PmpxnfbkeMarion Hospital on above:Performed By: #### JAK2, EPO, HFP #### [facility] [employer] [address] [id number] NPM enzyme act/vol29 U/WCvlswv66-05GtkktfbfwMarion Hospital on above:Performed By: #### JAK2, EPO, HFP #### [facility] [employer] [address] [address] Ceyjtsocp mass conc0.5 mg/dLNormal0.2-1.3CParkview Health Comment on above:Performed By: #### JAK2, EPO, HFP #### [facility] [employer] [address] [address] Igdvihbls,Conjugated<0.2Normal<0.2CGrand Lake Joint Township District [facility] Hospital on above:Performed By: #### JAK2, EPO, HFP #### [address] [address] [address] Ebmhxkd mass conc7.6 g/dLNormal6.3-8.0[facility] Comment on above:Performed By: #### JAK2, EPO, HFP #### [place] [address] [address] ZKH0 V617F Mutationon 52-89-1555JEC0 V617F InterpDuplicate request NormalMarion Hospital on above:Result Comment: Account Credited SEE MPNP. CK 2019Performed By: #### JAK2, EPO, HFP #### [place] [address] KAK4 V617F Spec TypeDuplicate requestNoGeorgetown Behavioral Hospital on above:Result Comment: Account Credited SEE MPNP. DMCK 2019Performed By: #### JAK2, EPO, HFP #### [place] [address] Tiolewwsi Path RevDuplicate requestNoWVUMedicine Barnesville Hospital Comment on above:Result Comment: Account Credited SEE MPNP. CK 2019Performed By: #### JAK2, EPO, HFP #### [address] [place] [address] DQF Mutationon [id number] Mutation InterpDuplicate requestNormal [facility] on above:Result Comment: Account Credited SEE MPNP. CK 2019Performed By: #### MPL #### [place] [address] Rbpsnrumqut Neopl Pnl Bloodon 59-11-6603Hdtql Neopl Pnl Bld(NOTE) [facility] on above:Result Comment: Please refer to [facility] Surgical Pathology report, .Performed By: #### MPNP ####[facility] [address] [place], [place] [id number] 87-98-7064Vdebavd mass concHNO ID: [id number] Author: Narciso Marinelli Service: (none) Author Type: [...] viscosity is hematocrit with the risk of ND, CVA, Budd Chiari, etc all increased proportionately [...] PNL - TESTOSTERONE TOTAL Narciso E Fanning, MDNormalCParkview HealthRemote Abs Gran + CBC (for [facility] use only)on 46-56-6500Rawon Gran Count3.85 k/uLNormal1.45-7.50[facility] Medical CenterErythrocyte distribution width Ratio (RBC)13.6 %Qxiham20.5-15.0 [facility] Medical CenterHematocrit Volume Fraction (Bld)49.6 %Dsavnp61.0-51.0 [facility] Medical CenterHemoglobin mass conc (Bld)17.1 g/sDVflp87.0-17.0 [facility], IncH Entitic mass (RBC)30.5 iKUhttow93.0-34.0[facility], IncHC mass conc (RBC)34.5 g/vDIndjff67.5-36.0[facility], IncV Entitic volume (RBC)88.6 lGQkaous75.0-100.0[facility] Medical CenterPlatelet mean volume Entitic volume (Bld)9.9 fLNormal9.0-12.7CParkview HealthPlatelets #/vol (Bld)146 10*3/iMQwz729-248NczwgwfozUniversity Hospitals Samaritan Medical CenterRBC #/vol (Bld)5.60 10*6/uLNormal4.20-6.00[facility] Medical CenterWBC #/vol (Bld)6.86 10*3/uLNormal3.70-11.00[facility] Medical CenterSURGICAL PATHOLOGYon 73-12-0304PUQOJDFS PATHOLOGYPROCEDURE REPORT Specimen originated from [facility] Specimen #: [id number] Submitting Physician: NARCISO MARINELLI MD SPECIMEN SUBMITTED [...] this sample, and cDNA prepared by reverse online program coordinator. Multiplex RT-PCR studies were performed using fluorescently [...] developed and its performance characteristics determined by [facility]'s [facility] Pathology and Laboratory Medicine [place] ([facility]). It has not been cleared or approved by the FDA. -PLND is regulated under CLIA as qualified to perform high-complexity testing. This test is used for clinical purposes. It should not be regarded as investigational or for research. As Reviewed by: Narciso Luong M.D., Ph. D. [facility]/brynn 06/10/2018 Procedure Pathologist: Narciso Luong M.D. Electronic [...] sequencing was performed on the Illumina instrument ([place], [place]). A customized bioinformatic pipeline was used to align the sequencing reads to the reference human genome (GRCh37/hg19). Benign common polymorphisms are not reported. Limitations: Sequence changes outside the analyzed regions, including intronic, noncoding, and splice-site variants, will not be identified by this test. The lower limit of detection of this assay is approximately 1% allele proportion for the JAK2 Egq430Eun single nucleotide variant and approximately 5% allele [...] developed and its performance characteristics determined by [facility]'s [facility] Pathology and Laboratory Medicine [place] ([facility]). It has not been cleared or approved by the FDA. [facility] is regulated under CLIA as qualified to perform high-complexity testing. This test is used for clinical purposes. It should not be regarded as investigational or for research. As Reviewed by: Quin Hill M.D. Ph.D. HENRIK/ap [id number] References: Temi DA, Syd A, Davidertawny R, [...] Receipt: 05/30/2018 Submitted: NARCISO MARINELLI MD Location: [facility] Diagnostic interpretation performed at [facility], [address] [place] [address].NormalUniversity Hospitals Samaritan Medical CenterTestosteroneon 05-29-2018 Testosterone mass hqai453 ng/fXVhshgs410-261RdjdzpfwrGrand Lake Joint Township [facility] on above:Result Comment: A testosterone level in the 193-320 ng/dL range with associated clinical symptoms is considered low and may indicate hypogonadism (from NEJ 2010 363:123-135). Results >320 ng/dL are considered normal.Performed By: #### TESTO ####[facility] [address], [place] [phone] Vital Signs Date TimeVital SignValuePerforming CzqcjdjejZjaeetdw30-64-0905 14:11-0400Body .72 [facility]on House DO Work Phone: 1(085)[address] [place], [place] 2982709-25-2025 14:11-0400 Body mass index (BMI) [Ratio]29.6 kg/v4Hjsegkv House DO Work Phone: 1(199)[address] [place], [place] 2982709-25-2025 14:11-0400 Body aelxhp71.45 kgLexington Shriners Hospitalsamson House DO Work Phone: 1(379)[address] [place], [place] 2982709-25-2025 14:11-0400 Diastolic blood nkldkezs54 mm[Hg]Frederick House DO Work Phone: 1(759)[address] [place], [place] 2982709-25-2025 14:11-0400 Heart rate78 /minSheilarsamson House DO Work Phone: 1(447)[address] [place], [place] 2982709-25-2025 14:11-0400 SaO2% (BldA) [Mass fraction]96 %Frederick House DO Work Phone: 1(646)[address] [place], [place] 2982709-25-2025 14:11-0400 Systolic blood mm[Hg]Frederick House DO Work Phone: 1(367)[address] [place], [place] 2982707-10-2025 11:36-0400 Body .72 [facility] DO Work Phone: 1(376)[address] [place], [place] 2982707-10-2025 11:36-0400 Body mass index (BMI) [Ratio]29.5 kg/e1Tykzdiw House DO Work Phone: 1(405)[address] [place], [place] 2982707-10-2025 11:36-0400 Body micqbbacojm51.2 [degF]Frederick House DO Work Phone: 1(005)[address] [place], [place] 2982707-10-2025 11:36-0400 Body pgkmly94.16 kgCharsamson House DO Work Phone: 1(798)[address] [place], [place] 2982707-10-2025 11:36-0400 Diastolic blood mm[Hg]Frederick House DO Work Phone: 1(285)[address] [place], [place] 2982707-10-2025 11:36-0400 Heart rate75 /minCharles House DO Work Phone: 1(158)[address] [place], [place] 2982707-10-2025 11:36-0400 Respiratory rate18 /minCharsamson House DO Work Phone: 1(565)[address] [place], [place] 2982707-10-2025 11:36-0400 SaO2% (BldA) [Mass fraction]97 %Frederick House DO Work Phone: 1(567)[address] [place], [place] 2982707-10-2025 11:36-0400 Systolic blood sczhmliq770 mm[Hg]Frederick Tracy DO Work Phone: 1(897)[address] [place], [place] 2982704-02-2025 10:45-0400 Body chjgyn054.6 cmEda Junior MD Work Phone: [facility] CenterSsdiathgko92-72-2757 10:45-0400Body mass index (BMI) [Ratio]32.28 kg/n9ExgylrEda Junior MD Work Phone: [facility] CenterEmdknzwivt84-27-5042 10:45-0400Body .72 kgEda Junior MD Work Phone: [facility] CenterOwchgfdzwv79-11-0057 10:45-0400Diastolic blood ayiafzed38 mm[Hg]Eda Junior MD Work Phone: [facility] CenterGqvtpduzrb90-98-1771 10:45-0400Heart rate68 /min Eda Junior MD Work Phone: [facility] CenterVcdhpyocgm23-43-9321 10:45-0400Systolic blood osxrircf461 mm[Hg]Eda Junior MD Work Phone: [facility] CenterBuzevleknd15-44-3488 09:280500Body gsejug273.72 [facility]Mer[facility]02-08-2025 09:28-0500Body mass index (BMI) [Ratio]30.6 kg/z0GnytdwsnfMercy Health [facility]iffin Hospital02-08-2025 09:28-0500Body lwzvqhmiexw72.4 [degF][facility]02-08-2025 09:28-0500Body kvaubk44.34 kgMercy Health [facility] Hospital02-08-2025 09:28-0500Diastolic blood foybbbcs31 mm[Hg][facility]02-08-2025 09:28-0500 Heart buzm380 /[facility]02-08-2025 09:28-0500 Respiratory rate18 /[facility]02-08-2025 09:28-0500 SaO2% (BldA) [Mass fraction]94 %[facility]02-08-2025 09:28-0500Systolic blood jlgriyva682 mm[Hg][facility] 01-09-2024 13:47-0400Body .7 cmJosh Hearn FIRST CALENDER WORKER Work Phone: [facility] CenterGnfobehkbm37-75-0634 13:47-0400Body mass index (BMI) [Ratio]31.17 kg/n4Aiorrkfy Hearn FIRST CALENDER WORKER Work Phone: [facility] CenterPownttdtea89-82-0899 13:47-0400Body temperature 96.21 [degF]Josh Hearn FIRST CALENDER WORKER Work Phone: [facility] CenterMcndfarale08-90-6879 13:47-0400Body .99 kgBrittjose Hearn FIRST CALENDER WORKER Work Phone: [facility] CenterPykagscjlg67-53-3189 13:47-0400Diastolic blood elyeqqbn09 mm[Hg]Josh Hearn FIRST CALENDER WORKER Work Phone: [facility] CenterYklwcwypgh80-51-3620 13:47-0400Heart rate83 /min Josh Ontiverosk FIRST CALENDER WORKER Work Phone: [facility] CenterBhelazismw37-31-7696 13:47-0400Respiratory rate16 /minJosh Hearn FIRST CALENDER WORKER Work Phone: [facility] CenterTsguuivwhg44-89-4811 13:47-5102RwM7% (BldA) [Mass fraction]98 %Josh Ontiverosk FIRST CALENDER WORKER Work Phone: [facility] CenterIsbfsfhkna34-56-0327 13:47-0400Systolic blood lgouqdwk957 mm[Hg]Josh Ontiverosk FIRST CALENDER WORKER Work Phone: [facility] CenterVmwbettiau42-87-4922 11:16-0400Body yjddmi008.72 cmMer[facility]09-28-2024 11:16-0400Body mass index (BMI) [Ratio]30.1 kg/e5XtrrhsbzcMercy Health Tiffin Hospital09-28-2024 11:16-0400Body gyzfsuyivdj73 [degF][facility]09-28-2024 11:16-0400Body kmdgyi17.92 kgMercy Health [facility]iff[facility] Hospital09-28-2024 11:16-0400Diastolic blood qdfqnluw70 mm[Hg][facility]09-28-2024 11:16-0400 Heart wrxt523 /[facility]09-28-2024 11:16-0400 Respiratory rate18 /[facility]09-28-2024 11:16-0400 SaO2% (BldA) [Mass fraction]95 %[facility]09-28-2024 11:16-0400Systolic blood nylskcnn430 mm[Hg][facility] 12-12-2023 14:42-0400Body toxyub932.7 cmJosh Hearn FIRST CALENDER WORKER Work Phone: [facility] CenterUtkjemhaoo16-21-1479 14:42-0400Body mass index (BMI) [Ratio]30.11 kg/d5HdaensqtJosh Ontiverosk FIRST CALENDER WORKER Work Phone: [place] [address]Fnhkibhmot84-82-3928 14:42-0400Body temperature 97.59 [degF]Josh Ramirezzpatrick FIRST CALENDER WORKER Work Phone: [facility] CenterIzmyloessy44-18-8542 14:42-0400Body tvhqam84.81 kgJosh Campbellpatrick FIRST CALENDER WORKER Work Phone: [facility] CenterItxhkmganf49-44-4675 14:42-0400Diastolic blood uksaowoz67 mm[Hg]Josh Hearn FIRST CALENDER WORKER Work Phone: [facility] CenterGxpgenkzev32-52-0419 14:42-0400Heart aygm934 /min Josh Hearn FIRST CALENDER WORKER Work Phone: [facility] CenterComment on above:94% A953-71-1241 14:42-0400Systolic blood zivkyjrt866 mm[Hg]Josh Hearn FIRST CALENDER WORKER Work Phone: [facility] CenterTplrbwdfjj17-54-0777 14:44-0400Body aygobt096.72 cmMer[facility]08-02-2024 14:44-0400Body mass index (BMI) [Ratio]30.4 kg/q2JjvaaxcevMercy Health Tiffin Hospital08-02-2024 14:44-0400Body .1 [degF][facility]08-02-2024 14:44-0400Body abwtqa86.94 kgMercy Health Tiffin Hospital08-02-2024 14:44-0400Diastolic blood ugxbetug05 mm[Hg][facility]08-02-2024 14:44-0400 Heart rate80 /[facility]08-02-2024 14:44-0400 Respiratory rate18 /[facility]08-02-2024 14:44-0400 SaO2% (BldA) [Mass fraction]95 %[facility]08-02-2024 14:44-0400Systolic blood mxodblkj830 mm[Hg][facility] 10-15-2023 12:58-0400Blood Pressure LocationJENNVALLEYWISE [facility] MARYVALE MAXIMILIANO [facility]07-16-2024 12:58-0400Diastolic blood fnpnxxzo08 mm[Hg]EWA RICHMOND [facility]07-16-2024 12:58-0400Heart rate81 /minJENNIFER MAXIMILIANO [facility]07-16-2024 12:58-0400Respiratory rate16 /minJENNIFER MAXIMILIANO [facility]07-16-2024 12:58-0400Systolic blood ufoiwutl116 mm[Hg]EWA RICHMOND [facility]12-19-2023 12:05-0500Body .72 cmAvarun Isbell Other [facility] [employer] Other 12-19-2023 12:05-0500Body mass index (BMI) [Ratio] 30.62 kg/m2Myrna Isbell Other [employer] Other 12-19-2023 12:05-0500Body zpnsuwhdfrp70.9 [degF]Myrna Isbell Other [employer] Other 12-19-2023 12:05-0500Body jeyeei82.36 kgMyrna Isbell Other [employer] Other 12-19-2023 12:05-0500Diastolic blood ejkbzhiv761 mm[Hg]Myrna Isbell Other [employer] Other 12-19-2023 12:05-0500Respiratory rate18 /Alonso Isbell Other [employer] Other 12-19-2023 12:05-2896HuR9% (BldA) [Mass fraction]96 % Myrna Isbell Other [employer] Other 12-19-2023 12:05-0500Systolic blood mm[Hg] Myrna Isbell Other [employer] Other 12-14-2023 13:10-0500Body .72 cmAmanda Igor Other [employer] Other 12-14-2023 13:10-0500Body mass index (BMI) [Ratio] 30.41 kg/e4Gycfyn Igor Other [employer] Other 12-14-2023 13:10-0500Body firpkgeycks968.1 [degF] Magnolia Igor Other [employer] Other 12-14-2023 13:10-0500Body .72 kgAmanda Igor Other [employer] Other 12-14-2023 13:10-0500Diastolic blood visimbax56 mm[Hg] Magnolia Igor Other [employer] Other 12-14-2023 13:10-0500Respiratory rate18 /minAmanda Igor Other [employer] Other 12-14-2023 13:10-3664WzS3% (BldA) [Mass fraction]96 % Magnolia Igor Other [employer] Other 12-14-2023 13:10-0500Systolic blood eldqgroo066 mm[Hg] Magnolia Costa Other [facility] [employer] Other 07-19-2023 13:35-0400Blood Pressure LocationJENNIFER MAXIMILIANO [facility]07-19-2023 13:35-0400Diastolic blood exlkeqkm439 mm[Hg]EWA MAXIMILIANO [facility]07-19-2023 13:35-0400Heart rate81 /minJENNNIKKY CARRRY [facility]07-19-2023 13:35-0400Systolic blood wjaaggbm605 mm[Hg]EWA CARRRY [facility]01-16-2023 14:37-0500Blood Pressure LocationRobert RICE [facility]07-18-2022 14:30-0400Blood Pressure LocationRobert RICE [facility] 07-18-2022 14:30-0400Diastolic blood okfnlbdt95 mm[Hg] Murali RICE [facility] 07-18-2022 14:30-0400Heart rate67 /minRobert RICE [facility] 07-18-2022 14:30-0400Respiratory rate16 /minRobert RICE [facility] Gaetano [id number] 14:30-0400Systolic blood mm[Hg] Murali CHAVEZ [facility] Encounters Encounter DateEncounter TypeCare ProviderFacilityStart: 02-08-2025 End: 34-35-8860imqrbdfxczIrzellnChino Jones MDFacility:[facility] Start: 12-24-2024 End: 14-47-0493vjzbfdxpldImylzbj Tracy DO Work Phone: [facility] Work Phone: Start: 12-24-2024 End: 71-69-3521Lscmabk encounter procedureEloy Garcia MDSamaritan [facility] Work Phone: Start: 12-09-2024 End: 48-87-6849ouhcjvgrmoBW CHARLES P HOUSEFacility:[facility] ClinicStart: 11-16-2024 End: 58-09-9580iagvxtbcndQdgrpwk House DO Work Phone: [facility] Work Phone: Start: 11-16-2024 End: 34-90-8558Ngixnkb encounter procedureJun Ayala DO-[facility] Orthopedics Stefania Work Phone: Start: 10-12-2024 End: 20-02-6672oxnbccqymdPCHRJCOD E PERRYFacility:[facility] BellevueStart: 10-12-2024 End: 94-84-5070Ldumgqt encounter procedureJENNIFER E MAXIMILIANO [facility] start: 11-59-5747vkvzmpkpkxNUAAWGSI PERRYFacility:[facility] BellevueStart: 10-08-2024 End: 47-14-7666emqihpnlbcRagneou House DO Work Phone: [facility] Work Phone: Start: 10-08-2024 End: 38-41-6190Sgkehzy encounter procedureSharon Rodriguez FOREIGN EXCHANGE STUDENT COORDINATOR-[facility] Urgent Care Ismael Work Phone: Start: 90-34-3001Pad-patient / Non-visitNicole [facility] OutPt Work Phone: Start: 07-01-2024 End: 17-29-9541Wltuyw flowsYamil Junior MD Work Phone: [facility] ENTStart: 07-01-2024 End: 72-25-9154Bgaeiv Benny Junior MD Work Phone: [facility] ENTStart: 07-01-2024 End: 88-01-9145Rxiwzk outpatient new 45 minutesEda Junior MD Work Phone: [facility] ENTComment on above:LINSEY (obstructive sleep apnea) (Primary Dx); LPRD (laryngopharyngeal reflux disease)Start: 07-01-2024 End: 27-69-2573rorvqofgvlTMKVUO H TIMMISNot AvailableStart: 06-10-2024 End: 45-32-2068blxnjljmkqJKCJHAV P HOUSEFacility:[facility] ClinicStart: 05-14-2024 ambulatoryDO FREDERICK P HOUSEFacility:[facility] ClinicStart: 05-09-2024 End: 10-86-6294unntiwlcjuCjxzkewrc [facility] Work Phone: Start: 05-09-2024 End: 47-61-9924Vlyefqn encounter procedureFirdru Physician Group-[facility] Urgent Care Ismael Work Phone: Start: 03-09-2024 End: 30-54-3988Mtgkiz flowsNayeli B Trishing FIRST CALENDER WORKER Work Phone: [facility] ORTHOPAEDICSStart: 03-09-2024 End: 08-57-7494Sbjbei flowsheetMaria B Apling FIRST CALENDER WORKER Work Phone: [facility] ORTHOPAEDICSStart: 03-09-2024 End: 14-63-5123Xdrjuo outpatient visit 15 minutesMaria B Apling FIRST CALENDER WORKER Work Phone: [facility] ORTHOPAEDICSComment on above:Left shoulder pain, unspecified chronicity (Primary Dx); Glenohumeral arthritis, left; Arthritis of left acromioclavicular joint; Impingement of left shoulderStart: 03-09-2024 End: 70-83-5491cnartjigdpEXQFK B APLINGNot AvailableStart: 03-05-2024 End: 25-63-2248EbxuqcFpgqttfb Hearn FIRST CALENDER WORKER Work Phone: [facility] CWM FMComment on above:Seasonal allergiesStart: 02-17-2024 End: 37-38-2244Tuicrf flowsheetMaria B Apling FIRST CALENDER WORKER Work Phone: [facility] ORTHOPAEDICSStart: 02-17-2024 End: 99-62-6974Tjfxzb flowsheetMaria B Apling FIRST CALENDER WORKER Work Phone: [facility] ORTHOPAEDICSStart: 02-17-2024 End: 75-68-3400Bmpeon outpatient new 45 minutesMaria B Apling FIRST CALENDER WORKER Work Phone: [facility] ORTHOPAEDICSComment on above:Left shoulder pain, unspecified chronicity (Primary Dx); Glenohumeral arthritis, left; Arthritis of left acromioclavicular joint; Impingement of left shoulderStart: 02-17-2024 End: 29-02-9198jmyfdefoxzYCTNY B APLINGNot AvailableStart: 01-09-2024 End: 99-20-6123Vmiscd flowsheetBrittany Hearn FIRST CALENDER WORKER Work Phone: [facility]WM FMStart: 01-09-2024 End: 82-69-1210Jfgcqu flowsheetBrittany Hearn FIRST CALENDER WORKER Work Phone: NOWT CWM FMStart: 01-09-2024 End: 24-68-6788Arulik outpatient visit 15 minutesJosh Hearn FIRST CALENDER WORKER Work Phone: [facility] CWM FMComment on above:Gordon's palsy (Primary Dx) Start: 01-09-2024 End: 30-19-1467pacqmjmgyqZZEDJPNB FITZPATRICKNot AvailableStart: 12-31-2023 End: 54-77-6752Zuccrhcnj department patient visitHassler Health Farm Ambulatory PPGStart: 12-28-2023 End: 72-57-6867wshtiandaiMysduuwsnProMedica [facility] Work Phone: Start: 12-28-2023 End: 18-14-1957Pqwarub encounter procedureAtrium Health Physician Group-[facility] Urgent Care Ismael Work Phone: Start: 12-21-2023 End: 90-76-0113Khsqng OnlyJosh Hearn FIRST CALENDER WORKER Work Phone: [facility] CWM FMComment on above:Encounter for wellness examination in adult (Primary Dx)Start: 12-21-2023 End: 26-09-8905Qgkilni encounter statusJosh Hearn FIRST CALENDER WORKER Work Phone: [facility] Work Phone: Start: 12-12-2023 End: 49-32-2814Dovbjzw preventive medicine new patient 65yrs&>Josh Hearn FIRST CALENDER WORKER Work Phone: [facility] CWM FMComment on above:Primary hypertension (CMS/HCC) (Primary Dx); Encounter for wellness examination in adult; Seasonal allergies; Seasonal allergic rhinitis, unspecified trigger; Screening for hyperlipidemia; Screening for diabetes mellitusStart: 12-12-2023 End: 03-17-1024twoolnbfwcABKJCPAG FITZPATRICKNot AvailableStart: 12-12-2023 End: 71-62-3513Gtdawy flowsheetJosh Hearn FIRST CALENDER WORKER Work Phone: [facility]WM FMStart: 12-12-2023 End: 98-76-8850Hivwgn flowsheetJosh Hearn FIRST CALENDER WORKER Work Phone: [facility] CW FMStart: 12-12-2023 End: 75-85-3535Djkcbvy encounter statusJosh Hearn FIRST CALENDER WORKER Work Phone: [facility] HealthcareStart: 11-01-2023 End: 93-35-8909ptgthgktfcFmsnghrccCommunity Memorial Hospital Work Phone: Start: 11-01-2023 End: 14-36-1669Uqzrbyn encounter procedureAtrium Health Physician Group-[facility] Urgent Care Ismael Work Phone: Start: 10-15-2023 End: 84-76-2690hvefjlpyroRMOMNWZY E PERRYFacility:[facility] BellevueStart: 10-15-2023 End: 21-80-1133Jhxfxae encounter procedureJENNIFER E MAXIMILIANO [facility] start: 03-19-2023 End: 02-95-5572hkkdwwneusOddi Hahn Other [employer] Other Start: 50-51-0015Dvklnx outpatient visit 15 minutes Myrna GoldenG [facility] Care ClydeStart: 03-15-2023 End: 30-13-2980ycsatzfwrcWrgrqv Igor Other [employer] Other Start: 03-88-6770Jdbdegvwg encounterAmanda GrobFPG [facility]gent Care ClydeStart: 03-14-2023 End: 08-07-8755vrcqyokcknOmcxyv Igor Other [employer] Other Start: 62-69-8947Ktzgpk outpatient visit 15 minutes Magnolia GrobFPG Urgent Care ClydeStart: 10-17-2022 End: 83-46-3006Vvexyso encounter procedureJEALFIE RICHMOND [facility] Stefania start: 05-24-2022 End: 42-42-3379dqxvbqveejHF CHARLES LISAFacility:B1Mjkit: 04-16-2022 End: 89-84-5747Kmbfbuo encounter procedureRobjose CHAVEZ [facility] Gaetano Start: 01-26-2022 End: 96-30-9769binevbvpiqRM MURALI CHAVEZFacility:O5Letto: 10-16-2021 End: 64-91-4740Jebgynt encounter procedureRobjose CHAVEZ [facility] Gaet[place] Start: 09-08-2021 End: 20-64-4585bmnsmwcfkuCS CHARLES LISAFacility:P0Bplpz: 09-01-2021 End: 74-46-0506ewwasvcsntTLBerna GONZALEZFacility:F6Mfnnp: 06-19-2018 End: 03-60-4675Ooviupw encounter procedureJACHIN Zapien [facility] HospitalStart: 05-29-2018 End: 26-16-4239Rwxsxqb encounter procedureJAMES E [facility] Procedures DateProcedureProcedure DetailPerforming ClinicianStart: 67-02-6864Vvaprdsoafmxdg aspir&/inj major jt/bursa w/o usMaria B Apling FIRST CALENDER WORKER Work Phone: Start: 52-77-0916Gzlylefxudyzle aspir&/inj major jt/bursa w/o usMaria B Apling FIRST CALENDER WORKER Work Phone: Start: 99-44-3240Aargu shoulder complete minimum 2 viewsMaria B Apling FIRST CALENDER WORKER Work Phone: Start: 45-45-4790AJM screeningDR FREDERICK HOUSEComment on above:Performed By: #### PSAD #### [facility] [address] [place] [address] Dr. Lazaro SamAppendectomyRobert RICE Decompression of median nerveRobert RICE Plan of Treatment DateCare ActivityDetailAuthorStart: 76-88-4022Eesaehslvbvg Vaccine: 65+ Years (1 of 1 - PCV)Pneumococcal Vaccine: 65+ Years (1 of 1 - PCV)[facility] HealthcareComment on above:Postponed from 09/04/2012 (Patient Refused)Start: 09-12-2025Medicare Annual Wellness (AWV)Medicare Annual Wellness (AWV)[facility] HealthcareStart: 37-18-3399Gnngipoiz vaccinationInfluenza Vaccine (Season Ended)[facility] Start: 07-01-2024 End: 70-02-1836Xmrdtls encounter luydqwrxd16/02/2025 10:50 AM EDT Office Visit [facility] [address] [facility] [address] [place] [address] Eda Junior MD [address] [facility] [address] [place] [address] ArrivedNOMS CI ENTComment on above:ArrivedStart: 03-12-2024 End: 53-42-2189Nmxglwj encounter wqnfycgtz85/12/2024 3:30 PM EST Office Visit [facility] [address] [place] [phone] Josh Hearn NP [address] [place] [phone] [facility] CW FMStart: 03-09-2024 End: 42-72-0868Hxisqps encounter procedureNOMS CI ORTHOPAEDICSComment on above: Left shoulder pain, unspecified chronicity (Primary Dx); Glenohumeral arthritis, left; Arthritis of left acromioclavicular joint; Impingement of left shoulderStart: 95-02-6813Vdyybdeyx vaccinationInfluenza Vaccine (#1)[facility] HealthcareComment on above:Postponed from 12/01/2023 (Patient Refused)Start: 01-09-2024 End: 47-38-0402Cckpjwe encounter xricomfci88/10/2024 2:00 PM EDT Office Visit [facility] [address] [place] [address] Josh Hearn, LINA [address] [place] [address] ArrivedNOMS CWM FMComment on above:ArrivedStart: 12-21-2023 End: 26-72-716307975333-ynsdgfyjefztqe D3 [Mass/volume] in Serum or PlasmaVitamin D 25 hydroxy Lab Routine Encounter for wellness examination in adult Expected: 12/21/2023 (Approximate), Expires: 12/20/2024[facility] Work Phone: Comment on above:Expected: 12/21/2023 (Approximate), Expires: 12/20/2024Start: 12-13-2023 End: 76-04-1841TCO W Auto Differential panel - BloodCBC and differential Lab Routine Primary hypertension (CMS/HCC) Expected: 12/13/2023 (Approximate), Expires: 12/12/2024[facility] HealthcareComment on above:Expected: 12/13/2023 (Approximate), Expires: 12/12/2024Start: 12-13-2023 End: 64-64-6167Afeuuujhhdhjm metabolic 2000 panel - Serum or PlasmaComprehensive metabolic panel Lab Routine Primary hypertension (CMS/HCC) Screening for diabetes mellitus Expected: 12/13/2023 (Approximate), Expires: 12/12/2024[facility] HealthcareComment on above:Expected: 12/13/2023 (Approximate), Expires: 12/12/2024Start: 12-13-2023 End: 77-13-1565Ionfafxrpn A1c/Hemoglobin.total in BloodHemoglobin A1c Lab Routine Screening for diabetes mellitus Expected: 12/13/2023 (Approximate), Expires: 12/12/2024[facility] HealthcareComment on above:Expected: 12/13/2023 (Approximate), Expires: 12/12/2024Start: 12-13-2023 End: 42-03-1005Xbgeb 1996 panel - Serum or PlasmaLipid panel Lab Routine Primary hypertension ([facility]/HCC) Screening for hyperlipidemia Expected: 12/13/2023 (Approximate), Expires: 12/12/2024[facility] HealthcareComment on above:Expected: 12/13/2023 (Approximate), Expires: 12/12/2024Start: 12-13-2023 End: 88-06-7831WEN W/REFLEX TO FT4TSH W/REFLEX TO FT4 Lab Routine Primary hypertension (CMS/HCC) Expected: 12/13/2023 (Approximate), Expires: 12/12/2024 [facility] Healthcare Work Phone: Comment on above:Expected: 12/13/2023 (Approximate), Expires: 12/12/2024Start: 12-12-2023 End: 15-25-7498Xbqqtxv encounter njxnxejyf93/12/2024 3:00 PM EDT Office Visit [facility] [address] [place] [address] Josh Hearn, FIRST CALENDER WORKER [address] [place] [address] [facility]PR[facility] FMComment on above:ArrivedStart: 12-01-2023 Influenza vaccinationInfluenza Vaccine (#1)[facility] HealthcareStart: 09-04-2012 Pneumococcal Vaccine: 65+ Years (1 of 1 - PCV)Pneumococcal Vaccine: 65+ Years (1 of 1 - PCV)[facility] HealthcareStart: 06-06-1946Medicare Annual Wellness (AWV) Medicare Annual Wellness (AWV)[facility] Healthcare Shoulder - left [facility] Immunizations Immunization DateImmunizationNotesCare [id number] - Respiratory syncytial virus (RSV), vaccine, bivalent, protein subunit RSV prefusion F, diluent reconstituted, 0.5 mL, PFBrittany Hearn FIRST CALENDER WORKER Work Phone: [facility] [id number] (COVID-19) mRNA BNT-162b2 vaxRobert Bio[employer] [facility] MemorialyComment on above:Result Comment: 2022-04-16: [id number] (COVID-19) mRNA BNT-162b2 vaxRCorvalius [facility] [id number] (COVID-19) mRNA BNT-162b2 vax Panda [facility]03-26-2021SARS-CoV-2 (COVID-19) mRNA-1273 vaccineRobert Bio[employer] [facility] [id number]-YkC-6 (COVID-19) mRNA BNT-162b2 vax Panda [facility]03-05-2021SARS-CoV-2 (COVID-19) mRNA-1273 vaccineRobert [employer] [facility] [id number] toxoid, reduced diphtheria toxoid, and acellular pertussis vaccine, adsorbedRobert RICE [facility]07-11-2013pneumococcal vaccine, unspecified formulationJosh Ramirezzpatrick [employer] CAL[employer] WORKER Work Phone: [facility] Payers DatePayer CategoryPayerPolicy [id number] Private Health [id number] [id number] [id number]. [id number] [id number] [id number] 2.0.1.558989.3.57[id number] 2.0.1.085638.3.57[id number] 2.0.1.412271.3.57[id number] 2.0.1.040757.3.57[id number] 2.0.1.032118.3.57[id number] 2.840.1.110570.3.57[id number] 2.840.1.463528.3.57[id number] 2.840.1.221477.3.57[id number] 2.840.1.915695.3.57[id number] 2.16.840.1.189759.3.57[id number] 2.16.840.1.614721.3.57[id number] 2.16.840.1.948168.3.57[id number] 2.16.840.1.335336.3.57[id number] 2.16.840.1.921664.3.57[id number] 2.16.840.1.075522.3.57[id number] 2.16.840.1.0[id number] 2.16.840.1.340330.19 Social History DateTypeDetailFacilityStart: 04-17-2021 End: 51-00-2767Gihipxq smoking statusNever smoked tobacco (finding)[facility] Tobacco smoking statusNeverExec[facility] Start: 12-12-2023 End: 57-44-7083Hjs Assigned At [facility] Start: 59-09-5355Vjp Assigned At [facility] Hospitaltart: 62-95-9543Whqmwqr use and exposureSmokeless tobacco non-userNOMS HealthcareStart: 12-12-2023 End: 08-90-2941Hftjapcnt beverage intakeLifetime non-drinker (finding)[facility]OM[facility] HealthcareStart: 12-12-2023 End: 52-69-5098Mhygghv of Social functionNOKS HealthcareStart: 55-70-4256Qac assigned at birthNot on [facility] CenterTobacco smoking status NHISTobacco smoking consumption unknownNOKS HealthcareStart: 09-27-2018 End: 40-89-7507PtmYnik (finding)[facility] Centerexual OrientationExecutive [facility] of [facility] NEGATED: Highlighted rowStart: NINFHistory of tobacco usePassive smokerNOKS Healthcare Functional Status TeunQrttnmxcmcYmraneAvoryqhl42-68-8708Uuryhecdpd StatusN/AExec[facility] of [facility]07-19-2023Functional StatusN/A[facility]01-16-2023Functional StatusN/A [facility]07-18-2022Functional StatusN/A[facility] Clinical Notes 10-16-2021 to 10-12-2024 Note Date & QztcNzkvFaiswnxo64-24-6832 Hospital Discharge instructions Patient Education 10/12/2024 13:29:44 [...] urethra. Follow these instructions at home: Take qmjl-ddo-wcxffyi and prescription medicines only as told by [...] provider. Document Revised: 10/04/2021 Document Reviewed: 10/04/2021 [employer] Patient Education 2023 [employer]. Follow Up Care 04/15/2024 11:27:11 With:MAXIMILIANO MAIER, EWA Zapien, URL Address: [address] [place] [address] When:Within 1 Year(s) [facility] 07-14-2025 Evaluation + Plan note Diagnostic Tests Pending * Testosterone Level Total 10/12/24 * Hemoglobin and Hematocrit 10/19/24 * Lipid Panel 10/19/24 * Hepatic Function Panel 10/19/24 * PSA Screen, Total 10/19/[address] [facility] 07-14-2025 NotePatient Education Urology Benign Prostatic [...] Follow these instructions at home: ??? Take hicz-rnb-ewjcilf and prescription medicines only as told by [...] symptoms do not get (more content not included)...[facility]07-10-2025 Evaluation note* Diagnosis Onset Date Resolution Status Admit Date Insect bites noneactiveJuly 2024 11:28amPrimary osteoarthritis, left shoulderacute November 16, 2024 11:03am [facility] Work Phone: 1(203) 581-496807-10-2025 Evaluation note* Diagnosis Onset Date Resolution Status Admit Date Insect bites noneactiveJuly 2024 11:28amPrimary osteoarthritis, left shoulderacute November 16, 2024 11:03amCentral apneaacuteSeptember 2024 1:32pmChronic insomniaacuteSeptember 2024 1:32pmHypnotic dependenceacuteSept2024 1:32pmObstructive sleep apneaacuteSept2024 1:32pSelect [facility] Work Phone: 1(631) 904-998304-02-2025 History of Present illness Narrative* Eda Junior [...] below the titrated pressure documented in this encounterKansas City VA Medical CenterAbfjkcwxft25-16-6449 History of Present illness Narrative* Brii Oconnor [...] as tolerated, f/U prn documented in this encounterKansas City VA Medical CenterJouwtjxlnz77-79-5470 History of Present illness Narrative* Brii Oconnor [...] arthritis of the glenohumeral joint. Brii Oconnor CURATOR [employer] L Inj/Asp: L subacromial bursa on 02/17/2024 [...] f/u in 2 weeks. 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 Was seen in Ed on 12/31/23; Dx with Pickett Palsy. Had a sinusinfection the weeks prior; [...] for Follow-up. HPI Was in ED for Pickett Palsy on 12/31/2023- Had a sinus infection [...] seen in Ed on 12/31/23; Dx with Pickett Palsy. Had a sinusinfection the weeks prior; [...] first. Pt verbalized understanding. documented in this encounterKansas City VA Medical CenterOotmauwxxg67-69-5853 History of Present illness Narrative* Josh Hearn [...] for Establish Care (/). HPI Specialists: Neurology- [facility] Urology- Dr. Richmond HTN: Pt changed [...] (Diovan) 80 MG tablet documented in this encounterKansas City VA Medical CenterUacufwrjot28-61-9588 Instructions* Patient Instructions* Josh Hearn NP - [...] day. Consider tracking your food intake on MySilk Road MedicalinessPal or LoseIt Water: Increase water intake; GOAL [...] of sleep per night. documented in this encounterKansas City VA Medical CenterEodjjylpfp81-91-1252 Hospital Discharge instructions Patient Education 10/15/2023 13:38:59 [...] therapy. Follow these instructions at home: Take swjo-vli-ryzatii and prescription medicines only as told by [...] provider. Document Revised: 11/17/2020 Document Reviewed: 11/17/2020 [employer] Patient Education 2022 [employer]. Follow Up Care 10/17/2022 15:04:57 With:EWA RICHMOND PA-C, URL Address: [address] [place] [address] [id number] When: Unknown Comments:1 year w/ PSA, LFTs, Lipids, H&H, total T level [facility] 07-16-2024 Evaluation + Plan note Diagnostic Tests Pending * Testosterone Level Total 10/15/23 * Hepatic Function Panel 10/15/23 * Lipid Panel 10/15/23 * Hemoglobin and Hematocrit 10/15/23 * PSA Total 10/15/23 [facility] Stefania 07-16-2024 NotePatient Education Urology Hypogonadism, [...] Follow these instructions at home: ? Take kydy-cso-uydnemx and prescription medicines only as told by [...] care provider. Document Revised: (more content not included)...[facility] 03-19-2023 Evaluation note* Encounter Date [...] today 120s/80s, he reports white coat syndrome. [employer] Other 12-14-2023 Evaluation note* Encounter Date Diagnosis [...] (suspected) exposure to covid-19 (ICD-10 - Z20.822) [employer] Other 07-19-2023 Hospital Discharge instructions Patient Education [...] therapy. Follow these instructions at home: Take jmpl-wlf-cueixqf and prescription medicines only as told by [...] provider. Document Revised: 11/17/2020 Document Reviewed: 11/17/2020 [employer] Patient Education 2022 [employer]. Follow Up Care 08/31/2022 12:38:12 With:MAXIMILIANO MAIER EWA Curry, URL Address: [address] [place] [address] When: Unknown [facility] 01-16-2023 Hospital Discharge instructions Patient Education [...] 06/24/2001 Document Revised: 07/09/2019 Document Reviewed: 02/11/2017 [employer] Patient Education 2020 [employer]. Follow Up Care 10/16/2021 15:07:22 With:SCOTT HOANG, Murali W, URL Address: [address] [place] [address]- When:6 months Comments:PSA & testosterone [facility] 07-18-2022 Hospital Discharge instructions Patient Education 10/16/2021 [...] urethra. Follow these instructions at home: Take qfgo-zpa-ylakrih and prescription medicines only as told by [...] 03/18/2006 Document Revised: 02/10/2019 Document Reviewed: 04/22/2017 [employer] Patient Education 2020 [employer]. Follow Up Care 04/17/2021 14:02:48 With:Murali CHAVEZ MD, URL Address: [address] [place], [place] [address]- When:3 months Comments:Testosterone level [facility] Chip Path Design Systemsaluation + Plan note Future Appointments Appointment Date:04/16/2022 02:15:00 PM Scheduled Provider:Murali CHAVEZ MD Location:[facility] Appointment Type:URO Office Visit Diagnostic Tests Pending * Testosterone Level Total 10/16/21 [facility] [employer] Path Design Systemsaluation + Plan note Future Appointments Appointment Date:10/15/2022 02:15:00 PM Scheduled Provider:Murali CHAVEZ MD Location:[facility] Appointment Type:URO Office Visit Diagnostic Tests Pending * PSA Total 04/16/22 * Testosterone Level Total 04/16/22 [facility] Evaluation + Plan note Future Appointments Appointment Date:10/23/2023 01:20:00 PM Scheduled Provider:EWA RICHMOND PA-C Location:[facility] Appointment Type:URO Office Visit Diagnostic Tests Pending * PSA Total 08/31/23 * Testosterone Level Total 10/17/22 * Hemoglobin and Hematocrit 08/31/23 * Hepatic Function Panel 08/31/23 * Lipid Panel 6/1/24 [facility] [place] evaluation noteNo [facility] [employer] Other Evaluation note* Diagnosis Onset Date Resolution Status Bee sting reaction acute [facility] Work Phone: Evaluation note* Diagnosis Onset Date Resolution Status Bee sting reaction acuteAcute maxillary sinusitis, unspecifiedacute [facility] Work Phone: Evaluation note* Diagnosis Primary [...] for lipoid disorders Screening for diabetes mellitus Gordno's palsy- Primary Left shoulder pain, unspecified chronicity- Primary Glenohumeral arthritis, left Arthritis of left acromioclavicular joint Impingement of left shoulder documented in this encounter [facility] HealthcareEvaluation note* Diagnosis Encounter for wellness examination in adult- Primary documented in this encounter [facility] HealthcareEvaluation note* Diagnosis Onset Date Resolution Status Admit Date Bronchitis acuteFebruary 2024 9:08am [facility] Work Phone: Evaluation note* Diagnosis Primary [...] mention of obstruction documented in this encounter [facility] HealthcareEvaluation noteNo assessment information availableFirGreen Cross Hospital Work Phone: History general Narrative - Reported* Type Description Date Medical History glaucoma Medical HistoryinsomniaMedical HistoryGERD (gastroesophageal reflux disease) Medical HistoryHypothyroidismSurgical HistorytonsillectomySurgical History appendectomySurgical Historycarpal tunnel release rightHospitalization History see above [employer] Other Hospital course Narrative No data available for this section [facility] Progress note No data available for this section [facility] Reason for referral (narrative)No reason for referral information availableTrumbull Memorial Hospital Work Phone: Summary Purpose Family History [...] section and content) DATE CREATED AUTHOR 06/20/2018 [facility] DATE CREATED AUTHOR AUTHOR'S ORGANIZ ATION 05/29/[address] [facility] DATE CREATED AUTHOR AUTHOR'S ORGANIZ ATION 01/05/2024 [facility] DATE CREATED AUTHOR AUTHOR'S ORGANIZ ATION 07/04/2024 [facility] DATE CREATED AUTHOR AUTHOR'S ORGANIZ ATION 10/14/2024 [facility] DATE CREATED AUTHOR AUTHOR'S ORGANIZ ATION 02/09/2025 [facility] DATE CREATED AUTHOR AUTHOR'S ORGANIZ ATION 02/11/2025 [facility] Care Team (unrecognized sect ion [...] Date Roddy Orona MD [address] [place] [address] PCP - GeneralFamily Medicine12/09/23 Josh Hearn NP [address] [address] Nurse PractitionerFamily Medicine12/09/23Team MemberRelationshipSpecialtyStart DateEnd Date Roddy Orona MD [address] [place] [address] PCP - GeneralFamily Medicine12/09/23 Josh Hearn NP [address] [place] [address] Nurse Practitionermily Medicine12/09/23Team MemberRelationshipSpecialtyStart DateEnd Date Frederick Gonzalez MD [address] [place] [address] PCP - GeneralMercyone Dyers[facility] Medical Centerly Pgwcnzre05/18/24Team MemberRelationshipSpecialtyStart Date End Date Frederick Gonzalez MD [address] [place] [address] PCP - GeneralMercyone [facility]yersville Medical Centerly Vsfwswsh49/18/24Team MemberRelationshipSpecialtyStart Date End Date Frederick Gonzalez MD [address] [place] [address] PCP - [facility]02/17/24Team MemberRelationshipSpecialtyStart Date End Date Roddy Orona MD [address] [place] [address] PCP - GeneralFamily Medicine12/09/23 Josh Hearn NP [address] [place] [address] Nurse PractitionerNorthside Hospital [facility]12/09/23Te MemberRelationshipSpecialtyStart DateEnd Date Roddy Orona MD [address] [place] [address] PCP - GeneralFamily Medicine12/09/23 Josh Hearn, LINA [address] [place] [address] Nurse Practitionermily Medicine12/09/23Team MemberRelationshipSpecialtyStart DateEnd Date Frederick Gonzalez MD [address] [place] [address] [facility]CP - [facility]Co[facility] Nimmjfro29/18/24Team MemberRelationshipSpecialtyStart Date End Date Frederick Gonzalez MD [address] [place] [address] PCP - GeneralNorthside Hospital [place]02/17/24Team MemberRelationshipSpecialtyStart Date End Date Roddy Orona MD [address] [place] [address] PCP - GeneralFamily Medicine12/09/23 Josh Hearn NP [address] [address] Nurse PractitionerNorthside Hospital [place]12/09/23 Team Status: Inactive Member Role Status Dates Frederick Gonzalez DO Primary Care Provider Active Start: May 09, 2024 End: May 09kirk Costa APRNAtdawna ProviderActiveStart: May 09, 2024 End: May 09, 2024Team MemberRelationshipSpecialtyStart DateEnd Date Frederick Gonzalez MD [address] [place] [address] PCP - GeneralFamily Qrxazsao89/18/24Team MemberRelationshipSpecialtyStart Date End Date Frederick Gonzalez MD [address] [place] [address] PCP - GeneralFamily Lzbjavyp00/18/24 Team Status: Inactive Member Role Status Dates [...] BE BASED ON THE PRIMARY CLINICAL RECORDS. [facility] [employer] [facility]. provides no warranty or guarantee of the accuracy or completeness of information in this document.
--- NOTE | 2025-02-24 13:15 | PM.CN ---
Consult Note: HPI Data of Consult Patient: known to practice within the last 3 years Consult date: 02/24/25 Requesting Physician: Dianna Marmolejo NP Primary Care Provider: GHAZAL GONZALEZ Consult Narrative Reason for consult: left shoulder pain Narrative: 79yom who presents for evaluation. longstanding left shoulder pain that has progressively worsened. has seen ortho and had multiple steroid injections, which initially helped. now ortho recommends total shoulder replacement, though he is hesitant given his very active lifestyle. has completed chiropractic therapy, physical therapy, home exercises >6 weeks, without lasting benefit. imaging shows fairly severe osteoarthritic changes. uses muscle relaxer tizanidine and gabapentin 300mg BID. denies adverse med side effects. patient recently underwent left suprascapular and axillary nerve block with at least 80% improvement in pain >3 days. notes preop pain 8/10 post op pain 0/10. cc:: CC: Dianna Marmolejo NP Review of Systems ROS Musculoskeletal Reports: joint pain PFSH PFS Medical History (Updated 02/15/25 @ 07:30 by Nisreen Frausto RN) Acid reflux ?K21.9 - Gastro-esophageal reflux disease without esophagitis (ICD-10) Sleep apnea ?G47.30 - Sleep apnea, unspecified (ICD-10) Hypertension ?I10 - Essential (primary) hypertension (ICD-10) Surgical History H/O carpal tunnel repair ?Z98.890 - Other specified postprocedural states (ICD-10) History of appendectomy ?Z90.49 - Acquired absence of other specified parts of digestive tract (ICD-10) Social History Little interest or pleasure in doing things: not at all Feeling down, depressed, or hopeless: not at all Meds Home Medications and Allergies Home Medications ?Medication ?Instructions ?Recorded ?Confirmed ?Type loratadine 10 mg tablet (Allergy 10 mg PO Q24H 12/31/23 02/15/25 History Relief (loratadine)) testosterone cypionate 100 mg/mL 50 mg subcut Q7D 12/31/23 02/15/25 History intramuscular oil timolol maleate 0.25 % eye drops 1 drp ophthalmic (eye) DAILY 12/31/23 02/15/25 History zolpidem 12.5 mg tablet,extended 12.5 mg PO DAILY 12/31/23 02/15/25 History release,multiphase gabapentin 300 mg capsule 300 mg PO BID #60 caps 02/08/25 02/15/25 Rx tizanidine 4 mg tablet 4 mg PO DAILY PRN muscle spasticity 02/09/25 02/15/25 History amlodipine 10 mg tablet 10 mg PO DAILY 02/15/25 02/15/25 History omeprazole 40 mg capsule,delayed 40 mg PO DAILY 02/15/25 02/15/25 History release Allergies Allergy/AdvReac Type Severity Reaction Status Date / Time No Known Drug Allergies Allergy Verified 02/15/25 07:24 Exam Constitutional Documenting provider has reviewed patient's vital signs: yes Common normals: no apparent distress, oriented x3 and alert General appearance: cooperative HENMT Common normals: normocephalic, hearing grossly normal bilaterally and moist oral mucous membranes Head and scalp: normocephalic Eye Common normals: PERRL Pupil: PERRL Neck & C-Spine Common normals: full ROM General: normal visual inspection Chest Common normals: inspection of chest normal Respiratory Common normals: normal respiratory effort, no retractions and no use of accessory muscles Extremity Left upper extremity: shoulder joint Other: moderate pain with crossbody adduction, unable to complete posterior liftoff or apleys scratch test due to pain and limitation in ROM. strength 5/5 in BUE. Neuro Common normals: oriented x3 Sensorium/orientation: alert Psych Common normals: mental status grossly normal, thought process normal, cooperative, affect normal, speech normal and activity/motor behavior normal Speech: normal speech Thought process: normal thought process Results Additional Findings Additional findings: If on a controlled substance or opioids, I have checked an OARRS report on this patient and there are no aberrancies noted in the prescribing history.??If on a controlled substance or opioid a drug screen was completed and reviewed within the last year, and if there has not been a drug screen completed we ordered one today to monitor higher risk, state monitored pain medication use. As part of providing excellent, safe, comprehensive care, the following was completed at our patient's visit: 1. A medication reconciliation and review to ensure accurate knowledge of current/active medications, including asking our patients to inform us about any ssyf-vkm-abcwmoa medications or herbal remedies/nutritional supplements/alternative remedies. 2. A review to specifically ensure our patients have had annual screening for screening for depression, screening for tobacco use, and screening for unhealthy alcohol use. For concerning screenings had a discussion with the patient, provided patient education, and recommended follow-up with primary care provider when appropriate. If patient noted with a risk of falling, they received education on strength, gait, and balance training to prevent future risk of falling. Portions of this note may have been carried over from the previous visit and updated as appropriate. Please note this office utilizes paper charting in addition to the electronic medical record. A list of current medications, vitals, and PMH is available there as the clinical staff outside of myself do not have access to [employer] charting during the clinic day operations. As part of providing quality comprehensive care the current medications, vitals, and PMH were reviewed in the paper chart. Assessment and Plan Assessment and Plan (1) Primary osteoarthritis, left shoulder: (2) Left shoulder pain: Qualifiers: Chronicity: chronic Qualified Code(s): M25.512 - Pain in left shoulder; G89.29 - Other chronic pain Plan 79yom who presents for evaluation. failed conservative measures, as noted. imaging reviewed, as noted. given symptoms and imaging, prudent to attempt left suprascapular and axillary nerve radiofrequency ablation. he is in agreement. meds reviewed. continue gabapentin 300mg BID, pt can talk with pcp about weaning ambien so he can take gabapentin 300mg HS. pt was advised by Dr Jones not to take concurrently due to risks. f/u 1 month after RFA
== END 2025-02-24 12:35 | disposition home or self-care (01) ==
LOC: PM 12:34
PROVIDERS: PCP Family Medicine; Visit Provider Nurse Practitioner
DX: M19.012 Primary osteoarthritis, left shoulder (principal); M25.512 Pain in left shoulder; G89.29 Other chronic pain
CPT/HCPCS: G0463

== ENCOUNTER 2025-03-08 07:44 | Day surgery (SDC) | payer MEDICARE, OTHER, SELFPAY ==
--- OUTSIDE RECORDS SUMMARY | 2025-03-08 07:47 | XMS_ITS | Clinical Summary ---
[facility] Organization [facility] Address [id number] [place] [address] Care Team Providers Care Attending Physician Name Role Phone Unavailable Primary Care Provider Unavailabl e Social History Tobacco UseTypesPacks/DayYears UsedDateSmoking Tobacco: Never AssessedChildcare AnswerDate KnqblgksFmmwscehyBrtylld13/12/2019EmploymentAnswerDate Recorded IsoxqljvaeNgndvrn52/12/2019Sex and Gender InformationValueDate RecordedSex Assigned at BirthNot on fileLegal IazPepb9211/04/2014 11:34 AM EDTGender Identity Not on fileSexual OrientationNot on file Plan of Treatment Not on file Medical Devices Not on file
--- OUTSIDE RECORDS SUMMARY | 2025-03-08 07:47 | XMS_ITS | Clinical Summary ---
Author Organization [facility] Healthcare Address [address] [place] [address] Care Team Providers Care Arcgis Developer Name Role Phone House, Frederick Bradley MD Primary Care Provider [phone] Allergies No known active allergies Medications MedicationSigDispense [...] 5Active Active Problems ProblemNoted DateDiagnosed DateChronic renal mryxzuw7307/01/2024GERD without jkomsevinit02/02/1335Qdnpjckj07/02/7548Ziuhspdo19/02/2025Osteoarthritis 07/01/20244522Zshmeicpw88/02/2025OSA on CPAP07/01/2024ell's palsy01/09/2024 Assessment & Plan (01/15/2024 8:41 AM EDT): Developed right sided facial asymmetry. Was seen in [facility] on 12/31/23; Dx with [place] Palsy. Had a sinusinfection the weeks prior; [...] from provider first. Pt verbalized understanding. Primary kyawzxivmqbg52/13/2024 Assessment & Plan (12/13/2023 12:47 PM EDT): [...] medication regimen at next visit. Screening for aaeizrywunlbev74/13/2024Screening for diabetes jrhlksax19/13/2024 Xtlfokvie04/12/7806Gxuzdmlhvtemby66/12/2024symptomatic microscopic hematuria 12/12/2023MI 30.0-30.9,adult12/12/2023PH with urinary ucamrnwmkwm78/12/2024 Male sopcyxnicgvr80/12/2024Urinary chilphfsa18/12/2024Encounter to establish care12/12/2023Encounter for wellness examination in adult12/12/2023Seasonal allergic lyyieagp55/12/2024 Assessment & Plan (12/13/2023 12:50 PM EDT): Ringing in ears has been ongoing for several years. Admits: Sinus congestion Runny nose Post nasal drip Initiated Flonase and cetirizine for allergy symptoms. Advised pt to continue this regimen, if no relief by next OV we can consider next steps such as ENT referral for tinnitus. Enhyndmuvkqdxv40/28/2019 Immunizations ImmunizationAdministration DatesNext DueABRYSVO - Respiratory syncytial virus (RSV), vaccine, bivalent, protein subunit RSV prefusion F, diluent reconstituted, 0.5 mL, PF2023Moderna SARS-CoV-2 Fxdmizuzopy91/26/2021, 1Pneumococcal, Hwpgatklslc59/11/0037Pkgy40/10/2019 Family History Medical HistoryRelationNameCommentsNo Known ProblemsFatherNo Known Problems MotherRelationNameStatusCommentsFatherDeceasedMotherDeceased Social History Tobacco UseTypesPacks/DayYears UsedDateSmoking Tobacco: NeverPassive Smoke Exposure: NeverSmokeless Tobacco: Never Tobacco Cessation:Counseling Given: Not Answered Alcohol UseStandard Drinks/WeekCommentsNever0 (1 standard drink = 0.6 oz pure alcohol)PHQ-2AnswerDate RecordedPatient Health Questionnaire-2 Cggtv350 Sex and Gender InformationValueDate RecordedSex Assigned at BirthNot on file Legal HiiXpor3606/13/2022 6:46 PM EDTGender IdentityNot on fileSexual Orientation Not on file Last Filed Vital Signs Vital SignReadingTime TakenCommentsBlood Ivofpgaj456/7004 10:45 AM EDT Snhof8682 10:45 AM DQYRfvuubotoup21.7 ??C (96.2 ??F)01/09/2024 1:47 PM EDTRespiratory Nycs2907 1:47 PM EDTOxygen Ibqecgliqh87%01/09/2024 1:47 PM EDTInhaled Oxygen Concentration--Oheeus95.7 kg (200 lb)07/01/2024 10:45 AM DLAPzseka300.6 cm (5' 6 )07/01/2024 10:45 AM EDTBody Mass Index32.28007/01/2024 10:45 AM EDT Plan of Treatment Not on file Insurance [place] [employer] [id number] Care Teams Team MemberRelationshipSpecialtyStart DateEnd Frederick Grimm MD [address] [place] [id number] PCP - [facility]02/17/24
--- OUTSIDE RECORDS SUMMARY | 2025-03-08 07:49 | XMS_ITS | CCD ---
Author Organization [facility] CliniSynj Care Team Providers Care Business Controller Name Role Phone NARCISO MARINELLI Attending Unavailable [...] able Roddy Orona MD Primary Care Provider [phone] Josh Hearn NP Unavailable Frederick Gonzalez MD Primary Care Provider EDA JUNIOR Attending Unavailable JOSH HEARN Attending UnavailJOSH Chavez Attending UnavailBRII Trivedi Attending Unavailable BRII OCONNOR Referring Unavailable BRII OCONNOR Attending Unavailable Frederick Gonzalez DO Primary Care Provider [phone] Sharon Rodriguez APRN Attending Provider [phone] FREDERICK GONZALEZ Primary Care Physician [phone] EWA RICHMOND Attending Unavailable EWA RICHMOND Attending Unavailable House Frederick Primary Care Provider Nancy Quintanilla DO Attending Provider Jun Ayala DO Attending Provider Jose HOANG, Eloy Whittaker Attending Provider [phone] HOUSE, DO FREDERICK P Attending Unavailable HOUSE, FREDERICK P Primary Care Unavailable HOUSE, FREDERICK P Primary Care Unavailable HOUSE, DO FREDERICK P Attending Unavailable HOUSE, DO FREDERICK P Attending Unavailable HOUSE, FREDERICK P Primary Care Unavailable Karen HOANG, David Katz Attending Unavailable Allergies Allergy ClassificationReported Allergen(s)Allergy TypeDate of OnsetReaction(s) Facility (1 source)No Known Medication Allergies; Translations: [No Known Medication Allergies]Propensity to adverse reactions (disorder)[facility] Repository Medications Current Medications MedicationDrug Class(es)DatesSig (Normalized)Sig (Original)sensor 200 actuat albuterol 0.09 mg/actuat dry powder inhaler (6 sources)beta2-Adrenergic AgonistStart: 26-38-3873gidpjcsvm (ProAir Digihaler) 90 mcg/act breath-activated inhaler (w/ sensor) 0 Refill(s) 5Active Start: 98-19-9651Hivraxaca Sulfate 90 mcg/actuation HFA aerosol inhaler Active 2 INH INHALATION EVERY 4-6 HOURS as needed for shortness of breath or wheezing 6.7 May 09, 2024 1:00am Complies with drug therapyAlbuterol Sulfate 90 mcg/actuation HFA aerosol inhaler (1 source)Start: 34-19-9918Owakjvoii Sulfate 90 mcg/actuation HFA aerosol inhaler Active 2 INH INHALATION EVERY 4-6 HOURS as needed for shortness of breath or wheezing 6.7 May 09, 2024 12:00amALPRAZolam 0.5 mg oral tablet (3 sources)BenzodiazepineStart: 57-74-6801ZEOETColho (Xanax) 0.5 MG tablet 0.5 mg 05/14/2024 ActiveamLODIPine 5 mg oral tablet (1 source)Dihydropyridine Calcium Channel BlockerStart: 72-27-0350yjzz 1 tablet by mouth once dailyAmlodipine 5 mg tablet Active 5 MG PO Daily December 24, 2024 12:00am Complies with drug therapyazithromycin 250 mg oral tablet (2 sources)Macrolide AntimicrobialStart: 17-61-0856Dfhswktyp Z-Jean-Claude 250 MG as directed Orally Mar, Activecholecalciferol (Vitamin D3) 200 Unit tablet split tablet (16 sources)cholecalciferol (Vitamin D3) 200 Unit tablet split tablet Take by mouth Activedoxycycline hyclate 100 mg oral capsule (3 sources)Tetracycline-class DrugStart: 06-10-2024 End: 52-81-5986fqtturbocch (Vibramycin) 100 MG capsule 100 mg 06/10/2024 07/01/2024 Discontinued (Therapy completed)famotidine 20 mg oral tablet (2 sources)Histamine-2 Receptor AntagonistStart: 07-01-2024 End: 88-41-1450lktj 1 tablet by mouth at bedtimefamotidine (Pepcid) 20 MG tablet Indications: LPRD (laryngopharyngeal reflux disease) Take 1 tablet(20 mg) by mouth at bedtime 90 tablet 07/01/2024 09/29/2024 Activefluticasone propionate 0.05 mg/actuat metered dose nasal spray (20 sources)CorticosteroidStart: 12-12-2023 End: 80-74-0697Cltadvmelml Propionate 50 mcg/actuation spray,suspension Active INTRANASAL December 28, 2023 12:00am Complies with drug therapylevothyroxine sodium 0.075 mg oral tablet (6 sources)l-ThyroxineStart: 77-28-9064ajbs 1 tablet by mouth once daily levothyroxine [...] mg oral tablet (20 sources)Start: 12-28-2023 End: 15-62-2984sghi 1 tablet by mouth once dailyLoratadine (Allergy Relief (Loratadine)) 10 mg tablet Active 10 MG PO Daily December 28, 2023 12:00am Complies with drug therapyStart: 12-12-2023 End: 47-78-8170kqjn 1 capsule by mouth at bedtimeLoratadine 10 MG capsule Indications: Seasonal allergies Take 10 mg by mouth at bedtime 30 capsule 2 12/12/2023 03/05/2024 Discontinuedomeprazole 20 mg delayed release oral tablet (20 sources)Proton Pump InhibitorStart: 41-80-2134dsir 1 tablet by mouth once dailyOmeprazole Magnesium (Prilosec Otc) 20 mg tablet,delayed release (DR/EC) Active 20 MG PO Daily December 24, 2024 12:00am Complies with drug therapy Start: 07-01-2024 End: 73-25-1964trfk 1 capsule by mouth before mealtimeomeprazole (PriLOSEC) [address] capsule Indications: LPRD (laryngopharyngeal reflux disease) Take 1 c apsule (40 mg) by mouth in the morning. Take before meals. Do not crush or chew.. 90 capsule 07/01/2024 09/29/2024 ActiveStart: 12-29-2018 End: 86-19-7492kvib 1 capsule by mouth once dailyOmeprazole 10 mg capsule,delayed release(DR/EC) Discontinued 10 MG PO Daily November 01, 2023 12:00am December 24, 2024 2:08pm End: 98-36-1706fgqashrhbg OTC (PriLOSEC OTC) 20 MG EC tablet Prilosec OTC 10mg QD 07/01/2024 Discontinued (Therapycompleted)take 1 capsule by mouth once daily PriLOSEC 10 MG 1 capsule 30 minutes before morning meal Orally Once a day Active predniSONE (8 sources)Start: 76-71-3795fyqdncNNEA 10 mg Tab See Instructions, Refills(s) 0 Start Date: 10/12/24 Status: Ordered Repeat number: 1Start: 10-08-2024 End: 30-56-9260Zjlpjqplav 10 mg tablet Discontinued 10 MG PO As Directed 20 12October 08, 2024 12:00am December 24, 2024 2:07pm 4 tablets x 3 days, 2 tablets x 3 days, 1 tablet x 3 daysStart: 05-09-2024 End: 66-52-8278bkbi 2 tablets by mouth once dailyPrednisone 20 mg tablet Discontinued 40 MG PO Daily 6 May 09, 2024 1:00am December 24, 2024 2:07pmtadalafil 5 mg oral tablet (20 sources)Phosphodiesterase 5 InhibitorStart: 03-53-5703cypy 1 tablet by mouth once dailyTadalafil 5 mg tablet Active 5 MG PO Daily December 24, 2024 12:00am Complies with drug therapyStart: 99-42-1609nfdt 1 tablet by mouth once dailyCialis 5 mg oral tablet 5 mg = 1 tab(s), Oral, Daily Start Date: 10/23/18 Status: Ordered Repeat number: 1Temazepam (8 sources)BenzodiazepineStart: 38-55-1976qtrrdbgyi 30 mg Start Date: 12/25/18 Status: Orderedtemazepam (Restoril) 30 MG capsule Take by mouth Daily as needed ActiveTemazepam Not-Taking/PRNtestosterone cypionate 100 mg/ml injectable solution (16 sources)AndrogenStart: 38-48-6139Mnosgtsufkfg Cypionate 100 mg/mL oil Active 50 MG IM .Q5November 01, 2023 12:00am Complies withdrug therapyStart: 11-42-0268Ztfzaklvijcp Cypionate Active 50 MG IM .Q5November 01, 2023 12:00amStart: 50-37-9112wvaozjwwbcis cypionate 100 mg/mL intramuscular solution 50 mg, IntraMuscular, q5day, # 10 mL, Refills(s) 5, Pharmacy: [id number], 172, cm, 10/17/22 13:50:00 EDT, Height/Length Dosing,95, kg, 10/17/22 13:50:00 EDT, Weight Dosing Start Date: 09/17/23 Status: OrderedStart: 10-17-2022 testosterone cypionate 100 mg/mL intramuscular solution 50 mg, IntraMuscular, q5day, # 10 mL, Refills(s) 5, Pharmacy: [facility], 172, cm, 10/17/22 13:50:00 EDT, Height/Length Dosing,95, kg, 10/17/22 13:50:00 EDT, Weight Dosing Start Date: 10/17/22 Status: OrderedStart: 11-94-3280ieqkadsajdlj cypionate 100 mg/mL intramuscular solution 50 mg, IntraMuscular, q5day, # 10 mL, Refills(s) 3, Pharmacy: [facility][id number], 172, cm, 10/16/21 14:53:00 EDT, Height/Length Dosing, 95, kg, 10/16/21 14:53:00 EDT, Weight Dosing Start Date: 01/22/22 Status: OrderedStart: 31-80-6042tfwzrxtucwvq cypionate 100 mg/mL intramuscular solution 50 mg, IntraMuscular, q7day, # 10 mL, Refills(s) 3, Pharmacy: [facility] #[id number], 172, cm, 10/16/21 14:53:00 EDT, Height/Length Dosing, 95, kg, 10/16/21 14:53:00 EDT, Weight Dosing Start Date: 10/16/21 Status: Ordered Start: 16-24-0281Xlbu-Testosterone 50 mg, IntraMuscular Start Date: 09/28/19 Status: Orderedtestosterone cypionate (Depo-Testosterone) 200 MG/ML injection testosterone cypionate 200 mg/mL intramuscular oil ActiveTestosterone Cypionate 50 MG/ML (3 sources)Testosterone Cypionate 50 MG/ML as directed Injection Activetimolol 2.5 mg/ml ophthalmic solution (20 sources)beta-Adrenergic BlockerStart: 42-33-0937vlor 1 drop(s) into the eye(s) onceTimolol Maleate 0.25 % drops Active 1 DROPS OPHTHALMIC Once December 28, 2023 12:00am Complies with drug therapyStart: 02-56-8127pqrr 1 drop(s) into the eye(s) onceTimolol Maleate Active 1 DROPS OPHTHALMIC Once December 28, 2023 12:00amStart: 11-01-2023 End: 57-39-5184bkjk 0.5 drop(s) into the eye(s) once dailyTimolol 0.5 % drops Discontinued 1 DROPS EYE-BOTH Daily November 01, 2023 12:00am December 27 11:22amStart: 11-01-2023 End: 96-00-5094ynjl 1 drop(s) into the eye(s) once dailyTimolol Discontinued 1 DROPS EYE-BOTH Daily November 01, 2023 12:00am December 28, 2023 11:22amStart: 46-89-3376jioo 1 drop(s) into the eye(s) once dailyTimolol Active 1 DROPS EYE- BOTH Daily November 01, 2023 12:00amStart: 85-78-7459Bgrhswa GFS 0.5% Gel drop(s), Daily, Refill(s) 0 Start Date: 10/10/20 Status: Ordered Repeat number:1 Start: 51-32-4989Tdnuoeo GFS 0.5% Gel drop(s), Daily, Refill(s) 0 Start Date: 10/10/20 Status: OrderedStart: 48-56-1644Ojwjfip GFS 0.5% Gel drop(s), Daily, Refill(s) 0 Start Date: 10/10/20 Status: Orderedtake 1 drop(s) into the eye(s) once dailytimolol (Timoptic) 0.5 % ophthalmic solution Administer 1 drop into both eyes Daily ActiveTimolol Maleate ActivetiZANidine 4 mg oral capsule (3 sources)Central alpha-2 Adrenergic AgonistStart: 47-76-7669feTMWrsczg (Zanaflex) 4 MG capsule 0 Refill(s) 06/10/2024 Activezolpidem tartrate 12.5 mg extended release oral tablet (20 sources)gamma-Aminobutyric Acid-ergic AgonistStart: 39-95-4924Bvyflqfb Active MG PO November 01, 2023 12:00amStart: 90-82-7562Xhmnozor 12.5 mg tablet,ext release multiphase Active MG PO November 01, 2023 12:00am Complies with drug therapy Completed/Discontinued Medications MedicationDrug Class(es)DatesSig (Normalized)Sig (Original)amoxicillin 875 mg / clavulanate 125 mg oral tablet (6 sources)Penicillin-class AntibacterialStart: 12-28-2023 End: 96-64-3207jsun 1 tablet by mouth every twelve hoursAmoxicillin-Pot Clavulanate 875-125 mg tablet Discontinued 1 TAB PO Every 12 hours 18 01December 28, 2023 12:00am May 09, 2024 10:29amStart: 97-27-0498kprh 1 tablet by mouth every twelve hoursAmoxicillin-Pot Clavulanate 875-125 MG 1 tablet Orally every 12 hrs for 10 day(s) Mar, Activebenzonatate 100 mg oral capsule (4 sources)Non-narcotic AntitussiveStart: 05-09-2024 End: 93-37-9952mwfp 1 capsule by mouth three times daily as needed for cough Benzonatate 100 mg capsule Discontinued 100 MG PO Three times daily as needed for cough May 09, 2024 1:00am December 24, 2024 2:08pm1 ml methylPREDNISolone acetate 40 mg/ml injection (17 sources)CorticosteroidStart: 03-09-2024 End: 15-64-0932lqfurmVDORPITkwmfd acetate (DEPO-Medrol) injection 40 mgStart: 03-09-2024 End: 58-21-675505 mg, Intra-articular, Once PRN Procedure, Starting on Sat03/09/24 at 1025, For 1 doseStart: 02-17-2024 End: 44-96-7577dihioiXJJTWJHqudvh acetate (DEPO-Medrol) injection 40 mgStart: 02-17-2024 End: 44-14-442104 mg, Intra-articular, Once PRN Procedure, Starting on Sat02/17/24 at 1157, For 1 doseStart: 11-01-2023 End: 18-64-4983dfvp 1 tablet by mouth onceMethylprednisolone (Medrol (Jean-Claude)) 4 mg tablets,dose pack Discontinued 0 PO per package directions November 01, 2023 12:00am December 28, 2023 11:19am PO PER PKG DIRStart: 23-32-9476Bmwljv 4 MG as directed Orally for 6 days Dec, Not-Taking/PRNTimolol 0.5 % drops (1 source)Start: 11-01-2023 End: 24-05-1875mzrj 0.5 drop(s) into the eye(s) once dailyTimolol 0.5 % drops Discontinued 1 DROPS EYE-BOTH Daily October 31, 2023 11:00pm December 27 10:22amTriamcinolone (3 sources)CorticosteroidStart: 79-98-4021SXRSKNZ - 10 mg Dec, 40 mg valsartan 40 mg oral tablet (20 sources)Angiotensin 2 Receptor BlockerStart: 12-28-2023 End: 93-45-8749rkre 2 tablets by mouth once dailyValsartan 40 mg tablet Discontinued 80 MG PO Daily December 28, 2023 11:20am December 28, 2023 11:22amStart: 12-28-2023 End: 33-26-8126cyiv 80 mg by mouth once dailyValsartan Discontinued 80 MG PO Daily December 28, 2023 11:20am December 28, 2023 11:22amStart: 12-28-2023 End: 72-13-2020mnhj 1 tablet by mouth once dailyValsartan 80 mg tablet Discontinued 80 MG PO Daily December 28, 2023 12:00am December 24, 2024 2:08pmStart: 11-01-2023 End: 13-06-7728zzyb 1 tablet by mouth once dailyValsartan 40 mg tablet Discontinued 40 MG PO Daily November 01, 2023 12:00am December 28, 2023 11: 22amStart: 10-10-2020 End: 81-85-9498gqky 1 tablet by mouth once dailyValsartan 80 mg tablet Active 80 MG PO Daily December 28, 2023 12:00am Complies with drug therapytake 1 tablet by mouth every twelve hoursValsartan 40 MG 1 tablet Orally Twice a day Active Problems Active Problems Problem ClassificationProblemDateDocumented DateEpisodic/ChronicAnxiety disorders (1 source)Anxiety disorder, unspecified; Translations: [Anxiety disorder, unspecified]Onset: 58-62-1908GozzyhfSrdqtfr kidney disease (3 sources)Chronic renal failure; Translations: [Chronic kidney disease, unspecified]Onset: 131048-83-5468QwzqibdXlwxbzc obstructive pulmonary disease and bronchiectasis (5 sources)Bronchitis; Translations: [Bronchitis, not specified as acute or chronic]17-74-3478SevxwxviPbaufaztxct and hemorrhagic disorders (1 source)Thrombocytopenia, unspecified; Translations: [THROMBOCYTOPENIA UNSPECIFIED]Onset: 36-72-7110CsuozdoC Codes: Natural/environment (2 sources)Bitten or stung by nonvenomous insect and other nonvenomous arthropods, initial encounter; Translations: [Insect bites]02-40-7963Kyzecrcr Esophageal disorders (5 sources)Laryngopharyngeal reflux; Translations: [Gastro-esophageal reflux disease without esophagitis]Onset: 475115-51-1548AulyrkzCavviwqjx hypertension (20 sources)Essential (primary) hypertension; Translations: [Essential hypertension]Onset: 979681-85-1470LnilkbeKwlkquskyjmeq symptoms and ill- defined conditions (20 sources)Delay when starting to pass urine; Translations: [Microscopic hematuria]Onset: 410956-91-7681DjiaxmjeVepjwiwu (2 sources)Glaucoma; Translations: [Unspecified glaucoma]Onset: 07-01-2024 76-33-3688UupzoogCwozoaowgly of prostate (20 sources)Benign prostatic hypertrophy with outflow obstruction; Translations: [Benign prostatic hyperplasia with lower urinary tract symptoms]Onset: 52-43-4990ZbrcideRcmgmyagurigw mental health disorders (2 sources)Chronic insomnia; Translations: [Psychophysiologic insomnia] 04-13-0891EwzjqxeUxeoeyggieuzoe (15 sources)Arthritis of left glenohumeral joint; Translations: [Primary osteoarthritis, left shoulder]Onset: 729992-95-2844JcvobwbWkftu circulatory disease (1 source)Elevated blood-pressure reading, without diagnosis of hypertension EpisodicOther diseases of kidney and ureters (1 source)Urinary tract obstruction; Translations: [Other obstructive and reflux uropathy]Onset: 45-60-1334BgcjhhddAibey endocrine disorders (5 sources)Testicular hypofunction; Translations: [Testicular hypofunction] Onset: 22-25-9532InlbapbEozeb endocrine disorders (20 sources)Male hypogonadism; Translations: [Testicular hypofunction]Onset: 671163-38-4867OqwqrtcHptay endocrine disorders (6 sources)Testicular hypofunction; Translations: [TESTICULAR HYPOFUNCTION] Onset: 92-86-3713XzwfcowKtqfw hematologic conditions (1 source)Secondary polycythemia; Translations: [Secondary polycythemia]Onset: 89-39-4823DzzvclzmLotya lower respiratory disease (2 sources)Apnea; Translations: [Apnea, not elsewhere classified]12-24-2024 EpisodicOther male genital disorders (5 sources)Yydmsaiyc89-83-1120FesduewAkhua male genital disorders (16 sources)Male erectile dysfunction, unspecified; Translations: [Impotence of organic origin]Onset: 808488-69-7360EljcbduUlbok non-traumatic joint disorders (8 sources)Disorder of shoulder; Translations: [Other specified joint disorders, left shoulder]31-20-3181TlyykzicAmvfo non-traumatic joint disorders (4 sources)Pain in left shoulder; Translations: [Pain in joint, shoulder region] 77-12-0402AzzweaxvThoba nutritional; endocrine; and metabolic disorders (20 sources)Body mass index 30+ - obesity; Translations: [Body mass index (BMI) 30.0-30.9, adult]Onset: 260166-87-9004TsyjvvaFrnez upper respiratory disease (18 sources)Seasonal allergic rhinitis; Translations: [Other seasonal allergic rhinitis]Onset: 168967-76-0274GiycvclSnafp upper respiratory disease (3 sources)Seasonal allergy; Translations: [Other seasonal allergic rhinitis] 79-81-4683PhqynjkIsqcd upper respiratory infections (3 sources)Sinusitis; Translations: [Chronic sinusitis, unspecified]Onset: 188914-92-0130OlxyyvsKgruw upper respiratory infections (9 sources)Acute pharyngitis, unspecified; Translations: [Acute pansinusitis, unspecified]EpisodicPoisoning by nonmedicinal substances (8 sources)Bee sting; Translations: [Toxic effect of venom of bees, accidental (unintentional), initial encounter]09-22-8148UugogtwaIfsylgth codes; unclassified (5 sources)Sleep sviyz91-98-8542PgdzfvlObfaawgr codes; unclassified (6 sources)Obstructive sleep apnea syndrome; Translations: [Obstructive sleep apnea (adult) (pediatric)]Onset: 867616-09-9677ZqafzyoYsarwfyh codes; unclassified (1 source)Sleep apnea, unspecified; Translations: [Sleep apnea, unspecified] Onset: 77-79-5128NwyssjfQfxvvqpi codes; unclassified (1 source)Obstructive sleep apnea (adult) (pediatric); Translations: [Obstructive sleep apnea (adult) (pediatric)]Onset: 88-02-8576PgflmmeBnrxgvcr codes; unclassified (7 sources)Insomnia; Translations: [Insomnia, unspecified]Onset: 07-01-2024 36-47-9829NwusunlpXvktvdjd codes; unclassified (1 source)Insomnia, unspecified; Translations: [Insomnia, unspecified]Onset: 62-58-2639KgzcdsctZzyjjythi-related disorders (2 sources)Hypnotic dependence; Translations: [Sedative, hypnotic or anxiolytic dependence, uncomplicated]90-52-0844YpvxxifLtyhtnp disorders (1 source)Hypothyroidism, unspecified; Translations: [HYPOTHYROIDISM UNSPECIFIED]Onset: 04-92-5394MalslmwWsifuajdkife (5 sources)Asymptomatic microscopic wzflpgerj76-42-2950Bvbxchuruwuu (5 sources)Drug therapy erslhpa41-79-9062 Past or Other Problems Problem ClassificationProblemDateDocumented DateEpisodic/Chronic Administrative/social admission (16 sources)First encounter by subject; Translations: [Persons encountering health services in other specified circumstances]Onset: EpisodicOther aftercare (16 sources)Drug therapy finding; Translations: [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 of 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]Onset: 355750-63-7967FfeotmctFzecj hematologic conditions (16 sources)Erythrocytosis; Translations: [Secondary polycythemia]Onset: 092596-36-0708BnrhjumdNlhgs nervous system disorders (14 sources)Gordon's palsy; 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]Onset: 01-09-2024 54-68-6285RjxulwfoApsaq screening for suspected conditions (not mental disorders or infectious disease) (20 sources)Patient encounter status; Translations: [Encounter for screening for lipoid disorders]Onset: 511861-81-3022MyryhvizVakbjnlnsugj (1 source)Contact with and (suspected) exposure to covid-19 Z20.822 Results Test NameValueInterpretationReference RangeFacilityOutside Recordson 02-08-2025 Outside [id number]#1.00OTGTIFFNormal [facility] HospitalAmbulatory Visit Summaryon 82-12-4395Pmoqsoexul Visit Summary Ambulatory Visit Summary LAMONT GOVEA [...] In 1 year Where: [address] [facility] [place] [address] Medications What How Much When [...] Your health care prov (more content not included)...[facility] 59-88-1024WgvhmifmaJxgypyfhv From: Lorri Metz To: EU - Administrative; Sent: 10/12/2024 13:45:33 EDT Show up: 06/30/2025 13:44:00 EDT Subject: Ambulatory Reminder Due Date/Time: 10/12/2025 13:43:00 EDT Reminder/Recall Patient was seeing Ewa Richmond. He is needing a 1 yr f/u w/ PSA which is due around 10/12/2025. Please get him scheduled.[facility] Urology Office/Clinic Noteon 74-55-4940Oftkkej Office/Clinic NoteUrology Office/Clinic Note Chief Complaint 1 [...] E&M of Est. Patient Moderate 30-39 Min 34381 Hemoglobin and Hematocrit Hepatic Function Panel Lipid Panel PSA Screen, Total Testosterone Level Total Urnls Dip Stick Auto w/o Microscopy POC 99436 2. BPH with urinary obstruction (N40.1: Benign [...] E&M of Est. Patient Moderate 30-39 Min 10383 Other obstructive and reflux uropathy (N13.8: Other obstructive and reflux uropathy) Follow-up With When Contact Information MAXIMILIANO MAIER, EWA Zapien, URL In 1 year [address] [place] [address] Additional Instructions: Patient Education [...] Negative (10/12/24 1 (more content not included)... [facility] HospitalComment on above:Result Comment: Electronically Signed By: EWA RICHMOND PA-Cbr\Date and Time Signed: 10/12/2512:49 EDTLab - Other Lab Resultson 39-84-9485Xxu - Other Lab Results [id number] Outside Recordson 93-97-6813Vzkecko Records [id number]#1.00OTOhio[facility] Doctors Hospital Outside Recordson 33-69-7655Kgjtzsq Records [id number]#1.00OTOhioHealth Doctors HospitalNo Panel Informationon 68-06-3480IqnesBrii Oconnor NP 03/09/2024 10:34 AM L Inj/Asp: [...] and draped in the usual sterile fashion. [facility] Panel Informationon 61-34-1206QdscoBrii Oconnor NP 02/17/2024 9:46 PM L Inj/Asp: [...] and draped in the usual sterile fashion. [facility] Shoulder - left 2 Viewson 97-56-4813Iddxfnh Result: Xrays AP, axillary and y-scapula of the left shoulder performed on February 17, 2024 demonstrates bone on bone glenohumeral joint. Narrowing of the ac joint in addition. No fractures noted. Humerus centered within the glenoid. There is abnormal glenoid morphology. Impression Advanced arthritis of the glenohumeral joint. Brii Oconnor [facility] HealthcareRadiology Study observation (narrative)[facility] Shoulder - left 2 ViewsOrdered By: Narciso Zarate on 02-17-2024 [facility] Work Phone: Ambulatory Visit Summaryon 37-62-8883Hdhvpaxxfz Visit SummaryAmbulatory Visit Summary LAMONT GOVEA :1945 [...] Every 5 days Male hypogonadism Pickup at [facility] Unchanged tadalafil (Cialis 5 mg oral tablet) 1 Tablets By Mouth Every day Unchanged timolol ophthalmic (Timolol GFS 0.5% Gel) Every day Unchanged valsartan (valsartan 80 mg Tab) By Mouth Every day Unchanged zolpidem (Ambien CR 12.5 mg Tab-ER) 1 Tablets By Mouth Once a day (at bedtime) as needed for for sleep Pharmacy Information [facility]: [address] [place] [id number] [phone] What When Comments Stop Taking aspirin Stop [...] you for choosing us for your care. [facility] HospitalUrology Office/Clinic Noteon 74-18-7578Jtrinck Office/Clinic NoteUrology Office/Clinic Note Chief Complaint 1yr [...] Contact Information MAXIMILIANO MAIER, EWA Zapien, URL [address] [facility] [place] [address] [phone] Additional Instructions: 1 year w/ PSA, LFTs, [...] 10/15/2023 Family History Family (more content not included)...[facility] HospitalComment on above:Result Comment: Electronically Signed By: EWA RICHMOND PA-C\.br\Date and Time Signed: 10/14/2412:49 EDT\.br\Electronically Co-Signed By: Chhaya Mason\.br\Date and Time Co-Signed: 10/15/23 13:43 EDTCOVID + FLU Quick Testingon 35-49-5857CNES-CoV-2 (COVID-19) RNA STEFF+probe Ql (Unsp spec)NegativeTarisa Social[employer] Other COVID + FLU Quick TestingNegativeEast [place] [employer] Other Quick Strepon 03-14-2023S. pyogenes Org specific cx Ql (Throat)NegativeMoneyDesktop Other quick [facility] Other TESTOSTERONE, TOTALon 91-02-7240Coithapbdhmy [Mass/Vol]749 ng/hTAyxaxn080-423XniPremier Health Upper Valley Medical CenterComment on above:Result Comment: Adult male reference interval is based on a population of healthy nonobese males (BMI <30) between 19 and 39 years old. Travison, et.al. JCEM 2017,102;8833-0868. PMID: [id number].Performed By: #### TESTTOT #### [facility] [address] [place] [address] Dr. Lazaro SamTESTOSTERONE, TOTALon 31-91-5131Wbpzfwtxmitz [Mass/Vol]740 ng/dL Bihuus098-107HvfPremier Health Upper Valley Medical CenterComment on above:Result Comment: Adult male reference interval is based on a population of healthy nonobese males (BMI <30) between 19 and 39 years old. Travjackson, et.al. JCEM 2017,102;2247-2062. PMID: [id number].Performed By: #### TESTTOT #### [facility] [address] [place] [address] Dr. Lazaro Torres AUTO DIFFon 85-88-7630MVPH #0.0 103/ulNormal0.0-0.1The [facility] HospitalComment on above:Performed By: #### CBC #### [facility] [address] [place] [address] Dr. Lazaro SamBasophils/100 WBC (Bld)0.4 %Normal0.2-2.0The [facility] Comment on above:Performed By: #### CBC #### [facility] [address] [place] [address] Dr. Willis ChangEShey #0.1 103/ulNormal0.0-0.7The [facility] HospitalComment on above: Performed By: #### CBC #### [facility] [address] [place] [address] Dr. Lazaro Brayosinophils/100 WBC (Bld)0.6 %Critically low0.9-7.0The [facility] HospitalComment on above:Performed By: #### CBC #### [facility] [address] [place] [address] Dr. Lazaro Brayrythrocyte distribution width (RBC) [Ratio]13.7 %Soknsu47.0-15.0 The [facility] HospitalComment on above:Performed By: #### CBC #### [facility] [address] [place] [address] Dr. Lazaro SamHematocrit (Bld) [Volume fraction]52.4 %Zwftdl55.0-54.0The [facility] HospitalComment on above:Performed By: #### CBC #### [facility] [address] [place] [address] Dr. Lazaro SamHemoglobin (Bld) [Mass/Vol]17.3 g/yJTtougp16.0-18.0The [facility] HospitalComment on above:Performed By: #### CBC #### [facility] [address] [address] [address] Lazaro Suarez #0.03 10e3/ulNormal0.00-0.03The [facility] HospitalComment on above:Performed By: #### CBC #### [facility] [address] [place] [address] Dr. Lazaro Suarez %0.4 %Normal0.0-0.5The [facility] HospitalComment on above: Performed By: #### CBC #### [facility] [address] [place] [address] Dr. Lazaro FunesDeng #1.5 103/ulNormal1.2-3.8The [facility] HospitalComment on above:Performed By: #### CBC #### [facility] [address] [place] [address] Dr. Lazaro Funeshocytes/100 WBC (Bld)18.7 %Critically low20.5-60.0The [facility] HospitalCommunson healthcare [facility] on above:Performed By: #### CBC #### [facility] [address] [place] [address] Dr. Lazaro VarnerUAL DIFF REQNONormalThe [facility] HospitalComment on above: Performed By: #### CBC #### [facility] [address] [place] [address] Dr. Lazaro Coyne (RBC) [Entitic mass]29.7 ldPvtepv81.9-34.0The [facility] HospitalComment on above:Performed By: #### CBC #### [facility] [address] [place] [address] Dr. Lazaro Coyne (RBC) [Mass/Vol]33.0 g/aGCbqhnq88.9-35.2The [facility] HospitalComment on above:Performed By: #### CBC #### [facility] [address] [place] [address] Dr. Lazaro Coyne (RBC) [Entitic vol]90.0 mVCvvqbe48.0-94.0The [facility] HospitalComment on above:Performed By: #### CBC #### [facility] [address] [address] [address] Lazaro Britton #0.6 103/ulNormal0.3-0.8The [facility] HospitalComment on above:Performed By: #### CBC #### [facility] [address] [address] [address] Lazaro Diasocytes/100 WBC (Bld)7.7 %Normal1.7-12.0The [facility] Comment on above:Performed By: #### CBC #### [facility] [address] [place] [address] Dr. Lazaro Tubbs #5.8 103/ulNormal1.4-6.5The [facility] HospitalComment on above:Performed By: #### CBC #### [facility] [address] [place] [address] Dr. Lazaro Porrasutrophils/100 WBC (Bld)72.2 %Ojangg21.0-75.0The [facility] HospitalComment on above:Performed By: #### CBC #### [facility] [address] [place] [address] Dr. Lazaro Rossi mean volume (Bld) [Entitic vol]9.1 fLCritically low 9.5-13.5The [facility] HospitalComment on above:Performed By: #### CBC #### [facility] [address] [place] [address] Dr. Lazaro SamPLT162 103/zgZbvjyk809-170Hdk [facility] HospitalComment on above: Performed By: #### CBC #### [facility] [address] [place] [address] Dr. Lazaro SamRBC5.82 106/ulNormal4.70-6.10The [facility] HospitalComment on above:Performed By: #### CBC #### [facility] [address] [place] [address] Dr. Lazaro SamWBC8.1 103/ulNormal4.0-11.0The [facility] HospitalComment on above: Performed By: #### CBC #### [facility] [address] [address] [address] Lazaro Taylor 14(COMP METB)on 13-12-6065Xtikgkh [Mass/Vol]3.7 g/dLNormal 3.4-5.0The [facility] HospitalComment on above:Performed By: #### CMP, TSH #### [facility] [address] [address] [address] Lazaro SamAlbumin/Globulin [Mass ratio]0.9 {ratio}NormalThe [facility] HospitalComment on above:Performed By: #### CMP, TSH #### [facility] [address] [address] [address] Lazaro Briseno [Catalytic activity/Vol]72 U/ZQzlulz31-043Grb [facility] HospitalComment on above:Performed By: #### CMP, TSH #### [facility] [address] [place] [address] Dr. Lazaro Nicole [Catalytic activity/Vol]42 U/ODilmjx55-88Uei [facility] HospitalComment on above:Performed By: #### CMP, TSH #### [facility] [address] [address] [address] Lazaro Barth gap [Moles/Vol]13.4 mmol/LNormalThe [facility] Comment on above:Performed By: #### CMP, TSH #### [facility] [address] [address] [address] Lazaro SamAST [Catalytic activity/Vol]22 U/OCogjvp60-94Ebj [facility] HospitalComment on above:Performed By: #### CMP, TSH #### [facility] [address] [address] [address] Lazaro SamBilirubin [Mass/Vol]0.6 mg/dLNormal0.2-1.0The [facility] Comment on above:Performed By: #### CMP, TSH #### [facility] [address] [address] [address] Lazaro SamCalcium [Mass/Vol]8.8 mg/dLNormal8.5-10.1The [facility] Comment on above:Performed By: #### CMP, TSH #### [facility] [address] [address] [address] Lazaro SamChloride [Moles/Vol]104 mmol/DFfuxzf08-188Ktz [facility] Comment on above:Performed By: #### CMP, TSH #### [facility] [address] [address] [address] Lazaro SamCO2 [Moles/Vol]26.5 mmol/IXenxlh20.0-32.0The [facility] Comment on above:Performed By: #### CMP, TSH #### [facility] [address] [address] [address] Lazaro SamCreatinine [Mass/Vol]1.30 mg/dLNormal0.70-1.30The [facility] HospitalComment on above:Performed By: #### CMP, TSH #### [facility] [address] [address] [address] Lazaro BrayGFR-AF IRAQI>60Normal>=60The [facility] HospitalComment on above:Performed By: #### CMP, TSH #### [facility] [address] [address] [address] Lazaro BrayGFR-NON AF XIVDGWIB14 mL/min/1.89x8Mtkolwtxum low>=60The [facility] HospitalComment on above:Performed By: #### CMP, TSH #### [facility] [address] [address] [address] Lazaro SamGlobulin (S) [Mass/Vol]3.9 g/dLNormalThe [facility] HospitalComment on above:Performed By: #### CMP, TSH #### [facility] [address] [address] [address] Lazaro SamGlucose [Mass/Vol]117 mg/dLCritically msys12-995Sau [facility] HospitalComment on above:Performed By: #### CMP, TSH #### [facility] [address] [address] [address] Lazaro SamPotassium [Moles/Vol]3.9 mmol/LNormal3.5-5.1The [facility] Comment on above:Performed By: #### CMP, TSH #### [facility] [address] [place] [address] Dr. Lazaro SamProtein [Mass/Vol]7.6 g/dLNormal6.4-8.2[facility] Comment on above:Performed By: #### CMP, TSH #### [facility] [address] [place] [address] Dr. Lazaro SamSodium [Moles/Vol]140 mmol/YDxkbrd265-787PeyPremier Health Upper Valley Medical Center Comment on above:Performed By: #### CMP, TSH #### [facility] [address] [place] [address] Dr. Lazaro Trejo nitrogen [Mass/Vol]23.0 mg/dLCritically high7.0-18.0Prem[facility] Medical CenterComment on above:Performed By: #### CMP, TSH #### [facility] [address] [place] [address] Dr. Lazaro Trejo nitrogen/Creatinine [Mass ratio]17.7 mg/mgNoAvita Health System Bucyrus HospitalComment on above:Performed By: #### CMP, TSH #### [facility] [address] [place] [address] Dr. Lazaro Carr 88-34-4859M7 [Mass/Vol]7.70 ug/dLNormal4.50-12.10The [facility] HospitalComment on above:Performed By: #### T4 #### [facility] [address] [place] [address] Dr. Lazaro Hernadez 53-72-1543FCL5.079 uIU/mLNormal0.358-3.740Prem[facility] Health [facility] Medical CenterComment on above:Performed By: #### CMP, TSH #### [facility] [address] [place] [address] Dr. Lazaro Vu [facility] BELOWUniversity Hospitals Portage Medical CenterComment on above: Result Comment: <0.34 UIU/ml HYPERTHYROID 0.34-5.60 UIU/ml EUTHYROID >5.60 UIU/ml HYPOTHYROIDPerformed By: #### CMP, TSH #### [facility] [address] [address] [address] Lazaro SamTESTOSTERONE, FREE,DIRECT, TOTALon 85-79-0918Pybt Testosterone(Direct)9.4 pg/mLNormal6.6-18.1The [facility]aconess Hospitalment on above:Result Comment: Performed at: BNPerformed By: #### TESTFRD #### [facility] [address] [place] [address] Dr. Lazaro SamTestosterone [Mass/Vol]328 ng/lAJzqazh559-890Hih [facility] HospitalComment on above:Result Comment: Adult male reference interval is based on a population of healthy nonobese males (BMI <30) between 19 and 39 years old. martha Roman.al. JCEM 2017,102;9493-8153. PMID: [id number]. Performed at: CBPerformed By: #### TESTFRD #### [facility] [address] [place] [address] Dr. Lazaro SamCNOVSPon 77-78-3598RHVNLEMzcgf (SP) Office (HEMACL) LAMONT GOVEA ([id number]) 1945 M Date Time Provider Department 06/19/18 [...] - CBC + DIFF (FOR REMOTE [facility] USE) Narciso Marinelli MD Referring Provider: RUPERTO BLAS [[id number]] Allergies As of Date: 06/19/2018 (No Known Allergies) Date Reviewed: 06/19/2018 Reviewed by: Melvi Valle - Fully Assessed Reason for Visit: polycythemia [Other] Cmt: follow up Primary Visit Diagnosis:Erythrocytosis [D75.1] Order(s):CBC + DIFF (FOR REMOTE [facility] USE) [SQRCBCDF] Order #: [id number] STANDING Disposition: Return in about 1 year [...] Encounter Status:Closed by NARCISO MARINELLI MD on 06/19/18[facility] Hospitalon 03-70-6286Wenphfw mass concHNO ID: [id number] Author: Narciso Marinelli Service: ? Author Type: [...] - CBC + DIFF (FOR REMOTE [facility] USE) Narciso Marinelli MDNormalCSouthwest General Health CenterRemote CBCDIF (for [facility] use only)on 64-06-7562Kbj Baso<0.94Sbrqzd0.00-0.10The [facility] Hospital At SouthwoodsAbs [place] 1.02 k/uLHigh0.00-0.86The [facility] Hospital At SouthwoodsAbs Neut5.04 k/uLNormal1.45-7.50 [facility] SouthwoodsBasophils/100 WBC (Bld)0.2 %NormalThe Surgical Hospital At SouthwoodsEosinophils #/vol (Bld)0.40 10*3/uLNormal0.00-0.45The [facility] Hospital [facility] SouthwoodsEosinophils/100 WBC (Bld)4.5 %NormalThe [facility] Hospital [facility] Southwoods Erythrocyte distribution width Ratio (RBC)13.3 %Uurdrq86.5-15.0The [facility] Hospital [facility] SouthwoodsHematocrit Volume Fraction (Bld)48.8 %Vucapw15.0-51.0The [facility] Hospital [facility] SouthwoodsHemoglobin mass conc (Bld)16.8 g/nWOmhtkj18.0-17.0The [facility] SouthwoodsLymphocytes #/vol (Bld)2.43 10*3/uLNormal1.00-4.00The [facility] SouthwoodsLymphocytes/100 WBC (Bld)27.3 %NormalOhioHealthH Entitic mass (RBC)30.5 yTNoxwuk37.0-34.0OhioHealthHC mass conc (RBC)34.4 g/fXEqucfx49.5-36.0OhioHealthV Entitic volume (RBC) 88.6 lCPqsuui63.0-100.0The [facility] SouthwoodsMonocytes/100 WBC (Bld)11.4 % NormalThe Surgical Hospital At SouthwoodsNeutrophils/100 WBC (Bld)56.6 %NormalThe Surgical Hospital At SouthwoodsPlatelet mean volume Entitic volume (Bld)9.6 fLNormal9.0-12.7 The [facility] SouthwoodsPlatelets #/vol (Bld)152 10*3/mHNvcimo202-142Cxtudibhc Clinic Clefirelands regional medical center south campusRBC #/vol (Bld)5.51 10*6/uLNormal4.20-6.00The [facility] Hospital [facility] SouthwoodsWBC #/vol (Bld)8.91 10*3/uLNormal3.70-11.00[facility] BCR-ABL Qualitativeon 30-17-4356XMJ-ABL Qualitative(NOTE)[facility] on above:Result Comment: Please refer to [facility] Surgical Pathology report, By: #### CALR, BCRQL #### [facility] [address] [place], [place] [address] CALR Exon 9 Mutationon [id number] Result/InterpDuplicate request NormalSt. John of God Hospital on above:Result Comment: Account Credited SEE MPNP. DMCKNIGHT 05 30 2018Performed By: #### CALR, BCRQL #### [facility] Laboratories [address] [id number] ZCIO Reviewed byDuplicate requestAdams County Hospital Comment on above:Result Comment: Account Credited SEE MPNP. DMCKNIGHT 05 30 2018Performed By: #### CALR, BCRQL #### [facility] Laboratories [address] [address] KXTV Specimen TypeDuplicate requestNoMercy Health Fairfield Hospital Comment on above:Result Comment: Account Credited SEE MPNP. DMCKNIGHT 3 2018Performed By: #### CALR, BCRQL #### [facility] [address] [address] FHZSsw 23-96-8665IBGBNcvzod Text Dear Lamont Govea: How to activate your [facility] [employer] Account 1. Visit the [employer] Signup page at [email or web address] 2. Identify yourself using your one-time use activation code: [id number] 3. Follow the on-screen prompts to choose [...] information on the Identify Yourself Form at [email or web address] , click Next. Create your login and password, choose a [employer] ID and password that will be easy for you to use, but impossible for anyone else to guess. Pick a security question that will assist you in the event you forget your password the next time you log-on. If you have difficulty activating your account, please call our [employer] helpline at [phone] or toll free at . We hope you enjoy using [employer]! Kindest Regards, [facility] [employer] TeamNoMercy Health Fairfield HospitalCNOVSPon 05-29-2018 CNOVSPVisit (SP) Office (HEMACL) LAMONT GOVEA ([id number]) 1945 M Date Time Provider Department 05/29/18 [...] viscosity is hematocrit with the risk of PA, CVA, Budd Chiari, etc all increased proportionately [...] GRAN CT + CBC (FOR REMOTE [facility] USE) - ERYTHROPOIETIN/EPO - HEPATIC FUNCTION PNL [...] Narciso Marinelli MD Referring Provider: MURALI CHAVEZ [[id number]] Allergies As of Date: 05/29/2018 (No Known Allergies) Date Reviewed: 05/29/2018 Reviewed by: Melvi Valle - Fully Assessed Reason for Visit: high HGB [Other] Cmt: new patient consultation ref. Dr. Chavez Primary Visit Diagnosis:Polycythemia [D75.1] Other Visit Diagnosis:Erythrocytosis [D75.1] Order(s):JAK2 V617F MUTATION BLOOD [SQJAK2] Order #: [id number] FUTURE BCR-ABL QUALITATIVE MULTIPLEX RT-PCR [SQBCRQL] Order #: [id number] FUTURE CALR EXON 9 MUTATION ANALYSIS BLOOD [SQCALR] Order #: [id number] FUTURE MPL MUTATION ANALYSIS BLOOD [SQMPL] Order #: [id number] FUTURE ABS GRAN CT + CBC (FOR REMOTE [facility] USE) [SQRAGCBC] Order #: [id number] FUTURE ERYTHROPOIETIN/EPO [SQEPO] Order #: [id number] FUTURE HEPATIC FUNCTION PNL [SQHFP] Order #: [id number] FUTURE TESTOSTERONE TOTAL [SQTESTO] Order #: [id number] FUTURE Disposition: Return in about 3 weeks [...] Encounter Status:Closed by NARCISO MARINELLI MD on 05/29/18NormalCSouthwest General Health CenterEPOon 64-82-9566OKR1.8 mIU/mLNormal2.6-18.5CSouthwest General Health Center Comment on above:Result Comment: Test analyzed by the [employer] DxI method. Performed By: #### JAK2, EPO, HFP #### [facility] [address] [address] Qdryfcy Functn Panelon 29-28-9964Acmmxdx mass conc4.6 g/dLNormal 3.9-4.9CSouthwest General Health CenterComment on above:Performed By: #### JAK2, EPO, HFP #### [facility] [address] [address] ZDE enzyme act/vol60 U/WHnbkgw64-723XkcpbjszlThe [facility] Hospital [facility]woods Comment on above:Performed By: #### JAK2, EPO, HFP #### [facility] [address] [address] SVA enzyme act/vol36 U/JGjbsjc97-47FhqjbtrntSt. John of God Hospital on above:Performed By: #### JAK2, EPO, HFP #### [facility] [address] [id number] TIH enzyme act/vol29 U/IEnvmiw00-68TnjmzzinuSt. John of God Hospital on above:Performed By: #### JAK2, EPO, HFP #### [facility] [address] [address] Fulakfkwi mass conc0.5 mg/dLNormal0.2-1.3CSouthwest General Health Center Comment on above:Performed By: #### JAK2, EPO, HFP #### [facility] [address] [address] Atkfnvcdk,Conjugated<0.2Normal<0.2CTrumbull Memorial Hospital on above:Performed By: #### JAK2, EPO, HFP #### [address] [address] Ffhlhbu mass conc7.6 g/dLNormal6.3-8.0[facility] Comment on above:Performed By: #### JAK2, EPO, HFP #### [address] [address] CBS0 V617F Mutationon [id number] V617F InterpDuplicate request NormalSt. John of God Hospital on above:Result Comment: Account Credited SEE MPNP. CK 2019Performed By: #### JAK2, EPO, HFP #### [address] [address] QWB6 V617F Spec TypeDuplicate requestNoChildren's Hospital for Rehabilitation on above:Result Comment: Account Credited SEE MPNP. DMCK 2019Performed By: #### JAK2, EPO, HFP #### [address] [address] Nvrxgwibk Path RevDuplicate requestNoMercy Health Fairfield Hospital Comment on above:Result Comment: Account Credited SEE MPNP. CK 2019Performed By: #### JAK2, EPO, HFP #### [address] [address] YID Mutationon [id number] Mutation InterpDuplicate requestNormal [facility] on above:Result Comment: Account Credited SEE MPNP. CK 2019Performed By: #### MPL #### [address] [address] Fjldcbbhvva Neopl Pnl Bloodon 68-70-6725Cjcph Neopl Pnl Bld(NOTE) [facility] on above:Result Comment: Please refer to [facility] Surgical Pathology report, .Performed By: #### MPNP ####[facility] [address] [place], [place] [phone] 27-85-9129Ldwdknb mass concHNO ID: [id number] Author: Narciso Marinelli Service: (none) Author Type: [...] viscosity is hematocrit with the risk of PA, CVA, Budd Chiari, etc all increased proportionately [...] PNL - TESTOSTERONE TOTAL Narciso E Fanning, MDNormalCSouthwest General Health CenterRemote Abs Gran + CBC (for [facility] use only)on 07-93-0947Yeeav Gran Count3.85 k/uLNormal1.45-7.50The [facility] Hospital At SouthwoodsErythrocyte distribution width Ratio (RBC)13.6 %Nejzyg39.5-15.0 The [facility] Hospital At SouthwoodsHematocrit Volume Fraction (Bld)49.6 %Clsdil75.0-51.0 The [facility] Hospital [facility] SouthwoodsHemoglobin mass conc (Bld)17.1 g/pPZsye59.0-17.0 [facility]HealthH Entitic mass (RBC)30.5 wDZdtvjw06.0-34.0OhioHealthHC mass conc (RBC)34.5 g/rOFgfudk17.5-36.0OhioHealthV Entitic volume (RBC)88.6 aHArpqaj71.0-100.0The [facility] At SouthwoodsPlatelet mean volume Entitic volume (Bld)9.9 fLNormal9.0-12.7CSouthwest General Health CenterPlatelets #/vol (Bld)146 10*3/zQVgb133-583ErjyxmpwgThe Surgical Hospital At SouthwoodsRBC #/vol (Bld)5.60 10*6/uLNormal4.20-6.00The [facility] Hospital At SouthwoodsWBC #/vol (Bld)6.86 10*3/uLNormal3.70-11.00The [facility] Hospital At SouthwoodsSURGICAL PATHOLOGYon 21-37-4408XZNWJHLE PATHOLOGYPROCEDURE REPORT Specimen originated from [facility] Specimen #: [id number] Submitting Physician: NARCISO MARINELLI MD SPECIMEN SUBMITTED [...] this sample, and cDNA prepared by reverse corporate legal intern. Multiplex RT-PCR studies were performed using fluorescently [...] developed and its performance characteristics determined by [facility]'s [facility] [place] ([facility]). It has not been cleared or approved by the FDA. -[facility] is regulated under CLIA as qualified to perform high-complexity testing. This test is used for clinical purposes. It should not be regarded as investigational or for research. As Reviewed by: Narciso Luong M.D., Ph. D. [facility]/brynn 06/10/2018 Procedure Pathologist: Narciso Luong M.D. Electronic [...] sequencing was performed on the Illumina instrument ([place], [place]). A customized bioinformatic pipeline was used to align the sequencing reads to the reference human genome (GRCh37/hg19). Benign common polymorphisms are not reported. Limitations: Sequence changes outside the analyzed regions, including intronic, noncoding, and splice-site variants, will not be identified by this test. The lower limit of detection of this assay is approximately 1% allele proportion for the JAK2 Zcm256Owd single nucleotide variant and approximately 5% allele [...] developed and its performance characteristics determined by [facility]'s [facility] [place] ([facility]). It has not been cleared or approved by the FDA. [facility] is regulated under CLIA as qualified to perform high-complexity testing. This test is used for clinical purposes. It should not be regarded as investigational or for research. As Reviewed by: Quin Hill M.D. Ph.D. HENRIK/ap [id number] References: Temi DA, Syd A, Davidertawny R, [...] 05/30/2018 Submitted: NARCISO MARINELLI MD Location: [facility] Diagnostic interpretation performed at [facility] [place], [address] [place] [address].NormalThe Surgical Hospital At SouthwoodsTestosteroneon 05-29-2018 Testosterone mass nmmg598 ng/mSXiggyb893-957JejxyjdkqTrumbull Memorial Hospital on above:Result Comment: A testosterone level in the 193-320 ng/dL range with associated clinical symptoms is considered low and may indicate hypogonadism (from NEJ 2010 363:123-135). Results >320 ng/dL are considered normal.Performed By: #### TESTO ####[facility] [place] [address] [place], [place] [phone] Vital Signs Date TimeVital SignValuePerforming XiuhglojbWwzuxuph41-80-8796 14:11-0400Body vveznp255.72 [facility] Campussamson House DO Work Phone: 1([phone] [place], [place] 8122709-25-2025 14:11-0400 Body mass index (BMI) [Ratio]29.6 kg/t8Ifeangr House DO Work Phone: 1(381)[address] [place], [place] 8122709-25-2025 14:11-0400 Body vporbv79.45 kgCaldwell Medical Centersamson House DO Work Phone: 1(523)[address] [place], [place] 8122709-25-2025 14:11-0400 Diastolic blood ovygvwlg20 mm[Hg]Frederick House DO Work Phone: 1(089)[address] [place], [place] 8122709-25-2025 14:11-0400 Heart rate78 /minSheilarsamson House DO Work Phone: [phone])[address] [place], [place] 8122709-25-2025 14:11-0400 SaO2% (BldA) [Mass fraction]96 %Frederick House DO Work Phone: 1(494)[address] [place], [place] 8122709-25-2025 14:11-0400 Systolic blood cggnjfyp640 mm[Hg]Frederick House DO Work Phone: 1(455)[address] [place], [place] 8122707-10-2025 11:36-0400 Body epzmoq313.72 [facility] DO Work Phone: [phone] [place], [place] 8122707-10-2025 11:36-0400 Body mass index (BMI) [Ratio]29.5 kg/a5Bnzwhyi House DO Work Phone: 1(470)[address] [place], [place] 8122707-10-2025 11:36-0400 Body zeqdonuqzqt49.2 [degF]Frederick House DO Work Phone: 1(266)[address] [place], [place] 8122707-10-2025 11:36-0400 Body .16 kgCharsamson House DO Work Phone: 1(403)[address] [place], [place] 8122707-10-2025 11:36-0400 Diastolic blood fizexqen14 mm[Hg]Frederick House DO Work Phone: 1(524)[address] [place], [place] 8122707-10-2025 11:36-0400 Heart rate75 /minCharles House DO Work Phone: 1(730)[address] [place], [place] 8122707-10-2025 11:36-0400 Respiratory rate18 /minCharsamson House DO Work Phone: 1(445)[address] [place], [place] 8122707-10-2025 11:36-0400 SaO2% (BldA) [Mass fraction]97 %Frederick House DO Work Phone: 1(231)[address] [place], [place] 8122707-10-2025 11:36-0400 Systolic blood mm[Hg]Frederick Shafer DO Work Phone: 1(428)[address] [place], [place] 8122704-02-2025 10:45-0400 Body .6 cmEda Junior MD Work Phone: [facility] CenterYwxntwinqf35-84-4111 10:45-0400Body mass index (BMI) [Ratio]32.28 kg/j0LdxaruEda Junior MD Work Phone: [facility] CenterEsykxienxi17-77-1323 10:45-0400Body .72 kgEda Junior MD Work Phone: [facility] CenterDqpnpddtft08-12-6228 10:45-0400Diastolic blood svbdrdyr82 mm[Hg]Eda Junior MD Work Phone: [facility] CenterKinvsktdfv50-79-7848 10:45-0400Heart rate68 /min Eda Junior MD Work Phone: [facility] CenterFvdtondyfv17-64-1225 10:45-0400Systolic blood ubztrjhs269 mm[Hg]Eda Junior MD Work Phone: [facility] CenterVwkgadxvbl56-15-7552 09:280500Body .72 [facility]2025 09:28-0500Body mass index (BMI) [Ratio]30.6 kg/t9UpbrrbvpwKettering Health [facility]02-08-2025 09:28-0500Body jfsqtdnnxzy22.4 [degF][facility]02-08-2025 09:28-0500Body olgzat34.34 kgK[facility]02-08-2025 09:28-0500Diastolic blood grjudxkw15 mm[Hg][facility]02-08-2025 09:28-0500 Heart tctz697 /[facility]02-08-2025 09:28-0500 Respiratory rate18 /[facility]02-08-2025 09:28-0500 SaO2% (BldA) [Mass fraction]94 %[facility]02-08-2025 09:28-0500Systolic blood lziodewa680 mm[Hg][facility] 01-09-2024 13:47-0400Body ixnicf489.7 cmJosh Hearn MANAGER SIGN Work Phone: [facility] CenterMgczmtgvsj29-81-5627 13:47-0400Body mass index (BMI) [Ratio]31.17 kg/q2Arphvtyj Hearn MANAGER SIGN Work Phone: [facility] CenterOhxsngxlni57-71-2336 13:47-0400Body temperature 96.21 [degF]Josh Hearn MANAGER SIGN Work Phone: [facility] CenterVwjfpihkkf00-52-1579 13:47-0400Body iuxcle22.99 kgBrittjose Hearn MANAGER SIGN Work Phone: [facility] CenterSdbfbstcxl99-26-6233 13:47-0400Diastolic blood pljqmysu37 mm[Hg]Josh Hearn MANAGER SIGN Work Phone: [facility] CenterJillxjbhjt14-15-9954 13:47-0400Heart rate83 /min Josh Ontiverosk MANAGER SIGN Work Phone: [facility] CenterYckfsqvuwc64-36-6220 13:47-0400Respiratory rate16 /minJosh Hearn MANAGER SIGN Work Phone: [facility] CenterXeuuvkuruv25-79-3112 13:47-0081VhN1% (BldA) [Mass fraction]98 %Josh Ontiverosk MANAGER SIGN Work Phone: [facility] CenterIckkqmgjve23-83-2379 13:47-0400Systolic blood wdrsavgg298 mm[Hg]Josh Ontiverosk MANAGER SIGN Work Phone: [facility] CenterKdqnyilymu46-62-8271 11:16-0400Body slcfuj712.72 cmK[facility]09-28-2024 11:16-0400Body mass index (BMI) [Ratio]30.1 kg/j2DvfxnblcmKettering Health [facility]09-28-2024 11:16-0400Body qflwccytpoo18 [degF][facility]09-28-2024 11:16-0400Body gkuseb60.92 kgK[facility]09-28-2024 11:16-0400Diastolic blood ussdlqnq66 mm[Hg][facility]09-28-2024 11:16-0400 Heart jodn674 /[facility]09-28-2024 11:16-0400 Respiratory rate18 /[facility]09-28-2024 11:16-0400 SaO2% (BldA) [Mass fraction]95 %[facility]09-28-2024 11:16-0400Systolic blood rznwxfig968 mm[Hg][facility] 12-12-2023 14:42-0400Body bwejij605.7 cmJosh Hearn MANAGER SIGN Work Phone: [facility] CenterGliqvstukx90-34-1290 14:42-0400Body mass index (BMI) [Ratio]30.11 kg/x7CqiuypdhJosh Ontiverosk MANAGER SIGN Work Phone: [place] [address]Jkmtjdbalk22-24-9009 14:42-0400Body temperature 97.59 [degF]Josh Ramirezzpatrick MANAGER SIGN Work Phone: [facility] CenterJwecdfnftd53-09-8178 14:42-0400Body ufbgku03.81 kgJosh Campbellpatrick MANAGER SIGN Work Phone: [facility] CenterHlrmwjrfac41-29-8720 14:42-0400Diastolic blood wqrierfs05 mm[Hg]Josh Hearn MANAGER SIGN Work Phone: [facility] CenterKcycflousn85-69-6448 14:42-0400Heart zxgv872 /min Josh Hearn MANAGER SIGN Work Phone: [facility] CenterComment on above:94% H847-68-8208 14:42-0400Systolic blood motyujwz476 mm[Hg]Josh Hearn MANAGER SIGN Work Phone: [facility] CenterWifoufyvqy38-90-4172 14:44-0400Body hzjadd100.72 [facility]08-02-2024 14:44-0400Body mass index (BMI) [Ratio]30.4 kg/o6IpxljqsbyKettering Health [facility]ble08-02-2024 14:44-0400Body apgehlmpctv44.1 [degF][facility]08-02-2024 14:44-0400Body ougtlo60.94 kgK[facility]08-02-2024 14:44-0400Diastolic blood mm[Hg][facility]08-02-2024 14:44-0400 Heart rate80 /[facility]08-02-2024 14:44-0400 Respiratory rate18 /[facility]08-02-2024 14:44-0400 SaO2% (BldA) [Mass fraction]95 %[facility]08-02-2024 14:44-0400Systolic blood mm[Hg][facility] 10-15-2023 12:58-0400Blood Pressure LocationJENNTUBA CITY REG[facility] MAXIMILIANO [facility]07-16-2024 12:58-0400Diastolic blood mbdxsiod73 mm[Hg]EWA RICHMOND [facility]07-16-2024 12:58-0400Heart rate81 /minJENNIFER MAXIMILIANO [facility]07-16-2024 12:58-0400Respiratory rate16 /minJENNIFER MAXIMILIANO [facility]07-16-2024 12:58-0400Systolic blood karbhkqp959 mm[Hg]EWA RICHMOND [facility]12-19-2023 12:05-0500Body jmletq700.72 cmAvarun Isbell Other [facility] [employer] Other 12-19-2023 12:05-0500Body mass index (BMI) [Ratio] 30.62 kg/m2Myrna Isbell Other [facility] Other 12-19-2023 12:05-0500Body ersolqahliu07.9 [degF]Myrna Isbell Other [facility] Other 12-19-2023 12:05-0500Body sauved96.36 kgMyrna Isbell Other [facility] Other 12-19-2023 12:05-0500Diastolic blood yyhpzrit931 mm[Hg]Myrna Isbell Other [facility] Other 12-19-2023 12:05-0500Respiratory rate18 /Alonso Isbell Other [facility] Other 12-19-2023 12:05-8813MlR1% (BldA) [Mass fraction]96 % Myrna Isbell Other [facility] Other 12-19-2023 12:05-0500Systolic blood cwuuoikw285 mm[Hg] Myrna Isbell Other [facility] Other 12-14-2023 13:10-0500Body athbkt063.72 cmAmanda Igor Other [facility] Other 12-14-2023 13:10-0500Body mass index (BMI) [Ratio] 30.41 kg/a6Pnjwwo Igor Other [facility] Other 12-14-2023 13:10-0500Body cyirfwkyrko262.1 [degF] Magnolia Igor Other [facility] Other 12-14-2023 13:10-0500Body secbqn85.72 kgAmanda Igor Other [facility] Other 12-14-2023 13:10-0500Diastolic blood adolxqcz21 mm[Hg] Magnolia Igor Other [facility] Other 12-14-2023 13:10-0500Respiratory rate18 /minAmanda Igor Other [facility] Other 12-14-2023 13:10-0357SxS3% (BldA) [Mass fraction]96 % Magnolia Igor Other [facility] Other 12-14-2023 13:10-0500Systolic blood mm[Hg] Magnolia Costa Other [facility] [employer] Other 07-19-2023 13:35-0400Blood Pressure LocationJENNIFER MAXIMILIANO [facility]07-19-2023 13:35-0400Diastolic blood yrocmmgr856 mm[Hg]EWA MAXIMILIANO [facility]07-19-2023 13:35-0400Heart rate81 /minJENNNIKKY CARRRY [facility]07-19-2023 13:35-0400Systolic blood wljhtffy833 mm[Hg]EWA CARRRY [facility]01-16-2023 14:37-0500Blood Pressure LocationRobert RICE [facility]07-18-2022 14:30-0400Blood Pressure LocationRobert RICE [facility] 07-18-2022 14:30-0400Diastolic blood mm[Hg] Murali RICE [facility] 07-18-2022 14:30-0400Heart rate67 /minRobert RICE [facility] 07-18-2022 14:30-0400Respiratory rate16 /minRobert RICE [facility] [place] 537364-97-7122 14:30-0400Systolic blood hysbulzp425 mm[Hg] Murali CHAVEZ [facility] [place] Encounters Encounter DateEncounter TypeCare ProviderFacilityStart: 02-08-2025 End: 13-05-3561luwuybhdakWitonyyChino Jones MDFacility:[facility] Start: 12-24-2024 End: 07-00-5315srtlpfnbliQmpyyrw Shafer DO Work Phone: [facility] Work Phone: Start: 12-24-2024 End: 88-41-6833Loldlvx encounter procedureEloy Garcia [facility]DM[facility] Work Phone: Start: 12-09-2024 End: 00-29-4054mcqyhsjwosTU CHARLES P HOUSEFacility:[facility] ClinicStart: 11-16-2024 End: 92-33-9268megcxwernpWrvzugs House DO Work Phone: [facility] Work Phone: Start: 11-16-2024 End: 22-51-6713Sbezsmv encounter procedureJun Ayala DO-[facility] [place] Work Phone: Start: 10-12-2024 End: 92-35-8013ikjjmkxxwvSRQUDYBI E PERRYFacility:[facility]vueStart: 10-12-2024 End: 74-80-6529Ductxtf encounter procedureJENNIFER E MAXIMILIANO [facility] start: 38-03-5691sxzpoakeepDFASMDGI PERRYFacility:[facility] [place]vueStart: 10-08-2024 End: 09-92-2027hbvxuuigguUdhbyek House DO Work Phone: [facility] Work Phone: Start: 10-08-2024 End: 78-60-9830Omwubcu encounter procedureSharon Rodriguez SLAGGER-[facility] [place] Work Phone: Start: 51-84-6171Ofa-patient / Non-visitNicole [facility] Out[facility] Work Phone: Start: 07-01-2024 End: 75-69-0504Errthd flowsYamil Junior MD Work Phone: [facility] ENTStart: 07-01-2024 End: 94-07-1858Rsgjpq Benny Junior MD Work Phone: [facility] ENTStart: 07-01-2024 End: 74-10-3294Ogariq outpatient new 45 minutesEda Junior MD Work Phone: [facility] ENTComment on above:LINSEY (obstructive sleep apnea) (Primary Dx); LPRD (laryngopharyngeal reflux disease)Start: 07-01-2024 End: 94-74-6342lfknufzwbrZTWQGW H TIMMISNot AvailableStart: 06-10-2024 End: 87-25-5677ekjrigzphkJVKKQAN P HOUSEFacility:[facility] ClinicStart: 05-14-2024 ambulatoryDO FREDERICK P HOUSEFacility:[facility] ClinicStart: 05-09-2024 End: 21-23-5820nxvmvbpckbDvogcvhkf [facility] Work Phone: Start: 05-09-2024 End: 77-23-5666Obfcxnk encounter procedureFirdru Physician Group-[facility] [place] Work Phone: Start: 03-09-2024 End: 05-04-0145Ytwomp flowsNayeli B Trishing MANAGER SIGN Work Phone: [facility] ORTHOPAEDICSStart: 03-09-2024 End: 15-65-0406Tpdkfb flowsheetMaria B Apling MANAGER SIGN Work Phone: [facility] ORTHOPAEDICSStart: 03-09-2024 End: 83-82-0389Nykwnv outpatient visit 15 minutesMaria B Apling MANAGER SIGN Work Phone: [facility] ORTHOPAEDICSComment on above:Left shoulder pain, unspecified chronicity (Primary Dx); Glenohumeral arthritis, left; Arthritis of left acromioclavicular joint; Impingement of left shoulderStart: 03-09-2024 End: 25-47-4221lrxinouompBIZXZ B APLINGNot AvailableStart: 03-05-2024 End: 46-43-8658SxpwadKyqxnvia Hearn MANAGER SIGN Work Phone: [facility] CWM FMComment on above:Seasonal allergiesStart: 02-17-2024 End: 59-22-4604Gcuwvm flowsheetMaria B Apling MANAGER SIGN Work Phone: [facility] ORTHOPAEDICSStart: 02-17-2024 End: 44-19-6563Umlsdk flowsheetMaria B Apling MANAGER SIGN Work Phone: [facility] ORTHOPAEDICSStart: 02-17-2024 End: 38-41-1499Zkcrip outpatient new 45 minutesMaria B Apling MANAGER SIGN Work Phone: [facility] ORTHOPAEDICSComment on above:Left shoulder pain, unspecified chronicity (Primary Dx); Glenohumeral arthritis, left; Arthritis of left acromioclavicular joint; Impingement of left shoulderStart: 02-17-2024 End: 22-62-6955qngdukvaofKKEXM B APLINGNot AvailableStart: 01-09-2024 End: 35-23-5875Dadabd flowsheetBrittany Hearn MANAGER SIGN Work Phone: [facility]WM FMStart: 01-09-2024 End: 37-45-6526Ukongg flowsheetBrittany Hearn MANAGER SIGN Work Phone: NOVI CWM FMStart: 01-09-2024 End: 71-94-3203Adyhhr outpatient visit 15 minutesJosh Hearn MANAGER SIGN Work Phone: [facility] CWM FMComment on above:Gordon's palsy (Primary Dx) Start: 01-09-2024 End: 43-36-0277lfndgusvmyEZYLSNMR FITZPATRICKNot AvailableStart: 12-31-2023 End: 76-47-7413Ozbiffngt department patient visitJohn [facility] Center [facility]ulatory PPGStart: 12-28-2023 End: 18-06-6207lhxheasyhgZlkytovayWayne HealthCare [facility] Campus Work Phone: Start: 12-28-2023 End: 01-41-9249Pgeyxyt encounter procedureGood [facility] [place] Work Phone: Start: 12-21-2023 End: 84-32-2025Zwtlie OnlyJosh Hearn MANAGER SIGN Work Phone: [facility] CWM FMComment on above:Encounter for wellness examination in adult (Primary Dx)Start: 12-21-2023 End: 62-57-5750Nmmejqw encounter statusJosh Hearn MANAGER SIGN Work Phone: [facility] Work Phone: Start: 12-12-2023 End: 31-88-6677Rrzwzpr preventive medicine new patient 65yrs&>Josh Hearn MANAGER SIGN Work Phone: [facility] CWM FMComment on above:Primary hypertension (CMS/HCC) (Primary Dx); Encounter for wellness examination in adult; Seasonal allergies; Seasonal allergic rhinitis, unspecified trigger; Screening for hyperlipidemia; Screening for diabetes mellitusStart: 12-12-2023 End: 81-42-7565ygynfczdfsMEOMANOW FITZPATRICKNot AvailableStart: 12-12-2023 End: 60-18-0051Mthemk flowsheetJosh Hearn MANAGER SIGN Work Phone: [facility] FMStart: 12-12-2023 End: 23-22-5182Xfuhfd flowsheetJosh Hearn MANAGER SIGN Work Phone: [facility] CW FMStart: 12-12-2023 End: 61-47-6854Sfuatal encounter statusJosh Hearn MANAGER SIGN Work Phone: [facility] HealthcareStart: 11-01-2023 End: 29-03-5027ypnxbiliopQtiwvbkukC[facility] Clinic [facility] Work Phone: Start: 11-01-2023 End: 77-10-6792Halkmml encounter procedureGood Hope Hospital Physician [facility] [place] Work Phone: Start: 10-15-2023 End: 41-19-1374ryervhyhskBPQJEGNP E PERRYFacility:[facility]vueStart: 10-15-2023 End: 13-53-8477Uerjskx encounter procedureJENNIFER E MAXIMILIANO [facility] start: 03-19-2023 End: 86-35-3163rmpeadglqeBfgd Hahn Other [employer] Other Start: 48-12-5603Flllqb outpatient visit 15 minutes Myrna GoldenG [facility] ClydeStart: 03-15-2023 End: 07-30-3238nztkfcvzbtSnqcuk Igor Other [employer] Other Start: 16-70-2212Chavyysum encounterAmanda GrobFPG Urgent Care ClydeStart: 03-14-2023 End: 40-08-2748ysjqukeluoNimand Igor Other [employer] Other Start: 98-44-3133Xrkhhf outpatient visit 15 minutes Magnolia GrobFPG [facility] Care ClydeStart: 10-17-2022 End: 52-96-2968Jehttzv encounter procedureJEALFIE RICHMOND [facility] Stefania start: 05-24-2022 End: 93-42-4530cghvrjrzqsYM CHARLES LISAFacility:P8Fbdlr: 04-16-2022 End: 68-46-4645Pomsmhx encounter procedureRobjose CHAVEZ [facility] [place] Start: 01-26-2022 End: 10-02-6608dombmovtwgUP MURALI CHAVEZFacility:A4Iyrxy: 10-16-2021 End: 04-25-2454Grspmpo encounter procedureRobjose CHAVEZ [facility] [place] Start: 09-08-2021 End: 32-46-6693fdrrvmfdtqYS CHARLES LISAFacility:V6Qldcc: 09-01-2021 End: 97-06-5410rlnewddxaiQDBerna GONZALEZFacility:C6Hpvhl: 06-19-2018 End: 96-59-7596Ncqdnlz encounter procedureJACHIN [facility] HospitalStart: 05-29-2018 End: 43-68-5569Gnakvep encounter procedureJAMES E [facility] Procedures DateProcedureProcedure DetailPerforming ClinicianStart: 94-01-2026Cajeefhoxktrso aspir&/inj major jt/bursa w/o usMaria B Apling MANAGER SIGN Work Phone: Start: 38-72-1353Nvfzamyzownrhu aspir&/inj major jt/bursa w/o usMaria B Apling MANAGER SIGN Work Phone: Start: 21-07-7695Pfjdg shoulder complete minimum 2 viewsMaria B Apling MANAGER SIGN Work Phone: Start: 30-84-2069KEF screeningDR FREDERICK HOUSEComment on above:Performed By: #### PSAD #### [facility] [address] [place] [address] Dr. Lazaro SamAppendectomyRobert RICE Decompression of median nerveRobert RICE Plan of Treatment DateCare ActivityDetailAuthorStart: 92-74-6977Opqmxhzerwnj Vaccine: 65+ Years (1 of 1 - PCV)Pneumococcal Vaccine: 65+ Years (1 of 1 - PCV)[facility] HealthcareComment on above:Postponed from 09/04/2012 (Patient Refused)Start: 09-12-2025Medicare Annual Wellness (AWV)Medicare Annual Wellness (AWV)[facility] HealthcareStart: 57-33-7724Rmrcxnska vaccinationInfluenza Vaccine (Season Ended)[facility] Start: 07-01-2024 End: 97-11-0521Cuwblfr encounter zaokrwwkj81/02/2025 10:50 AM EDT Office Visit [facility] [address] [facility] [address] [place] [address] Eda Junior MD [address] [facility] [address] [place] [address] ArrivedNOMS CI ENTComment on above:ArrivedStart: 03-12-2024 End: 34-63-9950Cciwxfq encounter /12/2024 3:30 PM EST [facility] Visit [facility] [address] [place] [address] Josh Hearn NP [address] [place] [id number] [facility] CW FMStart: 03-09-2024 End: 22-87-7032Kozvfpa encounter procedureNOMS CI ORTHOPAEDICSComment on above: Left shoulder pain, unspecified chronicity (Primary Dx); Glenohumeral arthritis, left; Arthritis of left acromioclavicular joint; Impingement of left shoulderStart: 12-53-7429Sczrdbvrr vaccinationInfluenza Vaccine (#1)[facility] HealthcareComment on above:Postponed from 12/01/2023 (Patient Refused)Start: 01-09-2024 End: 37-74-3276Gxvuatk encounter jrdkcujhq52/10/2024 2:00 PM EDT Office Visit [facility] [address] [place] [address] Josh Hearn, LINA [address] [place] [address] ArrivedNOMS CWM FMComment on above:ArrivedStart: 12-21-2023 End: 55-61-396524361392-mhyabyvlgxqxwq D3 [Mass/volume] in Serum or PlasmaVitamin D 25 hydroxy Lab Routine Encounter for wellness examination in adult Expected: 12/21/2023 (Approximate), Expires: 12/20/2024[facility] Work Phone: Comment on above:Expected: 12/21/2023 (Approximate), Expires: 12/20/2024Start: 12-13-2023 End: 58-43-9933UOW W Auto Differential panel - BloodCBC and differential Lab Routine Primary hypertension (CMS/HCC) Expected: 12/13/2023 (Approximate), Expires: 12/12/2024[facility] HealthcareComment on above:Expected: 12/13/2023 (Approximate), Expires: 12/12/2024Start: 12-13-2023 End: 25-99-8030Tfpbycjygrscx metabolic 2000 panel - Serum or PlasmaComprehensive metabolic panel Lab Routine Primary hypertension (CMS/HCC) Screening for diabetes mellitus Expected: 12/13/2023 (Approximate), Expires: 12/12/2024[facility] HealthcareComment on above:Expected: 12/13/2023 (Approximate), Expires: 12/12/2024Start: 12-13-2023 End: 47-32-6559Wkizsfhdwd A1c/Hemoglobin.total in BloodHemoglobin A1c Lab Routine Screening for diabetes mellitus Expected: 12/13/2023 (Approximate), Expires: 12/12/2024[facility] HealthcareComment on above:Expected: 12/13/2023 (Approximate), Expires: 12/12/2024Start: 12-13-2023 End: 54-88-9580Uaxkh 1996 panel - Serum or PlasmaLipid panel Lab Routine Primary hypertension ([facility]/HCC) Screening for hyperlipidemia Expected: 12/13/2023 (Approximate), Expires: 12/12/2024[facility] HealthcareComment on above:Expected: 12/13/2023 (Approximate), Expires: 12/12/2024Start: 12-13-2023 End: 59-37-2118DOB W/REFLEX TO FT4TSH W/REFLEX TO FT4 Lab Routine Primary hypertension (CMS/HCC) Expected: 12/13/2023 (Approximate), Expires: 12/12/2024 [facility] Healthcare Work Phone: Comment on above:Expected: 12/13/2023 (Approximate), Expires: 12/12/2024Start: 12-12-2023 End: 10-29-6561Sakuoct encounter stphcpuar29/12/2024 3:00 PM EDT Office Visit [facility] [address] [place] [address] Josh Hearn, MANAGER SIGN [address] [place] [address] [facility]rivedANAHEIM [facility] FMComment on above:ArrivedStart: 12-01-2023 Influenza vaccinationInfluenza Vaccine (#1)[facility] HealthcareStart: 09-04-2012 Pneumococcal Vaccine: 65+ Years (1 of 1 - PCV)Pneumococcal Vaccine: 65+ Years (1 of 1 - PCV)[facility] HealthcareStart: 06-06-1948Medicare Annual Wellness (AWV) Medicare Annual Wellness (AWV)[facility] Healthcare Shoulder - left [facility] Immunizations Immunization DateImmunizationNotesCare CqvbzvmaRbyctwcj84-28-7154NWPNCWP - Respiratory syncytial virus (RSV), vaccine, bivalent, protein subunit RSV prefusion F, diluent reconstituted, 0.5 mL, PFBrittany Hearn MANAGER SIGN Work Phone: [facility] CenterWaffoknhnf89-62-1729XZWL-HfL-9 (COVID-19) mRNA BNT-162b2 vaxRobert [employer] [facility] HospitalyComment on above:Result Comment: 2022-04-16: [id number] (COVID-19) mRNA BNT-162b2 vaxRPixSpree [facility] [id number] (COVID-19) mRNA BNT-162b2 vax [employer] [facility]03-26-2021SARS-CoV-2 (COVID-19) mRNA-1273 vaccineRobert [employer] [facility] [id number] (COVID-19) mRNA BNT-162b2 vax [employer] [facility]03-05-2021SARS-CoV-2 (COVID-19) mRNA-1273 vaccineRobert [employer] [facility] [id number] toxoid, reduced diphtheria toxoid, and acellular pertussis vaccine, adsorbedRobert RICE [facility]07-11-2013pneumococcal vaccine, unspecified formulationJosh Ramirezzpatrick MANAGER SIGN Work Phone: [facility] Payers DatePayer CategoryPayerPolicy [id number] [id number] Private Health [id number] [id number] [id number]. [id number] [id number] [id number] 2.0.1.372643.3.57[id number] 2.0.1.188532.3.57[id number] 2.0.1.661070.3.57[id number] 2.0.1.599635.3.57[id number] 2.0.1.574126.3.57[id number] 2.840.1.441453.3.57[id number] 2.840.1.311555.3.57[id number] 2.840.1.115962.3.57[id number] 2.840.1.805612.3.57[id number] 2.16.840.1.663950.3.57[id number] 2.16.840.1.608323.3.57[id number] 2.16.840.1.057332.3.57[id number] 2.16.840.1.904334.3.57[id number] 2.16.840.1.409168.3.57[id number] 2.16.840.1.424710.3.57[id number] 2.16.840.1.3[id number] 2.16.840.1.808355.19 Social History DateTypeDetailFacilityStart: 04-17-2021 End: 49-64-2676Lvgjggh smoking statusNever smoked tobacco (finding)[facility] Tobacco smoking statusNeverExecutive Urology [facility] Start: 12-12-2023 End: 76-06-0778Uun Assigned At [facility] Start: 72-93-0297Jff Assigned At [facility]art: 44-83-9136Pgwtiac use and exposureSmokeless tobacco non-userNOMS HealthcareStart: 12-12-2023 End: 68-65-3125Jqatkljwp beverage intakeLifetime non-drinker (finding)[facility] HealthcareStart: 12-12-2023 End: 59-27-0277Ppafsng of Social functionNOCO HealthcareStart: 83-29-9511Tsh assigned at birthNot on [facility] HospitalTobacco smoking status NHISTobacco smoking consumption unknownNOCO HealthcareStart: 09-27-2018 End: 18-58-5516ZyhKrxw (finding)[facility] Jacksonexual OrientationExec[facility] NEGATED: Highlighted rowStart: NINFHistory of tobacco usePassive smokerNOCO Healthcare Functional Status ZlrmRlqdbmlkpzHqoowhShnlcvur52-92-6427Jqlchshuny StatusN/AExec[facility]07-19-2023Functional StatusN/A[facility]01-16-2023Functional StatusN/A [facility]07-18-2022Functional StatusN/A[facility] Clinical Notes 10-16-2021 to 10-12-2024 Note Date & TxrqAleuVpxsybfp07-59-6352 Hospital Discharge instructions Patient Education 10/12/2024 13:29:44 [...] urethra. Follow these instructions at home: Take gjyx-dtc-uaoydih and prescription medicines only as told by [...] provider. Document Revised: 10/04/2021 Document Reviewed: 10/04/2021 [employer] Patient Education 2023 [employer] (Former[employer]). Follow Up Care 04/15/2024 11:27:11 With:MAXIMILIANO MAIER, EWA Zapien, URL Address: [address] [address] When:Within 1 Year(s) [facility] 07-14-2025 Evaluation + Plan note Diagnostic Tests Pending * Testosterone Level Total 10/12/24 * Hemoglobin and Hematocrit 10/19/24 * Lipid Panel 10/19/24 * Hepatic Function Panel 10/19/24 * PSA Screen, Total 10/19/24 [facility] 07-14-2025 NotePatient Education Urology Benign Prostatic [...] Follow these instructions at home: ??? Take eqyk-hss-hflxriv and prescription medicines only as told by [...] symptoms do not get (more content not included)...[facility]07-10-2025 Evaluation note* Diagnosis Onset Date Resolution Status Admit Date Insect bites noneactiveJuly 2024 11:28amPrimary osteoarthritis, left shoulderacute November 16, 2024 11:03am [facility] Work Phone: [phone]) 939-430707-10-2025 Evaluation note* Diagnosis Onset Date Resolution Status Admit Date Insect bites noneactiveJuly 2024 11:28amPrimary osteoarthritis, left shoulderacute November 16, 2024 11:03amCentral apneaacuteSeptember 2024 1:32pmChronic insomniaacuteSeptember 2024 1:32pmHypnotic dependenceacuteSept2024 1:32pmObstructive sleep apneaacuteSept2024 1:32pOhioHealth [facility] Work Phone: 1(395) 387-811004-02-2025 History of Present illness Narrative* Eda Junior [...] below the titrated pressure documented in this encounterMissouri Baptist Medical CenterZfmjfhyrmy16-18-2305 History of Present illness Narrative* Brii Oconnor [...] as tolerated, f/U prn documented in this encounterMissouri Baptist Medical CenterOckoevjgxo69-69-0538 History of Present illness Narrative* Brii Oconnor [...] arthritis of the glenohumeral joint. Brii Oconnor SALES DEVELOPMENT MANAGER L Inj/Asp: L subacromial bursa on 02/17/2024 [...] f/u in 2 weeks. 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 Was seen in Ed on 12/31/23; Dx with [place] Palsy. Had a sinusinfection the weeks prior; [...] for Follow-up. HPI Was in ED for [place] Palsy on 12/31/2023- Had a sinus infection [...] seen in Ed on 12/31/23; Dx with [place] Palsy. Had a sinusinfection the weeks prior; [...] first. Pt verbalized understanding. documented in this encounterMissouri Baptist Medical CenterYwmveuxqmv93-49-2332 History of Present illness Narrative* Josh Hearn [...] for Establish Care (/). HPI Specialists: Neurology- [facility] Urology- Dr. Richmond HTN: Pt changed [...] (Diovan) 80 MG tablet documented in this encounterMissouri Baptist Medical CenterEmeqatdyfb52-95-9561 Instructions* Patient Instructions* Josh Hearn NP - [...] day. Consider tracking your food intake on MySYLLETAinessPal or LoseIt Water: Increase water intake; GOAL [...] of sleep per night. documented in this encounterMissouri Baptist Medical CenterGdeowileov14-16-2608 Hospital Discharge instructions Patient Education 10/15/2023 13:38:59 [...] therapy. Follow these instructions at home: Take zjhl-xet-mdkfiuy and prescription medicines only as told by [...] provider. Document Revised: 11/17/2020 Document Reviewed: 11/17/2020 [employer] Patient Education 2022 [employer] (Formerly [employer]). Follow Up Care 10/17/2022 15:04:57 With:EWA RICHMOND PA-C, URL Address: [address] [place] [address] [phone] When: Unknown Comments:1 year w/ PSA, LFTs, Lipids, H&H, total T level [facility] 07-16-2024 Evaluation + Plan note Diagnostic Tests Pending * Testosterone Level Total 10/15/23 * Hepatic Function Panel 10/15/23 * Lipid Panel 10/15/23 * Hemoglobin and Hematocrit 10/15/23 * PSA Total 10/15/23 [facility] Stefania 07-16-2024 NotePatient Education Urology Hypogonadism, [...] Follow these instructions at home: ? Take bved-lve-wweqfly and prescription medicines only as told by [...] care provider. Document Revised: (more content not included)...[facility] 03-19-2023 Evaluation note* Encounter Date [...] today 120s/80s, he reports white coat syndrome. [facility] Other 12-14-2023 Evaluation note* Encounter Date Diagnosis [...] (suspected) exposure to covid-19 (ICD-10 - Z20.822) [facility] Other 07-19-2023 Hospital Discharge instructions Patient Education [...] therapy. Follow these instructions at home: Take tuae-qbt-nnryywk and prescription medicines only as told by [...] provider. Document Revised: 11/17/2020 Document Reviewed: 11/17/2020 [employer] Patient Education 2022 [employer] (Formerly [employer]). Follow Up Care 08/31/2022 12:38:12 With:MAXIMILIANO MAIER EWA Curry, URL Address: [address] [place] [address] When: Unknown [facility] 01-16-2023 Hospital Discharge instructions Patient Education [...] 06/24/2001 Document Revised: 07/09/2019 Document Reviewed: 02/11/2017 [employer] Patient Education 2020 [employer] (Former[employer]). Follow Up Care 10/16/2021 15:07:22 With:SCOTT HOANG, Murali W, URL Address: [address] [place] [address]- When:6 months Comments:PSA & testosterone [facility] 07-18-2022 Hospital Discharge instructions Patient Education 10/16/2021 [...] urethra. Follow these instructions at home: Take muco-wrh-pvxnkqt and prescription medicines only as told by [...] 03/18/2006 Document Revised: 02/10/2019 Document Reviewed: 04/22/2017 [employer] Patient Education 2020 [employer] (Former[employer]). Follow Up Care 04/17/2021 14:02:48 With:Murali CHAVEZ MD, URL Address: [address] [place], [place] [address]- When:3 months Comments:Testosterone level [facility] Brainjuiceraluation + Plan note Future Appointments Appointment Date:04/16/2022 02:15:00 PM Scheduled Provider:Murali CHAVEZ MD Location:[facility] Appointment Type:URO Office Visit Diagnostic Tests Pending * Testosterone Level Total 10/16/21 [facility] Brainjuiceraluation + Plan note Future Appointments Appointment Date:10/15/2022 02:15:00 PM Scheduled Provider:Murali CHAVEZ MD Location:[facility] Appointment Type:URO Office Visit Diagnostic Tests Pending * PSA Total 04/16/22 * Testosterone Level Total 04/16/22 [facility] Evaluation + Plan note Future Appointments Appointment Date:10/23/2023 01:20:00 PM Scheduled Provider:EWA RICHMOND PA-C Location:[facility] Appointment Type:URO Office Visit Diagnostic Tests Pending * PSA Total 08/31/23 * Testosterone Level Total 10/17/22 * Hemoglobin and Hematocrit 08/31/23 * Hepatic Function Panel 08/31/23 * Lipid Panel 6/1/24 [facility] [place] evaluation noteNo [facility] [employer] Other Evaluation note* Diagnosis Onset Date Resolution Status Bee sting reaction acute [facility] Work Phone: Evaluation note* Diagnosis Onset Date Resolution Status Bee sting reaction acuteAcute maxillary sinusitis, unspecifiedacute [facility] Work Phone: Evaluation note* Diagnosis Primary [...] of left shoulder documented in this encounter [facility] HealthcareEvaluation note* Diagnosis Encounter for wellness examination in adult- Primary documented in this encounter [facility] HealthcareEvaluation note* Diagnosis Onset Date Resolution Status Admit Date Bronchitis acuteFebruary 2024 9:08am [facility] Work Phone: Evaluation note* Diagnosis Primary [...] mention of obstruction documented in this encounter [facility] HealthcareEvaluation noteNo assessment information availableFirAdena [facility]ayette Medical Center Work Phone: History general Narrative - Reported* Type Description Date Medical History glaucoma Medical HistoryinsomniaMedical HistoryGERD (gastroesophageal reflux disease) Medical HistoryHypothyroidismSurgical HistorytonsillectomySurgical History appendectomySurgical Historycarpal tunnel release rightHospitalization History see above [facility] Other Hospital course Narrative No data available for this section [facility] Progress note No data available for this section [facility] Reason for referral (narrative)No reason for referral information availableOhiohealth Dublin Methodist Hospital Work Phone: Summary Purpose Family History [...] section and content) DATE CREATED AUTHOR 06/20/2018 [facility] DATE CREATED AUTHOR AUTHOR'S ORGANIZ ATION 05/29/2022 [facility] DATE CREATED AUTHOR AUTHOR'S ORGANIZ ATION 01/05/2024 [facility] DATE CREATED AUTHOR AUTHOR'S ORGANIZ ATION 07/04/2024 [facility] DATE CREATED AUTHOR AUTHOR'S ORGANIZ ATION 10/14/2024 [facility] DATE CREATED AUTHOR AUTHOR'S ORGANIZ ATION 02/09/2025 [facility] DATE CREATED AUTHOR AUTHOR'S ORGANIZ ATION 02/11/2025 [facility] Care Team (unrecognized sect ion and [...] Date Roddy Orona MD [address] [place] [address] PCP - GeneralFamily Medicine12/09/23 Josh Hearn NP [address] [place] [address] Nurse PractitionerFamily Medicine12/09/23Team MemberRelationshipSpecialtyStart DateEnd Date Roddy Orona MD [address] [place] [address] PCP - GeneralFamily Medicine12/09/23 Josh Hearn NP [address] [place] [address] Nurse Practitionermily Medicine12/09/23Team MemberRelationshipSpecialtyStart DateEnd Date Frederick Gonzalez MD [address] [place] [address] PCP - [facility]Cl[facility]ally Atpwmdgg95/18/24Team MemberRelationshipSpecialtyStart Date End Date Frederick Gonzalez MD [address] [place] [address] PCP - [facility]Cl[facility] Hospitally Hgbqtlfz24/18/24Team MemberRelationshipSpecialtyStart Date End Date Frederick Gonzalez MD [address] [place] [address] PCP - [facility]02/17/24Team MemberRelationshipSpecialtyStart Date End Date Roddy Orona MD [address] [place] [address] PCP - GeneralFamily Medicine12/09/23 Josh Hearn NP [address] [place] [address] Nurse PractitionerWay[facility] Hospital12/09/23Te MemberRelationshipSpecialtyStart DateEnd Date Roddy Orona MD [address] [place] [address] PCP - GeneralFamily Medicine12/09/23 Josh Hearn, LINA [address] [place] [address] Nurse Practitionermily Medicine12/09/23Team MemberRelationshipSpecialtyStart DateEnd Date Frederick Gonzalez MD [address] [place] [address] [facility] - [facility]Wh[facility] Tghvwakb98/18/24Team MemberRelationshipSpecialtyStart Date End Date Frederick Gonzalez MD [address] [place] [address] PCP - GeneralWayne [facility] Hospital02/17/24Team MemberRelationshipSpecialtyStart Date End Date Roddy Orona MD [address] [place] [address] PCP - GeneralFamily Medicine12/09/23 Josh Hearn NP [address] [place] [address] Nurse PractitionerWayne Memorial Hospital12/09/23 Team Status: Inactive Member Role Status Dates Frederick Gonzalez DO Primary Care Provider Active Start: May 09, 2024 End: May 09kirk Costa APRNAtdawna ProviderActiveStart: May 09, 2024 End: May 09, 2024Team MemberRelationshipSpecialtyStart DateEnd Date Frederick Gonzalez MD [address] [place] [address] PCP - GeneralFamily Hbjqbzvq16/18/24Team MemberRelationshipSpecialtyStart Date End Date Frederick Gonzalez MD [address] [place] [address] PCP - GeneralFamily Ffkrqggg01/18/24 Team Status: Inactive Member Role Status Dates [...] BE BASED ON THE PRIMARY CLINICAL RECORDS. [facility]. provides no warranty or guarantee of the accuracy or completeness of information in this document.
[2025-03-08 08:11] VITALS: BP 150/78; PULSE 75; TEMP 36.9; O2SAT 97
[2025-03-08 08:48] VITALS: BP 173/93; PULSE 78; O2SAT 98
[2025-03-08] MEDS: BUPIVACAINE HCL 0.25% PF 25 MG/10 ML VIAL 5 ML INJ (08:54)
[2025-03-08] MEDS: LIDOCAINE HCL 2% 400 MG/20 ML MDV 12 ML INJ (08:55)
[2025-03-08] MEDS: METHYLPREDNISOLONE ACETATE 40 MG/ML VIAL INJ (08:55)
[2025-03-08 08:56] VITALS: BP 167/93; PULSE 78; O2SAT 98
--- NOTE | 2025-03-08 08:57 | W.PM.PROCNOT ---
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 Informed consent was obtained and placed on the chart.? The patient was brought to the medical procedure unit and placed in the prone position. A timeout was completed verifying correct patient, procedure site, positioning, plan, and special equipment.? Using aseptic technique, under direct fluoroscopic visualization, a 20-gauge 15 cm with a 10 mm curved active tip radiofrequency cannula was advanced to the superior portion of the left posterior osseous rim of the glenoid fossa, lateral and superior to the spinal glenoid notch. Motor stimulation was carried out at 2 Hz up to 5 volts with the absence of extremity activity. Then radiofrequency lesioning was carried out for 90 seconds at 80 degrees.? The needle was then redirected 3 mm inferiorly and another lesioning was carried out for 90 seconds at 80 degree.? Using aseptic technique, under direct fluoroscopic visualization, another 20-gauge 15 cm with a 10 mm curved active tip radiofrequency cannula was advanced toward the most inferior and lateral border of the greater tubercle. Motor stimulation was carried out at 2 Hz up to 5 volts with the absence of extremity activity. Then radiofrequency lesioning was carried out for 90 seconds at 80 degrees.? The needle was then redirected 3 mm inferiorly and another lesioning was carried out for 90 seconds at 80 degree.? The patient was taken to the postprocedural recovery area and monitored for an appropriate length of time before being found suitable for discharge in the accompaniment of a responsible adult. Anesthesia: Local Surgeon: David Jones Pathology: none sent Condition: stable Disposition: no change
== END 2025-03-08 09:02 | disposition home or self-care (01) ==
PROVIDERS: PCP Family Medicine; Visit Provider Anesthesiology
DX: M19.012 Primary osteoarthritis, left shoulder (principal)
CPT/HCPCS: 64640; J0665; J1010